=== PATIENT | male | born 1965 | race Caucasian/White ===

== ENCOUNTER 2016-08-18 16:38 | Emergency (ER) | payer MEDICAID ==
[2016-08-18] MEDS ORDERED: LIDOCAINE-EPINEPH-TETRACAINE 3 ML SYRINGE TOP STA (17:40)
[2016-08-18] MEDS ORDERED: CEPHALEXIN 250 MG CAPSULE PO STA (17:41)
[2016-08-18] MEDS ORDERED: LIDOCAINE-EPINEPH-TETRACAINE 3 ML SYRINGE TOP ONE (17:47)
[2016-08-18] MEDS ORDERED: CEPHALEXIN 250 MG CAPSULE PO ONE (17:47)
--- NOTE | 2016-08-18 17:55 | ED Physician Documentation ---
History of Present Illness - Stated complaint Stated Complaint: R FACE LUMP, R WRIST PX - Chief complaint Chief Complaint: Heent - Additonal information Additional information: hx from pt 50 male insidious onset R wrist pain - he may have hit it or fallen but he isnt certain - per daughter it is not uncommon for him not to remember something like an injury also small abscess to R cheek and small sores to R hand and arm no hx MRSA Review of Systems Constitutional: denies: Fever Skin: reports: Lesions Musculoskeletal: reports: Extremity pain PD PAST MEDICAL HISTORY - Past Medical History Past Medical History: Yes Cardiovascular: High cholesterol Endocrine/Autoimmune: Type 2 diabetes Other Past Medical History: chronic neck pain - Past Surgical History Past Surgical History: Yes General: Appendectomy - Present Medications Home Medications: Ambulatory Orders Medication Instructions Recorded Confirmed Aspirin [Aspirin EC] 81 mg PO DAILY 08/18/16 08/18/16 Atorvastatin [Lipitor] 10 mg PO DAILY 08/18/16 08/18/16 Cephalexin [Keflex] 500 mg PO Q6H #28 capsule 08/18/16 Cyclobenzaprine [Flexeril] 10 mg PO DAILY 08/18/16 08/18/16 Gabapentin 300 mg PO DAILY 08/18/16 08/18/16 Lisinopril 5 mg PO DAILY 08/18/16 08/18/16 Mupirocin Calcium [Bactroban] 1 applic TP BID #15 g 08/18/16 Sitagliptin Phosphate [Januvia] 25 mg PO DAILY 08/18/16 08/18/16 - Allergies Allergies/Adverse Reactions: Allergies Allergy/AdvReac Type Severity Reaction Status Date / Time No Known Drug Allergies Allergy Verified 08/18/16 16:52 - Social History Does the pt smoke?: No Smoking Status: Never smoker Does the pt drink ETOH?: No Does the pt have substance abuse?: Yes PD ED PE NORMAL - Vitals Vital signs reviewed: Yes - General General: Alert and oriented X 3 - HEENT HEENT: PERRL, Other (approx 2 cm diamter firm swelling c.w small abscess) - Neck Neck: Supple, no meningeal sign - Cardiac Cardiac: RRR - Respiratory Respiratory: No respiratory distress, Clear bilaterally - Neuro Neuro: Alert and oriented X 3 Results - Vitals Vitals: Vital Signs - 24 hr 08/18/16 16:46 Temperature 36.3 C L Heart Rate 88 Respiratory 18 Rate Blood Pressure 124/90 H O2 Saturation 98 - Rads (name of study) wrist Radiology: See rad report (no acute, suspect avascular necrosis of the scaphoid) Procedures - Abscess I&D (location) face Preparation: Alcohol, LET Incision: Needle aspiration (2.5cc), Purulent drainage, Culture obtained Other: Pt tolerated well, Dressing applied, Antibiotic prescribed Departure - Departure Disposition: 01 Home, Self Care Clinical Impression: Abscess, Avascular necrosis of scaphoid Condition: Good Instructions: ED Abscess IandD Follow-Up: [facility] [Provider Group] Prescriptions: Mupirocin Calcium [Bactroban] 1 applic TP BID #15 g Cephalexin [Keflex] 500 mg PO Q6H #28 capsule Comments: Take the antibiotics as prescribed The xray did not show a new fracture but is appears you have injured a wrist bone called the scaphoid in the past and it did not heal properly because of poor blood flow - you need to follow up with an seo marketing specialist for further care
--- NOTE | 2016-08-18 18:38 | XRAY Preliminary Report ---
Exam: XR Wrist 4 View RT IMPRESSION: 1. No acute bony abnormality. 2. Suspect avascular necrosis of the scaphoid. [facility] SITE ID: [id number]
[2016-08-18 18:45] VITALS: BP 123/93
--- NOTE | 2016-08-18 19:05 | XRAY Report ---
EXAM: RIGHT WRIST RADIOGRAPHY EXAM DATE: 08/18/2016 05:57 PM. CLINICAL HISTORY: Distal radial pain for several days. No precipitating injury. COMPARISON: None. TECHNIQUE: 4 views. FINDINGS: Bones: Trabecular and cortical patterns intact. Inhomogeneous sclerosis, proximal 60% of the scaphoid . Joints: Normal. No subluxations. Soft Tissues: Normal. No soft tissue swelling. IMPRESSION: 1. No acute bony abnormality. 2. Suspect avascular necrosis of the scaphoid. [facility] Referring Provider Line: [phone] SITE ID: [id number]
== END 2016-08-18 19:16 | disposition home or self-care (01) ==
LOC: ED 16:38
DX: L02.01 Cutaneous abscess of face (principal); M87.9 Osteonecrosis, unspecified; E78.00 Pure hypercholesterolemia, unspecified; E11.9 Type 2 diabetes mellitus without complications; Z79.84 Long term (current) use of oral hypoglycemic drugs; Z79.82 Long term (current) use of aspirin
CPT/HCPCS: 99283

== ENCOUNTER 2016-08-18 22:03 | Outpatient (CLI) | payer MEDICAID | END 2016-08-18 22:04 | disposition critical access hospital (66) | LOC: EMS 22:03 | PROVIDERS: ATTEND Surgery | DX: R53.1 Weakness (principal); R61 Generalized hyperhidrosis; R53.83 Other fatigue; R73.09 Other abnormal glucose | CPT/HCPCS: A0425; A0427 ==

== ENCOUNTER 2016-08-18 22:21 | Emergency (ER) | payer MEDICAID ==
[2016-08-18 23:37] LABS: BASOPHILS % (AUTO) 0.5 %; EOSINOPHILS # (AUTO) 0.2 10^3/uL (0.0-0.7); EOSINOPHILS % (AUTO) 3.1 %; HCT - HEMATOCRIT 42.7 % (42.0-52.0); HGB - HEMOGLOBIN 14.2 g/dL (14.0-18.0); LYMPHOCYTES # (AUTO) 1.7 10^3/uL (1.5-3.5); LYMPHOCYTES % (AUTO) 22.5 %; MEAN CORPUSCULAR HEMOGLOBIN 30.3 pg (27.0-31.0); MEAN CORPUSCULAR HGB CONC 33.3 g/dL (32.0-36.0); MEAN PLATELET VOLUME 10.7 fL (7.4-11.4); MONOCYTES # (AUTO) 0.9 10^3/uL (0.0-1.0); MONOCYTES % (AUTO) 11.5 %; NEUTROPHILS # (AUTO) 4.7 10^3/uL (1.5-6.6); NEUTROPHILS % (AUTO) 62.4 %; RED BLOOD COUNT 4.69 10^6/uL (4.70-6.10); RED CELL DISTRIBUTION WIDTH 13.1 % (12.0-15.0); UNCORRECTED WHITE BLOOD COUNT 7.5 x10^3/uL; WHITE BLOOD COUNT 7.5 x10^3/uL (4.8-10.8)
--- NOTE | 2016-08-18 23:41 | ED Physician Documentation ---
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 late in this walk, he became lightheaded, diaphoretic, had generalized weakness, and brief syncopal episode (lasting less than one minute; this is from patient's family member, who is in ED, very angry and offering brief answers to some of my questions; other questions regarding this incident are not answered, but instead are met with repeated requests for a phone manufacturing engineer machining). patient rapidly returned to baseline and presents to ED asymptomatic Review of Systems Constitutional: denies: Fever, Chills, Sweats Cardiac: reports: Reviewed and negative Respiratory: reports: Reviewed and negative GI: reports: Reviewed and negative Musculoskeletal: reports: Extremity pain (right wrist splint in place; no new pain). denies: Neck pain, Back pain Neurologic: reports: Syncope, LOC. denies: Generalized weakness, Focal weakness , Numbness, Seizure, Confused, Altered mental status, Headache, Head injury PD PAST MEDICAL HISTORY - Past Medical History Cardiovascular: High cholesterol Endocrine/Autoimmune: Type 2 diabetes - Past Surgical History Past Surgical History: Yes General: Appendectomy - Present Medications Home Medications: Ambulatory Orders Medication Instructions Recorded Confirmed Aspirin [Aspirin EC] 81 mg PO DAILY 08/18/16 08/18/16 Atorvastatin [Lipitor] 10 mg PO DAILY 08/18/16 08/18/16 Cephalexin [Keflex] 500 mg PO Q6H #28 capsule 08/18/16 08/18/16 Cyclobenzaprine [Flexeril] 10 mg PO PRN PRN 08/18/16 08/18/16 Gabapentin 300 mg PO PRN PRN 08/18/16 08/18/16 Insulin Aspart [NovoLOG] 10 units SQ TID 08/18/16 08/18/16 Insulin Glargine [Lantus] 25 unit SUBQ ONCE 08/18/16 08/18/16 Lisinopril 5 mg PO DAILY 08/18/16 08/18/16 Mupirocin Calcium [Bactroban] 1 applic TP BID #15 g 08/18/16 08/18/16 Sitagliptin Phosphate [Januvia] 25 mg PO DAILY 08/18/16 08/18/16 - Allergies Allergies/Adverse Reactions: Allergies Allergy/AdvReac Type Severity Reaction Status Date / Time pregabalin [From Lyrica] Allergy Unknown Verified 08/18/16 22:30 - Social History Does the pt smoke?: No Smoking Status: Never smoker Does the pt drink ETOH?: No Does the pt have substance abuse?: Yes PD ED PE NORMAL - Vitals Vital signs reviewed: Yes - General General: Alert and oriented X 3, No acute distress, Well developed/nourished, Other (polite, pleasant, cooperative patient in NAD) - HEENT HEENT: PERRL, EOMI, Moist mucous membranes, Other (right facial I&D site with bandage, no active discharge, mild swelling) - Neck Neck: Supple, no meningeal sign, No bony TTP - Cardiac Cardiac: RRR, No murmur - Respiratory Respiratory: No respiratory distress, Clear bilaterally - Derm Derm: Normal color, Warm and dry, No rash - Extremities Extremities: No edema - Neuro Neuro: Alert and oriented X 3, deicer element winder machine 2-12 intact, No motor deficit, No sensory deficit, Normal speech - Psych Psych: Normal mood, Normal affect PD ED PE EXPANDED - GCS Eye Opening: Spontaneous Motor: Obeys Commands Verbal: Oriented Total: 15 Results - Vitals Vitals: Oxygen O2 Source Room air - Labs Labs: Laboratory Tests 08/18/16 08/18/16 22:20 22:20 WBC 7.5 RBC 4.69 L Hgb 14.2 Hct 42.7 MCV 91.0 MCH 30.3 MCHC 33.3 RDW 13.1 Plt Count 172 MPV 10.7 Neut # 4.7 Lymph # 1.7 [place] # 0.9 Eos # 0.2 Baso # 0.0 Absolute Nucleated RBC 0.00 Nucleated RBCs 0.0 Sodium 137 Potassium 3.4 L Chloride 102 Carbon Dioxide 25 Anion Gap 10.0 BUN 9 Creatinine 0.8 Estimated GFR (MDRD) 102 Glucose 315 H Calcium 8.6 Total Bilirubin 0.5 AST 22 ALT 24 Alkaline Phosphatase 111 Total Protein 6.8 Albumin 4.1 Globulin 2.7 Albumin/Globulin Ratio 1.5 Lipase 43 PD MEDICAL DECISION MAKING - ED course Complexity details: reviewed old records, reviewed results, re-evaluated patient , considered differential, d/w patient Departure - Departure Disposition: Home, Self Care Clinical Impression: Syncope, Hyperglycemia Condition: Good Instructions: ED Hyperglycemia Diabetic, ED Fainting Unkn Cause Follow-Up: [facility] [Provider Group] [facility] [Provider Group] Discharge Date/Time: 08/19/16 01:08
[2016-08-18 23:43] LABS: ALBUMIN/GLOBULIN RATIO 1.5 (1.0-2.2); BILIRUBIN,TOTAL 0.5 mg/dL (0.2-1.0); CALCIUM 8.6 mg/dL (8.5-10.3); CREATININE 0.8 mg/dL (0.6-1.2); POTASSIUM 3.4 mmol/L (3.5-5.0); TOTAL PROTEIN 6.8 g/dL (6.7-8.2)
[2016-08-19] MEDS ORDERED: INSULIN REGULAR HUMAN 100 UNIT/1 ML 10 ML MDV IVP STA (00:13)
[2016-08-19] MEDS ORDERED: INSULIN NPH HUMAN 100 UNIT/1 ML 10 ML MDV SUBQ ONE (00:18)
[2016-08-19 00:36] VITALS: BP 117/90
== END 2016-08-19 01:08 | disposition home or self-care (01) ==
LOC: EDUNIT# → ED 22:21
DX: E11.65 Type 2 diabetes mellitus with hyperglycemia (principal); Z79.84 Long term (current) use of oral hypoglycemic drugs; R55 Syncope and collapse; L02.01 Cutaneous abscess of face; L98.9 Disorder of the skin and subcutaneous tissue, unspecified; M87.9 Osteonecrosis, unspecified; M25.531 Pain in right wrist; E78.00 Pure hypercholesterolemia, unspecified; Z79.82 Long term (current) use of aspirin
CPT/HCPCS: 10160; 36415; 73110; 80053; 83690; 85025; 96374; 99283; 99284; A9270; J1815

== ENCOUNTER 2016-09-18 18:36 | Emergency (ER) | payer MEDICAID ==
[2016-09-18] MEDS ORDERED: SODIUM CHLORIDE 0.9% 1,000 ML IV ONE (19:27)
[2016-09-18] MEDS ORDERED: ONDANSETRON 4 MG/2 ML VIAL IVP STA (19:27)
[2016-09-18] MEDS ORDERED: HYDROmorphone 1 MG/ML SYRINGE IVP STA ×2 (19:27→21:54)
--- NOTE | 2016-09-18 19:33 | ED Physician Documentation ---
PD HPI ABD PAIN - Stated complaint Stated Complaint: ABD PAIN - Chief complaint Chief Complaint: Abd Pain - History obtained from History obtained from: Patient - History of Present Illness Timing - onset: Other (50-year-old gentleman with history of appendectomy and chronic back pain presents with relatively sudden onset lower abdominal pain radiating up and down, worse on the left than the right starting about 4 p.m. today associated with mild constipation. He also complains of significant weight loss over the last month, he estimates 20 pounds. He's been nauseous but hasn't vomited. No fevers. [place] which she says is only notable for polyps.) Review of Systems Ten Systems: 10 systems reviewed and negative Constitutional: denies: Fever, Chills Cardiac: denies: Chest pain / pressure, Palpitations Respiratory: denies: Dyspnea, Cough GI: reports: Abdominal Pain, Nausea, Constipation. denies: Vomiting, Diarrhea, Hematemesis, Bloody / black stool : reports: Frequency. denies: Dysuria, Hesitancy PD PAST MEDICAL HISTORY - Past Medical History Past Medical History: Yes Cardiovascular: High cholesterol Endocrine/Autoimmune: Type 2 diabetes - Past Surgical History Past Surgical History: Yes General: Appendectomy - Present Medications Home Medications: Ambulatory Orders Medication Instructions Recorded Confirmed Aspirin [Aspirin EC] 81 mg PO DAILY 08/18/16 08/18/16 Atorvastatin [Lipitor] 10 mg PO DAILY 08/18/16 08/18/16 Cephalexin [Keflex] 500 mg PO Q6H #28 capsule 08/18/16 08/18/16 Cyclobenzaprine [Flexeril] 10 mg PO PRN PRN 08/18/16 08/18/16 Gabapentin 300 mg PO PRN PRN 08/18/16 08/18/16 Insulin Aspart [NovoLOG] 10 units SQ TID 08/18/16 08/18/16 Insulin Glargine [Lantus] 25 unit SUBQ ONCE 08/18/16 08/18/16 Lisinopril 5 mg PO DAILY 08/18/16 08/18/16 Mupirocin Calcium [Bactroban] 1 applic TP BID #15 g 08/18/16 08/18/16 Sitagliptin Phosphate [Januvia] 25 mg PO DAILY 08/18/16 08/18/16 Blood-Glucose Meter [Glucometer] 1 each ONCE #1 each 09/18/16 HYDROcod/ACETAM 5/325 [[place] 5/325] 1 - 2 ea PO Q6H PRN #15 tablet 09/18/16 rifAXIMin [Xifaxan] 550 mg PO BID 14 Days 09/18/16 - Allergies Allergies/Adverse Reactions: Allergies Allergy/AdvReac Type Severity Reaction Status Date / Time cinnamon Allergy Unknown Verified 09/18/16 18:45 pregabalin [From Lyrica] Allergy Unknown Verified 09/18/16 18:45 - Social History Does the pt smoke?: No Smoking Status: Never smoker Does the pt drink ETOH?: No Does the pt have substance abuse?: Yes Substance Use and Type: Marijuana - Family History Family history: reports: Non contributory - Immunizations Immunizations are current?: Yes PD ED PE NORMAL - Vitals Vital signs reviewed: Yes - General General: Alert and oriented X 3, Other (iin pain) - HEENT HEENT: PERRL, EOMI - Neck Neck: Supple, no meningeal sign, No bony TTP - Cardiac Cardiac: RRR, No murmur - Respiratory Respiratory: No respiratory distress, Clear bilaterally - Abdomen Abdomen: Soft, Other (Quite tender in the low abdomen, left greater than right with hyperactive bowel tones but no surgical signs.) - Back Back: No CVA TTP, No spinal TTP - Derm Derm: Normal color, Warm and dry - Extremities Extremities: No edema, No calf tenderness / cord - Neuro Neuro: Alert and oriented X 3, Normal speech - Psych Psych: Normal mood, Normal affect Results - Vitals Vitals: Vital Signs - 24 hr 09/18/16 09/18/16 09/18/16 18:40 19:42 21:40 Temperature 36.9 C 36.8 C 36.8 C Heart Rate 118 H 93 97 Respiratory 22 16 16 Rate Blood Pressure 140/103 H 127/86 H 122/92 H O2 Saturation 98 96 98 Oxygen O2 Source Room air - Labs Labs: Laboratory Tests 09/18/16 09/18/16 09/18/16 19:45 19:45 21:05 WBC 6.5 RBC 4.87 Hgb 15.0 Hct 44.2 MCV 90.6 MCH 30.8 MCHC 34.0 RDW 12.9 Plt Count 140 MPV 10.9 Neut # 4.1 Lymph # 1.5 [place] # 0.8 Eos # 0.1 Baso # 0.0 Absolute Nucleated RBC 0.00 Nucleated RBCs 0.0 Sodium 135 Potassium 3.6 Chloride 99 L Carbon Dioxide 26 Anion Gap 10.0 BUN 5 L Creatinine 0.7 Estimated GFR (MDRD) 118 Glucose 408 H Calcium 8.9 Total Bilirubin 0.6 AST 20 ALT 21 Alkaline Phosphatase 101 Total Protein 7.2 Albumin 4.2 Globulin 3.0 Albumin/Globulin Ratio 1.4 Lipase 31 Urine Color YELLOW Urine Clarity CLEAR Urine pH 5.5 Ur Specific [place] <=1.005 Urine Protein NEGATIVE Urine Glucose (UA) >=1000 H Urine Ketones TRACE Urine Occult Blood NEGATIVE Urine Nitrite NEGATIVE Urine Bilirubin NEGATIVE Urine Urobilinogen 0.2 (NORMAL) Ur Leukocyte Esterase NEGATIVE Ur Microscopic Review NOT INDICATED Urine Culture Comments NOT INDICATED - Rads (name of study) CT A/P Radiology: EMP read contemporaneously (Concern for small bowel bacterial overgrowth) PD MEDICAL DECISION MAKING - ED course ED course: 50-year-old gentleman with diabetes presents with diffuse abdominal pain today and some tenderness but his labs are reassuring with the exception of uncontrolled diabetes for which he was administered IV fluids and insulin here. Of note he is missing his glucometer and a new one was prescribed. CT is suggestive of small bowel overgrowth for which he was prescribed Xifaxan. 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 Make the next available appointment. In the interim return anytime if worse or if new symptoms develop. Your blood pressure was elevated today on check in to the emergency department. This does not mean that you have hypertension, it is a common phenomenon to check into the emergency department and have elevated blood pressure. I recommend that you see your primary care physician within the week to have it rechecked when you're feeling better.
[2016-09-18] MEDS ORDERED: ONDANSETRON 4 MG/2 ML VIAL ONE (19:47)
[2016-09-18] MEDS ORDERED: HYDROmorphone 1 MG/ML SYRINGE ONE ×2 (19:47→22:02)
[2016-09-18 20:02] LABS: BASOPHILS % (AUTO) 0.5 %; EOSINOPHILS # (AUTO) 0.1 10^3/uL (0.0-0.7); EOSINOPHILS % (AUTO) 1.5 %; HCT - HEMATOCRIT 44.2 % (42.0-52.0); LYMPHOCYTES # (AUTO) 1.5 10^3/uL (1.5-3.5); LYMPHOCYTES % (AUTO) 22.7 %; MEAN CORPUSCULAR HEMOGLOBIN 30.8 pg (27.0-31.0); MEAN CORPUSCULAR VOLUME 90.6 fL (80.0-94.0); MEAN PLATELET VOLUME 10.9 fL (7.4-11.4); MONOCYTES # (AUTO) 0.8 10^3/uL (0.0-1.0); MONOCYTES % (AUTO) 12.2 %; NEUTROPHILS # (AUTO) 4.1 10^3/uL (1.5-6.6); NEUTROPHILS % (AUTO) 63.1 %; RED BLOOD COUNT 4.87 10^6/uL (4.70-6.10); RED CELL DISTRIBUTION WIDTH 12.9 % (12.0-15.0); UNCORRECTED WHITE BLOOD COUNT 6.5 x10^3/uL; WHITE BLOOD COUNT 6.5 x10^3/uL (4.8-10.8)
[2016-09-18 20:17] LABS: ALBUMIN/GLOBULIN RATIO 1.4 (1.0-2.2); BILIRUBIN,TOTAL 0.6 mg/dL (0.2-1.0); CALCIUM 8.9 mg/dL (8.5-10.3); CREATININE 0.7 mg/dL (0.6-1.2); POTASSIUM 3.6 mmol/L (3.5-5.0); TOTAL PROTEIN 7.2 g/dL (6.7-8.2)
--- NOTE | 2016-09-18 21:22 | CT Report ---
EXAM: CT ABDOMEN AND PELVIS EXAM DATE: 09/18/2016 08:50 PM. CLINICAL HISTORY: IV only, low abd pain. 20 pound weight loss. COMPARISONS: None. TECHNIQUE: Routine helical CT imaging was performed through the abdomen and pelvis. IV contrast: Amt/ type. Enteric contrast: No. Reconstructions: Coronal and sagittal. In accordance with CT protocol optimization, one or more of the following dose reduction techniques w ere utilized for this exam: automated exposure control, adjustment of mA and/or KV based on patient s ize, or use of iterative reconstructive technique. FINDINGS: Lung Bases: Unremarkable. Liver: Normal. No masses. Gallbladder/Bile Ducts: Unremarkable. Spleen: Normal. Pancreas: Normal. Adrenal Glands: Normal. Kidneys: Normal. No masses or hydronephrosis. Peritoneal Cavity/Bowel: No dilated loops of small bowel. There is air and stool in the colon. There are segments of small bowel with stool. The appendix is not visualized but there are no secondary sig ns of acute appendicitis. Pelvic Organs: Normal. The bladder and visualized pelvic organs are within normal limits. Vasculature: No aneurysms or other significant abnormality. Bones: No significant abnormality. Other: None. IMPRESSION: 1. While there are no dilated loops of small bowel, there are multiple segments of small bowel contai lázaro stool (small bowel feces sign) which can be seen in the setting of obstruction or bacterial over growth. The second etiology is thought more likely in this particular case. Of note, there is a pauci ty of air and fluid within the small bowel. 2. There is a small amount of stool and air in the colon and rectum. 3. No inflammatory process associated with the bowel. No free air or fluid in the abdomen or pelvis. [facility] Referring Provider Line: [phone] SITE ID: [id number]
[2016-09-18 21:25] LABS: BILIRUBIN,URINE NEGATIVE (NEGATIVE); PH,URINE 5.5 PH (5.0-7.5)
[2016-09-18 21:27] LABS: UA CHARGE (STRIP ONLY) YES; UR CULTURE IF IND NOT INDICATED
[2016-09-18] MEDS ORDERED: HYDROcod/ACET 5/325 Prepack 6 PO STA (21:54)
[2016-09-18] MEDS ORDERED: CIPROFLOXACIN 250 MG TABLET PO STA (21:54)
[2016-09-18] MEDS ORDERED: metroNIDAZOLE 250 MG TABLET PO STA (21:54)
[2016-09-18] MEDS ORDERED: rifAXIMin 550 MG TABLET PO STA (21:55)
[2016-09-18] MEDS ORDERED: INSULIN REGULAR HUMAN 100 UNIT/1 ML 10 ML MDV IVP STA (21:56)
[2016-09-18] MEDS ORDERED: INSULIN REGULAR HUMAN 100 UNIT/1 ML 10 ML MDV ONE (22:03)
[2016-09-18] MEDS ORDERED: IOPAMIDOL-300 100 ML VIAL IVP ONE (22:06)
[2016-09-18] MEDS ORDERED: HYDROcod/ACET 5/325 Prepack 6 PO ONE (22:10)
[2016-09-18 22:30] VITALS: BP 135/99
--- NOTE | 2016-09-20 16:23 | ED Physician Documentation ---
ED Addendum - Addendum Addendum: 09/20/16 16:23 Xifaxan not covered by his insurance, authorized change to neomycin, 1 g orally 4 times a day for a week.
== END 2016-09-18 22:30 | disposition home or self-care (01) ==
LOC: ED 18:36
DX: A09 Infectious gastroenteritis and colitis, unspecified (principal); R10.84 Generalized abdominal pain; K59.00 Constipation, unspecified; R03.0 Elevated blood-pressure reading, without diagnosis of hypertension; E78.00 Pure hypercholesterolemia, unspecified; G89.29 Other chronic pain; M54.9 Dorsalgia, unspecified; E11.65 Type 2 diabetes mellitus with hyperglycemia; Z79.4 Long term (current) use of insulin; Z79.82 Long term (current) use of aspirin
CPT/HCPCS: 36415; 74177; 80053; 81003; 83690; 85025; 96361; 96374; 96375; 96376; 99283; 99284; J1170; J1815; J8499; Q9967; 81001; 87086

== ENCOUNTER 2016-09-22 14:41 | Outpatient (CLI) | payer MEDICAID | END 2016-09-22 14:42 | disposition critical access hospital (66) | LOC: EMS 14:41 | PROVIDERS: ATTEND Surgery | DX: R10.32 Left lower quadrant pain (principal) | CPT/HCPCS: A0425; A0427 ==

== ENCOUNTER 2016-09-22 15:06 | Emergency (ER) | payer MEDICAID ==
[2016-09-22] MEDS ORDERED: ONDANSETRON 4 MG/2 ML VIAL IVP STA (15:14)
[2016-09-22] MEDS ORDERED: SODIUM CHLORIDE 0.9% 1,000 ML IV ONE (15:14)
[2016-09-22] MEDS ORDERED: HYDROmorphone 1 MG/ML SYRINGE IVP STA ×2 (15:14→16:18)
[2016-09-22] MEDS ORDERED: HYDROmorphone 1 MG/ML SYRINGE ONE ×2 (15:16→16:34)
[2016-09-22] MEDS ORDERED: ONDANSETRON 4 MG/2 ML VIAL ONE (15:16)
--- NOTE | 2016-09-22 15:17 | ED Physician Documentation ---
PD HPI ABD PAIN - Stated complaint Stated Complaint: ABD PX - Chief complaint Chief Complaint: Abd Pain - History obtained from History obtained from: Patient, EMS - History of Present Illness Timing - onset: Other (50-year-old gentleman brought in by ambulance for recurrent abdominal pain. He recently moved to the area. He was seen on Tuesday, 4 days ago for lower abdominal pain. 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 He was placed on rifaximin, he had some troubles at the pharmacy and was unable to fill that, finally was changed to neomycin which he only filled today. He has diffuse severe abdominal pain that recurred today, waxing and waning with severe episodes, nausea but no vomiting. This all started when he felt like he had had diarrhea but never actually did. Denies any fevers. He is also having a flare of his bullous pemphigoid mainly on his scrotum.) Review of Systems Ten Systems: 10 systems reviewed and negative Constitutional: denies: Fever, Chills Nose: denies: Rhinorrhea / runny nose, Congestion Throat: denies: Dental pain / toothache Cardiac: denies: Chest pain / pressure, Palpitations Respiratory: denies: Dyspnea, Cough PD PAST MEDICAL HISTORY - Past Medical History Cardiovascular: High cholesterol Endocrine/Autoimmune: Type 2 diabetes - Past Surgical History Past Surgical History: Yes General: Appendectomy - Present Medications Home Medications: Ambulatory Orders Medication Instructions Recorded Confirmed Aspirin [Aspirin EC] 81 mg PO DAILY 08/18/16 09/22/16 Atorvastatin [Lipitor] 10 mg PO DAILY 08/18/16 09/22/16 Cephalexin [Keflex] 500 mg PO Q6H #28 capsule 08/18/16 08/18/16 Cyclobenzaprine [Flexeril] 10 mg PO PRN PRN 08/18/16 09/22/16 Gabapentin 300 mg PO PRN PRN 08/18/16 09/22/16 Insulin Aspart [NovoLOG] 10 units SQ TID 08/18/16 09/22/16 Lisinopril 5 mg PO DAILY 08/18/16 09/22/16 Mupirocin Calcium [Bactroban] 1 applic TP BID #15 g 08/18/16 09/22/16 Sitagliptin Phosphate [Januvia] 25 mg PO DAILY 08/18/16 08/18/16 Blood-Glucose Meter [Glucometer] 1 each ONCE #1 each 09/18/16 09/22/16 HYDROcod/ACETAM 5/325 [[place] 5/325] 1 - 2 ea PO Q6H PRN #15 tablet 09/18/16 Insulin Glargine [Lantus] 25 unit SQ QPM 30 Days 09/18/16 09/22/16 rifAXIMin [Xifaxan] 550 mg PO BID 14 Days 09/18/16 Ciprofloxacin HCl [Cipro] 500 mg PO BID #14 tablet 09/22/16 Dicyclomine HCl 20 mg PO QID PRN #20 tablet 09/22/16 Metronidazole [Flagyl] 500 mg PO TID #20 tablet 09/22/16 Oxycodone HCl/Acetaminophen 1 - 2 tab PO Q4H PRN #10 tablet 09/22/16 [Percocet 5-325 mg Tablet] SITagliptin [Januvia] 100 mg PO DAILY 09/22/16 09/22/16 Sumatriptan Succinate 25 mg PO DAILY 09/22/16 09/22/16 - Allergies Allergies/Adverse Reactions: Allergies Allergy/AdvReac Type Severity Reaction Status Date / Time cinnamon Allergy Unknown Verified 09/18/16 18:45 pregabalin [From Lyrica] Allergy Unknown Verified 09/18/16 18:45 - Social History Does the pt smoke?: No Smoking Status: Never smoker Does the pt drink ETOH?: No Does the pt have substance abuse?: Yes - Family History Family history: reports: Non contributory - Immunizations Immunizations are current?: Yes PD ED PE NORMAL - Vitals Vital signs reviewed: Yes - General General: Alert and oriented X 3, Other (For the most part appears comfortable but occasionally having spasms of pain and clutching his abdomen.) - HEENT HEENT: PERRL, EOMI - Neck Neck: Supple, no meningeal sign, No bony TTP - Cardiac Cardiac: RRR, No murmur - Respiratory Respiratory: No respiratory distress, Clear bilaterally - Abdomen Abdomen: Normal bowel sounds, Soft, Other (Diffusely tender without surgical signs) - Back Back: No CVA TTP, No spinal TTP - Derm Derm: Normal color, Warm and dry, Other (One area of skin breakdown under the left breast but no obvious rash on the scrotum. No inguinal hernia.) - Extremities Extremities: No deformity, No edema, No calf tenderness / cord - Neuro Neuro: Alert and oriented X 3, Normal speech - Psych Psych: Normal mood, Normal affect Results - Vitals Vitals: Vital Signs - 24 hr 09/22/16 09/22/16 09/22/16 15:07 16:00 16:42 Temperature 36.8 C Heart Rate 98 78 89 Respiratory 24 20 22 Rate Blood Pressure 137/94 H 139/90 H 146/86 H O2 Saturation 100 98 99 09/22/16 09/22/16 09/22/16 17:02 18:56 19:50 Temperature Heart Rate 78 97 98 Respiratory 22 20 16 Rate Blood Pressure 149/91 H 143/98 H 108/80 O2 Saturation 98 97 97 Oxygen O2 Source Room air - Labs Labs: Laboratory Tests 09/22/16 09/22/16 09/22/16 15:25 15:25 15:41 WBC 6.4 RBC 5.06 Hgb 15.6 Hct 46.3 MCV 91.5 MCH 30.8 MCHC 33.7 RDW 12.9 Plt Count 163 MPV 10.7 Neut # 4.2 Lymph # 1.3 L [place] # 0.7 Eos # 0.1 Baso # 0.1 Absolute Nucleated RBC 0.00 Nucleated RBCs 0.0 Sodium 137 Potassium 3.7 Chloride 102 Carbon Dioxide 22 Anion Gap 13.0 BUN 7 Creatinine 0.8 Estimated GFR (MDRD) 102 Glucose 346 H Lactic Acid Calcium 9.6 Total Bilirubin 0.6 AST 33 ALT 30 Alkaline Phosphatase 93 Total Protein 7.4 Albumin 4.3 Globulin 3.1 Albumin/Globulin Ratio 1.4 Lipase 28 Urine Color YELLOW Urine Clarity CLEAR Urine pH 7.0 Ur Specific [place] 1.010 Urine Protein NEGATIVE Urine Glucose (UA) >=1000 H Urine Ketones NEGATIVE Urine Occult Blood NEGATIVE Urine Nitrite NEGATIVE Urine Bilirubin NEGATIVE Urine Urobilinogen 0.2 (NORMAL) Ur Leukocyte Esterase NEGATIVE Ur Microscopic Review NOT INDICATED Urine Culture Comments NOT INDICATED Urine Opiates Screen POSITIVE H Ur Oxycodone Screen NEGATIVE Urine Methadone Screen NEGATIVE Ur Propoxyphene Screen NEGATIVE Ur Barbiturates Screen NEGATIVE Ur Tricyclics Screen NEGATIVE Ur Phencyclidine Scrn NEGATIVE Ur Amphetamine Screen NEGATIVE U Methamphetamines Scrn NEGATIVE U Benzodiazepines Scrn NEGATIVE Urine Cocaine Screen NEGATIVE U Cannabinoids Screen POSITIVE H 09/22/16 18:49 WBC RBC Hgb Hct MCV MCH MCHC RDW Plt Count MPV Neut # Lymph # [place] # Eos # Baso # Absolute Nucleated RBC Nucleated RBCs Sodium Potassium Chloride Carbon Dioxide Anion Gap BUN Creatinine Estimated GFR (MDRD) Glucose Lactic Acid 1.4 Calcium Total Bilirubin AST ALT Alkaline Phosphatase Total Protein Albumin Globulin Albumin/Globulin Ratio Lipase Urine Color Urine Clarity Urine pH Ur Specific [place] Urine Protein Urine Glucose (UA) Urine Ketones Urine Occult Blood Urine Nitrite Urine Bilirubin Urine Urobilinogen Ur Leukocyte Esterase Ur Microscopic Review Urine Culture Comments Urine Opiates Screen Ur Oxycodone Screen Urine Methadone Screen Ur Propoxyphene Screen Ur Barbiturates Screen Ur Tricyclics Screen Ur Phencyclidine Scrn Ur Amphetamine Screen U Methamphetamines Scrn U Benzodiazepines Scrn Urine Cocaine Screen U Cannabinoids Screen - Rads (name of study) Ct A/P Radiology: EMP read contemporaneously (NAD) PD MEDICAL DECISION MAKING - ED course ED course: 50-year-old gentleman presents again for abdominal pain, CT give a day showed potential small bowel overgrowth. He was unable to fill the antibiotics. Given the severe continued pain, repeat exam, labs, imaging were ordered. Initial exam was quite tender but he was distractible from the pain and had no surgical signs. On reevaluation prior to discharge he was completely nontender. The surgeon saw him and had no specific diagnosis, but did request a lactate which was done and negative. Patient had a specific concern about testicular torsion, but he has diffuse abdominal pain so doesn't really fit. Testicles were specifically examined and had normal lie normal cremaster reflex without swelling or tenderness. - Consults Consults: Request consultant technology evaluate patient (Dr Gibson, surgeon amortization clerk, will see in ED [id number]) Departure - Departure Disposition: 01 Home, Self Care Clinical Impression: Abdominal pain Qualifiers: Abdominal location: generalized Qualified Code(s): R10.84 - Generalized abdominal pain Uncontrolled diabetes mellitus Qualifiers: Diabetes mellitus type: type 2 Diabetes mellitus complication status: with hyperglycemia Diabetes mellitus intermediate teacher insulin use: with intermediate teacher use Qualified Code(s): E11.65 - Type 2 diabetes mellitus with hyperglycemia Condition: Good Record reviewed to determine appropriate education?: Yes Instructions: Abdominal Pain Prescriptions: Ciprofloxacin HCl [Cipro] 500 mg PO BID #14 tablet Dicyclomine HCl 20 mg PO QID PRN #20 tablet PRN Reason: Abdominal Cramps Metronidazole [Flagyl] 500 mg PO TID #20 tablet Oxycodone HCl/Acetaminophen [Percocet 5-325 mg Tablet] 1 - 2 tab PO Q4H PRN #10 tablet PRN Reason: Pain Comments: Return in 12 hours if not improving, any time if worse or if new symptoms develop. Continue your efforts to try to control your blood sugars. Do not drink or drive while on narcotic pain medicine. Note that many narcotic pain relievers also contain tylenol/acetaminophen. Please ensure that your total dose of acetaminophen from all sources does not exceed 3 grams (3000mg) per day. You may constipated on this medication, take a stool softener such as "Colace" twice a day while you are on it. Also recommend a [id number] laxative such as senna or MiraLAX any day that you do not have a bowel movement. If you received narcotic pain medication in the emergency department, do not drive or operate machinery for the next 24 hours. Your blood pressure was elevated today on check in to the emergency department. This does not mean that you have hypertension, it is a common phenomenon to check into the emergency department and have elevated blood pressure. I recommend that you see your primary care physician within the week to have it rechecked when you're feeling better. Discharge Date/Time: 09/22/16 20:00
[2016-09-22 15:34] LABS: BASOPHILS # (AUTO) 0.1 10^3/uL (0.0-0.1); BASOPHILS % (AUTO) 0.8 %; EOSINOPHILS # (AUTO) 0.1 10^3/uL (0.0-0.7); EOSINOPHILS % (AUTO) 1.6 %; HCT - HEMATOCRIT 46.3 % (42.0-52.0); HGB - HEMOGLOBIN 15.6 g/dL (14.0-18.0); LYMPHOCYTES # (AUTO) 1.3 10^3/uL (1.5-3.5); LYMPHOCYTES % (AUTO) 20.6 %; MEAN CORPUSCULAR HEMOGLOBIN 30.8 pg (27.0-31.0); MEAN CORPUSCULAR HGB CONC 33.7 g/dL (32.0-36.0); MEAN CORPUSCULAR VOLUME 91.5 fL (80.0-94.0); MEAN PLATELET VOLUME 10.7 fL (7.4-11.4); MONOCYTES # (AUTO) 0.7 10^3/uL (0.0-1.0); MONOCYTES % (AUTO) 10.6 %; NEUTROPHILS # (AUTO) 4.2 10^3/uL (1.5-6.6); NEUTROPHILS % (AUTO) 66.4 %; RED BLOOD COUNT 5.06 10^6/uL (4.70-6.10); RED CELL DISTRIBUTION WIDTH 12.9 % (12.0-15.0); UNCORRECTED WHITE BLOOD COUNT 6.4 x10^3/uL; WHITE BLOOD COUNT 6.4 x10^3/uL (4.8-10.8)
[2016-09-22 15:44] LABS: ALBUMIN/GLOBULIN RATIO 1.4 (1.0-2.2); BILIRUBIN,TOTAL 0.6 mg/dL (0.2-1.0); CALCIUM 9.6 mg/dL (8.5-10.3); CREATININE 0.8 mg/dL (0.6-1.2); POTASSIUM 3.7 mmol/L (3.5-5.0); TOTAL PROTEIN 7.4 g/dL (6.7-8.2)
[2016-09-22 16:00] LABS: BILIRUBIN,URINE NEGATIVE (NEGATIVE)
[2016-09-22 16:02] LABS: UA CHARGE (STRIP ONLY) YES; UR CULTURE IF IND NOT INDICATED
[2016-09-22] MEDS ORDERED: IOPAMIDOL-300 100 ML VIAL IVP ONE (17:00)
[2016-09-22] MEDS ORDERED: LORazepam 2 MG/ML SYRINGE IVP STA (17:15)
--- NOTE | 2016-09-22 17:16 | CT Preliminary Report ---
Exam: CT Abdomen/Pelvis W/ IMPRESSION: Normal abdomen and pelvis CT. [facility] SITE ID: [id number]
--- NOTE | 2016-09-22 17:19 | CT Report ---
EXAM: CT ABDOMEN AND PELVIS EXAM DATE: 09/22/2016 05:01 PM. CLINICAL HISTORY: Worsening low/mid abdomen pain. COMPARISONS: None. TECHNIQUE: Routine helical CT imaging was performed through the abdomen and pelvis. IV contrast: 100 cc of Isovue-300. Enteric contrast: No. Reconstructions: Coronal and sagittal. In accordance with CT protocol optimization, one or more of the following dose reduction techniques w ere utilized for this exam: automated exposure control, adjustment of mA and/or KV based on patient s ize, or use of iterative reconstructive technique. FINDINGS: Lung Bases: Unremarkable. Liver: Normal. No masses. Gallbladder/Bile Ducts: Unremarkable. Spleen: Normal. Pancreas: Normal. Adrenal Glands: Normal. Kidneys: Normal. No masses or hydronephrosis. Peritoneal Cavity/Bowel: Normal. No free fluid, free air or adenopathy. No masses or acute inflammato ry process. Nonvisualized appendix. Pelvic Organs: Prostate and bladder are unremarkable. Vasculature: No aneurysms or other significant abnormality. Bones: No significant abnormality. Other: None. IMPRESSION: Normal abdomen and pelvis CT. [facility] Referring Provider Line: [phone] SITE ID: [id number]
[2016-09-22] MEDS ORDERED: LORazepam 2 MG/ML SYRINGE ONE (18:12)
--- NOTE | 2016-09-22 18:50 | CONSULTATION NOTE ---
Surgery Consult - Home Meds/Allergies Home Medications: Patient History Medication Instructions Recorded Confirmed Aspirin [Aspirin EC] 81 mg PO DAILY 08/18/16 09/22/16 Atorvastatin [Lipitor] 10 mg PO DAILY 08/18/16 09/22/16 Cyclobenzaprine [Flexeril] 10 mg PO PRN PRN 08/18/16 09/22/16 Gabapentin 300 mg PO PRN PRN 08/18/16 09/22/16 Insulin Aspart [NovoLOG] 10 units SQ TID 08/18/16 09/22/16 Lisinopril 5 mg PO DAILY 08/18/16 09/22/16 Sitagliptin Phosphate [Januvia] 25 mg PO DAILY 08/18/16 08/18/16 SITagliptin [Januvia] 100 mg PO DAILY 09/22/16 09/22/16 Sumatriptan Succinate 25 mg PO DAILY 09/22/16 09/22/16 Allergies/Adverse Reactions: Allergies Allergy/AdvReac Type Severity Reaction Status Date / Time cinnamon Allergy Unknown Verified 09/18/16 18:45 pregabalin [From Lyrica] Allergy Unknown Verified 09/18/16 18:45 - Consultation Note Consultation Note: PD HPI ABD PAIN - Stated complaint Stated Complaint: ABD PX - Chief complaint Chief Complaint: Abd Pain - History obtained from History obtained from: Patient, EMS - History of Present Illness 50 yo male c/o 8-10/10 intermittent lower sharp abdominal pain that radiates to back bilateral x 5 days. First time episode. LBM today with diarrhea. Denies N/ V. No fevers. Last meal this afternoon which he tolerated. He states he has moved recently to the area and does not yet have a PCP. No new foods no recent travels outside [facility]. Previous hx of open appendectomy 1988. 20 lb weight loss since august 2016 due to "carb counting" has had multiple cervical spine fusions with hardware placed. pt came to ED 09/18/[address] at the time showed small bowel which contained stool without dilated loops of bowel read as likely bacterial overgrowth but did not rule out possibility of obstruction, stool and air noted in the colon. Review of Systems Ten Systems: 10 systems reviewed and negative Constitutional: denies: Fever, Chills Nose: denies: Rhinorrhea / runny nose, Congestion Throat: denies: Dental pain / toothache Cardiac: denies: Chest pain / pressure, Palpitations Respiratory: denies: Dyspnea, Cough PD PAST MEDICAL HISTORY - Past Medical History Cardiovascular: High cholesterol Endocrine/Autoimmune: Type 2 diabetes Bullous pemphigoid - Past Surgical History Past Surgical History: Yes General: Appendectomy - Present Medications Home Medications: Ambulatory Orders Medication Instructions Recorded Confirmed Aspirin [Aspirin EC] 81 mg PO DAILY 08/18/16 09/22/16 Atorvastatin [Lipitor] 10 mg PO DAILY 08/18/16 09/22/16 Cephalexin [Keflex] 500 mg PO Q6H #28 capsule 08/18/16 08/18/16 Cyclobenzaprine [Flexeril] 10 mg PO PRN PRN 08/18/16 09/22/16 Gabapentin 300 mg PO PRN PRN 08/18/16 09/22/16 Insulin Aspart [NovoLOG] 10 units SQ TID 08/18/16 09/22/16 Lisinopril 5 mg PO DAILY 08/18/16 09/22/16 Mupirocin Calcium [Bactroban] 1 applic TP BID #15 g 08/18/16 09/22/16 Sitagliptin Phosphate [Januvia] 25 mg PO DAILY 08/18/16 08/18/16 Blood-Glucose Meter [Glucometer] 1 each MC ONCE #1 each 09/18/16 09/22/16 HYDROcod/ACETAM 5/325 [[place] 5/325] 1 - 2 ea PO Q6H PRN #15 tablet 09/18/16 Insulin Glargine [Lantus] 25 unit SQ QPM 30 Days 09/18/16 09/22/16 rifAXIMin [Xifaxan] 550 mg PO BID 14 Days 09/18/16 SITagliptin [Januvia] 100 mg PO DAILY 09/22/16 09/22/16 Sumatriptan Succinate 25 mg PO DAILY 09/22/16 09/22/16 - Allergies Allergies/Adverse Reactions: Allergies Allergy/AdvReac Type Severity Reaction Status Date / Time cinnamon Allergy Unknown Verified 09/18/16 18:45 pregabalin [From Lyrica] Allergy Unknown Verified 09/18/16 18:45 - Social History Does the pt smoke?: No Smoking Status: Never smoker Does the pt drink ETOH?: No Does the pt have substance abuse?: Yes, THC - Family History Family history: reports: Non contributory - Immunizations Immunizations are current?: Yes PE - Vitals Vital signs reviewed: Yes - General General: Alert and oriented X 3 appears in moderate distress - HEENT HEENT: PERRL, EOMI - Neck Neck: Supple, P - Cardiac Cardiac: RRR, No murmur - Respiratory Respiratory: CTA B/L - Abdomen Abdomen: +BS, soft, TTP diffusely, non distended. No groin or ventral hernias palpated. Voluntary guarding. Negative heel Jar test. Rectal good tone. minimal stool in vault, guaiac negative - Back Back: No CVA TTP, No spinal TTP - Derm Derm: warm & dry with localized rashes breast, penis pt attributes to "buullous pemphigoid" - Extremities Extremities: No deformity, No edema, No calf tenderness / cord - Neuro Neuro: Alert and oriented X 3, Normal speech - Psych Psych: Normal mood, Normal affect Results - Vitals Vitals: Vital Signs - 24 hr 09/22/16 09/22/16 09/22/16 15:07 16:00 16:42 Temperature 36.8 C Heart Rate 98 78 89 Respiratory 24 20 22 Rate Blood Pressure 137/94 H 139/90 H 146/86 H O2 Saturation 100 98 99 09/22/16 17:02 Temperature Heart Rate 78 Respiratory 22 Rate Blood Pressure 149/91 H O2 Saturation 98 Oxygen O2 Source Room air - Labs Labs: Laboratory Tests 09/22/16 09/22/16 09/22/16 15:25 15:25 15:41 WBC 6.4 RBC 5.06 Hgb 15.6 Hct 46.3 MCV 91.5 MCH 30.8 MCHC 33.7 RDW 12.9 Plt Count 163 MPV 10.7 Neut # 4.2 Lymph # 1.3 L [place] # 0.7 Eos # 0.1 Baso # 0.1 Absolute Nucleated RBC 0.00 Nucleated RBCs 0.0 Sodium 137 Potassium 3.7 Chloride 102 Carbon Dioxide 22 Anion Gap 13.0 BUN 7 Creatinine 0.8 Estimated GFR (MDRD) 102 Glucose 346 H Calcium 9.6 Total Bilirubin 0.6 AST 33 ALT 30 Alkaline Phosphatase 93 Total Protein 7.4 Albumin 4.3 Globulin 3.1 Albumin/Globulin Ratio 1.4 Lipase 28 Urine Color YELLOW Urine Clarity CLEAR Urine pH 7.0 Ur Specific [place] 1.010 Urine Protein NEGATIVE Urine Glucose (UA) >=1000 H Urine Ketones NEGATIVE Urine Occult Blood NEGATIVE Urine Nitrite NEGATIVE Urine Bilirubin NEGATIVE Urine Urobilinogen 0.2 (NORMAL) Ur Leukocyte Esterase NEGATIVE Ur Microscopic Review NOT INDICATED Urine Culture Comments NOT INDICATED Urine Opiates Screen POSITIVE H Ur Oxycodone Screen NEGATIVE Urine Methadone Screen NEGATIVE Ur Propoxyphene Screen NEGATIVE Ur Barbiturates Screen NEGATIVE Ur Tricyclics Screen NEGATIVE Ur Phencyclidine Scrn NEGATIVE Ur Amphetamine Screen NEGATIVE U Methamphetamines Scrn NEGATIVE U Benzodiazepines Scrn NEGATIVE Urine Cocaine Screen NEGATIVE U Cannabinoids Screen POSITIVE H 09/22/16 CT with IV contrast FINDINGS: Lung Bases: Unremarkable. Liver: Normal. No masses. Gallbladder/Bile Ducts: Unremarkable. Spleen: Normal. Pancreas: Normal. Adrenal Glands: Normal. Kidneys: Normal. No masses or hydronephrosis. Peritoneal Cavity/Bowel: Normal. No free fluid, free air or adenopathy. No masses or acute inflammatory process. Nonvisualized appendix. Pelvic Organs: Prostate and bladder are unremarkable. Vasculature: No aneurysms or other significant abnormality. Bones: No significant abnormality. Other: None. IMPRESSION: Normal abdomen and pelvis CT. A/P 50 yo male with DM & Bullous pemphigoid with 5 day hx of abdominal , with normal labs and vitals and ct read as normal, unremarkable exam, normal lactate after 5 [address] scans. No surgical intervention at this time, possibly related to elevated glucose levels, recommend hydration, muscle relaxer, bowel motility medication such as erythromycin or Reglan.
[2016-09-22] MEDS ORDERED: metroNIDAZOLE 250 MG TABLET PO STA (19:35)
[2016-09-22] MEDS ORDERED: CIPROFLOXACIN 250 MG TABLET PO STA (19:35)
[2016-09-22] MEDS ORDERED: CIPROFLOXACIN 250 MG TABLET PO ONE (19:44)
[2016-09-22] MEDS ORDERED: metroNIDAZOLE 250 MG TABLET PO ONE (19:44)
[2016-09-22 20:01] VITALS: BP 108/80
== END 2016-09-22 20:00 | disposition home or self-care (01) ==
LOC: EDUNIT# → ED 15:06
DX: E11.65 Type 2 diabetes mellitus with hyperglycemia (principal); Z79.4 Long term (current) use of insulin; R10.84 Generalized abdominal pain; E78.00 Pure hypercholesterolemia, unspecified; Z79.82 Long term (current) use of aspirin; R03.0 Elevated blood-pressure reading, without diagnosis of hypertension
CPT/HCPCS: 36415; 74177; 80053; 80306; 81003; 83605; 83690; 85025; 96374; 96375; 96376; 99284; A9270; J1170; J2060; Q9967; 81001; 87086

== ENCOUNTER 2016-09-23 11:48 | Outpatient (CLI) | payer MEDICAID | END 2016-09-23 11:49 | disposition critical access hospital (66) | LOC: EMS 11:48 | PROVIDERS: ATTEND Surgery | DX: R10.32 Left lower quadrant pain (principal) | CPT/HCPCS: A0425; A0427 ==

== ENCOUNTER 2016-09-23 12:14 | Emergency (ER) | payer MEDICAID ==
[2016-09-23] MEDS ORDERED: HALOPERIDOL 5 MG/ML VIAL IVP STA (12:57)
[2016-09-23] MEDS ORDERED: diphenhydrAMINE INJ 50 MG/ML VIAL IVP STA (12:58)
[2016-09-23 13:05] LABS: BASOPHILS % (AUTO) 0.5 %; EOSINOPHILS # (AUTO) 0.1 10^3/uL (0.0-0.7); EOSINOPHILS % (AUTO) 2.7 %; HCT - HEMATOCRIT 40.9 % (42.0-52.0); LYMPHOCYTES % (AUTO) 20.3 %; MEAN CORPUSCULAR HEMOGLOBIN 31.1 pg (27.0-31.0); MEAN CORPUSCULAR HGB CONC 34.2 g/dL (32.0-36.0); MEAN CORPUSCULAR VOLUME 90.8 fL (80.0-94.0); MEAN PLATELET VOLUME 10.5 fL (7.4-11.4); MONOCYTES # (AUTO) 0.6 10^3/uL (0.0-1.0); NEUTROPHILS # (AUTO) 3.3 10^3/uL (1.5-6.6); NEUTROPHILS % (AUTO) 65.5 %; RED BLOOD COUNT 4.51 10^6/uL (4.70-6.10); RED CELL DISTRIBUTION WIDTH 13.1 % (12.0-15.0)
--- NOTE | 2016-09-23 13:05 | ED Physician Documentation ---
History of Present Illness - Stated complaint Stated Complaint: ABD PX - Chief complaint Chief Complaint: Abd Pain - History obtained from History obtained from: Patient - History of Present Illness Timing: How many days ago (5) Pain level max: 10 Pain level now: 10 Quality: "pain" Improved by: nothing Worsened by: nothing - Additonal information Additional information: Patient is a 50-year-old male who presents to the emergency department with abdominal pain for the past 5 days. Rates the pain as a 10 out of 10. Has been trialed on oxycodone and Vicodin for home without relief. This is his third emergency department visit in the past 5 days. Has had 2 negative CAT scans. Had a surgical consult yesterday. Denies any fevers. Has had diarrhea. No vomiting. States he has had intermittent tingling in his legs, right worse than left. Does have a history of neck and lumbar spinal issues. Denies any IV drug use, but does use marijuana frequently. Review of Systems Ten Systems: 10 systems reviewed and negative Constitutional: denies: Fever, Chills Ears: denies: Ear pain Nose: denies: Rhinorrhea / runny nose, Congestion Throat: denies: Sore throat Cardiac: denies: Chest pain / pressure Respiratory: denies: Cough GI: reports: Diarrhea. denies: Nausea, Vomiting, Constipation, Hematemesis, Bloody / black stool : reports: Incontinent (states sometimes has trouble knowing when he needs to urinate). denies: Dysuria, Frequency, Hesitancy, Unable to Void Musculoskeletal: reports: Neck pain (chronic, unchanged) Neurologic: denies: Generalized weakness, Focal weakness, Confused, Altered mental status, LOC Psychiatric: reports: Depressed (states his depression and bipolar are "in remission") PD PAST MEDICAL HISTORY - Past Medical History Past Medical History: Yes Cardiovascular: High cholesterol Endocrine/Autoimmune: Type 2 diabetes Psych: Depression, Bipolar disorder Musculoskeletal: Chronic back pain - Past Surgical History Past Surgical History: Yes General: Appendectomy - Present Medications Home Medications: Ambulatory Orders Medication Instructions Recorded Confirmed Aspirin [Aspirin EC] 81 mg PO DAILY 08/18/16 09/23/16 Atorvastatin [Lipitor] 10 mg PO DAILY 08/18/16 09/23/16 Cephalexin [Keflex] 500 mg PO Q6H #28 capsule 08/18/16 09/23/16 Cyclobenzaprine [Flexeril] 10 mg PO PRN PRN 08/18/16 09/23/16 Gabapentin 300 mg PO PRN PRN 08/18/16 09/23/16 Insulin Aspart [NovoLOG] 10 units SQ TID 08/18/16 09/23/16 Lisinopril 5 mg PO DAILY 08/18/16 09/23/16 Mupirocin Calcium [Bactroban] 1 applic TP BID #15 g 08/18/16 09/23/16 Sitagliptin Phosphate [Januvia] 25 mg PO DAILY 08/18/16 09/23/16 Blood-Glucose Meter [Glucometer] 1 each MC ONCE #1 each 09/18/16 09/23/16 HYDROcod/ACETAM 5/325 [[place] 5/325] 1 - 2 ea PO Q6H PRN #15 tablet 09/18/16 Insulin Glargine [Lantus] 25 unit SQ QPM 30 Days 09/18/16 09/23/16 rifAXIMin [Xifaxan] 550 mg PO BID 14 Days 09/18/16 09/23/16 Ciprofloxacin HCl [Cipro] 500 mg PO BID #14 tablet 09/22/16 09/23/16 Dicyclomine HCl 20 mg PO QID PRN #20 tablet 09/22/16 09/23/16 Metronidazole [Flagyl] 500 mg PO TID #20 tablet 09/22/16 09/23/16 Oxycodone HCl/Acetaminophen 1 - 2 tab PO Q4H PRN #10 tablet 09/22/16 09/23/16 [Percocet 5-325 mg Tablet] SITagliptin [Januvia] 100 mg PO DAILY 09/22/16 09/23/16 Sumatriptan Succinate 25 mg PO DAILY 09/22/16 09/23/16 Hyoscyamine Sulfate [Levsin-Sl] 0.125 mg SL Q4HR PRN #30 tab.subl 09/23/16 Meloxicam [Mobic] 7.5 mg PO BID PRN #20 tablet 09/23/16 - Allergies Allergies/Adverse Reactions: Allergies Allergy/AdvReac Type Severity Reaction Status Date / Time cinnamon Allergy Unknown Verified 09/23/16 12:22 pregabalin [From Lyrica] Allergy Unknown Verified 09/23/16 12:22 - Social History Does the pt smoke?: No Smoking Status: Never smoker Does the pt drink ETOH?: No Does the pt have substance abuse?: Yes Substance Use and Type: Marijuana - Family History Family history: reports: Non contributory - Immunizations Immunizations are current?: Yes PD ED PE NORMAL - Vitals Vital signs reviewed: Yes - General General: Alert and oriented X 3, No acute distress, Well developed/nourished - HEENT HEENT: PERRL, Moist mucous membranes - Neck Neck: Supple, no meningeal sign - Cardiac Cardiac: RRR, Strong equal pulses - Respiratory Respiratory: No respiratory distress, Clear bilaterally - Abdomen Abdomen: Normal bowel sounds, Soft, Non distended, Other (diffusely TTP without peritoneal signs) - Male Male : Other (normal exam Other than a mildly erythematous scrotum., no decreased sensation, normal testicular exam.) - Back Back: Other (mild low lumbar TTP, mainly paraspinal. 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1 Plt Count 141 MPV 10.5 Neut # 3.3 Lymph # 1.0 L [place] # 0.6 Eos # 0.1 Baso # 0.0 Absolute Nucleated RBC 0.00 Nucleated RBCs 0.0 ESR 6 Sodium 139 Potassium 3.7 Chloride 105 Carbon Dioxide 26 Anion Gap 8.0 BUN 6 Creatinine 0.6 Estimated GFR (MDRD) 141 Glucose 253 H Calcium 8.5 Total Bilirubin 0.6 AST 33 ALT 31 Alkaline Phosphatase 79 C-Reactive Protein < 1.0 Total Protein 6.2 L Albumin 3.7 Globulin 2.5 Albumin/Globulin Ratio 1.5 Lipase 17 L PD MEDICAL DECISION MAKING - ED course Complexity details: reviewed old records, reviewed results, re-evaluated patient , considered differential, d/w patient ED course: Patient is a 50-year-old male who presents to the emergency department with abdominal pain of unclear etiology. He was given Haldol for possible cannabinoid induced pain, this did seem to help him slightly. He was then given Toradol and Levsin. This decreased his pain to approximately 3 out of 10. He had had Dilaudid over the past few days, but this never really seemed to help his pain. Possible that this related to intestinal spasms coming from the bacterial overgrowth. We encouraged him to take his ciprofloxacin and Flagyl that he has been previously prescribed. Has not filled the prescription yet, but states that he will today. Patient is very well-appearing, nontoxic. Afebrile. Abdomen is soft, nontender nondistended on serial examination. No peritoneal signs. Has had [address] scans over the past few days. Will not repeat this today. Patient counseled regarding signs and symptoms for which I believe and urgent re-evaluation would be necessary. Patient with good understanding of and agreement to plan and is comfortable going home at this time This document was made in part using voice recognition software. While efforts are made to proofread this document, sound alike and grammatical errors may occur. Departure - Departure Disposition: 01 Home, Self Care Clinical Impression: Small intestinal bacterial overgrowth, Cellulitis of scrotum Abdominal pain Qualifiers: Abdominal location: generalized Qualified Code(s): R10.84 - Generalized abdominal pain Condition: Good Instructions: ED Abdominal Pain Unkn Cause Follow-Up: your,doctor in 1 week [Other] Prescriptions: Hyoscyamine Sulfate [Levsin-Sl] 0.125 mg SL Q4HR PRN #30 tab.subl PRN Reason: Abdominal Pain Meloxicam [Mobic] 7.5 mg PO BID PRN #20 tablet PRN Reason: pain Comments: Please start taking the antibiotics at home you were prescribed previously. Return if you worsen Discharge Date/Time: 09/23/16 15:54
[2016-09-23 13:20] LABS: ALBUMIN/GLOBULIN RATIO 1.5 (1.0-2.2); BILIRUBIN,TOTAL 0.6 mg/dL (0.2-1.0); BUN - BLOOD UREA NITROGEN 6 mg/dL (6-20); CALCIUM 8.5 mg/dL (8.5-10.3); CARBON DIOXIDE - CO2 26 mmol/L (21-32); CHLORIDE 105 mmol/L (101-111); CREATININE 0.6 mg/dL (0.6-1.2); GFR - MDRD 141 (>89); GLUCOSE 253 mg/dL (70-100); LIPASE 17 U/L (22-51); POTASSIUM 3.7 mmol/L (3.5-5.0); SODIUM 139 mmol/L (135-145); TOTAL PROTEIN 6.2 g/dL (6.7-8.2)
[2016-09-23] MEDS ORDERED: diphenhydrAMINE INJ 50 MG/ML VIAL ONE (13:20)
[2016-09-23] MEDS ORDERED: HALOPERIDOL 5 MG/ML VIAL ONE (13:20)
[2016-09-23] MEDS ORDERED: KETOROLAC 60 MG/2 ML VIAL IVP STA (13:51)
[2016-09-23] MEDS ORDERED: HYOSCYAMINE SL 0.125 MG TABLET SL STA (13:52)
[2016-09-23] MEDS ORDERED: CIPROFLOXACIN 250 MG TABLET PO STA (13:52)
[2016-09-23] MEDS ORDERED: metroNIDAZOLE 250 MG TABLET PO STA (13:52)
[2016-09-23] MEDS ORDERED: KETOROLAC 30 MG/ML VIAL ONE (13:56)
[2016-09-23] MEDS ORDERED: CIPROFLOXACIN 250 MG TABLET PO ONE (13:57)
[2016-09-23] MEDS ORDERED: metroNIDAZOLE 250 MG TABLET PO ONE (13:57)
[2016-09-23 15:54] VITALS: BP 102/74
== END 2016-09-23 15:54 | disposition home or self-care (01) ==
LOC: EDUNIT# → ED 12:14
DX: K59.8 Other specified functional intestinal disorders (principal); B96.89 Other specified bacterial agents as the cause of diseases classified elsewhere; N49.2 Inflammatory disorders of scrotum; R10.84 Generalized abdominal pain; E11.9 Type 2 diabetes mellitus without complications; Z79.4 Long term (current) use of insulin; E78.00 Pure hypercholesterolemia, unspecified; Z79.82 Long term (current) use of aspirin
CPT/HCPCS: 36415; 80053; 83690; 85025; 85651; 86140; 96374; 96375; 99284; A9270

== ENCOUNTER 2016-10-05 20:30 | Outpatient (CLI) | payer MEDICAID | END 2016-10-05 20:31 | disposition critical access hospital (66) | DX: R10.9 Unspecified abdominal pain (principal); R19.7 Diarrhea, unspecified | CPT/HCPCS: A0425; A0427 ==

== ENCOUNTER 2016-10-05 20:49 | Emergency (ER) | payer MEDICAID ==
[2016-10-05] MEDS ORDERED: SODIUM CHLORIDE 0.9% 1,000 ML IV STA (21:23)
[2016-10-05] MEDS ORDERED: KETOROLAC 60 MG/2 ML VIAL IVP STA (21:23)
[2016-10-05] MEDS ORDERED: ONDANSETRON 4 MG/2 ML VIAL IVP STA (21:24)
[2016-10-05] MEDS ORDERED: HYOSCYAMINE SL 0.125 MG TABLET SL STA (21:26)
[2016-10-05] MEDS ORDERED: KETOROLAC 30 MG/ML VIAL ONE (21:52)
[2016-10-05] MEDS ORDERED: ONDANSETRON 4 MG/2 ML VIAL ONE (21:52)
[2016-10-05] MEDS ORDERED: SODIUM CHLORIDE 0.9% 1,000 ML IV ONE (21:53)
[2016-10-05] MEDS ORDERED: HYDROmorphone 1 MG/ML SYRINGE IVP STA (22:57)
[2016-10-05] MEDS ORDERED: oxyCODONE/ACET 5/325 Prepack 4 PO STA (22:57)
[2016-10-05] MEDS ORDERED: oxyCODONE/ACET 5/325 Prepack 4 PO ONE (22:59)
[2016-10-05] MEDS ORDERED: HYDROmorphone 1 MG/ML SYRINGE ONE (22:59)
== END 2016-10-05 23:35 | disposition home or self-care (01) ==
DX: R10.84 Generalized abdominal pain (principal); E11.9 Type 2 diabetes mellitus without complications; Z79.4 Long term (current) use of insulin; Z79.82 Long term (current) use of aspirin
CPT/HCPCS: 36415; 80053; 81003; 83690; 85025; 96361; 96374; 96375; 99284; A9270; J1170

== ENCOUNTER 2016-10-11 20:41 | Outpatient (CLI) | payer MEDICAID | END 2016-10-11 20:42 | disposition critical access hospital (66) | LOC: EMS 20:41 | PROVIDERS: ATTEND Surgery | DX: R10.9 Unspecified abdominal pain (principal) | CPT/HCPCS: A0425; A0427 ==

== ENCOUNTER 2016-10-11 21:04 | Inpatient (IN) | payer MEDICAID ==
--- NOTE | 2016-10-11 21:32 | ED Physician Documentation ---
PD HPI ABD PAIN - Stated complaint Stated Complaint: ABD PAIN - Chief complaint Chief Complaint: Abd Pain - History obtained from History obtained from: Patient - History of Present Illness Timing - onset: Today Timing - duration: Hours (4) Timing - details: Gradual onset Pain level max: 10 Pain level now: 10 Quality: Aching, Pain Location: All over / everywhere Improved by: Vomiting Worsened by: Eating Associated symptoms: Nausea, Vomiting. No: Fever Similar symptoms before: Diagnosis (abdominal pain, pancreatitis) Recently seen: Other (discharged from [facility] on 10/10/16. Dx with pancreatitis at that time. Normal CT and normal labs prior to d/c.) - Additional information Additional information: started after eating several cheeseburgers today Review of Systems Ten Systems: 10 systems reviewed and negative Constitutional: denies: Fever, Chills Respiratory: denies: Cough GI: denies: Diarrhea, Hematemesis, Bloody / black stool Skin: denies: Rash Musculoskeletal: denies: Neck pain, Back pain Neurologic: denies: Focal weakness, Numbness, Headache PD PAST MEDICAL HISTORY - Past Medical History Cardiovascular: High cholesterol Endocrine/Autoimmune: Type 2 diabetes Psych: Depression, Bipolar disorder Musculoskeletal: Chronic back pain - Past Surgical History Past Surgical History: Yes General: Appendectomy - Present Medications Home Medications: Ambulatory Orders Medication Instructions Recorded Confirmed Atorvastatin [Lipitor] 10 mg PO DAILY 08/18/16 10/11/16 Cephalexin [Keflex] 500 mg PO Q6H #28 capsule 08/18/16 09/23/16 Cyclobenzaprine [Flexeril] 10 mg PO PRN PRN 08/18/16 10/11/16 Gabapentin 300 mg PO PRN PRN 08/18/16 10/11/16 Insulin Aspart [NovoLOG] 10 units SQ TID 08/18/16 10/11/16 Lisinopril 5 mg PO DAILY 08/18/16 10/11/16 Mupirocin Calcium [Bactroban] 1 applic TP BID #15 g 08/18/16 09/23/16 Sitagliptin Phosphate [Januvia] 25 mg PO DAILY 08/18/16 09/23/16 Blood-Glucose Meter [Glucometer] 1 each MC ONCE #1 each 09/18/16 09/23/16 HYDROcod/ACETAM 5/325 [[place] 5/325] 1 - 2 ea PO Q6H PRN #15 tablet 09/18/1601/18 Insulin Glargine [Lantus] 25 unit SQ QPM 30 Days 09/18/16 10/11/16 rifAXIMin [Xifaxan] 550 mg PO BID 14 Days 09/18/16 10/11/16 Ciprofloxacin HCl [Cipro] 500 mg PO BID #14 tablet 09/22/16 09/23/16 Metronidazole [Flagyl] 500 mg PO TID #20 tablet 09/22/16 09/23/16 SITagliptin [Januvia] 100 mg PO DAILY 09/22/16 09/23/16 Sumatriptan Succinate 25 mg PO DAILY 09/22/16 09/23/16 Hyoscyamine Sulfate [Levsin-Sl] 0.125 mg SL Q4HR PRN #30 tab.subl 09/23/16 - Allergies Allergies/Adverse Reactions: Allergies Allergy/AdvReac Type Severity Reaction Status Date / Time cinnamon Allergy Unknown Verified 10/05/16 20:53 pregabalin [From Lyrica] Allergy Unknown Verified 10/05/16 20:53 - Social History Does the pt smoke?: No Smoking Status: Never smoker Does the pt drink ETOH?: No Does the pt have substance abuse?: Yes - Immunizations Immunizations are current?: Yes PD ED PE NORMAL - Vitals Vital signs reviewed: Yes - General General: Alert and oriented X 3, Other (appears uncomfortable) - HEENT HEENT: PERRL, Moist mucous membranes, Pharynx benign - Neck Neck: Supple, no meningeal sign - Cardiac Cardiac: RRR, Strong equal pulses - Respiratory Respiratory: No respiratory distress, Clear bilaterally - Abdomen Abdomen: Soft, Other (diffusely TTP. no peritoneal signs) - Back Back: No CVA TTP, No spinal TTP - Derm Derm: Warm and dry - Extremities Extremities: No edema, No calf tenderness / cord - Neuro Neuro: Alert and oriented X 3 - Psych Psych: Normal mood, Normal affect Results - Vitals Vitals: Vital Signs - 24 hr 10/11/16 10/11/16 10/11/16 21:06 21:08 22:40 Temperature 37.2 C Heart Rate 77 78 Respiratory 18 20 Rate Blood Pressure 165/110 H 144/85 H O2 Saturation 99 95 Oxygen O2 Source Room air - Labs Labs: Laboratory Tests 10/11/16 10/11/16 10/11/16 21:35 21:35 21:35 WBC 6.2 RBC 4.38 L Hgb 13.4 L Hct 40.3 L MCV 92.2 MCH 30.7 MCHC 33.3 RDW 13.8 Plt Count 145 MPV 10.1 Neut # 3.2 Lymph # 1.8 [place] # 0.8 Eos # 0.2 Baso # 0.1 Absolute Nucleated RBC 0.00 Nucleated RBCs 0.0 Sodium 140 Potassium 3.4 L Chloride 103 Carbon Dioxide 30 Anion Gap 7.0 BUN 7 Creatinine 0.6 Estimated GFR (MDRD) 141 Glucose 199 H Glycated Hemoglobin Estim Average Glucose Calcium 8.9 Total Bilirubin 0.4 AST 20 ALT 30 Alkaline Phosphatase 61 Total Protein 6.9 Albumin 4.0 Globulin 2.9 Albumin/Globulin Ratio 1.4 Amylase 25 L Lipase 18 L Urine Color Urine Clarity Urine pH Ur Specific [place] Urine Protein Urine Glucose (UA) Urine Ketones Urine Occult Blood Urine Nitrite Urine Bilirubin Urine Urobilinogen Ur Leukocyte Esterase Ur Microscopic Review Urine Culture Comments Urine Opiates Screen Ur Oxycodone Screen Urine Methadone Screen Ur Propoxyphene Screen Ur Barbiturates Screen Ur Tricyclics Screen Ur Phencyclidine Scrn Ur Amphetamine Screen U Methamphetamines Scrn U Benzodiazepines Scrn Urine Cocaine Screen U Cannabinoids Screen H. pylori IgG Antibody Negative 10/11/16 10/11/16 10/11/16 21:35 22:13 23:13 WBC RBC Hgb Hct MCV MCH MCHC RDW Plt Count MPV Neut # Lymph # [place] # Eos # Baso # Absolute Nucleated RBC Nucleated RBCs Sodium Potassium Chloride Carbon Dioxide Anion Gap BUN Creatinine Estimated GFR (MDRD) Glucose Glycated Hemoglobin 11.4 H Estim Average Glucose 280 H Calcium Total Bilirubin AST ALT Alkaline Phosphatase Total Protein Albumin Globulin Albumin/Globulin Ratio Amylase Lipase Urine Color YELLOW Urine Clarity CLEAR Urine pH 7.0 Ur Specific [place] 1.010 Urine Protein NEGATIVE Urine Glucose (UA) 100 H Urine Ketones NEGATIVE Urine Occult Blood NEGATIVE Urine Nitrite NEGATIVE Urine Bilirubin NEGATIVE Urine Urobilinogen 0.2 (NORMAL) Ur Leukocyte Esterase NEGATIVE Ur Microscopic Review NOT INDICATED Urine Culture Comments NOT INDICATED Urine Opiates Screen POSITIVE H Ur Oxycodone Screen POSITIVE H Urine Methadone Screen NEGATIVE Ur Propoxyphene Screen NEGATIVE Ur Barbiturates Screen NEGATIVE Ur Tricyclics Screen NEGATIVE Ur Phencyclidine Scrn NEGATIVE Ur Amphetamine Screen NEGATIVE U Methamphetamines Scrn NEGATIVE U Benzodiazepines Scrn NEGATIVE Urine Cocaine Screen NEGATIVE U Cannabinoids Screen POSITIVE H H. pylori IgG Antibody PD MEDICAL DECISION MAKING - ED course Complexity details: reviewed old records, reviewed results, re-evaluated patient , considered differential, d/w patient, d/w family ED course: Patient is a 51-year-old gentleman who presents to the emergency department with intermittent abdominal pain for the past several months. Family states that this did not occur before moved to [place] 2 months ago. He was recently admitted to [facility] for pancreatitis, lipase never went above 2 times the upper limit of normal. Pain resolved with n.p.o. status. Pain did not change with Dilaudid, Ativan, morphine or haloperidol. Patient asked if he can be kept n.p.o. overnight and see if his pain improves. Discussed the case with Dr. Bose, hospitalist who accepts for observation. Patient is well- appearing, nontoxic. Afebrile. This document was made in part using voice recognition software. While efforts are made to proofread this document, sound alike and grammatical errors may occur. Departure - Departure Disposition: ED Place in Observation Clinical Impression: Hyperglycemia Abdominal pain Qualifiers: Abdominal location: generalized Qualified Code(s): R10.84 - Generalized abdominal pain Condition: Good Discharge Date/Time: 10/12/16 00:10
[2016-10-11 21:45] LABS: BASOPHILS # (AUTO) 0.1 10^3/uL (0.0-0.1); BASOPHILS % (AUTO) 1.3 %; EOSINOPHILS # (AUTO) 0.2 10^3/uL (0.0-0.7); EOSINOPHILS % (AUTO) 3.5 %; HCT - HEMATOCRIT 40.3 % (42.0-52.0); HGB - HEMOGLOBIN 13.4 g/dL (14.0-18.0); LYMPHOCYTES # (AUTO) 1.8 10^3/uL (1.5-3.5); LYMPHOCYTES % (AUTO) 29.2 %; MEAN CORPUSCULAR HEMOGLOBIN 30.7 pg (27.0-31.0); MEAN CORPUSCULAR HGB CONC 33.3 g/dL (32.0-36.0); MEAN CORPUSCULAR VOLUME 92.2 fL (80.0-94.0); MEAN PLATELET VOLUME 10.1 fL (7.4-11.4); MONOCYTES # (AUTO) 0.8 10^3/uL (0.0-1.0); MONOCYTES % (AUTO) 13.5 %; NEUTROPHILS # (AUTO) 3.2 10^3/uL (1.5-6.6); NEUTROPHILS % (AUTO) 52.5 %; RED BLOOD COUNT 4.38 10^6/uL (4.70-6.10); RED CELL DISTRIBUTION WIDTH 13.8 % (12.0-15.0); UNCORRECTED WHITE BLOOD COUNT 6.2 x10^3/uL; WHITE BLOOD COUNT 6.2 x10^3/uL (4.8-10.8)
[2016-10-11 21:57] LABS: ALBUMIN/GLOBULIN RATIO 1.4 (1.0-2.2); BILIRUBIN,TOTAL 0.4 mg/dL (0.2-1.0); CALCIUM 8.9 mg/dL (8.5-10.3); CREATININE 0.6 mg/dL (0.6-1.2); POTASSIUM 3.4 mmol/L (3.5-5.0); TOTAL PROTEIN 6.9 g/dL (6.7-8.2)
[2016-10-11] MEDS ORDERED: HYDROmorphone 1 MG/ML SYRINGE IVP STA (22:05)
[2016-10-11] MEDS ORDERED: LORazepam 2 MG/ML SYRINGE IVP STA (22:05)
[2016-10-11] MEDS ORDERED: HYDROmorphone 1 MG/ML SYRINGE ONE (22:07)
[2016-10-11] MEDS ORDERED: LORazepam 2 MG/ML SYRINGE ONE (22:08)
[2016-10-11 22:22] LABS: BILIRUBIN,URINE NEGATIVE (NEGATIVE)
[2016-10-11 22:24] LABS: UA CHARGE (STRIP ONLY) YES; UR CULTURE IF IND NOT INDICATED
[2016-10-11] MEDS ORDERED: HALOPERIDOL 5 MG/ML VIAL IVP STA (22:31)
[2016-10-11] MEDS ORDERED: SUCRALFATE 1 GM/10 ML UDC PO STA (22:31)
[2016-10-11] MEDS ORDERED: MAG HYDROX/AL HYDROX/SIMETH 30 ML UDC PO STA (22:31)
[2016-10-11] MEDS ORDERED: PHENobarb/HYOSCY/ATROPINE/SCOP 5 ML SYRINGE PO STA (22:31)
[2016-10-11] MEDS ORDERED: LIDOCAINE VISCOUS 2% 15 ML UDC MM STA (22:31)
[2016-10-11] MEDS ORDERED: PHENobarb/HYOSCY/ATROPINE/SCOP 5 ML SYRINGE PO ONE (22:32)
[2016-10-11] MEDS ORDERED: LIDOCAINE VISCOUS 2% 15 ML UDC MM ONE (22:32)
[2016-10-11] MEDS ORDERED: HALOPERIDOL 5 MG/ML VIAL ONE (22:33)
[2016-10-11] MEDS ORDERED: MAG HYDROX/AL HYDROX/SIMETH 30 ML UDC ONE (22:33)
[2016-10-11] MEDS ORDERED: SUCRALFATE 1 GM/10 ML UDC ONE (22:33)
[2016-10-11] MEDS ORDERED: SODIUM CHLORIDE 0.9% 1,000 ML IV ONE (23:06)
[2016-10-11 23:27] LABS: H. PYLORI IGG ANTIBODY Negative (Negative); HPYLORI NEG QC Negative (Negative); HPYLORI POS QC POSITIVE (Positive)
[2016-10-11] MEDS ORDERED: ONDANSETRON 4 MG/2 ML VIAL IVP PRN (23:31)
[2016-10-12] MEDS: SODIUM CHLORIDE 0.9% 1,000 ML IV SCH ×3 (00:47→19:02)
[2016-10-12 00:51] LABS: HEMOGLOBIN A1C 1.43 g/dL
[2016-10-12] MEDS: FAMOTIDINE 20 MG/50 ML 50 ML IV SCH ×3 (00:52→23:05)
[2016-10-12] MEDS: SODIUM CHLORIDE FLUSH 0.9% 10 ML SYRINGE IVP SCH ×3 (04:39→23:05)
[2016-10-12] MEDS: METOCLOPRAMIDE 10 MG/2 ML VIAL IVP PRN (06:38)
--- NOTE | 2016-10-12 07:53 | HISTORY & PHYSICAL EXAMINATION ---
DATE OF ADMISSION: 10/11/2016 PRIMARY CARE PROVIDER: Dr. Aydin Lopez, [facility]. CHIEF COMPLAINT: Abdominal pain. HISTORY OF PRESENT ILLNESS: This is a 51-year-old male who over the past several weeks has been havi ng abdominal pain. He was recently hospitalized at [facility] for several days, discharged yeste rday. He did have mild elevation in lipase but had other normal white count, normal liver chemistrie s; had ultrasound, CT scan which did not show any abnormalities. He also had a surgical consult done while in the hospital. He did get slightly better and was discharged on clear liquid diet but jonnie ently had 2 large burgers today and now has again diffuse abdominal pain with some nausea, no vomitin g. He did admit to some loose stool intermittently since having problems with this abdominal pain. Amira khan also does have type 2 diabetes and is on insulin for control. He also has a history of chronic get n per note from [facility]. Also per patient report, he has no history of GI issues. PAST MEDICAL HISTORY 1. Type 2 diabetes on insulin; has peripheral neuropathy. 2. Chronic back pain. 3. History of cervical fusion. 4. Status post appendectomy. ALLERGIES: LYRICA. MEDICATIONS UPON ADMISSION 1. Lipitor 10 mg p.o. daily. 2. Cyclobenzaprine 10 mg p.o. t.i.d. p.r.n. 3. Gabapentin 300 mg p.o. p.r.n. 4. Vicodin 5/325 p.r.n. 5. Insulin 10 units subcu t.i.d. of Novolog and glargine 25 units subcu at p.m. 6. Lisinopril 5 mg p.o. daily. 7. Januvia 100 mg p.o. daily. 8. Rifaximin 550 mg p.o. b.i.d. SOCIAL HISTORY: Recently moved here from [place]. Smoking: Some several days per week. Alcohol: Non e. Denies any other drug use. FAMILY MEDICAL HISTORY: No history of any GI issues. REVIEW OF SYSTEMS: Denies any fever or chills. All other review of systems reviewed and are negativ e except as in HPI. PHYSICAL EXAMINATION VITAL SIGNS: Temperature is afebrile, heart rate 78, blood pressure 144/85, respiratory rate 20, sophia m air sat 95%. CONSTITUTIONAL: A middle-aged male who appears in pain, distress. HEENT: Head normocephalic, atraumatic. Mouth: Poor dentition. NECK: No adenopathy. CHEST: Clear to auscultation. COR: Regular rate and rhythm. S1, S2. ABDOMEN: Diffusely tender. No rebound, no guarding. Bowel sounds present. EXTREMITIES: Exam reveals no pedal edema. SKIN: Rash, which is resolving from the bedding at [facility]. It is in the lower bilateral rikki k area. PSYCHOLOGIC: Somewhat anxious. NEUROLOGIC: Alert and oriented x3, motor strength is intact bilaterally. LABORATORY White count 6.2, hematocrit 40.3, MCV 92.2, platelets 145 with 3.2 polys. Sodium 140, potassium 3.4, chloride 103, bicarb 30, BUN 7, creatinine 0.6, calculated GFR 141, glucos e 199, calcium 8.9, total bilirubin 0.4, AST 20, ALT 30, alkaline phosphatase 61, total protein 6.9, albumin 4.0, amylase 25, lipase 18. Urine is negative except for a glucose of 100. H pylori IgG antibody is negative. ASSESSMENT AND PLAN 1. Recurrent abdominal pain. Patient notes that he wanted to be admitted for IV fluids n.p.o., see if it did not get better, and that was the plan per Dr. Winston, ER physician; also Dr. Winston reviewe d with him that he will not be getting any more narcotics, as it does not seem to be helping his pain . We will go ahead and start IV Reglan p.r.n., Levsin sublingual p.r.n. We will also check stool st udies, as he did have some loose stool. 2. Type 2 diabetes, chronic. Because he is going to be eating, ingesting less, I did put him on a c lear liquid diet, we will go ahead and give him half of his usual Lantus dosing and follow q.i.d. blo od sugars. 3. Deep venous thrombosis prophylaxis. We will go ahead and use SCDs. 4. Code status: Patient is FULL CODE. Time spent 60 minutes. JOB #: [id number] EXT JOB #:[id number]
[2016-10-12] MEDS: HYOSCYAMINE SL 0.125 MG TABLET SL SCH ×3 (08:14→16:31)
[2016-10-12] MEDS: INSULIN ASPART 300 UNIT/3 ML PEN SUBQ SCH ×4 (08:14→22:12)
[2016-10-12] MEDS: POLYETHYLENE GLYCOL 3350 17 GM PACKET PO SCH (08:16)
[2016-10-12] MEDS: MORPHINE 2 MG/ML SYRINGE IVP PRN ×5 (08:47→19:02)
[2016-10-12] MEDS: SODIUM CHLORIDE FLUSH 0.9% 10 ML SYRINGE IVP PRN ×4 (08:47→19:03)
[2016-10-12] MEDS ORDERED: HYDROCORTISONE 1% CREAM 28 GM TUBE TOP SCH (16:30)
[2016-10-12 18:30] LABS: BILIRUBIN,URINE NEGATIVE (NEGATIVE); PH,URINE 6.5 PH (5.0-7.5)
[2016-10-12 18:31] LABS: UA CHARGE (STRIP ONLY) YES; UR CULTURE IF IND NOT INDICATED
--- NOTE | 2016-10-12 18:56 | PROVIDER PROGRESS NOTE ---
Assessment/Plan - Problem List (1) Abdominal pain Qualifiers: Abdominal location: generalized Qualified Code(s): R10.84 - Generalized abdominal pain Assessment/Plan: Unspecified abdominal pain with nausea, vomiting and diarrhea Possible etiology is gastroparesis secondary to poorly controlled dm, mesenteric ischemia, ulcer, gastritis, gastroenteritis Diffuse but more so in the flanks not really localized Abd is soft with mild tenderness Patient had pancreatitis at [facility] 1 week ago and underwent 2 CT scans both negative Pain is disproportionate to exam therefore will order CTA of the abd/pelvis IV pain meds for pain control IVFs Patient better able to tolerate PO intake today May need EGD/Colonscopy if CTA negative Stool cx negative (2) Diabetes Qualifiers: Diabetes mellitus type: type 2 Assessment/Plan: Very poorly controlled HbA1C is 11.4 Lantus 10 units subQ Novolog SS TID DM diet Monitor glucose (3) Hypertension Qualifiers: Hypertension type: essential hypertension Qualified Code(s): I10 - Essential (primary) hypertension Assessment/Plan: Continue lisinopril Monitor BP (4) Prophylactic use of low molecular weight heparin for venous thromboembolism Assessment/Plan: On lovenox - Current Meds Current Meds: Current Medications Generic Name Dose Route Start Last Admin Trade Name Freq PRN Reason Stop Dose Admin Hyoscyamine 0.125 mg 10/12/16 07:00 10/12/16 16:31 Levsin SL 0.125 mg AC ESTHER Administration Sodium Chloride 1,000 mls @ 100 mls/hr 10/11/16 23:45 10/12/16 08:46 Normal Saline 0.9% IV 100 mls/hr .Q10H ESTHER Administration Famotidine 50 mls @ 100 mls/hr 10/11/16 23:45 10/12/16 08:15 Pepcid 20 Mg/50 Ml IV 100 mls/hr BID ESTHER Administration Insulin Aspart 1 - 9 unit 10/12/16 08:00 10/12/16 18:29 Novolog SUBQ Not Given 0800,1200,1700,2100 ESTHER Protocol Metoclopramide HCl 5 mg 10/11/16 23:34 10/12/16 06:38 Reglan Inj IVP 5 mg Q6HR PRN Administration Abdominal Pain Morphine Sulfate 2 mg 10/12/16 08:36 10/12/16 16:38 Morphine IVP 2 mg Q2HR PRN Administration PAIN Polyethylene Glycol 17 gm 10/12/16 09:00 10/12/16 08:16 Miralax PO 17 gm DAILY ESTHER Administration Sodium Chloride 10 ml 10/11/16 23:31 10/12/16 13:37 Normal Saline Flush 0.9% IVP 10 ml PRN PRN Administration NEEDED PER PROVIDER ORDERS Sodium Chloride 10 ml 10/12/16 06:00 10/12/16 13:37 Normal Saline Flush 0.9% IVP 10 ml Q8HR ESTHER Administration - Lab Result Lab results reviewed: Yes Fish Bone Diagrams: 10/11/16 21:35 10/11/16 21:35 - EKG Results EKG Interpreted Independently: Yes - Diagnostic Imaging Results Diagnostic Imaging Results: Final report reviewed - Additional Planning Condition/Complexity: Guarded My Orders: My Active Orders 10/12/16 Abdomen/Pelvis Angio [CT] Routine 10/12/16 08:36 Morphine Inj [Morphine] 2 mg IVP Q2HR PRN 10/12/16 21:00 Hydrocortisone 1% Oint [Hydrocortisone] 1 applic TOP BID Plan Discussed with:: Patient, Family Time Spent: 31-60 minutes Subjective - Subjective Patient Reports: Abdominal Pain (Worse this morning), Diarrhea, Nausea, Pain, Other (No fevers) Nursing Reports: No Complaints Objective Vital Signs: Vital Signs - 24 hr 10/12/16 10/12/16 10/12/16 06:28 08:18 11:29 Temperature 36.7 C 36.6 C 36.8 C Heart Rate [ 57 L 55 L 57 L Brachial] Respiratory 16 16 16 Rate Blood Pressure 107/69 151/89 H 124/77 [Left Brachial artery] O2 Saturation 97 97 95 10/12/16 15:30 Temperature 36.9 C Heart Rate [ 64 Brachial] Respiratory 18 Rate Blood Pressure 146/94 H [Left Brachial artery] O2 Saturation 98 Oxygen O2 Source Room air I&O (Last 24 Hrs): Intake and Output Totals x24h 10/10/16 10/11/16 10/12/16 23:59 23:59 23:59 Intake Total 2203 Output Total 1000 Balance 1203 General: Alert, Oriented x3, Cooperative, Mild distress (abd pain) HEENT: Atraumatic, PERRLA, EOMI, Mucous membr. moist/pink Neck: Supple, No JVD, No thyromegaly, +2 carotid pulse wo bruit, No LAD Lymphatic: no adenopathy Neuro: Alert, Non Focal, CN 2-12 Grossly Intact, Oriented Times 3 Cardiovascular: Regular rate, Normal S1, Normal S2, No murmurs Respiratory: Chest non-tender, No respiratory distress, Breath sounds nml Abdomen: Normal bowel sounds, Soft, No hepatospenomegaly, Other (Tenderness diffuse, no rebound or guarding) Extremities: No clubbing, No cyanosis, No edema, Normal pulses, No tenderness/ swelling Skin: No rashes, No breakdown - Results Results: Laboratory Results WBC 6.2 x10^3/uL (4.8-10.8) 10/11/16 21:35 RBC 4.38 10^6/uL (4.70-6.10) L 10/11/16 21:35 Hgb 13.4 g/dL (14.0-18.0) L 10/11/16 21:35 Hct 40.3 % (42.0-52.0) L 10/11/16 21:35 MCV 92.2 fL (80.0-94.0) 10/11/16 21:35 MCH 30.7 pg (27.0-31.0) 10/11/16 21:35 MCHC 33.3 g/dL (32.0-36.0) 10/11/16 21:35 RDW 13.8 % (12.0-15.0) 10/11/16 21:35 Plt Count 145 10^3/uL (130-450) 10/11/16 21:35 MPV 10.1 fL (7.4-11.4) 10/11/16 21:35 Neut # 3.2 10^3/uL (1.5-6.6) 10/11/16 21:35 Lymph # 1.8 10^3/uL (1.5-3.5) 10/11/16 21:35 [place] # 0.8 10^3/uL (0.0-1.0) 10/11/16 21:35 Eos # 0.2 10^3/uL (0.0-0.7) 10/11/16 21:35 Baso # 0.1 10^3/uL (0.0-0.1) 10/11/16 21:35 Absolute Nucleated RBC 0.00 x10^3/uL 10/11/16 21:35 Nucleated RBCs 0.0 /100WBC 10/11/16 21:35 Sodium 140 mmol/L (135-145) 10/11/16 21:35 Potassium 3.4 mmol/L (3.5-5.0) L 10/11/16 21:35 Chloride 103 mmol/L (101-111) 10/11/16 21:35 Carbon Dioxide 30 mmol/L (21-32) 10/11/16 21:35 Anion Gap 7.0 (6-13) 10/11/16 21:35 BUN 7 mg/dL (6-20) 10/11/16 21:35 Creatinine 0.6 mg/dL (0.6-1.2) 10/11/16 21:35 Estimated GFR (MDRD) 141 (>89) 10/11/16 21:35 Glucose 199 mg/dL (70-100) H 10/11/16 21:35 Glycated Hemoglobin 11.4 % (4.6-6.2) H 10/11/16 21:35 Estim Average Glucose 280 (70-100) H 10/11/16 21:35 Calcium 8.9 mg/dL (8.5-10.3) 10/11/16 21:35 Total Bilirubin 0.4 mg/dL (0.2-1.0) 10/11/16 21:35 AST 20 IU/L (10-42) 10/11/16 21:35 ALT 30 IU/L (10-60) 10/11/16 21:35 Alkaline Phosphatase 61 IU/L (42-121) 10/11/16 21:35 Total Protein 6.9 g/dL (6.7-8.2) 10/11/16 21:35 Albumin 4.0 g/dL (3.2-5.5) 10/11/16 21:35 Globulin 2.9 g/dL (2.1-4.2) 10/11/16 21:35 Albumin/Globulin Ratio 1.4 (1.0-2.2) 10/11/16 21:35 Amylase 25 U/L (28-100) L 10/11/16 21:35 Lipase 18 U/L (22-51) L 10/11/16 21:35 Urine Color YELLOW 10/12/16 18:20 Urine Clarity CLEAR (CLEAR) 10/12/16 18:20 Urine pH 6.5 PH (5.0-7.5) 10/12/16 18:20 Ur Specific [place] 1.010 (1.002-1.030) 10/12/16 18:20 Urine Protein NEGATIVE mg/dL (NEGATIVE) 10/12/16 18:20 Urine Glucose (UA) NEGATIVE mg/dL (NEGATIVE) 10/12/16 18:20 Urine Ketones TRACE mg/dL (NEGATIVE) 10/12/16 18:20 Urine Occult Blood NEGATIVE (NEGATIVE) 10/12/16 18:20 Urine Nitrite NEGATIVE (NEGATIVE) 10/12/16 18:20 Urine Bilirubin NEGATIVE (NEGATIVE) 10/12/16 18:20 Urine Urobilinogen 0.2 (NORMAL) E.U./dL (NORMAL) 10/12/16 18:20 Ur Leukocyte Esterase NEGATIVE (NEGATIVE) 10/12/16 18:20 Ur Microscopic Review NOT INDICATED 10/12/16 18:20 Urine Culture Comments NOT INDICATED 10/12/16 18:20 Stool Leukocytes, Qual NEGATIVE (Negative) 10/11/16 09:30 Urine Opiates Screen POSITIVE (NEGATIVE) H 10/11/16 23:13 Ur Oxycodone Screen POSITIVE (NEGATIVE) H 10/11/16 23:13 Urine Methadone Screen NEGATIVE (NEGATIVE) 10/11/16 23:13 Ur Propoxyphene Screen NEGATIVE (NEGATIVE) 10/11/16 23:13 Ur Barbiturates Screen NEGATIVE (NEGATIVE) 10/11/16 23:13 Ur Tricyclics Screen NEGATIVE (NEGATIVE) 10/11/16 23:13 Ur Phencyclidine Scrn NEGATIVE (NEGATIVE) 10/11/16 23:13 Ur Amphetamine Screen NEGATIVE (NEGATIVE) 10/11/16 23:13 U Methamphetamines Scrn NEGATIVE (NEGATIVE) 10/11/16 23:13 U Benzodiazepines Scrn NEGATIVE (NEGATIVE) 10/11/16 23:13 Urine Cocaine Screen NEGATIVE (NEGATIVE) 10/11/16 23:13 U Cannabinoids Screen POSITIVE (NEGATIVE) H 10/11/16 23:13 H. pylori IgG Antibody Negative (Negative) 10/11/16 21:35
[2016-10-12] MEDS ORDERED: IOPAMIDOL-300 100 ML VIAL IVP ONE (19:46)
--- NOTE | 2016-10-12 21:03 | CT Preliminary Report ---
Exam: CT Abdomen/Pelvis Angio IMPRESSION: Normal abdomen and pelvis CT angiogram. No aneurysm or dissection. No urinary tract stone , hydronephrosis, or bowel obstruction. [facility] SITE ID: [id number]
--- NOTE | 2016-10-12 21:06 | CT Report ---
EXAM: CT ANGIOGRAM ABDOMEN AND PELVIS WITH CONTRAST EXAM DATE: 10/12/2016 07:47 PM. CLINICAL HISTORY: Abd pain out of proportion to exam. COMPARISONS: 09/22/2016. TECHNIQUE: Routine helical CT angiogram imaging was performed through the abdomen and pelvis in the a rterial phase. IV contrast: 100 cc Isovue-300. Enteric contrast: No. Reconstructions: Coronal, sagitt al, and 3D MIP reconstructions. In accordance with CT protocol optimization, one or more of the following dose reduction techniques w ere utilized for this exam: automated exposure control, adjustment of mA and/or KV based on patient s ize, or use of iterative reconstructive technique. FINDINGS: Vasculature: Normal. No aneurysm, dissection, or significant atherosclerotic disease of the abdominal aorta and iliac arteries. The visualized mesenteric and solid organ vascular structures are also wit hin normal limits. Lung Bases: Small blebs. No acute infiltrate, consolidation, effusion, or pneumothorax. Abdominal Solid Organs: Normal. The liver, spleen, pancreas, adrenal glands, gallbladder and kidneys are normal in size and demonstrate no masses or abnormal enhancement. Peritoneal Cavity: Normal. No free fluid, free air, or acute inflammatory process. Unremarkable regio n of appendix. Pelvic Organs: Normal. The bladder and visualized pelvic organs are within normal limits. Bones: No significant abnormality. Other: None. IMPRESSION: Normal abdomen and pelvis CT angiogram. No aneurysm or dissection. No urinary tract stone , hydronephrosis, or bowel obstruction. [facility] Referring Provider Line: [phone] SITE ID: [id number]
[2016-10-12] MEDS: HYDROCORTISONE 1% OINTMENT 28 GM TUBE TOP SCH (22:12)
[2016-10-12] MEDS: INSULIN GLARGINE 300 UNIT/3 ML PEN SUBQ SCH (22:12)
[2016-10-13] MEDS: SODIUM CHLORIDE FLUSH 0.9% 10 ML SYRINGE IVP SCH ×3 (06:09→20:38)
[2016-10-13] MEDS: MORPHINE 2 MG/ML SYRINGE IVP PRN ×5 (06:15→22:08)
[2016-10-13] MEDS: HYOSCYAMINE SL 0.125 MG TABLET SL SCH ×3 (06:15→16:42)
[2016-10-13] MEDS: SODIUM CHLORIDE 0.9% 1,000 ML IV SCH ×2 (06:15→16:44)
[2016-10-13] MEDS: INSULIN ASPART 300 UNIT/3 ML PEN SUBQ SCH ×4 (08:30→20:36)
[2016-10-13] MEDS: FAMOTIDINE 20 MG/50 ML 50 ML IV SCH ×2 (08:31→20:35)
[2016-10-13] MEDS: POLYETHYLENE GLYCOL 3350 17 GM PACKET PO SCH (08:31)
[2016-10-13] MEDS: HYDROCORTISONE 1% OINTMENT 28 GM TUBE TOP SCH ×2 (08:32→22:08)
[2016-10-13] MEDS: SODIUM CHLORIDE FLUSH 0.9% 10 ML SYRINGE IVP PRN ×2 (10:18→14:22)
[2016-10-13 11:07] LABS: BASOPHILS % (AUTO) 0.6 %; EOSINOPHILS # (AUTO) 0.2 10^3/uL (0.0-0.7); EOSINOPHILS % (AUTO) 3.8 %; HCT - HEMATOCRIT 41.9 % (42.0-52.0); LYMPHOCYTES # (AUTO) 1.4 10^3/uL (1.5-3.5); LYMPHOCYTES % (AUTO) 26.5 %; MEAN CORPUSCULAR HEMOGLOBIN 30.9 pg (27.0-31.0); MEAN CORPUSCULAR HGB CONC 33.5 g/dL (32.0-36.0); MEAN CORPUSCULAR VOLUME 92.4 fL (80.0-94.0); MEAN PLATELET VOLUME 10.4 fL (7.4-11.4); MONOCYTES # (AUTO) 0.8 10^3/uL (0.0-1.0); NEUTROPHILS # (AUTO) 2.8 10^3/uL (1.5-6.6); NEUTROPHILS % (AUTO) 53.1 %; RED BLOOD COUNT 4.53 10^6/uL (4.70-6.10); RED CELL DISTRIBUTION WIDTH 13.5 % (12.0-15.0); UNCORRECTED WHITE BLOOD COUNT 5.2 x10^3/uL; WHITE BLOOD COUNT 5.2 x10^3/uL (4.8-10.8)
[2016-10-13 11:21] LABS: ALBUMIN/GLOBULIN RATIO 1.5 (1.0-2.2); BILIRUBIN,TOTAL 0.6 mg/dL (0.2-1.0); BUN - BLOOD UREA NITROGEN < 5 mg/dL (6-20); CALCIUM 8.6 mg/dL (8.5-10.3); CARBON DIOXIDE - CO2 29 mmol/L (21-32); CHLORIDE 104 mmol/L (101-111); CREATININE 0.6 mg/dL (0.6-1.2); GFR - MDRD 141 (>89); GLUCOSE 184 mg/dL (70-100); MAGNESIUM 1.9 mg/dL (1.7-2.8); PHOSPHORUS 2.9 mg/dL (2.5-4.6); POTASSIUM 3.5 mmol/L (3.5-5.0); SODIUM 140 mmol/L (135-145)
--- NOTE | 2016-10-13 17:11 | PROVIDER PROGRESS NOTE ---
Assessment/Plan - Problem List (1) Abdominal pain Qualifiers: Abdominal location: generalized Qualified Code(s): R10.84 - Generalized abdominal pain Assessment/Plan: Unspecified abdominal pain with nausea, vomiting and diarrhea Possible etiology is gastroparesis secondary to poorly controlled dm, mesenteric ischemia, ulcer, gastritis, gastroenteritis, cannabis induced cyclic vomiting, SBO, mass, IBD, IBS or psychosomatic pain Diffuse but more so in the flanks not really localized Abd is soft with diffuse severe tenderness on exam Stool occult blood negative Patient had pancreatitis at [facility] 1 week ago and underwent 2 CT scans both negative CTA negative for ischemia or aneurysms IV pain meds for pain control IVFs Stool cx negative Improved nausea but pain persistent Surgery consulted will do EGD and colonoscopy tomorrow NPO after midnight SuPrep tonight (2) Diabetes Qualifiers: Diabetes mellitus type: type 2 Assessment/Plan: HbA1C is 11.4 Lantus 10 units subQ Novolog SS TID DM diet Blood sugars are very well controlled in the hospital Monitor glucose (3) Hypertension Qualifiers: Hypertension type: essential hypertension Qualified Code(s): I10 - Essential (primary) hypertension Assessment/Plan: Continue lisinopril Controlled Monitor BP (4) Prophylactic use of low molecular weight heparin for venous thromboembolism Assessment/Plan: On lovenox - Current Meds Current Meds: Current Medications Generic Name Dose Route Start Last Admin Trade Name Freq PRN Reason Stop Dose Admin Hydrocortisone 1 applic 10/12/16 21:00 10/13/16 08:32 Hydrocortisone TOP 1 applic BID ESTHER Administration Hyoscyamine 0.125 mg 10/12/16 07:00 10/13/16 16:42 Levsin SL 0.125 mg AC ESTHER Administration Sodium Chloride 1,000 mls @ 100 mls/hr 10/11/16 23:45 10/13/16 16:44 Normal Saline 0.9% IV 100 mls/hr .Q10H ESTHER Administration Famotidine 50 mls @ 100 mls/hr 10/11/16 23:45 10/13/16 08:31 Pepcid 20 Mg/50 Ml IV 100 mls/hr BID ESTHER Administration Insulin Aspart 1 - 9 unit 10/12/16 08:00 10/13/16 16:43 Novolog SUBQ Not Given 0800,1200,1700,2100 [facility] Protocol Insulin Glargine 10 unit 10/12/16 21:00 10/12/16 22:12 Lancindy Verdinostar SUBQ 10 unit QPM ESTHER Administration Metoclopramide HCl 5 mg 10/11/16 23:34 10/12/16 06:38 Reglan Inj IVP 5 mg Q6HR PRN Administration Abdominal Pain Morphine Sulfate 2 mg 10/12/16 08:36 10/13/16 16:44 Morphine IVP 2 mg Q2HR PRN Administration PAIN Polyethylene Glycol 17 gm 10/12/16 09:00 10/13/16 08:31 Miralax PO 17 gm DAILY ESTHER Administration Sodium Chloride 10 ml 10/11/16 23:31 10/13/16 14:22 Normal Saline Flush 0.9% IVP 10 ml PRN PRN Administration NEEDED PER PROVIDER ORDERS Sodium Chloride 10 ml 10/12/16 06:00 10/13/16 13:26 Normal Saline Flush 0.9% IVP Not Given Q8HR ESTHER - Lab Result Lab results reviewed: Yes Fish Bone Diagrams: 10/13/16 10:58 10/13/16 10:58 - EKG Results EKG Interpreted Independently: Yes - Diagnostic Imaging Results Diagnostic Imaging Results: Final report reviewed - Additional Planning Condition/Complexity: Guarded My Orders: My Active Orders 10/12/16 21:00 Hydrocortisone 1% Oint [Hydrocortisone] 1 applic TOP BID 10/13/16 General Surgery Consult [CONS] Routine FECAL LEUKOCYTES (EZ JUSTO) Urgent 10/13/16 18:00 Sodium/Potassium/Mag Sulfates [Suprep Bowel Prep Kit] 177 ml PO 1800,0500 10/14/16 00:01 NPO except Meds at Midnight [DIET] 10/14/16 05:00 CBC - COMP BLD CT W/AUTO DIFF [HEME] DAILYLAB CMP, RFLX TO IONIZED CA IF [CHEM] DAILYLAB MAGNESIUM [CHEM] DAILYLAB PHOSPHORUS [CHEM] DAILYLAB 10/15/16 05:00 CBC - COMP BLD CT W/AUTO DIFF [HEME] DAILYLAB CMP, RFLX TO IONIZED CA IF [CHEM] DAILYLAB MAGNESIUM [CHEM] DAILYLAB PHOSPHORUS [CHEM] DAILYLAB Consult/Specialty: Surgery Plan Discussed with:: Patient, Family Time Spent: 31-60 minutes Subjective - Subjective Patient Reports: Abdominal Pain (Patient states his pain continues to be 8-9/ 10. He states it is mostly in the flanks of his abdomen but moves across the midline in the lower abdomen. His nausea has improved and he is now tolerating a liquid diet. He denies any fevers or chills.), Diarrhea (Improved), Nausea ( Improved) Nursing Reports: No Complaints Objective Vital Signs: Vital Signs - 24 hr 10/12/16 10/12/16 10/13/16 19:15 23:52 04:04 Temperature 36.6 C 36.6 C 36.8 C Heart Rate [ 60 63 63 Brachial] Respiratory 18 16 16 Rate Blood Pressure 128/83 H 125/79 118/74 [Left Brachial artery] O2 Saturation 97 100 96 10/13/16 10/13/16 10/13/16 08:13 13:00 15:20 Temperature 36.7 C 36.8 C 36.8 C Heart Rate [ 70 71 62 Brachial] Respiratory 16 16 18 Rate Blood Pressure 136/87 H 139/75 H 149/95 H [Left Brachial artery] O2 Saturation 97 97 98 Oxygen O2 Source Room air I&O (Last 24 Hrs): Intake and Output Totals x24h 10/11/16 10/12/16 10/13/16 23:59 23:59 23:59 Intake Total 2823 3152 Output Total 1000 800 Balance 1823 2352 General: Alert, Oriented x3, Cooperative, Moderate distress (When examined he appears to have severe pain and is in distress with grimacing from pain but otherwise he is roaming the hallways and appears very comfortable.) HEENT: Atraumatic, PERRLA, EOMI, Mucous membr. moist/pink Neck: Supple, No JVD, No thyromegaly, +2 carotid pulse wo bruit, No LAD Lymphatic: no adenopathy Neuro: Alert, Non Focal, CN 2-12 Grossly Intact, Oriented Times 3 Cardiovascular: Regular rate, Normal S1, Normal S2, No murmurs Respiratory: Chest non-tender, No respiratory distress, Breath sounds nml Abdomen: Soft, Other (Severe, diffuse tenderness, no guarding, patient grimaces and screams when abdomen is palpated.) Extremities: No clubbing, No cyanosis, No edema, Normal pulses, No tenderness/ swelling Skin: No rashes, No breakdown - Results Results: Laboratory Results WBC 5.2 x10^3/uL (4.8-10.8) 10/13/16 10:58 RBC 4.53 10^6/uL (4.70-6.10) L 10/13/16 10:58 Hgb 14.0 g/dL (14.0-18.0) 10/13/16 10:58 Hct 41.9 % (42.0-52.0) L 10/13/16 10:58 MCV 92.4 fL (80.0-94.0) 10/13/16 10:58 MCH 30.9 pg (27.0-31.0) 10/13/16 10:58 MCHC 33.5 g/dL (32.0-36.0) 10/13/16 10:58 RDW 13.5 % (12.0-15.0) 10/13/16 10:58 Plt Count 146 10^3/uL (130-450) 10/13/16 10:58 MPV 10.4 fL (7.4-11.4) 10/13/16 10:58 Neut # 2.8 10^3/uL (1.5-6.6) 10/13/16 10:58 Lymph # 1.4 10^3/uL (1.5-3.5) L 10/13/16 10:58 [place] # 0.8 10^3/uL (0.0-1.0) 10/13/16 10:58 Eos # 0.2 10^3/uL (0.0-0.7) 10/13/16 10:58 Baso # 0.0 10^3/uL (0.0-0.1) 10/13/16 10:58 Absolute Nucleated RBC 0.00 x10^3/uL 10/13/16 10:58 Nucleated RBCs 0.0 /100WBC 10/13/16 10:58 ESR 5 mm/Hr (0-20) 10/13/16 10:58 Sodium 140 mmol/L (135-145) 10/13/16 10:58 Potassium 3.5 mmol/L (3.5-5.0) 10/13/16 10:58 Chloride 104 mmol/L (101-111) 10/13/16 10:58 Carbon Dioxide 29 mmol/L (21-32) 10/13/16 10:58 Anion Gap 7.0 (6-13) 10/13/16 10:58 BUN < 5 mg/dL (6-20) L 10/13/16 10:58 Creatinine 0.6 mg/dL (0.6-1.2) 10/13/16 10:58 Estimated GFR (MDRD) 141 (>89) 10/13/16 10:58 Glucose 184 mg/dL (70-100) H 10/13/16 10:58 Glycated Hemoglobin 11.4 % (4.6-6.2) H 10/11/16 21:35 Estim Average Glucose 280 (70-100) H 10/11/16 21:35 Calcium 8.6 mg/dL (8.5-10.3) 10/13/16 10:58 Ionized Calcium NO 10/13/16 10:58 Phosphorus 2.9 mg/dL (2.5-4.6) 10/13/16 10:58 Magnesium 1.9 mg/dL (1.7-2.8) 10/13/16 10:58 Total Bilirubin 0.6 mg/dL (0.2-1.0) 10/13/16 10:58 AST 33 IU/L (10-42) 10/13/16 10:58 ALT 38 IU/L (10-60) 10/13/16 10:58 Alkaline Phosphatase 68 IU/L (42-121) 10/13/16 10:58 Total Protein 7.0 g/dL (6.7-8.2) 10/13/16 10:58 Albumin 4.2 g/dL (3.2-5.5) 10/13/16 10:58 Globulin 2.8 g/dL (2.1-4.2) 10/13/16 10:58 Albumin/Globulin Ratio 1.5 (1.0-2.2) 10/13/16 10:58 Amylase 25 U/L (28-100) L 10/11/16 21:35 Lipase 18 U/L (22-51) L 10/11/16 21:35 Urine Color YELLOW 10/12/16 18:20 Urine Clarity CLEAR (CLEAR) 10/12/16 18:20 Urine pH 6.5 PH (5.0-7.5) 10/12/16 18:20 Ur Specific [place] 1.010 (1.002-1.030) 10/12/16 18:20 Urine Protein NEGATIVE mg/dL (NEGATIVE) 10/12/16 18:20 Urine Glucose (UA) NEGATIVE mg/dL (NEGATIVE) 10/12/16 18:20 Urine Ketones TRACE mg/dL (NEGATIVE) 10/12/16 18:20 Urine Occult Blood NEGATIVE (NEGATIVE) 10/12/16 18:20 Urine Nitrite NEGATIVE (NEGATIVE) 10/12/16 18:20 Urine Bilirubin NEGATIVE (NEGATIVE) 10/12/16 18:20 Urine Urobilinogen 0.2 (NORMAL) E.U./dL (NORMAL) 10/12/16 18:20 Ur Leukocyte Esterase NEGATIVE (NEGATIVE) 10/12/16 18:20 Ur Microscopic Review NOT INDICATED 10/12/16 18:20 Urine Culture Comments NOT INDICATED 10/12/16 18:20 Stool Leukocytes, Qual NEGATIVE (Negative) 10/11/16 09:30 Urine Opiates Screen POSITIVE (NEGATIVE) H 10/11/16 23:13 Ur Oxycodone Screen POSITIVE (NEGATIVE) H 10/11/16 23:13 Urine Methadone Screen NEGATIVE (NEGATIVE) 10/11/16 23:13 Ur Propoxyphene Screen NEGATIVE (NEGATIVE) 10/11/16 23:13 Ur Barbiturates Screen NEGATIVE (NEGATIVE) 10/11/16 23:13 Ur Tricyclics Screen NEGATIVE (NEGATIVE) 10/11/16 23:13 Ur Phencyclidine Scrn NEGATIVE (NEGATIVE) 10/11/16 23:13 Ur Amphetamine Screen NEGATIVE (NEGATIVE) 10/11/16 23:13 U Methamphetamines Scrn NEGATIVE (NEGATIVE) 10/11/16 23:13 U Benzodiazepines Scrn NEGATIVE (NEGATIVE) 10/11/16 23:13 Urine Cocaine Screen NEGATIVE (NEGATIVE) 10/11/16 23:13 U Cannabinoids Screen POSITIVE (NEGATIVE) H 10/11/16 23:13 H. pylori IgG Antibody Negative (Negative) 10/11/16 21:35
[2016-10-13] MEDS: SODIUM/POTASSIUM/MAG SULFATES 354 ML PREP KIT PO SCH (18:19)
[2016-10-13] MEDS: INSULIN GLARGINE 300 UNIT/3 ML PEN SUBQ SCH (20:36)
[2016-10-14] MEDS: ZOLPIDEM 5 MG TABLET PO PRN ×2 (00:14→23:42)
[2016-10-14] MEDS: MORPHINE 2 MG/ML SYRINGE IVP PRN ×6 (00:35→23:42)
[2016-10-14] MEDS: SODIUM CHLORIDE 0.9% 1,000 ML IV SCH ×3 (02:57→12:47)
--- NOTE | 2016-10-14 04:53 | CONSULTATION NOTE ---
DATE OF CONSULTATION: 10/13/2016 00:00:00 REFERRING PHYSICIAN: Dr. Yeh. REASON FOR REFERRAL: Abdominal pain. HISTORY OF PRESENT ILLNESS: The patient is a 51-year-old male who was admitted to the hospital a month ago because of abdominal pain. He was evaluated by General Surgery at that time. They did not feel that he had a surgical abdomen. The patient had a CT scan of the abdomen and pelvis, which was normal. He was then discharged home. He continued to have abdominal pain. He states that the pain is very rarely less than 7/10. The patient's pain is in the lower abdomen and sharp. It hurts on both left and right side. He has been having some loose stools with stool studies being negative up to this point. He also feels that eating any type of food can make it worse. He denies seeing any blood in his stool. He denies any family history of Crohn disease. He has had slight weight loss, although he is not able to give me how much he has lost. PAST SURGICAL HISTORY, MEDICAL PROBLEMS, MEDICATIONS, ALLERGIES TO MEDICATIONS, FAMILY HISTORY: See prior surgical consult. REVIEW OF SYSTEMS GASTROINTESTINAL: Abdominal pain. CONSTITUTIONAL: Weight loss. A 12-point review of systems is obtained with pertinent positives discussed and all others being negative. PHYSICAL EXAMINATION VITAL SIGNS: Temperature is 36.7, heart rate 70, blood pressure 136/87. GENERAL: The patient is sitting up in bed. He is in the middle of distress. He is cooperative. EYES: Nonicteric. NECK: No lymphadenopathy. HEART: Regular. LUNGS: Clear. BACK: Nontender. ABDOMEN: Soft, nondistended. Mild tenderness in the right and left lower quadrants. No hernias. Groin, no hernias. EXTREMITIES: No edema, cyanosis. NEUROLOGICAL: The patient appears to be neurologically intact without any deficits. PSYCHOLOGICAL: The patient is clear and cooperative and appears to answers questions fully. GENITALIA: Normal male genitalia. No testicular masses. Groin, no obvious hernias palpated. DIAGNOSTIC DATA: Liver function tests along with other chemistries are normal. White blood cell count of 5.2, hemoglobin 14, platelets of 146. Urine test is positive for oxycodone, opioids and marijuana. CTA of the abdomen and pelvis was normal. ASSESSMENT: Abdominal pain of unknown etiology. Certainly inflammatory bowel disease is high on the list with him having loose bowel movements. I would recommend checking the stool for fecal leukocytes and lactoferrin. I would recommend that he undergo esophagogastroduodenoscopy and colonoscopy with possible polypectomy or biopsy. The risks and possible complications of the procedure have been explained to him. He accepts the risks and wishes to proceed. PLAN 1. The patient will have bowel prep. 2. N.p.o. after midnight. 3. Fecal leukocytes/lactoferrin. 4. Esophagogastroduodenoscopy and colonoscopy with possible polypectomy and biopsy. JOB #: [id number] EXT JOB #:[id number] YARY
[2016-10-14] MEDS: SODIUM/POTASSIUM/MAG SULFATES 354 ML PREP KIT PO SCH (04:54)
[2016-10-14 05:56] LABS: BASOPHILS % (AUTO) 0.6 %; EOSINOPHILS # (AUTO) 0.2 10^3/uL (0.0-0.7); EOSINOPHILS % (AUTO) 4.2 %; HCT - HEMATOCRIT 40.6 % (42.0-52.0); HGB - HEMOGLOBIN 13.4 g/dL (14.0-18.0); LYMPHOCYTES # (AUTO) 1.6 10^3/uL (1.5-3.5); LYMPHOCYTES % (AUTO) 29.8 %; MEAN CORPUSCULAR HEMOGLOBIN 30.9 pg (27.0-31.0); MEAN CORPUSCULAR HGB CONC 33.1 g/dL (32.0-36.0); MEAN CORPUSCULAR VOLUME 93.3 fL (80.0-94.0); MONOCYTES # (AUTO) 0.7 10^3/uL (0.0-1.0); MONOCYTES % (AUTO) 13.8 %; NEUTROPHILS # (AUTO) 2.8 10^3/uL (1.5-6.6); NEUTROPHILS % (AUTO) 51.6 %; RED BLOOD COUNT 4.36 10^6/uL (4.70-6.10); UNCORRECTED WHITE BLOOD COUNT 5.4 x10^3/uL; WHITE BLOOD COUNT 5.4 x10^3/uL (4.8-10.8)
[2016-10-14] MEDS: SODIUM CHLORIDE FLUSH 0.9% 10 ML SYRINGE IVP SCH ×3 (06:12→18:49)
[2016-10-14 06:13] LABS: ALBUMIN/GLOBULIN RATIO 1.3 (1.0-2.2); BILIRUBIN,TOTAL 0.5 mg/dL (0.2-1.0); BUN - BLOOD UREA NITROGEN < 5 mg/dL (6-20); CALCIUM 8.3 mg/dL (8.5-10.3); CARBON DIOXIDE - CO2 28 mmol/L (21-32); CHLORIDE 108 mmol/L (101-111); CREATININE 0.6 mg/dL (0.6-1.2); GFR - MDRD 141 (>89); GLUCOSE 101 mg/dL (70-100); MAGNESIUM 1.9 mg/dL (1.7-2.8); PHOSPHORUS 3.3 mg/dL (2.5-4.6); POTASSIUM 2.9 mmol/L (3.5-5.0); SODIUM 143 mmol/L (135-145)
[2016-10-14] MEDS: HYOSCYAMINE SL 0.125 MG TABLET SL SCH ×3 (06:17→15:22)
[2016-10-14 06:22] LABS: CALCIUM, IONIZED 1.13 mmol/L (1.15-1.33); VBG PH 7.319 (7.31-7.41)
[2016-10-14] MEDS: POTASSIUM CHLOR 10 MEQ/100 ML 100 ML IV SCH ×4 (06:48→09:34)
[2016-10-14] MEDS: HYDROCORTISONE 1% OINTMENT 28 GM TUBE TOP SCH ×2 (07:07→20:31)
[2016-10-14] MEDS: INSULIN ASPART 300 UNIT/3 ML PEN SUBQ SCH ×4 (07:47→20:31)
[2016-10-14] MEDS: SODIUM CHLORIDE FLUSH 0.9% 10 ML SYRINGE IVP PRN ×2 (07:49→09:55)
[2016-10-14] MEDS ORDERED: POTASSIUM CHLORIDE 20 MEQ TABLET PO SCH (08:02)
[2016-10-14] MEDS: POLYETHYLENE GLYCOL 3350 17 GM PACKET PO SCH (08:07)
[2016-10-14] MEDS: CALCIUM CARBONATE CHEW 500 MG TABLET PO SCH ×2 (08:26→20:30)
[2016-10-14] MEDS: FAMOTIDINE 20 MG/50 ML 50 ML IV SCH ×2 (08:50→20:30)
[2016-10-14] MEDS ORDERED: ALPRAZolam 0.25 MG TABLET PO SCH (10:21)
--- NOTE | 2016-10-14 13:42 | PROVIDER PROGRESS NOTE ---
Assessment/Plan - Problem List (1) Abdominal pain Qualifiers: Abdominal location: generalized Qualified Code(s): R10.84 - Generalized abdominal pain Assessment/Plan: Unspecified abdominal pain with nausea, vomiting and diarrhea Possible etiology could be gastroparesis secondary to poorly controlled dm, mesenteric ischemia, gastric or duodenal ulcer, gastritis, gastroenteritis, cannabis induced cyclic vomiting, SBO, mass, IBD, IBS or psychosomatic pain Pain more localized today in the left lower quadrant and left flank Abd is soft with diffuse severe tenderness on exam Stool occult blood negative Patient had pancreatitis at [facility] 1 week ago and underwent 2 CT scans both negative CTA negative for ischemia or aneurysms Stool cx negative IV pain meds for pain control IVFs Improved nausea but pain persistent Surgery consulted will do EGD and colonoscopy at 2:30 pm today NPO Completed SuPrep (2) Hypokalemia Assessment/Plan: K was 2.9 this am likely secondary to prep for colonoscopy Replace K before colonoscopy and EGD (3) Diabetes Qualifiers: Diabetes mellitus type: type 2 Assessment/Plan: HbA1C is 11.4 Lantus 10 units subQ Novolog SS TID DM diet Blood sugars are very well controlled in the hospital Monitor glucose (4) Hypertension Qualifiers: Hypertension type: essential hypertension Qualified Code(s): I10 - Essential (primary) hypertension Assessment/Plan: Continue home dose of lisinopril Controlled Monitor BP (5) Hyperlipidemia Assessment/Plan: Restart statin (6) Prophylactic use of low molecular weight heparin for venous thromboembolism Assessment/Plan: On lovenox - Current Meds Current Meds: Current Medications Generic Name Dose Route Start Last Admin Trade Name Freq PRN Reason Stop Dose Admin Calcium Carbonate/Glycine 500 mg 10/14/16 09:00 10/14/16 08:26 Tums PO 500 mg BID ESTHER Administration Hydrocortisone 1 applic 10/14/16 09:00 10/14/16 07:07 Hydrocortisone TOP 1 applic BID ESTHER Administration Hyoscyamine 0.125 mg 10/12/16 07:00 10/14/16 10:50 Levsin SL 0.125 mg AC ESTHER Administration Sodium Chloride 1,000 mls @ 100 mls/hr 10/11/16 23:45 10/14/16 12:47 Normal Saline 0.9% IV 100 mls/hr .Q10H ESTHER Administration Famotidine 50 mls @ 100 mls/hr 10/11/16 23:45 10/14/16 08:50 Pepcid 20 Mg/50 Ml IV 100 mls/hr BID ESTHER Administration Insulin Aspart 1 - 9 unit 10/12/16 08:00 10/14/16 12:03 Novolog SUBQ Not Given 0800,1200,1700,2100 [facility] Protocol Insulin Glargine 10 unit 10/12/16 21:00 10/13/16 20:36 Lantus Solostar SUBQ 10 unit QPM ESTHER Administration Metoclopramide HCl 5 mg 10/11/16 23:34 10/12/16 06:38 Reglan Inj IVP 5 mg Q6HR PRN Administration Abdominal Pain Morphine Sulfate 2 mg 10/12/16 08:36 10/14/16 09:55 Morphine IVP 2 mg Q2HR PRN Administration PAIN Polyethylene Glycol 17 gm 10/12/16 09:00 10/14/16 08:07 Miralax PO Not Given DAILY ESTHER Sodium Chloride 10 ml 10/11/16 23:31 10/14/16 09:55 Normal Saline Flush 0.9% IVP 10 ml PRN PRN Administration NEEDED PER PROVIDER ORDERS Sodium Chloride 10 ml 10/12/16 06:00 10/14/16 12:51 Normal Saline Flush 0.9% IVP Not Given Q8HR ESTHER Zolpidem Tartrate 5 mg 10/14/16 00:08 10/14/16 00:14 Ambien PO 5 mg QPM PRN Administration Insomnia - Lab Result Lab results reviewed: Yes Fish Bone Diagrams: 10/14/16 05:39 10/14/16 05:39 - EKG Results EKG Interpreted Independently: Yes - Diagnostic Imaging Results Diagnostic Imaging Results: Final report reviewed - Additional Planning Condition/Complexity: Guarded My Orders: My Active Orders 10/14/16 00:01 NPO except Meds at Midnight [DIET] 10/14/16 09:00 Calcium Carbonate [Tums] 500 mg PO BID Hydrocortisone 1% Oint [Hydrocortisone] 1 applic TOP BID 10/15/16 05:00 CBC - COMP BLD CT W/AUTO DIFF [HEME] DAILYLAB CMP, RFLX TO IONIZED CA IF [CHEM] DAILYLAB MAGNESIUM [CHEM] DAILYLAB PHOSPHORUS [CHEM] DAILYLAB Consult/Specialty: Surgery Plan Discussed with:: Patient Time Spent: 31-60 minutes Subjective - Subjective Patient Reports: Other (He states he had an awful night due to the prep for the colonoscopy he slept only for a few hours. He states abdominal pain is just as bad and is localized now in the left lower quadrant. He feels anxious this morning about the procedure.) Nursing Reports: Diarrhea (secondary to bowel prep) Objective Vital Signs: Vital Signs - 24 hr 10/13/16 10/13/16 10/14/16 15:20 20:10 00:03 Temperature 36.8 C 36.4 C L 36.7 C Heart Rate [ 62 71 70 Brachial] Respiratory 18 18 18 Rate Blood Pressure 149/95 H 153/92 H 129/80 [Left Brachial artery] O2 Saturation 98 99 96 10/14/16 10/14/16 04:48 07:58 Temperature 36.8 C 36.7 C Heart Rate [ 62 64 Brachial] Respiratory 16 18 Rate Blood Pressure 118/71 146/91 H [Left Brachial artery] O2 Saturation 97 98 Oxygen O2 Source Room air I&O (Last 24 Hrs): Intake and Output Totals x24h 10/12/16 10/13/16 10/14/16 23:59 23:59 23:59 Intake Total 2823 5081 1831 Output Total 0164 656 2274 Balance 1823 4281 806 General: Alert, Oriented x3, Cooperative, Mild distress (Pain) HEENT: Atraumatic, PERRLA, EOMI, Other (Dry) Neck: Supple, No JVD, No thyromegaly, +2 carotid pulse wo bruit, No LAD Lymphatic: no adenopathy Neuro: Alert, Non Focal, CN 2-12 Grossly Intact, Oriented Times 3 Cardiovascular: Regular rate, Normal S1, Normal S2, No murmurs Respiratory: Chest non-tender, No respiratory distress, Breath sounds nml Abdomen: Normal bowel sounds, Soft, Other (Exquistely tender in LLQ, but no rebound or guarding) Extremities: No clubbing, No cyanosis, No edema, Normal pulses Skin: No rashes, No breakdown - Results Results: Laboratory Results WBC 5.4 x10^3/uL (4.8-10.8) 10/14/16 05:39 RBC 4.36 10^6/uL (4.70-6.10) L 10/14/16 05:39 Hgb 13.4 g/dL (14.0-18.0) L 10/14/16 05:39 Hct 40.6 % (42.0-52.0) L 10/14/16 05:39 MCV 93.3 fL (80.0-94.0) 10/14/16 05:39 MCH 30.9 pg (27.0-31.0) 10/14/16 05:39 MCHC 33.1 g/dL (32.0-36.0) 10/14/16 05:39 RDW 14.0 % (12.0-15.0) 10/14/16 05:39 Plt Count 151 10^3/uL (130-450) 10/14/16 05:39 MPV 10.0 fL (7.4-11.4) 10/14/16 05:39 Neut # 2.8 10^3/uL (1.5-6.6) 10/14/16 05:39 Lymph # 1.6 10^3/uL (1.5-3.5) 10/14/16 05:39 Latimer # 0.7 10^3/uL (0.0-1.0) 10/14/16 05:39 Eos # 0.2 10^3/uL (0.0-0.7) 10/14/16 05:39 Baso # 0.0 10^3/uL (0.0-0.1) 10/14/16 05:39 Absolute Nucleated RBC 0.00 x10^3/uL 10/14/16 05:39 Nucleated RBCs 0.0 /100WBC 10/14/16 05:39 ESR 5 mm/Hr (0-20) 10/14/16 05:39 VBG pH 7.319 (7.31-7.41) 10/14/16 05:39 Ionized Calcium 1.13 mmol/L (1.15-1.33) L 10/14/16 05:39 Sodium 143 mmol/L (135-145) 10/14/16 05:39 Potassium 2.9 mmol/L (3.5-5.0) L 10/14/16 05:39 Chloride 108 mmol/L (101-111) 10/14/16 05:39 Carbon Dioxide 28 mmol/L (21-32) 10/14/16 05:39 Anion Gap 7.0 (6-13) 10/14/16 05:39 BUN < 5 mg/dL (6-20) L 10/14/16 05:39 Creatinine 0.6 mg/dL (0.6-1.2) 10/14/16 05:39 Estimated GFR (MDRD) 141 (>89) 10/14/16 05:39 Glucose 101 mg/dL (70-100) H 10/14/16 05:39 Glycated Hemoglobin 11.4 % (4.6-6.2) H 10/11/16 21:35 Estim Average Glucose 280 (70-100) H 10/11/16 21:35 Calcium 8.3 mg/dL (8.5-10.3) L 10/14/16 05:39 Ionized Calcium YES 10/14/16 05:39 Phosphorus 3.3 mg/dL (2.5-4.6) 10/14/16 05:39 Magnesium 1.9 mg/dL (1.7-2.8) 10/14/16 05:39 Total Bilirubin 0.5 mg/dL (0.2-1.0) 10/14/16 05:39 AST 29 IU/L (10-42) 10/14/16 05:39 ALT 36 IU/L (10-60) 10/14/16 05:39 Alkaline Phosphatase 66 IU/L (42-121) 10/14/16 05:39 Total Protein 7.0 g/dL (6.7-8.2) 10/14/16 05:39 Albumin 4.0 g/dL (3.2-5.5) 10/14/16 05:39 Globulin 3.0 g/dL (2.1-4.2) 10/14/16 05:39 Albumin/Globulin Ratio 1.3 (1.0-2.2) 10/14/16 05:39 Amylase 25 U/L (28-100) L 10/11/16 21:35 Lipase 18 U/L (22-51) L 10/11/16 21:35 Urine Color YELLOW 10/12/16 18:20 Urine Clarity CLEAR (CLEAR) 10/12/16 18:20 Urine pH 6.5 PH (5.0-7.5) 10/12/16 18:20 Ur Specific [place] 1.010 (1.002-1.030) 10/12/16 18:20 Urine Protein NEGATIVE mg/dL (NEGATIVE) 10/12/16 18:20 Urine Glucose (UA) NEGATIVE mg/dL (NEGATIVE) 10/12/16 18:20 Urine Ketones TRACE mg/dL (NEGATIVE) 10/12/16 18:20 Urine Occult Blood NEGATIVE (NEGATIVE) 10/12/16 18:20 Urine Nitrite NEGATIVE (NEGATIVE) 10/12/16 18:20 Urine Bilirubin NEGATIVE (NEGATIVE) 10/12/16 18:20 Urine Urobilinogen 0.2 (NORMAL) E.U./dL (NORMAL) 10/12/16 18:20 Ur Leukocyte Esterase NEGATIVE (NEGATIVE) 10/12/16 18:20 Ur Microscopic Review NOT INDICATED 10/12/16 18:20 Urine Culture Comments NOT INDICATED 10/12/16 18:20 Stool Leukocytes, Qual NEGATIVE (Negative) 10/11/16 09:30 Urine Opiates Screen POSITIVE (NEGATIVE) H 10/11/16 23:13 Ur Oxycodone Screen POSITIVE (NEGATIVE) H 10/11/16 23:13 Urine Methadone Screen NEGATIVE (NEGATIVE) 10/11/16 23:13 Ur Propoxyphene Screen NEGATIVE (NEGATIVE) 10/11/16 23:13 Ur Barbiturates Screen NEGATIVE (NEGATIVE) 10/11/16 23:13 Ur Tricyclics Screen NEGATIVE (NEGATIVE) 10/11/16 23:13 Ur Phencyclidine Scrn NEGATIVE (NEGATIVE) 10/11/16 23:13 Ur Amphetamine Screen NEGATIVE (NEGATIVE) 10/11/16 23:13 U Methamphetamines Scrn NEGATIVE (NEGATIVE) 10/11/16 23:13 U Benzodiazepines Scrn NEGATIVE (NEGATIVE) 10/11/16 23:13 Urine Cocaine Screen NEGATIVE (NEGATIVE) 10/11/16 23:13 U Cannabinoids Screen POSITIVE (NEGATIVE) H 10/11/16 23:13 H. pylori IgG Antibody Negative (Negative) 10/11/16 21:35
[2016-10-14] MEDS ORDERED: MIDAZOLAM 2 MG/2 ML VIAL ONE (13:57)
[2016-10-14] MEDS ORDERED: fentaNYL 100 MCG/2 ML VIAL ONE (13:58)
[2016-10-14] MEDS ORDERED: GLYCOPYRROLATE 1 MG/5 ML VIAL IVP ONE (15:02)
[2016-10-14] MEDS ORDERED: ONDANSETRON 4 MG/2 ML VIAL IVP ONE (15:02)
[2016-10-14] MEDS ORDERED: LIDOCAINE-MPF 2% 5 ML VIAL IM ONE (15:02)
[2016-10-14] MEDS ORDERED: METOCLOPRAMIDE 10 MG/2 ML VIAL IVP ONE (15:02)
[2016-10-14] MEDS ORDERED: PROPOFOL 200 MG/20 ML VIAL IVP ONE (15:02)
[2016-10-14] MEDS ORDERED: SODIUM CHLORIDE 0.9% 1,000 ML IV ONE (15:29)
[2016-10-14] MEDS ORDERED: LACTATED RINGERS 1,000 ML IV ONE (16:18)
[2016-10-14] MEDS: ATORVASTATIN 10 MG TABLET PO SCH (20:30)
[2016-10-14] MEDS: INSULIN GLARGINE 300 UNIT/3 ML PEN SUBQ SCH (20:31)
[2016-10-15] MEDS: MORPHINE 2 MG/ML SYRINGE IVP PRN ×3 (02:30→08:48)
[2016-10-15] MEDS: SODIUM CHLORIDE 0.9% 1,000 ML IV SCH ×3 (02:41→17:41)
[2016-10-15] MEDS: SODIUM CHLORIDE FLUSH 0.9% 10 ML SYRINGE IVP SCH ×3 (05:42→20:38)
[2016-10-15 05:44] LABS: BASOPHILS % (AUTO) 0.7 %; EOSINOPHILS # (AUTO) 0.2 10^3/uL (0.0-0.7); EOSINOPHILS % (AUTO) 2.5 %; HCT - HEMATOCRIT 37.8 % (42.0-52.0); HGB - HEMOGLOBIN 12.5 g/dL (14.0-18.0); LYMPHOCYTES # (AUTO) 1.3 10^3/uL (1.5-3.5); LYMPHOCYTES % (AUTO) 19.1 %; MEAN CORPUSCULAR HEMOGLOBIN 30.8 pg (27.0-31.0); MEAN CORPUSCULAR HGB CONC 33.2 g/dL (32.0-36.0); MEAN CORPUSCULAR VOLUME 92.9 fL (80.0-94.0); MEAN PLATELET VOLUME 9.5 fL (7.4-11.4); MONOCYTES # (AUTO) 0.8 10^3/uL (0.0-1.0); MONOCYTES % (AUTO) 11.5 %; NEUTROPHILS # (AUTO) 4.6 10^3/uL (1.5-6.6); NEUTROPHILS % (AUTO) 66.2 %; RED BLOOD COUNT 4.07 10^6/uL (4.70-6.10); RED CELL DISTRIBUTION WIDTH 13.7 % (12.0-15.0)
[2016-10-15] MEDS: HYOSCYAMINE SL 0.125 MG TABLET SL SCH ×3 (06:00→16:47)
[2016-10-15 06:07] LABS: ALBUMIN/GLOBULIN RATIO 1.6 (1.0-2.2); BILIRUBIN,TOTAL 0.8 mg/dL (0.2-1.0); BUN - BLOOD UREA NITROGEN < 5 mg/dL (6-20); CALCIUM 8.7 mg/dL (8.5-10.3); CARBON DIOXIDE - CO2 28 mmol/L (21-32); CHLORIDE 107 mmol/L (101-111); CREATININE 0.7 mg/dL (0.6-1.2); GFR - MDRD 118 (>89); GLUCOSE 92 mg/dL (70-100); MAGNESIUM 1.8 mg/dL (1.7-2.8); PHOSPHORUS 3.9 mg/dL (2.5-4.6); POTASSIUM 3.4 mmol/L (3.5-5.0); SODIUM 142 mmol/L (135-145); TOTAL PROTEIN 5.7 g/dL (6.7-8.2)
[2016-10-15] MEDS ORDERED: POTASSIUM CHLORIDE 20 MEQ TABLET PO SCH (07:53)
[2016-10-15] MEDS: CALCIUM CARBONATE CHEW 500 MG TABLET PO SCH ×2 (08:12→20:37)
[2016-10-15] MEDS: LISINOPRIL 5 MG TABLET PO SCH (08:12)
[2016-10-15] MEDS: FAMOTIDINE 20 MG/50 ML 50 ML IV SCH ×2 (08:12→20:37)
[2016-10-15] MEDS: INSULIN ASPART 300 UNIT/3 ML PEN SUBQ SCH ×4 (08:12→20:39)
[2016-10-15] MEDS: HYDROCORTISONE 1% OINTMENT 28 GM TUBE TOP SCH ×2 (08:48→20:29)
[2016-10-15] MEDS: POLYETHYLENE GLYCOL 3350 17 GM PACKET PO SCH (09:46)
[2016-10-15] MEDS: GABAPENTIN 300 MG CAPSULE PO SCH ×4 (10:31→20:38)
[2016-10-15] MEDS: oxyCODONE 5 MG TABLET PO PRN ×4 (10:31→22:52)
[2016-10-15] MEDS ORDERED: ceFAZolin 2 GM/50 ML 50 ML IV SCH (10:45)
--- NOTE | 2016-10-15 11:10 | PROVIDER PROGRESS NOTE ---
Assessment/Plan - Problem List (1) Abdominal pain Qualifiers: Abdominal location: generalized Qualified Code(s): R10.84 - Generalized abdominal pain Assessment/Plan: Unspecified abdominal pain with nausea, vomiting and diarrhea Possible etiology could be gastroparesis secondary to poorly controlled dm, mesenteric ischemia, gastric or duodenal ulcer, gastritis, gastroenteritis, cannabis induced cyclic vomiting, SBO, mass, IBD, IBS or psychosomatic pain Pain more localized today in the left lower quadrant and left flank Abd is soft with diffuse severe tenderness on exam Stool occult blood negative Patient had pancreatitis at [facility] 1 week ago and underwent 2 CT scans both negative CTA negative for ischemia or aneurysms Stool cx negative IV pain meds for pain control required every 2 hours and pain still IVFs Improved nausea but pain persistent Surgery consulted EGD and colonoscopy negative, biopsies were sent Patient was kept NPO overnight and pain is still 9/10 this morning located in the left lower quadrant Surgery saw patient this morning and will take him for laproscopic laporotomy in the morning Patient NPO at midnight Change to inpatient status as patients pain is intractable despite not finding a cause for his abdominal pain (2) Hypokalemia Assessment/Plan: K was 3.4 this am Replace K (3) Diabetes Qualifiers: Diabetes mellitus type: type 2 Assessment/Plan: HbA1C is 11.4 Lantus 10 units subQ Novolog SS TID DM diet Blood sugars are very well controlled in the hospital Monitor glucose (4) Hypertension Qualifiers: Hypertension type: essential hypertension Qualified Code(s): I10 - Essential (primary) hypertension Assessment/Plan: Continue home dose of lisinopril Controlled Monitor BP (5) Hyperlipidemia Assessment/Plan: Stable On statin (6) Peripheral Neuropathy Assessment/Plan: Patient has peripheral neuropathy secondary to diabetes It is starting to bother him Restart gabapentin today (7) Prophylactic use of low molecular weight heparin for venous thromboembolism Assessment/Plan: On lovenox - Current Meds Current Meds: Current Medications Generic Name Dose Route Start Last Admin Trade Name Ejq PRN Reason Stop Dose Admin Atorvastatin Calcium 10 mg 10/14/16 21:00 10/14/16 20:30 Lipitor PO 10 mg QPM ESTHER Administration Calcium Carbonate/Glycine 500 mg 10/14/16 09:00 10/15/16 08:12 Tums PO 500 mg BID ESTHER Administration Hydrocortisone 1 applic 10/14/16 09:00 10/15/16 08:48 Hydrocortisone TOP 1 applic BID ESTHER Administration Hyoscyamine 0.125 mg 10/12/16 07:00 10/15/16 06:00 Levsin SL 0.125 mg AC ESTHER Administration Famotidine 50 mls @ 100 mls/hr 10/11/16 23:45 10/15/16 08:12 Pepcid 20 Mg/50 Ml IV 100 mls/hr BID ESTHER Administration Sodium Chloride 1,000 mls @ 50 mls/hr 10/15/16 09:36 10/15/16 09:46 Normal Saline 0.9% IV Not Given .Q20H ESTHER Insulin Aspart 1 - 9 unit 10/12/16 08:00 10/15/16 08:12 Novolog SUBQ Not Given 0800,1200,1700,2100 [facility] Protocol Insulin Glargine 10 unit 10/12/16 21:00 10/14/16 20:31 Lantus Solostar SUBQ 10 unit QPM ESTHER Administration Lisinopril 5 mg 10/15/16 09:00 10/15/16 08:12 Zestril PO 5 mg DAILY ESTHER Administration Metoclopramide HCl 5 mg 10/11/16 23:34 10/12/16 06:38 Reglan Inj IVP 5 mg Q6HR PRN Administration Abdominal Pain Polyethylene Glycol 17 gm 10/12/16 09:00 10/15/16 09:46 Miralax PO Not Given DAILY ESTHER Potassium Chloride 20 meq 10/15/16 07:53 10/15/16 08:12 K-Dur PO 10/15/16 12:00 20 meq ONCE ESTHER Administration Sodium Chloride 10 ml 10/11/16 23:31 10/14/16 09:55 Normal Saline Flush 0.9% IVP 10 ml PRN PRN Administration NEEDED PER PROVIDER ORDERS Sodium Chloride 10 ml 10/12/16 06:00 10/15/16 05:42 Normal Saline Flush 0.9% IVP Not Given Q8HR ESTHER Zolpidem Tartrate 5 mg 10/14/16 00:08 10/14/16 23:42 Ambien PO 5 mg QPM PRN Administration Insomnia - Lab Result Lab results reviewed: Yes Fish Bone Diagrams: 10/15/16 05:37 10/15/16 05:37 - Diagnostic Imaging Results Diagnostic Imaging Results: Final report reviewed - Additional Planning Condition/Complexity: Guarded My Orders: My Active Orders 10/14/16 21:00 Atorvastatin [Lipitor] 10 mg PO QPM 10/15/16 07:53 Potassium Chloride [K-Dur] 20 meq PO ONCE 10/15/16 09:00 Lisinopril [Zestril] 5 mg PO DAILY 10/15/16 10:03 oxyCODONE [Roxicodone] 5 mg PO Q4HR PRN 10/15/16 10:25 Admit [Admit \ Transfer \ Status] [RC] ONCE 10/15/16 10:40 Gabapentin [Neurontin] 300 mg PO QID Consult/Specialty: Surgery Plan Discussed with:: Patient Time Spent: 31-60 minutes Subjective - Subjective Patient Reports: Pain (He continues to have 9/10 abdominal pain despite IV morphine every 2 hours. He states pain is located in the left lower quadrant. He denies any diarrhea, nausea or vomiting. He does have some peripheral neuropathys as well today.) Nursing Reports: Pain Objective Vital Signs: Vital Signs - 24 hr 10/14/16 10/14/16 10/14/16 13:46 16:30 16:32 Temperature 36.8 C Heart Rate [ 79 Brachial] Respiratory 18 Rate Blood Pressure 149/89 H [Left Brachial artery] O2 Saturation 98 98 100 10/14/16 10/14/16 10/14/16 16:35 16:40 16:47 Temperature Heart Rate [ Brachial] Respiratory Rate Blood Pressure [Left Brachial artery] O2 Saturation 96 95 98 10/14/16 10/14/16 10/14/16 16:56 17:15 17:45 Temperature 36.6 C 36.6 C Heart Rate [ 65 74 Brachial] Respiratory 14 16 Rate Blood Pressure 158/98 H 142/89 H [Left Brachial artery] O2 Saturation 96 100 98 10/14/16 10/14/16 10/14/16 18:15 19:15 20:15 Temperature 36.3 C L 36.8 C 36.8 C Heart Rate [ 77 84 66 Brachial] Respiratory 16 18 16 Rate Blood Pressure 140/92 H 132/87 H 157/103 H [Left Brachial artery] O2 Saturation 98 99 99 10/14/16 10/15/16 10/15/16 23:59 02:32 05:55 Temperature 36.6 C 36.6 C 36.8 C Heart Rate [ 72 72 71 Brachial] Respiratory 18 22 18 Rate Blood Pressure 137/87 H 125/79 128/80 [Left Brachial artery] O2 Saturation 98 98 98 10/15/16 07:31 Temperature 36.5 C Heart Rate [ 65 Brachial] Respiratory 18 Rate Blood Pressure 132/79 H [Left Brachial artery] O2 Saturation 98 Oxygen O2 Source Room air I&O (Last 24 Hrs): Intake and Output Totals x24h 10/13/16 10/14/16 10/15/16 23:59 23:59 23:59 Intake Total 5081 3011 766 Output Total 800 1025 Balance 4281 1986 766 General: Alert, Oriented x3, Mild distress (Grimacing in pain holding his left lower abdomen) HEENT: Atraumatic, PERRLA Neck: Supple, No JVD, No thyromegaly, +2 carotid pulse wo bruit, No LAD Lymphatic: no adenopathy Neuro: Alert, Non Focal, CN 2-12 Grossly Intact, Oriented Times 3 Cardiovascular: Regular rate, Normal S1, Normal S2, No murmurs Respiratory: Chest non-tender, No respiratory distress, Breath sounds nml Abdomen: Normal bowel sounds, Soft, Other (Very tender especially in the LLQ, no rebound, no guarding) Extremities: No clubbing, No cyanosis, No edema, Normal pulses, No tenderness/ swelling Skin: No rashes, No breakdown, No significant lesion - Results Results: Laboratory Results WBC 7.0 x10^3/uL (4.8-10.8) 10/15/16 05:37 RBC 4.07 10^6/uL (4.70-6.10) L 10/15/16 05:37 Hgb 12.5 g/dL (14.0-18.0) L 10/15/16 05:37 Hct 37.8 % (42.0-52.0) L 10/15/16 05:37 MCV 92.9 fL (80.0-94.0) 10/15/16 05:37 MCH 30.8 pg (27.0-31.0) 10/15/16 05:37 MCHC 33.2 g/dL (32.0-36.0) 10/15/16 05:37 RDW 13.7 % (12.0-15.0) 10/15/16 05:37 Plt Count 140 10^3/uL (130-450) 10/15/16 05:37 MPV 9.5 fL (7.4-11.4) 10/15/16 05:37 Neut # 4.6 10^3/uL (1.5-6.6) 10/15/16 05:37 Lymph # 1.3 10^3/uL (1.5-3.5) L 10/15/16 05:37 Luna # 0.8 10^3/uL (0.0-1.0) 10/15/16 05:37 Eos # 0.2 10^3/uL (0.0-0.7) 10/15/16 05:37 Baso # 0.0 10^3/uL (0.0-0.1) 10/15/16 05:37 Absolute Nucleated RBC 0.00 x10^3/uL 10/15/16 05:37 Nucleated RBCs 0.0 /100WBC 10/15/16 05:37 ESR 5 mm/Hr (0-20) 10/14/16 05:39 VBG pH 7.319 (7.31-7.41) 10/14/16 05:39 Ionized Calcium 1.13 mmol/L (1.15-1.33) L 10/14/16 05:39 Sodium 142 mmol/L (135-145) 10/15/16 05:37 Potassium 3.4 mmol/L (3.5-5.0) L 10/15/16 05:37 Chloride 107 mmol/L (101-111) 10/15/16 05:37 Carbon Dioxide 28 mmol/L (21-32) 10/15/16 05:37 Anion Gap 7.0 (6-13) 10/15/16 05:37 BUN < 5 mg/dL (6-20) L 10/15/16 05:37 Creatinine 0.7 mg/dL (0.6-1.2) 10/15/16 05:37 Estimated GFR (MDRD) 118 (>89) 10/15/16 05:37 Glucose 92 mg/dL (70-100) 10/15/16 05:37 POC Whole Bld Glucose 99 mg/dL (70 - 100) 10/15/16 07:26 Glycated Hemoglobin 11.4 % (4.6-6.2) H 10/11/16 21:35 Estim Average Glucose 280 (70-100) H 10/11/16 21:35 Calcium 8.7 mg/dL (8.5-10.3) 10/15/16 05:37 Ionized Calcium NO 10/15/16 05:37 Phosphorus 3.9 mg/dL (2.5-4.6) 10/15/16 05:37 Magnesium 1.8 mg/dL (1.7-2.8) 10/15/16 05:37 Total Bilirubin 0.8 mg/dL (0.2-1.0) 10/15/16 05:37 AST 22 IU/L (10-42) 10/15/16 05:37 ALT 30 IU/L (10-60) 10/15/16 05:37 Alkaline Phosphatase 60 IU/L (42-121) 10/15/16 05:37 Total Protein 5.7 g/dL (6.7-8.2) L 10/15/16 05:37 Albumin 3.5 g/dL (3.2-5.5) 10/15/16 05:37 Globulin 2.2 g/dL (2.1-4.2) 10/15/16 05:37 Albumin/Globulin Ratio 1.6 (1.0-2.2) 10/15/16 05:37 Amylase 25 U/L (28-100) L 10/11/16 21:35 Lipase 18 U/L (22-51) L 10/11/16 21:35 Urine Color YELLOW 10/12/16 18:20 Urine Clarity CLEAR (CLEAR) 10/12/16 18:20 Urine pH 6.5 PH (5.0-7.5) 10/12/16 18:20 Ur Specific [place] 1.010 (1.002-1.030) 10/12/16 18:20 Urine Protein NEGATIVE mg/dL (NEGATIVE) 10/12/16 18:20 Urine Glucose (UA) NEGATIVE mg/dL (NEGATIVE) 10/12/16 18:20 Urine Ketones TRACE mg/dL (NEGATIVE) 10/12/16 18:20 Urine Occult Blood NEGATIVE (NEGATIVE) 10/12/16 18:20 Urine Nitrite NEGATIVE (NEGATIVE) 10/12/16 18:20 Urine Bilirubin NEGATIVE (NEGATIVE) 10/12/16 18:20 Urine Urobilinogen 0.2 (NORMAL) E.U./dL (NORMAL) 10/12/16 18:20 Ur Leukocyte Esterase NEGATIVE (NEGATIVE) 10/12/16 18:20 Ur Microscopic Review NOT INDICATED 10/12/16 18:20 Urine Culture Comments NOT INDICATED 10/12/16 18:20 Stool Leukocytes, Qual NEGATIVE (Negative) 10/11/16 09:30 Stl Giardia Antigen TNP 10/11/16 09:30 Urine Opiates Screen POSITIVE (NEGATIVE) H 10/11/16 23:13 Ur Oxycodone Screen POSITIVE (NEGATIVE) H 10/11/16 23:13 Urine Methadone Screen NEGATIVE (NEGATIVE) 10/11/16 23:13 Ur Propoxyphene Screen NEGATIVE (NEGATIVE) 10/11/16 23:13 Ur Barbiturates Screen NEGATIVE (NEGATIVE) 10/11/16 23:13 Ur Tricyclics Screen NEGATIVE (NEGATIVE) 10/11/16 23:13 Ur Phencyclidine Scrn NEGATIVE (NEGATIVE) 10/11/16 23:13 Ur Amphetamine Screen NEGATIVE (NEGATIVE) 10/11/16 23:13 U Methamphetamines Scrn NEGATIVE (NEGATIVE) 10/11/16 23:13 U Benzodiazepines Scrn NEGATIVE (NEGATIVE) 10/11/16 23:13 Urine Cocaine Screen NEGATIVE (NEGATIVE) 10/11/16 23:13 U Cannabinoids Screen POSITIVE (NEGATIVE) H 10/11/16 23:13 Cryptosporidium Ag TNP 10/11/16 09:30 H. pylori IgG Antibody Negative (Negative) 10/11/16 21:35
[2016-10-15] MEDS: METOCLOPRAMIDE 10 MG/2 ML VIAL IVP PRN ×2 (17:17→23:53)
[2016-10-15] MEDS: ATORVASTATIN 10 MG TABLET PO SCH (20:38)
[2016-10-15] MEDS: INSULIN GLARGINE 300 UNIT/3 ML PEN SUBQ SCH (20:39)
[2016-10-15] MEDS: ZOLPIDEM 5 MG TABLET PO PRN (22:10)
[2016-10-16] MEDS: SODIUM CHLORIDE FLUSH 0.9% 10 ML SYRINGE IVP SCH ×3 (06:01→22:25)
[2016-10-16] MEDS: HYOSCYAMINE SL 0.125 MG TABLET SL SCH ×3 (06:29→15:45)
[2016-10-16] MEDS: oxyCODONE 5 MG TABLET PO PRN ×4 (06:31→22:11)
[2016-10-16] MEDS ORDERED: ceFAZolin 2 GM/50 ML 50 ML IV SCH (07:00)
[2016-10-16] MEDS: INSULIN ASPART 300 UNIT/3 ML PEN SUBQ SCH ×4 (08:11→20:01)
[2016-10-16 08:13] LABS: HCT - HEMATOCRIT 44.1 % (42.0-52.0); HGB - HEMOGLOBIN 14.6 g/dL (14.0-18.0); MEAN CORPUSCULAR HEMOGLOBIN 30.7 pg (27.0-31.0); MEAN CORPUSCULAR HGB CONC 33.1 g/dL (32.0-36.0); MEAN CORPUSCULAR VOLUME 92.8 fL (80.0-94.0); MEAN PLATELET VOLUME 9.9 fL (7.4-11.4); RED BLOOD COUNT 4.76 10^6/uL (4.70-6.10); RED CELL DISTRIBUTION WIDTH 13.5 % (12.0-15.0); WHITE BLOOD COUNT 6.1 x10^3/uL (4.8-10.8)
[2016-10-16] MEDS: FAMOTIDINE 20 MG/50 ML 50 ML IV SCH ×2 (08:24→20:02)
[2016-10-16] MEDS: GABAPENTIN 300 MG CAPSULE PO SCH ×4 (08:25→19:59)
[2016-10-16] MEDS: POLYETHYLENE GLYCOL 3350 17 GM PACKET PO SCH (08:25)
[2016-10-16] MEDS: HYDROCORTISONE 1% OINTMENT 28 GM TUBE TOP SCH ×2 (08:25→19:59)
[2016-10-16] MEDS: LISINOPRIL 5 MG TABLET PO SCH (08:25)
[2016-10-16] MEDS: CALCIUM CARBONATE CHEW 500 MG TABLET PO SCH ×2 (08:25→20:00)
[2016-10-16 08:31] LABS: ALBUMIN/GLOBULIN RATIO 1.4 (1.0-2.2); BILIRUBIN,TOTAL 0.9 mg/dL (0.2-1.0); BUN - BLOOD UREA NITROGEN 5 mg/dL (6-20); CALCIUM 9.5 mg/dL (8.5-10.3); CARBON DIOXIDE - CO2 30 mmol/L (21-32); CHLORIDE 102 mmol/L (101-111); CREATININE 0.8 mg/dL (0.6-1.2); GFR - MDRD 101 (>89); GLUCOSE 154 mg/dL (70-100); MAGNESIUM 1.8 mg/dL (1.7-2.8); PHOSPHORUS 3.8 mg/dL (2.5-4.6); POTASSIUM 3.7 mmol/L (3.5-5.0); SODIUM 141 mmol/L (135-145); TOTAL PROTEIN 7.3 g/dL (6.7-8.2)
[2016-10-16] MEDS ORDERED: LACTATED RINGERS 1,000 ML IV ONE ×2 (09:44→10:07)
[2016-10-16] MEDS ORDERED: BUPIVACAINE 0.5%-EPI 1:200000 PF 30 ML VIAL SUBQ ONE ×2 (10:05)
[2016-10-16] MEDS ORDERED: PROPOFOL 200 MG/20 ML VIAL IVP ONE (10:15)
[2016-10-16] MEDS ORDERED: MIDAZOLAM 2 MG/2 ML VIAL IVP ONE (10:15)
[2016-10-16] MEDS ORDERED: DEXAMETHASONE 4 MG/ML VIAL IVP ONE (10:15)
[2016-10-16] MEDS ORDERED: KETOROLAC 30 MG/ML VIAL IVP ONE (10:15)
[2016-10-16] MEDS ORDERED: fentaNYL 100 MCG/2 ML VIAL IVP ONE (10:15)
[2016-10-16] MEDS ORDERED: ROCURONIUM 50 MG/5 ML VIAL IVP ONE (10:15)
[2016-10-16] MEDS ORDERED: GLUCAGON 1 MG/ML VIAL IM ONE (10:15)
[2016-10-16] MEDS ORDERED: LIDOCAINE-MPF 2% 5 ML VIAL IM ONE (10:15)
[2016-10-16] MEDS ORDERED: ONDANSETRON 4 MG/2 ML VIAL IVP ONE (10:15)
[2016-10-16] MEDS ORDERED: SUCCINYLCHOLINE 200 MG/10 ML VIAL IVP ONE (10:15)
[2016-10-16] MEDS ORDERED: NEOSTIGMINE 1 MG/1 ML 10 ML MDV IVP ONE (10:15)
[2016-10-16] MEDS ORDERED: HYDROmorphone 1 MG/ML SYRINGE ONE (12:01)
[2016-10-16] MEDS ORDERED: ONDANSETRON 4 MG/2 ML VIAL ONE (12:01)
[2016-10-16] MEDS ORDERED: HYDROmorphone 1 MG/ML SYRINGE IVP STA (13:52)
[2016-10-16] MEDS: SODIUM CHLORIDE 0.9% 1,000 ML IV SCH (14:14)
--- NOTE | 2016-10-16 14:39 | PROVIDER PROGRESS NOTE ---
Assessment/Plan - Problem List (1) Abdominal pain Qualifiers: Abdominal location: generalized Qualified Code(s): R10.84 - Generalized abdominal pain Assessment/Plan: Unspecified abdominal pain with nausea, vomiting and diarrhea Possible etiology could be gastroparesis secondary to poorly controlled dm, mesenteric ischemia, gastric or duodenal ulcer, gastritis, gastroenteritis, cannabis induced cyclic vomiting, SBO, mass, IBD, IBS or psychosomatic pain Pain still not improved as patient continues to require pain medication around the clock Abd is soft with diffuse severe tenderness on exam Stool occult blood negative Patient had pancreatitis at [facility] 1 week ago and underwent 2 CT scans both negative, lipase normal on presentation here CTA negative for ischemia or aneurysms Stool cx negative IVFs Improved nausea but pain persistent despite pain meds around the clock Surgery consulted EGD and colonoscopy negative, biopsies also negative Patient went for diagnostic laparoscopy this morning and only finding was adhesions but no obstruction. Patient did undergo lysis of adhesions Patient now recovering from surgery and pain is even worse previous abdominal pain is still there but now also having post operative pain We will place him on Full liquid diet today as per surgery recommendations and then advance to regular diet in the morning if patient tolerates diet he will be discharged home tomorrow with pain medication for pain control and will follow up with Dr España in [address] or MRI enterography (2) Hypokalemia Assessment/Plan: Resolved (3) Diabetes Qualifiers: Diabetes mellitus type: type 2 Assessment/Plan: HbA1C is 11.4 Lantus 10 units subQ Novolog SS TID Full liquid diet Blood sugars are very well controlled in the hospital Monitor glucose (4) Hypertension Qualifiers: Hypertension type: essential hypertension Qualified Code(s): I10 - Essential (primary) hypertension Assessment/Plan: Continue home dose of lisinopril Controlled BP elevated today after surgery likely due to pain will try to control pain (5) Hyperlipidemia Assessment/Plan: Stable On statin (6) Peripheral Neuropathy Assessment/Plan: Patient has peripheral neuropathy secondary to diabetes On gabapentin (7) Prophylactic use of low molecular weight heparin for venous thromboembolism Assessment/Plan: On lovenox - Current Meds Current Meds: Current Medications Generic Name Dose Route Start Last Admin Trade Name Freq PRN Reason Stop Dose Admin Atorvastatin Calcium 10 mg 10/14/16 21:00 10/15/16 20:38 Lipitor PO 10 mg QPM ESTHER Administration Calcium Carbonate/Glycine 500 mg 10/14/16 09:00 10/16/16 08:25 Tums PO 500 mg BID ESTHER Administration Gabapentin 300 mg 10/15/16 10:40 10/16/16 13:44 Neurontin PO 300 mg QID ESTHER Administration Hydrocortisone 1 applic 10/14/16 09:00 10/16/16 08:25 Hydrocortisone TOP 1 applic BID ESTHER Administration Hyoscyamine 0.125 mg 10/12/16 07:00 10/16/16 13:44 Levsin SL 0.125 mg AC ESTHER Administration Famotidine 50 mls @ 100 mls/hr 10/11/16 23:45 10/16/16 08:24 Pepcid 20 Mg/50 Ml IV 100 mls/hr BID ESTHER Administration Sodium Chloride 1,000 mls @ 50 mls/hr 10/15/16 09:36 10/16/16 14:14 Normal Saline 0.9% IV 50 mls/hr .Q20H ESTHER Administration Cefazolin Sodium/Dextrose 50 mls @ 100 mls/hr 10/16/16 07:00 10/16/16 13:18 Ancef 2 Gm/50 Ml IV 10/16/16 18:00 Not Given ONCE [facility] Insulin Aspart 1 - 9 unit 10/12/16 08:00 10/16/16 12:00 Novolog SUBQ Not Given 0800,1200,1700,2100 [facility] Protocol Insulin Glargine 10 unit 10/12/16 21:00 10/15/16 20:39 Lantus Solostar SUBQ 10 unit QPM [facility] Administration Lisinopril 5 mg 10/15/16 09:00 10/16/16 08:25 Zestril PO 5 mg DAILY ESTHER Administration Metoclopramide HCl 5 mg 10/11/16 23:34 10/15/16 23:53 Reglan Inj IVP 5 mg Q6HR PRN Administration Abdominal Pain Ondansetron HCl 4 mg 10/11/16 23:31 10/15/16 18:12 Zofran Inj IVP 4 mg Q6HR PRN Administration Nausea / Vomiting Oxycodone HCl 5 mg 10/15/16 10:03 10/16/16 13:44 Roxicodone PO 5 mg Q4HR PRN Administration PAIN Polyethylene Glycol 17 gm 10/12/16 09:00 10/16/16 08:25 Miralax PO Not Given DAILY ESTHER Sodium Chloride 10 ml 10/11/16 23:31 10/14/16 09:55 Normal Saline Flush 0.9% IVP 10 ml PRN PRN Administration NEEDED PER PROVIDER ORDERS Sodium Chloride 10 ml 10/12/16 06:00 10/16/16 13:44 Normal Saline Flush 0.9% IVP Not Given Q8HR ESTHER Zolpidem Tartrate 5 mg 10/14/16 00:08 10/15/16 22:10 Ambien PO 5 mg QPM PRN Administration Insomnia - Lab Result Lab results reviewed: Yes Fish Bone Diagrams: 10/16/16 08:05 10/16/16 08:05 - Diagnostic Imaging Results Diagnostic Imaging Results: Final report reviewed - Additional Planning Condition/Complexity: Guarded Consult/Specialty: Surgery Plan Discussed with:: Patient Time Spent: 31-60 minutes Subjective - Subjective Patient Reports: Pain (Continues to have abdominal pain in left lower quadrant going across the midline of the abdomen. He also now has more pain from surgery. He is complaining of pain in the area of surgical inscision. No fevers overnight. Nause and diarrhea have resolved.) Nursing Reports: Pain (abdominal) Objective Vital Signs: Vital Signs - 24 hr 10/15/16 10/15/16 10/16/16 16:02 20:10 00:05 Temperature 36.6 C 36.7 C 37.2 C Heart Rate [ 67 63 76 Brachial] Respiratory 20 16 16 Rate Blood Pressure 143/94 H 147/91 H 150/95 H [Left Brachial artery] O2 Saturation 100 98 99 10/16/16 10/16/16 10/16/16 07:48 11:55 12:00 Temperature 36.8 C Heart Rate [ 70 Brachial] Respiratory 16 Rate Blood Pressure 146/98 H [Left Brachial artery] O2 Saturation 99 100 98 10/16/16 10/16/16 10/16/16 12:05 12:10 12:20 Temperature Heart Rate [ Brachial] Respiratory Rate Blood Pressure [Left Brachial artery] O2 Saturation 95 98 98 10/16/16 10/16/16 10/16/16 12:25 12:57 13:38 Temperature 36.5 C 36.4 C L Heart Rate [ 79 94 Brachial] Respiratory 16 17 Rate Blood Pressure 135/88 H 148/92 H [Left Brachial artery] O2 Saturation 98 96 99 10/16/16 14:25 Temperature 36.5 C Heart Rate [ 104 H Brachial] Respiratory 16 Rate Blood Pressure 143/90 H [Left Brachial artery] O2 Saturation 97 Oxygen O2 Source Room air I&O (Last 24 Hrs): Intake and Output Totals x24h 10/14/16 10/15/16 10/16/16 23:59 23:59 23:59 Intake Total 3701 450 Output Total 500 Balance 3701 -50 General: Alert, Oriented x3, Cooperative, Moderate distress (abdominal pain) HEENT: Atraumatic, PERRLA, EOMI, Mucous membr. moist/pink Neck: Supple, No JVD, No thyromegaly, +2 carotid pulse wo bruit, No LAD Lymphatic: no adenopathy Neuro: Alert, Non Focal, CN 2-12 Grossly Intact, Oriented Times 3 Cardiovascular: Regular rate, Normal S1, Normal S2, No murmurs Respiratory: Chest non-tender, No respiratory distress, Breath sounds nml Abdomen: Normal bowel sounds, Soft, Other (Diffusely tender, guarding in area of surgery, no rebound, abd not rigid) Extremities: No clubbing, No cyanosis, No edema, Normal pulses, No tenderness/ swelling Skin: No rashes, No breakdown, No significant lesion - Results Results: Laboratory Results WBC 6.1 x10^3/uL (4.8-10.8) 10/16/16 08:05 RBC 4.76 10^6/uL (4.70-6.10) 10/16/16 08:05 Hgb 14.6 g/dL (14.0-18.0) 10/16/16 08:05 Hct 44.1 % (42.0-52.0) 10/16/16 08:05 MCV 92.8 fL (80.0-94.0) 10/16/16 08:05 MCH 30.7 pg (27.0-31.0) 10/16/16 08:05 MCHC 33.1 g/dL (32.0-36.0) 10/16/16 08:05 RDW 13.5 % (12.0-15.0) 10/16/16 08:05 Plt Count 154 10^3/uL (130-450) 10/16/16 08:05 MPV 9.9 fL (7.4-11.4) 10/16/16 08:05 Neut # 4.6 10^3/uL (1.5-6.6) 10/15/16 05:37 Lymph # 1.3 10^3/uL (1.5-3.5) L 10/15/16 05:37 Whitman # 0.8 10^3/uL (0.0-1.0) 10/15/16 05:37 Eos # 0.2 10^3/uL (0.0-0.7) 10/15/16 05:37 Baso # 0.0 10^3/uL (0.0-0.1) 10/15/16 05:37 Absolute Nucleated RBC 0.00 x10^3/uL 10/15/16 05:37 Nucleated RBCs 0.0 /100WBC 10/15/16 05:37 ESR 5 mm/Hr (0-20) 10/14/16 05:39 VBG pH 7.319 (7.31-7.41) 10/14/16 05:39 Ionized Calcium 1.13 mmol/L (1.15-1.33) L 10/14/16 05:39 Sodium 141 mmol/L (135-145) 10/16/16 08:05 Potassium 3.7 mmol/L (3.5-5.0) 10/16/16 08:05 Chloride 102 mmol/L (101-111) 10/16/16 08:05 Carbon Dioxide 30 mmol/L (21-32) 10/16/16 08:05 Anion Gap 9.0 (6-13) 10/16/16 08:05 BUN 5 mg/dL (6-20) L 10/16/16 08:05 Creatinine 0.8 mg/dL (0.6-1.2) 10/16/16 08:05 Estimated GFR (MDRD) 101 (>89) 10/16/16 08:05 Glucose 154 mg/dL (70-100) H 10/16/16 08:05 POC Whole Bld Glucose 272 mg/dL (70 - 100) H 10/15/16 11:25 Glycated Hemoglobin 11.4 % (4.6-6.2) H 10/11/16 21:35 Estim Average Glucose 280 (70-100) H 10/11/16 21:35 Calcium 9.5 mg/dL (8.5-10.3) 10/16/16 08:05 Ionized Calcium NO 10/16/16 08:05 Phosphorus 3.8 mg/dL (2.5-4.6) 10/16/16 08:05 Magnesium 1.8 mg/dL (1.7-2.8) 10/16/16 08:05 Total Bilirubin 0.9 mg/dL (0.2-1.0) 10/16/16 08:05 AST 19 IU/L (10-42) 10/16/16 08:05 ALT 29 IU/L (10-60) 10/16/16 08:05 Alkaline Phosphatase 77 IU/L (42-121) 10/16/16 08:05 Total Protein 7.3 g/dL (6.7-8.2) 10/16/16 08:05 Albumin 4.3 g/dL (3.2-5.5) 10/16/16 08:05 Globulin 3.0 g/dL (2.1-4.2) 10/16/16 08:05 Albumin/Globulin Ratio 1.4 (1.0-2.2) 10/16/16 08:05 Amylase 25 U/L (28-100) L 10/11/16 21:35 Lipase 18 U/L (22-51) L 10/11/16 21:35 Urine Color YELLOW 10/12/16 18:20 Urine Clarity CLEAR (CLEAR) 10/12/16 18:20 Urine pH 6.5 PH (5.0-7.5) 10/12/16 18:20 Ur Specific [place] 1.010 (1.002-1.030) 10/12/16 18:20 Urine Protein NEGATIVE mg/dL (NEGATIVE) 10/12/16 18:20 Urine Glucose (UA) NEGATIVE mg/dL (NEGATIVE) 10/12/16 18:20 Urine Ketones TRACE mg/dL (NEGATIVE) 10/12/16 18:20 Urine Occult Blood NEGATIVE (NEGATIVE) 10/12/16 18:20 Urine Nitrite NEGATIVE (NEGATIVE) 10/12/16 18:20 Urine Bilirubin NEGATIVE (NEGATIVE) 10/12/16 18:20 Urine Urobilinogen 0.2 (NORMAL) E.U./dL (NORMAL) 10/12/16 18:20 Ur Leukocyte Esterase NEGATIVE (NEGATIVE) 10/12/16 18:20 Ur Microscopic Review NOT INDICATED 10/12/16 18:20 Urine Culture Comments NOT INDICATED 10/12/16 18:20 Stool Leukocytes, Qual NEGATIVE (Negative) 10/11/16 09:30 Stl Giardia Antigen TNP 10/11/16 09:30 Urine Opiates Screen POSITIVE (NEGATIVE) H 10/11/16 23:13 Ur Oxycodone Screen POSITIVE (NEGATIVE) H 10/11/16 23:13 Urine Methadone Screen NEGATIVE (NEGATIVE) 10/11/16 23:13 Ur Propoxyphene Screen NEGATIVE (NEGATIVE) 10/11/16 23:13 Ur Barbiturates Screen NEGATIVE (NEGATIVE) 10/11/16 23:13 Ur Tricyclics Screen NEGATIVE (NEGATIVE) 10/11/16 23:13 Ur Phencyclidine Scrn NEGATIVE (NEGATIVE) 10/11/16 23:13 Ur Amphetamine Screen NEGATIVE (NEGATIVE) 10/11/16 23:13 U Methamphetamines Scrn NEGATIVE (NEGATIVE) 10/11/16 23:13 U Benzodiazepines Scrn NEGATIVE (NEGATIVE) 10/11/16 23:13 Urine Cocaine Screen NEGATIVE (NEGATIVE) 10/11/16 23:13 U Cannabinoids Screen POSITIVE (NEGATIVE) H 10/11/16 23:13 Cryptosporidium Ag TNP 10/11/16 09:30 H. pylori IgG Antibody Negative (Negative) 10/11/16 21:35
--- NOTE | 2016-10-16 14:45 | DISCHARGE SUMMARY ---
"Discharge Summary Admit Date: 10/15/16 Code Status: Attempt Resuscitation Condition at Discharge: Fair Discharge Disposition: 01 Home, Self Care - CONSULTS | PROCEDURES Consultations: Surgery Procedures: EGD Colonoscopy Diagnostic Laparoscopy - HOSPITAL COURSE Hospital Course: (1) Hemoperitoneum Assessment/Plan: Patient was having pain last night and became hypotensive and lethargic then passed out. Was sent for CTA thorax with concern for possible PE. CT however revealed hemoperioneum. Patients Hb checked and it had fallen from 14 to 11.9 then to 10.5 Thought to possibly be a complication of diagnostic lap Surgery called and recommended monitoring Hb no need for evacuation at this point Patient continues to have pain in his abdomen, chest and left shoulder Evaluated for Chest pain with CXR, trop and EKG all were negative Surgery wants to continue to monitor Hb and vitals If patient becomes unstable will need to go back to OR (2) Abdominal pain Qualifiers: Abdominal location: generalized Qualified Code(s): R10.84 - Generalized abdominal pain Assessment/Plan: Unspecified abdominal pain with nausea, vomiting and diarrhea Possible etiology could be gastroparesis secondary to poorly controlled dm, mesenteric ischemia, gastric or duodenal ulcer, gastritis, gastroenteritis, cannabis induced cyclic vomiting, SBO, mass, IBD, IBS or psychosomatic pain Pain still not improved as patient continues to require pain medication around the clock Abd is soft with diffuse severe tenderness on exam Stool occult blood negative Patient had pancreatitis at [facility] 1 week ago and underwent 2 CT scans both negative, lipase normal on presentation here CTA negative for ischemia or aneurysms Stool cx negative IVFs Improved nausea but pain persistent despite pain meds around the clock Surgery consulted EGD and colonoscopy negative, biopsies also negative Patient went for diagnostic laparoscopy this morning and only finding was adhesions but no obstruction. Patient did undergo lysis of adhesions Patient developed hemoperitoneum post op and is now having abdominal pain from that Previous abd pain has resolved For previous abd pain will need to follow up with Dr España in [address] or MRI enterography (3) Hypokalemia Assessment/Plan: Resolved (4) Diabetes Qualifiers: Diabetes mellitus type: type 2 Assessment/Plan: HbA1C is 11.4 Lantus 10 units subQ Novolog SS TID Full liquid diet Blood sugars are very well controlled in the hospital Monitor glucose (5) Hypertension Qualifiers: Hypertension type: essential hypertension Qualified Code(s): I10 - Essential (primary) hypertension Assessment/Plan: Continue home dose of lisinopril Controlled Monitor BP closely given bleeding hold lisinopril if low (6) Hyperlipidemia Assessment/Plan: Stable On statin (7) Peripheral Neuropathy Assessment/Plan: Patient has peripheral neuropathy secondary to diabetes On gabapentin (8) Prophylactic use of low molecular weight heparin for venous thromboembolism Assessment/Plan: On lovenox - ALLERGIES Allergies/Adverse Reactions: Allergies Allergy/AdvReac Type Severity Reaction Status Date / Time cinnamon Allergy Unknown Verified 10/05/16 20:53 pregabalin [From Lyrica] Allergy Unknown Verified 10/05/16 20:53 - MEDICATIONS Home Medications: Ambulatory Orders Medication Instructions Recorded Confirmed Atorvastatin [Lipitor] 10 mg PO QPM 08/18/16 10/12/16 Cyclobenzaprine [Flexeril] 10 mg PO TID PRN 08/18/16 10/12/16 Gabapentin 300 mg PO QID 08/18/16 10/12/16 Insulin Aspart [NovoLOG] 10 units SQ TID 08/18/16 10/12/16 Lisinopril 5 mg PO DAILY 08/18/16 10/11/16 Insulin Glargine [Lantus] 25 unit SQ QPM 30 Days 09/18/16 10/12/16 SITagliptin [Januvia] 100 mg PO DAILY 09/22/16 10/12/16 - LABS Result Diagrams: 10/17/16 18:29 10/16/16 22:50 - DIAGNOSTIC IMAGING Diagnostic Imaging Results: Final report reviewed"
[2016-10-16] MEDS ORDERED: KETOROLAC 30 MG/ML VIAL IVP STA (15:07)
[2016-10-16] MEDS ORDERED: ACETAMINOPHEN 325 MG TABLET PO PRN (15:08)
[2016-10-16] MEDS ORDERED: ACETAMINOPHEN 500 MG TABLET PO STA (15:08)
[2016-10-16] MEDS: METOCLOPRAMIDE 10 MG/2 ML VIAL IVP PRN (16:56)
[2016-10-16] MEDS: ATORVASTATIN 10 MG TABLET PO SCH (19:59)
[2016-10-16] MEDS: INSULIN GLARGINE 300 UNIT/3 ML PEN SUBQ SCH (20:00)
[2016-10-16 23:10] LABS: ALBUMIN/GLOBULIN RATIO 1.3 (1.0-2.2); BILIRUBIN,TOTAL 0.8 mg/dL (0.2-1.0); CALCIUM 8.7 mg/dL (8.5-10.3); CREATININE 0.8 mg/dL (0.6-1.2); POTASSIUM 3.8 mmol/L (3.5-5.0); TOTAL PROTEIN 5.9 g/dL (6.7-8.2)
--- NOTE | 2016-10-16 23:25 | XRAY Preliminary Report ---
Exam: XR Chest 1 View IMPRESSION: No acute pulmonary process. [facility] SITE ID: [id number]
--- NOTE | 2016-10-16 23:28 | XRAY Report ---
EXAM: CHEST RADIOGRAPHY EXAM DATE: 10/16/2016 11:03 PM. CLINICAL HISTORY: Sudden syncope, right chest pain, right neck pain. COMPARISON: None. TECHNIQUE: 1 view. FINDINGS: Lungs/Pleura: No focal opacities evident. No pleural effusion. No pneumothorax. Mediastinum: Within exam limitations, cardiomediastinal contour is normal. Other: Postoperative changes noted in the lower cervical spine. Degenerative changes are present in b oth acromioclavicular joints. IMPRESSION: No acute pulmonary process. [facility] Referring Provider Line: [phone] SITE ID: [id number]
[2016-10-16 23:32] LABS: BASOPHILS % (AUTO) 0.3 %; EOSINOPHILS % (AUTO) 0.1 %; HCT - HEMATOCRIT 35.8 % (42.0-52.0); HGB - HEMOGLOBIN 11.9 g/dL (14.0-18.0); LYMPHOCYTES # (AUTO) 1.2 10^3/uL (1.5-3.5); LYMPHOCYTES % (AUTO) 10.6 %; MEAN CORPUSCULAR HEMOGLOBIN 30.9 pg (27.0-31.0); MEAN CORPUSCULAR HGB CONC 33.3 g/dL (32.0-36.0); MEAN PLATELET VOLUME 10.3 fL (7.4-11.4); MONOCYTES # (AUTO) 1.1 10^3/uL (0.0-1.0); MONOCYTES % (AUTO) 9.7 %; NEUTROPHILS # (AUTO) 8.7 10^3/uL (1.5-6.6); NEUTROPHILS % (AUTO) 79.3 %; RED BLOOD COUNT 3.85 10^6/uL (4.70-6.10); RED CELL DISTRIBUTION WIDTH 13.4 % (12.0-15.0)
[2016-10-16 23:44] LABS: PLATELET MORPHOLOGY NORMAL APPEARANCE (NORMAL)
[2016-10-16 23:45] LABS: PLATELET ESTIMATE, MANUAL NORMAL (130-450,000) (NORMAL)
--- NOTE | 2016-10-17 00:01 | PROVIDER PROGRESS NOTE ---
Language Therapist Note - Language Therapist Note Language Therapist Note: 10/16/16 23:53 I was called to see the patient at ~22:30 for sudden LOC. He has been uncomfortable all day from the abd pain at the incision from his surgery today but tolerating clear liquids. Earlier this shift ~19:30 he had a numb penis. We figured out the ice pack he was using covered suprapubic area and penis so that was why it was numb. He was also c/o right shoulder pain. Then at 22: 25 he had sudden LOC while speaking to aide and RN. vitals are normal. O2 saturation is normal. He responded to sternal rub with "ow", "stop doing that" then his eyes would roll back and he would slump his head over. I would do sternal rub and he would immediately respond, ask me to stop, to then only fall unconscious again. Meds reviewed and he had oral oxycodone but no IV opiates. As he lay with eyes closed and listened to me speak to RN, I asked if there was any way he took something not ordered and he opened his eyes and stated "I don' t do things like that. I didn't take anything." on ROS he denied chest pain, palpitations, sob. still with abd pain. his right shoulder hurts to move and now pain is radiating from the shoulder to the back of his neck on the right side. he denies headache, blurred vision, unilateral arm or leg numbness or paralysis. denies urgency/grequency. Selected Entries 10/16/16 10/16/16 10/16/16 22:42 23:05 23:23 Temperature 36.8 C 36.5 C 36.5 C Heart Rate [ 64 76 98 Brachial] Respiratory 14 22 20 Rate Blood Pressure 110/58 L 101/68 110/72 [Left Brachial artery] O2 Saturation 99 97 98 Sedation scale 3-Responsive to 1-Arouses 0-Fully awake vigorous easily Active Medications Acetaminophen (Tylenol) 650 mg PO Q4HR PRN PRN Reason: Pain or Fever > 38C (100.4F) Atorvastatin Calcium (Lipitor) 10 mg PO QPM [facility] Last Admin: 10/16/16 19:59 Dose: 10 mg Calcium Carbonate/Glycine (Tums) 500 mg PO BID [facility] Last Admin: 10/16/16 20:00 Dose: 500 mg Gabapentin (Neurontin) 300 mg PO QID [facility] Last Admin: 10/16/16 19:59 Dose: 300 mg Hydrocortisone (Hydrocortisone) 1 applic TOP BID [facility] Last Admin: 10/16/16 19:59 Dose: 1 applic Hyoscyamine (Levsin) 0.125 mg SL AC [facility] Last Admin: 10/16/16 15:45 Dose: 0.125 mg Famotidine (Pepcid 20 Mg/50 Ml) 50 mls @ 100 mls/hr IV BID [facility] Last Admin: 10/16/16 20:02 Dose: 100 mls/hr Sodium Chloride (Normal Saline 0.9%) 1,000 mls @ 50 mls/hr IV .Q20H [facility] Last Admin: 10/16/16 14:14 Dose: 50 mls/hr Insulin Aspart (Novolog) 1 - 9 unit SUBQ 0800,1200,1700,2100 [facility] PRN Reason: Protocol Last Admin: 10/16/16 20:01 Dose: 9 unit Insulin Glargine (Lantus Solostar) 10 unit SUBQ QPM [facility] Last Admin: 10/16/16 20:00 Dose: 10 unit Lisinopril (Zestril) 5 mg PO DAILY [facility] Last Admin: 10/16/16 08:25 Dose: 5 mg Metoclopramide HCl (Reglan Inj) 5 mg IVP Q6HR PRN PRN Reason: Abdominal Pain Last Admin: 10/16/16 16:56 Dose: 5 mg Ondansetron HCl (Zofran Inj) 4 mg IVP Q6HR PRN PRN Reason: Nausea / Vomiting Last Admin: 10/15/16 18:12 Dose: 4 mg Oxycodone HCl (Roxicodone) 5 mg PO Q4HR PRN PRN Reason: PAIN Last Admin: 10/16/16 22:11 Dose: 5 mg Polyethylene Glycol (Miralax) 17 gm PO DAILY [facility] Last Admin: 10/16/16 08:25 Dose: Not Given Sodium Chloride (Normal Saline Flush 0.9%) 10 ml IVP PRN PRN PRN Reason: NEEDED PER PROVIDER ORDERS Last Admin: 10/14/16 09:55 Dose: 10 ml Sodium Chloride (Normal Saline Flush 0.9%) 10 ml IVP Q8HR [facility] Last Admin: 10/16/16 22:25 Dose: Not Given Zolpidem Tartrate (Ambien) 5 mg PO QPM PRN PRN Reason: Insomnia Last Admin: 10/15/16 22:10 Dose: 5 mg Atorvastatin [Lipitor] 10 mg PO QPM 08/18/16 Cyclobenzaprine [Flexeril] 10 mg PO TID PRN 08/18/16 Gabapentin 300 mg PO QID 08/18/16 Insulin Aspart [NovoLOG] 10 units SQ TID 08/18/16 Lisinopril 5 mg PO DAILY 08/18/16 SITagliptin [Januvia] 100 mg PO DAILY 09/22/16 Exam: Vitals reviewed Thin, unconscious white male who looks older than stated age, very pale and diaphoretic. With sternal rub, opens eye and answers questions. complaining of right neck and right AC shoulder pain. ENT: PERRLA. EOMI.no facial asymmetry. speech nml. Neck: supple, no bruits, masses. right neck hurts to turn to the right, no redness Chest: no deformity. equal breath sounds. no tachypnea. respirations are slow, shallow, unlabored. No wheezing, no crackles COR: RRR. PMI nml. no murmurs ABD: soft, NABS, tender over incision Ext: soft calves, Abelardo negative, no edema, no warmth, FROM of knees, hips, elbows and left shoulder. doesn't want to move right shoulder bc it hurts. Neuro: alert and oriented when conscious. Episodes last 1-2 minutes and no tremors, no seizures. no focal deficits. spontaneous movmeent of limbs especially with the sternal rub. Laboratory Tests 10/16/16 10/16/16 10/16/16 08:05 20:50 20:50 WBC 6.1 11.0 H Hgb 14.6 11.9 L Sodium 136 Potassium 3.8 BUN 9 Creatinine 0.8 Glucose 350 H Calcium 8.7 Troponin I 10/16/16 20:50 WBC Hgb Sodium Potassium BUN Creatinine Glucose Calcium Troponin I < 0.04 A/P syncope: differential in a postop patient arrhythmia-tele says sinus, EKG says sinus and no acute changes. K nml. valvular heart disease-no murmur. orthostasis from bleeding-no tachycardia. Hgb stable. drugs-getting oral opiates and he denies using anything else. recheck MUDS. Intrathoracic abnormalty=CXR negative. seizure-no. witnessed event and no tonic clonic movement. will order CTA for PE. consider transfer to ICU if episodes continue. 45 minutes spent in acute critical mangement and several exams. Addendum: CT negative for PE but radiology found large hemoperitoneum. I have notified Dr. España and he would like q4 hour vitals and sequential CBC. He has ordered Type and Cross. Will see patient this am to evaluate for OR.
[2016-10-17] MEDS ORDERED: IOPAMIDOL-300 100 ML VIAL IVP ONE (00:38)
--- NOTE | 2016-10-17 02:38 | CT Preliminary Report ---
Exam: CT Chest Angio (PE) IMPRESSION: 1. No pulmonary emboli seen. 2. Mild cardiomegaly. 3. Hemoperitoneum. 4. Free intraperitoneal air, presumably related to recent surgery. [facility] The above critical findings were discussed with Dr. Dietz by Dr. Ian Bruce at 02:34 hrs on 10/02 09/18. SITE ID: [id number]
--- NOTE | 2016-10-17 02:41 | CT Report ---
EXAM: CT ANGIOGRAM CHEST EXAM DATE: 10/17/2016 12:45 AM. CLINICAL HISTORY: Sudden syncope, right neck pain, right shoulder pain. COMPARISON: None. TECHNIQUE: Routine helical imaging was performed through the chest in the pulmonary arterial phase. I V Contrast: Nonionic. Reconstructions: Coronal 3-D MIP reconstructions.Sagittal and coronal. In accordance with CT protocol optimization, one or more of the following dose reduction techniques w ere utilized for this exam: automated exposure control, adjustment of mA and/or KV based on patient s ize, or use of iterative reconstructive technique. FINDINGS: Pulmonary Arteries: Diagnostic quality: Adequate through the segmental arteries. No evidence for acute or chronic pulmona ry emboli. No evidence of right heart strain. Lungs/Pleura: Bibasilar atelectasis. No significant pleural effusion. No pneumothorax. Mediastinum: Mild cardiomegaly. No lymphadenopathy. Thoracic Aorta: Ascending aorta measures 3.8 x 3.8 cm. No aortic dissection. Upper Abdomen: Hemoperitoneum. Free intraperitoneal air, presumably due to recent surgery. Other: None. IMPRESSION: 1. No pulmonary emboli seen. 2. Mild cardiomegaly. 3. Hemoperitoneum. 4. Free intraperitoneal air, presumably related to recent surgery. [facility] The above critical findings were discussed with Dr. Dietz by Dr. Ian Bruce at 02:34 hrs on 10/02 09/18. Referring Provider Line: [phone] SITE ID: [id number]
[2016-10-17 03:39] LABS: BASOPHILS % (AUTO) 0.4 %; EOSINOPHILS % (AUTO) 0.2 %; HCT - HEMATOCRIT 30.9 % (42.0-52.0); HGB - HEMOGLOBIN 10.5 g/dL (14.0-18.0); LYMPHOCYTES # (AUTO) 1.4 10^3/uL (1.5-3.5); LYMPHOCYTES % (AUTO) 16.4 %; MEAN CORPUSCULAR HEMOGLOBIN 31.3 pg (27.0-31.0); MEAN CORPUSCULAR VOLUME 91.9 fL (80.0-94.0); MEAN PLATELET VOLUME 10.1 fL (7.4-11.4); NEUTROPHILS # (AUTO) 5.9 10^3/uL (1.5-6.6); RED BLOOD COUNT 3.36 10^6/uL (4.70-6.10); RED CELL DISTRIBUTION WIDTH 13.4 % (12.0-15.0); UNCORRECTED WHITE BLOOD COUNT 8.3 x10^3/uL; WHITE BLOOD COUNT 8.3 x10^3/uL (4.8-10.8)
[2016-10-17] MEDS: SODIUM CHLORIDE FLUSH 0.9% 10 ML SYRINGE IVP SCH ×3 (05:31→20:55)
[2016-10-17 05:51] LABS: HGB - HEMOGLOBIN 10.3 g/dL (14.0-18.0)
[2016-10-17] MEDS: HYOSCYAMINE SL 0.125 MG TABLET SL SCH ×3 (06:08→17:04)
[2016-10-17] MEDS ORDERED: SODIUM CHLORIDE 0.9% 500 ML IV SCH ×2 (06:15→07:30)
[2016-10-17] MEDS: SODIUM CHLORIDE 0.9% 1,000 ML IV SCH ×2 (06:35→13:55)
[2016-10-17] MEDS: INSULIN REGULAR HUMAN 100 UNIT/1 ML 10 ML MDV SUBQ SCH ×2 (07:44→12:03)
[2016-10-17 08:00] LABS: HCT - HEMATOCRIT 30.4 % (42.0-52.0); HGB - HEMOGLOBIN 10.4 g/dL (14.0-18.0)
[2016-10-17 08:09] LABS: INR 1.2 (0.8-1.2); PT - PROTHROMBIN TIME 12.9 secs (9.9-12.6)
[2016-10-17 08:16] LABS: PARTIAL THROMBOPLASTIN TIME 26.8 secs (24.9-33.3)
[2016-10-17] MEDS: FAMOTIDINE 20 MG/50 ML 50 ML IV SCH ×2 (08:51→20:46)
[2016-10-17] MEDS: POLYETHYLENE GLYCOL 3350 17 GM PACKET PO SCH (09:27)
[2016-10-17] MEDS: oxyCODONE 5 MG TABLET PO PRN ×3 (09:55→22:33)
[2016-10-17] MEDS: GABAPENTIN 300 MG CAPSULE PO SCH ×4 (09:55→20:48)
[2016-10-17] MEDS: LISINOPRIL 5 MG TABLET PO SCH (09:55)
[2016-10-17] MEDS: CALCIUM CARBONATE CHEW 500 MG TABLET PO SCH ×2 (09:55→20:48)
[2016-10-17] MEDS: HYDROCORTISONE 1% OINTMENT 28 GM TUBE TOP SCH ×2 (10:06→20:49)
[2016-10-17] MEDS: METOCLOPRAMIDE 10 MG/2 ML VIAL IVP PRN ×2 (11:41→18:18)
[2016-10-17 12:29] LABS: HCT - HEMATOCRIT 30.2 % (42.0-52.0); HGB - HEMOGLOBIN 10.3 g/dL (14.0-18.0)
[2016-10-17] MEDS: MORPHINE 2 MG/ML SYRINGE IVP PRN ×2 (13:02→20:55)
--- NOTE | 2016-10-17 16:27 | XRAY Preliminary Report ---
Exam: XR Chest 1 View IMPRESSION: Elevated right hemidiaphragm, otherwise unremarkable single view chest. [facility] SITE ID: [id number]
--- NOTE | 2016-10-17 16:30 | XRAY Report ---
EXAM: CHEST RADIOGRAPHY EXAM DATE: 10/17/2016 03:46 PM. CLINICAL HISTORY: Chest pain since yesterday. COMPARISON: 10/16/2016. TECHNIQUE: 1 view. FINDINGS: Lungs/Pleura: No focal opacities evident. No pleural effusion. No pneumothorax. Mediastinum: Within exam limitations, cardiomediastinal contour is normal. Other: Stable elevation of the right hemidiaphragm. Stable degenerative changes of the acromioclavicu lar joints, otherwise no bony abnormalities noted. IMPRESSION: Elevated right hemidiaphragm, otherwise unremarkable single view chest. [facility] Referring Provider Line: [phone] SITE ID: [id number]
[2016-10-17] MEDS: INSULIN ASPART 300 UNIT/3 ML PEN SUBQ SCH ×2 (17:03→20:55)
[2016-10-17 18:38] LABS: HGB - HEMOGLOBIN 9.6 g/dL (14.0-18.0)
--- NOTE | 2016-10-17 18:44 | PROVIDER PROGRESS NOTE ---
Assessment/Plan - Problem List (1) Hemoperitoneum Assessment/Plan: Patient was having pain last night and became hypotensive and lethargic then passed out. Was sent for CTA thorax with concern for possible PE. CT however revealed hemoperioneum. Patients Hb checked and it had fallen from 14 to 11.9 then to 10.5 Thought to possibly be a complication of diagnostic lap Surgery called and recommended monitoring Hb no need for evacuation at this point Patient continues to have pain in his abdomen, chest and left shoulder Evaluated for Chest pain with CXR, trop and EKG all were negative Surgery wants to continue to monitor Hb and vitals If patient becomes unstable will need to go back to OR (2) Abdominal pain Qualifiers: Abdominal location: generalized Qualified Code(s): R10.84 - Generalized abdominal pain Assessment/Plan: Unspecified abdominal pain with nausea, vomiting and diarrhea Possible etiology could be gastroparesis secondary to poorly controlled dm, mesenteric ischemia, gastric or duodenal ulcer, gastritis, gastroenteritis, cannabis induced cyclic vomiting, SBO, mass, IBD, IBS or psychosomatic pain Pain still not improved as patient continues to require pain medication around the clock Abd is soft with diffuse severe tenderness on exam Stool occult blood negative Patient had pancreatitis at [facility] 1 week ago and underwent 2 CT scans both negative, lipase normal on presentation here CTA negative for ischemia or aneurysms Stool cx negative IVFs Improved nausea but pain persistent despite pain meds around the clock Surgery consulted EGD and colonoscopy negative, biopsies also negative Patient went for diagnostic laparoscopy this morning and only finding was adhesions but no obstruction. Patient did undergo lysis of adhesions Patient developed hemoperitoneum post op and is now having abdominal pain from that Previous abd pain has resolved For previous abd pain will need to follow up with Dr España in [address] or MRI enterography (3) Hypokalemia Assessment/Plan: Resolved (4) Diabetes Qualifiers: Diabetes mellitus type: type 2 Assessment/Plan: HbA1C is 11.4 Lantus 10 units subQ Novolog SS TID Full liquid diet Blood sugars are very well controlled in the hospital Monitor glucose (5) Hypertension Qualifiers: Hypertension type: essential hypertension Qualified Code(s): I10 - Essential (primary) hypertension Assessment/Plan: Continue home dose of lisinopril Controlled Monitor BP closely given bleeding hold lisinopril if low (6) Hyperlipidemia Assessment/Plan: Stable On statin (7) Peripheral Neuropathy Assessment/Plan: Patient has peripheral neuropathy secondary to diabetes On gabapentin (8) Prophylactic use of low molecular weight heparin for venous thromboembolism Assessment/Plan: On lovenox - Current Meds Current Meds: Current Medications Generic Name Dose Route Start Last Admin Trade Name Freq PRN Reason Stop Dose Admin Atorvastatin Calcium 10 mg 10/14/16 21:00 10/16/16 19:59 Lipitor PO 10 mg QPM ESTHER Administration Calcium Carbonate/Glycine 500 mg 10/14/16 09:00 10/17/16 09:55 Tums PO 500 mg BID ESTHER Administration Gabapentin 300 mg 10/15/16 10:40 10/17/16 17:03 Neurontin PO 300 mg QID ESTHER Administration Hydrocortisone 1 applic 10/14/16 09:00 10/17/16 10:06 Hydrocortisone TOP 1 applic BID ESTHER Administration Hyoscyamine 0.125 mg 10/12/16 07:00 10/17/16 17:04 Levsin SL 0.125 mg AC ESTHER Administration Famotidine 50 mls @ 100 mls/hr 10/11/16 23:45 10/17/16 08:51 Pepcid 20 Mg/50 Ml IV 100 mls/hr BID ESTHER Administration Sodium Chloride 1,000 mls @ 90 mls/hr 10/17/16 06:05 10/17/16 13:55 Normal Saline 0.9% IV 90 mls/hr .Q11H7M ESTHER Administration Insulin Aspart 1 - 5 unit 10/17/16 17:00 10/17/16 17:03 Novolog SUBQ 3 unit 0800,1200,1700,2100 ESTHER Administration Protocol Insulin Glargine 10 unit 10/12/16 21:00 10/16/16 20:00 Lantus Solostar SUBQ 10 unit QPM ESTHER Administration Lisinopril 5 mg 10/15/16 09:00 10/17/16 09:55 Zestril PO 5 mg DAILY ESTHER Administration Metoclopramide HCl 5 mg 10/11/16 23:34 10/17/16 18:18 Reglan Inj IVP 5 mg Q6HR PRN Administration Abdominal Pain Morphine Sulfate 2 mg 10/17/16 10:56 10/17/16 13:02 Morphine IVP 2 mg Q2HR PRN Administration PAIN Ondansetron HCl 4 mg 10/11/16 23:31 10/15/16 18:12 Zofran Inj IVP 4 mg Q6HR PRN Administration Nausea / Vomiting Oxycodone HCl 5 mg 10/15/16 10:03 10/17/16 18:17 Roxicodone PO 5 mg Q4HR PRN Administration PAIN Polyethylene Glycol 17 gm 10/12/16 09:00 10/17/16 09:27 Miralax PO Not Given DAILY ESTHER Sodium Chloride 10 ml 10/11/16 23:31 10/14/16 09:55 Normal Saline Flush 0.9% IVP 10 ml PRN PRN Administration NEEDED PER PROVIDER ORDERS Sodium Chloride 10 ml 10/12/16 06:00 10/17/16 14:21 Normal Saline Flush 0.9% IVP Not Given Q8HR ESTHER Zolpidem Tartrate 5 mg 10/14/16 00:08 10/15/16 22:10 Ambien PO 5 mg QPM PRN Administration Insomnia - Lab Result Lab results reviewed: Yes Fish Bone Diagrams: 10/17/16 18:29 10/16/16 22:50 - EKG Results EKG Interpreted Independently: Yes - Diagnostic Imaging Results Diagnostic Imaging Results: Final report reviewed - Additional Planning Condition/Complexity: Guarded My Orders: My Active Orders 10/17/16 07:32 Initiate Hypoglycemia Protocol [RC] .protocol 10/17/16 10:56 Morphine Inj [Morphine] 2 mg IVP Q2HR PRN 10/17/16 15:34 ALPRAZolam [Xanax] 0.25 mg PO Q6HR PRN 10/17/16 16:17 Blood Glucose Checks - Eating [RC] 0800,1200,1700,2100 Initiate Hypoglycemia Protocol [RC] .protocol 10/17/16 17:00 Insulin Aspart [NovoLOG] 1 - 5 unit SUBQ 0800,1200,1700,2100 Consult/Specialty: Surgery Plan Discussed with:: Patient Time Spent: Greater than 60 minutes Subjective - Subjective Patient Reports: Abdominal Pain, Chest Pain, Dizzines, Pain, Other (anxious, uncomfortable) Nursing Reports: Pain Objective Vital Signs: Vital Signs - 24 hr 10/16/16 10/16/16 10/16/16 19:34 22:42 23:05 Temperature 36.5 C 36.8 C 36.5 C Heart Rate [ 18 L 64 76 Brachial] Respiratory 128 H 14 22 Rate Blood Pressure 137/83 H 110/58 L 101/68 [Left Brachial artery] O2 Saturation 95 99 97 10/16/16 10/16/16 10/17/16 23:23 23:50 00:41 Temperature 36.5 C 36.7 C Heart Rate [ 98 84 85 Brachial] Respiratory 20 18 16 Rate Blood Pressure 110/72 106/73 128/82 H [Left Brachial artery] O2 Saturation 98 95 97 10/17/16 10/17/16 10/17/16 01:43 02:41 03:22 Temperature 36.5 C Heart Rate [ 89 86 Brachial] Respiratory 16 16 18 Rate Blood Pressure 102/71 109/73 107/73 [Left Brachial artery] O2 Saturation 96 96 98 10/17/16 10/17/16 10/17/16 04:07 04:41 05:20 Temperature 36.4 C L 36.4 C L Heart Rate [ 98 86 82 Brachial] Respiratory 18 18 18 Rate Blood Pressure 109/70 99/67 89/55 L [Left Brachial artery] O2 Saturation 99 96 96 10/17/16 10/17/16 10/17/16 05:37 05:56 06:40 Temperature 36.4 C L Heart Rate [ 93 85 100 Brachial] Respiratory 18 20 Rate Blood Pressure 91/60 95/64 112/75 [Left Brachial artery] O2 Saturation 95 97 97 10/17/16 10/17/16 10/17/16 08:27 11:33 13:00 Temperature 36.7 C 36.8 C 36.9 C Heart Rate [ 85 84 90 Brachial] Respiratory 18 16 18 Rate Blood Pressure 122/82 H 132/87 H 121/76 [Left Brachial artery] O2 Saturation 100 98 96 10/17/16 10/17/16 10/17/16 14:00 16:01 17:40 Temperature 36.5 C 36.7 C Heart Rate [ 84 97 88 Brachial] Respiratory 18 22 18 Rate Blood Pressure 117/73 117/71 112/74 [Left Brachial artery] O2 Saturation 98 98 10/17/16 18:17 Temperature Heart Rate [ 89 Brachial] Respiratory Rate Blood Pressure 117/77 [Left Brachial artery] O2 Saturation Oxygen O2 Source Room air I&O (Last 24 Hrs): Intake and Output Totals x24h 10/15/16 10/16/16 10/17/16 23:59 23:59 23:59 Intake Total 3701 1822 2898 Output Total 7038 2613 Balance 3709 385 4936 General: Alert, Oriented x3, Cooperative, Moderate distress (pain) HEENT: Atraumatic, PERRLA, EOMI, Other (dry mucus membranes) Neck: Supple, No JVD, No thyromegaly, +2 carotid pulse wo bruit, No LAD Lymphatic: no adenopathy Neuro: Alert, Non Focal, CN 2-12 Grossly Intact, Oriented Times 3 Cardiovascular: Regular rate, Normal S1, Normal S2, No murmurs Respiratory: Chest non-tender, No respiratory distress, Breath sounds nml, Rales (bases) Abdomen: Soft, Other (tenderness mostly near surgical sites) Extremities: No clubbing, No cyanosis, No edema, Normal pulses Skin: No rashes, No breakdown, No significant lesion - Results Results: Laboratory Results WBC 8.3 x10^3/uL (4.8-10.8) 10/17/16 03:32 RBC 3.36 10^6/uL (4.70-6.10) L 10/17/16 03:32 Hgb 9.6 g/dL (14.0-18.0) L 10/17/16 18:29 Hct 29.0 % (42.0-52.0) L 10/17/16 18:29 MCV 91.9 fL (80.0-94.0) 10/17/16 03:32 MCH 31.3 pg (27.0-31.0) H 10/17/16 03:32 MCHC 34.0 g/dL (32.0-36.0) 10/17/16 03:32 RDW 13.4 % (12.0-15.0) 10/17/16 03:32 Plt Count 152 10^3/uL (130-450) 10/17/16 03:32 MPV 10.1 fL (7.4-11.4) 10/17/16 03:32 Neut # 5.9 10^3/uL (1.5-6.6) 10/17/16 03:32 Lymph # 1.4 10^3/uL (1.5-3.5) L 10/17/16 03:32 [place] # 1.0 10^3/uL (0.0-1.0) 10/17/16 03:32 Eos # 0.0 10^3/uL (0.0-0.7) 10/17/16 03:32 Baso # 0.0 10^3/uL (0.0-0.1) 10/17/16 03:32 Absolute Nucleated RBC 0.00 x10^3/uL 10/17/16 03:32 Nucleated RBCs 0.0 /100WBC 10/17/16 03:32 Manual Slide Review Indicated 10/16/16 22:50 Platelet Estimate NORMAL (130-450,000) (NORMAL) 10/16/16 22:50 Platelet Morphology NORMAL APPEARANCE (NORMAL) 10/16/16 22:50 ESR 5 mm/Hr (0-20) 10/14/16 05:39 PT 12.9 secs (9.9-12.6) H 10/17/16 07:53 INR 1.2 (0.8-1.2) 10/17/16 07:53 APTT 26.8 secs (24.9-33.3) 10/17/16 07:53 VBG pH 7.319 (7.31-7.41) 10/14/16 05:39 Ionized Calcium 1.13 mmol/L (1.15-1.33) L 10/14/16 05:39 Sodium 136 mmol/L (135-145) 10/16/16 22:50 Potassium 3.8 mmol/L (3.5-5.0) 10/16/16 22:50 Chloride 101 mmol/L (101-111) 10/16/16 22:50 Carbon Dioxide 26 mmol/L (21-32) 10/16/16 22:50 Anion Gap 9.0 (6-13) 10/16/16 22:50 BUN 9 mg/dL (6-20) 10/16/16 22:50 Creatinine 0.8 mg/dL (0.6-1.2) 10/16/16 22:50 Estimated GFR (MDRD) 101 (>89) 10/16/16 22:50 Glucose 350 mg/dL (70-100) H 10/16/16 22:50 POC Whole Bld Glucose 273 mg/dL (70 - 100) H 10/17/16 16:39 Glycated Hemoglobin 11.4 % (4.6-6.2) H 10/11/16 21:35 Estim Average Glucose 280 (70-100) H 10/11/16 21:35 Calcium 8.7 mg/dL (8.5-10.3) 10/16/16 22:50 Ionized Calcium NO 10/16/16 08:05 Phosphorus 3.8 mg/dL (2.5-4.6) 10/16/16 08:05 Magnesium 1.8 mg/dL (1.7-2.8) 10/16/16 08:05 Total Bilirubin 0.8 mg/dL (0.2-1.0) 10/16/16 22:50 AST 20 IU/L (10-42) 10/16/16 22:50 ALT 24 IU/L (10-60) 10/16/16 22:50 Alkaline Phosphatase 61 IU/L (42-121) 10/16/16 22:50 Troponin I < 0.04 ng/mL (<0.49) 10/17/16 16:39 Total Protein 5.9 g/dL (6.7-8.2) L 10/16/16 22:50 Albumin 3.3 g/dL (3.2-5.5) 10/16/16 22:50 Globulin 2.6 g/dL (2.1-4.2) 10/16/16 22:50 Albumin/Globulin Ratio 1.3 (1.0-2.2) 10/16/16 22:50 Amylase 25 U/L (28-100) L 10/11/16 21:35 Lipase 18 U/L (22-51) L 10/11/16 21:35 Urine Color YELLOW 10/12/16 18:20 Urine Clarity CLEAR (CLEAR) 10/12/16 18:20 Urine pH 6.5 PH (5.0-7.5) 10/12/16 18:20 Ur Specific [place] 1.010 (1.002-1.030) 10/12/16 18:20 Urine Protein NEGATIVE mg/dL (NEGATIVE) 10/12/16 18:20 Urine Glucose (UA) NEGATIVE mg/dL (NEGATIVE) 10/12/16 18:20 Urine Ketones TRACE mg/dL (NEGATIVE) 10/12/16 18:20 Urine Occult Blood NEGATIVE (NEGATIVE) 10/12/16 18:20 Urine Nitrite NEGATIVE (NEGATIVE) 10/12/16 18:20 Urine Bilirubin NEGATIVE (NEGATIVE) 10/12/16 18:20 Urine Urobilinogen 0.2 (NORMAL) E.U./dL (NORMAL) 10/12/16 18:20 Ur Leukocyte Esterase NEGATIVE (NEGATIVE) 10/12/16 18:20 Ur Microscopic Review NOT INDICATED 10/12/16 18:20 Urine Culture Comments NOT INDICATED 10/12/16 18:20 Stool Leukocytes, Qual NEGATIVE (Negative) 10/11/16 09:30 Stl Giardia Antigen TNP 10/11/16 09:30 Urine Opiates Screen POSITIVE (NEGATIVE) H 10/17/16 03:47 Ur Oxycodone Screen POSITIVE (NEGATIVE) H 10/17/16 03:47 Urine Methadone Screen NEGATIVE (NEGATIVE) 10/17/16 03:47 Ur Propoxyphene Screen NEGATIVE (NEGATIVE) 10/17/16 03:47 Ur Barbiturates Screen NEGATIVE (NEGATIVE) 10/17/16 03:47 Ur Tricyclics Screen NEGATIVE (NEGATIVE) 10/17/16 03:47 Ur Phencyclidine Scrn NEGATIVE (NEGATIVE) 10/17/16 03:47 Ur Amphetamine Screen NEGATIVE (NEGATIVE) 10/17/16 03:47 U Methamphetamines Scrn NEGATIVE (NEGATIVE) 10/17/16 03:47 U Benzodiazepines Scrn NEGATIVE (NEGATIVE) 10/17/16 03:47 Urine Cocaine Screen NEGATIVE (NEGATIVE) 10/17/16 03:47 U Cannabinoids Screen POSITIVE (NEGATIVE) H 10/17/16 03:47 Cryptosporidium Ag TNP 10/11/16 09:30 H. pylori IgG Antibody Negative (Negative) 10/11/16 21:35 Blood Type A POSITIVE 10/17/16 03:32 Blood Type Recheck A POSITIVE 10/17/16 05:43 Antibody Screen NEGATIVE 10/17/16 03:32 Crossmatch IS Only See Detail 10/17/16 03:32
[2016-10-17] MEDS: ATORVASTATIN 10 MG TABLET PO SCH (20:48)
[2016-10-17] MEDS: INSULIN GLARGINE 300 UNIT/3 ML PEN SUBQ SCH (20:55)
[2016-10-17] MEDS ORDERED: CARBOXYMETHYLCELLULOSE OPHTH DROPS EACHEYE PRN (21:59)
[2016-10-18 00:30] LABS: BASOPHILS % (AUTO) 0.7 %; EOSINOPHILS # (AUTO) 0.2 10^3/uL (0.0-0.7); EOSINOPHILS % (AUTO) 2.6 %; HCT - HEMATOCRIT 27.1 % (42.0-52.0); LYMPHOCYTES # (AUTO) 1.8 10^3/uL (1.5-3.5); LYMPHOCYTES % (AUTO) 28.3 %; MEAN CORPUSCULAR HEMOGLOBIN 30.8 pg (27.0-31.0); MEAN CORPUSCULAR HGB CONC 33.2 g/dL (32.0-36.0); MEAN CORPUSCULAR VOLUME 92.8 fL (80.0-94.0); MEAN PLATELET VOLUME 9.7 fL (7.4-11.4); MONOCYTES # (AUTO) 0.6 10^3/uL (0.0-1.0); NEUTROPHILS # (AUTO) 3.7 10^3/uL (1.5-6.6); NEUTROPHILS % (AUTO) 58.4 %; RED BLOOD COUNT 2.92 10^6/uL (4.70-6.10); RED CELL DISTRIBUTION WIDTH 13.7 % (12.0-15.0); UNCORRECTED WHITE BLOOD COUNT 6.4 x10^3/uL; WHITE BLOOD COUNT 6.4 x10^3/uL (4.8-10.8)
[2016-10-18] MEDS: ZOLPIDEM 5 MG TABLET PO PRN (00:37)
[2016-10-18] MEDS: SODIUM CHLORIDE 0.9% 1,000 ML IV SCH ×2 (00:37→19:22)
[2016-10-18] MEDS: oxyCODONE 5 MG TABLET PO PRN ×3 (04:43→19:22)
[2016-10-18] MEDS: SODIUM CHLORIDE FLUSH 0.9% 10 ML SYRINGE IVP SCH ×3 (06:07→20:49)
[2016-10-18] MEDS: MORPHINE 2 MG/ML SYRINGE IVP PRN ×4 (06:10→13:39)
[2016-10-18] MEDS: HYOSCYAMINE SL 0.125 MG TABLET SL SCH ×3 (06:10→16:18)
[2016-10-18 06:23] LABS: BASOPHILS % (AUTO) 0.3 %; EOSINOPHILS # (AUTO) 0.2 10^3/uL (0.0-0.7); EOSINOPHILS % (AUTO) 3.3 %; HCT - HEMATOCRIT 27.3 % (42.0-52.0); MEAN CORPUSCULAR HEMOGLOBIN 31.1 pg (27.0-31.0); MEAN CORPUSCULAR HGB CONC 33.1 g/dL (32.0-36.0); MEAN CORPUSCULAR VOLUME 93.9 fL (80.0-94.0); MEAN PLATELET VOLUME 10.2 fL (7.4-11.4); MONOCYTES # (AUTO) 0.8 10^3/uL (0.0-1.0); MONOCYTES % (AUTO) 13.2 %; NEUTROPHILS # (AUTO) 2.8 10^3/uL (1.5-6.6); NEUTROPHILS % (AUTO) 48.2 %; RED BLOOD COUNT 2.91 10^6/uL (4.70-6.10); RED CELL DISTRIBUTION WIDTH 13.4 % (12.0-15.0); UNCORRECTED WHITE BLOOD COUNT 5.8 x10^3/uL; WHITE BLOOD COUNT 5.8 x10^3/uL (4.8-10.8)
[2016-10-18] MEDS: DOCUSATE SODIUM 250 MG CAPSULE PO SCH (08:21)
[2016-10-18] MEDS: GABAPENTIN 300 MG CAPSULE PO SCH ×4 (08:21→20:46)
[2016-10-18] MEDS: FAMOTIDINE 20 MG/50 ML 50 ML IV SCH ×2 (08:21→20:43)
[2016-10-18] MEDS: CALCIUM CARBONATE CHEW 500 MG TABLET PO SCH ×2 (08:21→20:43)
[2016-10-18] MEDS: POLYETHYLENE GLYCOL 3350 17 GM PACKET PO SCH (08:21)
[2016-10-18] MEDS: LISINOPRIL 5 MG TABLET PO SCH (08:21)
[2016-10-18] MEDS: SENNA 8.6 MG TABLET PO SCH (08:21)
[2016-10-18] MEDS: HYDROCORTISONE 1% OINTMENT 28 GM TUBE TOP SCH ×2 (08:30→20:47)
[2016-10-18] MEDS: INSULIN ASPART 300 UNIT/3 ML PEN SUBQ SCH ×4 (08:30→20:48)
[2016-10-18] MEDS ORDERED: SODIUM CHLORIDE 0.9% 1,000 ML IV SCH (08:58)
[2016-10-18] MEDS ORDERED: SODIUM CHLORIDE 0.9% 500 ML IV SCH (09:17)
[2016-10-18] MEDS: METOCLOPRAMIDE 10 MG/2 ML VIAL IVP PRN (09:24)
[2016-10-18] MEDS ORDERED: ceFAZolin 2 GM/50 ML 50 ML IV SCH (10:15)
[2016-10-18] MEDS: SCOPOLAMINE PATCH TOP SCH (11:08)
[2016-10-18 12:38] LABS: HCT - HEMATOCRIT 28.4 % (42.0-52.0); HGB - HEMOGLOBIN 9.5 g/dL (14.0-18.0); MEAN CORPUSCULAR HEMOGLOBIN 30.9 pg (27.0-31.0); MEAN CORPUSCULAR HGB CONC 33.4 g/dL (32.0-36.0); MEAN CORPUSCULAR VOLUME 92.4 fL (80.0-94.0); MEAN PLATELET VOLUME 10.4 fL (7.4-11.4); RED BLOOD COUNT 3.07 10^6/uL (4.70-6.10); RED CELL DISTRIBUTION WIDTH 13.3 % (12.0-15.0); WHITE BLOOD COUNT 6.4 x10^3/uL (4.8-10.8)
--- NOTE | 2016-10-18 16:11 | CONSULTATION NOTE ---
DATE OF CONSULTATION: 10/05/2016 00:00:00 REQUESTING PROVIDER: Dr. Yeh The patient is a 51-year-old male who presented to the hospital with about a month history of abdominal pain. He has had multiple tests including CTA and CT of his abdomen and pelvis, all are negative. His labs are also all negative. Pain has been constant. He underwent an EGD and colonoscopy yesterday which only 2 small polyps were removed from the colon and no other abnormalities were noted on the EGD and colonoscopy. Random biopsies have been obtained and pathology is pending on those. He still has pain at this time that is not able to be determined as far as the cause. VITAL SIGNS: Blood pressure 146/98, temperature 36.8, pulse is 70. GENERAL: The patient is up walking around, but complaining of abdominal pain. SUBJECTIVE: The patient states that his pain is still present in the lower part of his abdomen. He denies any nausea or vomiting. OBJECTIVE: The patient has nonspecific diffuse abdominal pain. DIAGNOSTIC DATA: White blood cell count is 7, hemoglobin 12.5. Liver function tests are normal. Sedimentation rate is normal. ASSESSMENT: Abdominal pain of unknown etiology. He has had multiple diagnostic tests which have been nondiagnostic. The only other test at this time that can be performed is a diagnostic laparoscopy and possible laparotomy. I have explained to him that this more than likely will not find anything, but I have had occasional patients over the years diagnosing an intra-abdominal problem causing the pain that is not found on other tests. Again, I told him that this is extremely rare to find it under laparoscopy or laparotomy. I have discussed possible bowel resection, colon resection, ostomy, etc. The risks and possible complications of the procedure have been explained to him, in addition to whatever already discussed, including but not limited to injuries to abdominal structures, bleeding, heart and lung problems, continued abdominal pain. He accepts the risks and wishes to proceed with the procedure. PLAN: Diagnostic laparoscopy and possible laparotomy in the a.m. Since he had a colonoscopy and EGD, the intestine would still be dilated today and would make the laparoscopy more difficult and possibly missing lesions because of the dilation. Waiting an extra day will allow the distention from the EGD and colonoscopy to resolve and have a better chance of finding pathology if present. JOB #: [id number] EXT JOB #:[id number] YARY
[2016-10-18] MEDS ORDERED: BUPIVACAINE 0.5%-EPI 1:200000 PF 30 ML VIAL SUBQ ONE ×2 (17:03)
[2016-10-18] MEDS ORDERED: LACTATED RINGERS 1,000 ML IV ONE (17:06)
[2016-10-18] MEDS ORDERED: PROPOFOL 200 MG/20 ML VIAL IVP ONE (17:22)
[2016-10-18] MEDS ORDERED: ACETAMINOPHEN 1,000 MG/100 ML VIAL IV ONE (17:22)
[2016-10-18] MEDS ORDERED: PHENYLEPHRINE 50 MG/5 ML VIAL IV ONE (17:22)
[2016-10-18] MEDS ORDERED: MIDAZOLAM 2 MG/2 ML VIAL IVP ONE (17:22)
[2016-10-18] MEDS ORDERED: SUCCINYLCHOLINE 200 MG/10 ML VIAL IVP ONE (17:22)
[2016-10-18] MEDS ORDERED: LIDOCAINE-MPF 2% 5 ML VIAL IM ONE (17:22)
[2016-10-18] MEDS ORDERED: METOCLOPRAMIDE 10 MG/2 ML VIAL IVP ONE (17:22)
[2016-10-18] MEDS ORDERED: fentaNYL 100 MCG/2 ML VIAL IVP ONE (17:22)
[2016-10-18] MEDS ORDERED: ONDANSETRON 4 MG/2 ML VIAL IVP ONE (17:22)
[2016-10-18] MEDS ORDERED: NEOSTIGMINE 1 MG/1 ML 10 ML MDV IVP ONE (17:22)
[2016-10-18] MEDS ORDERED: ceFAZolin 1 GM VIAL IV ONE (17:22)
[2016-10-18] MEDS ORDERED: ROCURONIUM 50 MG/5 ML VIAL IVP ONE (17:22)
[2016-10-18] MEDS ORDERED: GLYCOPYRROLATE 1 MG/5 ML VIAL IVP ONE (17:22)
--- NOTE | 2016-10-18 18:45 | PROVIDER PROGRESS NOTE ---
Assessment/Plan - Problem List (1) Hemoperitoneum Assessment/Plan: Patient was having pain last night and became hypotensive and lethargic then passed out. Was sent for CTA thorax with concern for possible PE. CT however revealed hemoperioneum. Patients Hb checked and it had fallen from 14 to 11.9 then to 10.5 Thought to possibly be a complication of diagnostic lap Surgery called and recommended monitoring Hb no need for evacuation at this point Patient continues to have pain in his abdomen, chest and left shoulder Evaluated for Chest pain with CXR, trop and EKG all were negative Hb down to 9.0 this morning Surgery to take patient back to OR to possible evacuate any blood in the peritoneum Patient NPO this am for surgery in the afternoon Will continue to monitor Hb (2) Abdominal pain Qualifiers: Abdominal location: generalized Qualified Code(s): R10.84 - Generalized abdominal pain Assessment/Plan: Unspecified abdominal pain with nausea, vomiting and diarrhea Possible etiology could be gastroparesis secondary to poorly controlled dm, mesenteric ischemia, gastric or duodenal ulcer, gastritis, gastroenteritis, cannabis induced cyclic vomiting, SBO, mass, IBD, IBS or psychosomatic pain Pain still not improved as patient continues to require pain medication around the clock Abd is soft with diffuse severe tenderness on exam Stool occult blood negative Patient had pancreatitis at [facility] 1 week ago and underwent 2 CT scans both negative, lipase normal on presentation here CTA negative for ischemia or aneurysms Stool cx negative IVFs Improved nausea but pain persistent despite pain meds around the clock Surgery consulted EGD and colonoscopy negative, biopsies also negative Patient went for diagnostic laparoscopy this morning and only finding was adhesions but no obstruction. Patient did undergo lysis of adhesions Patient developed hemoperitoneum post op and is now having abdominal pain from that Previous abd pain has resolved For previous abd pain will need to follow up with Dr España in [address] or MRI enterography (3) Hypokalemia Assessment/Plan: Resolved (4) Diabetes Qualifiers: Diabetes mellitus type: type 2 Assessment/Plan: HbA1C is 11.4 Lantus 10 units subQ Novolog SS TID Full liquid diet Blood sugars are very well controlled in the hospital Monitor glucose (5) Hypertension Qualifiers: Hypertension type: essential hypertension Qualified Code(s): I10 - Essential (primary) hypertension Assessment/Plan: Continue home dose of lisinopril Controlled Monitor BP closely given bleeding hold lisinopril if low (6) Hyperlipidemia Assessment/Plan: Stable On statin (7) Peripheral Neuropathy Assessment/Plan: Patient has peripheral neuropathy secondary to diabetes On gabapentin (8) Prophylactic use of low molecular weight heparin for venous thromboembolism Assessment/Plan: Lovenox held for bleeding now on SCDs - Current Meds Current Meds: Current Medications Generic Name Dose Route Start Last Admin Trade Name Freq PRN Reason Stop Dose Admin Atorvastatin Calcium 10 mg 10/14/16 21:00 10/17/16 20:48 Lipitor PO 10 mg QPM ESTHER Administration Calcium Carbonate/Glycine 500 mg 10/14/16 09:00 10/18/16 08:21 Tums PO 500 mg BID ESTHER Administration Carboxymethylcellulose 0 drops 10/17/16 21:59 10/17/16 22:32 Refresh 1% Ophth Drops EACHEYE 1 drops PRN PRN Administration Dry Eye Docusate Sodium 250 - 500 mg 10/18/16 09:00 10/18/16 08:21 Colace 250mg Capsule PO 250 mg DAILY ESTHER Administration Gabapentin 300 mg 10/15/16 10:40 10/18/16 16:18 Neurontin PO Not Given QID ESTHER Hydrocortisone 1 applic 10/14/16 09:00 10/18/16 08:30 Hydrocortisone TOP 1 applic BID ESTHER Administration Hyoscyamine 0.125 mg 10/12/16 07:00 10/18/16 16:18 Levsin SL Not Given AC ESTHER Famotidine 50 mls @ 100 mls/hr 10/11/16 23:45 10/18/16 08:21 Pepcid 20 Mg/50 Ml IV 100 mls/hr BID ESTHER Administration Insulin Aspart 1 - 5 unit 10/17/16 17:00 10/18/16 18:01 Novolog SUBQ Not Given 0800,1200,1700,2100 [facility] Protocol Insulin Glargine 10 unit 10/12/16 21:00 10/17/16 20:55 Lantus Solostar SUBQ 10 unit QPM ESTHER Administration Lisinopril 5 mg 10/15/16 09:00 10/18/16 08:21 Zestril PO 5 mg DAILY ESTHER Administration Metoclopramide HCl 5 mg 10/11/16 23:34 10/18/16 09:24 Reglan Inj IVP 5 mg Q6HR PRN Administration Abdominal Pain Morphine Sulfate 2 mg 10/17/16 10:56 10/18/16 13:39 Morphine IVP 2 mg Q2HR PRN Administration PAIN Ondansetron HCl 4 mg 10/11/16 23:31 10/15/16 18:12 Zofran Inj IVP 4 mg Q6HR PRN Administration Nausea / Vomiting Oxycodone HCl 5 mg 10/15/16 10:03 10/18/16 09:24 Roxicodone PO 5 mg Q4HR PRN Administration PAIN Polyethylene Glycol 17 gm 10/12/16 09:00 10/18/16 08:21 Miralax PO 17 gm DAILY ESTHER Administration Scopolamine HBr 1 patch 10/18/16 11:00 10/18/16 11:08 Transderm-Scop TOP 1 patch Q3D ESTHER Administration Senna 8.6 - 17.2 mg 10/18/16 09:00 10/18/16 08:21 Senokot PO 8.6 mg DAILY ESTHER Administration Sodium Chloride 10 ml 10/11/16 23:31 10/14/16 09:55 Normal Saline Flush 0.9% IVP 10 ml PRN PRN Administration NEEDED PER PROVIDER ORDERS Sodium Chloride 10 ml 10/12/16 06:00 10/18/16 13:40 Normal Saline Flush 0.9% IVP Not Given Q8HR ESTHER Zolpidem Tartrate 5 mg 10/14/16 00:08 10/18/16 00:37 Ambien PO 5 mg QPM PRN Administration Insomnia - Lab Result Lab results reviewed: Yes Fish Bone Diagrams: 10/18/16 12:30 10/16/16 22:50 - Diagnostic Imaging Results Diagnostic Imaging Results: Final report reviewed - Additional Planning Condition/Complexity: Guarded My Orders: My Active Orders 10/17/16 21:59 Carboxymethylcellulose 1% Opht [Refresh 1% Ophth Drops] 0 drops EACHEYE PRN PRN 10/18/16 09:00 Docusate Sodium 250Mg Capsule [Colace 250Mg Capsule] 250 - 500 mg PO DAILY Senna [Senokot] 8.6 - 17.2 mg PO DAILY 10/18/16 11:00 Scopolamine Patch [Transderm-Scop] 1 patch TOP Q3D 10/19/16 05:00 CBC - COMP BLD CT W/AUTO DIFF [HEME] DAILYLAB CMP, RFLX TO IONIZED CA IF [CHEM] DAILYLAB Consult/Specialty: Surgery Plan Discussed with:: Patient Time Spent: 31-60 minutes Subjective - Subjective Patient Reports: Pain (Continues to have abdominal pain and pain in the chest and left shoulder.) Nursing Reports: No Complaints Objective Vital Signs: Vital Signs - 24 hr 10/17/16 10/17/16 10/18/16 20:38 22:36 00:13 Temperature 36.8 C 36.8 C Heart Rate [ 93 83 96 Brachial] Respiratory 16 16 16 Rate Blood Pressure 128/82 H 119/78 119/81 H [Left Brachial artery] O2 Saturation 97 97 97 10/18/16 10/18/16 10/18/16 05:00 07:33 13:00 Temperature 36.8 C 36.8 C 36.8 C Heart Rate [ 82 87 91 Brachial] Respiratory 16 14 14 Rate Blood Pressure 108/77 113/77 121/80 [Left Brachial artery] O2 Saturation 97 97 95 10/18/16 10/18/16 10/18/16 15:55 18:18 18:20 Temperature 37.0 C Heart Rate [ 96 Brachial] Respiratory 18 Rate Blood Pressure 119/77 [Left Brachial artery] O2 Saturation 97 100 100 10/18/16 10/18/16 18:26 18:30 Temperature Heart Rate [ Brachial] Respiratory Rate Blood Pressure [Left Brachial artery] O2 Saturation 100 97 Oxygen O2 Source Room air I&O (Last 24 Hrs): Intake and Output Totals x24h 10/16/16 10/17/16 10/18/16 23:59 23:59 23:59 Intake Total 1822 4352 1055 Output Total 1075 2400 3760 Balance 747 3352 -2705 General: Alert, Oriented x3, Cooperative, Mild distress (pain) HEENT: Atraumatic, PERRLA, EOMI, Mucous membr. moist/pink Neck: Supple, No JVD, No thyromegaly, +2 carotid pulse wo bruit, No LAD Lymphatic: no adenopathy Neuro: Alert, Non Focal, CN 2-12 Grossly Intact, Oriented Times 3 Cardiovascular: Regular rate, Normal S1, Normal S2, No murmurs Respiratory: Chest non-tender, No respiratory distress, Breath sounds nml, Rales (bases) Abdomen: Normal bowel sounds, Soft, Other (very tender on palpation specifically at site of previous laproscopy) Extremities: No clubbing, No cyanosis, No edema, Normal pulses, No tenderness/ swelling Skin: No rashes, No breakdown, No significant lesion - Results Results: Laboratory Results WBC 6.4 x10^3/uL (4.8-10.8) 10/18/16 12:30 RBC 3.07 10^6/uL (4.70-6.10) L 10/18/16 12:30 Hgb 9.5 g/dL (14.0-18.0) L 10/18/16 12:30 Hct 28.4 % (42.0-52.0) L 10/18/16 12:30 MCV 92.4 fL (80.0-94.0) 10/18/16 12:30 MCH 30.9 pg (27.0-31.0) 10/18/16 12:30 MCHC 33.4 g/dL (32.0-36.0) 10/18/16 12:30 RDW 13.3 % (12.0-15.0) 10/18/16 12:30 Plt Count 161 10^3/uL (130-450) 10/18/16 12:30 MPV 10.4 fL (7.4-11.4) 10/18/16 12:30 Neut # 2.8 10^3/uL (1.5-6.6) 10/18/16 05:49 Lymph # 2.0 10^3/uL (1.5-3.5) 10/18/16 05:49 Mcnairy # 0.8 10^3/uL (0.0-1.0) 10/18/16 05:49 Eos # 0.2 10^3/uL (0.0-0.7) 10/18/16 05:49 Baso # 0.0 10^3/uL (0.0-0.1) 10/18/16 05:49 Absolute Nucleated RBC 0.00 x10^3/uL 10/18/16 05:49 Nucleated RBCs 0.0 /100WBC 10/18/16 05:49 Manual Slide Review Indicated 10/16/16 22:50 Platelet Estimate NORMAL (130-450,000) (NORMAL) 10/16/16 22:50 Platelet Morphology NORMAL APPEARANCE (NORMAL) 10/16/16 22:50 ESR 5 mm/Hr (0-20) 10/14/16 05:39 PT 12.9 secs (9.9-12.6) H 10/17/16 07:53 INR 1.2 (0.8-1.2) 10/17/16 07:53 APTT 26.8 secs (24.9-33.3) 10/17/16 07:53 VBG pH 7.319 (7.31-7.41) 10/14/16 05:39 Ionized Calcium 1.13 mmol/L (1.15-1.33) L 10/14/16 05:39 Sodium 136 mmol/L (135-145) 10/16/16 22:50 Potassium 3.8 mmol/L (3.5-5.0) 10/16/16 22:50 Chloride 101 mmol/L (101-111) 10/16/16 22:50 Carbon Dioxide 26 mmol/L (21-32) 10/16/16 22:50 Anion Gap 9.0 (6-13) 10/16/16 22:50 BUN 9 mg/dL (6-20) 10/16/16 22:50 Creatinine 0.8 mg/dL (0.6-1.2) 10/16/16 22:50 Estimated GFR (MDRD) 101 (>89) 10/16/16 22:50 Glucose 350 mg/dL (70-100) H 10/16/16 22:50 POC Whole Bld Glucose 167 mg/dL (70 - 100) H 10/18/16 18:23 Glycated Hemoglobin 11.4 % (4.6-6.2) H 10/11/16 21:35 Estim Average Glucose 280 (70-100) H 10/11/16 21:35 Calcium 8.7 mg/dL (8.5-10.3) 10/16/16 22:50 Ionized Calcium NO 10/16/16 08:05 Phosphorus 3.8 mg/dL (2.5-4.6) 10/16/16 08:05 Magnesium 1.8 mg/dL (1.7-2.8) 10/16/16 08:05 Total Bilirubin 0.8 mg/dL (0.2-1.0) 10/16/16 22:50 AST 20 IU/L (10-42) 10/16/16 22:50 ALT 24 IU/L (10-60) 10/16/16 22:50 Alkaline Phosphatase 61 IU/L (42-121) 10/16/16 22:50 Troponin I < 0.04 ng/mL (<0.49) 10/17/16 16:39 Total Protein 5.9 g/dL (6.7-8.2) L 10/16/16 22:50 Albumin 3.3 g/dL (3.2-5.5) 10/16/16 22:50 Globulin 2.6 g/dL (2.1-4.2) 10/16/16 22:50 Albumin/Globulin Ratio 1.3 (1.0-2.2) 10/16/16 22:50 Amylase 25 U/L (28-100) L 10/11/16 21:35 Lipase 18 U/L (22-51) L 10/11/16 21:35 Urine Color YELLOW 10/12/16 18:20 Urine Clarity CLEAR (CLEAR) 10/12/16 18:20 Urine pH 6.5 PH (5.0-7.5) 10/12/16 18:20 Ur Specific Dieterich 1.010 (1.002-1.030) 10/12/16 18:20 Urine Protein NEGATIVE mg/dL (NEGATIVE) 10/12/16 18:20 Urine Glucose (UA) NEGATIVE mg/dL (NEGATIVE) 10/12/16 18:20 Urine Ketones TRACE mg/dL (NEGATIVE) 10/12/16 18:20 Urine Occult Blood NEGATIVE (NEGATIVE) 10/12/16 18:20 Urine Nitrite NEGATIVE (NEGATIVE) 10/12/16 18:20 Urine Bilirubin NEGATIVE (NEGATIVE) 10/12/16 18:20 Urine Urobilinogen 0.2 (NORMAL) E.U./dL (NORMAL) 10/12/16 18:20 Ur Leukocyte Esterase NEGATIVE (NEGATIVE) 10/12/16 18:20 Ur Microscopic Review NOT INDICATED 10/12/16 18:20 Urine Culture Comments NOT INDICATED 10/12/16 18:20 Stool Leukocytes, Qual NEGATIVE (Negative) 10/11/16 09:30 Stl Giardia Antigen TNP 10/11/16 09:30 Urine Opiates Screen POSITIVE (NEGATIVE) H 10/17/16 03:47 Ur Oxycodone Screen POSITIVE (NEGATIVE) H 10/17/16 03:47 Urine Methadone Screen NEGATIVE (NEGATIVE) 10/17/16 03:47 Ur Propoxyphene Screen NEGATIVE (NEGATIVE) 10/17/16 03:47 Ur Barbiturates Screen NEGATIVE (NEGATIVE) 10/17/16 03:47 Ur Tricyclics Screen NEGATIVE (NEGATIVE) 10/17/16 03:47 Ur Phencyclidine Scrn NEGATIVE (NEGATIVE) 10/17/16 03:47 Ur Amphetamine Screen NEGATIVE (NEGATIVE) 10/17/16 03:47 U Methamphetamines Scrn NEGATIVE (NEGATIVE) 10/17/16 03:47 U Benzodiazepines Scrn NEGATIVE (NEGATIVE) 10/17/16 03:47 Urine Cocaine Screen NEGATIVE (NEGATIVE) 10/17/16 03:47 U Cannabinoids Screen POSITIVE (NEGATIVE) H 10/17/16 03:47 Cryptosporidium Ag TNP 10/11/16 09:30 H. pylori IgG Antibody Negative (Negative) 10/11/16 21:35 Blood Type A POSITIVE 10/17/16 03:32 Blood Type Recheck A POSITIVE 10/17/16 05:43 Antibody Screen NEGATIVE 10/17/16 03:32 Crossmatch IS Only See Detail 10/17/16 03:32
[2016-10-18] MEDS: ALPRAZolam 0.25 MG TABLET PO PRN (19:22)
[2016-10-18] MEDS: ATORVASTATIN 10 MG TABLET PO SCH (20:44)
[2016-10-18] MEDS: INSULIN GLARGINE 300 UNIT/3 ML PEN SUBQ SCH (20:49)
[2016-10-18 22:15] LABS: HCT - HEMATOCRIT 27.9 % (42.0-52.0); HGB - HEMOGLOBIN 9.2 g/dL (14.0-18.0)
[2016-10-19] MEDS: oxyCODONE 5 MG TABLET PO PRN ×4 (00:04→17:27)
[2016-10-19] MEDS: SENNA 8.6 MG TABLET PO SCH ×5 (00:05→17:28)
[2016-10-19] MEDS: MORPHINE 2 MG/ML SYRINGE IVP PRN ×2 (05:52→09:52)
[2016-10-19 06:06] LABS: BASOPHILS % (AUTO) 0.4 %; EOSINOPHILS # (AUTO) 0.3 10^3/uL (0.0-0.7); EOSINOPHILS % (AUTO) 4.3 %; HCT - HEMATOCRIT 27.8 % (42.0-52.0); HGB - HEMOGLOBIN 9.3 g/dL (14.0-18.0); LYMPHOCYTES # (AUTO) 1.5 10^3/uL (1.5-3.5); LYMPHOCYTES % (AUTO) 23.6 %; MEAN CORPUSCULAR HEMOGLOBIN 31.2 pg (27.0-31.0); MEAN CORPUSCULAR HGB CONC 33.4 g/dL (32.0-36.0); MEAN CORPUSCULAR VOLUME 93.6 fL (80.0-94.0); MEAN PLATELET VOLUME 10.1 fL (7.4-11.4); MONOCYTES % (AUTO) 15.1 %; NEUTROPHILS # (AUTO) 3.7 10^3/uL (1.5-6.6); NEUTROPHILS % (AUTO) 56.6 %; RED BLOOD COUNT 2.97 10^6/uL (4.70-6.10); UNCORRECTED WHITE BLOOD COUNT 6.5 x10^3/uL; WHITE BLOOD COUNT 6.5 x10^3/uL (4.8-10.8)
[2016-10-19 06:18] LABS: ALBUMIN/GLOBULIN RATIO 1.3 (1.0-2.2); BILIRUBIN,TOTAL 0.6 mg/dL (0.2-1.0); BUN - BLOOD UREA NITROGEN < 5 mg/dL (6-20); CALCIUM 8.4 mg/dL (8.5-10.3); CARBON DIOXIDE - CO2 31 mmol/L (21-32); CHLORIDE 105 mmol/L (101-111); CREATININE 0.7 mg/dL (0.6-1.2); GFR - MDRD 118 (>89); GLUCOSE 150 mg/dL (70-100); POTASSIUM 3.5 mmol/L (3.5-5.0); SODIUM 141 mmol/L (135-145); TOTAL PROTEIN 5.6 g/dL (6.7-8.2)
[2016-10-19] MEDS: SODIUM CHLORIDE FLUSH 0.9% 10 ML SYRINGE IVP SCH ×3 (06:33→20:44)
[2016-10-19] MEDS: HYOSCYAMINE SL 0.125 MG TABLET SL SCH ×3 (06:35→17:31)
[2016-10-19] MEDS: DOCUSATE SODIUM 250 MG CAPSULE PO SCH (08:05)
[2016-10-19] MEDS: CALCIUM CARBONATE CHEW 500 MG TABLET PO SCH ×2 (08:05→20:43)
[2016-10-19] MEDS: FAMOTIDINE 20 MG/50 ML 50 ML IV SCH ×2 (08:06→20:43)
[2016-10-19] MEDS: POLYETHYLENE GLYCOL 3350 17 GM PACKET PO SCH (08:06)
[2016-10-19] MEDS: LISINOPRIL 5 MG TABLET PO SCH (08:06)
[2016-10-19] MEDS: GABAPENTIN 300 MG CAPSULE PO SCH ×4 (08:07→20:43)
[2016-10-19] MEDS: INSULIN ASPART 300 UNIT/3 ML PEN SUBQ SCH ×4 (08:07→20:47)
[2016-10-19] MEDS: HYDROCORTISONE 1% OINTMENT 28 GM TUBE TOP SCH ×2 (08:07→20:43)
--- NOTE | 2016-10-19 09:53 | OPERATIVE REPORT ---
DATE OF SURGERY: 10/16/2016 00:00:00 PREOPERATIVE DIAGNOSIS: Abdominal pain. POSTOPERATIVE DIAGNOSES 1. Abdominal pain of unknown etiology. 2. Intraabdominal adhesions from previous appendectomy. OPERATIONS PERFORMED 1. Diagnostic laparoscopy. 2. Lysis of adhesions. OPERATING SURGEON: Thomas España MD ANESTHESIA: General. INDICATION FOR PROCEDURE: The patient is a 51-year-old male who has had lower abdominal pain for over a month now. It is described as sharp and constant. He has normal bowel movements. He has undergone extensive workup including CT scans of his abdomen, and colonoscopy, and EGD, which were essentially normal, and no cause for his pain was found. Now he will undergo a diagnostic laparoscopy. FINDINGS AT SURGERY: Patient had adhesions from his previous appendectomy on the right side. There were several loops of bowel that were adhesed to the omentum and to the side wall. Although they did not appear obstructive, I did lyse these adhesions. There were no adhesions afterwards from the terminal ileum to the ligament of Treitz. Patient's right and left colon, as well as the sigmoid was normal. The patient's gallbladder, liver, and anterior stomach were normal. PROCEDURE: After informed consent was obtained, the patient was taken to the operating room and placed in the supine position. General endotracheal anesthesia was administered. The patient's abdomen was then prepped and draped in the usual sterile fashion. An infraumbilical incision was made in the skin using a scalpel. Prior to making any incisions, the skin was injected with 0.25% Marcaine. A 5 mm Optiview trocar was then inserted through the incision, through the fascia, and into the abdominal cavity under direct vision. The abdomen was then insufflated. Looking inside, no injuries were noted. A 5 mm port was placed in the right and left lower quadrants under direct vision. There were multiple adhesions on the right side from his previous appendectomy. The small bowel was also adherent to itself, omentum, and to the pelvic side wall. All these adhesions were then lysed. There was not any noticeable bleeding at this time. This took over an hour to perform laparoscopically. After completing the lysis of adhesions, the bowel was then looked at. This was started at the terminal ileum, all the way to the ligament of Treitz. The patient did have a fair amount of spasm in the small intestine of unknown significance. The patient's right and left colon, as well as sigmoid were looked at, and no abnormalities were noted. The patient's liver and gallbladder were normal. The ports were then removed, and no bleeding was noted at the port sites, with the abdomen then being desufflated. The fascial defect at the umbilicus was then closed using #0 Vicryl suture. Skin incisions were closed using 4-0 Monocryl subcuticular stitch. Dermabond was then applied to the incision sites. The patient was then awakened, extubated, and taken from the operating room in stable condition. ESTIMATED BLOOD LOSS: 5 mL. COMPLICATIONS: None. CONDITION OF THE PATIENT AT END OF PROCEDURE: Stable. SPECIMENS: None. DRAINS AND PACKS: None. CLASSIFICATION OF WOUND: Clean. JOB #: [id number] EXT JOB #:[id number] MTDD
[2016-10-19] MEDS ORDERED: MAGNESIUM CITRATE 296 ML BOTTLE PO ONE (10:46)
--- NOTE | 2016-10-19 11:26 | PROVIDER PROGRESS NOTE ---
Assessment/Plan - Problem List (1) Abdominal pain Qualifiers: Abdominal location: generalized Qualified Code(s): R10.84 - Generalized abdominal pain Assessment/Plan: Lenny says his pain is a 9/10 However he has been getting out of bed, though he walks slow He just had his 2nd Lap yesterday. Some blood in the abd (2) Diabetes Qualifiers: Diabetes mellitus type: type 2 Assessment/Plan: sugar in 150s today. will advance his diet to soft and see how it is tolerated. he also has not had a BM Told not suppose to as eaten only 2 of the last 10 days However he wants Mag Citrate. - Current Meds Current Meds: Current Medications Generic Name Dose Route Start Last Admin Trade Name Freq PRN Reason Stop Dose Admin Alprazolam 0.25 mg 10/17/16 15:34 10/18/16 19:22 Xanax PO 0.25 mg Q6HR PRN Administration Anxiety Atorvastatin Calcium 10 mg 10/14/16 21:00 10/18/16 20:44 Lipitor PO 10 mg QPM ESTHER Administration Calcium Carbonate/Glycine 500 mg 10/14/16 09:00 10/19/16 08:05 Tums PO 500 mg BID ESTHER Administration Carboxymethylcellulose 0 drops 10/17/16 21:59 10/17/16 22:32 Refresh 1% Ophth Drops EACHEYE 1 drops PRN PRN Administration Dry Eye Docusate Sodium 250 - 500 mg 10/18/16 09:00 10/19/16 08:05 Colace 250mg Capsule PO 500 mg DAILY ESTHER Administration Gabapentin 300 mg 10/15/16 10:40 10/19/16 08:07 Neurontin PO 300 mg QID ESTHER Administration Hydrocortisone 1 applic 10/14/16 09:00 10/19/16 08:07 Hydrocortisone TOP 1 applic BID ESTHER Administration Hyoscyamine 0.125 mg 10/12/16 07:00 10/19/16 06:35 Levsin SL 0.125 mg AC ESTHER Administration Famotidine 50 mls @ 100 mls/hr 10/11/16 23:45 10/19/16 08:06 Pepcid 20 Mg/50 Ml IV 100 mls/hr BID ESTHER Administration Sodium Chloride 1,000 mls @ 50 mls/hr 10/18/16 18:16 10/18/16 19:22 Normal Saline 0.9% IV 50 mls/hr .Q20H ESTHER Administration Insulin Aspart 1 - 5 unit 10/17/16 17:00 10/19/16 08:07 Novolog SUBQ Not Given 0800,1200,1700,2100 [facility] Protocol Insulin Glargine 10 unit 10/12/16 21:00 10/18/16 20:49 Lantus Solostar SUBQ 10 unit QPM ESTHER Administration Lisinopril 5 mg 10/15/16 09:00 10/19/16 08:06 Zestril PO 5 mg DAILY ESTHER Administration Metoclopramide HCl 5 mg 10/11/16 23:34 10/18/16 09:24 Reglan Inj IVP 5 mg Q6HR PRN Administration Abdominal Pain Morphine Sulfate 2 mg 10/17/16 10:56 10/19/16 09:52 Morphine IVP 2 mg Q2HR PRN Administration PAIN Ondansetron HCl 4 mg 10/11/16 23:31 10/15/16 18:12 Zofran Inj IVP 4 mg Q6HR PRN Administration Nausea / Vomiting Oxycodone HCl 5 mg 10/15/16 10:03 10/19/16 04:31 Roxicodone PO 5 mg Q4HR PRN Administration PAIN Polyethylene Glycol 17 gm 10/12/16 09:00 10/19/16 08:06 Miralax PO 17 gm DAILY ESTHER Administration Scopolamine HBr 1 patch 10/18/16 11:00 10/18/16 11:08 Transderm-Scop TOP 1 patch Q3D ESTHER Administration Senna 8.6 - 17.2 mg 10/18/16 09:00 10/19/16 08:06 Senokot PO 17.2 mg DAILY ESTHER Administration Senna 17.2 - 25.8 mg 10/18/16 23:45 10/19/16 06:35 Senokot PO 10/19/16 17:46 17.2 mg Q6H ESTHER Administration Sodium Chloride 10 ml 10/11/16 23:31 10/14/16 09:55 Normal Saline Flush 0.9% IVP 10 ml PRN PRN Administration NEEDED PER PROVIDER ORDERS Sodium Chloride 10 ml 10/12/16 06:00 10/19/16 06:33 Normal Saline Flush 0.9% IVP Not Given Q8HR ESTHER Zolpidem Tartrate 5 mg 10/14/16 00:08 10/18/16 00:37 Ambien PO 5 mg QPM PRN Administration Insomnia - Lab Result Fish Bone Diagrams: 10/19/16 05:41 10/19/16 05:41 - Additional Planning My Orders: My Active Orders 10/19/16 Dinner Soft (Low Fiber) Diet [DIET] 10/20/16 05:00 CBC - COMP BLD CT W/AUTO DIFF [HEME] DAILYLAB COMPREHENSIVE METABOLIC PANEL [CHEM] DAILYLAB Subjective - Subjective Patient Reports: Pain Nursing Reports: Pain Objective Vital Signs: Vital Signs - 24 hr 10/18/16 10/18/16 10/18/16 13:00 15:55 18:18 Temperature 36.8 C 37.0 C Heart Rate [ 91 96 Brachial] Respiratory 14 18 Rate Blood Pressure 121/80 119/77 [Left Brachial artery] O2 Saturation 95 97 100 10/18/16 10/18/16 10/18/16 18:20 18:26 18:30 Temperature Heart Rate [ Brachial] Respiratory Rate Blood Pressure [Left Brachial artery] O2 Saturation 100 100 97 10/18/16 10/18/16 10/18/16 18:35 18:40 18:45 Temperature Heart Rate [ Brachial] Respiratory Rate Blood Pressure [Left Brachial artery] O2 Saturation 98 99 98 10/18/16 10/18/16 10/19/16 19:30 23:56 05:00 Temperature 36.9 C 36.8 C 36.8 C Heart Rate [ 112 H 89 83 Brachial] Respiratory 16 16 16 Rate Blood Pressure 122/77 123/81 H 109/70 [Left Brachial artery] O2 Saturation 9 L 97 98 10/19/16 09:00 Temperature 36.5 C Heart Rate [ 91 Brachial] Respiratory 16 Rate Blood Pressure 131/85 H [Left Brachial artery] O2 Saturation 96 Oxygen O2 Source Room air I&O (Last 24 Hrs): Intake and Output Totals x24h 10/17/16 10/18/16 10/19/16 23:59 23:59 23:59 Intake Total 4352 1993 998 Output Total 2400 4280 1450 Balance 4574 -5268 -814 General: Alert, Oriented x3, Cooperative HEENT: PERRLA, EOMI Neck: No JVD, No thyromegaly Neuro: Alert, Oriented Times 3 Cardiovascular: Regular rate, No murmurs Respiratory: Chest non-tender, Breath sounds nml, Wheezes Abdomen: Normal bowel sounds, Soft, Other (surgical wounds clean and dry) Extremities: No cyanosis, No edema - Results Results: Laboratory Results WBC 6.5 x10^3/uL (4.8-10.8) 10/19/16 05:41 RBC 2.97 10^6/uL (4.70-6.10) L 10/19/16 05:41 Hgb 9.3 g/dL (14.0-18.0) L 10/19/16 05:41 Hct 27.8 % (42.0-52.0) L 10/19/16 05:41 MCV 93.6 fL (80.0-94.0) 10/19/16 05:41 MCH 31.2 pg (27.0-31.0) H 10/19/16 05:41 MCHC 33.4 g/dL (32.0-36.0) 10/19/16 05:41 RDW 13.0 % (12.0-15.0) 10/19/16 05:41 Plt Count 152 10^3/uL (130-450) 10/19/16 05:41 MPV 10.1 fL (7.4-11.4) 10/19/16 05:41 Neut # 3.7 10^3/uL (1.5-6.6) 10/19/16 05:41 Lymph # 1.5 10^3/uL (1.5-3.5) 10/19/16 05:41 [place] # 1.0 10^3/uL (0.0-1.0) 10/19/16 05:41 Eos # 0.3 10^3/uL (0.0-0.7) 10/19/16 05:41 Baso # 0.0 10^3/uL (0.0-0.1) 10/19/16 05:41 Absolute Nucleated RBC 0.00 x10^3/uL 10/19/16 05:41 Nucleated RBCs 0.0 /100WBC 10/19/16 05:41 Manual Slide Review Indicated 10/16/16 22:50 Platelet Estimate NORMAL (130-450,000) (NORMAL) 10/16/16 22:50 Platelet Morphology NORMAL APPEARANCE (NORMAL) 10/16/16 22:50 ESR 5 mm/Hr (0-20) 10/14/16 05:39 PT 12.9 secs (9.9-12.6) H 10/17/16 07:53 INR 1.2 (0.8-1.2) 10/17/16 07:53 APTT 26.8 secs (24.9-33.3) 10/17/16 07:53 VBG pH 7.319 (7.31-7.41) 10/14/16 05:39 Ionized Calcium 1.13 mmol/L (1.15-1.33) L 10/14/16 05:39 Sodium 141 mmol/L (135-145) 10/19/16 05:41 Potassium 3.5 mmol/L (3.5-5.0) 10/19/16 05:41 Chloride 105 mmol/L (101-111) 10/19/16 05:41 Carbon Dioxide 31 mmol/L (21-32) 10/19/16 05:41 Anion Gap 5.0 (6-13) L 10/19/16 05:41 BUN < 5 mg/dL (6-20) L 10/19/16 05:41 Creatinine 0.7 mg/dL (0.6-1.2) 10/19/16 05:41 Estimated GFR (MDRD) 118 (>89) 10/19/16 05:41 Glucose 150 mg/dL (70-100) H 10/19/16 05:41 POC Whole Bld Glucose 167 mg/dL (70 - 100) H 10/18/16 18:23 Glycated Hemoglobin 11.4 % (4.6-6.2) H 10/11/16 21:35 Estim Average Glucose 280 (70-100) H 10/11/16 21:35 Calcium 8.4 mg/dL (8.5-10.3) L 10/19/16 05:41 Ionized Calcium NO 10/19/16 05:41 Phosphorus 3.8 mg/dL (2.5-4.6) 10/16/16 08:05 Magnesium 1.8 mg/dL (1.7-2.8) 10/16/16 08:05 Total Bilirubin 0.6 mg/dL (0.2-1.0) 10/19/16 05:41 AST 16 IU/L (10-42) 10/19/16 05:41 ALT 14 IU/L (10-60) 10/19/16 05:41 Alkaline Phosphatase 62 IU/L (42-121) 10/19/16 05:41 Troponin I < 0.04 ng/mL (<0.49) 10/17/16 16:39 Total Protein 5.6 g/dL (6.7-8.2) L 10/19/16 05:41 Albumin 3.2 g/dL (3.2-5.5) 10/19/16 05:41 Globulin 2.4 g/dL (2.1-4.2) 10/19/16 05:41 Albumin/Globulin Ratio 1.3 (1.0-2.2) 10/19/16 05:41 Amylase 25 U/L (28-100) L 10/11/16 21:35 Lipase 18 U/L (22-51) L 10/11/16 21:35 Urine Color YELLOW 10/12/16 18:20 Urine Clarity CLEAR (CLEAR) 10/12/16 18:20 Urine pH 6.5 PH (5.0-7.5) 10/12/16 18:20 Ur Specific [place] 1.010 (1.002-1.030) 10/12/16 18:20 Urine Protein NEGATIVE mg/dL (NEGATIVE) 10/12/16 18:20 Urine Glucose (UA) NEGATIVE mg/dL (NEGATIVE) 10/12/16 18:20 Urine Ketones TRACE mg/dL (NEGATIVE) 10/12/16 18:20 Urine Occult Blood NEGATIVE (NEGATIVE) 10/12/16 18:20 Urine Nitrite NEGATIVE (NEGATIVE) 10/12/16 18:20 Urine Bilirubin NEGATIVE (NEGATIVE) 10/12/16 18:20 Urine Urobilinogen 0.2 (NORMAL) E.U./dL (NORMAL) 10/12/16 18:20 Ur Leukocyte Esterase NEGATIVE (NEGATIVE) 10/12/16 18:20 Ur Microscopic Review NOT INDICATED 10/12/16 18:20 Urine Culture Comments NOT INDICATED 10/12/16 18:20 Stool Leukocytes, Qual NEGATIVE (Negative) 10/11/16 09:30 Stl Giardia Antigen TNP 10/11/16 09:30 Urine Opiates Screen POSITIVE (NEGATIVE) H 10/17/16 03:47 Ur Oxycodone Screen POSITIVE (NEGATIVE) H 10/17/16 03:47 Urine Methadone Screen NEGATIVE (NEGATIVE) 10/17/16 03:47 Ur Propoxyphene Screen NEGATIVE (NEGATIVE) 10/17/16 03:47 Ur Barbiturates Screen NEGATIVE (NEGATIVE) 10/17/16 03:47 Ur Tricyclics Screen NEGATIVE (NEGATIVE) 10/17/16 03:47 Ur Phencyclidine Scrn NEGATIVE (NEGATIVE) 10/17/16 03:47 Ur Amphetamine Screen NEGATIVE (NEGATIVE) 10/17/16 03:47 U Methamphetamines Scrn NEGATIVE (NEGATIVE) 10/17/16 03:47 U Benzodiazepines Scrn NEGATIVE (NEGATIVE) 10/17/16 03:47 Urine Cocaine Screen NEGATIVE (NEGATIVE) 10/17/16 03:47 U Cannabinoids Screen POSITIVE (NEGATIVE) H 10/17/16 03:47 Cryptosporidium Ag TNP 10/11/16 09:30 H. pylori IgG Antibody Negative (Negative) 10/11/16 21:35 Blood Type A POSITIVE 10/17/16 03:32 Blood Type Recheck A POSITIVE 10/17/16 05:43 Antibody Screen NEGATIVE 10/17/16 03:32 Crossmatch IS Only See Detail 10/17/16 03:32
[2016-10-19] MEDS: SODIUM CHLORIDE 0.9% 1,000 ML IV SCH ×2 (15:23→20:24)
[2016-10-19] MEDS: ALPRAZolam 0.25 MG TABLET PO PRN (17:27)
[2016-10-19] MEDS: ATORVASTATIN 10 MG TABLET PO SCH (20:43)
[2016-10-19] MEDS: INSULIN GLARGINE 300 UNIT/3 ML PEN SUBQ SCH (20:46)
[2016-10-20] MEDS: oxyCODONE 5 MG TABLET PO PRN ×4 (00:20→14:30)
[2016-10-20] MEDS: ZOLPIDEM 5 MG TABLET PO PRN (00:21)
[2016-10-20] MEDS: HYOSCYAMINE SL 0.125 MG TABLET SL SCH ×3 (06:00→16:58)
[2016-10-20] MEDS: SODIUM CHLORIDE FLUSH 0.9% 10 ML SYRINGE IVP SCH ×3 (06:00→22:58)
[2016-10-20 06:26] LABS: BASOPHILS % (AUTO) 0.7 %; EOSINOPHILS # (AUTO) 0.3 10^3/uL (0.0-0.7); HCT - HEMATOCRIT 29.2 % (42.0-52.0); HGB - HEMOGLOBIN 9.8 g/dL (14.0-18.0); LYMPHOCYTES % (AUTO) 33.1 %; MEAN CORPUSCULAR HEMOGLOBIN 31.4 pg (27.0-31.0); MEAN CORPUSCULAR HGB CONC 33.6 g/dL (32.0-36.0); MEAN CORPUSCULAR VOLUME 93.2 fL (80.0-94.0); MEAN PLATELET VOLUME 9.6 fL (7.4-11.4); MONOCYTES # (AUTO) 0.8 10^3/uL (0.0-1.0); NEUTROPHILS # (AUTO) 2.8 10^3/uL (1.5-6.6); NEUTROPHILS % (AUTO) 47.2 %; RED BLOOD COUNT 3.13 10^6/uL (4.70-6.10); RED CELL DISTRIBUTION WIDTH 13.4 % (12.0-15.0); UNCORRECTED WHITE BLOOD COUNT 5.9 x10^3/uL; WHITE BLOOD COUNT 5.9 x10^3/uL (4.8-10.8)
[2016-10-20 06:39] LABS: ALBUMIN/GLOBULIN RATIO 1.3 (1.0-2.2); BILIRUBIN,TOTAL 0.6 mg/dL (0.2-1.0); CALCIUM 8.7 mg/dL (8.5-10.3); CREATININE 0.7 mg/dL (0.6-1.2); POTASSIUM 3.8 mmol/L (3.5-5.0)
--- NOTE | 2016-10-20 08:23 | PROVIDER PROGRESS NOTE ---
Assessment/Plan - Problem List (1) Abdominal pain Qualifiers: Abdominal location: generalized Qualified Code(s): R10.84 - Generalized abdominal pain Assessment/Plan: He is POD #2 he is having pain still an 8 He had diarrhea and 2 episodes of incontinence. He had very dark stool X1 He thinks he saw skin in poop. He is having hard time walking. Will get guaic and walk him more. He also complained of sore neck Neg exam except ant bilateral soreness. (2) Diabetes Qualifiers: Diabetes mellitus type: type 2 Assessment/Plan: Control is still poor. He is in [id number] to 200 Will continue present regime and increase sliding scale. More walking will help. - Current Meds Current Meds: Current Medications Generic Name Dose Route Start Last Admin Trade Name Freq PRN Reason Stop Dose Admin Acetaminophen 650 mg 10/16/16 15:08 10/19/16 20:44 Tylenol PO 650 mg Q4HR PRN Administration Pain or Fever > 38C (100.4F) Alprazolam 0.25 mg 10/17/16 15:34 10/19/16 17:27 Xanax PO 0.25 mg Q6HR PRN Administration Anxiety Atorvastatin Calcium 10 mg 10/14/16 21:00 10/19/16 20:43 Lipitor PO 10 mg QPM ESTHER Administration Calcium Carbonate/Glycine 500 mg 10/14/16 09:00 10/19/16 20:43 Tums PO 500 mg BID ESTHER Administration Carboxymethylcellulose 0 drops 10/17/16 21:59 10/17/16 22:32 Refresh 1% Ophth Drops EACHEYE 1 drops PRN PRN Administration Dry Eye Docusate Sodium 250 - 500 mg 10/18/16 09:00 10/19/16 08:05 Colace 250mg Capsule PO 500 mg DAILY ESTHER Administration Gabapentin 300 mg 10/15/16 10:40 10/19/16 20:43 Neurontin PO 300 mg QID ESTHER Administration Hydrocortisone 1 applic 10/14/16 09:00 10/19/16 20:43 Hydrocortisone TOP 1 applic BID ESTHER Administration Hyoscyamine 0.125 mg 10/12/16 07:00 10/20/16 06:00 Levsin SL 0.125 mg AC ESTHER Administration Famotidine 50 mls @ 100 mls/hr 10/11/16 23:45 10/19/16 20:43 Pepcid 20 Mg/50 Ml IV 100 mls/hr BID ESTHER Administration Sodium Chloride 1,000 mls @ 50 mls/hr 10/18/16 18:16 10/19/16 20:24 Normal Saline 0.9% IV 50 mls/hr .Q20H ESTHER Administration Insulin Aspart 1 - 9 unit 10/19/16 17:00 10/19/16 20:47 Novolog SUBQ 5 unit 0800,1200,1700,2100 ESTHER Administration Protocol Insulin Glargine 10 unit 10/12/16 21:00 10/19/16 20:46 Lantus Solostar SUBQ 10 unit QPM ESTHER Administration Lisinopril 5 mg 10/15/16 09:00 10/19/16 08:06 Zestril PO 5 mg DAILY ESTHER Administration Metoclopramide HCl 5 mg 10/11/16 23:34 10/18/16 09:24 Reglan Inj IVP 5 mg Q6HR PRN Administration Abdominal Pain Morphine Sulfate 2 mg 10/17/16 10:56 10/19/16 09:52 Morphine IVP 2 mg Q2HR PRN Administration PAIN Ondansetron HCl 4 mg 10/11/16 23:31 10/15/16 18:12 Zofran Inj IVP 4 mg Q6HR PRN Administration Nausea / Vomiting Oxycodone HCl 5 mg 10/15/16 10:03 10/20/16 06:00 Roxicodone PO 5 mg Q4HR PRN Administration PAIN Polyethylene Glycol 17 gm 10/12/16 09:00 10/19/16 08:06 Miralax PO 17 gm DAILY ESTHER Administration Scopolamine HBr 1 patch 10/18/16 11:00 10/18/16 11:08 Transderm-Scop TOP 1 patch Q3D ESTHER Administration Senna 8.6 - 17.2 mg 10/18/16 09:00 10/19/16 08:06 Senokot PO 17.2 mg DAILY ESTHER Administration Sodium Chloride 10 ml 10/11/16 23:31 10/14/16 09:55 Normal Saline Flush 0.9% IVP 10 ml PRN PRN Administration NEEDED PER PROVIDER ORDERS Sodium Chloride 10 ml 10/12/16 06:00 10/20/16 06:00 Normal Saline Flush 0.9% IVP Not Given Q8HR ESTHER Zolpidem Tartrate 5 mg 10/14/16 00:08 10/20/16 00:21 Ambien PO 5 mg QPM PRN Administration Insomnia - Lab Result Fish Bone Diagrams: 10/20/16 06:20 10/20/16 06:20 - Additional Planning My Orders: My Active Orders 10/19/16 17:00 Insulin Aspart [NovoLOG] 1 - 9 unit SUBQ 0800,1200,1700,2100 10/19/16 Dinner Soft (Low Fiber) Diet [DIET] 10/20/16 Guiaic [OCCULT BLOOD IN PAT. SINGLE] [RAPID] Routine Subjective - Subjective Patient Reports: Abdominal Pain, Pain Nursing Reports: Diarrhea, Pain Objective Vital Signs: Vital Signs - 24 hr 10/19/16 10/19/16 10/19/16 09:00 13:23 18:23 Temperature 36.5 C 36.8 C 36.8 C Heart Rate [ 91 93 93 Brachial] Respiratory 16 18 16 Rate Blood Pressure 131/85 H 134/81 H 119/84 H [Left Brachial artery] O2 Saturation 96 98 97 10/20/16 10/20/16 00:16 07:29 Temperature 36.7 C 36.6 C Heart Rate [ 82 79 Brachial] Respiratory 16 16 Rate Blood Pressure 101/66 117/75 [Left Brachial artery] O2 Saturation 96 100 Oxygen O2 Source Room air I&O (Last 24 Hrs): Intake and Output Totals x24h 10/18/16 10/19/16 10/20/16 23:59 23:59 23:59 Intake Total 1992 2608 481 Output Total 4280 1700 Balance -2287 908 481 General: Alert, Oriented x3, Cooperative HEENT: PERRLA, EOMI Neck: No thyromegaly Lymphatic: no adenopathy Neuro: Alert, Oriented Times 3 Cardiovascular: Regular rate, No murmurs Respiratory: Chest non-tender, No respiratory distress, Breath sounds nml Abdomen: Normal bowel sounds, Soft, Other (his stab wounds upper have some mild erythema lower one do not.) Extremities: No clubbing, No edema - Results Results: Laboratory Results WBC 5.9 x10^3/uL (4.8-10.8) 10/20/16 06:20 RBC 3.13 10^6/uL (4.70-6.10) L 10/20/16 06:20 Hgb 9.8 g/dL (14.0-18.0) L 10/20/16 06:20 Hct 29.2 % (42.0-52.0) L 10/20/16 06:20 MCV 93.2 fL (80.0-94.0) 10/20/16 06:20 MCH 31.4 pg (27.0-31.0) H 10/20/16 06:20 MCHC 33.6 g/dL (32.0-36.0) 10/20/16 06:20 RDW 13.4 % (12.0-15.0) 10/20/16 06:20 Plt Count 160 10^3/uL (130-450) 10/20/16 06:20 MPV 9.6 fL (7.4-11.4) 10/20/16 06:20 Neut # 2.8 10^3/uL (1.5-6.6) 10/20/16 06:20 Lymph # 2.0 10^3/uL (1.5-3.5) 10/20/16 06:20 [place] # 0.8 10^3/uL (0.0-1.0) 10/20/16 06:20 Eos # 0.3 10^3/uL (0.0-0.7) 10/20/16 06:20 Baso # 0.0 10^3/uL (0.0-0.1) 10/20/16 06:20 Absolute Nucleated RBC 0.00 x10^3/uL 10/20/16 06:20 Nucleated RBCs 0.0 /100WBC 10/20/16 06:20 Manual Slide Review Indicated 10/16/16 22:50 Platelet Estimate NORMAL (130-450,000) (NORMAL) 10/16/16 22:50 Platelet Morphology NORMAL APPEARANCE (NORMAL) 10/16/16 22:50 ESR 5 mm/Hr (0-20) 10/14/16 05:39 PT 12.9 secs (9.9-12.6) H 10/17/16 07:53 INR 1.2 (0.8-1.2) 10/17/16 07:53 APTT 26.8 secs (24.9-33.3) 10/17/16 07:53 VBG pH 7.319 (7.31-7.41) 10/14/16 05:39 Ionized Calcium 1.13 mmol/L (1.15-1.33) L 10/14/16 05:39 Sodium 139 mmol/L (135-145) 10/20/16 06:20 Potassium 3.8 mmol/L (3.5-5.0) 10/20/16 06:20 Chloride 102 mmol/L (101-111) 10/20/16 06:20 Carbon Dioxide 28 mmol/L (21-32) 10/20/16 06:20 Anion Gap 9.0 (6-13) 10/20/16 06:20 BUN 6 mg/dL (6-20) 10/20/16 06:20 Creatinine 0.7 mg/dL (0.6-1.2) 10/20/16 06:20 Estimated GFR (MDRD) 118 (>89) 10/20/16 06:20 Glucose 184 mg/dL (70-100) H 10/20/16 06:20 POC Whole Bld Glucose 204 mg/dL (70 - 100) H 10/20/16 07:28 Glycated Hemoglobin 11.4 % (4.6-6.2) H 10/11/16 21:35 Estim Average Glucose 280 (70-100) H 10/11/16 21:35 Calcium 8.7 mg/dL (8.5-10.3) 10/20/16 06:20 Ionized Calcium NO 10/19/16 05:41 Phosphorus 3.8 mg/dL (2.5-4.6) 10/16/16 08:05 Magnesium 1.8 mg/dL (1.7-2.8) 10/16/16 08:05 Total Bilirubin 0.6 mg/dL (0.2-1.0) 10/20/16 06:20 AST 17 IU/L (10-42) 10/20/16 06:20 ALT 14 IU/L (10-60) 10/20/16 06:20 Alkaline Phosphatase 69 IU/L (42-121) 10/20/16 06:20 Troponin I < 0.04 ng/mL (<0.49) 10/17/16 16:39 Total Protein 6.0 g/dL (6.7-8.2) L 10/20/16 06:20 Albumin 3.4 g/dL (3.2-5.5) 10/20/16 06:20 Globulin 2.6 g/dL (2.1-4.2) 10/20/16 06:20 Albumin/Globulin Ratio 1.3 (1.0-2.2) 10/20/16 06:20 Amylase 25 U/L (28-100) L 10/11/16 21:35 Lipase 18 U/L (22-51) L 10/11/16 21:35 Urine Color YELLOW 10/12/16 18:20 Urine Clarity CLEAR (CLEAR) 10/12/16 18:20 Urine pH 6.5 PH (5.0-7.5) 10/12/16 18:20 Ur Specific [place] 1.010 (1.002-1.030) 10/12/16 18:20 Urine Protein NEGATIVE mg/dL (NEGATIVE) 10/12/16 18:20 Urine Glucose (UA) NEGATIVE mg/dL (NEGATIVE) 10/12/16 18:20 Urine Ketones TRACE mg/dL (NEGATIVE) 10/12/16 18:20 Urine Occult Blood NEGATIVE (NEGATIVE) 10/12/16 18:20 Urine Nitrite NEGATIVE (NEGATIVE) 10/12/16 18:20 Urine Bilirubin NEGATIVE (NEGATIVE) 10/12/16 18:20 Urine Urobilinogen 0.2 (NORMAL) E.U./dL (NORMAL) 10/12/16 18:20 Ur Leukocyte Esterase NEGATIVE (NEGATIVE) 10/12/16 18:20 Ur Microscopic Review NOT INDICATED 10/12/16 18:20 Urine Culture Comments NOT INDICATED 10/12/16 18:20 Stool Leukocytes, Qual NEGATIVE (Negative) 10/11/16 09:30 Stl Giardia Antigen TNP 10/11/16 09:30 Urine Opiates Screen POSITIVE (NEGATIVE) H 10/17/16 03:47 Ur Oxycodone Screen POSITIVE (NEGATIVE) H 10/17/16 03:47 Urine Methadone Screen NEGATIVE (NEGATIVE) 10/17/16 03:47 Ur Propoxyphene Screen NEGATIVE (NEGATIVE) 10/17/16 03:47 Ur Barbiturates Screen NEGATIVE (NEGATIVE) 10/17/16 03:47 Ur Tricyclics Screen NEGATIVE (NEGATIVE) 10/17/16 03:47 Ur Phencyclidine Scrn NEGATIVE (NEGATIVE) 10/17/16 03:47 Ur Amphetamine Screen NEGATIVE (NEGATIVE) 10/17/16 03:47 U Methamphetamines Scrn NEGATIVE (NEGATIVE) 10/17/16 03:47 U Benzodiazepines Scrn NEGATIVE (NEGATIVE) 10/17/16 03:47 Urine Cocaine Screen NEGATIVE (NEGATIVE) 10/17/16 03:47 U Cannabinoids Screen POSITIVE (NEGATIVE) H 10/17/16 03:47 Cryptosporidium Ag TNP 10/11/16 09:30 H. pylori IgG Antibody Negative (Negative) 10/11/16 21:35 Blood Type A POSITIVE 10/17/16 03:32 Blood Type Recheck A POSITIVE 10/17/16 05:43 Antibody Screen NEGATIVE 10/17/16 03:32 Crossmatch IS Only See Detail 10/17/16 03:32
[2016-10-20] MEDS: INSULIN ASPART 300 UNIT/3 ML PEN SUBQ SCH ×4 (08:35→20:41)
[2016-10-20] MEDS: GABAPENTIN 300 MG CAPSULE PO SCH ×4 (08:35→20:40)
[2016-10-20] MEDS: CALCIUM CARBONATE CHEW 500 MG TABLET PO SCH ×2 (08:35→20:40)
[2016-10-20] MEDS: HYDROCORTISONE 1% OINTMENT 28 GM TUBE TOP SCH ×2 (08:35→20:40)
[2016-10-20] MEDS: LISINOPRIL 5 MG TABLET PO SCH (08:35)
[2016-10-20] MEDS: POLYETHYLENE GLYCOL 3350 17 GM PACKET PO SCH (08:36)
[2016-10-20] MEDS: FAMOTIDINE 20 MG/50 ML 50 ML IV SCH ×2 (08:36→20:42)
[2016-10-20] MEDS: DOCUSATE SODIUM 250 MG CAPSULE PO SCH (08:36)
[2016-10-20] MEDS: SENNA 8.6 MG TABLET PO SCH (08:37)
[2016-10-20] MEDS: MORPHINE 2 MG/ML SYRINGE IVP PRN ×2 (19:32→20:14)
[2016-10-20] MEDS: ALPRAZolam 0.25 MG TABLET PO PRN (19:33)
[2016-10-20] MEDS: SODIUM CHLORIDE FLUSH 0.9% 10 ML SYRINGE IVP PRN ×3 (19:33→22:03)
[2016-10-20 20:20] LABS: BASOPHILS # (AUTO) 0.1 10^3/uL (0.0-0.1); BASOPHILS % (AUTO) 0.8 %; EOSINOPHILS # (AUTO) 0.3 10^3/uL (0.0-0.7); EOSINOPHILS % (AUTO) 4.1 %; HCT - HEMATOCRIT 33.8 % (42.0-52.0); HGB - HEMOGLOBIN 10.9 g/dL (14.0-18.0); LYMPHOCYTES # (AUTO) 1.5 10^3/uL (1.5-3.5); LYMPHOCYTES % (AUTO) 22.6 %; MEAN CORPUSCULAR HEMOGLOBIN 30.5 pg (27.0-31.0); MEAN CORPUSCULAR HGB CONC 32.3 g/dL (32.0-36.0); MEAN CORPUSCULAR VOLUME 94.4 fL (80.0-94.0); MEAN PLATELET VOLUME 10.3 fL (7.4-11.4); MONOCYTES # (AUTO) 0.7 10^3/uL (0.0-1.0); MONOCYTES % (AUTO) 11.3 %; NEUTROPHILS % (AUTO) 61.2 %; RED BLOOD COUNT 3.58 10^6/uL (4.70-6.10); RED CELL DISTRIBUTION WIDTH 13.7 % (12.0-15.0); UNCORRECTED WHITE BLOOD COUNT 6.6 x10^3/uL; WHITE BLOOD COUNT 6.6 x10^3/uL (4.8-10.8)
[2016-10-20] MEDS ORDERED: SODIUM CHLORIDE 0.9% 100ML 100 ML IV ONE (20:31)
[2016-10-20] MEDS: INSULIN GLARGINE 300 UNIT/3 ML PEN SUBQ SCH (20:41)
[2016-10-20] MEDS: ATORVASTATIN 10 MG TABLET PO SCH (20:42)
[2016-10-20 20:47] LABS: ALBUMIN/GLOBULIN RATIO 1.3 (1.0-2.2); BILIRUBIN,TOTAL 0.9 mg/dL (0.2-1.0); BUN - BLOOD UREA NITROGEN 6 mg/dL (6-20); CALCIUM 8.8 mg/dL (8.5-10.3); CARBON DIOXIDE - CO2 27 mmol/L (21-32); CHLORIDE 102 mmol/L (101-111); CREATININE 0.7 mg/dL (0.6-1.2); GFR - MDRD 118 (>89); GLUCOSE 267 mg/dL (70-100); MAGNESIUM 1.8 mg/dL (1.7-2.8); PHOSPHORUS 2.7 mg/dL (2.5-4.6); POTASSIUM 4.1 mmol/L (3.5-5.0); SODIUM 138 mmol/L (135-145)
[2016-10-20] MEDS ORDERED: MORPHINE 2 MG/ML SYRINGE IVP SCH (21:56)
[2016-10-20] MEDS ORDERED: IOPAMIDOL-300 100 ML VIAL IVP ONE (22:54)
[2016-10-20] MEDS ORDERED: ATORVASTATIN 40 MG TABLET PO STA (23:29)
[2016-10-20] MEDS ORDERED: ASPIRIN 325 MG TABLET PO STA (23:29)
--- NOTE | 2016-10-20 23:31 | CT Preliminary Report ---
Exam: CT Chest Angio (PE) IMPRESSION: 1. Negative CT pulmonary angiogram. No pulmonary emboli or acute aortic syndrome. 2. Decreasing upper abdominal hemoperitoneum and pneumoperitoneum. [facility] SITE ID: [id number]
--- NOTE | 2016-10-20 23:34 | CT Report ---
EXAM: CT ANGIOGRAM CHEST EXAM DATE: 10/20/2016 10:57 PM. CLINICAL HISTORY: Chest pain, tachycardia, recent surgery, +D-dimer. COMPARISON: 10/17/2016. TECHNIQUE: Routine helical imaging was performed through the chest in the pulmonary arterial phase. I V Contrast: Yes. Reconstructions: Coronal 3-D MIP reconstructions.Sagittal and coronal. In accordance with CT protocol optimization, one or more of the following dose reduction techniques w ere utilized for this exam: automated exposure control, adjustment of mA and/or KV based on patient s ize, or use of iterative reconstructive technique. FINDINGS: Pulmonary Arteries: Technically adequate for evaluation through the segmental arteries. No evidence f or acute or chronic pulmonary emboli. Lungs/Pleura: No pneumonia, suspicious nodules, or edema. No effusions or pneumothorax. Mediastinum: No acute aortic syndrome. No cardiac enlargement. No adenopathy. Upper Abdomen: Decrease in upper abdominal hemoperitoneum and pneumoperitoneum. No new abnormality se en. Other: None. IMPRESSION: 1. Negative CT pulmonary angiogram. No pulmonary emboli or acute aortic syndrome. 2. Decreasing upper abdominal hemoperitoneum and pneumoperitoneum. [facility] Referring Provider Line: [phone] SITE ID: [id number]
--- NOTE | 2016-10-21 | CT Preliminary Report ---
Exam: CT Head W/O Stroke Protocol IMPRESSION: Normal head CT. [facility] The above findings were discussed with Dr. Yeh by Dr. Wilman Bethea at 23:58 hrs on 10/20/16. SITE ID: [id number]
--- NOTE | 2016-10-21 00:03 | CT Report ---
EXAM: CT HEAD EXAM DATE: 10/19/2016. CLINICAL HISTORY: Left facial droop, left-sided weakness COMPARISON: None. TECHNIQUE: Multiaxial CT images were obtained from the foramen magnum to the vertex. IV contrast: Non e. Reformats: Coronal. In accordance with CT protocol optimization, one or more of the following dose reduction techniques w ere utilized for this exam: automated exposure control, adjustment of mA and/or KV based on patient s ize, or use of iterative reconstructive technique. FINDINGS: Parenchyma: No intraparenchymal hemorrhage. No evidence of mass, midline shift, or CT findings of inf arction. Lopez-white differentiation is distinct. Extraaxial Spaces: Normal for age. No subdural or epidural collections identified. Ventricles: Normal in size and position. Sinuses: Imaged paranasal sinuses, orbits, and mastoids show no significant abnormality. Bones: No evidence of fracture or calvarial defect. Other: None. IMPRESSION: Normal head CT. [facility] The above findings were discussed with Dr. Yeh by Dr. Wilman Bethea at 23:58 hrs on 10/20/16. Referring Provider Line: [phone] SITE ID: [id number]
--- NOTE | 2016-10-21 00:13 | PROVIDER PROGRESS NOTE ---
Videogame Tester Note - Videogame Tester Note Videogame Tester Note: Around 7:30 PM on 10/20/2016 the patient began complaining of pain in his midsternal area radiating up to his right neck and the patient was diaphoretic and tachycardic. At that time stat labs were ordered. Patient had normal electrolytes, troponin was negative and CBC showed a normal WBC with an improving hemoglobin of 10.9. The patient's pain persisted and he stated it was worsening. Patient's vital signs revealed that he was hypertensive and tachycardic. Patient continued to complain of pleuritic chest pain under his diaphragm given his history of recent surgery a d-dimer was ordered which was elevated at 713. At that time a stat CT angiogram the patient lungs was ordered to rule out a pulmonary embolism. The CT was negative for pulmonary embolism or acute aortic syndrome. It did show decreasing upper abdominal hemoperitoneum and pneumoperitoneum. The patient still had an EKG which showed a normal sinus rhythm with no ST elevations or ischemic changes. The patient was given morphine for his continued pain.
--- NOTE | 2016-10-21 00:27 | PROVIDER PROGRESS NOTE ---
Banking Assistant Note - Banking Assistant Note Banking Assistant Note: After the patient returned from CT scan I was called into the room at around 11: 15 PM on 10/21/2016. Initially the patient was complaining of numbness on the left side of his face. The patient then began having slurred speech, and appeared to have left facial droop. The patient on examination was found to have left-sided weakness with 1/5 strength in his left lower extremity and 3/5 strength in his left upper extremity. The patient had facial droop but did not have any gaze deviation. The patient was sent for a CT head stat with stroke protocol. The CT head was negative for a bleed or an acute intracranial changes. [facility] tele stroke was called and I spoke with Dr. Nadia Waldrop neurologist who stated the patient was not a candidate for TPA given his recent intra-peritoneal bleed. She recommended a stat CT angiogram of the head and neck. And advised that I call her back with the results. radiology: CT angiogram of the lungs Impression: 1. Negative CT pulmonary angiogram. No pulmonary emboli or acute aortic syndrome. 2. Decreasing upper abdominal hemoperitoneum and pneumoperitoneum. CT head Impression: Normal CT. Venous Doppler lower extremities bilateral Negative for DVT Vital signs: Temperature:36.8C Blood pressure: 143/95 Heart rate:105 Respiratory rate:18 O2 saturation:100% on room air General: patient has slurred speech, he appears to be in acute distress, he has obvious left facial droop. HEENT: Pupils are equal and react to light, extraocular muscles are intact, mucous membranes are moist, there is no conjunctival pallor or scleral icterus noted Neck: Supple, no thyromegaly, no JVD, trachea is midline. Lymph nodes: No cervical or axillary lymphadenopathy is noted Cardiovascular: S1-S2, tachycardic, no murmurs, no rubs, no gallops. Lungs: Clear to auscultation bilaterally, no wheezing, no rhonchi, no crackles. Patient is not using accessory muscles of breathing. Patient is not in any respiratory distress. Abdomen: Soft, diffusely tender, nondistended, bowel sounds are present in all 4 quadrants, no rebound, positive guarding, there are no peritoneal signs. Extremities: No lower extremity edema, peripheral pulses are palpable, no cyanosis or clubbing is noted tender calves bilaterally Musculoskeletal: No joint effusions, no joint tenderness, no muscle tenderness, normal range of motion. Skin: No skin turgor, no skin rashes, no skin lesions, no cellulitis or abscesses are noted. skin is moist Neurologic: slurred/garbled speech, left facial droop, no gaze deviation, left upper (3/5) and lower extremity (2/5) weakness, sensations are intact. Assessment and Plan: 1. Left facial droop and left-sided weakness: Patient appears to likely had a acute stroke CT head is negative CT angiogram the neck is pending [facility] neurology tele stroke Dr. Nadia Waldrop was consulted and patient is not a candidate for TPA given his recent hemoperitoneum. Dr. Nadia Waldrop requested CT angiogram head and neck which is pending Plan: Neurochecks every 4 hours Telemetry monitoring Start aspirin 325 give stat then daily Start Lipitor 80 mg give stat and daily Echocardiogram MRI brain Lipid profile Laboratory Results WBC 6.6 x10^3/uL (4.8-10.8) 10/20/16 20:12 RBC 3.58 10^6/uL (4.70-6.10) L 10/20/16 20:12 Hgb 10.9 g/dL (14.0-18.0) L 10/20/16 20:12 Hct 33.8 % (42.0-52.0) L 10/20/16 20:12 MCV 94.4 fL (80.0-94.0) H 10/20/16 20:12 MCH 30.5 pg (27.0-31.0) 10/20/16 20:12 MCHC 32.3 g/dL (32.0-36.0) 10/20/16 20:12 RDW 13.7 % (12.0-15.0) 10/20/16 20:12 Plt Count 204 10^3/uL (130-450) 10/20/16 20:12 MPV 10.3 fL (7.4-11.4) 10/20/16 20:12 Neut # 4.0 10^3/uL (1.5-6.6) 10/20/16 20:12 Lymph # 1.5 10^3/uL (1.5-3.5) 10/20/16 20:12 Barron # 0.7 10^3/uL (0.0-1.0) 10/20/16 20:12 Eos # 0.3 10^3/uL (0.0-0.7) 10/20/16 20:12 Baso # 0.1 10^3/uL (0.0-0.1) 10/20/16 20:12 Absolute Nucleated RBC 0.00 x10^3/uL 10/20/16 20:12 Nucleated RBCs 0.0 /100WBC 10/20/16 20:12 Manual Slide Review Indicated 10/16/16 22:50 Platelet Estimate NORMAL (130-450,000) (NORMAL) 10/16/16 22:50 Platelet Morphology NORMAL APPEARANCE (NORMAL) 10/16/16 22:50 ESR 5 mm/Hr (0-20) 10/14/16 05:39 PT 12.9 secs (9.9-12.6) H 10/17/16 07:53 INR 1.2 (0.8-1.2) 10/17/16 07:53 APTT 26.8 secs (24.9-33.3) 10/17/16 07:53 D-Dimer 713.9 ng/mL (200.0-255.0) H 10/20/16 20:12 VBG pH 7.319 (7.31-7.41) 10/14/16 05:39 Ionized Calcium 1.13 mmol/L (1.15-1.33) L 10/14/16 05:39 Sodium 138 mmol/L (135-145) 10/20/16 20:12 Potassium 4.1 mmol/L (3.5-5.0) 10/20/16 20:12 Chloride 102 mmol/L (101-111) 10/20/16 20:12 Carbon Dioxide 27 mmol/L (21-32) 10/20/16 20:12 Anion Gap 9.0 (6-13) 10/20/16 20:12 BUN 6 mg/dL (6-20) 10/20/16 20:12 Creatinine 0.7 mg/dL (0.6-1.2) 10/20/16 20:12 Estimated GFR (MDRD) 118 (>89) 10/20/16 20:12 Glucose 267 mg/dL (70-100) H 10/20/16 20:12 POC Whole Bld Glucose 182 mg/dL (70 - 100) H 10/20/16 13:55 Glycated Hemoglobin 11.4 % (4.6-6.2) H 10/11/16 21:35 Estim Average Glucose 280 (70-100) H 10/11/16 21:35 Calcium 8.8 mg/dL (8.5-10.3) 10/20/16 20:12 Ionized Calcium NO 10/20/16 20:12 Phosphorus 2.7 mg/dL (2.5-4.6) 10/20/16 20:12 Magnesium 1.8 mg/dL (1.7-2.8) 10/20/16 20:12 Total Bilirubin 0.9 mg/dL (0.2-1.0) 10/20/16 20:12 AST 26 IU/L (10-42) 10/20/16 20:12 ALT 16 IU/L (10-60) 10/20/16 20:12 Alkaline Phosphatase 77 IU/L (42-121) 10/20/16 20:12 Troponin I < 0.04 ng/mL (<0.49) 10/20/16 20:12 Total Protein 7.0 g/dL (6.7-8.2) 10/20/16 20:12 Albumin 4.0 g/dL (3.2-5.5) 10/20/16 20:12 Globulin 3.0 g/dL (2.1-4.2) 10/20/16 20:12 Albumin/Globulin Ratio 1.3 (1.0-2.2) 10/20/16 20:12 Amylase 25 U/L (28-100) L 10/11/16 21:35 Lipase 18 U/L (22-51) L 10/11/16 21:35 Urine Color YELLOW 10/12/16 18:20 Urine Clarity CLEAR (CLEAR) 10/12/16 18:20 Urine pH 6.5 PH (5.0-7.5) 10/12/16 18:20 Ur Specific [place] 1.010 (1.002-1.030) 10/12/16 18:20 Urine Protein NEGATIVE mg/dL (NEGATIVE) 10/12/16 18:20 Urine Glucose (UA) NEGATIVE mg/dL (NEGATIVE) 10/12/16 18:20 Urine Ketones TRACE mg/dL (NEGATIVE) 10/12/16 18:20 Urine Occult Blood NEGATIVE (NEGATIVE) 10/12/16 18:20 Urine Nitrite NEGATIVE (NEGATIVE) 10/12/16 18:20 Urine Bilirubin NEGATIVE (NEGATIVE) 10/12/16 18:20 Urine Urobilinogen 0.2 (NORMAL) E.U./dL (NORMAL) 10/12/16 18:20 Ur Leukocyte Esterase NEGATIVE (NEGATIVE) 10/12/16 18:20 Ur Microscopic Review NOT INDICATED 10/12/16 18:20 Urine Culture Comments NOT INDICATED 10/12/16 18:20 Stool Leukocytes, Qual NEGATIVE (Negative) 10/20/16 11:01 Stl Giardia Antigen TNP 10/11/16 09:30 Urine Opiates Screen POSITIVE (NEGATIVE) H 10/17/16 03:47 Ur Oxycodone Screen POSITIVE (NEGATIVE) H 10/17/16 03:47 Urine Methadone Screen NEGATIVE (NEGATIVE) 10/17/16 03:47 Ur Propoxyphene Screen NEGATIVE (NEGATIVE) 10/17/16 03:47 Ur Barbiturates Screen NEGATIVE (NEGATIVE) 10/17/16 03:47 Ur Tricyclics Screen NEGATIVE (NEGATIVE) 10/17/16 03:47 Ur Phencyclidine Scrn NEGATIVE (NEGATIVE) 10/17/16 03:47 Ur Amphetamine Screen NEGATIVE (NEGATIVE) 10/17/16 03:47 U Methamphetamines Scrn NEGATIVE (NEGATIVE) 10/17/16 03:47 U Benzodiazepines Scrn NEGATIVE (NEGATIVE) 10/17/16 03:47 Urine Cocaine Screen NEGATIVE (NEGATIVE) 10/17/16 03:47 U Cannabinoids Screen POSITIVE (NEGATIVE) H 10/17/16 03:47 Cryptosporidium Ag TNP 10/11/16 09:30 H. pylori IgG Antibody Negative (Negative) 10/11/16 21:35 Blood Type A POSITIVE 10/17/16 03:32 Blood Type Recheck A POSITIVE 10/17/16 05:43 Antibody Screen NEGATIVE 10/17/16 03:32 Crossmatch IS Only See Detail 10/17/16 03:32
[2016-10-21] MEDS ORDERED: IOPAMIDOL-300 100 ML VIAL IVP ONE (00:38)
--- NOTE | 2016-10-21 00:52 | Ultrasound Preliminary Report ---
Exam: US Duplex Ext Veins Bilateral IMPRESSION: No evidence for deep venous thrombosis bilaterally. [facility] SITE ID: [id number]
--- NOTE | 2016-10-21 00:54 | Ultrasound Report ---
EXAM: BILATERAL LOWER EXTREMITY VENOUS ULTRASOUND EXAM DATE: 10/20/2016 11:29 PM. CLINICAL HISTORY: Bilateral calf pain with recent surgery. COMPARISON: None. TECHNIQUE: Real-time sonographic vascular imaging was performed by the wellfield technician through the lower extremities utilizing both color-flow and Doppler spectral analysis. Multiple claims customer service representative static i mages were saved for review. FINDINGS: Right: Common Femoral Vein (CFV): Normal. CFV-GSV Junction: Normal. Profunda Femoral Vein (PFV): Normal. Femoral Vein (FV) Prox: Normal. Femoral Vein (FV) Mid: Normal. Femoral Vein (FV) Dist: Normal. Popliteal Vein: Normal. Posterior Tibial Veins: Normal. Peroneal Veins: Normal. Left: Common Femoral Vein (CFV): Normal. CFV-GSV Junction: Normal. Profunda Femoral Vein (PFV): Normal. Femoral Vein (FV) Prox: Normal. Femoral Vein (FV) Mid: Normal. Femoral Vein (FV) Dist: Normal. Popliteal Vein: Normal. Posterior Tibial Veins: Normal. Peroneal Veins: Normal. Other: None. IMPRESSION: No evidence for deep venous thrombosis bilaterally. [facility] Referring Provider Line: [phone] SITE ID: [id number]
[2016-10-21] MEDS: MORPHINE 2 MG/ML SYRINGE IVP PRN ×3 (01:19→09:01)
--- NOTE | 2016-10-21 01:21 | CT Preliminary Report ---
Exam: CT Neck Angio IMPRESSION: 1. Less than 15% narrowing of proximal left ICA. 2. Right carotid calcification without stenosis. [facility] The above findings were discussed with Dr. Waldrop by Dr. Wilman Bethea at 01:20 hrs on 10/21/16. SITE ID: [id number]
--- NOTE | 2016-10-21 01:24 | CT Report ---
EXAM: CT ANGIOGRAM NECK EXAM DATE: 10/21/2016 12:35 AM. CLINICAL HISTORY: Left facial droop and left sided weakness. COMPARISON: None. TECHNIQUE: Routine axial helical imaging was performed from the skull base through the aortic arch. I V Contrast: Yes, 80 mL Isovue 300. Reconstructions: Routine multiplanar 3D MIP reconstructions. Evalu ation of arterial stenosis is based on a NASCET method of measurement. In accordance with CT protocol optimization, one or more of the following dose reduction techniques w ere utilized for this exam: automated exposure control, adjustment of mA and/or KV based on patient s ize, or use of iterative reconstructive technique. FINDINGS: Right Carotid: The common carotid, internal carotid, and external carotid arteries are widely patent. There is callus calcification of the proximal ICA. Left Carotid: The common carotid is normal in caliber. There is eccentric less than 15% narrowing of the proximal ICA. ICA otherwise normal in caliber. ECA unremarkable. Vertebrals: Proximal left vertebral artery obscured by venous contrast. Vertebral arteries are otherw ise unremarkable. The vertebrobasilar system shows no stenoses. Intracranial Circulation: Normal. No stenoses or aneurysms of the visualized vessels. Other: Lung apices are clear. There is a 10 mm left thyroid nodule. Soft tissues of neck otherwise un remarkable. Patient status post prior C3-C4 and C6/7 anterior fusions. IMPRESSION: 1. Less than 15% narrowing of proximal left ICA. 2. Right carotid calcification without stenosis. [facility] The above findings were discussed with Dr. Waldrop by Dr. Wilman Bethea at 01:20 hrs on 10/21/16. Referring Provider Line: [phone] SITE ID: [id number]
--- NOTE | 2016-10-21 01:25 | CT Preliminary Report ---
Exam: CT Head Angio IMPRESSION: 1. Normal head CT angiogram. No stenoses or aneurysms. 2. Normal postcontrast head CT[facility] SITE ID: [id number]
--- NOTE | 2016-10-21 01:27 | CT Report ---
EXAM: CT ANGIOGRAM HEAD AND POSTCONTRAST HEAD CT EXAM DATE: 10/21/2016 12:35 AM. CLINICAL HISTORY: Left facial droop and left sided weakness. COMPARISON: Noncontrast head CT 10/20/2016. TECHNIQUE: Routine helical CTA imaging was performed through the head. IV Contrast: Yes, 80 mL Isovue 300. Reconstructions: Routine multiplanar 3D MIP reconstructions. NASCET Criteria are used for steno sis measurements. In accordance with CT protocol optimization, one or more of the following dose reduction techniques w ere utilized for this exam: automated exposure control, adjustment of mA and/or KV based on patient s ize, or use of iterative reconstructive technique. FINDINGS: Anterior Circulation: The internal carotid arteries (ICA), middle cerebral arteries (MCA), and anteri or cerebral arteries (ROBERTO) are patent bilaterally. The anterior communicating artery (A-COM) appears patent. No aneurysms, stenoses, or anatomic anomalies evident. Posterior Circulation: The superior vertebral artery, basilar, and posterior cerebral arteries (INDUSTRIAL ENG) are patent. No aneurysms, stenoses, or anomalies evident. The posterior communicating arteries (P-COM ) are patent bilaterally. There is no enhancing abnormality. There is normal opacification of the venous sinuses. IMPRESSION: 1. Normal head CT angiogram. No stenoses or aneurysms. 2. Normal postcontrast head CT. [facility] Referring Provider Line: [phone] SITE ID: [id number]
--- NOTE | 2016-10-21 02:05 | PROVIDER PROGRESS NOTE ---
Hospitalist Cross-cover Note - Cross-Cover Note Cross-Cover Note: CTA of the head and neck were negative. Results were discussed with Dr. winifred Waldrop neurologist at [facility] phone number [phone]. She stated that this was likely a small vessel occlusion and was reassured by the fact that there was no cortical signs. She recommended that the patient undergo an MRI in the morning along with an echocardiogram. She recommended that she be seen by physical therapy and be placed in inpatient stroke rehabilitation as soon as possible. She also recommended continued neuro checks and permissive hypertension.
[2016-10-21] MEDS: SODIUM CHLORIDE 0.9% 1,000 ML IV SCH ×3 (03:30→16:10)
[2016-10-21 06:01] LABS: CHOL/HDL RATIO 2.7 (<5.0); CHOLESTEROL 112 mg/dL; HDL CHOLESTEROL 41 mg/dL; LDL/HDL RATIO 1.3 (<3.6); TRIGLYCERIDES 94 mg/dL; VLDL CHOLESTEROL 19 mg/dL
[2016-10-21] MEDS: SODIUM CHLORIDE FLUSH 0.9% 10 ML SYRINGE IVP SCH ×3 (06:59→21:07)
[2016-10-21] MEDS: HYOSCYAMINE SL 0.125 MG TABLET SL SCH ×3 (07:02→19:11)
[2016-10-21] MEDS: DOCUSATE SODIUM 250 MG CAPSULE PO SCH (09:00)
[2016-10-21] MEDS: POLYETHYLENE GLYCOL 3350 17 GM PACKET PO SCH (09:00)
[2016-10-21] MEDS: SENNA 8.6 MG TABLET PO SCH (09:00)
[2016-10-21] MEDS: GABAPENTIN 300 MG CAPSULE PO SCH ×4 (09:00→21:04)
[2016-10-21] MEDS: LISINOPRIL 5 MG TABLET PO SCH (09:00)
[2016-10-21] MEDS: ASPIRIN 325 MG TABLET PO SCH (09:00)
[2016-10-21] MEDS: CALCIUM CARBONATE CHEW 500 MG TABLET PO SCH ×2 (09:00→21:04)
[2016-10-21] MEDS: FAMOTIDINE 20 MG/50 ML 50 ML IV SCH ×2 (09:01→21:04)
[2016-10-21] MEDS: HYDROCORTISONE 1% OINTMENT 28 GM TUBE TOP SCH ×2 (09:01→21:05)
[2016-10-21] MEDS: INSULIN ASPART 300 UNIT/3 ML PEN SUBQ SCH ×4 (09:15→21:05)
[2016-10-21] MEDS: ALPRAZolam 0.25 MG TABLET PO PRN ×2 (11:30→21:04)
--- NOTE | 2016-10-21 11:40 | PROVIDER PROGRESS NOTE ---
Assessment/Plan - Problem List (1) Abdominal pain Qualifiers: Abdominal location: generalized Qualified Code(s): R10.84 - Generalized abdominal pain Assessment/Plan: He has lots of different pains in the last 48 hours. He says the abdominal pain is a 9-10 No further assessment at this time. (2) Diabetes Qualifiers: Diabetes mellitus type: type 2 Assessment/Plan: His control has modestly improved. Will continue presnt program and increase nutrition coverage when he is eating again. - Current Meds Current Meds: Current Medications Generic Name Dose Route Start Last Admin Trade Name Freq PRN Reason Stop Dose Admin Acetaminophen 650 mg 10/16/16 15:08 10/19/16 20:44 Tylenol PO 650 mg Q4HR PRN Administration Pain or Fever > 38C (100.4F) Alprazolam 0.25 mg 10/17/16 15:34 10/21/16 11:30 Xanax PO 0.25 mg Q6HR PRN Administration Anxiety Aspirin 325 mg 10/21/16 08:00 10/21/16 09:00 Paulina PO 325 mg DAILYWM ESTHER Administration Calcium Carbonate/Glycine 500 mg 10/14/16 09:00 10/21/16 09:00 Tums PO 500 mg BID ESTHER Administration Carboxymethylcellulose 0 drops 10/17/16 21:59 10/17/16 22:32 Refresh 1% Ophth Drops EACHEYE 1 drops PRN PRN Administration Dry Eye Docusate Sodium 250 - 500 mg 10/18/16 09:00 10/20/16 08:36 Colace 250mg Capsule PO Not Given DAILY ESTHER Gabapentin 300 mg 10/15/16 10:40 10/21/16 09:00 Neurontin PO 300 mg QID ESTHER Administration Hydrocortisone 1 applic 10/14/16 09:00 10/21/16 09:01 Hydrocortisone TOP 1 applic BID ESTHER Administration Hyoscyamine 0.125 mg 10/12/16 07:00 10/21/16 07:02 Levsin SL 0.125 mg AC ESTHER Administration Famotidine 50 mls @ 100 mls/hr 10/11/16 23:45 10/21/16 09:01 Pepcid 20 Mg/50 Ml IV 100 mls/hr BID ESTHER Administration Sodium Chloride 1,000 mls @ 150 mls/hr 10/21/16 02:00 10/21/16 08:23 Normal Saline 0.9% IV 150 mls/hr .Q6H40M ESTHER Administration Insulin Aspart 1 - 9 unit 10/19/16 17:00 10/21/16 09:15 Novolog SUBQ Not Given 0800,1200,1700,2100 [facility] Protocol Insulin Glargine 10 unit 10/12/16 21:00 10/20/16 20:41 Lantus Solostar SUBQ 10 unit QPM ESTHER Administration Lisinopril 5 mg 10/15/16 09:00 10/21/16 09:00 Zestril PO 5 mg DAILY ESTHER Administration Metoclopramide HCl 5 mg 10/11/16 23:34 10/18/16 09:24 Reglan Inj IVP 5 mg Q6HR PRN Administration Abdominal Pain Ondansetron HCl 4 mg 10/11/16 23:31 10/15/16 18:12 Zofran Inj IVP 4 mg Q6HR PRN Administration Nausea / Vomiting Oxycodone HCl 5 mg 10/15/16 10:03 10/20/16 14:30 Roxicodone PO 5 mg Q4HR PRN Administration PAIN Polyethylene Glycol 17 gm 10/12/16 09:00 10/20/16 08:36 Miralax PO Not Given DAILY ESTHER Scopolamine HBr 1 patch 10/18/16 11:00 10/18/16 11:08 Transderm-Scop TOP 1 patch Q3D ESTHER Administration Senna 8.6 - 17.2 mg 10/18/16 09:00 10/20/16 08:37 Senokot PO Not Given DAILY ESTHER Sodium Chloride 10 ml 10/11/16 23:31 10/20/16 22:03 Normal Saline Flush 0.9% IVP 10 ml PRN PRN Administration NEEDED PER PROVIDER ORDERS Sodium Chloride 10 ml 10/12/16 06:00 10/21/16 06:59 Normal Saline Flush 0.9% IVP Not Given Q8HR ESTHER Zolpidem Tartrate 5 mg 10/14/16 00:08 10/20/16 00:21 Ambien PO 5 mg QPM PRN Administration Insomnia - Lab Result Fish Bone Diagrams: 10/20/16 20:12 10/20/16 20:12 - Additional Planning My Orders: My Active Orders 10/20/16 10:50 MISC TEST QUEST AMBIENT [REFLAB] Routine 10/21/16 06:25 NPO except Meds [DIET] Subjective - Subjective Patient Reports: Abdominal Pain, Pain Nursing Reports: Pain Objective Vital Signs: Vital Signs - 24 hr 10/20/16 10/20/16 10/20/16 15:59 19:20 19:30 Temperature 36.8 C Heart Rate [ 83 121 H 109 H Brachial] Respiratory 18 Rate Blood Pressure 118/80 145/101 H 154/105 H [Left Brachial artery] O2 Saturation 100 10/20/16 10/21/16 10/21/16 21:45 01:12 07:03 Temperature 36.8 C 36.7 C Heart Rate [ 105 H 90 76 Brachial] Respiratory 16 16 Rate Blood Pressure 143/95 H 125/88 H 113/80 [Left Brachial artery] O2 Saturation 100 99 98 10/21/16 08:23 Temperature 36.6 C Heart Rate [ 75 Brachial] Respiratory 18 Rate Blood Pressure 120/81 H [Left Brachial artery] O2 Saturation 98 Oxygen O2 Source Room air I&O (Last 24 Hrs): Intake and Output Totals x24h 10/19/16 10/20/16 10/21/16 23:59 23:59 23:59 Intake Total 2608 1357 850 Output Total 1700 1200 Balance 908 1357 -350 General: Alert, Oriented x3, Cooperative HEENT: PERRLA, EOMI Neck: No JVD, No thyromegaly Neuro: Alert, Oriented Times 3 Cardiovascular: Regular rate, No murmurs Respiratory: Chest non-tender, No respiratory distress, Breath sounds nml Abdomen: Normal bowel sounds, Soft, No tenderness Genitourinary: Normal Inspection Extremities: No clubbing, No cyanosis, No edema Skin: No rashes, No breakdown - Results Results: Laboratory Results WBC 6.6 x10^3/uL (4.8-10.8) 10/20/16 20:12 RBC 3.58 10^6/uL (4.70-6.10) L 10/20/16 20:12 Hgb 10.9 g/dL (14.0-18.0) L 10/20/16 20:12 Hct 33.8 % (42.0-52.0) L 10/20/16 20:12 MCV 94.4 fL (80.0-94.0) H 10/20/16 20:12 MCH 30.5 pg (27.0-31.0) 10/20/16 20:12 MCHC 32.3 g/dL (32.0-36.0) 10/20/16 20:12 RDW 13.7 % (12.0-15.0) 10/20/16 20:12 Plt Count 204 10^3/uL (130-450) 10/20/16 20:12 MPV 10.3 fL (7.4-11.4) 10/20/16 20:12 Neut # 4.0 10^3/uL (1.5-6.6) 10/20/16 20:12 Lymph # 1.5 10^3/uL (1.5-3.5) 10/20/16 20:12 [place] # 0.7 10^3/uL (0.0-1.0) 10/20/16 20:12 Eos # 0.3 10^3/uL (0.0-0.7) 10/20/16 20:12 Baso # 0.1 10^3/uL (0.0-0.1) 10/20/16 20:12 Absolute Nucleated RBC 0.00 x10^3/uL 10/20/16 20:12 Nucleated RBCs 0.0 /100WBC 10/20/16 20:12 Manual Slide Review Indicated 10/16/16 22:50 Platelet Estimate NORMAL (130-450,000) (NORMAL) 10/16/16 22:50 Platelet Morphology NORMAL APPEARANCE (NORMAL) 10/16/16 22:50 ESR 5 mm/Hr (0-20) 10/14/16 05:39 PT 12.9 secs (9.9-12.6) H 10/17/16 07:53 INR 1.2 (0.8-1.2) 10/17/16 07:53 APTT 26.8 secs (24.9-33.3) 10/17/16 07:53 D-Dimer 713.9 ng/mL (200.0-255.0) H 10/20/16 20:12 VBG pH 7.319 (7.31-7.41) 10/14/16 05:39 Ionized Calcium 1.13 mmol/L (1.15-1.33) L 10/14/16 05:39 Sodium 138 mmol/L (135-145) 10/20/16 20:12 Potassium 4.1 mmol/L (3.5-5.0) 10/20/16 20:12 Chloride 102 mmol/L (101-111) 10/20/16 20:12 Carbon Dioxide 27 mmol/L (21-32) 10/20/16 20:12 Anion Gap 9.0 (6-13) 10/20/16 20:12 BUN 6 mg/dL (6-20) 10/20/16 20:12 Creatinine 0.7 mg/dL (0.6-1.2) 10/20/16 20:12 Estimated GFR (MDRD) 118 (>89) 10/20/16 20:12 Glucose 267 mg/dL (70-100) H 10/20/16 20:12 POC Whole Bld Glucose 203 mg/dL (70 - 100) H 10/21/16 11:26 Glycated Hemoglobin 11.4 % (4.6-6.2) H 10/11/16 21:35 Estim Average Glucose 280 (70-100) H 10/11/16 21:35 Calcium 8.8 mg/dL (8.5-10.3) 10/20/16 20:12 Ionized Calcium NO 10/20/16 20:12 Phosphorus 2.7 mg/dL (2.5-4.6) 10/20/16 20:12 Magnesium 1.8 mg/dL (1.7-2.8) 10/20/16 20:12 Total Bilirubin 0.9 mg/dL (0.2-1.0) 10/20/16 20:12 AST 26 IU/L (10-42) 10/20/16 20:12 ALT 16 IU/L (10-60) 10/20/16 20:12 Alkaline Phosphatase 77 IU/L (42-121) 10/20/16 20:12 Troponin I < 0.04 ng/mL (<0.49) 10/20/16 20:12 Total Protein 7.0 g/dL (6.7-8.2) 10/20/16 20:12 Albumin 4.0 g/dL (3.2-5.5) 10/20/16 20:12 Globulin 3.0 g/dL (2.1-4.2) 10/20/16 20:12 Albumin/Globulin Ratio 1.3 (1.0-2.2) 10/20/16 20:12 Triglycerides 94 mg/dL (-149) 10/21/16 05:15 Cholesterol 112 mg/dL (-199) 10/21/16 05:15 LDL Cholesterol, Calc 52 mg/dL (-129) 10/21/16 05:15 VLDL Cholesterol 19 mg/dL 10/21/16 05:15 HDL Cholesterol 41 mg/dL (60-) L 10/21/16 05:15 LDL/HDL Ratio 1.3 (<3.6) 10/21/16 05:15 Cholesterol/HDL Ratio 2.7 (<5.0) 10/21/16 05:15 Amylase 25 U/L (28-100) L 10/11/16 21:35 Lipase 18 U/L (22-51) L 10/11/16 21:35 Urine Color YELLOW 10/12/16 18:20 Urine Clarity CLEAR (CLEAR) 10/12/16 18:20 Urine pH 6.5 PH (5.0-7.5) 10/12/16 18:20 Ur Specific [place] 1.010 (1.002-1.030) 10/12/16 18:20 Urine Protein NEGATIVE mg/dL (NEGATIVE) 10/12/16 18:20 Urine Glucose (UA) NEGATIVE mg/dL (NEGATIVE) 10/12/16 18:20 Urine Ketones TRACE mg/dL (NEGATIVE) 10/12/16 18:20 Urine Occult Blood NEGATIVE (NEGATIVE) 10/12/16 18:20 Urine Nitrite NEGATIVE (NEGATIVE) 10/12/16 18:20 Urine Bilirubin NEGATIVE (NEGATIVE) 10/12/16 18:20 Urine Urobilinogen 0.2 (NORMAL) E.U./dL (NORMAL) 10/12/16 18:20 Ur Leukocyte Esterase NEGATIVE (NEGATIVE) 10/12/16 18:20 Ur Microscopic Review NOT INDICATED 10/12/16 18:20 Urine Culture Comments NOT INDICATED 10/12/16 18:20 Stool Leukocytes, Qual NEGATIVE (Negative) 10/20/16 11:01 Stl Giardia Antigen TNP 10/11/16 09:30 Urine Opiates Screen POSITIVE (NEGATIVE) H 10/17/16 03:47 Ur Oxycodone Screen POSITIVE (NEGATIVE) H 10/17/16 03:47 Urine Methadone Screen NEGATIVE (NEGATIVE) 10/17/16 03:47 Ur Propoxyphene Screen NEGATIVE (NEGATIVE) 10/17/16 03:47 Ur Barbiturates Screen NEGATIVE (NEGATIVE) 10/17/16 03:47 Ur Tricyclics Screen NEGATIVE (NEGATIVE) 10/17/16 03:47 Ur Phencyclidine Scrn NEGATIVE (NEGATIVE) 10/17/16 03:47 Ur Amphetamine Screen NEGATIVE (NEGATIVE) 10/17/16 03:47 U Methamphetamines Scrn NEGATIVE (NEGATIVE) 10/17/16 03:47 U Benzodiazepines Scrn NEGATIVE (NEGATIVE) 10/17/16 03:47 Urine Cocaine Screen NEGATIVE (NEGATIVE) 10/17/16 03:47 U Cannabinoids Screen POSITIVE (NEGATIVE) H 10/17/16 03:47 Cryptosporidium Ag TNP 10/11/16 09:30 H. pylori IgG Antibody Negative (Negative) 10/11/16 21:35 Blood Type A POSITIVE 10/17/16 03:32 Blood Type Recheck A POSITIVE 10/17/16 05:43 Antibody Screen NEGATIVE 10/17/16 03:32 Crossmatch IS Only See Detail 10/17/16 03:32
--- NOTE | 2016-10-21 12:37 | MRI Preliminary Report ---
Exam: MRI Brain W/O Impression: 1. A very mild amount of white matter disease is identified as described. The findings are relatively nonspecific and differential diagnostic considerations would include virtually the entire abdomen wh ite matter disease. The clinical significance is uncertain. 2. Otherwise unremarkable, unenhanced brain MRI. In particular, there is no evidence of acute cerebra l infarction. SITE ID: [id number]
[2016-10-21] MEDS: oxyCODONE 5 MG TABLET PO PRN ×2 (14:08→19:15)
[2016-10-21] MEDS: SCOPOLAMINE PATCH TOP SCH (14:09)
--- NOTE | 2016-10-21 14:51 | MRI Report ---
MRI BRAIN WITHOUT CONTRAST CLINICAL HISTORY: 51-year-old male with left-sided weakness, facial droop, and slurred speech. Concer n for CVA. Please assess. COMPARISON: Head CT 10/20/2016. TECHNIQUE: 1. T1 sagittal and fat-saturated T2 coronal. 2. Axial T1, FLAIR, T2, T2*, and DWI. FINDINGS: Ventricular size is normal. A mild amount of white matter disease is identified in the supratentorial brain, manifested as small T2 hyperintensities that are scattered throughout the frontoparietal white matter. A deep/subcortical distribution predominates. There appears to be minimal, if any, involvement of the immediate periven tricular regions. No pathology is seen in the corpus callosum, brainstem, cerebellar peduncles or cer ebellar white matter. Flow voids are demonstrated in the main intracranial arteries. No abnormal diffusion restriction is d emonstrated. No evidence of acute or chronic hemorrhage on T2* GRE sequence. No abnormal extra-axial fluid collection. No mass effect or midline shift. Limited assessment of the orbits reveals no gross pathology. Changes of previous ocular lens extracti on are noted bilaterally. A mucous retention cyst is demonstrated in the alveolar recess of the right maxillary sinus. There is mild mucosal thickening scattered throughout the ethmoid air cells. The paranasal sinuses are otherw ise clear. No mastoid or middle ear effusion is demonstrated. IMPRESSION: 1. A very mild amount of white matter disease is identified as described. The findings are relatively nonspecific and differential diagnostic considerations would include virtually the entire gamut of w jori matter disease. The clinical significance is uncertain. 2. Otherwise unremarkable, unenhanced brain MRI. In particular, there is no evidence of acute cerebra l infarction. Referring Provider Line: [phone] SITE ID: [id number]
[2016-10-21 20:31] LABS: TEST RESULT REPORT (())
[2016-10-21] MEDS ORDERED: ATORVASTATIN 40 MG TABLET PO SCH (21:00)
[2016-10-21] MEDS: INSULIN GLARGINE 300 UNIT/3 ML PEN SUBQ SCH (21:06)
[2016-10-22] MEDS: ZOLPIDEM 5 MG TABLET PO PRN (00:10)
[2016-10-22] MEDS: SODIUM CHLORIDE 0.9% 1,000 ML IV SCH ×3 (00:36→15:21)
[2016-10-22] MEDS: oxyCODONE 5 MG TABLET PO PRN ×3 (04:12→12:28)
--- NOTE | 2016-10-22 05:31 | OPERATIVE REPORT ---
DATE OF SURGERY: 10/19/2016 00:00:00 PREOPERATIVE DIAGNOSIS: Status post diagnostic laparoscopy with lysis of adhesions with postoperative intraabdominal hematoma. POSTOPERATIVE DIAGNOSIS: Status post diagnostic laparoscopy with lysis of adhesions with postoperative intraabdominal hematoma, with no intraabdominal bleeding currently being seen. NAME OF PROCEDURES 1. Diagnostic laparoscopy. 2. Evacuation of intraabdominal hematoma. SURGEON: Thomas España MD ANESTHESIA: General. INDICATION FOR PROCEDURE: The patient is a 51-year-old male who is 2 days post diagnostic laparoscopy with lysis of adhesions for unexplained abdominal pain. Postoperatively, his hemoglobin did decrease and then did stabilize from 13 to 14 down to 9. He was hemodynamically stable at this time. He did not appear to have any ongoing abdominal bleeding. However, the patient was concerned about the blood inside his abdomen and what would happen with his abdominal pain. As previously stated to him, it is unknown whether the adhesions were actually causing his abdominal pain or whether he had functional problems with his intestine causing the pain. Because of this, the intraabdominal hematoma could make it more difficult to determine whether the hematoma was actually the cause of his pain being very unlikely versus a functional disorder. Because of this, the patient was very insistent upon his wishes to have him undergo a diagnostic laparoscopy and evacuation of the hematoma, and control any bleeding. I have explained that hematomas usually do not cause any abdominal pain and leaving it in the body would absorb it. There is also a possibility of stirring up bleeding again. The patient acknowledges that I have explained this to him and fully accepts any risks with further procedures. FINDINGS AT SURGERY: The patient had intraabdominal hematoma on the right side going up to the liver. I did not see any active bleeding at this time. The hematoma was evacuated. PROCEDURE: After informed consent was obtained, the patient was taken to the operating room and placed in the supine position. General endotracheal anesthesia was administered. The patient's abdomen was then prepped and draped in usual sterile fashion. The previous stitches holding the midline abdominal infraumbilical incision were then incised. A 5 mm Optiview trocar was then inserted through the previous incision and fashioned into the abdominal cavity under direct vision. The abdomen was then insufflated. A 5 mm port was then placed through the previous incision in the left lower quadrant. A 5 mm port was then placed in the right upper quadrant under direct vision. The intraabdominal hematoma was then evacuated. Looking along the right gutter where most of the dissection was, I did not see any bleeding. The abdomen was then copiously irrigated, again fully inspecting the area I did not see any intraabdominal bleeding at this time. The port sites were not a source of the bleed as they were clean without any hematoma or bleeding. The ports were then removed and no bleeding was noted at the port sites with the abdomen then being desufflated. The umbilical fascial defect was closed using 0 Vicryl suture. The skin incisions were closed using 4-0 Monocryl subcuticular stitch. Dermabond was then applied. The patient was then awakened, extubated and taken from the operating room in stable condition. ESTIMATED BLOOD LOSS: Less than 5 mL. COMPLICATIONS: None. CONDITION OF PATIENT AT END OF PROCEDURE: Stable. SPECIMENS: None. DRAINS/PACKS: None. CLASSIFICATION OF WOUND: Clean. JOB #: [id number] EXT JOB #:[id number]
[2016-10-22] MEDS: HYOSCYAMINE SL 0.125 MG TABLET SL SCH ×2 (06:35→10:25)
[2016-10-22] MEDS: SODIUM CHLORIDE FLUSH 0.9% 10 ML SYRINGE IVP SCH ×2 (06:36→12:29)
[2016-10-22] MEDS: ASPIRIN 325 MG TABLET PO SCH (08:18)
[2016-10-22] MEDS: CALCIUM CARBONATE CHEW 500 MG TABLET PO SCH (08:18)
[2016-10-22] MEDS: LISINOPRIL 5 MG TABLET PO SCH (08:18)
[2016-10-22] MEDS: SENNA 8.6 MG TABLET PO SCH (08:18)
[2016-10-22] MEDS: GABAPENTIN 300 MG CAPSULE PO SCH ×2 (08:18→12:28)
[2016-10-22] MEDS: INSULIN ASPART 300 UNIT/3 ML PEN SUBQ SCH ×2 (08:19→12:28)
[2016-10-22] MEDS: FAMOTIDINE 20 MG/50 ML 50 ML IV SCH (08:19)
[2016-10-22] MEDS: DOCUSATE SODIUM 250 MG CAPSULE PO SCH (08:19)
[2016-10-22] MEDS: POLYETHYLENE GLYCOL 3350 17 GM PACKET PO SCH (08:20)
[2016-10-22] MEDS: HYDROCORTISONE 1% OINTMENT 28 GM TUBE TOP SCH (08:28)
[2016-10-22] MEDS: SODIUM CHLORIDE FLUSH 0.9% 10 ML SYRINGE IVP PRN (11:30)
[2016-10-22] MEDS ORDERED: IOPAMIDOL-300 100 ML VIAL IVP ONE (12:00)
--- NOTE | 2016-10-22 14:24 | Discharge Plan ---
Discharge Plan Disposition: Home, Self Care Condition: Good Prescriptions: oxyCODONE [Roxicodone] 5 mg PO Q4HR PRN #30 tablet PRN Reason: Pain Zolpidem [Ambien] 5 mg PO QPM PRN #10 tablet PRN Reason: Insomnia Diet: Regular Activity Restrictions: Activity as Tolerated Shower Restrictions: No Driving Restrictions: Yes Weight Bearing: Full Weight Instruction Topics: Abdominal Pain, Diabetes Senior Care Complications, Hyperglycemia, Lysis of Adhesions Additional Instructions or Follow Up instructions: Use heat for stomach soreness make appts to see your PCP and Dr. España the surgeon, his appt in 14 days or so. No Smoking: If you smoke, Please STOP! Call for help. Follow-up with: Bhanu Lopez PA-C [Credentialed Staff Provider] - 1 Week Thomas España MD [Provider Admit Priv/Credential] - 2 Weeks
[2016-10-22 15:21] VITALS: BP 121/83
--- NOTE | 2016-10-22 16:04 | CT Report ---
CT OF THE ABDOMEN AND PELVIS WITH AND WITHOUT CONTRAST: 10/22/2016 CLINICAL INDICATION: Postop pain. TECHNIQUE: Axial CT images of the abdomen and pelvis were obtained prior to and following 100 mL of Isovue-300 intravenously. Oral contrast was also administered. COMPARISON: 10/12/2016. FINDINGS: Limited evaluation of the lung bases is unremarkable. ABDOMEN: On the unenhanced images, there is no evidence of nephrolithiasis or hydronephrosis. There is hematoma in the right paracolic gutter, without evidence of active hemorrhage, measuring 9.5 cm craniocaudal by 7 cm transverse by 2.7 cm thick. The liver, spleen, pancreas, kidneys and adrenal glands are unremarkable. The gallbladder is not dilated. No bowel dilatation, free gas, or free fluid is present. No abdominal adenopathy is seen. PELVIS: Small amounts of subcutaneous emphysema are noted anteriorly, likely related to previous surgery. No pelvic adenopathy or free fluid is present. The osseous structures are unremarkable. IMPRESSION: HEMATOMA IN THE RIGHT PARACOLIC GUTTER. NO EVIDENCE OF ACTIVE HEMORRHAGE. In accordance with CT protocol optimization, one or more of the following dose reduction techniques were utilized for this exam: automated exposure control, adjustment of mA and/or KV based on patient size, or use of iterative reconstructive technique. JOB #: [id number] EXT JOB #: [id number] YARY
--- NOTE | 2016-10-25 07:19 | DISCHARGE SUMMARY ---
DATE OF ADMISSION: 10/15/2016 DATE OF DISCHARGE: 10/22/2016 ADMISSION DIAGNOSES: 1. Recurrent abdominal pain. 2. Type 2 diabetes, chronic. DISCHARGE DIAGNOSES: 1. Recurrent abdominal pain uncertain etiology. 2. Abdominal adhesions status post lysis. 3. Hemoperitoneum from laparoscopy #1. 4. Blood clot in pelvic region of the abdomen status post second laparoscopy. CONSULTATIONS: Thomas España MD. PROCEDURES: 1. Two laparoscopies. 2. EGD. 3. Colonoscopy. DISCHARGE DIAGNOSES: 1. Type 2 diabetes treated with insulin. 2. Peripheral neuropathy. 3. Chronic back pain. HOSPITAL COURSE AND MANAGEMENT: The initial presentation, the emergency evaluation and the hospital p hayden are well described in the History and Physical, see copy of same. SUMMARY: This is a 51-year-old male who for the past several weeks has had abdominal pain, recently h ospitalized for several days, [facility] for 7 days and discharged yesterday. He did have a mild elevation in his lipase, otherwise normal white count, normal chemistries. He had an ultrasound that did not show any abnormality. He also had a surgical consult done while in the hospital. He did get slightly better and was discharged on clear liquid diet, apparently had 2 large burgers today and now has diffuse abdominal pain with some nausea and no vomiting. He did admit to some loose stools and i s having problems with abdominal pain. He does have type 2 diabetes and is on insulin for control. Th e patient was admitted to the hospital for bowel rest, surgical consultation. The following day he wa s seen by Dr. España and prepped for a colonoscopy. He had the colonoscopy and EGD which did not show any gross pathology and biopsies are pending. The patient then had continued pain and was reevaluate d at the emergency department per the surgical consultative physician, Dr. España, who thought he lux uld have a laparoscopy. After the patient's second laparoscopy he had continued pain in his abdomen a nd additional complaints including leg pain and perceived leg swelling, left chest pain, later left a rm weakness, speech slurring, facial weakness perceived, and the patient had a workup which included a CTA of the chest, MRA of the head and neck, a CT of the head and an MR of the brain, all of which w ere negative. The patient was so informed and then had a new complaint of pain and swelling in his in guinal area over the top of his thigh. The patient had a final CT of the abdomen which showed a small 7 x 3 x 8 clot in the lower right abdomen, residual from his previous laparoscopy without any active bleeding. The patient was discharged to home. ALLERGIES: 1. CINNAMON. 2. LYRICA. HOME MEDICATIONS: 1. Januvia 100 mg daily. 2. Lipitor 10 mg daily. 3. Lantus 25 mg q. p.m. 4. Novolog 10 units t.i.d. with meals. 5. Flexeril 10 mg t.i.d. as needed. 6. Gabapentin 300 mg q.i.d. 7. Lisinopril 5 mg daily. 8. Oxycodone q. 4 hours p.r.n. #30. 9. Ambien 5 mg q. p.m. #10. 10. Tylenol 650 q. 4 hours as needed. VITAL SIGNS: 36.7, 106, 118/79, 16, 98% room air saturation. HEENT: Eyes: EOMs within normal limits. PERRLA, nonicteric. Mouth and throat: Poor dentition, otherwi se no pathology mouth or pharynx. NECK: No lymphadenopathy, no thyromegaly. CHEST: Chest wall nontender, symmetric. LUNGS: The patient's lungs were clear. ABDOMEN: Soft. He complains of pain, tenderness near the inguinal line just above and below it. Bowel sounds are present. EXTREMITIES: Without edema. NEURO: Cognitive intact. Cranial nerves intact. Motor intact. Gait intact. SKIN: No suspicious lesions. LABORATORY DATA: White count 6.6, 10.9 and 33 hemoglobin and hematocrit, platelets were 204, sodium 1 38, potassium 4.1, chloride 102, CO2 27, BUN 6, creatinine 0.7, glucose was 267, on day of discharge 162. The patient is to followup in 2 weeks with the patient's surgeon, Dr. España, and is to be seen by hi s PCP in the next 1 to 2 weeks. The patient was examined on the day of discharge. TIME SPENT ON DISCHARGE: 60 minutes. Time spent extensively by social work, case management, nursing staff and this physician in arranging his discharge. JOB #: [id number] EXT JOB #:[id number]
== END 2016-10-22 15:50 | disposition home or self-care (01) | DRG 336 ==
LOC: EDUNIT# → ED 21:04 → MS 23:31 → OBSVTOIN 10-15 10:25 → MS 10-15 11:03
PROVIDERS: ADMIT Specialist; ATTEND Internal Medicine
PROC: 0DB68ZX Excision of Stomach, Via Natural or Artificial Opening Endoscopic, Diagnostic (ICD-10-PCS; 2016-10-14)
PROC: 0DBN8ZZ Excision of Sigmoid Colon, Via Natural or Artificial Opening Endoscopic (ICD-10-PCS; 2016-10-14)
PROC: 0DBE8ZX Excision of Large Intestine, Via Natural or Artificial Opening Endoscopic, Diagnostic (ICD-10-PCS; 2016-10-14)
PROC: 0DNF4ZZ Release Right Large Intestine, Percutaneous Endoscopic Approach (ICD-10-PCS; principal; 2016-10-16 09:00)
PROC: 0WCG4ZZ Extirpation of Matter from Peritoneal Cavity, Percutaneous Endoscopic Approach (ICD-10-PCS; 2016-10-18)
DX: R10.84 Generalized abdominal pain (principal); K91.870 Postprocedural hematoma of a digestive system organ or structure following a digestive system procedure; K66.0 Peritoneal adhesions (postprocedural) (postinfection); E11.42 Type 2 diabetes mellitus with diabetic polyneuropathy; D12.5 Benign neoplasm of sigmoid colon; K63.89 Other specified diseases of intestine; E87.6 Hypokalemia; R29.810 Facial weakness; R53.1 Weakness; G89.29 Other chronic pain; M54.9 Dorsalgia, unspecified; I10 Essential (primary) hypertension; Y83.8 Other surgical procedures as the cause of abnormal reaction of the patient, or of later complication, without mention of misadventure at the time of the procedure; Y92.234 Operating room of hospital as the place of occurrence of the external cause; Z79.4 Long term (current) use of insulin; Z79.891 Long term (current) use of opiate analgesic; Z79.899 Other long term (current) drug therapy; Z98.1 Arthrodesis status; Z87.891 Personal history of nicotine dependence
CPT/HCPCS: 36415; 70450; 70496; 70498; 70551; 71010; 71275; 74174; 74178; 80053; 80061; 80306; 81001; 81003; 81599; 82150; 82270; 82330; 83036; 83630; 83690; 83735; 84100; 84484; 85014; 85018; 85025; 85379; 85610; 85651; 85730; 86850; 86900; 86901; 86920; 87015; 87045; 87046; 87077; 87086; 87272; 87329; 87339; 87493; 88305; 93005; 93306; 93970; 96361; 96365; 96366; 96374; 96375; 96376; 99283; 99284; 99285

== ENCOUNTER 2016-10-22 21:12 | Outpatient (CLI) | payer MEDICAID | END 2016-10-22 21:13 | disposition critical access hospital (66) | LOC: EMS 21:12 | PROVIDERS: ATTEND Surgery | DX: R10.9 Unspecified abdominal pain (principal); K62.89 Other specified diseases of anus and rectum; R11.0 Nausea; F41.9 Anxiety disorder, unspecified | CPT/HCPCS: A0425; A0427 ==

== ENCOUNTER 2016-10-22 21:36 | Emergency (ER) | payer MEDICAID ==
[2016-10-22] MEDS ORDERED: MORPHINE 10 MG/ML VIAL IVP STA (22:03)
[2016-10-22] MEDS ORDERED: ONDANSETRON 4 MG/2 ML VIAL IVP STA (22:03)
[2016-10-22] MEDS ORDERED: MORPHINE 10 MG/ML VIAL ONE (22:09)
[2016-10-22] MEDS ORDERED: ONDANSETRON 4 MG/2 ML VIAL ONE (22:09)
[2016-10-22 22:28] LABS: BASOPHILS # (AUTO) 0.1 10^3/uL (0.0-0.1); BASOPHILS % (AUTO) 0.6 %; EOSINOPHILS # (AUTO) 0.1 10^3/uL (0.0-0.7); EOSINOPHILS % (AUTO) 1.3 %; HCT - HEMATOCRIT 33.1 % (42.0-52.0); HGB - HEMOGLOBIN 10.9 g/dL (14.0-18.0); LYMPHOCYTES # (AUTO) 1.5 10^3/uL (1.5-3.5); LYMPHOCYTES % (AUTO) 16.9 %; MEAN CORPUSCULAR HEMOGLOBIN 30.7 pg (27.0-31.0); MEAN CORPUSCULAR VOLUME 92.9 fL (80.0-94.0); MEAN PLATELET VOLUME 9.5 fL (7.4-11.4); MONOCYTES # (AUTO) 1.2 10^3/uL (0.0-1.0); NEUTROPHILS # (AUTO) 6.1 10^3/uL (1.5-6.6); NEUTROPHILS % (AUTO) 68.2 %; RED BLOOD COUNT 3.57 10^6/uL (4.70-6.10); RED CELL DISTRIBUTION WIDTH 13.4 % (12.0-15.0)
[2016-10-22 22:45] LABS: ALBUMIN/GLOBULIN RATIO 1.2 (1.0-2.2); BILIRUBIN,TOTAL 0.5 mg/dL (0.2-1.0); CALCIUM 9.2 mg/dL (8.5-10.3); CREATININE 0.7 mg/dL (0.6-1.2); POTASSIUM 3.8 mmol/L (3.5-5.0); TOTAL PROTEIN 7.1 g/dL (6.7-8.2)
[2016-10-22 22:46] LABS: CREATINE KINASE MB 1.3 ng/mL (0.6-6.3)
[2016-10-22 22:47] LABS: TROPONIN I < 0.04 ng/mL (<0.49)
[2016-10-22 22:58] LABS: BILIRUBIN,URINE NEGATIVE (NEGATIVE)
[2016-10-22 23:00] LABS: UA CHARGE (STRIP ONLY) YES; UR CULTURE IF IND NOT INDICATED
[2016-10-22] MEDS ORDERED: IOPAMIDOL-300 100 ML VIAL IVP ONE (23:21)
--- NOTE | 2016-10-22 23:56 | CT Preliminary Report ---
Exam: CT Abdomen/Pelvis W/ IMPRESSION: 1. Stable hematoma along right paracolic gutter. No new findings. RADIA The above findings were discussed with Barbara by Dr. Allan Peng at 23:53 hrs on 10/22/16. SITE ID: [id number]
--- NOTE | 2016-10-22 23:58 | CT Report ---
EXAM: CT ABDOMEN AND PELVIS EXAM DATE: 10/22/2016 11:24 PM. CLINICAL HISTORY: Fever, worsening abdominal pain right side. COMPARISONS: 10/22/2016 11:40 AM. TECHNIQUE: Routine helical CT imaging was performed through the abdomen and pelvis. IV contrast: 85 m L Isovue 300. Enteric contrast: No. Reconstructions: Coronal and sagittal. In accordance with CT protocol optimization, one or more of the following dose reduction techniques w ere utilized for this exam: automated exposure control, adjustment of mA and/or KV based on patient s ize, or use of iterative reconstructive technique. FINDINGS: Lung Bases: Unremarkable. Liver: Normal. No masses. Gallbladder/Bile Ducts: Unremarkable. Spleen: Normal. Pancreas: Normal. Adrenal Glands: Normal. Kidneys: Normal. No masses or hydronephrosis. Peritoneal Cavity/Bowel: Blood products again seen tracking along the right paracolic gutter from the inferior tip of the liver to the base of the cecum. This measures 2.7 cm in thickness and is unchang ed in size and appearance from the previous CT. No active bleeding seen. There is no oral contrast ex travasation. No pneumoperitoneum. The appendix is well visualized and normal. Pelvic Organs: Small volume of fluid within the pelvis, stable. Air collection seen along the inguina l canals to scrotum likely secondary to trocar placement. Vasculature: No aneurysms or other significant abnormality. Bones: No significant abnormality. Other: None. IMPRESSION: 1. Stable hematoma along right paracolic gutter. No new findings. RADIA The above findings were discussed with Barbara by Dr. Allan Peng at 23:53 hrs on 10/22/16. Referring Provider Line: [phone] SITE ID: [id number]
[2016-10-23] MEDS ORDERED: SODIUM CHLORIDE 0.9% 1,000 ML IV ONE (01:29)
[2016-10-23] MEDS ORDERED: diphenhydrAMINE INJ 50 MG/ML VIAL IVP STA (01:31)
[2016-10-23] MEDS ORDERED: DEXAMETHASONE 10 MG/ML VIAL IVP STA (01:31)
[2016-10-23] MEDS ORDERED: INSULIN GLARGINE 300 UNIT/3 ML PEN SUBQ STA (01:32)
--- NOTE | 2016-10-23 01:36 | ED Physician Documentation ---
PD HPI ABD PAIN - Stated complaint Stated Complaint: PAIN/FEVER/POST SURG - Chief complaint Chief Complaint: Fever - History obtained from History obtained from: Patient, EMS - History of Present Illness Timing - onset: Today Timing - duration: Hours Timing - details: Gradual onset, Still present, Waxing and waning Pain level max: >10 Pain level now: >10 Quality: Sharp, Pain Location: RUQ, RLQ Radiation: Right flank Improved by: Laying still Worsened by: Moving, Position, Palpation Associated symptoms: Fever, Nausea Similar symptoms before: Work up / diagnostics Recently seen: Emergency Dept, Admitted, Surgery - Additional information Additional information: 51 y/o type 2 diabetic bipolar male has developed abdominal pain over the past month. He has had multiple evaluations and he has been admitted to [facility] for pancreatitis and then one day later he was admitted here for abdominal pain. He was in the hospital here for 10 days and his evaluation included CT, U/s, upper and lower scoping, ex lap with lysis of adhesions and lap for removal of hematoma and evaluation for bleeding. He was discharged this afternoon from the hospital and his stay here was complicated by a left sided TIA that may have been ficticious. This evening he has developed abdominal pain in the right lower and right upper quadrant, a fever, nausea and diarrhea. He has dramatic pain behavior and on initial evaluation he looks like he might be in withdrawal. He states that his pain was better earlier in the day and this evening he developed the worsening severe pain in waves, fever and drainage from his wounds. He points to a spot on his underwear about 2mm in size to demonstrate the drainage. He has recently moved to the area from [place] after he was evicted and he has been staying with a friend here on [facility] since August. Since his arrival to the [place] he indicates he has been in better health than usual but he has been evaluated in the ED here 7 times. 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 He has been evaluated for abdominal pain a number of times as well. No significant findings. While he was in [place] last summer he was not able to walk and was wheelchair bound for about 4 months. No cause was discovered. He has developed gynecomastia from use of respiradone. He has a pattern of dramatic presentations without findings. Review of Systems Constitutional: reports: Fever, Chills, Myalgias, Fatigue, Weight Loss, Sweats Eyes: denies: Decreased vision Ears: denies: Ear pain Nose: denies: Rhinorrhea / runny nose, Congestion Throat: denies: Sore throat Cardiac: denies: Chest pain / pressure, Palpitations Respiratory: denies: Dyspnea, Cough GI: reports: Abdominal Pain, Nausea, Diarrhea. denies: Vomiting : denies: Dysuria, Frequency Skin: reports: Rash (typical of his pemphagoid) Musculoskeletal: reports: Neck pain (chronically), Back pain, Extremity pain ( The right leg is hurting) Neurologic: denies: Generalized weakness, Focal weakness, Numbness PD PAST MEDICAL HISTORY - Past Medical History Cardiovascular: High cholesterol Respiratory: None Neuro: Headache/migraine, Peripheral neuropathy, Fainting Endocrine/Autoimmune: Type 2 diabetes GI: None : Kidney stones Psych: Depression, Bipolar disorder Musculoskeletal: Chronic back pain Derm: Other - Past Surgical History Past Surgical History: Yes General: Appendectomy - Present Medications Home Medications: Ambulatory Orders Medication Instructions Recorded Confirmed Atorvastatin [Lipitor] 10 mg PO QPM 08/18/16 10/22/16 Cyclobenzaprine [Flexeril] 10 mg PO TID PRN 08/18/16 10/22/16 Gabapentin 300 mg PO QID 08/18/16 10/22/16 Insulin Aspart [NovoLOG] 10 units SQ TID 08/18/16 10/22/16 Lisinopril 5 mg PO DAILY 08/18/16 10/22/16 Insulin Glargine [Lantus] 25 unit SQ QPM 30 Days 09/18/16 10/22/16 SITagliptin [Januvia] 100 mg PO DAILY 09/22/16 10/22/16 Acetaminophen [Tylenol] 650 mg PO Q4HR PRN #0 tablet 10/22/16 10/22/16 Zolpidem [Ambien] 5 mg PO QPM PRN #10 tablet 10/22/16 10/22/16 oxyCODONE [Roxicodone] 5 mg PO Q4HR PRN #30 tablet 10/22/16 10/22/16 - Allergies Allergies/Adverse Reactions: Allergies Allergy/AdvReac Type Severity Reaction Status Date / Time cinnamon Allergy Unknown Verified 10/22/16 21:47 pregabalin [From Lyrica] Allergy Unknown Verified 10/22/16 21:47 - Social History Does the pt smoke?: No Smoking Status: Never smoker Does the pt drink ETOH?: No Does the pt have substance abuse?: Yes - Immunizations Immunizations are current?: Yes PD ED PE NORMAL - Vitals Vital signs reviewed: Yes (tachy, low grade fever and hypertensive ) - General General: Well developed/nourished, Other (The patient is exhibiting dramatic or hysterical pain behavior with hyperventilation, moaning and winching. ) - HEENT HEENT: Atraumatic, PERRL, EOMI, Other (dry mucous membranes. ) - Cardiac Cardiac: No murmur, Other (tachy to 100) - Respiratory Respiratory: No respiratory distress, Clear bilaterally - Abdomen Abdomen: Soft, Other (There is hysterical pain to palpation of the lower abdomen and worse on the right. There are 4 port wounds all appear to be healing well without signs of inflamation or drainage. ) - Back Back: No CVA TTP, No spinal TTP - Derm Derm: Normal color, Warm and dry, No rash - Extremities Extremities: No deformity, No edema - Neuro Neuro: No motor deficit, No sensory deficit - Psych Psych: Normal affect, Other (mood is painful ) Results - Vitals Vitals: Vital Signs - 24 hr 10/22/16 10/23/16 10/23/16 21:41 00:00 03:33 Temperature 37.7 C H 37.1 C Heart Rate 119 H 101 H 90 Respiratory 22 18 16 Rate Blood Pressure 132/86 H 123/74 100/74 O2 Saturation 96 96 96 10/23/16 05:04 Temperature Heart Rate 90 Respiratory 16 Rate Blood Pressure 109/76 O2 Saturation 97 Oxygen O2 Source Room air - Labs Labs: Laboratory Tests 10/22/16 10/22/16 10/22/16 22:20 22:20 22:20 WBC 9.0 RBC 3.57 L Hgb 10.9 L Hct 33.1 L MCV 92.9 MCH 30.7 MCHC 33.0 RDW 13.4 Plt Count 259 MPV 9.5 Neut # 6.1 Lymph # 1.5 [place] # 1.2 H Eos # 0.1 Baso # 0.1 Absolute Nucleated RBC 0.00 Nucleated RBCs 0.0 ESR Sodium 137 Potassium 3.8 Chloride 103 Carbon Dioxide 26 Anion Gap 8.0 BUN 7 Creatinine 0.7 Estimated GFR (MDRD) 118 Glucose 296 H Calcium 9.2 Total Bilirubin 0.5 AST 17 ALT 15 Alkaline Phosphatase 77 Total Creatine Kinase 64 CK-MB (CK-2) 1.3 Troponin I < 0.04 C-Reactive Protein 2.8 H Total Protein 7.1 Albumin 3.8 Globulin 3.3 Albumin/Globulin Ratio 1.2 Lipase 13 L Urine Color Urine Clarity Urine pH Ur Specific [place] Urine Protein Urine Glucose (UA) Urine Ketones Urine Occult Blood Urine Nitrite Urine Bilirubin Urine Urobilinogen Ur Leukocyte Esterase Ur Microscopic Review Urine Culture Comments Urine Opiates Screen Ur Oxycodone Screen Urine Methadone Screen Ur Propoxyphene Screen Ur Barbiturates Screen Ur Tricyclics Screen Ur Phencyclidine Scrn Ur Amphetamine Screen U Methamphetamines Scrn U Benzodiazepines Scrn Urine Cocaine Screen U Cannabinoids Screen 10/22/16 10/22/16 22:20 22:51 WBC RBC Hgb Hct MCV MCH MCHC RDW Plt Count MPV Neut # Lymph # [place] # Eos # Baso # Absolute Nucleated RBC Nucleated RBCs ESR 44 H Sodium Potassium Chloride Carbon Dioxide Anion Gap BUN Creatinine Estimated GFR (MDRD) Glucose Calcium Total Bilirubin AST ALT Alkaline Phosphatase Total Creatine Kinase CK-MB (CK-2) Troponin I C-Reactive Protein Total Protein Albumin Globulin Albumin/Globulin Ratio Lipase Urine Color YELLOW Urine Clarity CLEAR Urine pH 6.0 Ur Specific [place] 1.010 Urine Protein NEGATIVE Urine Glucose (UA) >=1000 H Urine Ketones NEGATIVE Urine Occult Blood NEGATIVE Urine Nitrite NEGATIVE Urine Bilirubin NEGATIVE Urine Urobilinogen 0.2 (NORMAL) Ur Leukocyte Esterase NEGATIVE Ur Microscopic Review NOT INDICATED Urine Culture Comments NOT INDICATED Urine Opiates Screen POSITIVE H Ur Oxycodone Screen POSITIVE H Urine Methadone Screen NEGATIVE Ur Propoxyphene Screen NEGATIVE Ur Barbiturates Screen NEGATIVE Ur Tricyclics Screen NEGATIVE Ur Phencyclidine Scrn NEGATIVE Ur Amphetamine Screen NEGATIVE U Methamphetamines Scrn NEGATIVE U Benzodiazepines Scrn NEGATIVE Urine Cocaine Screen NEGATIVE U Cannabinoids Screen POSITIVE H - Rads (name of study) CT abdomen and pelvis with Radiology: Prelim report reviewed (Impression: 1. Stable hematoma along right paracolic gutter. No new findings.), EMP read indepedently, See rad report Procedures - IVC sono (time) 2150 Bedside IVC sono: IVC measures (cm) (0.98), IVC collapsed c insp (cm) (complete) , Dehydration PD MEDICAL DECISION MAKING - ED course Complexity details: reviewed old records, reviewed results, re-evaluated patient , considered differential, d/w patient ED course: 51 y/o male with acute hysterical abdominal pain appeared to be in withdrawal at the time of initial evaluation but I examined the record and I was not able to find regular use of narcotic on the floor over the past 10 days and this thus seems unlikely. His pain behavior was so excessive and his recent history was compelling enough to search for a verifiable condition to cause this catastrophic pain. We repeated the CT scan done earlier in the day and true to form there are no concerning findings. Without treatment the patients pain symptoms improved. He was still restless and complaining of pain. He did have low grade fever on arrival and I thought it prudent to observe the patient in the department. I found him to be mildly dehydrated and with a glucose of 293 we treated the dehydration with a liter of saline. His inflammatory markers were elevated and he was given a dose of decadron and benadryl. He was given his nighttime dose of insulin as well. He seemed to improve further and slept. 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 During observation here I was not able to conclusively demonstrate deception but I do suspect it. The patient does appear to have type 2 diabetes, he has had an appendectomy and he has had cervical fusion procedure and hardware in his neck. He does pose a disposition problem in that he is sleeping on a couch at a friends house and despite what he calls a hostile environment with the friends the patient readily accepts going back to this home. Departure - Departure Disposition: 01 Home, Self Care Clinical Impression: Abdominal pain Qualifiers: Abdominal location: right lower quadrant Qualified Code(s): R10.31 - Right lower quadrant pain Condition: Stable Instructions: ED Abdominal Pain Unkn Cause Male Follow-Up: [facility] [Provider Group] Comments: Today we were not able to identify anything within the abdomen to account for the severe pain you are having. Your wounds appear to be healing well and do not appear infected. Inside the abdomen there are no new findings and nothing to explain the extent of the pain. Follow up with your primary care doctor and the surgeon as planned.
[2016-10-23] MEDS ORDERED: DEXAMETHASONE 10 MG/ML VIAL ONE (01:39)
[2016-10-23] MEDS ORDERED: diphenhydrAMINE INJ 50 MG/ML VIAL ONE (01:39)
[2016-10-23 06:48] VITALS: BP 114/73
== END 2016-10-23 06:35 | disposition home or self-care (01) ==
LOC: EDUNIT# → ED 21:36
DX: R10.31 Right lower quadrant pain (principal); R10.11 Right upper quadrant pain; E86.0 Dehydration; F68.10 Factitious disorder imposed on self, unspecified; E11.42 Type 2 diabetes mellitus with diabetic polyneuropathy; Z79.4 Long term (current) use of insulin; F31.9 Bipolar disorder, unspecified; E78.00 Pure hypercholesterolemia, unspecified; Z87.442 Personal history of urinary calculi
CPT/HCPCS: 36415; 74177; 80053; 80306; 81003; 82550; 82553; 83690; 84484; 85025; 85651; 86140; 87040; 96374; 96375; 99284; 99285; J1815; Q9967; 81001; 87086

== ENCOUNTER 2016-10-27 10:30 | Outpatient (CLI) | payer MEDICAID | END 2016-10-27 10:45 | disposition home or self-care (01) | LOC: RT.N 10:30 | PROVIDERS: ATTEND Physician Assistant | DX: E11.9 Type 2 diabetes mellitus without complications (principal) | CPT/HCPCS: 93005 ==

== ENCOUNTER 2016-10-30 01:29 | Outpatient (CLI) | payer MEDICAID | END 2016-10-30 01:30 | disposition critical access hospital (66) | LOC: EMS 01:29 | PROVIDERS: ATTEND Surgery | DX: R10.9 Unspecified abdominal pain (principal) | CPT/HCPCS: A0425; A0427 ==

== ENCOUNTER 2016-10-30 02:01 | Emergency (ER) | payer MEDICAID ==
[2016-10-30 02:59] LABS: EOSINOPHILS # (AUTO) 0.2 10^3/uL (0.0-0.7); HGB - HEMOGLOBIN 10.7 g/dL (14.0-18.0); LYMPHOCYTES # (AUTO) 1.8 10^3/uL (1.5-3.5); MEAN PLATELET VOLUME 9.1 fL (7.4-11.4)
[2016-10-30 03:01] LABS: BASOPHILS % (AUTO) 0.5 %; EOSINOPHILS % (AUTO) 2.4 %; HCT - HEMATOCRIT 31.4 % (42.0-52.0); LYMPHOCYTES % (AUTO) 22.7 %; MEAN CORPUSCULAR HEMOGLOBIN 30.7 pg (27.0-31.0); MEAN CORPUSCULAR VOLUME 90.1 fL (80.0-94.0); MONOCYTES % (AUTO) 12.3 %; NEUTROPHILS % (AUTO) 62.1 %; RED BLOOD COUNT 3.48 10^6/uL (4.70-6.10); RED CELL DISTRIBUTION WIDTH 13.5 % (12.0-15.0)
[2016-10-30 03:12] LABS: ALBUMIN/GLOBULIN RATIO 1.2 (1.0-2.2); BILIRUBIN,TOTAL 0.4 mg/dL (0.2-1.0); CALCIUM 8.1 mg/dL (8.5-10.3); CREATININE 0.6 mg/dL (0.6-1.2); POTASSIUM 3.5 mmol/L (3.5-5.0); TOTAL PROTEIN 6.5 g/dL (6.7-8.2)
[2016-10-30] MEDS ORDERED: KETOROLAC 15 MG/ML VIAL IVP STA (03:21)
[2016-10-30] MEDS ORDERED: KETOROLAC 30 MG/ML VIAL ONE (03:24)
[2016-10-30] MEDS ORDERED: KETOROLAC 30 MG/ML VIAL IVP STA (03:24)
[2016-10-30 03:29] LABS: BILIRUBIN,URINE NEGATIVE (NEGATIVE); PH,URINE 5.5 PH (5.0-7.5)
[2016-10-30 03:36] LABS: UA CHARGE (STRIP ONLY) YES; UR CULTURE IF IND NOT INDICATED
[2016-10-30] MEDS ORDERED: IOPAMIDOL-300 100 ML VIAL IVP ONE (05:08)
--- NOTE | 2016-10-30 05:36 | CT Preliminary Report ---
Exam: CT Abdomen/Pelvis W/ IMPRESSION: 1. Crescentic collection in the right paracolic gutter measuring about 2.7 cm in thickness, similar i n size compared with the prior CT. This may be residual hematoma. 2. Relatively decompressed urinary bladder with possible wall thickening. This could be due to nondis tention and hypertrophy. Correlate with urinalysis for the possibility of cystitis. [facility] SITE ID: [id number]
--- NOTE | 2016-10-30 05:39 | CT Report ---
EXAM: CT ABDOMEN AND PELVIS EXAM DATE: 10/30/2016 05:14 AM. CLINICAL HISTORY: Abdominal pain post surgery. COMPARISONS: 10/22/2016. TECHNIQUE: Routine helical CT imaging was performed through the abdomen and pelvis. IV contrast: Darlene onic. Enteric contrast: No. Reconstructions: Coronal and sagittal. In accordance with CT protocol optimization, one or more of the following dose reduction techniques w ere utilized for this exam: automated exposure control, adjustment of mA and/or KV based on patient s ize, or use of iterative reconstructive technique. FINDINGS: Lung Bases: Mild bibasilar atelectasis. Liver: No focal lesion identified. Gallbladder/Bile Ducts: Unremarkable. Spleen: Normal. Pancreas: Normal. Adrenal Glands: Normal. Kidneys: Normal. No masses or hydronephrosis. Peritoneal Cavity/Bowel: There is a persistent crescentic collection in the right paracolic gutter me asuring about 2.7 cm in thickness, similar compared with the prior exam. This may represent residual hematoma. No bowel obstruction is seen. No diverticulitis is noted. No free air is seen. No free flui d is otherwise identified. No lymphadenopathy is seen. Appendix is not seen. Pelvic Organs: Urinary bladder is relatively decompressed. There is possible mild bladder wall thicke lázaro. Vasculature: Mild atherosclerosis. No aortic aneurysm. Bones: No significant abnormality. Other: None. IMPRESSION: 1. Crescentic collection in the right paracolic gutter measuring about 2.7 cm in thickness, similar i n size compared with the prior CT. This may be residual hematoma. 2. Relatively decompressed urinary bladder with possible wall thickening. This could be due to nondis tention and hypertrophy. Correlate with urinalysis for the possibility of cystitis. [facility] Referring Provider Line: [phone] SITE ID: [id number]
--- NOTE | 2016-10-30 06:12 | ED Physician Documentation ---
PD HPI ABD PAIN - Stated complaint Stated Complaint: ABD PAIN POST SURGERY - Chief complaint Chief Complaint: Abd Pain - History obtained from History obtained from: Patient - History of Present Illness Timing - onset: Chronic Timing - details: Gradual onset, Still present Quality: Cramping, Aching Location: Periumbilical, RLQ Worsened by: Moving Associated symptoms: Nausea. No: Vomiting, Hematemesis, Diarrhea, Constipation Similar symptoms before: Work up / diagnostics, Treatment Recently seen: Surgery - Additional information Additional information: Patient is a 51 year old male with a history of recurrent abdominal pain who is presenting to the emergency department for abdominal pain. Patient recently had surgery but he was not sure what for. Patient states that the pain was getting more severe tonight so he came in for evaluation. Review of Systems Constitutional: denies: Fever, Chills Eyes: denies: Loss of vision, Decreased vision Ears: denies: Ear pain, Drainage/discharge Nose: denies: Rhinorrhea / runny nose, Congestion Cardiac: denies: Chest pain / pressure, Palpitations GI: reports: Abdominal Pain, Nausea. denies: Vomiting, Constipation, Diarrhea : denies: Dysuria, Frequency, Hesitancy, Unable to Void Skin: denies: Rash, Lesions Neurologic: denies: Generalized weakness, Focal weakness Immunocompromised: denies: Immunocompromised PD PAST MEDICAL HISTORY - Past Medical History Cardiovascular: High cholesterol Respiratory: None Neuro: Headache/migraine, Peripheral neuropathy, Fainting Endocrine/Autoimmune: Type 2 diabetes GI: None : Kidney stones Psych: Depression, Bipolar disorder Musculoskeletal: Chronic back pain Derm: Other - Past Surgical History Past Surgical History: Yes General: Appendectomy - Present Medications Home Medications: Ambulatory Orders Medication Instructions Recorded Confirmed Atorvastatin [Lipitor] 10 mg PO QPM 08/18/16 10/30/16 Cyclobenzaprine [Flexeril] 10 mg PO TID PRN 08/18/16 10/30/16 Gabapentin 300 mg PO QID 08/18/16 10/30/16 Insulin Aspart [NovoLOG] 10 units SQ TID 08/18/16 10/30/16 Lisinopril 5 mg PO DAILY 08/18/16 10/30/16 Insulin Glargine [Lantus] 25 unit SQ QPM 30 Days 09/18/16 10/30/16 SITagliptin [Januvia] 100 mg PO DAILY 09/22/16 10/30/16 Acetaminophen [Tylenol] 650 mg PO Q4HR PRN #0 tablet 10/22/16 10/30/16 Zolpidem [Ambien] 5 mg PO QPM PRN #10 tablet 10/22/16 10/30/16 oxyCODONE [Roxicodone] 5 mg PO Q4HR PRN #30 tablet 10/22/16 10/30/16 - Allergies Allergies/Adverse Reactions: Allergies Allergy/AdvReac Type Severity Reaction Status Date / Time cinnamon Allergy Unknown Verified 10/30/16 02:05 pregabalin [From Lyrica] Allergy Unknown Verified 10/30/16 02:05 - Social History Does the pt smoke?: No Smoking Status: Never smoker Does the pt drink ETOH?: No Does the pt have substance abuse?: Yes - Immunizations Immunizations are current?: Yes PD ED PE NORMAL - Vitals Vital signs reviewed: Yes - General General: Well developed/nourished - HEENT HEENT: Atraumatic - Neck Neck: Supple, no meningeal sign - Cardiac Cardiac: RRR, No murmur - Respiratory Respiratory: No respiratory distress - Derm Derm: Normal color, Warm and dry, No rash - Extremities Extremities: No deformity, No edema - Neuro Neuro: Alert and oriented X 3, No motor deficit, No sensory deficit, Normal speech PD ED PE EXPANDED - HEENT HEENT: Dry mucous membranes - Abdomen Abdomen: Tender to palpation, Generalized/diffuse. No: Rebound, Guarding - Male Male : Normal Exam, Normal lie/cremastaric. No: Discharge, Testicular Mass, Tenderness Results - Vitals Vitals: Vital Signs - 24 hr 10/30/16 10/30/16 10/30/16 02:03 03:30 03:47 Temperature 37 C 36.7 C Heart Rate 113 H 93 96 Respiratory 20 16 20 Rate Blood Pressure 132/100 H 123/73 123/83 H O2 Saturation 97 97 97 10/30/16 05:29 Temperature 37.0 C Heart Rate 100 Respiratory 18 Rate Blood Pressure 121/76 O2 Saturation 98 Oxygen O2 Source Room air - Labs Labs: Laboratory Tests 10/30/16 10/30/16 10/30/16 02:54 02:54 02:54 WBC 8.0 RBC 3.48 L Hgb 10.7 L Hct 31.4 L MCV 90.1 MCH 30.7 MCHC 34.0 RDW 13.5 Plt Count 299 MPV 9.1 Neut # 5.0 Lymph # 1.8 Antelope # 1.0 Eos # 0.2 Baso # 0.0 Absolute Nucleated RBC 0.00 Nucleated RBCs 0.0 Sodium 135 Potassium 3.5 Chloride 105 Carbon Dioxide 25 Anion Gap 5.0 L BUN 12 Creatinine 0.6 Estimated GFR (MDRD) 141 Glucose 213 H Lactic Acid 1.2 Calcium 8.1 L Total Bilirubin 0.4 AST 17 ALT 18 Alkaline Phosphatase 68 Total Protein 6.5 L Albumin 3.5 Globulin 3.0 Albumin/Globulin Ratio 1.2 Lipase 23 Urine Color Urine Clarity Urine pH Ur Specific Conrath Urine Protein Urine Glucose (UA) Urine Ketones Urine Occult Blood Urine Nitrite Urine Bilirubin Urine Urobilinogen Ur Leukocyte Esterase Ur Microscopic Review Urine Culture Comments Urine Opiates Screen Ur Oxycodone Screen Urine Methadone Screen Ur Propoxyphene Screen Ur Barbiturates Screen Ur Tricyclics Screen Ur Phencyclidine Scrn Ur Amphetamine Screen U Methamphetamines Scrn U Benzodiazepines Scrn Urine Cocaine Screen U Cannabinoids Screen 10/30/16 03:15 WBC RBC Hgb Hct MCV MCH MCHC RDW Plt Count MPV Neut # Lymph # Antelope # Eos # Baso # Absolute Nucleated RBC Nucleated RBCs Sodium Potassium Chloride Carbon Dioxide Anion Gap BUN Creatinine Estimated GFR (MDRD) Glucose Lactic Acid Calcium Total Bilirubin AST ALT Alkaline Phosphatase Total Protein Albumin Globulin Albumin/Globulin Ratio Lipase Urine Color YELLOW Urine Clarity CLEAR Urine pH 5.5 Ur Specific Conrath 1.020 Urine Protein NEGATIVE Urine Glucose (UA) 500 H Urine Ketones NEGATIVE Urine Occult Blood NEGATIVE Urine Nitrite NEGATIVE Urine Bilirubin NEGATIVE Urine Urobilinogen 0.2 (NORMAL) Ur Leukocyte Esterase NEGATIVE Ur Microscopic Review NOT INDICATED Urine Culture Comments NOT INDICATED Urine Opiates Screen POSITIVE H Ur Oxycodone Screen POSITIVE H Urine Methadone Screen NEGATIVE Ur Propoxyphene Screen NEGATIVE Ur Barbiturates Screen NEGATIVE Ur Tricyclics Screen NEGATIVE Ur Phencyclidine Scrn NEGATIVE Ur Amphetamine Screen NEGATIVE U Methamphetamines Scrn NEGATIVE U Benzodiazepines Scrn NEGATIVE Urine Cocaine Screen NEGATIVE U Cannabinoids Screen POSITIVE H - Rads (name of study) ct abd pelvis Radiology: Final report received (no acute change in hematoma) PD MEDICAL DECISION MAKING - ED course Complexity details: reviewed old records, reviewed results, re-evaluated patient , considered differential, d/w patient ED course: Patient was seen and examined at bedside. IV access was gained and labs were drawn. when patient's labs came back he was sent for imaging. patient was treated with toradol for pain. When patient returned his diagnostics were within normal limits. Patient required no further work up and was stable for discharge with outpatient follow up. Departure - Departure Disposition: Home, Self Care Clinical Impression: Abdominal pain Condition: Good Instructions: ED Abdominal Pain Unkn Cause Male Follow-Up: primary,care provider [Other] - As Needed Comments: your diagnostics were all within normal limits. It is important that you follow up with your pmd and surgeon for your chronic pain. You may return to the emergency department at any time for new, worsening or uncontrollable symptoms.
[2016-10-30 06:31] VITALS: BP 126/79
== END 2016-10-30 06:30 | disposition home or self-care (01) ==
LOC: EDUNIT# → ED 02:01
DX: R10.33 Periumbilical pain (principal); R10.31 Right lower quadrant pain; R11.0 Nausea; E11.42 Type 2 diabetes mellitus with diabetic polyneuropathy; Z79.4 Long term (current) use of insulin; Z87.442 Personal history of urinary calculi
CPT/HCPCS: 36415; 74177; 80053; 80306; 81003; 83605; 83690; 85025; 96374; 99283; 99284; Q9967; 81001; 87086

== ENCOUNTER 2016-11-09 20:09 | Outpatient (CLI) | payer MEDICAID | END 2016-11-09 20:10 | disposition short-term general hospital (02) | LOC: EMS 20:09 | PROVIDERS: ATTEND Surgery | DX: M54.89 Other dorsalgia (principal); R10.9 Unspecified abdominal pain; R51 Headache | CPT/HCPCS: A0425; A0429 ==

== ENCOUNTER 2016-11-29 08:00 | Outpatient (CLI) | payer MEDICAID ==
[2016-11-29 19:34] LABS: BASOPHILS % (AUTO) 0.5 %; EOSINOPHILS # (AUTO) 0.1 10^3/uL (0.0-0.7); EOSINOPHILS % (AUTO) 1.8 %; HCT - HEMATOCRIT 41.1 % (42.0-52.0); HGB - HEMOGLOBIN 13.5 g/dL (14.0-18.0); LYMPHOCYTES # (AUTO) 1.3 10^3/uL (1.5-3.5); LYMPHOCYTES % (AUTO) 24.2 %; MEAN CORPUSCULAR HEMOGLOBIN 29.7 pg (27.0-31.0); MEAN CORPUSCULAR HGB CONC 32.8 g/dL (32.0-36.0); MEAN CORPUSCULAR VOLUME 90.6 fL (80.0-94.0); MEAN PLATELET VOLUME 9.8 fL (7.4-11.4); MONOCYTES # (AUTO) 0.8 10^3/uL (0.0-1.0); MONOCYTES % (AUTO) 14.3 %; NEUTROPHILS # (AUTO) 3.2 10^3/uL (1.5-6.6); NEUTROPHILS % (AUTO) 59.2 %; RED BLOOD COUNT 4.54 10^6/uL (4.70-6.10); RED CELL DISTRIBUTION WIDTH 13.5 % (12.0-15.0); UNCORRECTED WHITE BLOOD COUNT 5.4 x10^3/uL; WHITE BLOOD COUNT 5.4 x10^3/uL (4.8-10.8)
== END 2016-11-29 08:01 | disposition home or self-care (01) ==
LOC: LAB.N 08:00
PROVIDERS: ATTEND Surgery
DX: R19.5 Other fecal abnormalities (principal)
CPT/HCPCS: 36415; 85025

== ENCOUNTER 2016-11-30 20:13 | Outpatient (CLI) | payer MEDICAID | END 2016-11-30 20:14 | disposition home or self-care (01) | LOC: LAB.R 20:13 | PROVIDERS: ATTEND Surgery | DX: R19.5 Other fecal abnormalities (principal) | CPT/HCPCS: 82270; 83630; 87045; 87046; 87493 ==

== ENCOUNTER 2016-12-16 10:12 | Outpatient (CLI) | payer MEDICAID ==
[2016-12-16 12:59] LABS: CREATININE 0.7 mg/dL (0.6-1.2)
== END 2016-12-16 10:13 | disposition home or self-care (01) ==
LOC: LAB 10:12
PROVIDERS: ATTEND Orthopaedic Surgery
DX: E11.65 Type 2 diabetes mellitus with hyperglycemia (principal); R10.9 Unspecified abdominal pain
CPT/HCPCS: 36415; 82565; 83036

== ENCOUNTER 2016-12-17 09:54 | Outpatient (CLI) | payer MEDICAID ==
[2016-12-17] MEDS ORDERED: IOPAMIDOL-300 50 ML VIAL ONE (10:08)
[2016-12-17] MEDS ORDERED: IOPAMIDOL-300 100 ML VIAL ONE (10:08)
[2016-12-17] MEDS ORDERED: IOPAMIDOL-300 100 ML VIAL IVP ONE (11:14)
[2016-12-17] MEDS ORDERED: IOPAMIDOL-300 50 ML VIAL PO ONE (11:14)
--- NOTE | 2016-12-17 13:09 | CT Report ---
CT ABDOMEN AND PELVIS WITH CONTRAST: 12/17/2016 CLINICAL INDICATION: Abdominal pain, history of laparoscopic surgery and postoperative hematoma. COMPARISON: 10/30/2016 TECHNIQUE: Axial CT images of the abdomen and pelvis were obtained with 100 mL Isovue-300 intravenou sly as well as oral contrast. In accordance with CT protocol optimization, one or more of the following dose reduction techniques w ere utilized for this exam: automated exposure control, adjustment of mA and/or KV based on patient size, or use of iterative reconstructive technique. FINDINGS: Limited evaluation of the lung bases is unremarkable. Abdomen: The previously seen hematoma in the right pericolic gutter has resolved. The liver, spleen , pancreas, kidneys, and adrenal glands are unremarkable. The gallbladder is not dilated. No bowel dilatation, free gas, or free fluid is present. No abdominal adenopathy is seen. Postoperative vargas ges of appendectomy are noted. Pelvis: The pelvic organs appear unremarkable. No pelvic adenopathy or free fluid is present. Osseous structures demonstrate degenerative changes. IMPRESSION: RESOLUTION OF HEMATOMA IN THE RIGHT PERICOLIC GUTTER. NORMAL CT OF THE ABDOMEN AND PELV IS WITH CONTRAST. JOB #: [id number] EXT JOB #:[id number]
== END 2016-12-17 09:55 | disposition home or self-care (01) ==
LOC: DI 09:54
PROVIDERS: ATTEND Surgery
DX: R10.9 Unspecified abdominal pain (principal); Z98.890 Other specified postprocedural states
CPT/HCPCS: 74177; Q9967

== ENCOUNTER 2016-12-27 11:33 | Outpatient (CLI) | payer MEDICAID | END 2016-12-27 11:34 | disposition home or self-care (01) | LOC: LAB 11:33 | PROVIDERS: ATTEND Orthopaedic Surgery | DX: G56.01 Carpal tunnel syndrome, right upper limb (principal) | CPT/HCPCS: 87640 ==

== ENCOUNTER 2016-12-30 05:50 | Day surgery (SDC) | payer MEDICAID ==
[2016-12-30] MEDS ORDERED: ceFAZolin 2 GM/50 ML 2 GM/50 ML BAG IV ONE (06:29)
[2016-12-30] MEDS ORDERED: LACTATED RINGERS 1,000 ML IV ONE ×4 (06:29→09:35)
[2016-12-30] MEDS ORDERED: MIDAZOLAM 2 MG/2 ML VIAL IVP ONE (07:30)
[2016-12-30] MEDS ORDERED: PROPOFOL 200 MG/20 ML VIAL IVP ONE (07:30)
[2016-12-30] MEDS ORDERED: LIDOCAINE-MPF 2% 5 ML VIAL IM ONE (07:30)
[2016-12-30] MEDS ORDERED: KETOROLAC 30 MG/ML VIAL IVP ONE (07:30)
[2016-12-30] MEDS ORDERED: fentaNYL 100 MCG/2 ML VIAL IVP ONE (07:30)
[2016-12-30] MEDS ORDERED: ONDANSETRON 4 MG/2 ML VIAL IVP ONE (07:30)
[2016-12-30] MEDS ORDERED: BUPIVACAINE 0.5% PF 10 ML VIAL IM ONE ×2 (08:35)
[2016-12-30] MEDS ORDERED: ONDANSETRON 4 MG/2 ML VIAL ONE (09:30)
--- NOTE | 2016-12-30 09:37 | OPERATIVE REPORT ---
DATE OF SURGERY: 12/30/2016 00:00:00 PREOPERATIVE DIAGNOSIS: Right carpal tunnel syndrome. POSTOPERATIVE DIAGNOSIS: Right carpal tunnel syndrome. NAME OF PROCEDURE: Right carpal tunnel release. SURGEON: Gustavo Yuan MD. ASSISTANTS: None. ANESTHESIA: General endotracheal. FINDINGS: Same. COMPLICATIONS: None. BLOOD LOSS: None. TOURNIQUET: Esmarch to right forearm x12 minutes. SPECIMEN REMOVED AND CULTURES: None. DISPOSITION: PACU, then home. CONDITION AT END OF PROCEDURE: Stable. INDICATIONS: This is a 51-year-old male with poorly controlled type 2 diabetes mellitus and a longsta nding history of numbness and tingling in right median nerve distribution with carpal tunnel syndrome documented by EMG and nerve conduction studies. 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 Because of his poorly controlled diabetes, we have been waiting for his blood sugars to come down to a manageable level. His hemoglobin A1c is decreased from 11.1 to 8.4, but is still considered fairly high. We have decided to proceed with a carpal tunnel release as a less interventional procedure to relieve his numbness, tingling and pain in the median nerve distribution and will defer consideration of wri st fusion to a later date. PROCEDURE IN DETAIL: After consent and identification, the patient was brought to the operating room and placed in a supine position on the operating table. After induction of a general endotracheal ane sthesia and appropriate monitoring, the patient was positioned in the supine position with a Ramirez sta nd underneath the right outstretched arm. The right arm was then prepped and draped free in the usual sterile fashion for upper extremity surgery. After an appropriate timeout was conducted, we used an Esmarch bandage to exsanguinate the extremity. We then wrapped with the Esmarch from the wrist to the mid forearm and tucked it in to use the Esmar ch as a tourniquet for the procedure. With the hand in a supinated extended position, we mapped out an incision just ulnar to the mid manzano r crease. The incision extended from the wrist flexor crease distally approximately 3 cm. A 15-blade scalpel was used to incise the skin, subcutaneous tissue and fat, the palmar fascia down to the level of the transverse retinaculum. A Heiss retractor was positioned along with a Ragnell. Sweeping motio ns were used a #15 blade scalpel across the transverse retinaculum until we just penetrated the retin aculum in the mid portion. We inserted the blunt end of a [place] elevator deep to the retinaculum to p rotect the nerve and then completed our dissection both proximally and distally. We probed the proxim al end and completed the very last few fibers released with tenotomy scissors. Usual exploration reve aled good release of the transverse retinaculum and no further entrapment of the median nerve. The wound was then irrigated and closed with a running 4-0 nylon interlocked suture. The incision was injected with 4 mL of 0.5% Marcaine without epinephrine. Xeroform gauze was then placed, followed by folded 4 x 4s, Wild wrap and a 3-inch Adeel bandage. On completion of the procedure, the Esmarch band age was removed. The patient was extubated and transferred to the recovery room in good condition hav ing tolerated the procedure well. JOB #: [id number] EXT JOB #:[id number]
[2016-12-30 10:19] VITALS: BP 124/90
[2016-12-30] MEDS ORDERED: ACETAMINOPHEN 325 MG TABLET PO ONE (10:23)
== END 2016-12-30 05:51 | disposition home or self-care (01) ==
LOC: SDS 05:50
PROVIDERS: ATTEND Orthopaedic Surgery
PROC: 01N50ZZ Release Median Nerve, Open Approach (ICD-10-PCS; principal; 2016-12-30 07:30)
DX: G56.01 Carpal tunnel syndrome, right upper limb (principal); E11.9 Type 2 diabetes mellitus without complications; Z87.891 Personal history of nicotine dependence; Z79.82 Long term (current) use of aspirin; Z79.4 Long term (current) use of insulin
CPT/HCPCS: 64721; A9270; J0690; J7120

== ENCOUNTER 2017-03-11 04:40 | Outpatient (CLI) | payer MEDICAID | END 2017-03-11 04:41 | disposition short-term general hospital (02) | LOC: EMS 04:40 | PROVIDERS: ATTEND Surgery | DX: R56.9 Unspecified convulsions (principal) | CPT/HCPCS: A0425; A0427 ==

== ENCOUNTER 2017-03-14 18:58 | Outpatient (CLI) | payer MEDICAID | END 2017-03-14 18:59 | disposition short-term general hospital (02) | LOC: EMS 18:58 | PROVIDERS: ATTEND Surgery | DX: R10.9 Unspecified abdominal pain (principal) | CPT/HCPCS: A0425; A0427 ==

== ENCOUNTER 2017-03-19 19:59 | Outpatient (CLI) | payer MEDICAID | END 2017-03-19 20:00 | disposition critical access hospital (66) | LOC: EMS 19:59 | PROVIDERS: ATTEND Surgery | DX: R20.2 Paresthesia of skin (principal); R10.12 Left upper quadrant pain; R10.11 Right upper quadrant pain; M79.622 Pain in left upper arm; M79.632 Pain in left forearm; R53.81 Other malaise; R11.0 Nausea | CPT/HCPCS: A0425; A0427 ==

== ENCOUNTER 2017-03-19 20:27 | Emergency (ER) | payer MEDICAID ==
[2017-03-19 20:53] LABS: BILIRUBIN,URINE NEGATIVE (NEGATIVE); PH,URINE 6.5 PH (5.0-7.5)
[2017-03-19 20:54] LABS: BASOPHILS % (AUTO) 0.5 %; EOSINOPHILS # (AUTO) 0.1 10^3/uL (0.0-0.7); EOSINOPHILS % (AUTO) 1.9 %; HCT - HEMATOCRIT 41.5 % (42.0-52.0); LYMPHOCYTES # (AUTO) 1.3 10^3/uL (1.5-3.5); LYMPHOCYTES % (AUTO) 24.6 %; MEAN CORPUSCULAR HEMOGLOBIN 30.1 pg (27.0-31.0); MEAN CORPUSCULAR HGB CONC 33.8 g/dL (32.0-36.0); MEAN CORPUSCULAR VOLUME 89.1 fL (80.0-94.0); MEAN PLATELET VOLUME 8.9 fL (7.4-11.4); MONOCYTES # (AUTO) 0.6 10^3/uL (0.0-1.0); MONOCYTES % (AUTO) 11.8 %; NEUTROPHILS # (AUTO) 3.2 10^3/uL (1.5-6.6); NEUTROPHILS % (AUTO) 61.2 %; RED BLOOD COUNT 4.65 10^6/uL (4.70-6.10); RED CELL DISTRIBUTION WIDTH 14.5 % (12.0-15.0); UNCORRECTED WHITE BLOOD COUNT 5.2 x10^3/uL; WHITE BLOOD COUNT 5.2 x10^3/uL (4.8-10.8)
[2017-03-19 21:01] LABS: UA CHARGE (STRIP ONLY) YES; UR CULTURE IF IND NOT INDICATED
[2017-03-19 21:08] LABS: ALBUMIN/GLOBULIN RATIO 1.4 (1.0-2.2); BILIRUBIN,TOTAL 0.6 mg/dL (0.2-1.0); CALCIUM 8.5 mg/dL (8.5-10.3); CREATININE 0.7 mg/dL (0.6-1.2); POTASSIUM 3.7 mmol/L (3.5-5.0)
--- NOTE | 2017-03-19 21:09 | ED Physician Documentation ---
History of Present Illness - Stated complaint Stated Complaint: PALPITATIONS, BODY ACHES, LEFT ARM NUMBNESS - Chief complaint Chief Complaint: Abd Pain - History obtained from History obtained from: Patient - History of Present Illness Timing: Prior to arrival (18:00), Today Pain level now: 7 Improved by: no ameliorating factors Worsened by: no exacerbating factors - Additonal information Additional information: while at friend's house watching a movie, had sudden onset pain across upper abdomen, urinary frequency, LUE "tingling" (per patient), dyspnea. He was admitted to 03/11 for seizures, testing included CT neck (angio) and MR brain (w/wo); tests yielded unremarkable results and patient was discharged the following day. He returned to ED 03/14 for abdominal pain, testing at that time included CT A/P which revealed mild inflammatory changes adjacent to terminal ileum, discharged with suspected terminal ileitis, rx for cipro and flagyl. Review of Systems Constitutional: denies: Fever, Chills, Sweats PD PAST MEDICAL HISTORY - Past Medical History Cardiovascular: High cholesterol Respiratory: None Neuro: Headache/migraine, Peripheral neuropathy, Fainting Endocrine/Autoimmune: Type 2 diabetes GI: None : Kidney stones Psych: Depression, Bipolar disorder Musculoskeletal: Chronic back pain Derm: Other - Past Surgical History Past Surgical History: Yes General: Appendectomy - Present Medications Home Medications: Ambulatory Orders Medication Instructions Recorded Confirmed Atorvastatin [Lipitor] 10 mg PO QPM 08/18/16 03/19/17 Cyclobenzaprine [Flexeril] 10 mg PO TID PRN 08/18/16 03/19/17 Gabapentin 300 mg PO QID 08/18/16 03/19/17 Insulin Aspart [NovoLOG] 10 units SQ TID 08/18/16 03/19/17 Lisinopril 5 mg PO DAILY 08/18/16 03/19/17 Insulin Glargine [Lantus] 25 unit SQ QPM 30 Days ml 09/18/16 03/19/17 SITagliptin [Januvia] 100 mg PO DAILY 09/22/16 03/19/17 Aspirin [Aspirin EC] 81 mg PO DAILY 12/30/16 03/19/17 Ciprofloxacin HCl [Cipro] 500 mg pe PO BID 03/19/17 03/19/17 metroNIDAZOLE [Flagyl] 250 mg PO BID 03/19/17 03/19/17 Ondansetron Odt [Zofran] 4 mg TL Q6H PRN #10 tablet 03/20/17 - Allergies Allergies/Adverse Reactions: Allergies Allergy/AdvReac Type Severity Reaction Status Date / Time cinnamon Allergy Unknown Verified 03/19/17 20:34 pregabalin [From Lyrica] Allergy Unknown Verified 10/30/16 02:05 - Social History Does the pt smoke?: No Smoking Status: Never smoker Does the pt drink ETOH?: No Does the pt have substance abuse?: Yes - Immunizations Immunizations are current?: Yes PD ED PE NORMAL - Vitals Vital signs reviewed: Yes - General General: Alert and oriented X 3, No acute distress, Well developed/nourished - HEENT HEENT: Moist mucous membranes - Neck Neck: Supple, no meningeal sign - Cardiac Cardiac: RRR, No murmur - Respiratory Respiratory: No respiratory distress, Clear bilaterally - Abdomen Abdomen: Normal bowel sounds, Soft, Non tender, Non distended - Back Back: No CVA TTP - Derm Derm: Normal color, Warm and dry - Extremities Extremities: No tenderness to palpate, Normal ROM s pain, No edema - Neuro Neuro: Alert and oriented X 3, No motor deficit (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 LTS intact all aspects (anterior, posterior, medial, lateral). normal color, not cool nor hot to touch), No sensory deficit Eye Opening: Spontaneous Motor: Obeys Commands Verbal: Oriented GCS Score: 15 Results - Vitals Vitals: Vital Signs - 24 hr 03/19/17 03/19/17 03/19/17 20:29 22:02 22:22 Temperature 37 C 36.7 C 36.5 C Heart Rate 119 H 111 H 109 H Respiratory 20 23 17 Rate Blood Pressure 159/136 H 140/93 H 140/93 H O2 Saturation 100 100 96 03/20/17 03/20/17 03/20/17 00:07 01:13 01:56 Temperature 36.5 C Heart Rate 100 83 100 Respiratory 18 13 16 Rate Blood Pressure 110/81 H 118/88 H 120/96 H O2 Saturation 100 99 99 Oxygen O2 Source Room air - EKG (time done) No standard instances Rate: Tachy (108) Rhythm: Sinus tachycardia [place]: LAD Intervals: Normal [place] QRS: Normal Ischemia: Normal ST segments - Labs Labs: Laboratory Tests 03/19/17 03/19/17 03/19/17 20:45 20:45 20:45 WBC 5.2 RBC 4.65 L Hgb 14.0 Hct 41.5 L MCV 89.1 MCH 30.1 MCHC 33.8 RDW 14.5 Plt Count 187 MPV 8.9 Neut # 3.2 Lymph # 1.3 L [place] # 0.6 Eos # 0.1 Baso # 0.0 Absolute Nucleated RBC 0.00 Nucleated RBC % 0.0 Sodium 137 Potassium 3.7 Chloride 102 Carbon Dioxide 26 Anion Gap 9.0 BUN 11 Creatinine 0.7 Estimated GFR (MDRD) 118 Glucose 215 H Calcium 8.5 Total Bilirubin 0.6 AST 29 ALT 29 Alkaline Phosphatase 75 Total Protein 7.0 Albumin 4.1 Globulin 2.9 Albumin/Globulin Ratio 1.4 Lipase 19 L Urine Color YELLOW Urine Clarity CLEAR Urine pH 6.5 Ur Specific [place] <=1.005 Urine Protein NEGATIVE Urine Glucose (UA) 500 H Urine Ketones NEGATIVE Urine Occult Blood NEGATIVE Urine Nitrite NEGATIVE Urine Bilirubin NEGATIVE Urine Urobilinogen 0.2 (NORMAL) Ur Leukocyte Esterase NEGATIVE Ur Microscopic Review NOT INDICATED Urine Culture Comments NOT INDICATED PD MEDICAL DECISION MAKING - ED course Complexity details: reviewed results, re-evaluated patient, considered differential, d/w patient ED course: Patient has had significant recent testing at including blood works, CT A/P, CT neck (angio), MR brain w/wo. Based on these results, as well as tonight's blood test results (unremarkable), and unremarkable exam (including neuro and abd. exam), no further imaging performed at this time. Given the mild inflammatory changes on recent A/P CT (and possible infectious etiology for this finding), I ordered a dose of IV rocephin in ED. He responded well to IV ativan and PO percocet. I instructed him to f/u with PMD (has appointment Tuesday , but he will call office Tuesday to pursue earlier appointment if available), but to return to the ED if worse in any way. Departure - Departure Disposition: Home, Self Care Clinical Impression: Abdominal pain Qualifiers: Abdominal location: generalized Qualified Code(s): R10.84 - Generalized abdominal pain Condition: Good Instructions: Abdominal Pain Follow-Up: Bhanu Lopez PA-C [Primary Care Provider] - Prescriptions: Ondansetron Odt [Zofran] 4 mg TL Q6H PRN #10 tablet PRN Reason: Nausea / Vomiting Comments: Continue the antibiotics that were prescribed by the emergency department. The CT scan performed at showed mild inflammation of the small intestine, and this might require further testing by your doctor. Based on your exam and blood tests in the emergency department tonight, further testing is not indicated at this time. Discharge Date/Time: 03/20/17 02:23
[2017-03-19] MEDS ORDERED: LORazepam 2 MG/ML VIAL IVP STA (21:55)
[2017-03-19] MEDS ORDERED: ONDANSETRON 4 MG/2 ML VIAL IVP STA (21:55)
[2017-03-19] MEDS ORDERED: cefTRIAXone 1 GM in SODIUM CHLORIDE 0.9% MINIBAG 100 ML IV STA (23:03)
[2017-03-19] MEDS ORDERED: oxyCOD/ACETAMIN 5 MG/325 MG TABLET PO STA (23:03)
[2017-03-20 01:58] VITALS: BP 120/96
[2017-03-20] MEDS ORDERED: oxyCOD/ACETAMIN 5 MG/325 MG TABLET PO STA (02:12)
== END 2017-03-20 02:23 | disposition home or self-care (01) ==
LOC: EDUNIT# → ED 20:27
DX: R10.84 Generalized abdominal pain (principal); E11.42 Type 2 diabetes mellitus with diabetic polyneuropathy; Z79.4 Long term (current) use of insulin; Z79.82 Long term (current) use of aspirin
CPT/HCPCS: 36415; 80053; 81003; 83690; 85025; 93005; 96365; 96375; 99283; 99284; A9270; J2060; 81001; 87086

== ENCOUNTER 2017-03-24 19:16 | Outpatient (CLI) | payer MEDICAID | END 2017-03-24 19:17 | disposition short-term general hospital (02) | LOC: EMS 19:16 | PROVIDERS: ATTEND Surgery | DX: R07.9 Chest pain, unspecified (principal) | CPT/HCPCS: A0425; A0427 ==

== ENCOUNTER 2017-04-24 05:51 | Outpatient (CLI) | payer MEDICAID | END 2017-04-24 05:52 | disposition short-term general hospital (02) | LOC: EMS 05:51 | PROVIDERS: ATTEND Surgery | DX: R07.9 Chest pain, unspecified (principal); R06.00 Dyspnea, unspecified | CPT/HCPCS: A0425; A0427 ==

== ENCOUNTER 2017-05-01 03:38 | Outpatient (CLI) | payer MEDICAID | END 2017-05-01 03:39 | disposition short-term general hospital (02) | LOC: EMS 03:38 | PROVIDERS: ATTEND Surgery | DX: R10.9 Unspecified abdominal pain (principal); R05 Cough | CPT/HCPCS: A0425; A0429 ==

== ENCOUNTER 2017-06-10 16:01 | Outpatient (CLI) | payer MEDICAID ==
--- NOTE | 2017-06-10 17:14 | XRAY Report ---
EXAM: RIGHT WRIST RADIOGRAPHY EXAM DATE: 06/10/2017 04:17 PM. CLINICAL HISTORY: R wrist pain. COMPARISON: 08/18/2016. TECHNIQUE: 3 views. FINDINGS: Bones: Proximal carpal row has been surgically removed. Well-corticated ossicle adjacent to the trape zium is likely degenerative or postsurgical. Probable old fracture of the fifth metacarpal base. Smal l cyst in the capitate. Joints: No dislocation. Soft Tissues: Dorsal soft tissue swelling. IMPRESSION: No acute osseous abnormality. Proximal carpal row has been removed. [facility] Referring Provider Line: [phone] SITE ID: [id number]
== END 2017-06-10 16:02 | disposition home or self-care (01) ==
LOC: DI.N 16:01
PROVIDERS: ATTEND Nurse Practitioner Gerontology
DX: M25.531 Pain in right wrist (principal)

== ENCOUNTER 2017-07-12 18:54 | Outpatient (CLI) | payer MEDICAID | END 2017-07-12 18:55 | disposition short-term general hospital (02) | LOC: EMS 18:54 | PROVIDERS: ATTEND Surgery | DX: R07.9 Chest pain, unspecified (principal); R11.0 Nausea | CPT/HCPCS: A0425; A0427 ==

== ENCOUNTER 2017-08-08 08:00 | Outpatient (CLI) | payer MEDICAID ==
[2017-08-08 19:15] LABS: HB2 TOTAL 16.3 g/dL; HEMOGLOBIN A1C 1.32 g/dL; HEMOGLOBIN A1C % 9.6 % (4.6-6.2)
[2017-08-08 19:25] LABS: THYROID STIMULATING HORMONE 0.1 uIU/mL (0.34-5.60)
[2017-08-08 20:02] LABS: FREE T4 (FREE THYROXINE) 0.92 ng/dL (0.58-1.64)
== END 2017-08-08 08:01 | disposition home or self-care (01) ==
LOC: LAB.N 08:00
PROVIDERS: ATTEND Nurse Practitioner Gerontology
DX: E11.65 Type 2 diabetes mellitus with hyperglycemia (principal); Z13.9 Encounter for screening, unspecified
CPT/HCPCS: 36415; 83036; 84439; 84443

== ENCOUNTER 2017-08-25 06:06 | Outpatient (CLI) | payer MEDICAID | END 2017-08-25 06:07 | disposition critical access hospital (66) | LOC: EMS 06:06 | PROVIDERS: ATTEND Surgery | DX: R07.9 Chest pain, unspecified (principal); R61 Generalized hyperhidrosis | CPT/HCPCS: A0425; A0427 ==

== ENCOUNTER 2017-08-25 06:24 | Emergency (ER) | payer MEDICAID ==
[2017-08-25 06:53] LABS: BASOPHILS % (AUTO) 0.7 %; EOSINOPHILS # (AUTO) 0.1 10^3/uL (0.0-0.7); EOSINOPHILS % (AUTO) 1.9 %; HGB - HEMOGLOBIN 14.4 g/dL (14.0-18.0); LYMPHOCYTES # (AUTO) 2.1 10^3/uL (1.5-3.5); LYMPHOCYTES % (AUTO) 30.1 %; MEAN CORPUSCULAR HEMOGLOBIN 30.6 pg (27.0-31.0); MEAN CORPUSCULAR VOLUME 92.6 fL (80.0-94.0); MEAN PLATELET VOLUME 9.5 fL (7.4-11.4); MONOCYTES # (AUTO) 0.9 10^3/uL (0.0-1.0); MONOCYTES % (AUTO) 13.8 %; NEUTROPHILS # (AUTO) 3.7 10^3/uL (1.5-6.6); NEUTROPHILS % (AUTO) 53.5 %; PLT - PLATELET COUNT 180 10^3/uL (130-450); RED BLOOD COUNT 4.72 10^6/uL (4.70-6.10); RED CELL DISTRIBUTION WIDTH 13.2 % (12.0-15.0); WHITE BLOOD COUNT 6.9 x10^3/uL (4.8-10.8)
[2017-08-25 07:02] LABS: ALBUMIN 4.1 g/dL (3.2-5.5); ALBUMIN/GLOBULIN RATIO 1.3 (1.0-2.2); BILIRUBIN,TOTAL 0.6 mg/dL (0.2-1.0); CALCIUM 8.3 mg/dL (8.5-10.3); CREATININE 0.9 mg/dL (0.6-1.2); TOTAL PROTEIN 7.2 g/dL (6.7-8.2)
[2017-08-25 07:06] LABS: BILIRUBIN,URINE NEGATIVE (NEGATIVE); GLUCOSE, URINE (UA) 500 mg/dL (NEGATIVE); KETONES,URINE (UA) NEGATIVE (NEGATIVE); LEUKOCYTE ESTERASE, URINE NEGATIVE (NEGATIVE); NITRITE,URINE NEGATIVE (NEGATIVE); OCCULT BLOOD,URINE SMALL (NEGATIVE); PROTEIN,URINE TRACE mg/dL (NEGATIVE); UROBILINOGEN,URINE 0.2 (NORMAL) E.U./dL (NORMAL)
[2017-08-25 07:08] LABS: CLARITY,URINE CLOUDY (CLEAR)
[2017-08-25 07:35] LABS: BACTERIA,URINE Moderate /HPF (None Seen); MUCUS,URINE Moderate Strands; RBC,URINE 0-5 /HPF (0-5); SQUAMOUS EPITHELIAL CELL,UR FEW Squamous (<= Few)
[2017-08-25] MEDS ORDERED: SODIUM CHLORIDE 0.9% 1,000 ML IV ONE (08:17)
[2017-08-25] MEDS ORDERED: KETOROLAC 60 MG/2 ML VIAL IVP STA (08:17)
[2017-08-25] MEDS ORDERED: DEXAMETHASONE 10 MG/ML VIAL IVP STA (08:17)
--- NOTE | 2017-08-25 08:20 | ED Physician Documentation ---
History of Present Illness - Stated complaint Stated Complaint: R RIB PX/ SHOULDER PX - Chief complaint Chief Complaint: General - History obtained from History obtained from: Patient - History of Present Illness Timing: Today - Additonal information Additional information: 51-year-old male with a complicated past medical history including some fictitious presentations has developed some diarrhea last night and abdominal pain followed by whole body pain this morning. He is complaining of some numbness and tingling to his hands and feet as well as his lips and he is not able to move. He complains mostly of the pain in his back on the right side of his chest. Review of Systems Constitutional: reports: Fatigue, Sweats. denies: Fever Eyes: denies: Decreased vision Ears: denies: Ear pain Nose: denies: Rhinorrhea / runny nose, Congestion Throat: denies: Sore throat Cardiac: reports: Chest pain / pressure. denies: Palpitations, Pedal edema, Calf pain Respiratory: denies: Dyspnea, Cough GI: reports: Abdominal Pain, Diarrhea. denies: Nausea, Vomiting : reports: Incontinent. denies: Dysuria, Frequency Skin: denies: Rash Musculoskeletal: reports: Neck pain, Back pain, Extremity pain. denies: Extremity swelling, Joint swelling Neurologic: reports: Generalized weakness, Numbness. denies: Focal weakness PD PAST MEDICAL HISTORY - Past Medical History Cardiovascular: High cholesterol Respiratory: None Endocrine/Autoimmune: Type 2 diabetes GI: None : Kidney stones Psych: Depression, Bipolar disorder Musculoskeletal: Chronic back pain Derm: Other - Past Surgical History Past Surgical History: Yes General: Appendectomy - Present Medications Home Medications: Ambulatory Orders Medication Instructions Recorded Confirmed Atorvastatin [Lipitor] 10 mg PO QPM 08/18/16 03/19/17 Cyclobenzaprine [Flexeril] 10 mg PO TID PRN 08/18/16 03/19/17 Gabapentin 300 mg PO QID 08/18/16 03/19/17 Insulin Aspart [NovoLOG] 10 units SQ TID 08/18/16 03/19/17 Lisinopril 5 mg PO DAILY 08/18/16 03/19/17 Insulin Glargine [Lantus] 25 unit SQ QPM 30 Days ml 09/18/16 03/19/17 SITagliptin [Januvia] 100 mg PO DAILY 09/22/16 03/19/17 Aspirin [Aspirin EC] 81 mg PO DAILY 12/30/16 03/19/17 Ciprofloxacin HCl [Cipro] 500 mg pe PO BID 03/19/17 03/19/17 metroNIDAZOLE [Flagyl] 250 mg PO BID 03/19/17 03/19/17 Ondansetron Odt [Zofran] 4 mg TL Q6H PRN #10 tablet 03/20/17 oxyCODONE [Roxicodone] 5 - 10 mg PO Q6H PRN #12 tablet 08/25/17 - Allergies Allergies/Adverse Reactions: Allergies Allergy/AdvReac Type Severity Reaction Status Date / Time cinnamon Allergy Unknown Verified 03/19/17 20:34 pregabalin [From Lyrica] Allergy Unknown Verified 10/30/16 02:05 - Social History Does the pt smoke?: No Smoking Status: Never smoker Does the pt drink ETOH?: No Does the pt have substance abuse?: Yes Substance Use and Type: Marijuana - Immunizations Immunizations are current?: Yes PD ED PE NORMAL - Vitals Vital signs reviewed: Yes (hypertensive ) - General General: Alert and oriented X 3, Well developed/nourished, Other (withdrawn and with dramatic pain behavior) - HEENT HEENT: Atraumatic, PERRL, EOMI, Ears normal, Other (dry mucous membranes) - Neck Neck: Supple, no meningeal sign, No bony TTP, Other (moves the neck well and complains of pain ) - Cardiac Cardiac: RRR, No murmur - Respiratory Respiratory: No respiratory distress, Clear bilaterally - Abdomen Abdomen: Soft, Non tender - Back Back: No CVA TTP, No spinal TTP - Derm Derm: Normal color, Warm and dry, No rash - Extremities Extremities: No deformity, No edema - Neuro Neuro: Alert and oriented X 3, 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, No motor deficit, No sensory deficit, Normal speech Eye Opening: Spontaneous Motor: Obeys Commands Verbal: Oriented GCS Score: 15 - Psych Psych: Other (mood is withdrawn and the affect is flat) Results - Vitals Vitals: Vital Signs - 24 hr 08/25/17 08/25/17 08/25/17 06:25 08:20 12:42 Temperature 37.4 C 36.3 C L Heart Rate 79 70 85 Respiratory 16 20 18 Rate Blood Pressure 136/85 H 124/78 131/84 H O2 Saturation 97 96 99 Oxygen O2 Source Room air - Labs Labs: Laboratory Tests 08/25/17 08/25/17 08/25/17 06:40 06:40 07:00 WBC 6.9 RBC 4.72 Hgb 14.4 Hct 43.7 MCV 92.6 MCH 30.6 MCHC 33.0 RDW 13.2 Plt Count 180 MPV 9.5 Neut # 3.7 Lymph # 2.1 [place] # 0.9 Eos # 0.1 Baso # 0.0 Absolute Nucleated RBC 0.00 Nucleated RBC % 0.0 Sodium 132 L Potassium 3.6 Chloride 101 Carbon Dioxide 21 Anion Gap 10.0 BUN 16 Creatinine 0.9 Estimated GFR (MDRD) 88 L Glucose 297 H Calcium 8.3 L Total Bilirubin 0.6 AST 25 ALT 22 Alkaline Phosphatase 77 Total Protein 7.2 Albumin 4.1 Globulin 3.1 Albumin/Globulin Ratio 1.3 Lipase 30 Urine Color DARK YELLOW Urine Clarity CLOUDY Urine pH 5.0 Ur Specific [place] >=1.030 H Urine Protein TRACE Urine Glucose (UA) 500 H Urine Ketones NEGATIVE Urine Occult Blood SMALL H Urine Nitrite NEGATIVE Urine Bilirubin NEGATIVE Urine Urobilinogen 0.2 (NORMAL) Ur Leukocyte Esterase NEGATIVE Urine RBC 0-5 Urine WBC 0-3 Ur Squamous Epith Cells FEW Squamous Urine Bacteria Moderate H Urine Mucus Moderate Strands Ur Microscopic Review INDICATED Urine Culture Comments INDICATED Urine Opiates Screen Ur Oxycodone Screen Urine Methadone Screen Ur Propoxyphene Screen Ur Barbiturates Screen Ur Tricyclics Screen Ur Phencyclidine Scrn Ur Amphetamine Screen U Methamphetamines Scrn U Benzodiazepines Scrn Urine Cocaine Screen U Cannabinoids Screen 08/25/17 10:20 WBC RBC Hgb Hct MCV MCH MCHC RDW Plt Count MPV Neut # Lymph # [place] # Eos # Baso # Absolute Nucleated RBC Nucleated RBC % Sodium Potassium Chloride Carbon Dioxide Anion Gap BUN Creatinine Estimated GFR (MDRD) Glucose Calcium Total Bilirubin AST ALT Alkaline Phosphatase Total Protein Albumin Globulin Albumin/Globulin Ratio Lipase Urine Color Urine Clarity Urine pH Ur Specific [place] Urine Protein Urine Glucose (UA) Urine Ketones Urine Occult Blood Urine Nitrite Urine Bilirubin Urine Urobilinogen Ur Leukocyte Esterase Urine RBC Urine WBC Ur Squamous Epith Cells Urine Bacteria Urine Mucus Ur Microscopic Review Urine Culture Comments Urine Opiates Screen NEGATIVE Ur Oxycodone Screen NEGATIVE Urine Methadone Screen NEGATIVE Ur Propoxyphene Screen NEGATIVE Ur Barbiturates Screen NEGATIVE Ur Tricyclics Screen NEGATIVE Ur Phencyclidine Scrn NEGATIVE Ur Amphetamine Screen NEGATIVE U Methamphetamines Scrn NEGATIVE U Benzodiazepines Scrn NEGATIVE Urine Cocaine Screen NEGATIVE U Cannabinoids Screen POSITIVE H - Rads (name of study) 2 view chest Radiology: Prelim report reviewed (Impression: No active disease.), EMP read indepedently, See rad report Procedures - Bedside sono Bedside sono by EMP: With use of bedside ultrasound the right kidney is imaged it is sonographically nontender and without evidence of hydronephrosis. - IVC sono (time) 0810 Bedside IVC sono: IVC measures (cm) (1.14), IVC collapsed c insp (cm) (complete) , Dehydration (est 1 liter deficit) PD MEDICAL DECISION MAKING - ED course Complexity details: reviewed results, re-evaluated patient, considered differential, d/w patient, d/w family ED course: 51-year-old male with a history of prior fictitious presentations presents today with all over body pain numbness in his hands and feet pain in his right shoulder and right chest. He has had prior cervical hardware placed and initially he is administered some dexamethasone and Toradol which does not appear to help much with his pain. He repeatedly requests pain medication. A workup is unremarkable. He did have x-ray of the chest done and he is eventually administered morphine and Zofran with some improvement in his pain. The only objective finding on workup is dehydration with interrogation of the inferior vena cava. He is administered a liter of saline. There are no other specific findings. Departure - Departure Disposition: 01 Home, Self Care Clinical Impression: Dehydration Pain in right shoulder Qualifiers: Chronicity: acute Qualified Code(s): M25.511 - Pain in right shoulder Condition: Stable Instructions: ED Dehydration, ED Acute Pain [facility] Follow-Up: Karma Gotti ARNP [Primary Care Provider] - Prescriptions: oxyCODONE [Roxicodone] 5 - 10 mg PO Q6H PRN #12 tablet PRN Reason: Pain Discharge Date/Time: 08/25/17 13:00
--- NOTE | 2017-08-25 09:05 | XRAY Preliminary Report ---
Exam: XR CHEST 2 VIEW X-RAY IMPRESSION: No active disease [facility] SITE ID: [id number]
--- NOTE | 2017-08-25 09:05 | XRAY Report ---
EXAM: CHEST RADIOGRAPHY EXAM DATE: 08/25/2017 08:52 AM. CLINICAL HISTORY: Right sided chest pain. COMPARISON: 10/20/2016. TECHNIQUE: 2 views. FINDINGS: Lungs/Pleura: No focal opacities evident. No pleural effusion. No pneumothorax. Normal volumes. Mediastinum: Heart and mediastinal contours are unremarkable. Other: Cervical spine plates IMPRESSION: No active disease [facility] Referring Provider Line: [phone] SITE ID: [id number]
[2017-08-25 10:32] LABS: MUDS CUTOFF CONCENTRATIONS CUTOFF CONC BELOW:
[2017-08-25 10:47] LABS: AMPHETAMINE SCREEN,URINE NEGATIVE (NEGATIVE); BENZODIAZEPINES SCREEN, URINE NEGATIVE (NEGATIVE); COCAINE SCREEN URINE NEGATIVE (NEGATIVE); METHADONE SCREEN, URINE NEGATIVE (NEGATIVE); METHAMPHETAMINES SCREEN, URINE NEGATIVE (NEGATIVE); OPIATE SCREEN, URINE NEGATIVE (NEGATIVE); OXYCODONE SCREEN, URINE NEGATIVE (NEGATIVE); PROPOXYPHENE SCREEN, URINE NEGATIVE (NEGATIVE); TRICYCLIC ANTIDEPRESSANT,URINE NEGATIVE (NEGATIVE)
[2017-08-25] MEDS ORDERED: MORPHINE 10 MG/ML VIAL IVP STA ×2 (12:25→12:26)
[2017-08-25] MEDS ORDERED: ONDANSETRON 4 MG/2 ML VIAL IVP STA (12:26)
[2017-08-25 12:43] VITALS: BP 131/84
== END 2017-08-25 13:00 | disposition home or self-care (01) ==
LOC: EDUNIT# → ED 06:24
DX: E86.0 Dehydration (principal); M25.511 Pain in right shoulder; E78.00 Pure hypercholesterolemia, unspecified; E11.9 Type 2 diabetes mellitus without complications; Z79.4 Long term (current) use of insulin; Z79.82 Long term (current) use of aspirin
CPT/HCPCS: 36415; 71046; 80053; 80306; 81001; 81003; 83690; 85025; 87086; 96361; 96374; 96375; 99284

== ENCOUNTER 2017-09-22 14:12 | Outpatient (CLI) | payer MEDICAID ==
[2017-09-22 19:42] LABS: THYROID STIMULATING HORMONE 0.08 uIU/mL (0.34-5.60)
[2017-09-22 19:44] LABS: FREE T4 (FREE THYROXINE) 0.78 ng/dL (0.58-1.64)
== END 2017-09-22 14:13 | disposition home or self-care (01) ==
LOC: LAB.N 14:12
PROVIDERS: ATTEND Family Medicine
DX: E23.0 Hypopituitarism (principal)
CPT/HCPCS: 36415; 84439; 84443; 84481

== ENCOUNTER 2017-10-26 13:38 | Outpatient (CLI) | payer MEDICAID | END 2017-10-26 13:39 | disposition critical access hospital (66) | LOC: EMS 13:38 | PROVIDERS: ATTEND Surgery | DX: M54.9 Dorsalgia, unspecified (principal); R53.1 Weakness | CPT/HCPCS: A0425; A0427; A0999 ==

== ENCOUNTER 2017-10-26 14:03 | Observation (INO) | payer MEDICAID ==
--- NOTE | 2017-10-26 14:11 | ED Physician Documentation ---
PD HPI BACK PAIN - Stated complaint Stated Complaint: BACK PX - History obtained from History obtained from: Patient - History of Present Illness Timing - onset: How many hours ago (1-2), Today Timing - duration: Hours Timing - details: Abrupt onset, Still present Location: Lower, Right, Left Quality: Pain, Sharp, Aching Associated symptoms: Weakness (left leg), Numbness (down left leg anteriorly and then medially lower.). No: Fever, Incontinent of urine Worsened by: Movement, Palpation Contributing factors: Lifting, Twisting (he just bent to potato picker light object and had onset of marked pain in low back.) Recently seen: Not recently seen Review of Systems Constitutional: denies: Fever, Myalgias Nose: denies: Rhinorrhea / runny nose, Congestion Throat: denies: Sore throat Respiratory: denies: Cough GI: reports: Abdominal Pain. denies: Nausea, Vomiting, Diarrhea, Bloody / black stool : denies: Dysuria, Frequency Skin: denies: Abrasion (s), Laceration (s) Neurologic: reports: Focal weakness (left leg and foot), Numbness Psychiatric: reports: Anxiety. denies: Depressed, Suicidal, Insomnia Endocrine: denies: Weight loss Immunocompromised: denies: Immunocompromised PD PAST MEDICAL HISTORY - Past Medical History Cardiovascular: High cholesterol Respiratory: None Endocrine/Autoimmune: Type 2 diabetes GI: None : Kidney stones Psych: Depression, Bipolar disorder Musculoskeletal: Chronic back pain Derm: Other - Past Surgical History Past Surgical History: Yes General: Appendectomy - Present Medications Home Medications: Ambulatory Orders Medication Instructions Recorded Confirmed Atorvastatin [Lipitor] 10 mg PO QPM 08/18/16 03/19/17 Cyclobenzaprine [Flexeril] 10 mg PO TID PRN 08/18/16 03/19/17 Gabapentin 300 mg PO QID 08/18/16 03/19/17 Insulin Aspart [NovoLOG] 10 units SQ TID 08/18/16 03/19/17 Lisinopril 5 mg PO DAILY 08/18/16 03/19/17 Insulin Glargine [Lantus] 25 unit SQ QPM 30 Days ml 09/18/16 03/19/17 SITagliptin [Januvia] 100 mg PO DAILY 09/22/16 03/19/17 Aspirin [Aspirin EC] 81 mg PO DAILY 12/30/16 03/19/17 Ciprofloxacin HCl [Cipro] 500 mg pe PO BID 03/19/17 03/19/17 metroNIDAZOLE [Flagyl] 250 mg PO BID 03/19/17 03/19/17 Ondansetron Odt [Zofran] 4 mg TL Q6H PRN #10 tablet 03/20/17 oxyCODONE [Roxicodone] 5 - 10 mg PO Q6H PRN #12 tablet 08/25/17 - Allergies Allergies/Adverse Reactions: Allergies Allergy/AdvReac Type Severity Reaction Status Date / Time cinnamon Allergy Unknown Verified 03/19/17 20:34 pregabalin [From Lyrica] Allergy Unknown Verified 10/30/16 02:05 - Social History Does the pt smoke?: No Smoking Status: Never smoker Does the pt drink ETOH?: No Does the pt have substance abuse?: Yes - Family History Family history: denies: Aortic aneursym, Aortic dissection - Immunizations Immunizations are current?: Yes PD ED PE NORMAL - Vitals Vital signs reviewed: Yes - General General: Alert and oriented X 3, Well developed/nourished, Other (patient anxious and conversant. Appears in pain. ) - HEENT HEENT: Atraumatic, Pharynx benign - Neck Neck: Supple, no meningeal sign, No adenopathy - Cardiac Cardiac: RRR, No murmur - Respiratory Respiratory: Clear bilaterally - Abdomen Abdomen: Normal bowel sounds, Soft, Non distended, No organomegaly, Other ( markedly tender lower abd/LLQ area with guarding and percussion tenderness, no rebound. ) - Male Male : Other (normal genitalia and testicles not tender. ) - Rectal Rectal: Deferred - Back Back: No CVA TTP, No spinal TTP (tender in lower back left side mostly but right as well moderately. Abdomen tender lower abd. ) - Derm Derm: Normal color, Warm and dry, No rash - Extremities Extremities: No edema, No calf tenderness / cord, Other (left thigh and lower leg tender to palpation muscles. Normal pulses and color in ankle/toes. 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 Has 1+ DTRs at both knees. sensation to pinprick present both legs, but less sensation of it in left leg subjectively. ) Results - Vitals Vitals: Vital Signs - 24 hr 10/26/17 10/26/17 14:32 17:08 Temperature 36.6 C 36.6 C Heart Rate 79 83 Respiratory 18 12 Rate Blood Pressure 130/76 117/79 O2 Saturation 97 96 Oxygen O2 Source Room air - Labs Labs: Laboratory Tests 10/26/17 10/26/17 10/26/17 15:07 15:07 15:07 WBC 8.4 RBC 4.91 Hgb 15.4 Hct 45.7 MCV 93.1 MCH 31.4 H MCHC 33.8 RDW 12.7 Plt Count 189 MPV 9.4 Neut # (Auto) 5.9 Lymph # (Auto) 1.6 [place] # (Auto) 0.8 Eos # (Auto) 0.1 Baso # (Auto) 0.0 Absolute Nucleated RBC 0.00 Nucleated RBC % 0.0 ESR 2 Sodium 136 Potassium 4.1 Chloride 103 Carbon Dioxide 25 Anion Gap 8.0 BUN 16 Creatinine 0.7 Estimated GFR (MDRD) 118 Glucose 236 H Calcium 8.9 Total Bilirubin 0.8 AST 23 ALT 26 Alkaline Phosphatase 84 Total Creatine Kinase Total Protein 7.3 Albumin 4.2 Globulin 3.1 Albumin/Globulin Ratio 1.4 Lipase 24 Urine Color Urine Clarity Urine pH Ur Specific [place] Urine Protein Urine Glucose (UA) Urine Ketones Urine Occult Blood Urine Nitrite Urine Bilirubin Urine Urobilinogen Ur Leukocyte Esterase Ur Microscopic Review Urine Culture Comments 10/26/17 10/26/17 15:07 16:58 WBC RBC Hgb Hct MCV MCH MCHC RDW Plt Count MPV Neut # (Auto) Lymph # (Auto) [place] # (Auto) Eos # (Auto) Baso # (Auto) Absolute Nucleated RBC Nucleated RBC % ESR Sodium Potassium Chloride Carbon Dioxide Anion Gap BUN Creatinine Estimated GFR (MDRD) Glucose Calcium Total Bilirubin AST ALT Alkaline Phosphatase Total Creatine Kinase 106 Total Protein Albumin Globulin Albumin/Globulin Ratio Lipase Urine Color YELLOW Urine Clarity CLEAR Urine pH 5.5 Ur Specific [place] 1.020 Urine Protein NEGATIVE Urine Glucose (UA) 500 H Urine Ketones NEGATIVE Urine Occult Blood NEGATIVE Urine Nitrite NEGATIVE Urine Bilirubin NEGATIVE Urine Urobilinogen 0.2 (NORMAL) Ur Leukocyte Esterase NEGATIVE Ur Microscopic Review NOT INDICATED Urine Culture Comments NOT INDICATED - Rads (name of study) abd/pelvic CT Radiology: Prelim report reviewed (no acute process), EMP read contemporaneously duplex arterial left leg Radiology: Prelim report reviewed (normal flow in left leg. ) PD MEDICAL DECISION MAKING - ED course Complexity details: re-evaluated patient (he seems pleasant and sincere about his weakness, though can hold leg up after I lift it for him. Does have signficant pain in back and also abdomen despite several doses of meds. Will need to have in hospital for further treatment and to consider MRI imaging of lumbar. ), considered differential (Has abrupt pain in lower back down to legs/ mostly left leg, with left leg weakness. Also has pain in abdomen and tenderness abdomen. States left leg pain and tenderness to the touch as well. Abd/pelvic CT without acute process. Arterial duplex left leg with good flow. Consider paraspinous process. WBC, ESR and temp are normal, so not sounding abscess. Consider disc protrusion or hematoma, with onset while just bending/ lifting. Consider MRI. 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 I talked with Hospitalist here, as would not be able to get further imaging elsewhere any sooner than tomorrow as well. I do not feel his symptoms are emergent to look for other transfer sites, but urgent for further testing if not improved into tomorrow and needs further treatment for the intractable pain. ) - Sepsis Event Vital Signs: Vital Signs - 24 hr 10/26/17 10/26/17 14:32 17:08 Temperature 36.6 C 36.6 C Heart Rate 79 83 Respiratory 18 12 Rate Blood Pressure 130/76 117/79 O2 Saturation 97 96 Oxygen O2 Source Room air Departure - Departure Disposition: ED Place in Observation Clinical Impression: Intractable low back pain, Left leg weakness Condition: Stable Record reviewed to determine appropriate education?: Yes Discharge Date/Time: 10/26/17 21:10
[2017-10-26] MEDS ORDERED: ONDANSETRON 4 MG/2 ML VIAL IVP STA (14:59)
[2017-10-26] MEDS ORDERED: SODIUM CHLORIDE 0.9% 1,000 ML IV ONE (14:59)
[2017-10-26] MEDS ORDERED: HYDROmorphone 1 MG/ML CARPUJECT IVP STA ×3 (14:59→17:19)
[2017-10-26 15:14] LABS: BASOPHILS % (AUTO) 0.5 %; EOSINOPHILS # (AUTO) 0.1 10^3/uL (0.0-0.7); EOSINOPHILS % (AUTO) 0.9 %; HGB - HEMOGLOBIN 15.4 g/dL (14.0-18.0); LYMPHOCYTES # (AUTO) 1.6 10^3/uL (1.5-3.5); LYMPHOCYTES % (AUTO) 18.6 %; MEAN CORPUSCULAR HEMOGLOBIN 31.4 pg (27.0-31.0); MEAN CORPUSCULAR HGB CONC 33.8 g/dL (32.0-36.0); MEAN CORPUSCULAR VOLUME 93.1 fL (80.0-94.0); MEAN PLATELET VOLUME 9.4 fL (7.4-11.4); MONOCYTES # (AUTO) 0.8 10^3/uL (0.0-1.0); MONOCYTES % (AUTO) 9.8 %; NEUTROPHILS # (AUTO) 5.9 10^3/uL (1.5-6.6); NEUTROPHILS % (AUTO) 70.2 %; PLT - PLATELET COUNT 189 10^3/uL (130-450); RED BLOOD COUNT 4.91 10^6/uL (4.70-6.10); RED CELL DISTRIBUTION WIDTH 12.7 % (12.0-15.0); WHITE BLOOD COUNT 8.4 x10^3/uL (4.8-10.8)
[2017-10-26 15:27] LABS: ALBUMIN 4.2 g/dL (3.2-5.5); ALBUMIN/GLOBULIN RATIO 1.4 (1.0-2.2); BILIRUBIN,TOTAL 0.8 mg/dL (0.2-1.0); CALCIUM 8.9 mg/dL (8.5-10.3); CREATININE 0.7 mg/dL (0.6-1.2); TOTAL PROTEIN 7.3 g/dL (6.7-8.2)
[2017-10-26] MEDS ORDERED: LORazepam 2 MG/ML VIAL IVP STA (15:31)
[2017-10-26] MEDS ORDERED: IOPAMIDOL-300 100 ML VIAL ONE (15:41)
[2017-10-26] MEDS ORDERED: IOPAMIDOL-300 100 ML VIAL IVP ONE (15:59)
--- NOTE | 2017-10-26 16:16 | CT Report ---
Procedure Date: 10/26/2017 Accession Number: [id number] / [id number] Procedure: CT - Abdomen/Pelvis W/ CPT Code: FULL RESULT: EXAM: CT ABDOMEN AND PELVIS EXAM DATE: 10/26/2017 03:54 PM. CLINICAL HISTORY: Abrupt low back/abdOMEN pain today. COMPARISONS: ABDOMEN/PELVIS W/ 12/17/2016 11:09 AM. TECHNIQUE: Routine helical CT imaging was performed through the abdomen and pelvis. IV contrast: 100 cc of Isovue-300. Enteric contrast: No. Reconstructions: Coronal and sagittal. In accordance with CT protocol optimization, one or more of the following dose reduction techniques were utilized for this exam: automated exposure control, adjustment of mA and/or KV based on patient size, or use of iterative reconstructive technique. FINDINGS: Lung Bases: Unremarkable. Liver: Normal. No masses. Gallbladder/Bile Ducts: Unremarkable. Spleen: Normal. Pancreas: Normal. Adrenal Glands: Normal. Kidneys: Normal. No masses or hydronephrosis. Peritoneal Cavity/Bowel: Normal. No free fluid, free air or adenopathy. No masses or acute inflammatory process. Appendectomy clips noted. Pelvic Organs: The prostate and bladder are unremarkable. Vasculature: No aneurysms or other significant abnormality. Bones: No significant abnormality. Other: None. IMPRESSION: Normal abdomen and pelvis CT. RADIA
[2017-10-26] MEDS ORDERED: KETOROLAC 60 MG/2 ML VIAL IVP STA (17:19)
[2017-10-26 17:42] LABS: BILIRUBIN,URINE NEGATIVE (NEGATIVE); GLUCOSE, URINE (UA) 500 mg/dL (NEGATIVE); KETONES,URINE (UA) NEGATIVE (NEGATIVE); LEUKOCYTE ESTERASE, URINE NEGATIVE (NEGATIVE); NITRITE,URINE NEGATIVE (NEGATIVE); OCCULT BLOOD,URINE NEGATIVE (NEGATIVE); PH,URINE 5.5 PH (5.0-7.5); PROTEIN,URINE NEGATIVE (NEGATIVE); UROBILINOGEN,URINE 0.2 (NORMAL) E.U./dL (NORMAL)
[2017-10-26 17:44] LABS: CLARITY,URINE CLEAR (CLEAR)
[2017-10-26] MEDS ORDERED: DEXAMETHASONE 10 MG/ML VIAL IVP STA (18:15)
[2017-10-26] MEDS ORDERED: ACETAMINOPHEN 325 MG TABLET PO STA (18:15)
--- NOTE | 2017-10-26 18:59 | Ultrasound Report ---
Procedure Date: 10/26/2017 Accession Number: [id number] / [id number] Procedure: US - Duplex Lwr Ext Arterial LT CPT Code: FULL RESULT: EXAM: LEFT LOWER EXTREMITY ARTERIAL DOPPLER ULTRASOUND EXAM DATE: 10/26/2017 06:50 PM. CLINICAL HISTORY: Left leg pain onset today. COMPARISON: None. TECHNIQUE: Real-time sonographic vascular imaging was performed by the capital campaign fundraiser, utilizing color-flow, Doppler flow, and spectral analysis. Multiple liability claims representative static images were saved for review. 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 Triphasic waveform. PSFA: PSV 69 cm/sec. Triphasic waveform. MSFA: PSV 84 cm/sec. Triphasic waveform. DSFA: PSV 76 cm/sec. Triphasic waveform. PFA: PSV 69 cm/sec. Triphasic waveform. POP: PSV 53 cm/sec. Triphasic waveform. DAVINA: PSV 67 cm/sec. Triphasic waveform. WOOD GOUGER: PSV 64 cm/sec. Triphasic waveform. PER: PSV 24 cm/sec. Triphasic waveform. DPA: PSV 74 cm/sec. Triphasic waveform. IMPRESSION: Normal left lower extremity arterial Doppler ultrasound. RADIA
[2017-10-26] MEDS ORDERED: PROMETHAZINE 25 MG/1 ML VIAL IM PRN (20:31)
[2017-10-26] MEDS ORDERED: ACETAMINOPHEN 325 MG TABLET PO PRN (20:31)
[2017-10-26] MEDS ORDERED: PROCHLORPERAZINE 10 MG/2 ML VIAL IVP PRN (20:31)
[2017-10-26] MEDS ORDERED: ZOLPIDEM 5 MG TABLET PO PRN (20:31)
[2017-10-26] MEDS ORDERED: SODIUM CHLORIDE FLUSH 0.9% 10 ML SYRINGE IVP PRN (20:31)
[2017-10-26] MEDS ORDERED: ONDANSETRON 4 MG/2 ML VIAL IVP PRN (20:31)
[2017-10-26] MEDS ORDERED: oxyCODONE 5 MG TABLET PO PRN (20:31)
--- NOTE | 2017-10-26 20:40 | HISTORY & PHYSICAL EXAMINATION ---
Chief Complaint - Chief Complaint Chief Complaint: Back pain History of Present Illness - Admitted From Admitted From:: Emergency department - History Obtained From Records Reviewed: Yes History obtained from: Patient Exam Limitations: Difficulty ambulating secondary to back pain and left leg weakness - History of Present Illness HPI Comment/Other: Patient is a 52-year-old gentleman with a past medical history significant for hypertension, type 2 diabetes mellitus on insulin, hypothyroidism and bipolar who presents to the emergency department with a chief complaint of back pain. The patient states that he was in his normal state of health and was at [employer] [facility]. 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 He states that around noon he began feeling pain in his lower back which was radiating around his abdomen and into the front of his pelvic/lower abdominal area. The patient states that he continued to try to carry around materials however he states that he felt his legs giving out on him. He states that initially he did not make much of it however as he continued to work he felt as though his legs were like Jell-O. He states at this point he took a gabapentin and rested for about 15 minutes. He states that he is tried to start back up with the work but again felt like his legs were Jell-O and eventually his legs gave out on him. He states that there was another coworker right beside him who was able to catch him and lower him to the floor. The patient states that he continued to have low back pain that was excruciating in 10 out of 10. They continue to radiate around into the front of his lower abdomen/pelvis. He states that his lower back pain got worse over the course of a couple of hours and peaked at the point when he was on the floor. He states the pain at the worst was 10 out of 10. He states that he could not get up from the floor and came into the emergency department by ambulance. The patient states he is had issues with neck pain in the past and has had a cervical fusion. He states however he has never had any issues with lower back pain. The patient denies any fevers or chills. He denies any urinary or fecal incontinence. The patient does admit to having burning with urination and feeling the urge to go but not being able to urinate. The patient denies any other focal neurologic deficits. He states that his left leg is weaker than his right leg. But he is scared to try to get up as he feels like he will again fall to the floor because his legs feel like Jell-O. He states that the back pain does radiate down his legs when he tries to lift them up. The patient states that before this he was doing very well and has felt great for months. Patient denies any headaches, blurred vision, runny nose, sore throat, nasal congestion, difficulty swallowing, chest pain, fevers, chills, cough, shortness of breath, orthopnea, PND, increased lower extremity swelling, joint pain, joint swelling, abdominal distention, abdominal pain, nausea, vomiting, diarrhea , constipation, neck stiffness, recent unintentional weight loss, changes in his appetite, skin changes, hair loss, polyuria, polydipsia. On presentation to the emergency department the patient was afebrile and vital signs were all within normal limits. The patient appear to be in significant distress due to his severe lower back pain which was bandlike and radiated to the front. The emergency room physician was concerned and ordered routine lab work which was all within normal limits aside from an elevated glucose of 236. The patient's urine analysis was negative. The patient then underwent imaging with a CT of his abdomen pelvis given that he stated the pain was radiating around to the lower abdomen. The CT of his abdomen pelvis was completely normal. The patient on examination was found to have bilateral lower extremity weakness however his left lower extremity was significantly weaker than the right lower extremity. The patient also had decreased sensations in bilateral lower extremities and decreased reflexes in bilateral lower extremities. While the patient was in the emergency department he began feeling as though he had numbness and tingling in his left foot and felt as though his leg was cold therefore the emergency room physician ordered an arterial Doppler ultrasound of the left lower extremity which was completely normal. The patient was given several doses of IV Dilaudid, Decadron, Tylenol, Toradol, Ativan and IV fluid while in the emergency department. None of this seemed to improve the patient' s symptoms. Given the patient's intractable back pain he was placed in observation. History - Past Medical History Cardiovascular: reports: Hypertension, High cholesterol Respiratory: reports: None Endocrine/Autoimmune: reports: Type 2 diabetes, HyPOthyroidism GI: reports: None : reports: Kidney stones Psych: reports: Depression, Bipolar disorder Musculoskeletal: reports: Chronic back pain (s/p cervical fusion) Derm: reports: Other MRSA Hx?: No - Past Surgical History General: reports: Appendectomy - Family & Social History Family History: Other family: Diabetes, Type 2 (Grandmother) Family History Comment/Other: Patient is estranged from his mother and never knew his father. Living arrangement: At home Living Situation: With family Social History Notes: The patient lives with his daughter in [place] at [facility]. 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 He quit smoking cigarettes 4 years ago and prior to that was smoking about a pack a day for 30 years. The patient drinks alcohol rarely but he does smoke weed 2-3 times a week - POLST Patient has POLST: No POLST Status: Full Code Meds/Allgy - Home Medications Home Medications: Ambulatory Orders Medication Instructions Recorded Confirmed Atorvastatin [Lipitor] 10 mg PO QPM 08/18/16 03/19/17 Cyclobenzaprine [Flexeril] 10 mg PO TID PRN 08/18/16 03/19/17 Gabapentin 300 mg PO QID 08/18/16 03/19/17 Insulin Aspart [NovoLOG] 10 units SQ TID 08/18/16 03/19/17 Lisinopril 5 mg PO DAILY 08/18/16 03/19/17 Insulin Glargine [Lantus] 25 unit SQ QPM 30 Days ml 09/18/16 03/19/17 SITagliptin [Januvia] 100 mg PO DAILY 09/22/16 03/19/17 Aspirin [Aspirin EC] 81 mg PO DAILY 12/30/16 03/19/17 Ciprofloxacin HCl [Cipro] 500 mg pe PO BID 03/19/17 03/19/17 metroNIDAZOLE [Flagyl] 250 mg PO BID 03/19/17 03/19/17 Ondansetron Odt [Zofran] 4 mg TL Q6H PRN #10 tablet 03/20/17 oxyCODONE [Roxicodone] 5 - 10 mg PO Q6H PRN #12 tablet 08/25/17 - Allergies Allergies/Adverse Reactions: Allergies Allergy/AdvReac Type Severity Reaction Status Date / Time cinnamon Allergy Unknown Verified 03/19/17 20:34 pregabalin [From Lyrica] Allergy Unknown Verified 10/30/16 02:05 Review of Systems - Other Findings Other Findings: A comprehensive review of systems was performed the pertinent positives and negatives are stated above in the HPI and the remainder of the review of systems is negative. Exam - Vital Signs Reviewed Vital Signs: Yes Vital Signs: Vital Signs x48h Temp Pulse Resp BP Pulse Ox 10/26/17 17:08 36.6 C 83 12 117/79 96 10/26/17 14:32 36.6 C 79 18 130/76 97 - Physical Exam General Appearance: positive: Alert, Moderate distress (Secondary to back pain) Eyes Bilateral: positive: Normal inspection, PERRL, EOMI, No lid inflammation, Conjunctivae nml, No scleral icterus ENT: positive: ENT inspection nml, Pharynx nml, No signs of dehydration. negative: Purulent nasal drainage, Pharyngeal erythema, Oral lesions Neck: positive: Nml inspection, Thyroid nml, No JVD, Trachea midline. negative : Lymphadenopathy (R), Lymphadenopathy (L), Carotid bruit, Tracheal deviation Respiratory: positive: Chest non-tender, No respiratory distress, Breath sounds nml. negative: Wheezes, Rales, Rhonchi Cardiovascular: positive: Regular rate & rhythm, No murmur, No gallop Peripheral Pulses: positive: 2+ Abdomen: positive: No organomegaly, Nml bowel sounds, No distention, Tenderness (Lower abdomen). negative: Guarding, Rebound, Hepatomegaly Back: positive: Other (Difficulty with extention and flexion of spine secondary to pain localized in lower back). negative: CVA tenderness (R), CVA tenderness (L) Skin: positive: Color nml, No rash, Warm, Dry. negative: Cyanosis, Diaphoresis , Pallor Extremities: positive: Nml appearance, No pedal edema, Other (Patient has excruciating pain when he tries to lift either of his legs. Pain is worse with lifting left leg. Pain starts in lower back and radiates down the legs. Patients legs are both weak but left is weaker than right.) Neurologic/Psychiatric: positive: Oriented x3, CN's nml (2-12), Mood/affect nml , Weakness (Decreased strength bilateral LE but left is weaker than right. 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 The patient appears likely to have herniated his disc as he does have lumbosacral radiculopathy down bilateral legs. What is concerning is the patient also appears to have some lower extremity weakness left greater than right. The patient does not have any urinary or fecal incontinence at this time. Despite several doses of IV Dilaudid, Toradol and steroids in the emergency department the patient did not appear to have any significant improvement of his pain. Patient was also unable to ambulate due to weakness in his lower extremities and pain in his back therefore he was placed in observation for pain control. Plan: Patient will be treated with prednisone, ibuprofen, gabapentin, Flexeril, Tylenol, oxycodone and Dilaudid as needed for pain. Patient likely has inflammation in his lumbosacral spine and therefore prednisone and ibuprofen should be effective in decreasing this inflammation. On exam the patient also has muscle spasms in his lower back which may be alleviated by gabapentin and Flexeril. Given the patient's lower extremity weakness although it does appear likely to be due to the severe pain I feel that it is necessary to get in a MRI of the lumbosacral spine to rule out any cord compression. (2) Left leg weakness Conclusion/Plan: The patient appears to have lumbosacral radiculopathy likely secondary to injury of his lower back during lifting activity earlier today. The patient however does have bilateral lower extremity weakness with the left lower extremity being weaker than the right. The patient does not have any urinary or fecal incontinence. The weakness appears likely to be secondary to pain however is not completely clear on examination. In order to rule out cord compression we will get an MRI of the patient's lumbosacral spine. We will continue to treat the patient's likely spinal strain/injury as stated above which will hopefully improve the patient's weakness. (3) Insulin dependent type 2 diabetes mellitus, uncontrolled Conclusion/Plan: Patient has history of type 2 diabetes mellitus on insulin. The patient's blood glucose is elevated on presentation at 236. The patient is on home Lantus and NovoLog along with Januvia. Plan: Januvia will be held while the patient is hospitalized Patient will be continued on his home dose of Lantus Patient will be placed on sliding scale insulin with meals Patient will be getting steroids therefore we will need to monitor his blood glucose closely as blood sugars will likely be elevated Check hemoglobin A1c Check blood glucose before meals at bedtime (4) Anxiety and depression Conclusion/Plan: Patient is a history of bipolar with anxiety and depression. The patient states that his mood has been stable for over a year now. He is not on any antihypertensive or bipolar medications at this time. (5) Hypertension Conclusion/Plan: Blood pressure is well controlled despite ongoing pain. We will continue the patient's home dose of lisinopril and continue to monitor his blood pressure while he is hospitalized. Qualifiers: Hypertension type: essential hypertension Qualified Code(s): I10 - Essential (primary) hypertension (6) Hyperlipidemia Conclusion/Plan: Continue patient's home dose of Lipitor Qualifiers: Hyperlipidemia type: unspecified Qualified Code(s): E78.5 - Hyperlipidemia , unspecified - Lab Results Lab results reviewed: Yes Fish Bones: 10/26/17 15:07 10/26/17 15:07 Other Lab Results: Laboratory Results WBC 8.4 x10^3/uL (4.8-10.8) 10/26/17 15:07 RBC 4.91 10^6/uL (4.70-6.10) 10/26/17 15:07 Hgb 15.4 g/dL (14.0-18.0) 10/26/17 15:07 Hct 45.7 % (42.0-52.0) 10/26/17 15:07 MCV 93.1 fL (80.0-94.0) 10/26/17 15:07 MCH 31.4 pg (27.0-31.0) H 10/26/17 15:07 MCHC 33.8 g/dL (32.0-36.0) 10/26/17 15:07 RDW 12.7 % (12.0-15.0) 10/26/17 15:07 Plt Count 189 10^3/uL (130-450) 10/26/17 15:07 MPV 9.4 fL (7.4-11.4) 10/26/17 15:07 Neut # (Auto) 5.9 10^3/uL (1.5-6.6) 10/26/17 15:07 Lymph # (Auto) 1.6 10^3/uL (1.5-3.5) 10/26/17 15:07 [place] # (Auto) 0.8 10^3/uL (0.0-1.0) 10/26/17 15:07 Eos # (Auto) 0.1 10^3/uL (0.0-0.7) 10/26/17 15:07 Baso # (Auto) 0.0 10^3/uL (0.0-0.1) 10/26/17 15:07 Absolute Nucleated RBC 0.00 x10^3/uL 10/26/17 15:07 Nucleated RBC % 0.0 /100WBC 10/26/17 15:07 ESR 2 mm/Hr (0-20) 10/26/17 15:07 Sodium 136 mmol/L (135-145) 10/26/17 15:07 Potassium 4.1 mmol/L (3.5-5.0) 10/26/17 15:07 Chloride 103 mmol/L (101-111) 10/26/17 15:07 Carbon Dioxide 25 mmol/L (21-32) 10/26/17 15:07 Anion Gap 8.0 (6-13) 10/26/17 15:07 BUN 16 mg/dL (6-20) 10/26/17 15:07 Creatinine 0.7 mg/dL (0.6-1.2) 10/26/17 15:07 Estimated GFR (MDRD) 118 (>89) 10/26/17 15:07 Glucose 236 mg/dL (70-100) H 10/26/17 15:07 Calcium 8.9 mg/dL (8.5-10.3) 10/26/17 15:07 Total Bilirubin 0.8 mg/dL (0.2-1.0) 10/26/17 15:07 AST 23 IU/L (10-42) 10/26/17 15:07 ALT 26 IU/L (10-60) 10/26/17 15:07 Alkaline Phosphatase 84 IU/L (42-121) 10/26/17 15:07 Total Creatine Kinase 106 IU/L (22-269) 10/26/17 15:07 Total Protein 7.3 g/dL (6.7-8.2) 10/26/17 15:07 Albumin 4.2 g/dL (3.2-5.5) 10/26/17 15:07 Globulin 3.1 g/dL (2.1-4.2) 10/26/17 15:07 Albumin/Globulin Ratio 1.4 (1.0-2.2) 10/26/17 15:07 Lipase 24 U/L (22-51) 10/26/17 15:07 Urine Color YELLOW 10/26/17 16:58 Urine Clarity CLEAR (CLEAR) 10/26/17 16:58 Urine pH 5.5 PH (5.0-7.5) 10/26/17 16:58 Ur Specific [place] 1.020 (1.002-1.030) 10/26/17 16:58 Urine Protein NEGATIVE mg/dL (NEGATIVE) 10/26/17 16:58 Urine Glucose (UA) 500 mg/dL (NEGATIVE) H 10/26/17 16:58 Urine Ketones NEGATIVE mg/dL (NEGATIVE) 10/26/17 16:58 Urine Occult Blood NEGATIVE (NEGATIVE) 10/26/17 16:58 Urine Nitrite NEGATIVE (NEGATIVE) 10/26/17 16:58 Urine Bilirubin NEGATIVE (NEGATIVE) 10/26/17 16:58 Urine Urobilinogen 0.2 (NORMAL) E.U./dL (NORMAL) 10/26/17 16:58 Ur Leukocyte Esterase NEGATIVE (NEGATIVE) 10/26/17 16:58 Ur Microscopic Review NOT INDICATED 10/26/17 16:58 Urine Culture Comments NOT INDICATED 10/26/17 16:58 - Diagnostic Imaging Results Diagnostic Imaging Results: positive: Final report reviewed Diagnostic Imaging Results Comments: CT abdomen/pelvis Impression: Normal abdomen and pelvis CT Duplex scan left lower extremity artery Impression: Normal left lower extremity arterial Doppler ultrasound. Core Measures - Anticipated LOS I expect patient to be DC'd or transferred within 96 hours.: Yes - DVT/VTE - Prophylaxis VTE/DVT Prophylaxis med ordered at admit?: Yes
[2017-10-26] MEDS: IBUPROFEN 600 MG TABLET PO PRN (22:30)
[2017-10-26] MEDS: GABAPENTIN 300 MG CAPSULE PO SCH (22:31)
[2017-10-26] MEDS: oxyCODONE 5 MG TABLET PO PRN (22:31)
[2017-10-26] MEDS: INSULIN GLARGINE 300 UNIT/3 ML PEN SUBQ SCH (22:31)
[2017-10-26] MEDS: ATORVASTATIN 10 MG TABLET PO SCH (22:31)
[2017-10-26] MEDS: INSULIN ASPART 300 UNIT/3 ML PEN SUBQ SCH (22:32)
[2017-10-26 23:02] LABS: BILIRUBIN,URINE NEGATIVE (NEGATIVE); GLUCOSE, URINE (UA) 500 mg/dL (NEGATIVE); KETONES,URINE (UA) TRACE mg/dL (NEGATIVE); LEUKOCYTE ESTERASE, URINE NEGATIVE (NEGATIVE); NITRITE,URINE NEGATIVE (NEGATIVE); OCCULT BLOOD,URINE NEGATIVE (NEGATIVE); PROTEIN,URINE NEGATIVE (NEGATIVE); UROBILINOGEN,URINE 0.2 (NORMAL) E.U./dL (NORMAL)
[2017-10-26 23:06] LABS: CLARITY,URINE CLEAR (CLEAR)
[2017-10-27] MEDS: predniSONE 20 MG TABLET PO SCH ×2 (05:03→08:05)
[2017-10-27] MEDS: CYCLOBENZAPRINE 10 MG TABLET PO PRN ×3 (05:06→18:25)
[2017-10-27 05:50] LABS: ALBUMIN 3.7 g/dL (3.2-5.5); ALBUMIN/GLOBULIN RATIO 1.3 (1.0-2.2); BILIRUBIN,TOTAL 0.7 mg/dL (0.2-1.0); CALCIUM 9.1 mg/dL (8.5-10.3); CREATININE 0.7 mg/dL (0.6-1.2); MAGNESIUM 1.9 mg/dL (1.7-2.8); TOTAL PROTEIN 6.6 g/dL (6.7-8.2)
[2017-10-27 06:03] LABS: BASOPHILS % (AUTO) 0.2 %; HGB - HEMOGLOBIN 14.2 g/dL (14.0-18.0); LYMPHOCYTES # (AUTO) 0.5 10^3/uL (1.5-3.5); LYMPHOCYTES % (AUTO) 7.1 %; MEAN CORPUSCULAR HEMOGLOBIN 31.3 pg (27.0-31.0); MEAN CORPUSCULAR HGB CONC 33.2 g/dL (32.0-36.0); MEAN CORPUSCULAR VOLUME 94.3 fL (80.0-94.0); MEAN PLATELET VOLUME 10.2 fL (7.4-11.4); MONOCYTES # (AUTO) 0.1 10^3/uL (0.0-1.0); MONOCYTES % (AUTO) 1.7 %; NEUTROPHILS # (AUTO) 6.4 10^3/uL (1.5-6.6); PLT - PLATELET COUNT 154 10^3/uL (130-450); RED BLOOD COUNT 4.53 10^6/uL (4.70-6.10); RED CELL DISTRIBUTION WIDTH 12.9 % (12.0-15.0); WHITE BLOOD COUNT 7.1 x10^3/uL (4.8-10.8)
[2017-10-27] MEDS: IBUPROFEN 600 MG TABLET PO PRN ×2 (06:13→23:34)
[2017-10-27] MEDS: oxyCODONE 5 MG TABLET PO PRN ×3 (06:13→23:34)
[2017-10-27 06:31] LABS: HEMOGLOBIN A1C 1.27 g/dL; HEMOGLOBIN A1C % 9.9 % (4.6-6.2)
[2017-10-27] MEDS: GABAPENTIN 300 MG CAPSULE PO SCH ×4 (08:05→22:03)
[2017-10-27] MEDS: LISINOPRIL 5 MG TABLET PO SCH (08:05)
[2017-10-27] MEDS: ASPIRIN EC 81 MG TABLET PO SCH (08:05)
[2017-10-27] MEDS: FAMOTIDINE 20 MG TABLET PO SCH (08:05)
[2017-10-27] MEDS: HYDROmorphone 1 MG/ML CARPUJECT IVP PRN ×3 (08:05→22:11)
[2017-10-27] MEDS: POLYETHYLENE GLYCOL 3350 17 GM PACKET PO SCH (08:05)
[2017-10-27] MEDS: ENOXAPARIN 40 MG/0.4 ML SYRINGE SUBQ SCH (08:05)
[2017-10-27] MEDS: INSULIN ASPART 300 UNIT/3 ML PEN SUBQ SCH ×4 (08:06→22:05)
[2017-10-27] MEDS: SODIUM CHLORIDE FLUSH 0.9% 10 ML SYRINGE IVP SCH ×4 (08:06→23:35)
[2017-10-27] MEDS: methIMAzole 5 MG TABLET PO SCH ×2 (11:48→18:14)
[2017-10-27] MEDS ORDERED: methIMAzole 5 MG TABLET PO SCH (14:00)
--- NOTE | 2017-10-27 14:26 | Discharge Plan ---
Discharge Plan Disposition: Home, Self Care Condition: Good Prescriptions: Walker [Ultra-Light Rollator] 1 each MC DAILY #1 each Diet: Diabetic Activity Restrictions: Activity as Tolerated Shower Restrictions: No Driving Restrictions: No Assistance Devices: Walker Weight Bearing: Full Weight Additional Instructions or Follow Up instructions: You were admitted for low back pain. Physical therapy came to see you and I have ordered a wheeled walker to send you home with. You are also prescribed a short course of muscle relaxers and narcotics to get you through this period. A lumbar spine is pending. A kidney ultrasound is pending. You should consider a pain clinic in the near future and your PCP can make this referral for you. You were found to have an increased white blood cell count and no fever. Since you are diabetic, you are at a higher risk of infection. We have yet to find the source of this infection. A hemoglobin A1C was elevated at 9.9% Please see your PCP within one week. No Smoking: If you smoke, Please STOP! Call for help. Follow-up with: Thanh Guevara MD [Primary Care Provider] -
[2017-10-27] MEDS: METOPROLOL TARTRATE 25 MG TABLET PO SCH ×2 (14:56→22:37)
--- NOTE | 2017-10-27 17:06 | MRI Report ---
Procedure Date: 10/27/2017 Accession Number: [id number] / [id number] Procedure: MRI - Lumbar Spine W/O CPT Code: FULL RESULT: EXAM: MRI LUMBAR SPINE WITHOUT CONTRAST EXAM DATE: 10/27/2017 04:09 PM. CLINICAL HISTORY: Left leg pain, previous herniation L3-4. COMPARISON: None. TECHNIQUE: Multiplanar, multisequence T1-weighted and fluid-sensitive sequences of the lumbar spine from T12 to S1 without contrast. Other: None. FINDINGS: Alignment: No scoliosis or spondylolisthesis. Spinal Canal: The conus terminates at T12-L1. The conus medullaris and cauda equina are unremarkable. Bone Marrow: Five [id number] lumbar vertebral bodies are assumed. No gross fractures or bone lesions. No bone marrow replacement. Disk Levels/Facets: T12-L1: Unremarkable. L1-L2: Mild left paracentral/foraminal protrusion with osteophytes. Mild left L2 nerve root retrodisplacement. No central stenosis. Mild left foraminal stenosis. L2-L3: Mild broad-based left paracentral/foraminal protrusion with osteophytes causing moderate left foraminal stenosis. Associated mild bulge and mild bilateral facet arthropathy. L3-L4: Mild disk bulge and osteophytes. Superimposed 0.4 cm left paracentral/foraminal protrusion. Mild bilateral facet arthropathy. No central stenosis. Moderate left greater than right foraminal stenosis. L4-L5: Mild disk bulge. Mild bilateral facet arthropathy. Moderate bilateral foraminal stenoses. L5-S1: Minimal disk bulge. Mild right facet arthropathy. No stenosis. Musculature: Normal. No edema or fatty atrophy. Other: The partially visualized retroperitoneum is unremarkable. IMPRESSION: 1. Left paracentral/foraminal protrusions at L1-L2, L2-L3 and L3-L4 causing multilevel left foraminal stenoses. 2. Multilevel degenerative disk disease and facet arthropathy. 3. Moderate right-sided L4-L5 foraminal stenosis as well. Comment: The following findings are so common in adults without low back pain that while we report their presence, they must be interpreted with caution and in the context of the clinical situation. (Reference Ginnyk et al, Spine 2001) Prevalence of findings in patients without low back pain: Disk degeneration (any evidence): 92% Disk desiccation/T2 signal loss: 83% Disk height loss: 56% Disk bulge: 64% Disk protrusion: 32% Annular tear/high intensity zone: 38% RADIA
--- NOTE | 2017-10-27 17:57 | PROVIDER PROGRESS NOTE ---
Subjective - Prog Note Date Prog Note Date: 10/27/17 Prog Note Time: 17:56 - Subjective Pt reports feeling: Worse Subjective: Lenny explains that he is just not getting any pain relief and in fact has worse low back pain from lying in bed. He denies any new symptoms such as shortness of breath, chest pain, nausea, vomiting or a new cough. Objective - Vital Signs/Intake & Output Reviewed Vital Signs: Yes Vital Signs: Vital Signs x48h Temp Pulse Pulse Pulse Resp BP BP 10/27/17 16:21 36.5 C 79 16 98/64 10/27/17 12:21 36.8 C 85 16 113/80 10/27/17 10:45 84 80 113/76 BP Pulse Ox 10/27/17 16:21 94 10/27/17 12:21 95 10/27/17 10:45 115/70 Intake & Output: Intake & Output 10/24/17 10/25/17 10/26/17 10/27/17 23:59 23:59 23:59 23:59 Intake Total 320 1300 Output Total 200 2050 Balance 120 -750 - Objective General Appearance: positive: Alert, Moderate distress, Anxious Eyes Bilateral: positive: Normal inspection, PERRL ENT: positive: ENT inspection nml, Pharynx nml, No signs of dehydration Neck: positive: Nml inspection, Thyroid nml, No JVD Respiratory: positive: Chest non-tender, No respiratory distress, Breath sounds nml Cardiovascular: positive: Regular rate & rhythm, No gallop Abdomen: positive: Non-tender, Nml bowel sounds Back: positive: CVA tenderness (R), CVA tenderness (L) Skin: positive: No rash, Warm, Dry Extremities: positive: Non-tender, Full ROM, No pedal edema Neurologic/Psychiatric: positive: Oriented x3, CN's nml (2-12), Motor nml, Sensation nml, Depressed mood/affect - Lab Results Fish Bones: 10/28/17 05:40 10/28/17 05:40 Other Labs: Lab Results x24hrs 10/27/17 10/27/17 10/27/17 Range/Units 16:34 07:46 05:00 WBC (4.8-10.8) x10^3/uL RBC (4.70-6.10) 10^6/uL Hgb (14.0-18.0) g/dL Hct (42.0-52.0) % MCV (80.0-94.0) fL MCH (27.0-31.0) pg MCHC (32.0-36.0) g/dL RDW (12.0-15.0) % Plt Count (130-450) 10^3/uL MPV (7.4-11.4) fL Neut # (Auto) (1.5-6.6) 10^3/uL Lymph # (Auto) (1.5-3.5) 10^3/uL Bremer # (Auto) (0.0-1.0) 10^3/uL Eos # (Auto) (0.0-0.7) 10^3/uL Baso # (Auto) (0.0-0.1) 10^3/uL Absolute Nucleated RBC x10^3/uL Nucleated RBC % /100WBC Sodium (135-145) mmol/L Potassium (3.5-5.0) mmol/L Chloride (101-111) mmol/L Carbon Dioxide (21-32) mmol/L Anion Gap (6-13) BUN (6-20) mg/dL Creatinine (0.6-1.2) mg/dL Estimated GFR (MDRD) (>89) Glucose (70-100) mg/dL POC Whole Bld Glucose 270 H 314 H (70 - 100) mg/dL Glycated Hemoglobin (4.6-6.2) % Estim Average Glucose (70-100) Calcium (8.5-10.3) mg/dL Phosphorus (2.5-4.6) mg/dL Magnesium (1.7-2.8) mg/dL Total Bilirubin (0.2-1.0) mg/dL AST (10-42) IU/L ALT (10-60) IU/L Alkaline Phosphatase (42-121) IU/L Total Protein (6.7-8.2) g/dL Albumin (3.2-5.5) g/dL Globulin (2.1-4.2) g/dL Albumin/Globulin Ratio (1.0-2.2) TSH < 0.08 L (0.34-5.60) uIU/mL Urine Color Urine Clarity (CLEAR) Urine pH (5.0-7.5) PH Ur Specific Ayr (1.002-1.030) Urine Protein (NEGATIVE) mg/dL Urine Glucose (UA) (NEGATIVE) mg/dL Urine Ketones (NEGATIVE) mg/dL Urine Occult Blood (NEGATIVE) Urine Nitrite (NEGATIVE) Urine Bilirubin (NEGATIVE) Urine Urobilinogen (NORMAL) E.U./dL Ur Leukocyte Esterase (NEGATIVE) Ur Microscopic Review Urine Culture Comments 10/27/17 10/27/17 10/27/17 Range/Units 05:00 05:00 05:00 WBC 7.1 (4.8-10.8) x10^3/uL RBC 4.53 L (4.70-6.10) 10^6/uL Hgb 14.2 (14.0-18.0) g/dL Hct 42.7 (42.0-52.0) % MCV 94.3 H (80.0-94.0) fL MCH 31.3 H (27.0-31.0) pg MCHC 33.2 (32.0-36.0) g/dL RDW 12.9 (12.0-15.0) % Plt Count 154 (130-450) 10^3/uL MPV 10.2 (7.4-11.4) fL Neut # (Auto) 6.4 (1.5-6.6) 10^3/uL Lymph # (Auto) 0.5 L (1.5-3.5) 10^3/uL Bremer # (Auto) 0.1 (0.0-1.0) 10^3/uL Eos # (Auto) 0.0 (0.0-0.7) 10^3/uL Baso # (Auto) 0.0 (0.0-0.1) 10^3/uL Absolute Nucleated RBC 0.00 x10^3/uL Nucleated RBC % 0.0 /100WBC Sodium 136 (135-145) mmol/L Potassium 4.1 (3.5-5.0) mmol/L Chloride 104 (101-111) mmol/L Carbon Dioxide 24 (21-32) mmol/L Anion Gap 8.0 (6-13) BUN 20 (6-20) mg/dL Creatinine 0.7 (0.6-1.2) mg/dL Estimated GFR (MDRD) 118 (>89) Glucose 303 H (70-100) mg/dL POC Whole Bld Glucose (70 - 100) mg/dL Glycated Hemoglobin 9.9 H (4.6-6.2) % Estim Average Glucose 237 H (70-100) Calcium 9.1 (8.5-10.3) mg/dL Phosphorus 3.0 (2.5-4.6) mg/dL Magnesium 1.9 (1.7-2.8) mg/dL Total Bilirubin 0.7 (0.2-1.0) mg/dL AST 16 (10-42) IU/L ALT 22 (10-60) IU/L Alkaline Phosphatase 72 (42-121) IU/L Total Protein 6.6 L (6.7-8.2) g/dL Albumin 3.7 (3.2-5.5) g/dL Globulin 2.9 (2.1-4.2) g/dL Albumin/Globulin Ratio 1.3 (1.0-2.2) TSH (0.34-5.60) uIU/mL Urine Color Urine Clarity (CLEAR) Urine pH (5.0-7.5) PH Ur Specific Ayr (1.002-1.030) Urine Protein (NEGATIVE) mg/dL Urine Glucose (UA) (NEGATIVE) mg/dL Urine Ketones (NEGATIVE) mg/dL Urine Occult Blood (NEGATIVE) Urine Nitrite (NEGATIVE) Urine Bilirubin (NEGATIVE) Urine Urobilinogen (NORMAL) E.U./dL Ur Leukocyte Esterase (NEGATIVE) Ur Microscopic Review Urine Culture Comments 10/26/17 10/26/17 Range/Units 22:17 21:25 WBC (4.8-10.8) x10^3/uL RBC (4.70-6.10) 10^6/uL Hgb (14.0-18.0) g/dL Hct (42.0-52.0) % MCV (80.0-94.0) fL MCH (27.0-31.0) pg MCHC (32.0-36.0) g/dL RDW (12.0-15.0) % Plt Count (130-450) 10^3/uL MPV (7.4-11.4) fL Neut # (Auto) (1.5-6.6) 10^3/uL Lymph # (Auto) (1.5-3.5) 10^3/uL Bremer # (Auto) (0.0-1.0) 10^3/uL Eos # (Auto) (0.0-0.7) 10^3/uL Baso # (Auto) (0.0-0.1) 10^3/uL Absolute Nucleated RBC x10^3/uL Nucleated RBC % /100WBC Sodium (135-145) mmol/L Potassium (3.5-5.0) mmol/L Chloride (101-111) mmol/L Carbon Dioxide (21-32) mmol/L Anion Gap (6-13) BUN (6-20) mg/dL Creatinine (0.6-1.2) mg/dL Estimated GFR (MDRD) (>89) Glucose (70-100) mg/dL POC Whole Bld Glucose 293 H (70 - 100) mg/dL Glycated Hemoglobin (4.6-6.2) % Estim Average Glucose (70-100) Calcium (8.5-10.3) mg/dL Phosphorus (2.5-4.6) mg/dL Magnesium (1.7-2.8) mg/dL Total Bilirubin (0.2-1.0) mg/dL AST (10-42) IU/L ALT (10-60) IU/L Alkaline Phosphatase (42-121) IU/L Total Protein (6.7-8.2) g/dL Albumin (3.2-5.5) g/dL Globulin (2.1-4.2) g/dL Albumin/Globulin Ratio (1.0-2.2) TSH (0.34-5.60) uIU/mL Urine Color YELLOW Urine Clarity CLEAR (CLEAR) Urine pH 5.0 (5.0-7.5) PH Ur Specific Ayr >=1.030 H (1.002-1.030) Urine Protein NEGATIVE (NEGATIVE) mg/dL Urine Glucose (UA) 500 H (NEGATIVE) mg/dL Urine Ketones TRACE (NEGATIVE) mg/dL Urine Occult Blood NEGATIVE (NEGATIVE) Urine Nitrite NEGATIVE (NEGATIVE) Urine Bilirubin NEGATIVE (NEGATIVE) Urine Urobilinogen 0.2 (NORMAL) (NORMAL) E.U./dL Ur Leukocyte Esterase NEGATIVE (NEGATIVE) Ur Microscopic Review NOT INDICATED Urine Culture Comments NOT INDICATED - Diagnostic Imaging Diagnostic Imaging Results: positive: Final report reviewed ABX Reporting Has patient been on IV antibiotics over the past 48 hours?: No Assessment/Plan - Problem List (1) Anxiety and depression Impression: Patient is a history of bipolar with anxiety and depression. The patient states that his mood has been stable for over a year now. He is not on any antihypertensive or bipolar medications at home. Plan: Continue to monitor mental state and offer resources if warranted. (2) Insulin dependent type 2 diabetes mellitus, uncontrolled Impression: Patient has history of type 2 diabetes mellitus on insulin. The patient's blood glucose is elevated on presentation at 236. The patient is on home Lantus and NovoLog along with Januvia. A hemoglobin A1 C was elevated at 9.9%. Plan: Continue to hold Januvia, substitute with Lantus, continue SSI. (3) Intractable low back pain Impression: Patient presents with intractable back pain. The patient was prescribed IV Dilaudid, Toradol and steroids in the emergency department, which continued on the nursing floor. The patient still claims to have uncontrolled pain. Since his pain is not considered to be controlled, he will stay one more night. I have ordered a lumbar spine MRI that will be done in the AM. Plan: Continue prednisone, ibuprofen, gabapentin, Flexeril, Tylenol, oxycodone and Dilaudid as needed for pain. Await MRI lumbar spine. (4) Left leg weakness Impression: The patient appears to have lumbosacral radiculopathy likely secondary to injury of his lower back. In order to rule out cord compression we will get an MRI of the patient's lumbosacral spine. We will continue to treat the patient' s likely spinal strain/injury as stated above which will hopefully improve the patient's weakness. Plan: Await MRI lumbar spine results. (5) Hypertension Impression: Blood pressure is well controlled despite ongoing pain. We will continue the patient's home dose of lisinopril and continue to monitor his blood pressure while he is hospitalized. Plan: Continue to monitor VS. Qualifiers: Hypertension type: essential hypertension Qualified Code(s): I10 - Essential (primary) hypertension
--- NOTE | 2017-10-27 20:01 | Ultrasound Report ---
Procedure Date: 10/27/2017 Accession Number: [id number] / [id number] Procedure: US - Retroperitoneal CPT Code: FULL RESULT: EXAM: RENAL ULTRASOUND EXAM DATE: 10/27/2017 06:58 PM. CLINICAL HISTORY: Kidney stones, painful urination. COMPARISON: None. TECHNIQUE: Real-time scanning was performed with static images obtained. FINDINGS: Right Kidney: 12.5 x 6.5 x 7.0 cm. Normal echotexture with no stones, contour-deforming masses, or hydronephrosis. Left Kidney: 12.4 x 8.5 x 5.1 cm. Normal echotexture with no stones, contour-deforming masses, or hydronephrosis. Bladder: Bilateral jets seen. The prevoid bladder volume was 140 cc. The postvoid bladder volume was 12 cc. IMPRESSION: Negative renal ultrasound. RADIA
[2017-10-27] MEDS: ATORVASTATIN 10 MG TABLET PO SCH (22:02)
[2017-10-27] MEDS: INSULIN GLARGINE 300 UNIT/3 ML PEN SUBQ SCH (22:08)
[2017-10-28 06:05] LABS: BASOPHILS # (AUTO) 0.1 10^3/uL (0.0-0.1); BASOPHILS % (AUTO) 0.9 %; EOSINOPHILS # (AUTO) 0.1 10^3/uL (0.0-0.7); EOSINOPHILS % (AUTO) 0.9 %; HGB - HEMOGLOBIN 13.4 g/dL (14.0-18.0); LYMPHOCYTES # (AUTO) 2.1 10^3/uL (1.5-3.5); LYMPHOCYTES % (AUTO) 22.7 %; MEAN CORPUSCULAR HEMOGLOBIN 31.4 pg (27.0-31.0); MEAN CORPUSCULAR HGB CONC 33.4 g/dL (32.0-36.0); MONOCYTES # (AUTO) 0.8 10^3/uL (0.0-1.0); MONOCYTES % (AUTO) 9.2 %; NEUTROPHILS % (AUTO) 66.3 %; PLT - PLATELET COUNT 151 10^3/uL (130-450); RED BLOOD COUNT 4.26 10^6/uL (4.70-6.10); WHITE BLOOD COUNT 9.1 x10^3/uL (4.8-10.8)
[2017-10-28 06:18] LABS: ALBUMIN 3.3 g/dL (3.2-5.5); ALBUMIN/GLOBULIN RATIO 1.3 (1.0-2.2); BILIRUBIN,TOTAL 0.8 mg/dL (0.2-1.0); CALCIUM 8.4 mg/dL (8.5-10.3); CREATININE 0.8 mg/dL (0.6-1.2); TOTAL PROTEIN 5.9 g/dL (6.7-8.2)
[2017-10-28] MEDS ORDERED: INSULIN ASPART 300 UNIT/3 ML PEN SUBQ SCH (08:00)
[2017-10-28] MEDS: FAMOTIDINE 20 MG TABLET PO SCH (08:21)
[2017-10-28] MEDS: methIMAzole 5 MG TABLET PO SCH (08:21)
[2017-10-28] MEDS: ASPIRIN EC 81 MG TABLET PO SCH (08:21)
[2017-10-28] MEDS: GABAPENTIN 300 MG CAPSULE PO SCH (08:21)
[2017-10-28] MEDS: predniSONE 20 MG TABLET PO SCH (08:21)
[2017-10-28] MEDS: METOPROLOL TARTRATE 25 MG TABLET PO SCH (08:22)
[2017-10-28] MEDS: LISINOPRIL 5 MG TABLET PO SCH (08:22)
[2017-10-28] MEDS: oxyCODONE 5 MG TABLET PO PRN (08:22)
[2017-10-28] MEDS: SODIUM CHLORIDE FLUSH 0.9% 10 ML SYRINGE IVP SCH (08:23)
[2017-10-28 08:25] VITALS: BP 103/78
[2017-10-28] MEDS: INSULIN ASPART 300 UNIT/3 ML PEN SUBQ SCH (08:26)
[2017-10-28] MEDS: ENOXAPARIN 40 MG/0.4 ML SYRINGE SUBQ SCH (08:29)
[2017-10-28] MEDS: POLYETHYLENE GLYCOL 3350 17 GM PACKET PO SCH (08:29)
[2017-10-28] MEDS ORDERED: DOCUSATE SODIUM 250 MG CAPSULE PO SCH (09:00)
[2017-10-28] MEDS ORDERED: SENNA 8.6 MG TABLET PO SCH (09:00)
[2017-10-28] MEDS: CYCLOBENZAPRINE 10 MG TABLET PO PRN (10:25)
--- NOTE | 2017-10-28 10:58 | Discharge Plan ---
Discharge Plan Disposition: Home, Self Care Condition: Poor Prescriptions: Cyclobenzaprine [Flexeril] 10 mg PO TID PRN #15 tablet PRN Reason: Muscle Spasm oxyCODONE [Roxicodone] 10 mg PO Q6H PRN #30 tablet PRN Reason: Pain Walker [Ultra-Light Rollator] 1 each MC DAILY #1 each Diet: Regular Activity Restrictions: Activity as Tolerated Shower Restrictions: No (fall precaution) Instruction Topics: ED Back Care Tips, Cyclobenzaprine tablets, Oxycodone tablets or capsules Additional Instructions or Follow Up instructions: You were admitted for low back pain. Physical therapy came to see you and wheeled walker is ordered to send you home with. You are also prescribed a short course of muscle relaxers and narcotics to get you through this period. I discussed all image studies with you. You may consider a pain clinic in the near future and your PCP can make this referral for you, you may continue your orthopedics appointment and continue to be monitored. Please see your PCP within one week. No Smoking: If you smoke, Please STOP! Call for help. Follow-up with: Thanh Guevara MD [Primary Care Provider] -
--- NOTE | 2017-10-28 11:21 | DISCHARGE SUMMARY ---
Discharge Summary Discharge Date: 10/28/17 Discharging Provider: SNIDER Primary Care Provider: Dr. Guevara Condition at Discharge: Poor Discharge Disposition: 01 Home, Self Care Discharge Facility Name: home - DIAGNOSES Admission Diagnoses: (1) Intractable low back pain (2) Left leg weakness (3) Insulin dependent type 2 diabetes mellitus, uncontrolled (4) Anxiety and depression (5) Hypertension (6) Hyperlipidemia Discharge Diagnoses with Status of Each Condition: (1) Intractable low back pain pt report his back pain is controlled now, and he is ready to be d/c to home. Pt is prescribed Oxycodon and Flexeril PRN, and Walker. pt is advised to follow up PCP for pain management, and follow up his orthopedics appointment. (2) Left leg weakness pt denies left leg weakness now. pt report has normal sensation and motor on his left low extremity. pt also report he had normal urination and bowel movement. pt was evaluated and treated by PT/OT, and recommended D/C to home. pt is prescribed to have walker to home (3) Insulin dependent type 2 diabetes mellitus, uncontrolled pt's A1C is 9.9. pt is advised to have better blood glucose control, follow up PCP (4) Anxiety and depression stable (5) Hypertension stable (6) Hyperlipidemia stable - HPI History of Present Illness: refer from Dr. Yeh's HPI for pt as the following: Patient is a 52-year-old gentleman with a past medical history significant for hypertension, type 2 diabetes mellitus on insulin, hypothyroidism and bipolar who presents to the emergency department with a chief complaint of back pain. 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 He states that around noon he began feeling pain in his lower back which was radiating around his abdomen and into the front of his pelvic/lower abdominal area. The patient states that he continued to try to carry around materials however he states that he felt his legs giving out on him. He states that initially he did not make much of it however as he continued to work he felt as though his legs were like Jell-O. He states at this point he took a gabapentin and rested for about 15 minutes. He states that he is tried to start back up with the work but again felt like his legs were Jell-O and eventually his legs gave out on him. He states that there was another coworker right beside him who was able to catch him and lower him to the floor. The patient states that he continued to have low back pain that was excruciating in 10 out of 10. They continue to radiate around into the front of his lower abdomen/pelvis. He states that his lower back pain got worse over the course of a couple of hours and peaked at the point when he was on the floor. He states the pain at the worst was 10 out of 10. He states that he could not get up from the floor and came into the emergency department by ambulance. The patient states he is had issues with neck pain in the past and has had a cervical fusion. He states however he has never had any issues with lower back pain. The patient denies any fevers or chills. He denies any urinary or fecal incontinence. The patient does admit to having burning with urination and feeling the urge to go but not being able to urinate. The patient denies any other focal neurologic deficits. He states that his left leg is weaker than his right leg. But he is scared to try to get up as he feels like he will again fall to the floor because his legs feel like Jell-O. He states that the back pain does radiate down his legs when he tries to lift them up. The patient states that before this he was doing very well and has felt great for months. Patient denies any headaches, blurred vision, runny nose, sore throat, nasal congestion, difficulty swallowing, chest pain, fevers, chills, cough, shortness of breath, orthopnea, PND, increased lower extremity swelling, joint pain, joint swelling, abdominal distention, abdominal pain, nausea, vomiting, diarrhea , constipation, neck stiffness, recent unintentional weight loss, changes in his appetite, skin changes, hair loss, polyuria, polydipsia. On presentation to the emergency department the patient was afebrile and vital signs were all within normal limits. The patient appear to be in significant distress due to his severe lower back pain which was bandlike and radiated to the front. The emergency room physician was concerned and ordered routine lab work which was all within normal limits aside from an elevated glucose of 236. The patient's urine analysis was negative. The patient then underwent imaging with a CT of his abdomen pelvis given that he stated the pain was radiating around to the lower abdomen. The CT of his abdomen pelvis was completely normal. The patient on examination was found to have bilateral lower extremity weakness however his left lower extremity was significantly weaker than the right lower extremity. The patient also had decreased sensations in bilateral lower extremities and decreased reflexes in bilateral lower extremities. While the patient was in the emergency department he began feeling as though he had numbness and tingling in his left foot and felt as though his leg was cold therefore the emergency room physician ordered an arterial Doppler ultrasound of the left lower extremity which was completely normal. The patient was given several doses of IV Dilaudid, Decadron, Tylenol, Toradol, Ativan and IV fluid while in the emergency department. None of this seemed to improve the patient' s symptoms. Given the patient's intractable back pain he was placed in observation. - ALLERGIES Allergies/Adverse Reactions: Allergies Allergy/AdvReac Type Severity Reaction Status Date / Time cinnamon Allergy Unknown Verified 03/19/17 20:34 pregabalin [From Lyrica] Allergy Unknown Verified 10/30/16 02:05 - MEDICATIONS Home Medications: Ambulatory Orders Medication Instructions Recorded Confirmed Gabapentin 300 mg PO QID 08/18/16 10/27/17 Lisinopril 5 mg PO DAILY 08/18/16 10/27/17 SITagliptin [Januvia] 100 mg PO DAILY 09/22/16 10/27/17 Aspirin [Aspirin EC] 81 mg PO DAILY 12/30/16 10/27/17 Insulin Glargine,Hum.rec.anlog 25 unit SUBQ QPM 10/27/17 10/27/17 [Basaglar Kwikpen U-100] Insulin Glulisine [Apidra Solostar] 1 - 10 units SUBQ .SLIDINGSCALE 10/27/17 Metoprolol Tartrate 25 mg PO BID 10/27/17 10/27/17 Walker [Ultra-Light Rollator] 1 each MC DAILY #1 each 10/27/17 methIMAzole [Tapazole] 5 mg PO BID 10/27/17 10/27/17 Cyclobenzaprine [Flexeril] 10 mg PO TID PRN #15 tablet 10/28/17 oxyCODONE [Roxicodone] 10 mg PO Q6H PRN #30 tablet 10/28/17 - PHYSICAL EXAM AT DISCHARGE General Appearance: positive: No acute distress, Alert. negative: Lethargic Eyes Bilateral: positive: Normal inspection, PERRL, No lid inflammation, Conjunctivae nml ENT: positive: ENT inspection nml, Pharynx nml, No signs of dehydration. negative: Purulent nasal drainage, Pharyngeal erythema, Oral lesions Neck: positive: Nml inspection, Thyroid nml, No JVD, Trachea midline. negative : Thyromegaly, Lymphadenopathy (R), Lymphadenopathy (L), Stiff neck, Carotid bruit, Swelling/bruising, Tracheal deviation Respiratory: positive: Chest non-tender, No respiratory distress, Breath sounds nml. negative: Wheezes, Rales, Rhonchi Cardiovascular: positive: Regular rate & rhythm, No murmur, No gallop. negative : Irregularly irregular, Extrasystoles, Tachycardia, Bradycardia, JVD present, Systolic murmur, Diastolic murmur Peripheral Pulses: positive: 2+ Abdomen: positive: Non-tender, No organomegaly, Nml bowel sounds, No distention. negative: Tenderness, Guarding, Rebound Back: positive: Nml inspection. negative: CVA tenderness (R), CVA tenderness (L ) Skin: positive: Color nml, No rash, Warm, Dry. negative: Cyanosis, Diaphoresis , Pallor Extremities: positive: Non-tender, Full ROM, Nml appearance. negative: Calf tenderness, Joint swelling, Abelardo's sign/cords Neurologic/Psychiatric: positive: Oriented x3, Motor nml, Sensation nml, Mood/ affect nml. negative: Weakness, Sensory loss, Facial droop, Slurred/abnml speech, Depressed mood/affect - LABS Result Diagrams: 10/28/17 05:40 10/28/17 05:40 - FOLLOW UP Follow Up: You were admitted for low back pain. Physical therapy came to see you and wheeled walker is ordered to send you home with. You are also prescribed a short course of muscle relaxers and narcotics to get you through this period. I discussed all image studies with you. You may consider a pain clinic in the near future and your PCP can make this referral for you, you may continue your orthopedics appointment and continue to be monitored. Please see your PCP within one week. - TIME SPENT Time Spent in Discharge (Minutes): 50
== END 2017-10-28 12:03 | disposition home or self-care (01) ==
LOC: EDBD → EDUNIT# → ED 14:03 → MS2 20:31
PROVIDERS: ADMIT Internal Medicine; ATTEND Nurse Practitioner Gerontology
DX: M51.16 Intervertebral disc disorders with radiculopathy, lumbar region (principal); M48.061 Spinal stenosis, lumbar region without neurogenic claudication; M46.96 Unspecified inflammatory spondylopathy, lumbar region; M62.830 Muscle spasm of back; R10.814 Left lower quadrant abdominal tenderness; R10.9 Unspecified abdominal pain; M79.652 Pain in left thigh; M79.662 Pain in left lower leg; X50.3XXA Overexertion from repetitive movements, initial encounter; Y92.89 Other specified places as the place of occurrence of the external cause; Y99.2 Volunteer activity; G89.29 Other chronic pain; E11.65 Type 2 diabetes mellitus with hyperglycemia; I10 Essential (primary) hypertension; E78.5 Hyperlipidemia, unspecified; E03.9 Hypothyroidism, unspecified; F31.9 Bipolar disorder, unspecified; F41.9 Anxiety disorder, unspecified; Z87.442 Personal history of urinary calculi; Z79.4 Long term (current) use of insulin; Z98.2 Presence of cerebrospinal fluid drainage device; Z79.899 Other long term (current) drug therapy; Z98.1 Arthrodesis status; Z87.891 Personal history of nicotine dependence
CPT/HCPCS: 36415; 72148; 74177; 76770; 80053; 81003; 82550; 83036; 83690; 83735; 84100; 84439; 84443; 84480; 84481; 85025; 85651; 93926; 96374; 96375; 96376; 97116; 97161; 99283; 99284; A9270; G0378; G8978; G8979; J1170; J1650; J1815; J2060; J7512; Q9967; 81001; 87086

== ENCOUNTER 2017-11-02 02:50 | Outpatient (CLI) | payer MEDICAID | END 2017-11-02 02:51 | disposition critical access hospital (66) | LOC: EMS 02:50 | PROVIDERS: ATTEND Surgery | DX: M54.9 Dorsalgia, unspecified (principal); R20.9 Unspecified disturbances of skin sensation; R32 Unspecified urinary incontinence | CPT/HCPCS: A0425; A0427; A0999 ==

== ENCOUNTER 2017-11-02 03:08 | Emergency (ER) | payer MEDICAID ==
--- NOTE | 2017-11-02 03:36 | ED Physician Documentation ---
PD HPI BACK PAIN - Stated complaint Stated Complaint: BACK PAIN - Chief complaint Chief Complaint: Back Pain - History obtained from History obtained from: Patient, EMS - History of Present Illness Timing - onset: How many weeks ago (1) Timing - details: Abrupt onset, Constant, Waxing and waning Pain level max: 10 Pain level now: 10 Location: Lower Quality: Pain, Spasm Associated symptoms: Numbness, Incontinent of urine. No: Fever, Weakness, Incontinent of stool Improves with: Rest Worsened by: Movement Similar symptoms before: Work up / diagnostics (see below) Recently seen: Emergency Dept, Admitted - Additional information Additional information: inpatient 10/26-10/28 for same symptoms, tests included CT A/P, arterial lower extremity US, retroperitoneal US, MRI lumbar spine. none of the findings provided a convincing etiology for his symptoms. he was discharged after pain was controlled. He followed up with his orthopedic surgeon (I am able to review these notes via [facility]); the notes reflect that the orthopedic surgeon was unable to obtain the MRI images and/or radiologists report, and thus, concerned for acute spinal compression pathology, he recommended patient go to either [place] or [place] ED to seek out neurosurgical evaluation. Patient went to [facility]. ED note (obtained via fax request, reviewed by me) reflects MRI C-T-L-S spine was performed and no findings that would account for patients symptoms (back pain, urinary incontinence, numbness) . Dr. Cantrell, neurosurgery, was consulted in the case. patient was discharged from ED. Patient says he went home, took an oxycodone, fell asleep on couch (which medics describe as being so saggy that it looked like he was lying in a hammock) , and awoke due to severe LBP. continues to have numbness top of left foot, milder on right, and episodes of urinary incontinence. BIBA Review of Systems Constitutional: reports: Reviewed and negative Cardiac: reports: Reviewed and negative Respiratory: reports: Reviewed and negative GI: reports: Reviewed and negative : reports: Incontinent. denies: Dysuria, Frequency Skin: denies: Rash Musculoskeletal: reports: Back pain. denies: Neck pain Neurologic: reports: Numbness (tops of feet, L>R). denies: Generalized weakness , Focal weakness, Headache, Head injury, LOC PD PAST MEDICAL HISTORY - Past Medical History Past Medical History: Yes Cardiovascular: Hypertension, High cholesterol Respiratory: None Endocrine/Autoimmune: Type 2 diabetes, HyPOthyroidism GI: None : Kidney stones Psych: Depression, Bipolar disorder Musculoskeletal: Chronic back pain Derm: Other - Past Surgical History Past Surgical History: Yes General: Appendectomy - Present Medications Home Medications: Ambulatory Orders Medication Instructions Recorded Confirmed Gabapentin 300 mg PO QID 08/18/16 10/27/17 Lisinopril 5 mg PO DAILY 08/18/16 10/27/17 SITagliptin [Januvia] 100 mg PO DAILY 09/22/16 10/27/17 Aspirin [Aspirin EC] 81 mg PO DAILY 12/30/16 10/27/17 Insulin Glargine,Hum.rec.anlog 25 unit SUBQ QPM 10/27/17 10/27/17 [Basaglar Kwikpen U-100] Insulin Glulisine [Apidra Solostar] 1 - 10 units SUBQ .SLIDINGSCALE 10/27/17 Metoprolol Tartrate 25 mg PO BID 10/27/17 10/27/17 Walker [Ultra-Light Rollator] 1 each MC DAILY #1 each 10/27/17 methIMAzole [Tapazole] 5 mg PO BID 10/27/17 10/27/17 Cyclobenzaprine [Flexeril] 10 mg PO TID PRN #15 tablet 10/28/17 oxyCODONE [Roxicodone] 10 mg PO Q6H PRN #30 tablet 10/28/17 - Allergies Allergies/Adverse Reactions: Allergies Allergy/AdvReac Type Severity Reaction Status Date / Time cinnamon Allergy Unknown Verified 11/02/17 03:19 pregabalin [From Lyrica] Allergy Unknown Verified 11/02/17 03:19 - Social History Does the pt smoke?: No Smoking Status: Never smoker Does the pt drink ETOH?: No Does the pt have substance abuse?: Yes - Immunizations Immunizations are current?: Yes - POLST Patient has POLST: No POLST Status: Full Code PD ED PE NORMAL - Vitals Vital signs reviewed: Yes - General General: Alert and oriented X 3, No acute distress, Well developed/nourished - HEENT HEENT: PERRL, EOMI - Cardiac Cardiac: RRR, No murmur - Respiratory Respiratory: No respiratory distress, Clear bilaterally - Abdomen Abdomen: Soft, Non tender - Back Back: No spinal TTP - Derm Derm: Normal color, Warm and dry, No rash - Extremities Extremities: No edema - Neuro Neuro: Alert and oriented X 3, manufacturing operator 2-12 intact, No motor deficit, Normal speech , Other (subjective decreased LTS BLE without sharp margin of cutoff; decreased LTS limited to dorsal surfaces of both feet. 2+/4 DTR bilateral patellae and ankle jerk. 5/5 strength dorsi/plantar flexion, 5/5 bilateral iliopsoas (flexion ) and quad (straightening at knee). 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 Results - Vitals Vitals: Oxygen O2 Source Room air - Labs Labs: Laboratory Tests 11/02/17 11/02/17 04:40 04:40 WBC 7.8 RBC 4.89 Hgb 15.2 Hct 45.9 MCV 93.9 MCH 31.1 H MCHC 33.1 RDW 12.5 Plt Count 165 MPV 9.6 Neut # (Auto) 5.0 Lymph # (Auto) 1.7 [place] # (Auto) 0.9 Eos # (Auto) 0.1 Baso # (Auto) 0.0 Absolute Nucleated RBC 0.00 Nucleated RBC % 0.0 Sodium 134 L Potassium 3.9 Chloride 101 Carbon Dioxide 25 Anion Gap 8.0 BUN 16 Creatinine 0.8 Estimated GFR (MDRD) 101 Glucose 230 H Calcium 8.5 PD MEDICAL DECISION MAKING - ED course Complexity details: reviewed old records, reviewed results, re-evaluated patient , considered differential, d/w patient ED course: given fentanyl, toradol, decadron, ativan with modest improvement. patient continued to insist something is really, really wrong with me despite reassuring MRI results from just yesterday. he was moving his legs, was able to roll over on side without assistance. he c/o severe pain when trying to sit up. given IV ketamine, although dosing stopped fci because of strong response. on reevaluation, he was drowsy but conversant and answers intelligibly and appropriately. he reports pain is greatly improved. He was then discharged with instruction to f/u with PMD as soon as possible. - Sepsis Event Vital Signs: Oxygen O2 Source Room air Departure - Departure Disposition: 01 Home, Self Care Clinical Impression: Back pain Qualifiers: Back pain location: low back pain Chronicity: acute Back pain laterality: bilateral Sciatica presence: with sciatica Sciatica laterality: bilateral sciatica Qualified Code(s): M54.42 - Lumbago with sciatica, left side Condition: Good Instructions: ED Neck Back Pain General, ED Sciatica Follow-Up: Thanh Guevara MD [Primary Care Provider] - (Call this morning to arrange for next available appointment) Discharge Date/Time: 11/02/17 08:08
[2017-11-02] MEDS ORDERED: fentaNYL 100 MCG/2 ML VIAL IVP STA (04:11)
[2017-11-02 04:47] LABS: BASOPHILS % (AUTO) 0.5 %; EOSINOPHILS # (AUTO) 0.1 10^3/uL (0.0-0.7); EOSINOPHILS % (AUTO) 1.3 %; HGB - HEMOGLOBIN 15.2 g/dL (14.0-18.0); LYMPHOCYTES # (AUTO) 1.7 10^3/uL (1.5-3.5); MEAN CORPUSCULAR HEMOGLOBIN 31.1 pg (27.0-31.0); MEAN CORPUSCULAR HGB CONC 33.1 g/dL (32.0-36.0); MEAN CORPUSCULAR VOLUME 93.9 fL (80.0-94.0); MEAN PLATELET VOLUME 9.6 fL (7.4-11.4); MONOCYTES # (AUTO) 0.9 10^3/uL (0.0-1.0); MONOCYTES % (AUTO) 12.1 %; NEUTROPHILS % (AUTO) 64.1 %; PLT - PLATELET COUNT 165 10^3/uL (130-450); RED BLOOD COUNT 4.89 10^6/uL (4.70-6.10); RED CELL DISTRIBUTION WIDTH 12.5 % (12.0-15.0); WHITE BLOOD COUNT 7.8 x10^3/uL (4.8-10.8)
[2017-11-02 04:53] LABS: CALCIUM 8.5 mg/dL (8.5-10.3); CREATININE 0.8 mg/dL (0.6-1.2)
[2017-11-02] MEDS ORDERED: DEXAMETHASONE 10 MG/ML VIAL IVP STA (05:42)
[2017-11-02] MEDS ORDERED: LORazepam 2 MG/ML VIAL IVP STA (05:42)
[2017-11-02] MEDS ORDERED: KETOROLAC 60 MG/2 ML VIAL IVP STA (05:42)
[2017-11-02] MEDS ORDERED: KETAMINE 500 MG/10 ML VIAL IVP ONE (05:59)
[2017-11-02 08:10] VITALS: BP 114/72
== END 2017-11-02 08:08 | disposition home or self-care (01) ==
LOC: EDUNIT# → SUPCPDRO 03:08 → ED 03:08
DX: M54.42 Lumbago with sciatica, left side (principal); I10 Essential (primary) hypertension; E11.9 Type 2 diabetes mellitus without complications; Z79.82 Long term (current) use of aspirin; Z79.4 Long term (current) use of insulin
CPT/HCPCS: 36415; 80048; 85025; 96374; 96375; 99283; 99284

== ENCOUNTER 2017-11-04 11:44 | Outpatient (CLI) | payer MEDICAID ==
[2017-11-04 19:38] LABS: CALCIUM 8.6 mg/dL (8.5-10.3); CREATININE 0.8 mg/dL (0.6-1.2)
[2017-11-04 19:53] LABS: THYROID STIMULATING HORMONE < 0.08 uIU/mL (0.34-5.60)
[2017-11-04 19:55] LABS: FREE T4 (FREE THYROXINE) 0.94 ng/dL (0.58-1.64)
[2017-11-04 20:03] LABS: HB2 TOTAL 15.5 g/dL; HEMOGLOBIN A1C 1.3 g/dL; HEMOGLOBIN A1C % 9.8 % (4.6-6.2)
== END 2017-11-04 11:45 | disposition home or self-care (01) ==
LOC: LAB.N 11:44
PROVIDERS: ATTEND Family Medicine
DX: E11.65 Type 2 diabetes mellitus with hyperglycemia (principal); E05.90 Thyrotoxicosis, unspecified without thyrotoxic crisis or storm
CPT/HCPCS: 36415; 80048; 83036; 84439; 84443; 84481

== ENCOUNTER 2017-11-18 01:11 | Outpatient (CLI) | payer MEDICAID | END 2017-11-18 01:12 | disposition critical access hospital (66) | LOC: EMS 01:11 | PROVIDERS: ATTEND Surgery | DX: R07.9 Chest pain, unspecified (principal); R06.00 Dyspnea, unspecified | CPT/HCPCS: A0425; A0427; A0999 ==

== ENCOUNTER 2017-11-18 01:31 | Emergency (ER) | payer MEDICAID ==
[2017-11-18 01:59] LABS: BASOPHILS # (AUTO) 0.1 10^3/uL (0.0-0.1); BASOPHILS % (AUTO) 0.9 %; EOSINOPHILS # (AUTO) 0.1 10^3/uL (0.0-0.7); EOSINOPHILS % (AUTO) 1.3 %; HGB - HEMOGLOBIN 14.9 g/dL (14.0-18.0); LYMPHOCYTES # (AUTO) 1.7 10^3/uL (1.5-3.5); LYMPHOCYTES % (AUTO) 20.1 %; MEAN CORPUSCULAR HEMOGLOBIN 31.6 pg (27.0-31.0); MEAN CORPUSCULAR HGB CONC 34.5 g/dL (32.0-36.0); MEAN CORPUSCULAR VOLUME 91.4 fL (80.0-94.0); MEAN PLATELET VOLUME 9.5 fL (7.4-11.4); MONOCYTES # (AUTO) 0.9 10^3/uL (0.0-1.0); MONOCYTES % (AUTO) 10.3 %; NEUTROPHILS # (AUTO) 5.8 10^3/uL (1.5-6.6); NEUTROPHILS % (AUTO) 67.4 %; PLT - PLATELET COUNT 184 10^3/uL (130-450); RED BLOOD COUNT 4.72 10^6/uL (4.70-6.10); WHITE BLOOD COUNT 8.5 x10^3/uL (4.8-10.8)
[2017-11-18 02:09] LABS: ALBUMIN 4.2 g/dL (3.2-5.5); ALBUMIN/GLOBULIN RATIO 1.4 (1.0-2.2); BILIRUBIN,TOTAL 0.2 mg/dL (0.2-1.0); CALCIUM 9.3 mg/dL (8.5-10.3); CREATININE 0.7 mg/dL (0.6-1.2); TOTAL PROTEIN 7.2 g/dL (6.7-8.2)
--- NOTE | 2017-11-18 02:20 | XRAY Report ---
Procedure Date: 11/18/2017 Accession Number: [id number] / [id number] Procedure: XR - Chest 2 View X-Ray CPT Code: 80613 FULL RESULT: EXAM: CHEST RADIOGRAPHY EXAM DATE: 11/18/2017 02:10 AM. CLINICAL HISTORY: Chest pain. COMPARISON: CHEST 2 VIEW 08/25/2017. TECHNIQUE: 2 views. FINDINGS: Lungs/Pleura: Lung volumes are low, producing crowding of the pulmonary vasculature. No focal consolidation, effusion, or pneumothorax. Mediastinum: Heart and mediastinal contours are unremarkable. Other: None. IMPRESSION: Low lung volumes. No evidence of acute cardiopulmonary disease. RADIA
--- NOTE | 2017-11-18 03:13 | ED Physician Documentation ---
PD HPI CHEST PAIN - Stated complaint Stated Complaint: CP - Chief complaint Chief Complaint: Cardiac - History obtained from History obtained from: Patient - History of Present Illness Timing - onset: Enter time (00:00 (midnight)), Today Timing - onset during: Rest Timing - details: Abrupt onset Quality: Pain Location: Substernal Radiation: Left upper extremity Improved by: Nitro (slntg x 2) Worsened by: Inspiration Associated symptoms: Shortness of air. No: Diaphoresis, Nausea, Vomiting, Feeling faint / dizzy, General Weakness, Palpitations, Cough Similar symptoms before: Has not had sx before Recently seen: Emergency Dept (I evaluated this patient 11/02/17 for back pain in this ED. he went to ED later on same day. he returned to ED a week later, and was seen in [place] ED 3 days ago for back pain (notes faxed from [place] indicate he was also seen outpatient by neurosurgery same day as [facility]. ED visit). w/u 3 days ago in [facility] ED included CT A/P. until tonight, previous ED visits were for back pain and not chest pain) Review of Systems Constitutional: reports: Reviewed and negative Cardiac: reports: Chest pain / pressure. denies: Palpitations, Pedal edema, Calf pain Respiratory: reports: Dyspnea. denies: Cough, Hemoptysis, Wheezing GI: reports: Reviewed and negative Musculoskeletal: reports: Back pain (chronic) Neurologic: reports: Reviewed and negative PD PAST MEDICAL HISTORY - Past Medical History Cardiovascular: Hypertension, High cholesterol Respiratory: None Endocrine/Autoimmune: Type 2 diabetes, HyPOthyroidism GI: None : Kidney stones Psych: Depression, Bipolar disorder Musculoskeletal: Chronic back pain Derm: Other - Past Surgical History Past Surgical History: Yes General: Appendectomy - Present Medications Home Medications: Ambulatory Orders Medication Instructions Recorded Confirmed Gabapentin 300 mg PO QID 08/18/16 10/27/17 Lisinopril 5 mg PO DAILY 08/18/16 10/27/17 SITagliptin [Januvia] 100 mg PO DAILY 09/22/16 10/27/17 Aspirin [Aspirin EC] 81 mg PO DAILY 12/30/16 10/27/17 Insulin Glargine,Hum.rec.anlog 25 unit SUBQ QPM 10/27/17 10/27/17 [Basaglsima Ramos U-100] Insulin Glulisine [Apidra Solostar] 1 - 10 units SUBQ .SLIDINGSCALE 10/27/17 Metoprolol Tartrate 25 mg PO BID 10/27/17 10/27/17 Walker [Ultra-Light Rollator] 1 each MC DAILY #1 each 10/27/17 methIMAzole [Tapazole] 5 mg PO BID 10/27/17 10/27/17 Cyclobenzaprine [Flexeril] 10 mg PO TID PRN #15 tablet 10/28/17 oxyCODONE [Roxicodone] 10 mg PO Q6H PRN #30 tablet 10/28/17 - Allergies Allergies/Adverse Reactions: Allergies Allergy/AdvReac Type Severity Reaction Status Date / Time cinnamon Allergy Unknown Verified 11/02/17 03:19 pregabalin [From Lyrica] Allergy Unknown Verified 11/02/17 03:19 - Social History Does the pt smoke?: No Smoking Status: Never smoker Does the pt drink ETOH?: No Does the pt have substance abuse?: Yes - Immunizations Immunizations are current?: Yes - POLST Patient has POLST: No POLST Status: Full Code PD ED PE NORMAL - Vitals Vital signs reviewed: Yes - General General: Alert and oriented X 3, Well developed/nourished, Other (poor eye contact (keeps eyes closed for much of H+P); appears anxious) - HEENT HEENT: Moist mucous membranes - Cardiac Cardiac: No murmur, No gallop, No rub - Respiratory Respiratory: No respiratory distress, Clear bilaterally - Abdomen Abdomen: Soft, Non tender - Derm Derm: Normal color, Warm and dry - Extremities Extremities: No edema - Neuro Neuro: Alert and oriented X 3 PD ED PE EXPANDED - Cardiac Cardiac: Tachy, Regular Rhythm Results - Vitals Vitals: Oxygen O2 Source Nasal cannula - EKG (time done) No standard instances Rate: Rate (enter#) (134), Tachy Rhythm: NSR Pana: LAD Intervals: Normal ND QRS: Normal Ischemia: Normal ST segments - Labs Labs: Laboratory Tests 11/18/17 11/18/17 11/18/17 01:50 01:50 01:50 WBC 8.5 RBC 4.72 Hgb 14.9 Hct 43.1 MCV 91.4 MCH 31.6 H MCHC 34.5 RDW 13.0 Plt Count 184 MPV 9.5 Neut # (Auto) 5.8 Lymph # (Auto) 1.7 [place] # (Auto) 0.9 Eos # (Auto) 0.1 Baso # (Auto) 0.1 Absolute Nucleated RBC 0.00 Nucleated RBC % 0.0 D-Dimer Sodium 137 Potassium 3.9 Chloride 103 Carbon Dioxide 23 Anion Gap 11.0 BUN 15 Creatinine 0.7 Estimated GFR (MDRD) 118 Glucose 361 H Calcium 9.3 Total Bilirubin 0.2 AST 21 ALT 21 Alkaline Phosphatase 78 Troponin I < 0.04 Total Protein 7.2 Albumin 4.2 Globulin 3.0 Albumin/Globulin Ratio 1.4 Lipase 27 11/18/17 01:50 WBC RBC Hgb Hct MCV MCH MCHC RDW Plt Count MPV Neut # (Auto) Lymph # (Auto) [place] # (Auto) Eos # (Auto) Baso # (Auto) Absolute Nucleated RBC Nucleated RBC % D-Dimer 251.8 Sodium Potassium Chloride Carbon Dioxide Anion Gap BUN Creatinine Estimated GFR (MDRD) Glucose Calcium Total Bilirubin AST ALT Alkaline Phosphatase Troponin I Total Protein Albumin Globulin Albumin/Globulin Ratio Lipase - Rads (name of study) chest xray Radiology: Prelim report reviewed, See rad report PD MEDICAL DECISION MAKING - ED course Complexity details: reviewed results, re-evaluated patient, considered differential, d/w patient ED course: on reevaluation, patient is resting comfortably and no longer appears anxious. his tachycardia resolved without specific intervention (80s-90s NSR on monitor without ectopy) and he reports resolution of his symptoms. He seems reassured with discussion of his unremarkable test results and was comfortable with d/c home. I instructed him to f/u with PMD, as further testing might be warranted regarding tonights symptoms - Sepsis Event Vital Signs: Oxygen O2 Source Nasal cannula Departure - Departure Disposition: Home, Self Care Clinical Impression: Chest pain Qualifiers: Chest pain type: unspecified Qualified Code(s): R07.9 - Chest pain, unspecified Condition: Good Instructions: ED Chest Pain Atypical Unkn Cause Comments: Follow up with your primary care physician: call to arrange for next available appointment Discharge Date/Time: 11/18/17 06:23
[2017-11-18 06:24] VITALS: BP 133/90
== END 2017-11-18 06:23 | disposition home or self-care (01) ==
LOC: EDUNIT# → ED 01:31
DX: R07.9 Chest pain, unspecified (principal); I10 Essential (primary) hypertension; E11.9 Type 2 diabetes mellitus without complications; R00.0 Tachycardia, unspecified; Z79.82 Long term (current) use of aspirin; Z79.4 Long term (current) use of insulin
CPT/HCPCS: 36415; 71046; 80053; 83690; 84484; 85025; 85379; 93005; 99283; 99284

== ENCOUNTER 2017-11-23 22:00 | Outpatient (CLI) | payer MEDICAID ==
--- NOTE | 2017-11-24 14:28 | Ultrasound Report ---
Procedure Date: 11/23/2017 Accession Number: [id number] / [id number] Procedure: US - Testicle w/Doppler CPT Code: FULL RESULT: EXAM: SCROTAL ULTRASOUND EXAM DATE: 11/23/2017 10:36 PM. CLINICAL HISTORY: SCROTAL PAIN. COMPARISON: None. TECHNIQUE: Real-time scanning was performed with static images obtained. Both color-flow and Doppler spectral analysis were utilized. FINDINGS: Right: Testis: 4 x 1.9 x 2.8 cm. Normal size and echotexture. No mass, calcification, or abnormal blood flow. Epididymis: 0.7 x 1.1 x 1.5 cm. Normal size and echotexture. No mass or abnormal blood flow. Hydrocele: None. Varicocele: None. Left: Testis: 30.9 x 2 x 2.2 cm. Normal size and echotexture. No mass, calcification, or abnormal blood flow. Epididymis: 1.1 x 1.2 x 1 cm. Normal size and echotexture. No mass or abnormal blood flow. Hydrocele: None. Varicocele: None. IMPRESSION: Normal scrotal ultrasound. RADIA
== END 2017-11-23 22:01 | disposition home or self-care (01) ==
LOC: DI 22:00
PROVIDERS: ATTEND Family Medicine
DX: N50.82 Scrotal pain (principal)
CPT/HCPCS: 76870; 93975

== ENCOUNTER 2018-01-06 19:49 | Outpatient (CLI) | payer MEDICAID | END 2018-01-06 19:50 | disposition critical access hospital (66) | LOC: EMS 19:49 | PROVIDERS: ATTEND Surgery | DX: R42 Dizziness and giddiness (principal); R53.1 Weakness | CPT/HCPCS: A0425; A0429; A0999 ==

== ENCOUNTER 2018-01-06 20:09 | Emergency (ER) | payer MEDICAID ==
[2018-01-06] MEDS ORDERED: MECLIZINE 12.5 MG TABLET PO STA (20:26)
[2018-01-06] MEDS ORDERED: SODIUM CHLORIDE 0.9% 1,000 ML IV ONE (20:26)
[2018-01-06 21:01] LABS: MUDS CUTOFF CONCENTRATIONS CUTOFF CONC BELOW:
[2018-01-06 21:05] LABS: BILIRUBIN,URINE NEGATIVE (NEGATIVE); GLUCOSE, URINE (UA) 500 mg/dL (NEGATIVE); KETONES,URINE (UA) TRACE mg/dL (NEGATIVE); LEUKOCYTE ESTERASE, URINE NEGATIVE (NEGATIVE); NITRITE,URINE NEGATIVE (NEGATIVE); OCCULT BLOOD,URINE NEGATIVE (NEGATIVE); PH,URINE 6.5 PH (5.0-7.5); PROTEIN,URINE NEGATIVE (NEGATIVE); UROBILINOGEN,URINE 0.2 (NORMAL) E.U./dL (NORMAL)
--- NOTE | 2018-01-06 21:06 | CT Report ---
Reason: vertigo, nystagmus Procedure Date: 01/06/2018 Accession Number: [id number] / [id number] Procedure: CT - Head W/O CPT Code: FULL RESULT: EXAM: CT HEAD EXAM DATE: 01/06/2018 08:51 PM. CLINICAL HISTORY: Vertigo. Nystagmus. COMPARISON: HEAD ANGIO 10/21/2016 12:35 AM. TECHNIQUE: Multiaxial CT images were obtained from the foramen magnum to the vertex. Reformats: Sagittal and coronal. IV contrast: None. In accordance with CT protocol optimization, one or more of the following dose reduction techniques were utilized for this exam: automated exposure control, adjustment of mA and/or KV based on patient size, or use of iterative reconstructive technique. FINDINGS: Parenchyma: No intraparenchymal hemorrhage. No evidence of mass, midline shift, or CT findings of infarction. Lopez-white differentiation is distinct. Extraaxial Spaces: Normal for age. No subdural or epidural collections identified. Ventricles: Normal in size and position. Sinuses and Orbits: Imaged paranasal sinuses, orbits, and mastoids show no significant abnormality. Bones: No evidence of fracture or calvarial defect. Other: None. IMPRESSION: Normal head CT. RADIA
[2018-01-06 21:07] LABS: CLARITY,URINE CLEAR (CLEAR)
--- NOTE | 2018-01-06 21:10 | ED Physician Documentation ---
History of Present Illness - Stated complaint Stated Complaint: DIZZY - Chief complaint Chief Complaint: Neuro - History obtained from History obtained from: Patient, EMS - History of Present Illness Timing: Today - Additonal information Additional information: Patient is a 52 year old male with multiple ED visits who is presenting to the emergency department for multiple generalized complaints. patient states that this evening he had an episode when his head got real hot and he had a pain in his neck. He states that he felt the blood going through the veins in his neck. He got really dizzy and was barely able to stand and things he might have passed out for a second or two so his family called ems. Review of Systems Constitutional: reports: Sweats Eyes: reports: Decreased vision, Photophobia Ears: reports: Ear pain Cardiac: denies: Chest pain / pressure GI: reports: Nausea. denies: Vomiting : denies: Dysuria, Frequency, Hesitancy Skin: denies: Rash, Lesions Musculoskeletal: reports: Neck pain, Back pain, Extremity pain Neurologic: reports: Generalized weakness, Syncope Immunocompromised: denies: Immunocompromised PD PAST MEDICAL HISTORY - Past Medical History Past Medical History: Yes Cardiovascular: Hypertension, High cholesterol, Murmur Respiratory: None Endocrine/Autoimmune: Type 2 diabetes, HyPOthyroidism GI: None : Kidney stones Psych: Depression, Bipolar disorder Musculoskeletal: Chronic back pain Derm: Other - Past Surgical History Past Surgical History: Yes General: Appendectomy - Present Medications Home Medications: Ambulatory Orders Medication Instructions Recorded Confirmed Gabapentin 300 mg PO QID 08/18/16 10/27/17 Lisinopril 5 mg PO DAILY 08/18/16 10/27/17 SITagliptin [Januvia] 100 mg PO DAILY 09/22/16 10/27/17 Aspirin [Aspirin EC] 81 mg PO DAILY 12/30/16 10/27/17 Insulin Glargine,Hum.rec.anlog 25 unit SUBQ QPM 10/27/17 10/27/17 [Basaglar Kwikpen U-100] Insulin Glulisine [Apidra Solostar] 1 - 10 units SUBQ .SLIDINGSCALE 10/27/17 10/27/17 Metoprolol Tartrate 25 mg PO BID 10/27/17 10/27/17 Walker [Ultra-Light Rollator] 1 each MC DAILY #1 each 10/27/17 methIMAzole [Tapazole] 5 mg PO BID 10/27/17 10/27/17 Cyclobenzaprine [Flexeril] 10 mg PO TID PRN #15 tablet 10/28/17 oxyCODONE [Roxicodone] 10 mg PO Q6H PRN #30 tablet 10/28/17 Meclizine HCl 25 mg PO TID #14 tab.chew 01/06/18 - Allergies Allergies/Adverse Reactions: Allergies Allergy/AdvReac Type Severity Reaction Status Date / Time cinnamon Allergy Unknown Verified 11/02/17 03:19 pregabalin [From Lyrica] Allergy Unknown Verified 11/02/17 03:19 - Social History Does the pt smoke?: Yes Smoking Status: Current every day smoker Does the pt drink ETOH?: Yes Does the pt have substance abuse?: Yes Substance Use and Type: Marijuana - Immunizations Immunizations are current?: Yes - POLST Patient has POLST: No POLST Status: Full Code PD ED PE NORMAL - Vitals Vital signs reviewed: Yes - General General: Alert and oriented X 3, No acute distress - HEENT HEENT: Atraumatic, PERRL - Neck Neck: Supple, no meningeal sign - Cardiac Cardiac: RRR - Respiratory Respiratory: No respiratory distress - Abdomen Abdomen: Soft - Derm Derm: Normal color, Warm and dry - Extremities Extremities: No deformity, Normal ROM s pain, No edema - Neuro Neuro: Alert and oriented X 3, line closer 2-12 intact, No motor deficit, No sensory deficit, Normal speech Eye Opening: Spontaneous Motor: Obeys Commands Verbal: Oriented GCS Score: 15 PD ED PE EXPANDED - Eyes Eyes: Other (right sided nystagmus) Results - Vitals Vitals: Vital Signs - 24 hr 01/06/18 20:10 Temperature 37.2 C Heart Rate 114 H Respiratory 18 Rate Blood Pressure 146/97 H O2 Saturation 95 Oxygen O2 Source Room air - EKG (time done) 2019 Rate: Rate (enter#) (115) Rhythm: Sinus tachycardia Intervals: Normal ND Compare to prior EKG: Unchanged from prior EKG - Labs Labs: Laboratory Tests 01/06/18 20:55 Urine Color YELLOW Urine Clarity CLEAR Urine pH 6.5 Ur Specific [place] 1.025 Urine Protein NEGATIVE Urine Glucose (UA) 500 H Urine Ketones TRACE Urine Occult Blood NEGATIVE Urine Nitrite NEGATIVE Urine Bilirubin NEGATIVE Urine Urobilinogen 0.2 (NORMAL) Ur Leukocyte Esterase NEGATIVE Ur Microscopic Review NOT INDICATED Urine Culture Comments NOT INDICATED - Rads (name of study) ct head Radiology: Final report received (no acute intracranial pathology) PD MEDICAL DECISION MAKING - ED course Complexity details: reviewed old records, reviewed results, re-evaluated patient, considered differential, d/w patient ED course: patient was seen and examined at bedside. iv access was gained and labs were drawn. patient was treated with a fluid bolus and meclizine. imaging was ordered. When patient returned from imaging results were reviewed. there were no acute abnormalities. patient had no sign of dka and his tachycardia resolved. patient required no further work up and was stable for discharge with outpatient follow up. - Sepsis Event Vital Signs: Vital Signs - 24 hr 01/06/18 20:10 Temperature 37.2 C Heart Rate 114 H Respiratory 18 Rate Blood Pressure 146/97 H O2 Saturation 95 Oxygen O2 Source Room air Departure - Departure Disposition: Home, Self Care Clinical Impression: Neck pain on left side Condition: Good Instructions: ED Cephalgia Unspecified Follow-Up: Thanh Guevara MD [Primary Care Provider] - As Needed Prescriptions: Meclizine HCl 25 mg PO TID #14 tab.chew Comments: Your diagnostics today were within normal limits. there were no abnormalities on you imaging or blood work. You have been prescribed meclizine for vertigo. You can take motrin or tylenol as needed for pain. You should follow up with your doctor if your symptoms persist. You may return to the emergency department at any time for new, worsening or uncontrollable symptoms. Discharge Date/Time: 01/06/18 22:03
[2018-01-06 21:17] LABS: AMPHETAMINE SCREEN,URINE NEGATIVE (NEGATIVE); BENZODIAZEPINES SCREEN, URINE NEGATIVE (NEGATIVE); COCAINE SCREEN URINE NEGATIVE (NEGATIVE); METHADONE SCREEN, URINE NEGATIVE (NEGATIVE); METHAMPHETAMINES SCREEN, URINE NEGATIVE (NEGATIVE); OPIATE SCREEN, URINE NEGATIVE (NEGATIVE); OXYCODONE SCREEN, URINE NEGATIVE (NEGATIVE); PROPOXYPHENE SCREEN, URINE NEGATIVE (NEGATIVE); TRICYCLIC ANTIDEPRESSANT,URINE POSITIVE (NEGATIVE)
[2018-01-06 21:21] LABS: BASOPHILS % (AUTO) 0.3 %; EOSINOPHILS # (AUTO) 0.1 10^3/uL (0.0-0.7); LYMPHOCYTES # (AUTO) 1.6 10^3/uL (1.5-3.5); LYMPHOCYTES % (AUTO) 24.9 %; MEAN CORPUSCULAR HEMOGLOBIN 31.4 pg (27.0-31.0); MEAN CORPUSCULAR HGB CONC 34.4 g/dL (32.0-36.0); MEAN CORPUSCULAR VOLUME 91.1 fL (80.0-94.0); MEAN PLATELET VOLUME 9.5 fL (7.4-11.4); MONOCYTES # (AUTO) 0.9 10^3/uL (0.0-1.0); MONOCYTES % (AUTO) 13.6 %; NEUTROPHILS # (AUTO) 3.8 10^3/uL (1.5-6.6); NEUTROPHILS % (AUTO) 59.2 %; PLT - PLATELET COUNT 160 10^3/uL (130-450); RED BLOOD COUNT 4.48 10^6/uL (4.70-6.10); RED CELL DISTRIBUTION WIDTH 13.1 % (12.0-15.0); WHITE BLOOD COUNT 6.5 x10^3/uL (4.8-10.8)
[2018-01-06 21:25] LABS: VBG BASE EXCESS -0.3 mmol/L (-2 - +2); VBG PCO2 35.2 mmHg (41-51); VBG PH 7.439 (7.31-7.41); VBG PO2 129.7 mmHg (25-47); VBG TOTAL CO2 24.4 mmol/L (24-29)
[2018-01-06 21:37] LABS: ALBUMIN 3.9 g/dL (3.2-5.5); ALBUMIN/GLOBULIN RATIO 1.7 (1.0-2.2); ALKALINE PHOSPHATASE 70 IU/L (42-121); ALT ALANINE AMINOTRANSFERASE 22 IU/L (10-60); AST ASPARTATE AMINOTRANSFERASE 23 IU/L (10-42); BILIRUBIN,TOTAL 0.6 mg/dL (0.2-1.0); BUN - BLOOD UREA NITROGEN 11 mg/dL (6-20); CALCIUM 8.2 mg/dL (8.5-10.3); CARBON DIOXIDE - CO2 24 mmol/L (21-32); CHLORIDE 104 mmol/L (101-111); CREATININE 0.6 mg/dL (0.6-1.2); GFR - MDRD 140 (>89); GLUCOSE 189 mg/dL (70-100); KETONES, SERUM (ACETEST) NEGATIVE (NEGATIVE); LIPASE 34 U/L (22-51); MAGNESIUM 1.8 mg/dL (1.7-2.8); PHOSPHORUS 2.7 mg/dL (2.5-4.6); SODIUM 137 mmol/L (135-145); TOTAL PROTEIN 6.2 g/dL (6.7-8.2)
[2018-01-06] MEDS ORDERED: ACETAMINOPHEN 500 MG TABLET PO STA (21:46)
[2018-01-06 21:58] VITALS: BP 117/90
== END 2018-01-06 22:03 | disposition home or self-care (01) ==
LOC: EDUNIT# → ED 20:09
DX: M54.2 Cervicalgia (principal); R00.0 Tachycardia, unspecified; E11.9 Type 2 diabetes mellitus without complications; I10 Essential (primary) hypertension; R42 Dizziness and giddiness; F17.200 Nicotine dependence, unspecified, uncomplicated; Z79.4 Long term (current) use of insulin; Z79.82 Long term (current) use of aspirin
CPT/HCPCS: 36415; 70450; 80053; 80306; 80320; 81003; 82009; 82803; 83690; 83735; 83880; 84100; 84484; 85025; 93005; 96360; 99284; A9270; 81001; 87086

== ENCOUNTER 2018-02-11 19:27 | Emergency (ER) | payer MEDICAID ==
[2018-02-11 20:22] LABS: BASOPHILS % (AUTO) 0.3 %; EOSINOPHILS # (AUTO) 0.1 10^3/uL (0.0-0.7); EOSINOPHILS % (AUTO) 1.4 %; HGB - HEMOGLOBIN 15.4 g/dL (14.0-18.0); LYMPHOCYTES # (AUTO) 1.4 10^3/uL (1.5-3.5); LYMPHOCYTES % (AUTO) 19.4 %; MEAN CORPUSCULAR HEMOGLOBIN 31.5 pg (27.0-31.0); MEAN CORPUSCULAR HGB CONC 34.4 g/dL (32.0-36.0); MEAN CORPUSCULAR VOLUME 91.5 fL (80.0-94.0); MEAN PLATELET VOLUME 9.4 fL (7.4-11.4); MONOCYTES # (AUTO) 1.1 10^3/uL (0.0-1.0); NEUTROPHILS # (AUTO) 4.7 10^3/uL (1.5-6.6); NEUTROPHILS % (AUTO) 63.9 %; PLT - PLATELET COUNT 167 10^3/uL (130-450); RED BLOOD COUNT 4.91 10^6/uL (4.70-6.10); RED CELL DISTRIBUTION WIDTH 12.9 % (12.0-15.0); WHITE BLOOD COUNT 7.4 x10^3/uL (4.8-10.8)
[2018-02-11 20:33] LABS: ALBUMIN 4.2 g/dL (3.2-5.5); ALBUMIN/GLOBULIN RATIO 1.2 (1.0-2.2); BILIRUBIN,TOTAL 0.9 mg/dL (0.2-1.0); CALCIUM 8.5 mg/dL (8.5-10.3); CREATININE 0.8 mg/dL (0.6-1.2); TOTAL PROTEIN 7.6 g/dL (6.7-8.2)
[2018-02-11 20:36] LABS: BILIRUBIN,URINE NEGATIVE (NEGATIVE); GLUCOSE, URINE (UA) 500 mg/dL (NEGATIVE); KETONES,URINE (UA) 40 mg/dL (NEGATIVE); LEUKOCYTE ESTERASE, URINE NEGATIVE (NEGATIVE); NITRITE,URINE NEGATIVE (NEGATIVE); OCCULT BLOOD,URINE SMALL (NEGATIVE); PH,URINE 5.5 PH (5.0-7.5); PROTEIN,URINE NEGATIVE (NEGATIVE); UROBILINOGEN,URINE 0.2 (NORMAL) E.U./dL (NORMAL)
[2018-02-11 20:40] LABS: CLARITY,URINE HAZY (CLEAR)
[2018-02-11 20:44] LABS: BACTERIA,URINE None Seen /HPF (None Seen); RBC,URINE 0-5 /HPF (0-5); SQUAMOUS EPITHELIAL CELL,UR RARE Squamous (<= Few)
[2018-02-11] MEDS ORDERED: IOPAMIDOL-300 100 ML VIAL ONE (21:35)
[2018-02-11] MEDS ORDERED: IOPAMIDOL-300 100 ML VIAL IVP ONE (21:50)
[2018-02-11] MEDS ORDERED: SODIUM CHLORIDE 0.9% 500 ML IV ONE (21:57)
--- NOTE | 2018-02-11 21:57 | ED Physician Documentation ---
PD HPI ABD PAIN - Stated complaint Stated Complaint: MALE - Chief complaint Chief Complaint: Abd Pain - History obtained from History obtained from: Patient, Family - History of Present Illness Timing - onset: How many days ago (4) Timing - duration: Days (4) Timing - details: Gradual onset, Still present, Waxing and waning Quality: Cramping, Sharp, Pain Location: LLQ Improved by: Laying still Worsened by: Position, Palpation Associated symptoms: Nausea, Diarrhea, Other (black stool today). No: Vomiting Similar symptoms before: Has not had sx before Recently seen: Not recently seen - Additional information Additional information: 52-year-old male complains of a week long history of diarrhea and abdominal cramping especially on the left side. He is noticed black stool today and he is come to the emergency department. Review of Systems Constitutional: reports: Fever, Fatigue. denies: Chills Eyes: denies: Decreased vision Ears: denies: Ear pain Nose: denies: Rhinorrhea / runny nose, Congestion Throat: denies: Sore throat Cardiac: denies: Chest pain / pressure Respiratory: denies: Dyspnea, Cough GI: reports: Abdominal Pain, Nausea, Diarrhea, Bloody / black stool : denies: Dysuria, Frequency Skin: denies: Rash Musculoskeletal: reports: Back pain. denies: Neck pain, Extremity pain Neurologic: denies: Generalized weakness, Focal weakness, Numbness PD PAST MEDICAL HISTORY - Past Medical History Cardiovascular: Hypertension, High cholesterol, Murmur Respiratory: None Endocrine/Autoimmune: Type 2 diabetes, HyPOthyroidism GI: None : Kidney stones Psych: Depression, Bipolar disorder Musculoskeletal: Chronic back pain Derm: Other - Past Surgical History Past Surgical History: Yes General: Appendectomy - Present Medications Home Medications: Ambulatory Orders Medication Instructions Recorded Confirmed RX: Gabapentin 300 mg PO QID 08/18/16 10/27/17 RX: Lisinopril 5 mg PO DAILY 08/18/16 10/27/17 RX: SITagliptin [Januvia] 100 mg PO DAILY 09/22/16 10/27/17 RX: Aspirin [Aspirin EC] 81 mg PO DAILY 12/30/16 10/27/17 RX: Insulin Glargine,Hum.rec.anlog 25 unit SUBQ QPM 10/27/17 10/27/17 [Basaglar Kwikpen U-100] RX: Insulin Glulisine [Apidra 1 - 10 units SUBQ .SLIDINGSCALE 10/27/17 10/27/17 Solostar] RX: Metoprolol Tartrate 25 mg PO BID 10/27/17 10/27/17 RX: Walker [Ultra-Light Rollator] 1 each MC DAILY #1 each 10/27/17 RX: methIMAzole [Tapazole] 5 mg PO BID 10/27/17 10/27/17 RX: Cyclobenzaprine [Flexeril] 10 mg PO TID PRN #15 tablet 10/28/17 RX: oxyCODONE [Roxicodone] 10 mg PO Q6H PRN #30 tablet 10/28/17 RX: Meclizine HCl 25 mg PO TID #14 tab.chew 01/06/18 Ciprofloxacin HCl [Cipro] 500 mg PO BID #20 tablet 02/11/18 - Allergies Allergies/Adverse Reactions: Allergies Allergy/AdvReac Type Severity Reaction Status Date / Time cinnamon Allergy Unknown Verified 02/11/18 19:34 pregabalin [From Lyrica] Allergy Unknown Verified 02/11/18 19:34 - Social History Does the pt smoke?: Yes Smoking Status: Current every day smoker Does the pt drink ETOH?: Yes Does the pt have substance abuse?: Yes - Immunizations Immunizations are current?: Yes - POLST Patient has POLST: No POLST Status: Full Code PD ED PE NORMAL - Vitals Vital signs reviewed: Yes (tachy and hypertensive ) - General General: Alert and oriented X 3, Well developed/nourished - HEENT HEENT: Atraumatic, PERRL, EOMI - Neck Neck: Supple, no meningeal sign, No bony TTP - Cardiac Cardiac: RRR, No murmur - Respiratory Respiratory: No respiratory distress, Clear bilaterally - Abdomen Abdomen: Soft, Other (tenderness to the left lower quadrant without garding or rebound. The tenderness does appear to be re-producible. ) - Back Back: No CVA TTP, No spinal TTP - Derm Derm: Normal color, Warm and dry, Other (There is a rash to the chest wall below the right breast. 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, No motor deficit, No sensory deficit, Normal speech Eye Opening: Spontaneous Motor: Obeys Commands Verbal: Oriented GCS Score: 15 - Psych Psych: Normal mood, Normal affect Results - Vitals Vitals: Vital Signs - 24 hr 02/11/18 02/11/18 19:30 22:05 Temperature 36.6 C Heart Rate 115 H 86 Respiratory 18 12 Rate Blood Pressure 128/95 H 117/81 H O2 Saturation 99 96 Oxygen O2 Source Room air - Labs Labs: Laboratory Tests 02/11/18 02/11/18 02/11/18 20:15 20:15 20:32 WBC 7.4 RBC 4.91 Hgb 15.4 Hct 44.9 MCV 91.5 MCH 31.5 H MCHC 34.4 RDW 12.9 Plt Count 167 MPV 9.4 Neut # (Auto) 4.7 Lymph # (Auto) 1.4 L [place] # (Auto) 1.1 H Eos # (Auto) 0.1 Baso # (Auto) 0.0 Absolute Nucleated RBC 0.01 Nucleated RBC % 0.1 Sodium 135 Potassium 3.4 L Chloride 102 Carbon Dioxide 23 Anion Gap 10.0 BUN 16 Creatinine 0.8 Estimated GFR (MDRD) 101 Glucose 241 H Calcium 8.5 Total Bilirubin 0.9 AST 25 ALT 28 Alkaline Phosphatase 82 Total Protein 7.6 Albumin 4.2 Globulin 3.4 Albumin/Globulin Ratio 1.2 Lipase 31 Urine Color YELLOW Urine Clarity HAZY Urine pH 5.5 Ur Specific [place] 1.025 Urine Protein NEGATIVE Urine Glucose (UA) 500 H Urine Ketones 40 H Urine Occult Blood SMALL H Urine Nitrite NEGATIVE Urine Bilirubin NEGATIVE Urine Urobilinogen 0.2 (NORMAL) Ur Leukocyte Esterase NEGATIVE Urine RBC 0-5 Urine WBC 0-3 Ur Squamous Epith Cells RARE Squamous Urine Bacteria None Seen Ur Microscopic Review INDICATED Urine Culture Comments NOT INDICATED - Rads (name of study) CT abd/pel with Radiology: Prelim report reviewed (Impression: Equivocal mild hyperemia adjacent to the transverse, descending, and sigmoid colon, which could be seen with mild colitis, versus artifact of under distention. No other potential etiology identified for left lower quadrant pain.), EMP read indepedently, See rad report Procedures - IVC sono (time) 1999 Bedside IVC sono: IVC measures (cm) (1.56), Euvolemia PD MEDICAL DECISION MAKING - ED course Complexity details: reviewed old records, reviewed results, re-evaluated patie nt, considered differential, d/w patient, d/w family ED course: 52-year-old male with a prior history of fictitious presentations has developed some diarrhea and left sided abdominal pain. He does have some tenderness on examination and a CT scan of the abdomen and pelvis with contrast shows some inflammation of the colon consistent with colitis. There are no other findings and there is not diverticulitis. I discussed with the patient treatment of colitis with Cipro and Flagyl and the patient believes he is already taking Flagyl for the past 2-1/[address] him on some Cipro tonight. Departure - Departure Disposition: 01 Home, Self Care Clinical Impression: Colitis Instructions: ED Gastroenteritis Bacterial Follow-Up: Thanh Guevara MD [Primary Care Provider] - Prescriptions: Ciprofloxacin HCl [Cipro] 500 mg PO BID #20 tablet Discharge Date/Time: 02/11/18 23:21
[2018-02-11 22:06] VITALS: BP 117/81
--- NOTE | 2018-02-11 22:26 | CT Report ---
Reason: LLQ pain Procedure Date: 02/11/2018 Accession Number: [id number] / [id number] Procedure: CT - Abdomen/Pelvis W/ CPT Code: FULL RESULT: EXAM: CT ABDOMEN AND PELVIS EXAM DATE: 02/11/2018 10:00 PM. CLINICAL HISTORY: Left lower quadrant pain. COMPARISONS: ABDOMEN/PELVIS W/ 10/26/2017 3:45 PM ABDOMEN/PELVIS W/ 12/17/2016 11:09 AM ABDOMEN/PELVIS W/ 10/30/2016 4:56 AM. TECHNIQUE: Routine helical CT imaging was performed through the abdomen and pelvis. IV contrast: ISOVUE 300 100mL. Enteric contrast: No. Reconstructions: Coronal and sagittal. In accordance with CT protocol optimization, one or more of the following dose reduction techniques were utilized for this exam: automated exposure control, adjustment of mA and/or KV based on patient size, or use of iterative reconstructive technique. FINDINGS: Lung Bases: Mild dependent atelectasis. Liver: Normal. No focal hepatic lesion. Gallbladder/Bile Ducts: Unremarkable. No visualized stones or biliary ductal dilatation. Spleen: Normal. Pancreas: Normal. Adrenal Glands: Normal. Kidneys and Ureters: Two tiny circumscribed sub-centimeter hypoattenuating foci in the left upper pole cortex likely represent cysts. No stones, hydronephrosis, or hydroureter. Peritoneal Cavity/Bowel: Equivocal mild hyperemia adjacent to the decompressed transverse, descending, and sigmoid colon, without definite wall thickening; evaluation is limited by under distention and absence of enteric contrast. No evidence for bowel obstruction. The appendix is surgically absent. No free fluid, pneumoperitoneum, or adenopathy. Pelvic Organs: The bladder and visualized reproductive organs are within normal limits. Vasculature: Trace atherosclerotic calcifications in the distal abdominal aorta. Bones: Mild degenerative changes within the spine. No acute bony abnormality. Other: Unchanged tiny fat-containing umbilical hernia. IMPRESSION: Equivocal mild hyperemia adjacent to the transverse, descending, and sigmoid colon, which could be seen with mild colitis, versus artifact of underdistention. No other potential etiology identified for left lower quadrant pain. RADIA
[2018-02-11] MEDS ORDERED: CIPROFLOXACIN 250 MG TABLET PO STA (23:07)
== END 2018-02-11 23:21 | disposition home or self-care (01) ==
LOC: ED 19:27
DX: K52.9 Noninfective gastroenteritis and colitis, unspecified (principal); I10 Essential (primary) hypertension; E11.9 Type 2 diabetes mellitus without complications; Z79.4 Long term (current) use of insulin; F17.200 Nicotine dependence, unspecified, uncomplicated
CPT/HCPCS: 36415; 74177; 80053; 81001; 83690; 85025; 96360; 99283; A9270; Q9967; 81003; 87086

== ENCOUNTER 2018-02-27 09:02 | Outpatient (CLI) | payer MEDICAID | END 2018-02-27 09:03 | disposition critical access hospital (66) | LOC: EMS 09:02 | PROVIDERS: ATTEND Surgery | DX: R53.1 Weakness (principal); R20.0 Anesthesia of skin | CPT/HCPCS: A0425; A0429; A0999 ==

== ENCOUNTER 2018-02-27 09:21 | Emergency (ER) | payer MEDICAID ==
[2018-02-27 09:29] VITALS: BP 148/112
[2018-02-27] MEDS ORDERED: LIDOCAINE PATCH 5% TOP STA (09:51)
[2018-02-27] MEDS ORDERED: DEXAMETHASONE 10 MG/ML VIAL PO STA (09:51)
[2018-02-27] MEDS ORDERED: KETOROLAC 60 MG/2 ML VIAL IVP STA (09:51)
--- NOTE | 2018-02-27 09:55 | ED Physician Documentation ---
History of Present Illness - Stated complaint Stated Complaint: L LEG NUMBNESS - Chief complaint Chief Complaint: General - Additonal information Additional information: hx from pt 52 male IDDM known HNP dx by MRI in last few motnhs also recent LLLQ coliitis txed with cipro and L knee injury (MCL PCL meniscus per pt, dx by MRI as well) states was in normal state of health with improving LLQ pain and wearing his hinged LLE brace and this AM suddenly developed severe pain to left lower back radiating down his entire leg with numbness to L buttock and foot and weakness which may be partly 2/2 pain no incont no fever no saddle anesthesia hx sciatica but this is worse and the numbness is new Review of Systems Constitutional: reports: Sweats. denies: Fever, Chills Cardiac: denies: Chest pain / pressure Respiratory: denies: Dyspnea GI: reports: Abdominal Pain (LLQ gettign better with tx for colitis dx by CT last week) : denies: Incontinent Musculoskeletal: reports: Extremity pain (LLE). denies: Extremity swelling Neurologic: reports: Focal weakness, Numbness Endocrine: denies: Easy bruising / bleeding Immunocompromised: denies: Immunocompromised PD PAST MEDICAL HISTORY - Past Medical History Past Medical History: Yes Cardiovascular: Hypertension, High cholesterol, Murmur Respiratory: None Endocrine/Autoimmune: Type 2 diabetes, HyPOthyroidism GI: None : Kidney stones Psych: Depression, Bipolar disorder Musculoskeletal: Chronic back pain Derm: Other - Past Surgical History Past Surgical History: Yes General: Appendectomy Ortho: ACL reconstruction - Present Medications Home Medications: Ambulatory Orders Medication Instructions Recorded Confirmed Gabapentin 300 mg PO QID 08/18/16 10/27/17 Lisinopril 5 mg PO DAILY 08/18/16 10/27/17 SITagliptin [Januvia] 100 mg PO DAILY 09/22/16 10/27/17 Aspirin [Aspirin EC] 81 mg PO DAILY 12/30/16 10/27/17 Insulin Glargine,Hum.rec.anlog 25 unit SUBQ QPM 10/27/17 10/27/17 [Basaglar Kwikpen U-100] Insulin Glulisine [Apidra Solostar] 1 - 10 units SUBQ .SLIDINGSCALE 10/27/17 10/27/17 Metoprolol Tartrate 25 mg PO BID 10/27/17 10/27/17 methIMAzole [Tapazole] 5 mg PO BID 10/27/17 10/27/17 oxyCODONE [Roxicodone] 10 mg PO Q6H PRN #30 tablet 10/28/17 Meclizine HCl 25 mg PO TID #14 tab.chew 01/06/18 Ciprofloxacin HCl [Cipro] 500 mg PO BID #20 tablet 02/11/18 Cefadroxil [Duricef] 500 mg PO BID 02/27/18 Cyclobenzaprine [Flexeril] 10 mg PO QPM PRN 02/27/18 Diclofenac Sodium 02/27/18 Meloxicam 7.5 mg PO 02/27/18 hydrOXYzine pamoate [Hydroxyzine 25 mg PO 02/27/18 Pamoate] - Allergies Allergies/Adverse Reactions: Allergies Allergy/AdvReac Type Severity Reaction Status Date / Time cinnamon Allergy Unknown Verified 02/11/18 19:34 pregabalin [From Lyrica] Allergy Unknown Verified 02/11/18 19:34 - Social History Does the pt smoke?: Yes Smoking Status: Current every day smoker Does the pt drink ETOH?: Yes Does the pt have substance abuse?: Yes - Immunizations Immunizations are current?: Yes - POLST Patient has POLST: No POLST Status: Full Code PD ED PE NORMAL - Vitals Vital signs reviewed: Yes - General General: Alert and oriented X 3 - HEENT HEENT: PERRL - Neck Neck: Supple, no meningeal sign - Cardiac Cardiac: RRR, No murmur - Respiratory Respiratory: No respiratory distress, Clear bilaterally - Abdomen Abdomen: Soft, Non tender, Other (no pulsatile mass) - Back Back: Other (no focal spine TTP redness swelling or warmth, low left ST TTP wthout visible erythema or swelling, no rash, no crepitus) - Derm Derm: Normal color, Other (diaphoretic) - Extremities Extremities: No deformity, Other (no edema, severe TTP entire leg, + pulse, + cap refill, no redness warmth, crepits, necrosis, cmpt feel soft, pain with any ROM) - Neuro Neuro: Other (no saddle anesthesia, nl spincter tone, numbness to L buttock and entire foot, hip flexion 3/5 may be due to pain, knee ext intact, foot dorsi plantar 5/5, cant extend great toe, no clonus, patellar DTR 1/4, ? SLR as the leg hurts even before SLR) Results - Vitals Vitals: Vital Signs - 24 hr 02/27/18 09:25 Temperature 36.0 C L Heart Rate 116 H Respiratory 16 Rate Blood Pressure 148/112 H O2 Saturation 98 Oxygen O2 Source Room air - Labs Labs: Laboratory Tests 02/27/18 02/27/18 02/27/18 10:08 10:08 10:08 WBC 6.8 RBC 4.97 Hgb 15.6 Hct 45.6 MCV 91.8 MCH 31.3 H MCHC 34.1 RDW 13.1 Plt Count 179 MPV 9.2 Neut # (Auto) 4.8 Lymph # (Auto) 1.2 L [place] # (Auto) 0.8 Eos # (Auto) 0.0 Baso # (Auto) 0.0 Absolute Nucleated RBC 0.00 Nucleated RBC % 0.0 ESR 1 Sodium 134 L Potassium 3.5 Chloride 102 Carbon Dioxide 24 Anion Gap 8.0 BUN 18 Creatinine 0.7 Estimated GFR (MDRD) 118 Glucose 233 H Calcium 8.7 C-Reactive Protein Urine Color Urine Clarity Urine pH Ur Specific [place] Urine Protein Urine Glucose (UA) Urine Ketones Urine Occult Blood Urine Nitrite Urine Bilirubin Urine Urobilinogen Ur Leukocyte Esterase Ur Microscopic Review Urine Culture Comments 02/27/18 02/27/18 10:08 10:58 WBC RBC Hgb Hct MCV MCH MCHC RDW Plt Count MPV Neut # (Auto) Lymph # (Auto) [place] # (Auto) Eos # (Auto) Baso # (Auto) Absolute Nucleated RBC Nucleated RBC % ESR Sodium Potassium Chloride Carbon Dioxide Anion Gap BUN Creatinine Estimated GFR (MDRD) Glucose Calcium C-Reactive Protein < 1.0 Urine Color YELLOW Urine Clarity CLEAR Urine pH 5.0 Ur Specific [place] >=1.030 H Urine Protein TRACE Urine Glucose (UA) 500 H Urine Ketones NEGATIVE Urine Occult Blood NEGATIVE Urine Nitrite NEGATIVE Urine Bilirubin NEGATIVE Urine Urobilinogen 0.2 (NORMAL) Ur Leukocyte Esterase NEGATIVE Ur Microscopic Review NOT INDICATED Urine Culture Comments NOT INDICATED PD MEDICAL DECISION MAKING - ED course ED course: 52 male with known HNP and recent colitis presents with abrupt onset of radicular LLE pain and paresthesias recent MRI (last 6 months or so) documented HNP/formainal stenosis but no cauda equina also recent colitis but CT (within last month) showed no abscess a;lso has had artertial dioppler for similar sx which was normal and a normal abd CTA and a normal retroperitoneal sono no fever but tachy - pt is a diabetic insulin dependent so at increased risk for epidural abscess etc - but fairly abrupt onset would be atypical will tx symtoms and check labs including sed rate and CRP and get a post void bladder scan and then determine if emergent MRI imaging will be needed from ER chart review indicates pt was seen in ER for similar sx in October and was admitted for intractable and and MRI etc afebrile nl WBC neg ESR and CRP reassuring this is not epidural abscess pt was upset at long ER stay (single coverage 24 patients from 7-12) and became irate and left /eloped before i could re-eval him - per nurses/ER staff he was ambulatory, per registration he said he was leaving because nobody had done anything (actually he was seen upon arrival, had a careful full exam, had labs urine bladder scan and medications), then he apparently returned to the lobby and was advised by nursing I would be happy to re-eval him and continue care as soon as he could be placed back in a bed (his had already been cleaned and had a new pt) and I had a moment, but he declined that as well and left again without coming back into the department and without me ever getting to see him again - (see ER nurse warehouse operations manager note) Departure - Departure Disposition: ED [place] Clinical Impression: Leg pain Qualifiers: Laterality: left Qualified Code(s): M79.605 - Pain in left leg Back pain Qualifiers: Back pain location: low back pain Chronicity: acute Back pain laterality: left Sciatica presence: unspecified whether sciatica present Qualified Code(s): M54.5 - Low back pain Discharge Date/Time: 02/27/18 12:56
[2018-02-27 10:17] LABS: BASOPHILS % (AUTO) 0.5 %; EOSINOPHILS % (AUTO) 0.7 %; HGB - HEMOGLOBIN 15.6 g/dL (14.0-18.0); LYMPHOCYTES # (AUTO) 1.2 10^3/uL (1.5-3.5); LYMPHOCYTES % (AUTO) 16.8 %; MEAN CORPUSCULAR HEMOGLOBIN 31.3 pg (27.0-31.0); MEAN CORPUSCULAR HGB CONC 34.1 g/dL (32.0-36.0); MEAN CORPUSCULAR VOLUME 91.8 fL (80.0-94.0); MEAN PLATELET VOLUME 9.2 fL (7.4-11.4); MONOCYTES # (AUTO) 0.8 10^3/uL (0.0-1.0); MONOCYTES % (AUTO) 11.8 %; NEUTROPHILS # (AUTO) 4.8 10^3/uL (1.5-6.6); NEUTROPHILS % (AUTO) 70.2 %; PLT - PLATELET COUNT 179 10^3/uL (130-450); RED BLOOD COUNT 4.97 10^6/uL (4.70-6.10); RED CELL DISTRIBUTION WIDTH 13.1 % (12.0-15.0); WHITE BLOOD COUNT 6.8 x10^3/uL (4.8-10.8)
[2018-02-27 10:24] LABS: CALCIUM 8.7 mg/dL (8.5-10.3); CREATININE 0.7 mg/dL (0.6-1.2)
[2018-02-27 12:04] LABS: BILIRUBIN,URINE NEGATIVE (NEGATIVE); GLUCOSE, URINE (UA) 500 mg/dL (NEGATIVE); KETONES,URINE (UA) NEGATIVE (NEGATIVE); LEUKOCYTE ESTERASE, URINE NEGATIVE (NEGATIVE); NITRITE,URINE NEGATIVE (NEGATIVE); OCCULT BLOOD,URINE NEGATIVE (NEGATIVE); PROTEIN,URINE TRACE mg/dL (NEGATIVE); UROBILINOGEN,URINE 0.2 (NORMAL) E.U./dL (NORMAL)
[2018-02-27 12:12] LABS: CLARITY,URINE CLEAR (CLEAR)
== END 2018-02-27 12:56 | disposition left against medical advice (07) ==
LOC: EDUNIT# → ED 09:21
DX: M79.605 Pain in left leg (principal); M54.5 Low back pain; I10 Essential (primary) hypertension; E11.9 Type 2 diabetes mellitus without complications; G89.29 Other chronic pain; F17.200 Nicotine dependence, unspecified, uncomplicated; Z79.4 Long term (current) use of insulin; Z53.29 Procedure and treatment not carried out because of patient's decision for other reasons
CPT/HCPCS: 36415; 80048; 81003; 85025; 85651; 86140; 96374; 99282; 99283; A9270; 81001; 87086

== ENCOUNTER 2018-03-18 10:42 | Outpatient (CLI) | payer MEDICAID | END 2018-03-18 10:43 | disposition short-term general hospital (02) | LOC: EMS 10:42 | PROVIDERS: ATTEND Surgery | DX: R07.9 Chest pain, unspecified (principal); R20.0 Anesthesia of skin | CPT/HCPCS: A0425; A0427; A0999 ==

== ENCOUNTER 2018-04-14 22:01 | Outpatient (CLI) | payer MEDICAID | END 2018-04-14 22:02 | disposition critical access hospital (66) | LOC: EMS 22:01 | PROVIDERS: ATTEND Surgery | DX: S89.92XA Unspecified injury of left lower leg, initial encounter (principal) | CPT/HCPCS: A0425; A0429 ==

== ENCOUNTER 2018-04-14 22:18 | Emergency (ER) | payer MEDICAID ==
--- NOTE | 2018-04-14 22:34 | ED Physician Documentation ---
PD HPI LOWER EXT INJURY - Stated complaint Stated Complaint: LEFT KNEE PAIN - Chief complaint Chief Complaint: Ext Problem - History obtained from History obtained from: Patient - History of Present Illness PD HPI LOW EXT INJURY LOCATION: Left, Knee Type of injury: Other (He had knee arthroscopy for days ago in [facility] with some clearing up of meniscal tears and some scar tissue and reportedly had repair of the MCL. The ACL was reportedly okay. His postoperative instructions were to be ambulatory with gentle range of motion and use and progressive activity. He states he was walking his dog yesterday and it pulled on him any had several fast steps and felt a pop and pain in the knee. He has had increased pain in the knee going up to the thigh and inguinal area and some numbness on the top of the foot developed since that time. He is having some bruising around and just below the knee showing up today.) Where injury occurred: Home Timing - details: Abrupt onset (He was having postoperative pain from the scope the last several days and then it worsened abruptly with the walking hard and slight run yesterday and has continued at a higher level of pain.), Still present Worsened by: Palpating, Other (has tenderness in medial calf and thigh as well today.) Associated symptoms: Numbness (dorsum of foot the past 1-2 days), Swelling (around the knee with some bruising). No: Weakness Contributing factors: Prior ortho surgery (4 days ago, scope). No: Anticoagulated Recently seen: Surgery Review of Systems Constitutional: denies: Fever, Chills GI: denies: Nausea, Vomiting Skin: denies: Rash Musculoskeletal: reports: Extremity pain Neurologic: reports: Numbness. denies: Focal weakness PD PAST MEDICAL HISTORY - Past Medical History Cardiovascular: Hypertension, High cholesterol, Murmur Respiratory: None Endocrine/Autoimmune: Type 2 diabetes, HyPOthyroidism GI: None : Kidney stones Psych: Depression, Bipolar disorder Musculoskeletal: Chronic back pain Derm: Other - Past Surgical History Past Surgical History: Yes General: Appendectomy Ortho: ACL reconstruction - Present Medications Home Medications: Ambulatory Orders Medication Instructions Recorded Confirmed Gabapentin 300 mg PO QID 08/18/16 10/27/17 Lisinopril 5 mg PO DAILY 08/18/16 10/27/17 SITagliptin [Januvia] 100 mg PO DAILY 09/22/16 10/27/17 Aspirin [Aspirin EC] 81 mg PO DAILY 12/30/16 10/27/17 Insulin Glargine,Hum.rec.anlog 25 unit SUBQ QPM 10/27/17 10/27/17 [Kelseyaglsima Ramos U-100] oxyCODONE [Roxicodone] 10 mg PO Q6H PRN #30 tablet 10/28/17 Cefadroxil [Duricef] 500 mg PO BID 02/27/18 Cyclobenzaprine [Flexeril] 10 mg PO QPM PRN 02/27/18 Naproxen 500 mg PO BID #20 tablet 04/15/18 - Allergies Allergies/Adverse Reactions: Allergies Allergy/AdvReac Type Severity Reaction Status Date / Time cinnamon Allergy Unknown Verified 04/14/18 22:27 pregabalin [From Lyrica] Allergy Unknown Verified 04/14/18 22:27 - Social History Does the pt smoke?: Yes Smoking Status: Current every day smoker Does the pt drink ETOH?: Yes Does the pt have substance abuse?: Yes - Immunizations Immunizations are current?: Yes - POLST Patient has POLST: No POLST Status: Full Code PD ED PE NORMAL - Vitals Vital signs reviewed: Yes - General General: Alert and oriented X 3, Well developed/nourished, Other (appears uncomfortable with ROM of the knee, more comfortable if lying still. ) - Cardiac Cardiac: RRR, No murmur - Respiratory Respiratory: Clear bilaterally - Abdomen Abdomen: Soft, Non tender - Male Male : Deferred - Back Back: No CVA TTP, No spinal TTP - Derm Derm: Normal color, Warm and dry - Extremities Extremities: Other (left knee with some bruising inferior and anterior, mild to medium amount and purple. No redness nor warmth per se. Minimal anterior effusion. Healing scope sites without drainage. There is tenderness along medial calf and medial to anterior thigh. No redness. No edema in lower leg. Less sensation to touch dorsum of left foot, but normal at toes and bottom of foot. ) Results - Vitals Vitals: Vital Signs - 24 hr 04/14/18 22:20 Temperature 36.7 C Heart Rate 110 H Respiratory 18 Rate Blood Pressure 132/99 H O2 Saturation 98 Oxygen O2 Source Room air - Rads (name of study) duplex left leg Radiology: Prelim report reviewed (no DVT. small fluid collection/effusion anterior knee), See rad report PD MEDICAL DECISION MAKING - ED course Complexity details: considered differential (No signs of infection clinically. He does have some pain in the thigh and calf area so will ultrasound to evaluate for possible DVT. He had had an abrupt pain with a slight short run after his dog yesterday which was only 3 days postop. He was supposed to be doing light walking. He may have had some bleeding develop and such the bruising and increased pain. There may been some disruption of the MCL repair. He will need to follow-up with his orthopedist and I am sure they will want some more healing time for the swelling and bruising to go down. We can add some anti- inflammatories. He already has prescription for pain medications. The ultrasound to evaluate for DVT was negative. Presumably there is some muscle irritation as well causing the pain upward to the anterior thigh.), d/w patient Departure - Departure Disposition: 01 Home, Self Care Clinical Impression: Left leg pain, Status post arthroscopic knee surgery Clinical Impression: (Ruled Out): Deep vein thrombosis Condition: Stable Record reviewed to determine appropriate education?: Yes Follow-Up: Thanh Guevara MD [Primary Care Provider] - Prescriptions: Naproxen 500 mg PO BID #20 tablet Comments: Stay well-hydrated. Continue your current medications. Consider adding an anti-inflammatory such as naproxen or ibuprofen 2-3 times daily for the next week. Follow-up with your orthopedist this coming week, call to update them on the symptoms and such.
[2018-04-14] MEDS ORDERED: HYDROmorphone 1 MG/ML CARPUJECT IM STA (22:54)
--- NOTE | 2018-04-15 00:07 | Ultrasound Report ---
Reason: calf and thigh pain; post knee scope 4 days ago Procedure Date: 04/14/2018 Accession Number: [id number] / [id number] Procedure: US - Duplex Ext Veins Left CPT Code: FULL RESULT: EXAM: LEFT LOWER EXTREMITY VENOUS ULTRASOUND EXAM DATE: 04/14/2018 11:18 PM. CLINICAL HISTORY: Calf and thigh pain; post knee scope 4 days ago. COMPARISON: 10/20/2016. TECHNIQUE: Real-time sonographic vascular imaging was performed by the ammonium sulfate operator through the lower extremity utilizing both color-flow and Doppler spectral analysis. Multiple sales representative canvas products static images were saved for review. FINDINGS: Common Femoral Vein (CFV): Normal. CFV-GSV [place]unction: Normal. Profunda Femoral Vein (PFV): Normal. Femoral Vein (FV) Prox: Normal. Femoral Vein (FV) Mid: Normal. Femoral Vein (FV) Dist: Normal. Popliteal Vein: Normal. Posterior Tibial Veins: Normal. Peroneal Veins: Normal. Other: Fluid collection anterior to the knee measuring 1.8 x 0.7 x 2.6 cm. IMPRESSION: 1. No evidence for deep venous thrombosis. 2. Small fluid collection anterior to the knee, probably joint effusion. RADIA
[2018-04-15] MEDS ORDERED: NAPROXEN 250 MG TABLET PO STA (00:14)
[2018-04-15 00:54] VITALS: BP 128/78
== END 2018-04-15 00:55 | disposition home or self-care (01) ==
LOC: EDUNIT# → ED 22:18
DX: M79.605 Pain in left leg (principal); Z98.890 Other specified postprocedural states; I10 Essential (primary) hypertension; E78.00 Pure hypercholesterolemia, unspecified; E03.9 Hypothyroidism, unspecified; E11.9 Type 2 diabetes mellitus without complications; Z79.4 Long term (current) use of insulin; Z79.82 Long term (current) use of aspirin; F17.200 Nicotine dependence, unspecified, uncomplicated
CPT/HCPCS: 93971; 96372; 99283; A9270; J1170

== ENCOUNTER 2018-05-04 11:27 | Outpatient (CLI) | payer MEDICAID ==
[2018-05-04 19:56] LABS: HB2 TOTAL 15.3 g/dL; HEMOGLOBIN A1C 1.22 g/dL; HEMOGLOBIN A1C % 9.4 % (4.6-6.2)
== END 2018-05-04 11:28 | disposition home or self-care (01) ==
LOC: LAB.N 11:27
PROVIDERS: ATTEND Physician Assistant Medical
DX: E11.65 Type 2 diabetes mellitus with hyperglycemia (principal); E05.90 Thyrotoxicosis, unspecified without thyrotoxic crisis or storm
CPT/HCPCS: 36415; 83036; 84443

== ENCOUNTER 2018-06-07 11:38 | Outpatient (CLI) | payer MEDICAID | END 2018-06-07 11:39 | disposition critical access hospital (66) | LOC: EMS 11:38 | PROVIDERS: ATTEND Surgery | DX: M54.5 Low back pain (principal); R20.2 Paresthesia of skin | CPT/HCPCS: A0425; A0429; A0999 ==

== ENCOUNTER 2018-06-07 12:03 | Emergency (ER) | payer MEDICAID ==
[2018-06-07] MEDS ORDERED: diazePAM 5 MG TABLET PO STA (13:25)
[2018-06-07] MEDS ORDERED: NAPROXEN 250 MG TABLET PO STA (13:25)
[2018-06-07] MEDS ORDERED: HYDROcod/ACETAM 5/325 MG TABLET PO STA (13:27)
--- NOTE | 2018-06-07 13:28 | ED Physician Documentation ---
PD HPI BACK PAIN - Stated complaint Stated Complaint: Back pain - Chief complaint Chief Complaint: Back Pain - Additional information Additional information: 52-year-old male with a history of cervical and lumbar spinal issues. The patient has a history of bulging disks in his lumbar spine and spinal stenosis. The patient had no injury today or fall. The patient reports Pain in his lumbar region which radiates into his left leg which started this morning upon waking up and continued while at work. The patient denies any motor weakness but does report increased pain with movement. The patient denies urinary retention, overflow incontinence, saddle anesthesia, hematuria, fever, IV drug use, dialysis or diabetes. No attempts at symptom management. No other associated symptoms. No clear triggering factors Review of Systems Constitutional: denies: Fever, Chills Cardiac: denies: Chest pain / pressure Respiratory: denies: Cough GI: denies: Abdominal Pain : denies: Dysuria, Incontinent, Hematuria Musculoskeletal: reports: Back pain Neurologic: denies: Focal weakness, Numbness, Head injury Immunocompromised: denies: Chemotherapy PD PAST MEDICAL HISTORY - Past Medical History Cardiovascular: Hypertension, High cholesterol, Murmur Respiratory: None Neuro: None Endocrine/Autoimmune: Type 2 diabetes, HyPOthyroidism GI: None : Kidney stones HEENT: None Psych: Depression, Bipolar disorder Musculoskeletal: Chronic back pain Derm: Other - Past Surgical History Past Surgical History: Yes General: Appendectomy Ortho: ACL reconstruction - Present Medications Home Medications: Ambulatory Orders Medication Instructions Recorded Confirmed Lisinopril 5 mg PO DAILY 08/18/16 10/27/17 SITagliptin [Januvia] 100 mg PO DAILY 09/22/16 10/27/17 Aspirin [Aspirin EC] 81 mg PO DAILY 12/30/16 10/27/17 Insulin Glargine,Hum.rec.anlog 25 unit SUBQ QPM 10/27/17 10/27/17 [Basaglar Kwikpen U-100] Cefadroxil [Duricef] 500 mg PO BID 02/27/18 Cyclobenzaprine [Flexeril] 10 mg PO QPM PRN 02/27/18 Hydrocodone/Acetaminophen [[place] 1 each PO Q6HR PRN #10 tablet 06/07/18 5-325 Tablet] Naproxen 500 mg PO BID PRN #60 tablet 06/07/18 Thyroid Med 03/06/19 diazePAM [Valium] 5 mg PO TID PRN #15 tablet 06/07/18 - Allergies Allergies/Adverse Reactions: Allergies Allergy/AdvReac Type Severity Reaction Status Date / Time cinnamon Allergy Unknown Verified 06/07/18 12:09 pregabalin [From Lyrica] Allergy Unknown Verified 06/07/18 12:09 - Social History Does the pt smoke?: Yes Smoking Status: Current every day smoker Does the pt drink ETOH?: Yes Does the pt have substance abuse?: Yes - Immunizations Immunizations are current?: Yes - POLST Patient has POLST: No POLST Status: Full Code PD ED PE NORMAL - General General: Alert and oriented X 3 - HEENT HEENT: Atraumatic, PERRL, EOMI, Ears normal - Back Back: No spinal TTP (The patient has tenderness to palpation at L5, S1 on the left side, there is no skin changes, no swelling or bogginess of the back, no palpable abscess, no crepitus or obvious deformity) - Derm Derm: Normal color - Extremities Extremities: No deformity, No tenderness to palpate, Normal ROM s pain - Neuro Neuro: Alert and oriented X 3, No motor deficit, Normal speech, Other (The patient has 5/5 muscle strength in the lower extremities, the patient has 2/4 bilateral patellar reflexes, the patient has normal sensation to light touch bilaterally, the patient has normal bilateral dorsalis pedis pulses and normal cap refill. The patient is able to stand and ambulate) Results - Vitals Vitals: Vital Signs - 24 hr 06/07/18 12:05 Temperature 36.8 C Heart Rate 114 H Respiratory 16 Rate Blood Pressure 108/80 O2 Saturation 99 Oxygen O2 Source Room air PD MEDICAL DECISION MAKING - ED course ED course: The patient appears to have acute back pain with sciatica, the patient has no red flags to suggest epidural abscess or cauda equina and currently there is no emergent indication for MRI. The patient appears appropriate for discharge with symptomatic management and follow-up as an outpatient for ongoing management with physical therapy and possibly an MRI. The patient understands. I discussed warning signs recommend returning for any worsening or any concerns. Departure - Departure Disposition: 01 Home, Self Care Clinical Impression: Back pain Qualifiers: Back pain location: low back pain Chronicity: acute Back pain laterality: unspecified Sciatica presence: with sciatica Sciatica laterality: sciatica laterality unspecified Qualified Code(s): M54.40 - Lumbago with sciatica, unspecified side Condition: Good Instructions: Back Safety Bending, Back Safety Lifting, ED Sciatica Follow-Up: Thanh Guevara MD [Primary Care Provider] - Within 1 week (Please follow-up with your primary care for a referral to physical therapy to help manage her acute symptoms. If your symptoms are not improving you may need an outpatient MRI to further assess your pain.) Prescriptions: Hydrocodone/Acetaminophen [[place] 5-325 Tablet] 1 each PO Q6HR PRN #10 tablet PRN Reason: Pain diazePAM [Valium] 5 mg PO TID PRN #15 tablet PRN Reason: Spasms Naproxen 500 mg PO BID PRN #60 tablet PRN Reason: Pain Comments: Please return to the emergency department for any worsening or any concerns
[2018-06-07 13:46] VITALS: BP 126/85
== END 2018-06-07 13:45 | disposition home or self-care (01) ==
LOC: ED 12:03
DX: M54.40 Lumbago with sciatica, unspecified side (principal); I10 Essential (primary) hypertension; E78.00 Pure hypercholesterolemia, unspecified; E03.9 Hypothyroidism, unspecified; E11.9 Type 2 diabetes mellitus without complications; Z79.4 Long term (current) use of insulin; F17.200 Nicotine dependence, unspecified, uncomplicated
CPT/HCPCS: 99283; A9270

== ENCOUNTER 2018-06-13 08:00 | Outpatient (CLI) | payer MEDICAID ==
[2018-06-14 13:38] LABS: HIV AG/AB 4TH GEN NON-REACTIVE (NON-REACTIVE)
[2018-06-14 13:53] LABS: HEPATITIS C ANTIBODY NON-REACTIVE (NON-REACTIVE)
== END 2018-06-13 23:59 | disposition home or self-care (01) ==
LOC: LAB.N 08:00
PROVIDERS: ATTEND Physician Assistant Medical
DX: Z11.3 Encounter for screening for infections with a predominantly sexual mode of transmission (principal)
CPT/HCPCS: 36415; 81599; 86592; 86803; 87389

== ENCOUNTER 2018-09-25 17:43 | Outpatient (CLI) | payer MEDICAID | END 2018-09-25 17:44 | disposition EMS.NT | LOC: EMS 17:43 | PROVIDERS: ATTEND Surgery | DX: R51 Headache (principal) ==

== ENCOUNTER 2018-10-30 02:26 | Outpatient (CLI) | payer MEDICAID | END 2018-10-30 02:27 | disposition critical access hospital (66) | LOC: EMS 02:26 | PROVIDERS: ATTEND Surgery | DX: R10.11 Right upper quadrant pain (principal); R42 Dizziness and giddiness; R11.0 Nausea | CPT/HCPCS: A0425; A0429; A0999 ==

== ENCOUNTER 2018-10-30 02:44 | Emergency (ER) | payer MEDICAID ==
--- NOTE | 2018-10-30 03:34 | ED Physician Documentation ---
PD HPI ABD PAIN - Stated complaint Stated Complaint: ABD PX - Chief complaint Chief Complaint: Abd Pain - History obtained from History obtained from: Patient - History of Present Illness Timing - onset: Enter time (01:00), Today Timing - details: Abrupt onset Pain level now: 3 Quality: Pain Location: Epigastric Radiation: Lower back Improved by: Other (nothing) Worsened by: Other (no apparent exacerbating factors) Associated symptoms: No: Fever, Nausea, Vomiting, Diarrhea, Constipation, Dysuria Similar symptoms before: Has not had sx before Recently seen: Not recently seen Review of Systems Constitutional: reports: Reviewed and negative Eyes: reports: Reviewed and negative Ears: reports: Reviewed and negative Nose: reports: Reviewed and negative Throat: reports: Reviewed and negative Cardiac: denies: Chest pain / pressure, Palpitations, Pedal edema, Calf pain Respiratory: reports: Reviewed and negative GI: reports: Abdominal Pain. denies: Nausea, Vomiting, Constipation, Diarrhea : denies: Dysuria, Frequency PD PAST MEDICAL HISTORY - Past Medical History Cardiovascular: Hypertension, High cholesterol, Murmur Respiratory: None Neuro: None Endocrine/Autoimmune: Type 2 diabetes, HyPOthyroidism GI: None : Kidney stones HEENT: None Psych: Depression, Bipolar disorder Musculoskeletal: Chronic back pain Derm: Other - Past Surgical History Past Surgical History: Yes General: Appendectomy Ortho: ACL reconstruction - Present Medications Home Medications: Ambulatory Orders Medication Instructions Recorded Confirmed Lisinopril 5 mg PO DAILY 08/18/16 10/30/18 SITagliptin [Januvia] 100 mg PO DAILY 09/22/16 10/30/18 Aspirin [Aspirin EC] 81 mg PO DAILY 12/30/16 10/30/18 Insulin Glargine,Hum.rec.anlog 25 unit SUBQ QPM 10/27/17 10/30/18 [Basaglar Kwikpen U-100] Cyclobenzaprine [Flexeril] 10 mg PO QPM PRN 02/27/18 10/30/18 Gabapentin 600 mg PO TID 10/30/18 10/30/18 methIMAzole [Methimazole] 5 mg PO BID 10/30/18 10/30/18 - Allergies Allergies/Adverse Reactions: Allergies Allergy/AdvReac Type Severity Reaction Status Date / Time cinnamon Allergy Unknown Verified 06/07/18 12:09 pregabalin [From Lyrica] Allergy Unknown Verified 06/07/18 12:09 - Social History Does the pt smoke?: Yes Smoking Status: Current every day smoker Does the pt drink ETOH?: Yes Does the pt have substance abuse?: Yes - Immunizations Immunizations are current?: Yes - POLST Patient has POLST: No POLST Status: Full Code PD ED PE NORMAL - Vitals Vital signs reviewed: Yes - General General: Alert and oriented X 3, No acute distress, Well developed/nourished - Neck Neck: Supple, no meningeal sign - Cardiac Cardiac: RRR, No murmur, No gallop, No rub - Respiratory Respiratory: No respiratory distress, Clear bilaterally - Abdomen Abdomen: Normal bowel sounds, Soft, Non tender - Back Back: No CVA TTP - Derm Derm: Normal color, Warm and dry, No rash - Extremities Extremities: No edema Results - Vitals Vitals: Oxygen O2 Source Room air - EKG (time done) No standard instances Rate: Rate (enter#) (67) Rhythm: NSR [place]: Normal (borderline LAD) Intervals: Normal [place] QRS: Normal Ischemia: Normal ST segments - Labs Labs: Laboratory Tests 10/30/18 10/30/18 10/30/18 02:50 02:50 02:50 WBC 6.2 RBC 4.53 L Hgb 14.1 Hct 42.3 MCV 93.4 MCH 31.1 H MCHC 33.3 RDW 12.9 Plt Count 195 MPV 11.3 Neut # (Auto) 3.5 Lymph # (Auto) 1.6 [place] # (Auto) 0.9 Eos # (Auto) 0.2 Baso # (Auto) 0.0 Absolute Nucleated RBC 0.00 Nucleated RBC % 0.0 Sodium 140 Potassium 3.4 L Chloride 104 Carbon Dioxide 23 Anion Gap 13.0 BUN 18 Creatinine 0.7 Estimated GFR (MDRD) 117 Glucose 154 H Calcium 9.0 Total Bilirubin 0.7 AST 16 ALT 19 Alkaline Phosphatase 64 Troponin I < 0.04 Troponin I High Sens 3.2 Total Protein 6.8 Albumin 4.0 Globulin 2.8 Albumin/Globulin Ratio 1.4 Lipase 45 Urine Color Urine Clarity Urine pH Ur Specific [place] Urine Protein Urine Glucose (UA) Urine Ketones Urine Occult Blood Urine Nitrite Urine Bilirubin Urine Urobilinogen Ur Leukocyte Esterase Ur Microscopic Review Urine Culture Comments Urine Opiates Screen Ur Oxycodone Screen Urine Methadone Screen Ur Propoxyphene Screen Ur Barbiturates Screen Ur Tricyclics Screen Ur Phencyclidine Scrn Ur Amphetamine Screen U Methamphetamines Scrn U Benzodiazepines Scrn Urine Cocaine Screen U Cannabinoids Screen 10/30/18 04:00 WBC RBC Hgb Hct MCV MCH MCHC RDW Plt Count MPV Neut # (Auto) Lymph # (Auto) [place] # (Auto) Eos # (Auto) Baso # (Auto) Absolute Nucleated RBC Nucleated RBC % Sodium Potassium Chloride Carbon Dioxide Anion Gap BUN Creatinine Estimated GFR (MDRD) Glucose Calcium Total Bilirubin AST ALT Alkaline Phosphatase Troponin I Troponin I High Sens Total Protein Albumin Globulin Albumin/Globulin Ratio Lipase Urine Color YELLOW Urine Clarity CLEAR Urine pH 5.0 Ur Specific [place] <=1.005 Urine Protein NEGATIVE Urine Glucose (UA) NEGATIVE Urine Ketones NEGATIVE Urine Occult Blood NEGATIVE Urine Nitrite NEGATIVE Urine Bilirubin NEGATIVE Urine Urobilinogen 0.2 (NORMAL) Ur Leukocyte Esterase NEGATIVE Ur Microscopic Review NOT INDICATED Urine Culture Comments NOT INDICATED Urine Opiates Screen NEGATIVE Ur Oxycodone Screen NEGATIVE Urine Methadone Screen NEGATIVE Ur Propoxyphene Screen NEGATIVE Ur Barbiturates Screen NEGATIVE Ur Tricyclics Screen NEGATIVE Ur Phencyclidine Scrn NEGATIVE Ur Amphetamine Screen NEGATIVE U Methamphetamines Scrn NEGATIVE U Benzodiazepines Scrn NEGATIVE Urine Cocaine Screen NEGATIVE U Cannabinoids Screen NEGATIVE - Rads (name of study) chest xray Radiology: Prelim report reviewed, See rad report PD MEDICAL DECISION MAKING - ED course Complexity details: reviewed old records, reviewed results, re-evaluated rob kang, considered differential, d/w patient Departure - Departure Disposition: 01 Home, Self Care Clinical Impression: Chest pain Condition: Good Instructions: ED Chest Pain Atypical Unkn Cause Follow-Up: Thanh Guevara MD [Primary Care Provider] - Within 3 Days Discharge Date/Time: 10/30/18 05:43
[2018-10-30 04:03] LABS: BASOPHILS % (AUTO) 0.6 %; EOSINOPHILS # (AUTO) 0.2 10^3/uL (0.0-0.7); EOSINOPHILS % (AUTO) 2.6 %; HGB - HEMOGLOBIN 14.1 g/dL (14.0-18.0); LYMPHOCYTES # (AUTO) 1.6 10^3/uL (1.5-3.5); LYMPHOCYTES % (AUTO) 25.6 %; MEAN CORPUSCULAR HEMOGLOBIN 31.1 pg (27.0-31.0); MEAN CORPUSCULAR HGB CONC 33.3 g/dL (32.0-36.0); MEAN CORPUSCULAR VOLUME 93.4 fL (80.0-94.0); MEAN PLATELET VOLUME 11.3 fL (7.4-11.4); MONOCYTES # (AUTO) 0.9 10^3/uL (0.0-1.0); MONOCYTES % (AUTO) 14.5 %; NEUTROPHILS # (AUTO) 3.5 10^3/uL (1.5-6.6); NEUTROPHILS % (AUTO) 56.2 %; PLT - PLATELET COUNT 195 10^3/uL (130-450); RED BLOOD COUNT 4.53 10^6/uL (4.70-6.10); RED CELL DISTRIBUTION WIDTH 12.9 % (12.0-15.0); WHITE BLOOD COUNT 6.2 x10^3/uL (4.8-10.8)
[2018-10-30 04:06] LABS: MUDS CUTOFF CONCENTRATIONS CUTOFF CONC BELOW:
[2018-10-30 04:09] LABS: BILIRUBIN,URINE NEGATIVE (NEGATIVE); GLUCOSE, URINE (UA) NEGATIVE (NEGATIVE); KETONES,URINE (UA) NEGATIVE (NEGATIVE); LEUKOCYTE ESTERASE, URINE NEGATIVE (NEGATIVE); NITRITE,URINE NEGATIVE (NEGATIVE); OCCULT BLOOD,URINE NEGATIVE (NEGATIVE); PROTEIN,URINE NEGATIVE (NEGATIVE); UROBILINOGEN,URINE 0.2 (NORMAL) E.U./dL (NORMAL)
[2018-10-30 04:10] LABS: CLARITY,URINE CLEAR (CLEAR)
[2018-10-30 04:14] LABS: ALBUMIN/GLOBULIN RATIO 1.4 (1.0-2.2); BILIRUBIN,TOTAL 0.7 mg/dL (0.2-1.0); CREATININE 0.7 mg/dL (0.6-1.2); TOTAL PROTEIN 6.8 g/dL (6.7-8.2)
[2018-10-30 04:17] LABS: COCAINE SCREEN URINE NEGATIVE (NEGATIVE); METHAMPHETAMINES SCREEN, URINE NEGATIVE (NEGATIVE); OPIATE SCREEN, URINE NEGATIVE (NEGATIVE)
[2018-10-30 04:18] LABS: TROPONIN I < 0.04 ng/mL (<0.49)
[2018-10-30 04:18] LABS: AMPHETAMINE SCREEN,URINE NEGATIVE (NEGATIVE); BENZODIAZEPINES SCREEN, URINE NEGATIVE (NEGATIVE); METHADONE SCREEN, URINE NEGATIVE (NEGATIVE); OXYCODONE SCREEN, URINE NEGATIVE (NEGATIVE); PROPOXYPHENE SCREEN, URINE NEGATIVE (NEGATIVE); TRICYCLIC ANTIDEPRESSANT,URINE NEGATIVE (NEGATIVE)
--- NOTE | 2018-10-30 04:38 | XRAY Report ---
Reason: chest pain Procedure Date: 10/30/2018 Accession Number: [id number] / [id number] Procedure: XR - Chest 2 View X-Ray CPT Code: 38793 FULL RESULT: EXAM: CHEST RADIOGRAPHY EXAM DATE: 10/30/2018 04:13 AM. CLINICAL HISTORY: Chest pain. COMPARISON: CHEST 2 VIEW 11/18/2017 1:46 AM CHEST ANGIO 10/20/2016 10:28 PM. TECHNIQUE: 2 views. FINDINGS: Lungs/Pleura: No focal opacities evident. No pleural effusion. No pneumothorax. Normal volumes. Mediastinum: Heart and mediastinal contours are unremarkable. Other: Previous cervical surgery. IMPRESSION: No acute process seen in the chest. RADIA
[2018-10-30] MEDS ORDERED: IBUPROFEN 600 MG TABLET PO STA (05:15)
[2018-10-30] MEDS ORDERED: oxyCODONE 5 MG TABLET PO STA (05:15)
[2018-10-30 05:36] VITALS: BP 107/77
== END 2018-10-30 05:43 | disposition home or self-care (01) ==
LOC: EDUNIT# → ED 02:44
DX: R07.9 Chest pain, unspecified (principal); I10 Essential (primary) hypertension; E11.9 Type 2 diabetes mellitus without complications; Z79.4 Long term (current) use of insulin; F17.200 Nicotine dependence, unspecified, uncomplicated
CPT/HCPCS: 36415; 71046; 80053; 80306; 81003; 83690; 84484; 85025; 99283; 99284; A9270; 81001; 87086

== ENCOUNTER 2018-11-15 10:07 | Outpatient (CLI) | payer MEDICAID ==
--- NOTE | 2018-11-16 11:09 | XRAY Report ---
Reason: ANKLE PAIN Procedure Date: 11/15/2018 Accession Number: [id number] / [id number] Procedure: XRN - Ankle 3 View LT CPT Code: FULL RESULT: EXAM: LEFT ANKLE RADIOGRAPHY EXAM DATE: 11/15/2018 10:16 AM. CLINICAL HISTORY: ANKLE PAIN. Rolled the ankle and 8010 2018 and heard a pop. COMPARISON: None. TECHNIQUE: 3 views. FINDINGS: Bones: Small calcaneal spurs. No fractures or bone lesions. Hypertrophy at the proximal dorsal margin of the navicular is likely developmental. Degenerative change or old, healed fracture less likely. Joints: No effusion. No subluxations. The ankle mortise is normally aligned. Soft Tissues: No definite soft tissue swelling. IMPRESSION: No acute abnormality of the ankle demonstrate apparent RADIA
== END 2018-11-15 10:08 | disposition home or self-care (01) ==
LOC: DI.N 10:07
PROVIDERS: ATTEND Family Medicine
DX: M25.572 Pain in left ankle and joints of left foot (principal)

== ENCOUNTER 2019-01-25 00:44 | Outpatient (CLI) | payer MEDICAID | END 2019-01-25 00:45 | disposition critical access hospital (66) | LOC: EMS 00:44 | PROVIDERS: ATTEND Surgery | DX: R07.9 Chest pain, unspecified (principal); R55 Syncope and collapse | CPT/HCPCS: A0425; A0427; A0999 ==

== ENCOUNTER 2019-01-25 01:01 | Emergency (ER) | payer MEDICAID ==
[2019-01-25 01:33] LABS: BASOPHILS % (AUTO) 0.6 %; EOSINOPHILS # (AUTO) 0.2 10^3/uL (0.0-0.7); EOSINOPHILS % (AUTO) 2.9 %; HGB - HEMOGLOBIN 15.4 g/dL (14.0-18.0); LYMPHOCYTES # (AUTO) 2.4 10^3/uL (1.5-3.5); LYMPHOCYTES % (AUTO) 32.7 %; MEAN CORPUSCULAR HEMOGLOBIN 29.9 pg (27.0-31.0); MEAN CORPUSCULAR HGB CONC 32.5 g/dL (32.0-36.0); MEAN PLATELET VOLUME 11.3 fL (7.4-11.4); MONOCYTES % (AUTO) 13.2 %; NEUTROPHILS # (AUTO) 3.6 10^3/uL (1.5-6.6); PLT - PLATELET COUNT 209 10^3/uL (130-450); RED BLOOD COUNT 5.15 10^6/uL (4.70-6.10); RED CELL DISTRIBUTION WIDTH 12.6 % (12.0-15.0); WHITE BLOOD COUNT 7.3 x10^3/uL (4.8-10.8)
[2019-01-25 01:39] LABS: PT - PROTHROMBIN TIME 11.7 secs (9.9-12.6)
[2019-01-25 01:45] LABS: ALBUMIN 4.7 g/dL (3.2-5.5); ALBUMIN/GLOBULIN RATIO 1.5 (1.0-2.2); ALKALINE PHOSPHATASE 81 IU/L (42-121); ALT ALANINE AMINOTRANSFERASE 22 IU/L (10-60); AST ASPARTATE AMINOTRANSFERASE 19 IU/L (10-42); BILIRUBIN,TOTAL 0.4 mg/dL (0.2-1.0); BUN - BLOOD UREA NITROGEN 12 mg/dL (6-20); CALCIUM 9.4 mg/dL (8.5-10.3); CARBON DIOXIDE - CO2 26 mmol/L (21-32); CHLORIDE 104 mmol/L (101-111); CREATININE 0.8 mg/dL (0.6-1.2); GFR - MDRD 100 (>89); GLUCOSE 145 mg/dL (70-100); LIPASE 25 U/L (22-51); SODIUM 139 mmol/L (135-145); TOTAL PROTEIN 7.9 g/dL (6.7-8.2)
[2019-01-25] MEDS ORDERED: IOVERSOL 320 100 ML VIAL IVP ONE ×2 (01:55→02:09)
[2019-01-25] MEDS ORDERED: POTASSIUM CHLORIDE 20 MEQ TABLET PO STA (02:13)
[2019-01-25 02:28] LABS: MUDS CUTOFF CONCENTRATIONS CUTOFF CONC BELOW:
[2019-01-25 02:29] LABS: BILIRUBIN,URINE NEGATIVE (NEGATIVE); GLUCOSE, URINE (UA) 100 mg/dL (NEGATIVE); KETONES,URINE (UA) NEGATIVE (NEGATIVE); LEUKOCYTE ESTERASE, URINE NEGATIVE (NEGATIVE); NITRITE,URINE NEGATIVE (NEGATIVE); OCCULT BLOOD,URINE NEGATIVE (NEGATIVE); PH,URINE 5.5 PH (5.0-7.5); PROTEIN,URINE NEGATIVE (NEGATIVE); UROBILINOGEN,URINE 0.2 (NORMAL) E.U./dL (NORMAL)
[2019-01-25 02:30] LABS: CLARITY,URINE CLEAR (CLEAR)
--- NOTE | 2019-01-25 02:30 | CT Report ---
Reason: chest pain, soa, tachycardia Procedure Date: 01/25/2019 Accession Number: [id number] / [id number] Procedure: CT - ANGIO CHEST W/WO CPT Code: FULL RESULT: EXAM: CT ANGIOGRAM CHEST EXAM DATE: 01/25/2019 02:14 AM. CLINICAL HISTORY: Chest pain, soa, tachycardia. COMPARISON: CHEST ANGIO 10/20/2016 10:28 PM. TECHNIQUE: Routine helical imaging was performed through the chest in the pulmonary arterial phase. IV Contrast: OPTI 320 80ML. Reconstructions: Coronal 3-D MIP reconstructions.Sagittal and coronal. In accordance with CT protocol optimization, one or more of the following dose reduction techniques were utilized for this exam: automated exposure control, adjustment of mA and/or KV based on patient size, or use of iterative reconstructive technique. FINDINGS: Pulmonary Arteries: Diagnostic quality: Adequate through the segmental arteries. No evidence for acute or chronic pulmonary emboli. RV/LV is within normal limits. There is no interventricular septal bowing. There is no reflux of contrast material in the IVC. Lungs/Pleura: No consolidation, nodules, or edema. No effusions or pneumothorax. Mediastinum: The heart is borderline enlarged similar to the prior study. Thoracic Aorta: Unremarkable. Upper Abdomen: Unremarkable. Other: None. IMPRESSION: 1. No evidence for pulmonary emboli. 2. No infiltrates. RADIA
--- NOTE | 2019-01-25 02:35 | ED Physician Documentation ---
PD HPI CHEST PAIN - Stated complaint Stated Complaint: CP - Chief complaint Chief Complaint: Cardiac - History obtained from History obtained from: Patient - History of Present Illness Timing - onset: Enter time (2144), Today Timing - onset during: Rest Timing - duration: Minutes Timing - details: Abrupt onset Quality: Tightness, Sharp Location: Substernal, Left chest Radiation: Back Improved by: Nothing Worsened by: Inspiration, Movement, Palpation Associated symptoms: Shortness of air, Feeling faint / dizzy, General Weakness Similar symptoms before: Diagnosis (facticious disorder) Recently seen: Not recently seen - Additional information Additional information: 53-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 The patient indicates that he felt a "swoosh" from his right calf go directly into his chest. He felt that after that he had a hard time breathing and developed acute chest pain. Review of Systems Constitutional: denies: Fever, Chills Eyes: denies: Decreased vision Ears: denies: Ear pain Nose: denies: Congestion Throat: denies: Sore throat Cardiac: reports: Chest pain / pressure, Palpitations, Calf pain Respiratory: reports: Dyspnea. denies: Cough GI: denies: Vomiting : denies: Dysuria PD PAST MEDICAL HISTORY - Past Medical History Cardiovascular: Hypertension, High cholesterol, Murmur Respiratory: None Neuro: None Endocrine/Autoimmune: Type 2 diabetes, HyPOthyroidism GI: None : Kidney stones HEENT: None Psych: Depression, Bipolar disorder Musculoskeletal: Chronic back pain Derm: Other - Past Surgical History Past Surgical History: Yes General: Appendectomy Ortho: ACL reconstruction - Present Medications Home Medications: Ambulatory Orders Medication Instructions Recorded Confirmed Lisinopril 5 mg PO DAILY 08/18/16 10/30/18 SITagliptin [Januvia] 100 mg PO DAILY 09/22/16 10/30/18 Aspirin [Aspirin EC] 81 mg PO DAILY 12/30/16 10/30/18 Insulin Glargine,Hum.rec.anlog 25 unit SUBQ QPM 10/27/17 10/30/18 [Basaglar Kwikpen U-100] Cyclobenzaprine [Flexeril] 10 mg PO QPM PRN 02/27/18 10/30/18 Gabapentin 600 mg PO TID 10/30/18 10/30/18 methIMAzole [Methimazole] 5 mg PO BID 10/30/18 10/30/18 - Allergies Allergies/Adverse Reactions: Allergies Allergy/AdvReac Type Severity Reaction Status Date / Time cinnamon Allergy Unknown Verified 06/07/18 12:09 pregabalin [From Lyrica] Allergy Unknown Verified 06/07/18 12:09 - Social History Does the pt smoke?: Yes Smoking Status: Current every day smoker Does the pt drink ETOH?: Yes Does the pt have substance abuse?: Yes - Immunizations Immunizations are current?: Yes - POLST Patient has POLST: No POLST Status: Full Code PD ED PE NORMAL - Vitals Vital signs reviewed: Yes (tachycardia and hypertension) - General General: Other (The patient is speaking quietly and concerned. grasping his mid chest and stating that he feels like he is going to pass out. 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 ) Results - Vitals Vitals: Vital Signs - 24 hr 01/25/19 01/25/19 01/25/19 01:00 01:29 01:39 Temperature 36.6 C Heart Rate 120 H 90 107 H Respiratory 17 11 L 23 Rate Blood Pressure 149/114 H 136/92 H O2 Saturation 99 95 95 01/25/19 01/25/19 02:14 02:49 Temperature Heart Rate 94 87 Respiratory 21 16 Rate Blood Pressure 133/96 H 144/99 H O2 Saturation 100 97 Oxygen O2 Source Room air - EKG (time done) 0106 Rate: Rate (enter#) (118) Rhythm: Sinus tachycardia [place]: LAD Ischemia: Normal ST segments Compare to prior EKG: Changed from prior EKG (SPT 10-30-2018 rate has increased) Computer interpretation: Agree with computer - Labs Labs: Laboratory Tests 01/25/19 01/25/19 01/25/19 01:20 01:20 01:20 WBC 7.3 RBC 5.15 Hgb 15.4 Hct 47.4 MCV 92.0 MCH 29.9 MCHC 32.5 RDW 12.6 Plt Count 209 MPV 11.3 Neut # (Auto) 3.6 Lymph # (Auto) 2.4 [place] # (Auto) 1.0 Eos # (Auto) 0.2 Baso # (Auto) 0.0 Absolute Nucleated RBC 0.00 Nucleated RBC % 0.0 PT 11.7 INR 1.0 Sodium 139 Potassium 3.2 L Chloride 104 Carbon Dioxide 26 Anion Gap 9.0 BUN 12 Creatinine 0.8 Estimated GFR (MDRD) 100 Glucose 145 H Lactic Acid Calcium 9.4 Total Bilirubin 0.4 AST 19 ALT 22 Alkaline Phosphatase 81 Total Protein 7.9 Albumin 4.7 Globulin 3.2 Albumin/Globulin Ratio 1.5 Lipase 25 Urine Color Urine Clarity Urine pH Ur Specific [place] Urine Protein Urine Glucose (UA) Urine Ketones Urine Occult Blood Urine Nitrite Urine Bilirubin Urine Urobilinogen Ur Leukocyte Esterase Ur Microscopic Review Urine Culture Comments Urine Opiates Screen Ur Oxycodone Screen Urine Methadone Screen Ur Propoxyphene Screen Ur Barbiturates Screen Ur Tricyclics Screen Ur Phencyclidine Scrn Ur Amphetamine Screen U Methamphetamines Scrn U Benzodiazepines Scrn Urine Cocaine Screen U Cannabinoids Screen Ethyl Alcohol < 5.0 01/25/19 01/25/19 01:20 02:20 WBC RBC Hgb Hct MCV MCH MCHC RDW Plt Count MPV Neut # (Auto) Lymph # (Auto) [place] # (Auto) Eos # (Auto) Baso # (Auto) Absolute Nucleated RBC Nucleated RBC % PT INR Sodium Potassium Chloride Carbon Dioxide Anion Gap BUN Creatinine Estimated GFR (MDRD) Glucose Lactic Acid 1.6 Calcium Total Bilirubin AST ALT Alkaline Phosphatase Total Protein Albumin Globulin Albumin/Globulin Ratio Lipase Urine Color YELLOW Urine Clarity CLEAR Urine pH 5.5 Ur Specific [place] 1.015 Urine Protein NEGATIVE Urine Glucose (UA) 100 H Urine Ketones NEGATIVE Urine Occult Blood NEGATIVE Urine Nitrite NEGATIVE Urine Bilirubin NEGATIVE Urine Urobilinogen 0.2 (NORMAL) Ur Leukocyte Esterase NEGATIVE Ur Microscopic Review NOT INDICATED Urine Culture Comments NOT INDICATED Urine Opiates Screen NEGATIVE Ur Oxycodone Screen NEGATIVE Urine Methadone Screen NEGATIVE Ur Propoxyphene Screen NEGATIVE Ur Barbiturates Screen NEGATIVE Ur Tricyclics Screen POSITIVE H Ur Phencyclidine Scrn NEGATIVE Ur Amphetamine Screen NEGATIVE U Methamphetamines Scrn NEGATIVE U Benzodiazepines Scrn NEGATIVE Urine Cocaine Screen NEGATIVE U Cannabinoids Screen POSITIVE H Ethyl Alcohol - Rads (name of study) CTA chest Radiology: Prelim report reviewed (Impression: 1. No evidence for pulmonary emboli. No infiltrates.), EMP read indepedently, See rad report Procedures - IVC sono (time) 0115 Bedside IVC sono: IVC measures (cm) (1.06), Dehydration (est 1 liter deficit) PD MEDICAL DECISION MAKING - ED course Complexity details: reviewed old records, reviewed results, re-evaluated patient, considered differential, d/w patient ED course: 53-year-old male has a dramatic presentation into the emergency department with tachycardia and hypertension in the complaint of chest pain. He is complaint of a switch from his ankle to into his chest was concerning for pulmonary embolism and an angiogram of the chest was obtained. This was an entirely normal study. His blood work was entirely normal as well. He did have mildly low potassium and was provided oral potassium. He was also mildly dehydrated and given a liter of saline. His heart rate returned to normal. The patient's presentation was concerning and dramatic and in the end he had no significant abnormality. He is discharged to home. Departure - Departure Disposition: 01 Home, Self Care Clinical Impression: Dehydration, Anxiety Condition: Stable Instructions: ED Dehydration, ED Panic Attack Follow-Up: [facility] [Provider Group]
[2019-01-25 02:39] LABS: AMPHETAMINE SCREEN,URINE NEGATIVE (NEGATIVE); BENZODIAZEPINES SCREEN, URINE NEGATIVE (NEGATIVE); COCAINE SCREEN URINE NEGATIVE (NEGATIVE); METHAMPHETAMINES SCREEN, URINE NEGATIVE (NEGATIVE); OPIATE SCREEN, URINE NEGATIVE (NEGATIVE); TRICYCLIC ANTIDEPRESSANT,URINE POSITIVE (NEGATIVE)
[2019-01-25 02:40] LABS: METHADONE SCREEN, URINE NEGATIVE (NEGATIVE); OXYCODONE SCREEN, URINE NEGATIVE (NEGATIVE); PROPOXYPHENE SCREEN, URINE NEGATIVE (NEGATIVE)
[2019-01-25] MEDS ORDERED: SODIUM CHLORIDE 0.9% 1,000 ML IV ONE (03:02)
[2019-01-25 03:04] VITALS: BP 119/87
== END 2019-01-25 03:20 | disposition home or self-care (01) ==
LOC: EDUNIT# → ED 01:01
DX: R07.89 Other chest pain (principal); E86.0 Dehydration; E87.6 Hypokalemia; R00.0 Tachycardia, unspecified; I10 Essential (primary) hypertension; F41.9 Anxiety disorder, unspecified; E11.9 Type 2 diabetes mellitus without complications; Z79.4 Long term (current) use of insulin; Z79.82 Long term (current) use of aspirin; F17.200 Nicotine dependence, unspecified, uncomplicated
CPT/HCPCS: 36415; 71275; 80053; 80306; 80320; 81003; 83605; 83690; 85025; 85610; 93005; 96360; 99284; A9270; Q9967; 81001; 87086

== ENCOUNTER 2019-03-15 21:29 | Outpatient (CLI) | payer MEDICAID | END 2019-03-15 21:30 | disposition critical access hospital (66) | LOC: EMS 21:29 | PROVIDERS: ATTEND Surgery | DX: R07.9 Chest pain, unspecified (principal); M54.89 Other dorsalgia | CPT/HCPCS: A0425; A0427; A0999 ==

== ENCOUNTER 2019-03-15 21:46 | Emergency (ER) | payer MEDICAID ==
[2019-03-15] MEDS ORDERED: SODIUM CHLORIDE 0.9% 500 ML IV ONE (21:52)
[2019-03-15] MEDS ORDERED: ONDANSETRON 4 MG/2 ML VIAL ONE (21:53)
[2019-03-15] MEDS ORDERED: ONDANSETRON 4 MG/2 ML VIAL IVP STA (21:56)
[2019-03-15 22:03] LABS: BASOPHILS # (AUTO) 0.1 10^3/uL (0.0-0.1); BASOPHILS % (AUTO) 0.4 %; EOSINOPHILS # (AUTO) 0.1 10^3/uL (0.0-0.7); EOSINOPHILS % (AUTO) 0.8 %; HGB - HEMOGLOBIN 16.2 g/dL (14.0-18.0); LYMPHOCYTES # (AUTO) 1.6 10^3/uL (1.5-3.5); LYMPHOCYTES % (AUTO) 13.9 %; MEAN CORPUSCULAR HEMOGLOBIN 31.1 pg (27.0-31.0); MEAN CORPUSCULAR HGB CONC 34.5 g/dL (32.0-36.0); MEAN CORPUSCULAR VOLUME 90.2 fL (80.0-94.0); MONOCYTES # (AUTO) 1.2 10^3/uL (0.0-1.0); MONOCYTES % (AUTO) 10.8 %; NEUTROPHILS # (AUTO) 8.3 10^3/uL (1.5-6.6); NEUTROPHILS % (AUTO) 73.6 %; PLT - PLATELET COUNT 208 10^3/uL (130-450); RED BLOOD COUNT 5.21 10^6/uL (4.70-6.10); RED CELL DISTRIBUTION WIDTH 12.1 % (12.0-15.0); WHITE BLOOD COUNT 11.3 x10^3/uL (4.8-10.8)
--- NOTE | 2019-03-15 22:15 | ED Physician Documentation ---
History of Present Illness - Stated complaint Stated Complaint: CP - Chief complaint Chief Complaint: Cardiac - Additonal information Additional information: This is a 53-year-old male with a history of hypertension, high cholesterol, type 2 diabetes, bipolar disorder, who presents with left shoulder and Chest pain. Patient states that he has had pain around his left shoulder intermittently for several weeks, but tonight he had Sudden onset of pain located over his anterior chest and his left shoulder. This is associated with shortness of breath. He denies any hemoptysis, no fever. No tingling or numbness. Review of Systems Constitutional: reports: Fever Nose: denies: Rhinorrhea / runny nose Cardiac: reports: Chest pain / pressure Respiratory: reports: Dyspnea GI: denies: Abdominal Pain : denies: Dysuria Skin: denies: Rash Musculoskeletal: reports: Extremity pain Neurologic: reports: Generalized weakness PD PAST MEDICAL HISTORY - Past Medical History Cardiovascular: Hypertension, High cholesterol, Murmur Respiratory: None Neuro: None Endocrine/Autoimmune: Type 2 diabetes, HyPOthyroidism GI: None : Kidney stones HEENT: None Psych: Depression, Bipolar disorder Musculoskeletal: Chronic back pain Derm: Other - Past Surgical History Past Surgical History: Yes General: Appendectomy Ortho: ACL reconstruction - Present Medications Home Medications: Ambulatory Orders Medication Instructions Recorded Confirmed Lisinopril 5 mg PO DAILY 08/18/16 03/16/19 SITagliptin [Januvia] 100 mg PO DAILY 09/22/16 03/16/19 Aspirin [Aspirin EC] 81 mg PO DAILY 12/30/16 03/16/19 Insulin Glargine,Hum.rec.anlog 25 unit SUBQ QPM 10/27/17 03/16/19 [Basaglar Kwikpen U-100] Cyclobenzaprine [Flexeril] 10 mg PO QPM PRN 02/27/18 03/16/19 Gabapentin 600 mg PO TID 10/30/18 03/16/19 methIMAzole [Methimazole] 5 mg PO BID 10/30/18 03/16/19 - Allergies Allergies/Adverse Reactions: Allergies Allergy/AdvReac Type Severity Reaction Status Date / Time cinnamon Allergy Unknown Verified 03/16/19 00:26 pregabalin [From Lyrica] Allergy Unknown Verified 03/16/19 00:26 - Social History Does the pt smoke?: Yes Smoking Status: Current every day smoker Does the pt drink ETOH?: Yes Does the pt have substance abuse?: Yes - Immunizations Immunizations are current?: Yes - POLST Patient has POLST: No POLST Status: Full Code PD ED PE NORMAL - General General: Other (Alert, uncomfortable appearing male) - HEENT HEENT: Atraumatic, PERRL - Cardiac Cardiac: Other (Tachycardic, regular rhythm. No murmurs appreciated) - Respiratory Respiratory: No respiratory distress, Clear bilaterally - Abdomen Abdomen: Normal bowel sounds, Non tender, Non distended - Extremities Extremities: No deformity, Other (Mild tenderness of the left deltoid, full active range of motion. Neurovascularly intact bilateral upper and lower extremities) - Neuro Neuro: Alert and oriented X 3, product planner 2-12 intact, No motor deficit, No sensory deficit, Normal speech Results - Vitals Vitals: Vital Signs - 24 hr 03/15/19 03/15/19 03/15/19 21:49 21:53 22:01 Temperature 36.8 C Heart Rate 132 H 114 H Respiratory 22 19 Rate Blood Pressure 157/109 H 132/102 H Blood Pressure 131/97 H [Left] Blood Pressure 157/109 H [Right] O2 Saturation 97 95 03/15/19 03/16/19 03/16/19 23:48 00:22 01:12 Temperature 37.1 C Heart Rate 98 105 H 99 Respiratory 20 24 15 Rate Blood Pressure 130/91 H 129/100 H 119/89 H Blood Pressure [Left] Blood Pressure [Right] O2 Saturation 97 97 98 03/16/19 03/16/19 02:06 02:48 Temperature 36.4 C L Heart Rate 94 96 Respiratory 24 20 Rate Blood Pressure 110/86 H 118/84 H Blood Pressure [Left] Blood Pressure [Right] O2 Saturation 97 99 Oxygen O2 Source Room air Oxygen Flow Rate 3 - EKG (time done) 21:56 Other comments: Other comments (Rate 110, rhythm sinus tachycardia, there is no ST segment elevation or depression. There is some T wave flattening in leads III and V2. Poor R wave progression. Borderline left axis deviation) 22:45 Other comments: Other comments (Rate 125, rhythm sinus tachycardia, there is no ST segment elevation or depression. There is some T wave flattening in V2 and lead III. There is poor R wave progression, and left axis deviation) - Labs Labs: Laboratory Tests 03/15/19 03/15/19 03/15/19 21:59 21:59 21:59 WBC 11.3 H RBC 5.21 Hgb 16.2 Hct 47.0 MCV 90.2 MCH 31.1 H MCHC 34.5 RDW 12.1 Plt Count 208 MPV 11.0 Neut # (Auto) 8.3 H Lymph # (Auto) 1.6 [place] # (Auto) 1.2 H Eos # (Auto) 0.1 Baso # (Auto) 0.1 Absolute Nucleated RBC 0.00 Nucleated RBC % 0.0 D-Dimer < 200.0 L Sodium 136 Potassium 3.9 Chloride 101 Carbon Dioxide 24 Anion Gap 11.0 BUN 11 Creatinine 0.9 Estimated GFR (MDRD) 88 L Glucose 251 H Calcium 9.2 Total Bilirubin 0.6 AST 22 ALT 22 Alkaline Phosphatase 83 Troponin I High Sens Total Protein 7.9 Albumin 4.7 Globulin 3.2 Albumin/Globulin Ratio 1.5 Lipase 32 03/15/19 03/16/19 21:59 01:45 WBC RBC Hgb Hct MCV MCH MCHC RDW Plt Count MPV Neut # (Auto) Lymph # (Auto) [place] # (Auto) Eos # (Auto) Baso # (Auto) Absolute Nucleated RBC Nucleated RBC % D-Dimer Sodium Potassium Chloride Carbon Dioxide Anion Gap BUN Creatinine Estimated GFR (MDRD) Glucose Calcium Total Bilirubin AST ALT Alkaline Phosphatase Troponin I High Sens < 2.3 L 2.8 Total Protein Albumin Globulin Albumin/Globulin Ratio Lipase - Rads (name of study) CXR Radiology: Other (No acute cardiopulmonary abnormality) CT angio Radiology: Other (Normal CT pulmonary angiogram) PD MEDICAL DECISION MAKING - ED course Complexity details: considered differential (ACS, dysrhythmia, PE, aortic dissection, electrolyte abnormality, anxiety, musculoskeletal pain) ED course: On arrival patient is tachycardic, appears uncomfortable, is also hypertensive. His EKG shows sinus tachycardia without convincing signs of dysrhythmia or ischemia. Labs are drawn and patient was placed on the monitor, about 20 minutes after arrival patient complained of worsening pain and states that it was becoming difficult to breathe. He was given a tablet of sublingual nitroglycerin, and a repeat EKG was obtained which showed no changes from prior. Chest x-ray showed no acute abnormality, he was taken to CT and a CT angiogram revealed no signs of vascular pathology or pulmonary embolism, no pneumonia. La bs include 2 normal Troponins drawn several hours apart, a negative d-dimer making dissection highly unlikely, and unremarkable blood counts. Reviewing patient's records, he is actually come to the emergency department many times with chest pain, and had a very similar presentation last month, for which she received a CT and cardiac work-up all of which were unremarkable. He does have a psychiatric history and this may be playing a role in his presentations. I reexamined patient and he was feeling well, sitting comfortably, with a normal mental status, and unremarkable vital signs. I discussed the results with the patient, and explained that while we do not see signs of acute pathology today, he is to follow closely with his primary care provider. He agreed and was eager to go home, he was discharged home in care of his family. Departure - Departure Disposition: 01 Home, Self Care Clinical Impression: Chest pain Qualifiers: Chest pain type: unspecified Qualified Code(s): R07.9 - Chest pain, unspecified Condition: Good Instructions: ED Chest Pain Atypical Unkn Cause Follow-Up: Genaro Esqueda PA-C [Primary Care Provider] - Within 1 week Comments: You were seen today for chest and shoulder pain, I do not see an obvious cause of your symptoms on our imaging and labs today. Please follow-up with your primary care provider and if your symptoms are worsening or you are having new concerning symptoms, return to the emergency department Discharge Date/Time: 03/16/19 02:50
[2019-03-15 22:16] LABS: ALBUMIN 4.7 g/dL (3.2-5.5); ALBUMIN/GLOBULIN RATIO 1.5 (1.0-2.2); BILIRUBIN,TOTAL 0.6 mg/dL (0.2-1.0); CALCIUM 9.2 mg/dL (8.5-10.3); CREATININE 0.9 mg/dL (0.6-1.2); TOTAL PROTEIN 7.9 g/dL (6.7-8.2)
[2019-03-15] MEDS ORDERED: IOVERSOL 320 100 ML VIAL IVP ONE ×2 (22:21→22:52)
[2019-03-15] MEDS ORDERED: NITROGLYCERIN SL 0.4 MG TABLET SL ONE (22:29)
[2019-03-15] MEDS ORDERED: NITROGLYCERIN SL 0.4 MG TABLET SL STA (22:30)
--- NOTE | 2019-03-15 22:54 | XRAY Report ---
Reason: chest pain Procedure Date: 03/15/2019 Accession Number: [id number] / [id number] Procedure: XR - Chest 1 View X-Ray CPT Code: 16221 Final Report FULL RESULT: EXAM: CHEST RADIOGRAPHY EXAM DATE: 03/15/2019 10:35 PM. CLINICAL HISTORY: Chest pain. COMPARISON: CHEST 2 VIEW 10/30/2018 4:05 AM. TECHNIQUE: 1 view. FINDINGS: Lungs/Pleura: Lung volume low. No acute infiltrates. Mediastinum: The heart on these views are unremarkable. There is no lymphadenopathy. Other: None. IMPRESSION: 1. No infiltrates. RADIA
--- NOTE | 2019-03-15 23:06 | CT Report ---
Reason: CHEST PAIN Procedure Date: 03/15/2019 Accession Number: [id number] / [id number] Procedure: CT - ANGIO CHEST W/WO CPT Code: Final Report FULL RESULT: EXAM: CT ANGIOGRAM CHEST EXAM DATE: 03/15/2019 10:49 PM. CLINICAL HISTORY: CHEST PAIN. COMPARISON: CHEST ANGIO 01/25/2019 2:00 AM. TECHNIQUE: Routine helical imaging was performed through the chest in the pulmonary arterial phase. IV Contrast: OPTI 320 80ML. Reconstructions: Coronal 3-D MIP reconstructions.Sagittal and coronal. In accordance with CT protocol optimization, one or more of the following dose reduction techniques were utilized for this exam: automated exposure control, adjustment of mA and/or KV based on patient size, or use of iterative reconstructive technique. FINDINGS: Pulmonary Arteries: Diagnostic quality: Adequate through the segmental arteries. No evidence for acute or chronic pulmonary emboli. RV/LV is within normal limits. There is no interventricular septal bowing. There is no reflux of contrast material in the IVC. Lungs/Pleura: No consolidation, nodules, or edema. No effusions or pneumothorax. Mediastinum: Normal. No cardiac enlargement or adenopathy. Thoracic Aorta: Unremarkable. Upper Abdomen: Unremarkable. Other: None. IMPRESSION: Normal pulmonary CT angiogram. No pulmonary emboli. RADIA
[2019-03-15] MEDS ORDERED: LORazepam 2 MG/ML VIAL IVP STA (23:33)
[2019-03-16 02:49] VITALS: BP 118/84
== END 2019-03-16 02:50 | disposition home or self-care (01) ==
LOC: EDUNIT# → ED 21:46
DX: R07.9 Chest pain, unspecified (principal); R00.0 Tachycardia, unspecified; I10 Essential (primary) hypertension; M25.512 Pain in left shoulder; E11.9 Type 2 diabetes mellitus without complications; Z79.4 Long term (current) use of insulin; F31.9 Bipolar disorder, unspecified; Z79.82 Long term (current) use of aspirin; F17.200 Nicotine dependence, unspecified, uncomplicated
CPT/HCPCS: 36415; 71045; 71275; 80053; 83690; 84484; 85025; 85379; 93005; 96361; 96374; 96375; 99284; A9270; J2060; Q9967

== ENCOUNTER 2019-03-22 03:55 | Outpatient (CLI) | payer MEDICAID | END 2019-03-22 03:56 | disposition critical access hospital (66) | LOC: EMS 03:55 | PROVIDERS: ATTEND Surgery | DX: M25.512 Pain in left shoulder (principal) | CPT/HCPCS: A0425; A0429 ==

== ENCOUNTER 2019-03-22 04:11 | Emergency (ER) | payer MEDICAID ==
[2019-03-22 04:21] VITALS: BP 134/103
[2019-03-22] MEDS ORDERED: CHERRY SYRUP 10 ML UDC PO ONE (04:24)
[2019-03-22] MEDS ORDERED: DEXAMETHASONE 10 MG/ML VIAL PO STA (04:24)
--- NOTE | 2019-03-22 04:32 | ED Physician Documentation ---
PD HPI UPPER EXT INJURY - Stated complaint Stated Complaint: LEFT SHOULDER ROTATOR CUFF PAIN - Chief complaint Chief Complaint: Ext Problem - History obtained from History obtained from: Patient - History of Present Illness Location: Left, Shoulder Type of injury: Other (over use) Where injury occurred: Home Timing - onset: How many days ago (2) Timing - duration: Days (2) Timing - details: Gradual onset, Still present Improved by: Rest, Ice, Immobilization Worsened by: Moving, Palpating Associated symptoms: Weakness, Numbness, Tingling Contributing factors: No: Anticoagulated Similar symptoms before: Diagnosis (shloulder strain) Recently seen: Emergency Dept - Additonal information Additional information: 53-year-old male with a history of factitious presentations comes to the emergency department today with chief complaint of left shoulder pain. He states that he has been carrying his 5-month-old granddaughter more than usual and he has been having to carry the granddaughter in his left arm. He now complains of pain to the left anterior shoulder over the anterior deltoid area and he has trouble with lifting or abducting the shoulder completely. He complains of some numbness to his fourth and fifth digits on the hand. He felt the placement of the sling helped somewhat. Review of Systems Constitutional: denies: Fever Respiratory: denies: Cough GI: denies: Vomiting Musculoskeletal: reports: Neck pain, Extremity pain, Joint pain. denies: Joint swelling Neurologic: reports: Numbness. denies: Generalized weakness, Focal weakness PD PAST MEDICAL HISTORY - Past Medical History Cardiovascular: Hypertension, High cholesterol, Murmur Respiratory: None Neuro: None Endocrine/Autoimmune: Type 2 diabetes, HyPOthyroidism GI: None : Kidney stones HEENT: None Psych: Depression, Bipolar disorder Musculoskeletal: Chronic back pain Derm: Other - Past Surgical History Past Surgical History: Yes General: Appendectomy Ortho: ACL reconstruction - Present Medications Home Medications: Ambulatory Orders Medication Instructions Recorded Confirmed Lisinopril 5 mg PO DAILY 08/18/16 03/16/19 SITagliptin [Januvia] 100 mg PO DAILY 09/22/16 03/16/19 Aspirin [Aspirin EC] 81 mg PO DAILY 12/30/16 03/16/19 Insulin Glargine,Hum.rec.anlog 25 unit SUBQ QPM 10/27/17 03/16/19 [Basaglar Kwikpen U-100] Cyclobenzaprine [Flexeril] 10 mg PO QPM PRN 02/27/18 03/16/19 Gabapentin 600 mg PO TID 10/30/18 03/16/19 methIMAzole [Methimazole] 5 mg PO BID 10/30/18 03/16/19 - Allergies Allergies/Adverse Reactions: Allergies Allergy/AdvReac Type Severity Reaction Status Date / Time cinnamon Allergy Unknown Verified 03/22/19 04:20 pregabalin [From Lyrica] Allergy Unknown Verified 03/22/19 04:20 - Social History Does the pt smoke?: Yes Smoking Status: Current every day smoker Does the pt drink ETOH?: Yes Does the pt have substance abuse?: Yes - Immunizations Immunizations are current?: Yes - POLST Patient has POLST: No POLST Status: Full Code PD ED PE NORMAL - Vitals Vital signs reviewed: Yes (tachy and hypertensive ) - General General: Alert and oriented X 3, Well developed/nourished - HEENT HEENT: Atraumatic, PERRL, EOMI - Neck Neck: Supple, no meningeal sign, No bony TTP, Other (mild tenderness to the lateral left trapezius radiating to the insertion of the spinal accessory ) - Respiratory Respiratory: No respiratory distress - Derm Derm: Normal color, Warm and dry, No rash - Extremities Extremities: No deformity, No edema, Other (There is mild pain to palpation of the anterior deltoid and the patient is able to hold the arm in abduction and move the arm actively to abduction with effort. ) - Neuro Neuro: Alert and oriented X 3, inserting press operator 2-12 intact, No motor deficit, No sensory deficit, Normal speech Eye Opening: Spontaneous Motor: Obeys Commands Verbal: Oriented GCS Score: 15 - Psych Psych: Normal mood, Normal affect Results - Vitals Vitals: Vital Signs - 24 hr 03/22/19 04:16 Temperature 36.7 C Heart Rate 117 H Respiratory 17 Rate Blood Pressure 134/103 H O2 Saturation 97 Oxygen O2 Source Room air PD MEDICAL DECISION MAKING - ED course Complexity details: reviewed old records, re-evaluated patient, considered differential, d/w patient ED course: 53 y/o male with a history of fictitious presentation has complaints this morning of injury to the left rotator cuff. He complains of numbness into the left 4th and 5th digits and associated. He gives history of over use carrying a 5 month old granddaughter. His exam is benign and he is administered decadron 10mg PO and placed into a sling. Departure - Departure Disposition: 01 Home, Self Care Clinical Impression: Left shoulder strain Qualifiers: Encounter type: initial encounter Qualified Code(s): S46.912A - Strain of unspecified muscle, fascia and tendon at shoulder and upper arm level, left arm, initial encounter Condition: Stable Instructions: ED Sprain Shoulder Follow-Up: CORINNE BURROUGHS MD [Primary Care Provider] -
[2019-03-22] MEDS ORDERED: ACETAMINOPHEN 325 MG TABLET PO STA (05:05)
== END 2019-03-22 05:07 | disposition home or self-care (01) ==
LOC: EDUNIT# → ED 04:11
DX: S46.912A Strain of unspecified muscle, fascia and tendon at shoulder and upper arm level, left arm, initial encounter (principal); X50.0XXA Overexertion from strenuous movement or load, initial encounter; Y93.F9 Activity, other caregiving; Y92.009 Unspecified place in unspecified non-institutional (private) residence as the place of occurrence of the external cause; I10 Essential (primary) hypertension; E11.9 Type 2 diabetes mellitus without complications; F17.200 Nicotine dependence, unspecified, uncomplicated; Z79.4 Long term (current) use of insulin
CPT/HCPCS: 99282; 99284; A9270

== ENCOUNTER 2019-04-09 12:35 | Outpatient (CLI) | payer MEDICAID ==
[2019-04-09 18:48] LABS: HB2 TOTAL 15.8 g/dL; HEMOGLOBIN A1C 1.14 g/dL; HEMOGLOBIN A1C % 8.8 % (4.6-6.2)
[2019-04-09 19:05] LABS: THYROID STIMULATING HORMONE 1.75 uIU/mL (0.34-5.60)
[2019-04-09 19:07] LABS: FREE T4 (FREE THYROXINE) 0.77 ng/dL (0.58-1.64)
== END 2019-04-09 23:59 | disposition home or self-care (01) ==
LOC: LAB.N 12:35
PROVIDERS: ATTEND Family Medicine
DX: E11.65 Type 2 diabetes mellitus with hyperglycemia (principal); E05.90 Thyrotoxicosis, unspecified without thyrotoxic crisis or storm; Z79.4 Long term (current) use of insulin
CPT/HCPCS: 36415; 83036; 84439; 84443; 84481

== ENCOUNTER 2019-04-14 20:40 | Outpatient (CLI) | payer MEDICAID | END 2019-04-14 20:41 | disposition critical access hospital (66) | LOC: EMS 20:40 | PROVIDERS: ATTEND Surgery | DX: R55 Syncope and collapse (principal); R51 Headache; R20.2 Paresthesia of skin; R50.9 Fever, unspecified; K59.00 Constipation, unspecified; M54.2 Cervicalgia; R20.0 Anesthesia of skin; R53.1 Weakness; R11.2 Nausea with vomiting, unspecified; R06.00 Dyspnea, unspecified; W18.30XA Fall on same level, unspecified, initial encounter; Z91.81 History of falling; Y92.009 Unspecified place in unspecified non-institutional (private) residence as the place of occurrence of the external cause | CPT/HCPCS: A0425; A0427; A0999 ==

== ENCOUNTER 2019-04-14 20:59 | Emergency (ER) | payer MEDICAID ==
--- NOTE | 2019-04-14 21:02 | ED Physician Documentation ---
PD HPI SYNCOPE - Stated complaint Stated Complaint: SYNCOPE - History obtained from History obtained from: Patient, EMS - History of Present Illness Witnessed: Witnessed Timing - onset: Today Preceding symptoms: Nausea / vomiting, Light headed Injury occurred: Fell, Head injury, Neck injury Recently seen: Emergency Dept (last month for different c/o) - Additional information Additional information: BIBA. syncope this evening at home, struck head on baseboard heater. c/o headache, neck pain, LUE paresthesias, left chest pain, left abd. pain. Review of Systems Constitutional: reports: Reviewed and negative Cardiac: reports: Chest pain / pressure. denies: Palpitations Respiratory: reports: Reviewed and negative GI: reports: Abdominal Pain, Nausea : denies: Incontinent Musculoskeletal: reports: Neck pain Neurologic: reports: Numbness (LUE paresthesias), Syncope, Headache, Head injury. denies: Generalized weakness, Focal weakness PD PAST MEDICAL HISTORY - Past Medical History Cardiovascular: Hypertension, High cholesterol, Murmur Respiratory: None Neuro: None Endocrine/Autoimmune: Type 2 diabetes, HyPOthyroidism GI: None : Kidney stones HEENT: None Psych: Depression, Bipolar disorder Musculoskeletal: Chronic back pain Derm: Other - Past Surgical History Past Surgical History: Yes General: Appendectomy Ortho: ACL reconstruction - Present Medications Home Medications: Ambulatory Orders Medication Instructions Recorded Confirmed lisinopriL [Lisinopril] 5 mg PO DAILY 08/18/16 03/16/19 SITagliptin [Januvia] 100 mg PO DAILY 09/22/16 03/16/19 Aspirin [Aspirin EC] 81 mg PO DAILY 12/30/16 03/16/19 Insulin Glargine,Hum.rec.anlog 25 unit SUBQ QPM 10/27/17 03/16/19 [Basaglar Kwikpen U-100] Cyclobenzaprine [Flexeril] 10 mg PO QPM PRN 02/27/18 03/16/19 Gabapentin 600 mg PO TID 10/30/18 03/16/19 methIMAzole [Methimazole] 5 mg PO BID 10/30/18 03/16/19 - Allergies Allergies/Adverse Reactions: Allergies Allergy/AdvReac Type Severity Reaction Status Date / Time cinnamon Allergy Unknown Verified 04/14/19 21:15 pregabalin [From Lyrica] Allergy Unknown Verified 04/14/19 21:15 - Social History Does the pt smoke?: Yes Smoking Status: Current every day smoker Does the pt drink ETOH?: Yes Does the pt have substance abuse?: Yes - Immunizations Immunizations are current?: Yes - POLST Patient has POLST: No POLST Status: Full Code PD ED PE NORMAL - Vitals Vital signs reviewed: Yes - General General: Alert and oriented X 3, Well developed/nourished, Other (appears anxious) - HEENT HEENT: Atraumatic, PERRL, EOMI, Moist mucous membranes - Neck Neck: Supple, no meningeal sign, No bony TTP - Cardiac Cardiac: RRR - Respiratory Respiratory: No respiratory distress, Clear bilaterally - Abdomen Abdomen: Soft, Other (left abd tenderness without rebound or guarding) - Derm Derm: Normal color, Warm and dry - Extremities Extremities: No deformity, No tenderness to palpate, Normal ROM s pain, No edema - Neuro Neuro: Alert and oriented X 3, archery equipment hay sorter 2-12 intact, No motor deficit, No sensory deficit, Normal speech Results - Vitals Vitals: Oxygen O2 Source Room air Oxygen Flow Rate 2 - EKG (time done) No standard instances Rate: Rate (enter#) (107), Tachy Rhythm: Sinus tachycardia, LAE [place]: LAD Intervals: Normal [place] QRS: Normal Ischemia: Normal ST segments - Labs Labs: Laboratory Tests 04/14/19 04/14/19 04/14/19 21:10 21:10 21:10 WBC 4.5 L RBC 4.89 Hgb 15.1 Hct 45.0 MCV 92.0 MCH 30.9 MCHC 33.6 RDW 12.3 Plt Count 189 MPV 11.1 Neut # (Auto) 2.5 Lymph # (Auto) 1.3 L [place] # (Auto) 0.6 Eos # (Auto) 0.1 Baso # (Auto) 0.0 Absolute Nucleated RBC 0.00 Nucleated RBC % 0.0 Sodium 138 Potassium 3.7 Chloride 104 Carbon Dioxide 25 Anion Gap 9.0 BUN 12 Creatinine 0.8 Estimated GFR (MDRD) 100 Glucose 211 H Calcium 8.7 Total Bilirubin 0.5 AST 18 ALT 19 Alkaline Phosphatase 64 Troponin I High Sens < 2.3 L Total Protein 6.8 Albumin 4.2 Globulin 2.6 Albumin/Globulin Ratio 1.6 Lipase 22 Urine Color Urine Clarity Urine pH Ur Specific [place] Urine Protein Urine Glucose (UA) Urine Ketones Urine Occult Blood Urine Nitrite Urine Bilirubin Urine Urobilinogen Ur Leukocyte Esterase Ur Microscopic Review Urine Culture Comments 04/14/19 21:10 WBC RBC Hgb Hct MCV MCH MCHC RDW Plt Count MPV Neut # (Auto) Lymph # (Auto) [place] # (Auto) Eos # (Auto) Baso # (Auto) Absolute Nucleated RBC Nucleated RBC % Sodium Potassium Chloride Carbon Dioxide Anion Gap BUN Creatinine Estimated GFR (MDRD) Glucose Calcium Total Bilirubin AST ALT Alkaline Phosphatase Troponin I High Sens Total Protein Albumin Globulin Albumin/Globulin Ratio Lipase Urine Color LT. YELLOW Urine Clarity CLEAR Urine pH 6.0 Ur Specific [place] <=1.005 Urine Protein NEGATIVE Urine Glucose (UA) 250 H Urine Ketones NEGATIVE Urine Occult Blood NEGATIVE Urine Nitrite NEGATIVE Urine Bilirubin NEGATIVE Urine Urobilinogen 0.2 (NORMAL) Ur Leukocyte Esterase NEGATIVE Ur Microscopic Review NOT INDICATED Urine Culture Comments NOT INDICATED - Rads (name of study) chest xray Radiology: Prelim report reviewed, See rad report CT head Radiology: Prelim report reviewed, See rad report CT A/P Radiology: Prelim report reviewed, See rad report CT cervical spine Radiology: Prelim report reviewed, See rad report PD MEDICAL DECISION MAKING - ED course Complexity details: reviewed old records, reviewed results, re-evaluated patient, considered differential, d/w patient ED course: after tests resulted, cervical collar removed, patient ambulated to and from bathroom slowly but without assistance Departure - Departure Disposition: 01 Home, Self Care Clinical Impression: Syncope Qualifiers: Syncope type: unspecified Qualified Code(s): R55 - Syncope and collapse Cervical strain Qualifiers: Encounter type: initial encounter Qualified Code(s): S16.1XXA - Strain of muscle, fascia and tendon at neck level, initial encounter Condition: Good Instructions: ED Sprain Strain Neck, ED Fainting Unkn Cause Follow-Up: CORINNE BURROUGHS MD [Primary Care Provider] - Within 1 week Discharge Date/Time: 04/15/19 01:55
[2019-04-14 21:21] LABS: BASOPHILS % (AUTO) 0.7 %; EOSINOPHILS # (AUTO) 0.1 10^3/uL (0.0-0.7); EOSINOPHILS % (AUTO) 2.4 %; HGB - HEMOGLOBIN 15.1 g/dL (14.0-18.0); LYMPHOCYTES # (AUTO) 1.3 10^3/uL (1.5-3.5); LYMPHOCYTES % (AUTO) 27.9 %; MEAN CORPUSCULAR HEMOGLOBIN 30.9 pg (27.0-31.0); MEAN CORPUSCULAR HGB CONC 33.6 g/dL (32.0-36.0); MEAN PLATELET VOLUME 11.1 fL (7.4-11.4); MONOCYTES # (AUTO) 0.6 10^3/uL (0.0-1.0); MONOCYTES % (AUTO) 13.5 %; NEUTROPHILS # (AUTO) 2.5 10^3/uL (1.5-6.6); NEUTROPHILS % (AUTO) 55.3 %; PLT - PLATELET COUNT 189 10^3/uL (130-450); RED BLOOD COUNT 4.89 10^6/uL (4.70-6.10); RED CELL DISTRIBUTION WIDTH 12.3 % (12.0-15.0); WHITE BLOOD COUNT 4.5 x10^3/uL (4.8-10.8)
[2019-04-14 21:23] LABS: BILIRUBIN,URINE NEGATIVE (NEGATIVE); GLUCOSE, URINE (UA) 250 mg/dL (NEGATIVE); KETONES,URINE (UA) NEGATIVE (NEGATIVE); LEUKOCYTE ESTERASE, URINE NEGATIVE (NEGATIVE); NITRITE,URINE NEGATIVE (NEGATIVE); OCCULT BLOOD,URINE NEGATIVE (NEGATIVE); PROTEIN,URINE NEGATIVE (NEGATIVE); UROBILINOGEN,URINE 0.2 (NORMAL) E.U./dL (NORMAL)
[2019-04-14 21:24] LABS: CLARITY,URINE CLEAR (CLEAR)
[2019-04-14] MEDS ORDERED: IOVERSOL 320 100 ML VIAL IVP ONE ×2 (21:26→22:08)
--- NOTE | 2019-04-14 21:34 | XRAY Report ---
Reason: chest pain Procedure Date: 04/14/2019 Accession Number: [id number] / [id number] Procedure: XR - Chest 1 View X-Ray CPT Code: 98753 Final Report FULL RESULT: EXAM: CHEST RADIOGRAPHY EXAM DATE: 04/14/2019 09:26 PM. CLINICAL HISTORY: Chest pain. COMPARISON: CHEST 1 VIEW 03/15/2019 10:17 PM. TECHNIQUE: 1 view. FINDINGS: Lungs/Pleura: No focal opacities evident. No pleural effusion. No pneumothorax. Mediastinum: Within exam limitations, the cardiomediastinal contour is normal. Other: None. IMPRESSION: No acute intrathoracic plain film abnormality. RADIA
[2019-04-14 21:36] LABS: ALBUMIN 4.2 g/dL (3.2-5.5); ALBUMIN/GLOBULIN RATIO 1.6 (1.0-2.2); BILIRUBIN,TOTAL 0.5 mg/dL (0.2-1.0); CALCIUM 8.7 mg/dL (8.5-10.3); CREATININE 0.8 mg/dL (0.6-1.2); TOTAL PROTEIN 6.8 g/dL (6.7-8.2)
--- NOTE | 2019-04-14 22:18 | CT Report ---
Reason: abdominal pain, tenderness Procedure Date: 04/14/2019 Accession Number: [id number] / [id number] Procedure: CT - Abdomen/Pelvis W CPT Code: Final Report FULL RESULT: EXAM: CT ABDOMEN AND PELVIS EXAM DATE: 04/14/2019 10:06 PM. CLINICAL HISTORY: Abdominal pain, tenderness. COMPARISONS: ABDOMEN/PELVIS W/ 02/11/2018 9:49 PM. TECHNIQUE: Routine helical CT imaging was performed through the abdomen and pelvis. IV contrast: OPTI 320 100ML. Enteric contrast: No. Reconstructions: Coronal and sagittal. In accordance with CT protocol optimization, one or more of the following dose reduction techniques were utilized for this exam: automated exposure control, adjustment of mA and/or KV based on patient size, or use of iterative reconstructive technique. FINDINGS: Lung Bases: Mild bibasilar atelectasis. Liver: No focal abnormality seen. Gallbladder/Bile Ducts: Unremarkable. Spleen: Normal. Pancreas: Normal. Adrenal Glands: Normal. Kidneys: Normal. No masses or hydronephrosis. Peritoneal Cavity/Bowel: No bowel obstruction seen. No free air or free fluid. No diverticulitis. No lymphadenopathy seen. Appendix is not seen. There appears to be prior appendectomy. Pelvic Organs: Moderately distended urinary bladder. Visualized pelvic organs are otherwise unremarkable. Vasculature: Mild atherosclerosis. No aortic aneurysm. Bones: No significant abnormality. Other: None. IMPRESSION: 1. No acute inflammatory or obstructive process seen in the abdomen or pelvis. 2. Moderately distended urinary bladder. RADIA
--- NOTE | 2019-04-14 22:22 | CT Report ---
Reason: syncope, MARRERO Procedure Date: 04/14/2019 Accession Number: [id number] / [id number] Procedure: CT - HEAD WO CPT Code: Final Report FULL RESULT: EXAM: CT HEAD EXAM DATE: 04/14/2019 10:12 PM. CLINICAL HISTORY: Syncope. Headache. Fall. Head injury. COMPARISON: HEAD W/O 01/06/2018 8:43 PM. TECHNIQUE: Multiaxial CT images were obtained from the foramen magnum to the vertex. Reformats: Sagittal and coronal. IV contrast: None. In accordance with CT protocol optimization, one or more of the following dose reduction techniques were utilized for this exam: automated exposure control, adjustment of mA and/or KV based on patient size, or use of iterative reconstructive technique. FINDINGS: Parenchyma: No intraparenchymal hemorrhage. No evidence of mass, midline shift, or CT findings of infarction. Lopez-white differentiation is distinct. Extraaxial Spaces: Normal for age. No subdural or epidural collections identified. Ventricles: Normal in size and position. Sinuses and Orbits: Imaged paranasal sinuses, orbits, and mastoids show no significant abnormality. Bones: No evidence of fracture or calvarial defect. Other: None. IMPRESSION: Normal head CT. RADIA
[2019-04-14] MEDS ORDERED: LORazepam 2 MG/ML VIAL IVP STA (22:26)
--- NOTE | 2019-04-14 22:34 | CT Report ---
Reason: syncope, pain, tenderness Procedure Date: 04/14/2019 Accession Number: [id number] / [id number] Procedure: CT - CERVICAL SPINE WO CPT Code: Final Report FULL RESULT: EXAM: CT CERVICAL SPINE WITHOUT CONTRAST DATE: 04/14/2019 10:20 PM. HISTORY: Syncope. Fall. Pain. Tenderness. COMPARISONS: HEAD W/O 01/06/2018 8:43 PM. TECHNIQUE: Thin-section axial images were acquired of the cervical spine without contrast. Post-processing: Coronal and sagittal reformats. Other: None. In accordance with CT protocol optimization, one or more of the following dose reduction techniques were utilized for this exam: automated exposure control, adjustment of mA and/or KV based on patient size, or use of iterative reconstructive technique. FINDINGS: Alignment: Mild dextroscoliosis. No spondylolisthesis. Bones: No fracture or bone lesion. Interspace Levels/Facets: C1-C2: Unremarkable. C2-C3: Unremarkable. C3-C4: Unremarkable. C4-C5: Anterior interbody fusion. C5-C6: Unremarkable. C6-C7: Anterior interbody fusion. C7-T1: Moderate disk space narrowing with spurring. Musculature: Normal. No fatty atrophy. Other: The paravertebral and prevertebral soft tissues are unremarkable. The lung apices are clear. IMPRESSION: 1. No acute cervical spine abnormalities. 2. Anterior interbody fusion at C4-C5 and C6-C7. 3. Degenerative disk disease at C7-T1. RADIA
[2019-04-15 01:05] VITALS: BP 93/66
== END 2019-04-15 01:55 | disposition home or self-care (01) ==
LOC: EDUNIT# → ED 20:59
DX: R55 Syncope and collapse (principal); S16.1XXA Strain of muscle, fascia and tendon at neck level, initial encounter; W22.09XA Striking against other stationary object, initial encounter; R00.0 Tachycardia, unspecified; M50.33 Other cervical disc degeneration, cervicothoracic region; I10 Essential (primary) hypertension; E11.9 Type 2 diabetes mellitus without complications; Z79.4 Long term (current) use of insulin; Z79.82 Long term (current) use of aspirin; F17.200 Nicotine dependence, unspecified, uncomplicated
CPT/HCPCS: 36415; 70450; 71045; 72125; 74177; 80053; 81003; 83690; 84484; 85025; 93005; 96374; 99283; 99284; J2060; Q9967; 81001; 87086

== ENCOUNTER 2019-06-04 22:08 | Emergency (ER) | payer MEDICAID ==
[2019-06-04 22:19] VITALS: BP 131/95
--- NOTE | 2019-06-04 23:23 | ED Physician Documentation ---
History of Present Illness - Stated complaint Stated Complaint: L KNEE PAIN - Chief complaint Chief Complaint: Ext Problem - History obtained from History obtained from: Patient - History of Present Illness Timing: Today (tonight) Pain level now: 6 Improved by: rest Worsened by: movement (left knee) - Additonal information Additional information: c/o sudden onset left knee pain, occurred while walking from one room to another in his house tonight. Also notes knee swelling since the incident. Unable to bear any substantial weight LLE due to the knee pain Review of Systems Musculoskeletal: reports: Joint pain, Joint swelling, Pain with weight bearing. denies: Neck pain, Back pain Neurologic: denies: Focal weakness, Numbness PD PAST MEDICAL HISTORY - Past Medical History Cardiovascular: Hypertension, High cholesterol, Murmur Respiratory: None Neuro: None Endocrine/Autoimmune: Type 2 diabetes, HyPOthyroidism GI: None : Kidney stones HEENT: None Psych: Depression, Bipolar disorder Musculoskeletal: Chronic back pain Derm: Other - Past Surgical History Past Surgical History: Yes General: Appendectomy Ortho: ACL reconstruction - Present Medications Home Medications: Ambulatory Orders Medication Instructions Recorded Confirmed lisinopriL [Lisinopril] 5 mg PO DAILY 08/18/16 03/16/19 SITagliptin [Januvia] 100 mg PO DAILY 09/22/16 03/16/19 Aspirin [Aspirin EC] 81 mg PO DAILY 12/30/16 03/16/19 Insulin Glargine,Hum.rec.anlog 25 unit SUBQ QPM 10/27/17 03/16/19 [Basaglar Kwikpen U-100] Cyclobenzaprine [Flexeril] 10 mg PO QPM PRN 02/27/18 03/16/19 Gabapentin 600 mg PO TID 10/30/18 03/16/19 methIMAzole [Methimazole] 5 mg PO BID 10/30/18 03/16/19 Hydrocodone/Acetaminophen 1 - 2 each PO Q6H PRN #14 tablet 06/05/19 [Hydrocodon-Acetaminophen 5-325] - Allergies Allergies/Adverse Reactions: Allergies Allergy/AdvReac Type Severity Reaction Status Date / Time cinnamon Allergy Unknown Verified 04/14/19 21:15 pregabalin [From Lyrica] Allergy Unknown Verified 04/14/19 21:15 - Social History Does the pt smoke?: Yes Smoking Status: Current every day smoker Does the pt drink ETOH?: Yes Does the pt have substance abuse?: Yes - Immunizations Immunizations are current?: Yes - POLST Patient has POLST: No POLST Status: Full Code PD ED PE NORMAL - Vitals Vital signs reviewed: Yes - General General: Alert and oriented X 3, No acute distress (NAD at rest, painful discomfort with movement involving left knee), Well developed/nourished PD ED PE EXPANDED - Extremities Extremities: Limited ROM, Left knee (mild swelling, moderate TTP mostly inferior (caudal) to patella) Results - Vitals Vitals: Vital Signs - 24 hr 06/04/19 22:15 Temperature 36.4 C L Heart Rate 114 H Respiratory 18 Rate Blood Pressure 131/95 H O2 Saturation 95 Oxygen O2 Source Room air - Rads (name of study) left knee xrays Radiology: Prelim report reviewed, See rad report PD MEDICAL DECISION MAKING - ED course Complexity details: reviewed results, re-evaluated patient, considered differential, d/w patient Departure - Departure Disposition: 01 Home, Self Care Clinical Impression: Knee pain Qualifiers: Chronicity: acute Laterality: left Qualified Code(s): M25.562 - Pain in left knee Condition: Good Instructions: ED Bandage Elastic Wrap, ED Cane Selection And Use, ED Knee Pain UKO Follow-Up: CORINNE BURROUGHS MD [Primary Care Provider] - Prescriptions: Hydrocodone/Acetaminophen [Hydrocodon-Acetaminophen 5-325] 1 - 2 each PO Q6H PRN #14 tablet PRN Reason: pain Discharge Date/Time: 06/05/19 02:13
[2019-06-04] MEDS ORDERED: HYDROcod/ACETAM 5/325 MG TABLET PO STA (23:44)
[2019-06-04] MEDS ORDERED: CYCLOBENZAPRINE 10 MG TABLET PO STA (23:44)
--- NOTE | 2019-06-05 00:22 | XRAY Report ---
Reason: left knee pain Procedure Date: 06/05/2019 Accession Number: [id number] / [id number] Procedure: XR - Knee 3 View LT CPT Code: Final Report FULL RESULT: EXAM: LEFT KNEE RADIOGRAPHY. EXAM DATE: 06/05/2019 12:05 AM. CLINICAL HISTORY: Left knee pain. COMPARISON: None. TECHNIQUE: 3 views. FINDINGS: Bones: Normal. No fractures or bone lesions. Joints: Normal. No effusion. No subluxations. Soft Tissues: Normal. No soft tissue swelling. IMPRESSION: Normal knee radiography. RADIA
== END 2019-06-05 02:13 | disposition home or self-care (01) ==
LOC: ED 22:08
DX: M25.562 Pain in left knee (principal); I10 Essential (primary) hypertension; E11.9 Type 2 diabetes mellitus without complications; F17.200 Nicotine dependence, unspecified, uncomplicated; Z79.4 Long term (current) use of insulin
CPT/HCPCS: 73562; 99283; A9270

== ENCOUNTER 2019-06-07 16:31 | Outpatient (CLI) | payer MEDICAID | END 2019-06-07 16:32 | disposition short-term general hospital (02) | LOC: EMS 16:31 | PROVIDERS: ATTEND Surgery | DX: R46.4 Slowness and poor responsiveness (principal); R47.81 Slurred speech; R51 Headache | CPT/HCPCS: A0425; A0427; A0999 ==

== ENCOUNTER 2019-07-04 00:55 | Outpatient (CLI) | payer MEDICAID | END 2019-07-04 00:56 | disposition critical access hospital (66) | LOC: EMS 00:55 | PROVIDERS: ATTEND Surgery | DX: R41.82 Altered mental status, unspecified (principal); R73.09 Other abnormal glucose; R10.9 Unspecified abdominal pain | CPT/HCPCS: A0425; A0427; A0999 ==

== ENCOUNTER 2019-07-04 01:22 | Emergency (ER) | payer MEDICAID ==
[2019-07-04] MEDS ORDERED: NALOXONE 0.4 MG/ML VIAL ONE (01:34)
[2019-07-04] MEDS ORDERED: NALOXONE 0.4 MG/ML VIAL IVP STA (01:43)
--- NOTE | 2019-07-04 02:18 | CT Report ---
Reason: AMS Procedure Date: 07/04/2019 Accession Number: [id number] / [id number] Procedure: CT - HEAD WO CPT Code: Final Report FULL RESULT: EXAM: CT HEAD EXAM DATE: 07/04/2019 02:04 AM. CLINICAL HISTORY: Decreased mental status. COMPARISON: HEAD W/O 04/14/2019 9:41 PM. TECHNIQUE: Multiaxial CT images were obtained from the foramen magnum to the vertex. Reformats: Sagittal and coronal. IV contrast: None. In accordance with CT protocol optimization, one or more of the following dose reduction techniques were utilized for this exam: automated exposure control, adjustment of mA and/or KV based on patient size, or use of iterative reconstructive technique. FINDINGS: Parenchyma: No intraparenchymal hemorrhage. No evidence of mass, midline shift, or CT findings of infarction. Lopez-white differentiation is distinct. Extraaxial Spaces: Normal for age. No subdural or epidural collections identified. Ventricles: Normal in size and position. Sinuses and Orbits: Imaged paranasal sinuses, orbits, and mastoids show no significant abnormality. Bones: No evidence of fracture or calvarial defect. Other: None. IMPRESSION: 1. No acute intracranial abnormality. RADIA
[2019-07-04 02:19] LABS: MUDS CUTOFF CONCENTRATIONS CUTOFF CONC BELOW:
[2019-07-04 02:21] LABS: BASOPHILS % (AUTO) 0.4 %; EOSINOPHILS # (AUTO) 0.2 10^3/uL (0.0-0.7); EOSINOPHILS % (AUTO) 2.9 %; HGB - HEMOGLOBIN 13.9 g/dL (14.0-18.0); LYMPHOCYTES # (AUTO) 1.5 10^3/uL (1.5-3.5); LYMPHOCYTES % (AUTO) 26.2 %; MEAN CORPUSCULAR HEMOGLOBIN 30.2 pg (27.0-31.0); MEAN CORPUSCULAR HGB CONC 33.4 g/dL (32.0-36.0); MEAN CORPUSCULAR VOLUME 90.2 fL (80.0-94.0); MEAN PLATELET VOLUME 11.4 fL (7.4-11.4); MONOCYTES # (AUTO) 0.9 10^3/uL (0.0-1.0); MONOCYTES % (AUTO) 16.7 %; NEUTROPHILS % (AUTO) 53.6 %; PLT - PLATELET COUNT 153 10^3/uL (130-450); RED BLOOD COUNT 4.61 10^6/uL (4.70-6.10); RED CELL DISTRIBUTION WIDTH 12.4 % (12.0-15.0); WHITE BLOOD COUNT 5.6 x10^3/uL (4.8-10.8)
[2019-07-04 02:22] LABS: BILIRUBIN,URINE NEGATIVE (NEGATIVE); GLUCOSE, URINE (UA) >=1000 mg/dL (NEGATIVE); KETONES,URINE (UA) NEGATIVE (NEGATIVE); LEUKOCYTE ESTERASE, URINE NEGATIVE (NEGATIVE); NITRITE,URINE NEGATIVE (NEGATIVE); OCCULT BLOOD,URINE NEGATIVE (NEGATIVE); PROTEIN,URINE NEGATIVE (NEGATIVE); UROBILINOGEN,URINE 0.2 (NORMAL) E.U./dL (NORMAL)
[2019-07-04 02:24] LABS: CLARITY,URINE CLEAR (CLEAR)
[2019-07-04 02:33] LABS: AMPHETAMINE SCREEN,URINE NEGATIVE (NEGATIVE); BENZODIAZEPINES SCREEN, URINE NEGATIVE (NEGATIVE); COCAINE SCREEN URINE NEGATIVE (NEGATIVE); METHADONE SCREEN, URINE NEGATIVE (NEGATIVE); METHAMPHETAMINES SCREEN, URINE NEGATIVE (NEGATIVE); OPIATE SCREEN, URINE NEGATIVE (NEGATIVE); OXYCODONE SCREEN, URINE NEGATIVE (NEGATIVE); PROPOXYPHENE SCREEN, URINE NEGATIVE (NEGATIVE); TRICYCLIC ANTIDEPRESSANT,URINE NEGATIVE (NEGATIVE)
[2019-07-04 02:34] LABS: ACETAMINOPHEN < 10 ug/mL (10-30); ALBUMIN 3.9 g/dL (3.2-5.5); ALBUMIN/GLOBULIN RATIO 1.4 (1.0-2.2); ALKALINE PHOSPHATASE 79 IU/L (42-121); ALT ALANINE AMINOTRANSFERASE 24 IU/L (10-60); AST ASPARTATE AMINOTRANSFERASE 19 IU/L (10-42); BILIRUBIN,TOTAL 0.3 mg/dL (0.2-1.0); BUN - BLOOD UREA NITROGEN 12 mg/dL (6-20); CALCIUM 8.4 mg/dL (8.5-10.3); CARBON DIOXIDE - CO2 25 mmol/L (21-32); CHLORIDE 105 mmol/L (101-111); CREATININE 0.6 mg/dL (0.6-1.2); GLUCOSE 289 mg/dL (70-100); LIPASE 28 U/L (22-51); SODIUM 136 mmol/L (135-145); TOTAL PROTEIN 6.7 g/dL (6.7-8.2)
--- NOTE | 2019-07-04 03:43 | ED Physician Documentation ---
PD HPI ALTERED MENTAL STATUS - Stated complaint Stated Complaint: AMS - Chief complaint Chief Complaint: Neuro - History obtained from History obtained from: Patient, EMS - History of Present Illness Timing - onset: Today Timing - details: Still present Quality / character: Less responsive Contributing factors: Diabetic Basline status: Alert and oriented X 3, Ambulatory, Independent Recently seen: Admitted (received tPA 06/06 at another hospital for possible CVA) - Additional information Additional information: brought in by ambulance for altered mental status. 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 No report of injury. On route, medics administered Narcan 0.8 mg and significant improvement in mental status was noted. by the time he arrives in ED, he is again lethargic, awakens briefly to voice and tactile stimuli but cannot contribute to HPI/ROS due to AMS Review of Systems Unable to obtain: Other (ROS unibtainable on arrival due to AMS, but below is rhe ROS obtained towards end of stay when he was AAOx3) Constitutional: reports: Reviewed and negative Eyes: reports: Reviewed and negative Cardiac: reports: Reviewed and negative Respiratory: reports: Reviewed and negative GI: reports: Reviewed and negative : denies: Dysuria, Frequency PD PAST MEDICAL HISTORY - Past Medical History Past Medical History: Yes Cardiovascular: Hypertension, High cholesterol, VT, Murmur Respiratory: None Neuro: None Endocrine/Autoimmune: Type 2 diabetes, HyPOthyroidism GI: None : Kidney stones HEENT: None Psych: Depression, Bipolar disorder Musculoskeletal: Chronic back pain Derm: Other - Past Surgical History Past Surgical History: Yes General: Appendectomy Ortho: ACL reconstruction - Present Medications Home Medications: Ambulatory Orders Medication Instructions Recorded Confirmed Aspirin [Aspirin EC] 81 mg PO DAILY 12/30/16 07/04/19 Insulin Glargine,Hum.rec.anlog 25 unit SUBQ QPM 10/27/17 07/04/19 [Basaglar Kwikpen U-100] methIMAzole [Methimazole] 5 mg PO BID 10/30/18 07/04/19 Atorvastatin Calcium 40 mg PO DAILY 07/04/19 07/04/19 Cefadroxil [Duricef] 500 mg PO BID 07/04/19 07/04/19 Celecoxib 200 mg PO DAILY 07/04/19 07/04/19 Clopidogrel [Plavix] 75 mg PO DAILY 07/04/19 07/04/19 Levetiracetam [Keppra] 500 mg PO BID 07/04/19 07/04/19 - Allergies Allergies/Adverse Reactions: Allergies Allergy/AdvReac Type Severity Reaction Status Date / Time cinnamon Allergy Unknown Verified 07/04/19 01:32 pregabalin [From Lyrica] Allergy Unknown Verified 07/04/19 01:32 - Social History Does the pt smoke?: Yes Smoking Status: Current every day smoker Does the pt drink ETOH?: Yes Does the pt have substance abuse?: Yes - Immunizations Immunizations are current?: Yes - POLST Patient has POLST: No POLST Status: Full Code PD ED PE NORMAL - Vitals Vital signs reviewed: Yes - General General: No acute distress, Well developed/nourished - HEENT HEENT: Atraumatic, PERRL, EOMI, Moist mucous membranes - Neck Neck: Supple, no meningeal sign - Cardiac Cardiac: RRR, No murmur - Respiratory Respiratory: No respiratory distress, Clear bilaterally - Abdomen Abdomen: Soft, Non tender - Derm Derm: Normal color, Warm and dry - Neuro Neuro: No motor deficit (limited to hvac lead (equal bilaterally) and plantar flexion (equal bilaterally)) Eye Opening: To Voice Motor: Obeys Commands (simple only) Results - Vitals Vitals: Oxygen O2 Source Room air - Labs Labs: Laboratory Tests 07/04/19 07/04/19 07/04/19 02:00 02:15 02:15 WBC 5.6 RBC 4.61 L Hgb 13.9 L Hct 41.6 L MCV 90.2 MCH 30.2 MCHC 33.4 RDW 12.4 Plt Count 153 MPV 11.4 Neut # (Auto) 3.0 Lymph # (Auto) 1.5 Florence # (Auto) 0.9 Eos # (Auto) 0.2 Baso # (Auto) 0.0 Absolute Nucleated RBC 0.00 Nucleated RBC % 0.0 Sodium 136 Potassium 3.6 Chloride 105 Carbon Dioxide 25 Anion Gap 6.0 BUN 12 Creatinine 0.6 Estimated GFR (MDRD) 140 Glucose 289 H Calcium 8.4 L Total Bilirubin 0.3 AST 19 ALT 24 Alkaline Phosphatase 79 Total Protein 6.7 Albumin 3.9 Globulin 2.8 Albumin/Globulin Ratio 1.4 Lipase 28 TSH Urine Color YELLOW Urine Clarity CLEAR Urine pH 6.0 Ur Specific Aurora 1.010 Urine Protein NEGATIVE Urine Glucose (UA) >=1000 H Urine Ketones NEGATIVE Urine Occult Blood NEGATIVE Urine Nitrite NEGATIVE Urine Bilirubin NEGATIVE Urine Urobilinogen 0.2 (NORMAL) Ur Leukocyte Esterase NEGATIVE Ur Microscopic Review NOT INDICATED Urine Culture Comments NOT INDICATED Urine Opiates Screen NEGATIVE Ur Oxycodone Screen NEGATIVE Urine Methadone Screen NEGATIVE Ur Propoxyphene Screen NEGATIVE Acetaminophen < 10 L Ur Barbiturates Screen NEGATIVE Ur Tricyclics Screen NEGATIVE Ur Phencyclidine Scrn NEGATIVE Ur Amphetamine Screen NEGATIVE U Methamphetamines Scrn NEGATIVE U Benzodiazepines Scrn NEGATIVE Urine Cocaine Screen NEGATIVE U Cannabinoids Screen NEGATIVE Ethyl Alcohol < 5.0 07/04/19 02:15 WBC RBC Hgb Hct MCV MCH MCHC RDW Plt Count MPV Neut # (Auto) Lymph # (Auto) Florence # (Auto) Eos # (Auto) Baso # (Auto) Absolute Nucleated RBC Nucleated RBC % Sodium Potassium Chloride Carbon Dioxide Anion Gap BUN Creatinine Estimated GFR (MDRD) Glucose Calcium Total Bilirubin AST ALT Alkaline Phosphatase Total Protein Albumin Globulin Albumin/Globulin Ratio Lipase TSH 1.02 Urine Color Urine Clarity Urine pH Ur Specific Aurora Urine Protein Urine Glucose (UA) Urine Ketones Urine Occult Blood Urine Nitrite Urine Bilirubin Urine Urobilinogen Ur Leukocyte Esterase Ur Microscopic Review Urine Culture Comments Urine Opiates Screen Ur Oxycodone Screen Urine Methadone Screen Ur Propoxyphene Screen Acetaminophen Ur Barbiturates Screen Ur Tricyclics Screen Ur Phencyclidine Scrn Ur Amphetamine Screen U Methamphetamines Scrn U Benzodiazepines Scrn Urine Cocaine Screen U Cannabinoids Screen Ethyl Alcohol - Rads (name of study) CT head Radiology: Prelim report reviewed, See rad report PD MEDICAL DECISION MAKING - ED course Complexity details: reviewed old records, reviewed results, re-evaluated patient, considered differential ED course: records from recent inpatient stay at [facility] faxed and received, reviewed by me. early in ED stay, given narcan 0.8mg IV (same dose as given by EMS) and this did result in rapid, albeit mild, improvement in mental status. however, he has no opiate/narcotic medications noted of the ones brought with him by medics, and his UDS is negative for opiates. he slept while test results were pending, and on reevaluation after few hours in ED, he is asleep but awakens easily to gentle verbal stimulus, is AAOx3 and in NAD. he has a nonfocal neurologic exam. he asks if his medications could have caused the drowsiness, but of those he has at bedside and the ones he asks specifically about (celecoxib, plavix), I do not see a causal link between them and his symptoms. he has had no changes in his keppra dose, and this was started a few weeks ago. Departure - Departure Disposition: 01 Home, Self Care Clinical Impression: Altered mental status Qualifiers: Altered mental status type: unspecified Qualified Code(s): R41.82 - Altered mental status, unspecified Condition: Good Instructions: ED Altered Loc Discharge Date/Time: 07/04/19 07:15
[2019-07-04 05:34] VITALS: BP 135/86
== END 2019-07-04 07:15 | disposition home or self-care (01) ==
LOC: EDSEX → EDUNIT# → ED 01:22
DX: R41.82 Altered mental status, unspecified (principal); I10 Essential (primary) hypertension; E11.9 Type 2 diabetes mellitus without complications; Z79.4 Long term (current) use of insulin; F17.200 Nicotine dependence, unspecified, uncomplicated
CPT/HCPCS: 36415; 70450; 80053; 80306; 80307; 80320; 81001; 81003; 83690; 84443; 85025; 87086; 96374; 99285

== ENCOUNTER 2019-09-11 10:59 | Emergency (ER) | payer MEDICAID ==
--- NOTE | 2019-09-11 12:05 | XRAY Report ---
Reason: injury to extremity Procedure Date: 09/11/2019 Accession Number: [id number] / [id number] Procedure: XR - Tib/Fib LT CPT Code: Final Report FULL RESULT: PROCEDURE: Tib/Fib LT INDICATIONS: injury to extremity TECHNIQUE: 2 views of the tibia and fibula were acquired. COMPARISON: 3 view ankle 11/15/2018 FINDINGS: Bones: No fractures or dislocations. No suspicious bony lesions. Incidental note made of small calcaneal bone spurs. Soft tissues: No suspicious soft tissue calcifications or masses. No soft tissue gas or radiodense foreign bodies. IMPRESSION: No fracture. No acute osseous lesion. If there is continued clinical concern for pathology, then repeat plain film radiographs (7-10 days) or advanced imaging (CT, MR, bone scan) should be considered for further evaluation. Reviewed by: Nadia Chilel MD, PhD on 09/11/2019 12:04 PM PDT Approved by: Nadia Chilel MD, PhD on 09/11/2019 12:04 PM PDT Station ID: [id number]
--- NOTE | 2019-09-11 12:18 | ED Physician Documentation ---
PD HPI LOWER EXT INJURY - Stated complaint Stated Complaint: L LEG INJ - Chief complaint Chief Complaint: Ext Problem - History obtained from History obtained from: Patient, Family - History of Present Illness PD HPI LOW EXT INJURY LOCATION: Left, Lower leg Type of injury: Blunt / blow Where injury occurred: Home Timing - onset: Enter time (829), Today Timing - duration: Hours Timing - details: Abrupt onset, Still present Improved by: Rest, Immobilization Worsened by: Moving, Palpating Associated symptoms: Swelling, Discolored. No: Weakness, Numbness Contributing factors: Anticoagulated (with plavix) Similar symptoms before: Diagnosis (bruise) Recently seen: Not recently seen - Additional information Additional information: 53-year-old male with a prior history of factitious presentations comes in this morning with the chief complaint of pain to his left lower calf after falling it in the hallway of his home. He does not want know what he struck his leg against but he has some round bruises to the anterior calf. 1 of the bruises has a target-like appearance. He states that this bruise only occurred today and previous today this was not present.He reports that he has been recently diagnosed with complex regional pain syndrome and that he has been diagnosed with a TIA and placed on Plavix. Review of Systems Constitutional: denies: Fever Respiratory: denies: Cough GI: denies: Vomiting PD PAST MEDICAL HISTORY - Past Medical History Cardiovascular: Hypertension, High cholesterol, MS, Murmur Respiratory: None Neuro: None Endocrine/Autoimmune: Type 2 diabetes, HyPOthyroidism GI: None : Kidney stones HEENT: None Psych: Depression, Bipolar disorder Musculoskeletal: Chronic back pain Derm: Other - Past Surgical History Past Surgical History: Yes General: Appendectomy Ortho: ACL reconstruction - Present Medications Home Medications: Ambulatory Orders Medication Instructions Recorded Confirmed Aspirin [Aspirin EC] 81 mg PO DAILY 12/30/16 07/04/19 Insulin Glargine,Hum.rec.anlog 25 unit SUBQ QPM 10/27/17 07/04/19 [Basaglar Cesarpen U-100] methIMAzole [Methimazole] 5 mg PO BID 10/30/18 07/04/19 Atorvastatin Calcium 40 mg PO DAILY 07/04/19 07/04/19 Cefadroxil [Duricef] 500 mg PO BID 07/04/19 07/04/19 Celecoxib 200 mg PO DAILY 07/04/19 07/04/19 Clopidogrel [Plavix] 75 mg PO DAILY 07/04/19 07/04/19 Levetiracetam [Keppra] 500 mg PO BID 07/04/19 07/04/19 - Allergies Allergies/Adverse Reactions: Allergies Allergy/AdvReac Type Severity Reaction Status Date / Time cinnamon Allergy Unknown Verified 09/11/19 11:06 pregabalin [From Lyrica] Allergy Unknown Verified 09/11/19 11:06 - Social History Does the pt smoke?: Yes Smoking Status: Current every day smoker Does the pt drink ETOH?: Yes Does the pt have substance abuse?: Yes - Immunizations Immunizations are current?: Yes - POLST Patient has POLST: No POLST Status: Full Code PD ED PE NORMAL - Vitals Vital signs reviewed: Yes (Hypertensive mild) - General General: Alert and oriented X 3, No acute distress, Well developed/nourished - HEENT HEENT: Atraumatic, PERRL, EOMI - Respiratory Respiratory: No respiratory distress - Derm Derm: Normal color, Warm and dry, No rash - Extremities Extremities: No deformity, Other (To the left anterior calf there is bruising with ecchymosis and swelling there is a round ecchymotic area about 1.5 cm in diameter with a central point of erythema as well. Consistent with a drawer knob contusion. There is another contusion with abrasion as well in a lunar fashion. The areas affected are in the mid calf on the left anterior medial. 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, No motor deficit, No sensory deficit, Normal speech Eye Opening: Spontaneous Motor: Obeys Commands Verbal: Oriented GCS Score: 15 - Psych Psych: Normal mood, Normal affect Results - Vitals Vitals: Vital Signs - 24 hr 09/11/19 11:07 Temperature 36.8 C Heart Rate 100 Respiratory 16 Rate Blood Pressure 123/88 H O2 Saturation 98 Oxygen O2 Source Room air PD MEDICAL DECISION MAKING - ED course Complexity details: reviewed results, re-evaluated patient, considered differential, d/w patient, d/w family ED course: 53-year-old male has fallen in his home bruising his anterior calf with ecchymotic bruises present. There is minimal swelling. X-ray does not demons trate any evidence of fracture. Patient is discharged with instructions for bruises Departure - Departure Disposition: 01 Home, Self Care Clinical Impression: Contusion of lower limb, left Qualifiers: Encounter type: initial encounter Qualified Code(s): S80.12XA - Contusion of left lower leg, initial encounter Condition: Stable Instructions: ED Contusion Lower Ext Follow-Up: CORINNE BURROUGHS MD [Primary Care Provider] -
[2019-09-11 12:34] VITALS: BP 130/81
== END 2019-09-11 12:34 | disposition home or self-care (01) ==
LOC: ED 10:59
DX: S80.12XA Contusion of left lower leg, initial encounter (principal); S80.812A Abrasion, left lower leg, initial encounter; W18.30XA Fall on same level, unspecified, initial encounter; Y92.008 Other place in unspecified non-institutional (private) residence as the place of occurrence of the external cause; I10 Essential (primary) hypertension; E11.9 Type 2 diabetes mellitus without complications; Z79.4 Long term (current) use of insulin; Z86.73 Personal history of transient ischemic attack (TIA), and cerebral infarction without residual deficits; Z79.02 Long term (current) use of antithrombotics/antiplatelets; Z79.82 Long term (current) use of aspirin; F17.200 Nicotine dependence, unspecified, uncomplicated
CPT/HCPCS: 99282; 99283

== ENCOUNTER 2019-09-20 13:58 | Outpatient (CLI) | payer MEDICAID ==
[2019-09-20 19:02] LABS: CALCIUM 9.3 mg/dL (8.5-10.3); CREATININE 0.8 mg/dL (0.6-1.2)
[2019-09-20 19:24] LABS: HEMOGLOBIN A1C 1.68 g/dL; HEMOGLOBIN A1C % 11.8 % (4.6-6.2)
== END 2019-09-20 23:59 | disposition home or self-care (01) ==
LOC: LAB.WCP 13:58
PROVIDERS: ATTEND Family Medicine
DX: E11.9 Type 2 diabetes mellitus without complications (principal); Z79.4 Long term (current) use of insulin; R39.11 Hesitancy of micturition; M79.662 Pain in left lower leg; Z12.5 Encounter for screening for malignant neoplasm of prostate
CPT/HCPCS: 36415; 80048; 81001; 82043; 82570; 83036; 84153; 85379

== ENCOUNTER 2019-09-21 08:00 | Outpatient (CLI) | payer MEDICAID ==
[2019-09-21 18:27] LABS: CREATININE,URINE 48.9 mg/dL; MICROALBUM/CREATININE RATIO,UR 14.3 ug/mg (<30.0); MICROALBUMIN,URINE 0.7 mg/dL (0-300.0)
[2019-09-21 19:06] LABS: BILIRUBIN,URINE NEGATIVE (NEGATIVE); GLUCOSE, URINE (UA) >=1000 mg/dL (NEGATIVE); KETONES,URINE (UA) NEGATIVE (NEGATIVE); LEUKOCYTE ESTERASE, URINE NEGATIVE (NEGATIVE); NITRITE,URINE NEGATIVE (NEGATIVE); OCCULT BLOOD,URINE NEGATIVE (NEGATIVE); PH,URINE 7.5 PH (5.0-7.5); PROTEIN,URINE NEGATIVE (NEGATIVE); UROBILINOGEN,URINE 0.2 (NORMAL) E.U./dL (NORMAL)
[2019-09-21 19:19] LABS: CLARITY,URINE CLEAR (CLEAR)
[2019-09-21 19:33] LABS: BACTERIA,URINE None Seen /HPF (None Seen); RBC,URINE None Seen /HPF (0-5); SQUAMOUS EPITHELIAL CELL,UR NONE SEEN (<= Few)
== END 2019-09-21 23:59 | disposition home or self-care (01) ==
LOC: LAB.WCP 08:00
PROVIDERS: ATTEND Family Medicine
DX: E11.65 Type 2 diabetes mellitus with hyperglycemia (principal); Z79.4 Long term (current) use of insulin; R39.11 Hesitancy of micturition; Z12.5 Encounter for screening for malignant neoplasm of prostate; M79.662 Pain in left lower leg
CPT/HCPCS: 81001; 82043; 82570

== ENCOUNTER 2019-09-24 13:19 | Outpatient (CLI) | payer MEDICAID ==
--- NOTE | 2019-09-24 13:34 | SLEEP CARE CONSULTATION ---
Information from patient questionnaire entered by Terese Li. I have reviewed and concur with the information entered by Terese Li. This document represents the service I personally performed and the decisions made by me, Jose J Ortiz MD, [facility]. History of Present Illness Service Date and Time: 09/24/2019 1319 Reason for Visit: New patient Chief Complaint: reports: Other (possible seizures) Duration of Symptoms: since last june Usual bedtime: 11 pm Time it takes to fall asleep: 5-10 mins Snores at night: Yes (i have been told i do) Observed to quit breathing while asleep: No Sleeps alone due to snoring: No Number of times waking at night: 1 Reasons for waking at night: reports: Pain, Bathroom Toss, Turn, or Twitch while sleeping: Yes Recalls having dreams: Yes Usually gets out of bed at: 7-9 am Feels refreshed in the morning: Yes Morning headache: No Sleepy or fatigued during the day: No Ever fallen asleep while driving: No Takes day naps: Yes Dreams during day naps: Yes Prior sleep studies: No Additional HPI information: The patient is here mainly because he had episodes of seizure, last one being 3 months ago. As part of the seizure workup, he was recommended by his drafter heating and ventilating to have a sleep study. He does snore at home. Nobody has seen him quit breathing. He wakes up 1 - 2 times a night. He does not feel sleepy during the day but can take a nap easily. He only takes cyclobenzaprine for pain. No family history of sleep apnea. - Parasomnia Symptoms Ever been unable to move upon waking from sleep: No Ever felt weak in the knees when startled or emotional: No Bothered by creepy, crawly, restless sensations in legs: No Problems with memory or concentration: No Subjective Initial [place] Sleepiness Scale score: 10 (in 2019) Past Medical History Past Medical History: reports: Claustrophobia, Diabetes, Arthritis, Hypothyroidism, Anxiety, Other (Complex Regonial pain syndrome, Figueroa-figueroa disease, Torn ACL) Social History The patient's occupation is a retired. Patient is Legally and lives in [place]. Have you smoked in the past 12 months: No Years of smokin Quit date: 07-11-13 Alcohol use: No Caffeine use: Yes Caffeine amount and frequency: 2 cups a day Family History Family history of sleep disordered breathing: No (only know mothers side) Allergies and Home Medications Drug allergies reviewed: Yes Home medication list reviewed: Yes Review of Systems Cardiovascular: denies: high blood pressure, palpitations, chest pain, irregular heart rate or pulse, leg or foot swelling, have to sleep sitting up, other Respiratory: denies: shortness of breath, wheeze, sputum production, chronic cough, other Gastrointestinal: denies: heartburn, difficulty swallowing, nausea, vomitting, diarrhea, abdominal pain, other Urinary: reports: incontinence, frequency Neurological: reports: headaches, seizure, gait or balance problems Psychiatric: reports: anxiety, claustrophobia Endocrine: reports: thyroid disease, increased urination Musculoskeletal: reports: joint pain, neck pain, back pain Immunologic: reports: allergies to food or environment Physical Exam Vital signs obtained and entered by: Due to COVID-19, physical exam was deferred Height: 5 ft 9 in Impression and Plan IMPRESSION: 1. Possible obstructive sleep apnea-hypopnea, given history of loud snore. Narrow oropharynx and obesity are common predisposing factors for obstructive sleep apnea-hypopnea syndrome. Untreated obstructive sleep apnea-hypopnea may facilitate seizure. Pathophysiology of sleep-disordered breathing was discussed. For further evaluation, I recommend proceeding to in-laboratory polysomnography.. Plan: 1. Schedule an in-laboratory polysomnography. 2. Avoid alcohol, sedative and muscle relaxant around bedtime. 3. Attempt to lose weight. 4. Return in 1 to 2 weeks after the study to discuss results and initiate therapy. Visit Type: In Office Time Spent with Patient (minutes): 15 Provider Statement: I spent 100% of the Face to Face Visit with the patient with greater than 50% spent counseling the patient and coordination of care.
== END 2019-09-24 13:20 | disposition home or self-care (01) ==
LOC: SC 13:19
PROVIDERS: ATTEND Internal Medicine Pulmonary Disease
DX: R06.83 Snoring (principal); R56.9 Unspecified convulsions; E66.9 Obesity, unspecified; E11.9 Type 2 diabetes mellitus without complications
CPT/HCPCS: 99203; 99212

== ENCOUNTER 2019-10-17 18:32 | Outpatient (CLI) | payer MEDICAID ==
--- NOTE | 2019-10-17 19:31 | Ultrasound Report ---
PROCEDURE: Abdomen Limited INDICATIONS: ABD DISCOMFORT TECHNIQUE: Real-time scanning was performed of the abdominal and retroperitoneal organs, with image documentatio n. COMPARISON: CT of abdomen and pelvis dated 04/14/2019. FINDINGS: Liver: Liver is normal in size. Diffusely increased liver parenchymal echotexture is seen suggestive of hepatic steatosis. No discrete hepatic lesion. Gallbladder: There is no gallstone. No gallbladder wall thickening or pericholecystic fluid. No sonog raphic Ruiz's sign. Biliary ducts: Intrahepatic bile ducts are non-dilated. Extrahepatic bile duct caliber measures 5.5 mm. Normal is 6-7 mm or less in diameter, or 10 mm or less post-cholecystectomy. Pancreas: Visualized portions of the pancreas are sonographically normal in size. Echogenic pancreat ic parenchyma is seen. Kidneys: Right kidney measures 12.9 cm in length. No hydronephrosis or nephrolithiasis. No solid mas ses. Abdominal aorta and IVC are normal in size. Focused ultrasound examination of right lower quadrant at patient's reported area of pain shows trevor l peristalsis seen bowel loops. No gross abnormal bowel wall thickening is seen. No abdominal free fl uid. IMPRESSION: 1. Hepatic steatosis. No discrete hepatic lesion. 2. Normal-appearing gallbladder. No biliary ductal dilatation. 3. Nonspecific increased pancreatic parenchymal echotexture. No discrete pancreatic mass. 4. No gross abnormality is seen in right lower quadrant at patient's reported area of pain. Reviewed by: Justin Byrd MD on 10/17/2019 7:30 PM PDT Approved by: Justin Byrd MD on 10/17/2019 7:30 PM PDT Station ID: [id number]
== END 2019-10-17 18:33 | disposition home or self-care (01) ==
LOC: DI 18:32
PROVIDERS: ATTEND Family Medicine
DX: K76.0 Fatty (change of) liver, not elsewhere classified (principal)
CPT/HCPCS: 76705

== ENCOUNTER 2019-11-09 19:30 | Outpatient (CLI) | payer MEDICAID | END 2019-11-09 23:59 | disposition home or self-care (01) | LOC: SC 19:30 | PROVIDERS: ATTEND Internal Medicine Pulmonary Disease | DX: G47.33 Obstructive sleep apnea (adult) (pediatric) (principal) | CPT/HCPCS: 95806 ==

== ENCOUNTER 2019-11-15 12:27 | Outpatient (CLI) | payer MEDICAID ==
--- NOTE | 2019-11-15 16:33 | XRAY Report ---
PROCEDURE: Hip w/Pelvis 2-3V RT INDICATIONS: HIP JOINT PAIN, RIGHT TECHNIQUE: AP pelvis with lateral view(s) of the bilateral hip(s). COMPARISON: None. FINDINGS: Bones: No fractures or dislocations. Pelvic ring appears intact. No suspicious bony lesions. Mild osseous hypertrophy noted in the right hip. Soft tissues: The visualized bowel gas pattern is normal. No suspicious soft tissue calcifications. Vasectomy clips. IMPRESSION: 1. Mild right hip osteoarthritis. 2. No fracture. No acute osseous lesion. If there is continued clinical concern for pathology, then r epeat plain film radiographs (7-10 days) or advanced imaging (CT, MR, bone scan) should be considered for further evaluation. Reviewed by: Nadia Chilel MD, PhD on 11/15/2019 4:31 PM PDT Approved by: Nadia Chilel MD, PhD on 11/15/2019 4:31 PM PDT Station ID: [id number]
== END 2019-11-15 12:28 | disposition home or self-care (01) ==
LOC: DI 12:27
PROVIDERS: ATTEND Family Medicine
DX: M16.11 Unilateral primary osteoarthritis, right hip (principal)

== ENCOUNTER 2019-11-24 19:45 | Outpatient (CLI) | payer MEDICAID ==
--- NOTE | 2019-11-26 11:11 | Ultrasound Report ---
PROCEDURE: Testicle INDICATIONS: SCROTAL PAIN TECHNIQUE: Real-time scanning was performed of the scrotum and testicles, with image documentation. Color and p ulse Doppler interrogation was performed of both testicles. COMPARISON: Prior similar study 11/23/2017. FINDINGS: Right: Testicle is normal in size at 1.7 x 2.7 x 4.3 cm, and homogenous in echotexture. Epididymis is normal in overall size and morphology. There is a small right-sided hydrocele and a small right-si ded varicocele. Overlying scrotal skin is normal in thickness. Left: Testicle is normal in size at 1.6 x 2.7 x 4.1 cm, and homogeneous in echotexture. Epididymis is normal in overall size and morphology. There is a very small left-sided hydrocele and varicocele. Overlying scrotal skin is increased in thickness. Doppler: Color and pulse Doppler demonstrate normal and symmetric arterial flow in both testicles. IMPRESSION: Small bilateral hydroceles and varicoceles, but a definite source of acute pain is not found. The get n is greater on the right than the left, and there is mild left-sided scrotal wall thickening. No sig n of testicular torsion or hyperemia bilaterally. No inguinal hernia found. Reviewed by: Pancho Crowell MD on 11/26/2019 11:09 AM PDT Approved by: Pancho Crowell MD on 11/26/2019 11:09 AM PDT Station ID: [id number]
== END 2019-11-24 19:46 | disposition home or self-care (01) ==
LOC: DI 19:45
PROVIDERS: ATTEND Urology
DX: N50.82 Scrotal pain (principal); I86.1 Scrotal varices; N43.3 Hydrocele, unspecified
CPT/HCPCS: 76870

== ENCOUNTER 2019-11-25 08:34 | Outpatient (CLI) | payer MEDICAID | END 2019-11-25 08:35 | disposition critical access hospital (66) | LOC: EMS 08:34 | PROVIDERS: ATTEND Surgery | DX: R45.851 Suicidal ideations (principal) | CPT/HCPCS: A0425; A0429; A0999 ==

== ENCOUNTER 2019-11-25 08:45 | Emergency (ER) | payer MEDICAID ==
[2019-11-25] MEDS ORDERED: HYDROmorphone 1 MG/ML CARPUJECT IM STA (09:17)
[2019-11-25] MEDS ORDERED: KETOROLAC 60 MG/2 ML VIAL IM STA (09:17)
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
[2019-11-25 10:26] LABS: MUDS CUTOFF CONCENTRATIONS CUTOFF CONC BELOW:
[2019-11-25 10:39] LABS: AMPHETAMINE SCREEN,URINE NEGATIVE (NEGATIVE); BENZODIAZEPINES SCREEN, URINE NEGATIVE (NEGATIVE); COCAINE SCREEN URINE NEGATIVE (NEGATIVE); METHADONE SCREEN, URINE NEGATIVE (NEGATIVE); METHAMPHETAMINES SCREEN, URINE NEGATIVE (NEGATIVE); OPIATE SCREEN, URINE NEGATIVE (NEGATIVE); OXYCODONE SCREEN, URINE NEGATIVE (NEGATIVE); PROPOXYPHENE SCREEN, URINE NEGATIVE (NEGATIVE); TRICYCLIC ANTIDEPRESSANT,URINE NEGATIVE (NEGATIVE)
[2019-11-25] MEDS ORDERED: LORazepam 1 MG TABLET PO STA (12:48)
--- NOTE | 2019-11-25 13:15 | XRAY Report ---
PROCEDURE: Lumbar Spine 2 View INDICATIONS: low back pain TECHNIQUE: 2 views of the lumbar spine were acquired. COMPARISON: None. FINDINGS: Bones: 5 [id number] vertebrae are present. There is normal bony alignment. No vertebral body compression fractures. No suspicious bony lesions. Multilevel endplate osteophytes and facet hypert rophy. Soft tissues: Overlying bowel gas pattern is normal. No suspicious soft tissue calcifications. IMPRESSION: Multilevel degenerative disc and facet disease. No acute fracture. No osseous lesion. If symptoms and/or clinical suspicion for pathology continue, further assessment with repeat plain film s, or advanced imaging (e.g., CT, MRI, or bone scan) is recommended for further assessment. Reviewed by: Flor Ayala MD on 11/25/2019 1:14 PM PDT Approved by: Flor Ayala MD on 11/25/2019 1:14 PM PDT Station ID: [id number]
[2019-11-25 16:24] VITALS: BP 130/82
== END 2019-11-25 17:15 | disposition home or self-care (01) ==
LOC: EDUNIT# → ED 08:45
DX: F41.9 Anxiety disorder, unspecified (principal); F33.1 Major depressive disorder, recurrent, moderate; Z63.8 Other specified problems related to primary support group; M47.816 Spondylosis without myelopathy or radiculopathy, lumbar region; M51.36 Other intervertebral disc degeneration, lumbar region; Z79.02 Long term (current) use of antithrombotics/antiplatelets; I10 Essential (primary) hypertension; E11.9 Type 2 diabetes mellitus without complications; Z79.4 Long term (current) use of insulin; F17.200 Nicotine dependence, unspecified, uncomplicated; M54.9 Dorsalgia, unspecified; G89.29 Other chronic pain
CPT/HCPCS: 36415; 72100; 80306; 80320; 96372; 99283; 99284; J1170; J8499

== ENCOUNTER 2019-11-28 14:48 | Outpatient (CLI) | payer MEDICAID ==
--- NOTE | 2019-11-28 15:23 | SLEEP CARE CONSULTATION ---
Information from patient questionnaire entered by Yanick Livingston. I have reviewed and concur with the information entered by Yanick Livingston. This document represents the service I personally performed and the decisions made by , Sara Gatica ARNP. History of Present Illness Service Date and Time: 11/28/2019 1448 Initial [place] Sleepiness Scale score: 10 (in 2019) Current [place] Sleepiness Scale score: 4 Additional HPI information: KURTIS BARNES returns with spouse for follow up and results of the recently performed home sleep study. He was found to have mild obstructive sleep apnea with mild hypoxia. I explained the pathophysiology behind obstructive sleep apnea. We then spent quite a bit of time discussing different treatment options. For mild obstructive sleep apnea, surgery and oral appliance are alternatives to nasal CPAP therapy but in moderate or severe cases, nasal CPAP is the most effective and reliable treatment. Because apnea is primarily in supine position, then positional management therapy could be effective. Methods discussed such as positioning with pillows, using a T-shirt with tennis balls in the back, and shown commercial products that have a pillow format on back to prevent supine sleep. I reviewed the impact of weight changes on sleep apnea and strongly recommended losing weight. After some discussion, the patient would like to try positional management therapy because he is very claustrophobic and does not think he can tolerated a CPAP mask for therpy. AASM patient education Non Pap treatment pamphlet reviewed and given to patient. Sleep Study - Results Type of Sleep Study: Home sleep study Prior sleep studies: No Polysomnography/Home Sleep Study results: SLEEP TIME AND EFFICIENCY: The sleep study recording began at 12:27:45 AM and ended at 08:13:59 AM. Total recording time was 466.2 minutes. The total sleep time was 382.5 minutes. The sleep efficiency was 82.0 percent. The patient spent 172.7 minutes supine, and spent 209.8 minutes non-supine. The patients own estimate of sleep time was 7.80 hours. RESPIRATORY DATA: The AHI in this report is indexed to sleep time based on actigraphy. The AASM defines this as JACQUI. The AHI on this type 3 Home Sleep Study may understate the AHI determined on a type 1 or 2 study, since EEG is not monitored resulting in the inability to score non-desaturating hypopneas. Based on 4% Calculation: The AHI4% calculation of 5.0 per hour of recording time was based on a total of 22 scored apneas and 10 scored hypopneas with 4% desaturations. Supine AHI4%: 9.7 per hour. Non-supine AHI4%: 1.1 per hour. Oxygen Summary: Patient's baseline O2 saturation was 97.0 %. The patient spent 0.1 minutes at an oxygen saturation less than 90%, and 0.1 minutes less than 85%. The desaturation index was 1.6 events per hour sleep time. The lowest saturation was 82.6 %. SNORING: The percent of the study time spent snoring was 0.0 %. The Snoring Count was 0 . The Snoring Index was 0.0 PULSE RATE REVIEW: The mean heart rate was 82 beats per minute. The rate ranged from a low of 52 to a high of 110 beats per minute. DIAGNOSIS CODE: This patient has mild obstructive sleep apnea with minimal hypoxia. Allergies and Home Medications Drug allergies reviewed: Yes (pregablin, cinnamon, adhesive tape) Home medication list reviewed: Yes (increase in pain medication, unsure of name) Review of Systems Review of systems same as previous: No (2 hernias, degenerative hips, R>L) Physical Exam Heart Rate: 108 (in pain 6/10) O2 Saturation: 98 Height: 5 ft 9 in Weight: 179 lb 12.8 oz Body Mass Index: 26.5 BMI Classification: Overweight Impression and Plan 1. Obstructive Sleep Apnea-Hypopnea Syndrome, mild, with lowest oxygen saturation of 82.6%. Obviously this is the cause of the patients symptoms of unrefreshed sleep, and excessive daytime sleepiness. Positive pressure therapy could benefit his overall health. Patient decides to try positional management therapy since he is claustrophobic and feels he would not tolerate wearing a mask. Since patients apnea is primarily in supine position, patient may try positional therapy and he agreed with plan of care. He is also advised to lose weight as this will reduce snoring and apnea. An oral appliance can also be used for snoring but often is not covered by insurance. He will be supplied a list of accredited dentists in the area that he may check into to see if he would be able to get an oral appliance. Follow up is scheduled for one month to check effectiveness. * Positional management therapy. * Attempt to lose weight. * Avoid alcohol consumption near bedtime. * Patient to check into dentists and insurance coverage for oral device. * The patient is again cautioned about driving until sleepiness completely resolves. * Return one month after beginning positional therapy. I will assess response to therapy at that time. Visit Type: In Office Time Spent with Patient (minutes): 17 Provider Statement: I spent 100% of the Face to Face Visit with the patient with greater than 50% spent counseling the patient and coordination of care.
== END 2019-11-28 14:49 | disposition home or self-care (01) ==
LOC: SC 14:48
PROVIDERS: ATTEND Nurse Practitioner Family
DX: G47.33 Obstructive sleep apnea (adult) (pediatric) (principal); E66.3 Overweight; Z68.25 Body mass index [BMI] 25.0-25.9, adult
CPT/HCPCS: 99212; 99213

== ENCOUNTER 2019-12-02 02:25 | Emergency (ER) | payer MEDICAID ==
--- NOTE | 2019-12-02 02:27 | ED Physician Documentation ---
History of Present Illness - Stated complaint Stated Complaint: BACK/AB PX - History obtained from History obtained from: Patient - Additonal information Additional information: 54 y/o m p/w bilateral flank pain and urinary frequency, dysuria, hesitation and waking up several times a night to urinate. denies fevers, denies chest pain, sob, f/c/ns. Review of Systems Constitutional: reports: Reviewed and negative Eyes: reports: Reviewed and negative Ears: reports: Reviewed and negative Nose: reports: Reviewed and negative Throat: reports: Reviewed and negative Cardiac: reports: Reviewed and negative Respiratory: reports: Reviewed and negative GI: reports: Reviewed and negative : reports: Dysuria, Frequency, Hesitancy, Unable to Void, Incontinent Skin: reports: Reviewed and negative Musculoskeletal: reports: Reviewed and negative Neurologic: reports: Reviewed and negative Psychiatric: reports: Reviewed and negative Endocrine: reports: Reviewed and negative Immunocompromised: reports: Reviewed and negative PD PAST MEDICAL HISTORY - Past Medical History Cardiovascular: Hypertension, High cholesterol, [place], Murmur Respiratory: None Neuro: None Endocrine/Autoimmune: Type 2 diabetes, HyPOthyroidism GI: None : Kidney stones HEENT: None Psych: Depression, Bipolar disorder Musculoskeletal: Chronic back pain Derm: Other - Past Surgical History Past Surgical History: Yes General: Appendectomy Ortho: ACL reconstruction - Present Medications Home Medications: Ambulatory Orders Medication Instructions Recorded Confirmed Insulin Glargine,Hum.rec.anlog 25 unit SUBQ QPM 10/27/17 12/02/19 [Basaglar Kwikpen U-100] methIMAzole [Methimazole] 5 mg PO BID 10/30/18 12/02/19 Cefadroxil [Duricef] 500 mg PO BID 07/04/19 12/02/19 Clopidogrel [Plavix] 75 mg PO DAILY 07/04/19 12/02/19 Cephalexin [Keflex] 500 mg PO BID 11/25/19 12/02/19 Cyclobenzaprine [Flexeril] 10 mg PO TID PRN 11/25/19 12/02/19 DULoxetine [Cymbalta] 20 mg PO DAILY 11/25/19 12/02/19 Sitagliptin Phosphate [Januvia] 25 mg PO DAILY 11/25/19 12/02/19 Sulfamethox/Trimeth 800/160 1 each PO BID 14 Days #28 tablet 12/02/19 [Bactrim Ds 800/160] Tamsulosin HCl [Flomax] 0.4 mg PO DAILY #7 cap.er.24h 12/02/19 - Allergies Allergies/Adverse Reactions: Allergies Allergy/AdvReac Type Severity Reaction Status Date / Time cinnamon Allergy Unknown Verified 12/02/19 02:55 pregabalin [From Lyrica] Allergy Unknown Verified 12/02/19 02:55 - Social History Does the pt smoke?: Yes Smoking Status: Current every day smoker Does the pt drink ETOH?: Yes Does the pt have substance abuse?: Yes - Immunizations Immunizations are current?: Yes - POLST Patient has POLST: No POLST Status: Full Code PD ED PE NORMAL - Vitals Vital signs reviewed: Yes - General General: Alert and oriented X 3, No acute distress, Well developed/nourished - HEENT HEENT: Atraumatic, PERRL, Moist mucous membranes, Pharynx benign - Neck Neck: Supple, no meningeal sign - Cardiac Cardiac: RRR, No murmur, Strong equal pulses - Respiratory Respiratory: Clear bilaterally - Abdomen Abdomen: Normal bowel sounds, Soft, Non tender, Non distended, No organomegaly - Male 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 Good rectal tone no blood) - Back Back: Other (bilateral cva ttp) - Derm Derm: Warm and dry - Extremities Extremities: No deformity, No tenderness to palpate, Normal ROM s pain, No edema, No calf tenderness / cord - Neuro Neuro: Alert and oriented X 3, postpartum rn 2-12 intact, No motor deficit, No sensory deficit, Normal speech - Psych Psych: Normal mood, Normal affect Results - Vitals Vitals: Vital Signs - 24 hr 12/02/19 12/02/19 12/02/19 02:25 03:18 03:36 Temperature 36.7 C Heart Rate 97 86 88 Respiratory 18 14 16 Rate Blood Pressure 159/103 H 137/96 H 120/84 H O2 Saturation 98 96 97 12/02/19 04:05 Temperature 36.5 C Heart Rate 84 Respiratory 14 Rate Blood Pressure 134/91 H O2 Saturation 97 Oxygen O2 Source Room air - Labs Labs: Laboratory Tests 12/02/19 12/02/1912/01/20 02:40 02:45 02:45 WBC 6.3 RBC 4.76 Hgb 14.9 Hct 44.1 MCV 92.6 MCH 31.3 H MCHC 33.8 RDW 12.1 Plt Count 164 MPV 11.7 H Neut # (Auto) 2.9 Lymph # (Auto) 2.3 [place] # (Auto) 0.9 Eos # (Auto) 0.2 Baso # (Auto) 0.0 Absolute Nucleated RBC 0.00 Nucleated RBC % 0.0 Sodium 137 Potassium 3.8 Chloride 101 Carbon Dioxide 27 Anion Gap 9.0 BUN 14 Creatinine 0.8 Estimated GFR (MDRD) 100 Glucose 302 H Lactic Acid Calcium 9.1 Total Bilirubin 0.4 AST 17 ALT 24 Alkaline Phosphatase 78 Total Protein 6.9 Albumin 4.3 Globulin 2.6 Albumin/Globulin Ratio 1.7 Lipase 29 Urine Color YELLOW Urine Clarity CLEAR Urine pH 6.0 Ur Specific [place] 1.025 Urine Protein NEGATIVE Urine Glucose (UA) >=1000 H Urine Ketones TRACE Urine Occult Blood NEGATIVE Urine Nitrite NEGATIVE Urine Bilirubin NEGATIVE Urine Urobilinogen 0.2 (NORMAL) Ur Leukocyte Esterase NEGATIVE Ur Microscopic Review NOT INDICATED Urine Culture Comments NOT INDICATED 12/02/19 02:50 WBC RBC Hgb Hct MCV MCH MCHC RDW Plt Count MPV Neut # (Auto) Lymph # (Auto) [place] # (Auto) Eos # (Auto) Baso # (Auto) Absolute Nucleated RBC Nucleated RBC % Sodium Potassium Chloride Carbon Dioxide Anion Gap BUN Creatinine Estimated GFR (MDRD) Glucose Lactic Acid 1.3 Calcium Total Bilirubin AST ALT Alkaline Phosphatase Total Protein Albumin Globulin Albumin/Globulin Ratio Lipase Urine Color Urine Clarity Urine pH Ur Specific [place] Urine Protein Urine Glucose (UA) Urine Ketones Urine Occult Blood Urine Nitrite Urine Bilirubin Urine Urobilinogen Ur Leukocyte Esterase Ur Microscopic Review Urine Culture Comments PD MEDICAL DECISION MAKING - ED course Complexity details: considered differential (kidney stones, cystitis, prostatitis, bph.) ED course: 54-year-old male presents with urinary frequency worse at night bilateral flank pain and pelvic discomfort weak urinary stream dribbling occasional incontinence after voiding and urinary retention. Labs are unremarkable with the exception of hyperglycemia but no anion gap. His CT scan shows no stones or hydronephrosis dense colonic fecal retention without mechanical obstruction and appendix not seen. Patient will be treated for prostatitis and BPH with Bactrim and Flomax. He should follow-up with his primary care provider on Tuesday. Departure - Departure Disposition: Home, Self Care Clinical Impression: Prostatitis Qualifiers: Prostatitis type: unspecified Qualified Code(s): N41.9 - Inflammatory disease of prostate, unspecified BPH (benign prostatic hyperplasia) Qualifiers: Lower urinary tract symptom presence: symptoms present Lower urinary tract symptom detail: urinary frequency Qualified Code(s): N40.1 - Benign prostatic hyperplasia with lower urinary tract symptoms Diabetes Qualifiers: Diabetes mellitus type: other specified (including AMBREEN) Diabetes mellitus terminal computer operator insulin use: unspecified terminal computer operator insulin use status Diabetes mellitus complication status: with other specified complication Qualified Code(s): E13.69 - Other specified diabetes mellitus with other specified complication Condition: Stable Instructions: ED Prostatitis Follow-Up: CORINNE BURROUGHS MD [Primary Care Provider] - Tomorrow Prescriptions: Sulfamethox/Trimeth 800/160 [Bactrim Ds 800/160] 1 each PO BID 14 Days #28 tablet Tamsulosin HCl [Flomax] 0.4 mg PO DAILY #7 cap.er.24h Comments: Take antibiotics as directed. Take Flomax as directed. Please follow-up with your primary care provider on Tuesday.
[2019-12-02 02:46] LABS: BILIRUBIN,URINE NEGATIVE (NEGATIVE); GLUCOSE, URINE (UA) >=1000 mg/dL (NEGATIVE); KETONES,URINE (UA) TRACE mg/dL (NEGATIVE); LEUKOCYTE ESTERASE, URINE NEGATIVE (NEGATIVE); NITRITE,URINE NEGATIVE (NEGATIVE); OCCULT BLOOD,URINE NEGATIVE (NEGATIVE); PROTEIN,URINE NEGATIVE (NEGATIVE); UROBILINOGEN,URINE 0.2 (NORMAL) E.U./dL (NORMAL)
[2019-12-02 02:47] LABS: CLARITY,URINE CLEAR (CLEAR)
[2019-12-02 02:54] LABS: BASOPHILS % (AUTO) 0.6 %; EOSINOPHILS # (AUTO) 0.2 10^3/uL (0.0-0.7); EOSINOPHILS % (AUTO) 2.5 %; HGB - HEMOGLOBIN 14.9 g/dL (14.0-18.0); LYMPHOCYTES # (AUTO) 2.3 10^3/uL (1.5-3.5); LYMPHOCYTES % (AUTO) 36.6 %; MEAN CORPUSCULAR HEMOGLOBIN 31.3 pg (27.0-31.0); MEAN CORPUSCULAR HGB CONC 33.8 g/dL (32.0-36.0); MEAN CORPUSCULAR VOLUME 92.6 fL (80.0-94.0); MEAN PLATELET VOLUME 11.7 fL (7.4-11.4); MONOCYTES # (AUTO) 0.9 10^3/uL (0.0-1.0); MONOCYTES % (AUTO) 13.4 %; NEUTROPHILS # (AUTO) 2.9 10^3/uL (1.5-6.6); NEUTROPHILS % (AUTO) 46.4 %; PLT - PLATELET COUNT 164 10^3/uL (130-450); RED BLOOD COUNT 4.76 10^6/uL (4.70-6.10); RED CELL DISTRIBUTION WIDTH 12.1 % (12.0-15.0); WHITE BLOOD COUNT 6.3 x10^3/uL (4.8-10.8)
[2019-12-02] MEDS ORDERED: MORPHINE 2 MG/ML CARPUJECT IVP STA (02:55)
[2019-12-02] MEDS ORDERED: ONDANSETRON 4 MG/2 ML VIAL IVP STA (02:55)
[2019-12-02] MEDS ORDERED: SODIUM CHLORIDE 0.9% 1,000 ML IV STA (02:55)
[2019-12-02 03:10] LABS: ALBUMIN 4.3 g/dL (3.2-5.5); ALBUMIN/GLOBULIN RATIO 1.7 (1.0-2.2); BILIRUBIN,TOTAL 0.4 mg/dL (0.2-1.0); CALCIUM 9.1 mg/dL (8.5-10.3); CREATININE 0.8 mg/dL (0.6-1.2); TOTAL PROTEIN 6.9 g/dL (6.7-8.2)
[2019-12-02] MEDS ORDERED: TAMSULOSIN 0.4 MG CAPSULE PO STA (04:11)
[2019-12-02] MEDS ORDERED: SULFAMETH/TRIMETH DS 800/160 MG TABLET PO STA (04:11)
[2019-12-02 04:12] VITALS: BP 134/91
--- NOTE | 2019-12-02 09:46 | CT Report ---
PROCEDURE: Abdomen/Pelvis WO INDICATIONS: bilateral flank pain TECHNIQUE: Noncontrast 5 mm thick sections acquired from the diaphragms to the symphysis. 5 mm coronal and sagi ttal reformats were then performed. For radiation dose reduction, the following was used: automated exposure control, adjustment of mA and/or kV according to patient size. COMPARISON: Prior abdomen and pelvis CT examinations 04/14/2019, 02/11/2018, 12/17/2016, 10/30/2016, an d 10/22/2016. Correlation is also made with lumbar spine plain films 11/25/2019 and hip plain films 11/02. Correlation is also made with abdomen ultrasound 10/17/2019. FINDINGS: Image quality: Excellent. ABDOMEN: Lung bases: Lung bases are clear. Heart size is normal. Gynecomastia is incidentally noted. Solid organs: Liver and spleen are normal in size. Gallbladder wall does not appear thickened. P ancreas is normal in contours. No adrenal nodules. Kidneys are normal in size, without hydronephros is or nephrolithiasis. Peritoneum and bowel: Unenhanced bowel loops demonstrate normal wall thickness and caliber. No free fluid or air. Apparent appendectomy clips are seen. A moderate amount of stool can be seen within th e colon. Nodes and vessels: No retroperitoneal or mesenteric adenopathy by size criteria. Aorta and inferior vena cava are normal in caliber. Miscellaneous: No ventral hernias. PELVIS: Genitourinary: Bladder wall thickness is normal. Vasectomy clips are seen. Miscellaneous: No inguinal hernias or adenopathy. Bones: No suspicious bony lesions. No vertebral body compression fractures. IMPRESSION: There is a moderate amount of stool seen within the colon. Please correlate with clinica l constipation. Incidental note is made of: Gynecomastia Apparent appendectomy Vasectomy Note: No significant discrepancy from the preliminary report. Reviewed by: Parrish Smith MD on 12/02/2019 8:44 AM TANNER Approved by: Parrish Smith MD on 12/02/2019 8:44 AM TANNER Station ID: [id number]
== END 2019-12-02 04:30 | disposition home or self-care (01) ==
LOC: ED 02:25
DX: N41.9 Inflammatory disease of prostate, unspecified (principal); N40.1 Benign prostatic hyperplasia with lower urinary tract symptoms; R35.0 Frequency of micturition; R33.8 Other retention of urine; R39.12 Poor urinary stream; E11.65 Type 2 diabetes mellitus with hyperglycemia; Z79.4 Long term (current) use of insulin; I10 Essential (primary) hypertension; Z79.02 Long term (current) use of antithrombotics/antiplatelets; F17.200 Nicotine dependence, unspecified, uncomplicated
CPT/HCPCS: 36415; 51798; 74176; 80053; 81003; 83605; 83690; 85025; 96361; 96374; 96375; 99283; 99284; A9270; 81001; 87086

== ENCOUNTER 2019-12-09 21:52 | Outpatient (CLI) | payer MEDICAID | END 2019-12-09 23:59 | disposition critical access hospital (66) | LOC: EMS 21:52 | PROVIDERS: ATTEND Surgery | DX: R10.30 Lower abdominal pain, unspecified (principal); R10.10 Upper abdominal pain, unspecified; R11.0 Nausea | CPT/HCPCS: A0425; A0427; A0999 ==

== ENCOUNTER 2019-12-09 22:05 | Emergency (ER) | payer MEDICAID ==
[2019-12-09] MEDS ORDERED: SODIUM CHLORIDE 0.9% 1,000 ML IV STA (22:21)
[2019-12-09 22:50] LABS: BASOPHILS % (AUTO) 0.5 %; EOSINOPHILS # (AUTO) 0.1 10^3/uL (0.0-0.7); EOSINOPHILS % (AUTO) 1.9 %; HGB - HEMOGLOBIN 14.8 g/dL (14.0-18.0); LYMPHOCYTES # (AUTO) 1.6 10^3/uL (1.5-3.5); MEAN CORPUSCULAR HEMOGLOBIN 31.6 pg (27.0-31.0); MEAN CORPUSCULAR HGB CONC 35.3 g/dL (32.0-36.0); MEAN CORPUSCULAR VOLUME 89.5 fL (80.0-94.0); MEAN PLATELET VOLUME 11.1 fL (7.4-11.4); MONOCYTES # (AUTO) 0.7 10^3/uL (0.0-1.0); MONOCYTES % (AUTO) 12.8 %; NEUTROPHILS # (AUTO) 3.3 10^3/uL (1.5-6.6); NEUTROPHILS % (AUTO) 57.3 %; PLT - PLATELET COUNT 175 10^3/uL (130-450); RED BLOOD COUNT 4.68 10^6/uL (4.70-6.10); RED CELL DISTRIBUTION WIDTH 11.9 % (12.0-15.0); WHITE BLOOD COUNT 5.8 x10^3/uL (4.8-10.8)
--- NOTE | 2019-12-09 22:54 | ED Physician Documentation ---
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 Also c/o pleuritic chest pain, dyspnea, dysurira, and BLE paresthesias and pain. Review of Systems Constitutional: denies: Fever, Chills, Sweats PD PAST MEDICAL HISTORY - Past Medical History Past Medical History: Yes Cardiovascular: Hypertension, High cholesterol, [place], Murmur Respiratory: None Neuro: None Endocrine/Autoimmune: Type 2 diabetes, HyPOthyroidism GI: None : Kidney stones HEENT: None Psych: Depression, Bipolar disorder Musculoskeletal: Chronic back pain Derm: Other - Past Surgical History Past Surgical History: Yes General: Appendectomy Ortho: ACL reconstruction - Present Medications Home Medications: Ambulatory Orders Medication Instructions Recorded Confirmed Insulin Glargine,Hum.rec.anlog 25 unit SUBQ QPM 10/27/17 12/02/19 [Basaglar Daneikpen U-100] methIMAzole [Methimazole] 5 mg PO BID 10/30/18 12/02/19 Cefadroxil [Duricef] 500 mg PO BID 07/04/19 12/02/19 Clopidogrel [Plavix] 75 mg PO DAILY 07/04/19 12/02/19 Cephalexin [Keflex] 500 mg PO BID 11/25/19 12/02/19 Cyclobenzaprine [Flexeril] 10 mg PO TID PRN 11/25/19 12/02/19 DULoxetine [Cymbalta] 20 mg PO DAILY 11/25/19 12/02/19 Sitagliptin Phosphate [Januvia] 25 mg PO DAILY 11/25/19 12/02/19 Sulfamethox/Trimeth 800/160 1 each PO BID 14 Days #28 tablet 12/02/19 [Bactrim Ds 800/160] Tamsulosin HCl [Flomax] 0.4 mg PO DAILY #7 cap.er.24h 12/02/19 - Allergies Allergies/Adverse Reactions: Allergies Allergy/AdvReac Type Severity Reaction Status Date / Time cinnamon Allergy Unknown Verified 12/09/19 22:18 pregabalin [From Lyrica] Allergy Unknown Verified 12/09/19 22:18 - Social History Does the pt smoke?: Yes Smoking Status: Current every day smoker Does the pt drink ETOH?: Yes Does the pt have substance abuse?: Yes - Immunizations Immunizations are current?: Yes - POLST Patient has POLST: No POLST Status: Full Code PD ED PE NORMAL - Vitals Vital signs reviewed: Yes - General General: Alert and oriented X 3, No acute distress, Well developed/nourished - HEENT HEENT: Moist mucous membranes - Neck Neck: Supple, no meningeal sign - Cardiac Cardiac: RRR, No murmur - Respiratory Respiratory: No respiratory distress, Clear bilaterally - Abdomen Abdomen: Soft, Non tender - Back Back: No CVA TTP - Derm Derm: Normal color, Warm and dry - Extremities Extremities: No edema - Neuro Neuro: Alert and oriented X 3 PD ED PE EXPANDED - Male Male : Circumcised, Testes descended roger, Normal lie/cremastaric, Tenderness (bilateral testicular tenderness). No: Discharge Results - Vitals Vitals: Oxygen O2 Source Room air - EKG (time done) No standard instances Rate: Rate (enter#) (97) Rhythm: NSR Smoot: LAD Intervals: Normal [place] QRS: Normal Ischemia: Normal ST segments - Labs Labs: Laboratory Tests 12/09/19 12/09/19 12/09/19 22:44 22:44 22:44 WBC 5.8 RBC 4.68 L Hgb 14.8 Hct 41.9 L MCV 89.5 MCH 31.6 H MCHC 35.3 RDW 11.9 L Plt Count 175 MPV 11.1 Neut # (Auto) 3.3 Lymph # (Auto) 1.6 [place] # (Auto) 0.7 Eos # (Auto) 0.1 Baso # (Auto) 0.0 Absolute Nucleated RBC 0.00 Nucleated RBC % 0.0 D-Dimer VBG pH 7.505 H VBG pCO2 31.2 L VBG pO2 54.5 H VBG HCO3 24.1 VBG Total CO2 25.0 VBG O2 Saturation 92.9 H VBG Base Excess 1.9 Sodium 130 L Potassium 3.5 Chloride 97 L Carbon Dioxide 21 Anion Gap 12.0 BUN 11 Creatinine 0.9 Estimated GFR (MDRD) 87 L Glucose 369 H Calcium 8.8 Total Bilirubin 0.6 AST 21 ALT 26 Alkaline Phosphatase 82 Total Protein 7.0 Albumin 4.2 Globulin 2.8 Albumin/Globulin Ratio 1.5 Lipase 54 H Urine Color Urine Clarity Urine pH Ur Specific [place] Urine Protein Urine Glucose (UA) Urine Ketones Urine Occult Blood Urine Nitrite Urine Bilirubin Urine Urobilinogen Ur Leukocyte Esterase Ur Microscopic Review Urine Culture Comments Serum Ketones NEGATIVE 12/09/19 12/09/19 22:44 22:55 WBC RBC Hgb Hct MCV MCH MCHC RDW Plt Count MPV Neut # (Auto) Lymph # (Auto) [place] # (Auto) Eos # (Auto) Baso # (Auto) Absolute Nucleated RBC Nucleated RBC % D-Dimer 617.7 H VBG pH VBG pCO2 VBG pO2 VBG HCO3 VBG Total CO2 VBG O2 Saturation VBG Base Excess Sodium Potassium Chloride Carbon Dioxide Anion Gap BUN Creatinine Estimated GFR (MDRD) Glucose Calcium Total Bilirubin AST ALT Alkaline Phosphatase Total Protein Albumin Globulin Albumin/Globulin Ratio Lipase Urine Color YELLOW Urine Clarity CLEAR Urine pH 6.0 Ur Specific [place] 1.015 Urine Protein NEGATIVE Urine Glucose (UA) >=1000 H Urine Ketones TRACE Urine Occult Blood NEGATIVE Urine Nitrite NEGATIVE Urine Bilirubin NEGATIVE Urine Urobilinogen 0.2 (NORMAL) Ur Leukocyte Esterase NEGATIVE Ur Microscopic Review NOT INDICATED Urine Culture Comments NOT INDICATED Serum Ketones - Rads (name of study) chest xray Radiology: Prelim report reviewed, See rad report CTA chest Radiology: Prelim report reviewed, See rad report testicle US Radiology: Prelim report reviewed, See rad report PD MEDICAL DECISION MAKING - ED course Complexity details: reviewed old records, reviewed results, re-evaluated patient, considered differential, d/w patient ED course: multiple c/o as noted in HPI. pleuritic CP, combined with tachycardia and elevated d-dimer, prompted CTA chest which is reassuring (no PE). c/o testicular pain and bilateral tenderness prompted testicle/scrotal US, unremarkable results (no evidence of torsion; there are bilateral varicoceles/hydroceles). His tachycardia improved, then resolved during ED stay. On reevaluation after tests resulted, he is resting comfortably; results d/w patient, he is comfortable with d/c home Departure - Departure Disposition: 01 Home, Self Care Clinical Impression: Varicocele, Hyperglycemia Hydrocele Qualifiers: Hydrocele type: unspecified Qualified Code(s): N43.3 - Hydrocele, unspecified Condition: Good Instructions: ED Hyperglycemia Diabetic, ED Hydrocele Type Not Specified, ED Varicocele Discharge Date/Time: 12/10/19 03:20
[2019-12-09 22:55] LABS: VBG PCO2 31.2 mmHg (41-51); VBG PH 7.505 (7.31-7.41); VBG PO2 54.5 mmHg (25-47)
[2019-12-09 22:56] LABS: VBG BASE EXCESS 1.9 mmol/L (-2 - +2)
[2019-12-09 22:58] LABS: BILIRUBIN,URINE NEGATIVE (NEGATIVE); GLUCOSE, URINE (UA) >=1000 mg/dL (NEGATIVE); KETONES,URINE (UA) TRACE mg/dL (NEGATIVE); LEUKOCYTE ESTERASE, URINE NEGATIVE (NEGATIVE); NITRITE,URINE NEGATIVE (NEGATIVE); OCCULT BLOOD,URINE NEGATIVE (NEGATIVE); PROTEIN,URINE NEGATIVE (NEGATIVE); UROBILINOGEN,URINE 0.2 (NORMAL) E.U./dL (NORMAL)
[2019-12-09 23:00] LABS: KETONES, SERUM (ACETEST) NEGATIVE (NEGATIVE)
[2019-12-09 23:00] LABS: CLARITY,URINE CLEAR (CLEAR)
[2019-12-09 23:02] LABS: ALBUMIN 4.2 g/dL (3.2-5.5); ALBUMIN/GLOBULIN RATIO 1.5 (1.0-2.2); ALKALINE PHOSPHATASE 82 IU/L (42-121); ALT ALANINE AMINOTRANSFERASE 26 IU/L (10-60); AST ASPARTATE AMINOTRANSFERASE 21 IU/L (10-42); BILIRUBIN,TOTAL 0.6 mg/dL (0.2-1.0); BUN - BLOOD UREA NITROGEN 11 mg/dL (6-20); CALCIUM 8.8 mg/dL (8.5-10.3); CARBON DIOXIDE - CO2 21 mmol/L (21-32); CHLORIDE 97 mmol/L (101-111); CREATININE 0.9 mg/dL (0.6-1.2); GLUCOSE 369 mg/dL (70-100); LIPASE 54 U/L (22-51); SODIUM 130 mmol/L (135-145)
[2019-12-10] MEDS ORDERED: IOVERSOL 320 100 ML VIAL IVP ONE ×2 (00:53→03:16)
[2019-12-10] MEDS ORDERED: KETOROLAC 30 MG/ML VIAL IVP STA (01:06)
[2019-12-10] MEDS ORDERED: MORPHINE 2 MG/ML CARPUJECT IVP STA (01:07)
[2019-12-10 03:34] VITALS: BP 128/92
--- NOTE | 2019-12-10 10:43 | Ultrasound Report ---
PROCEDURE: Testicle w/Doppler INDICATIONS: bilateral testicular pain TECHNIQUE: Real-time scanning was performed of the scrotum and testicles, with image documentation. Color and p ulse Doppler interrogation was performed of both testicles. COMPARISON: 11/24/2019, 11/23/2017 FINDINGS: Right: Testicle is normal in size at 4.4 x 1.8 x 3.2 cm, and demonstrates tiny microcalcifications. Epididymis is normal in overall size and morphology. There is a small hydrocele seen. Overlying scro shantal skin is normal in thickness. Left: Testicle is normal in size at 3.2 x 2.1 x 2.7 cm, and homogeneous in echotexture. Epididymis is normal in overall size and morphology. The left epididymis is overall not well seen. A small hydro alice is seen. Overlying scrotal skin is normal in thickness. Doppler: Within the left testicle, there is a striated vascular pattern seen. The vascularity of the testicles is considered to be within normal limits.. Bilateral varicoceles are seen, left larger ana n right. IMPRESSION: No testicular masses or significant testicular vascular abnormality can be seen. Bilateral varicoceles are seen, left larger than right. Small bilateral hydroceles. Note: No significant discrepancy from the preliminary report. Reviewed by: Parrish Smith MD on 12/10/2019 9:41 AM TANNER Approved by: Parrish Smith MD on 12/10/2019 9:41 AM TANNER Station ID: [id number]
--- NOTE | 2019-12-10 10:45 | XRAY Report ---
PROCEDURE: Chest 2 View X-Ray INDICATIONS: chest pain TECHNIQUE: 2 view(s) of the chest. COMPARISON: Correlation is made with the subsequently performed chest CT 12/10/2019. Comparison is m ana to prior chest radiographs 04/14/2019, 03/15/2018, and 10/30/2018 FINDINGS: Surgical changes and devices: Cervical spine fixation hardware is seen.. Lungs and pleura: No pleural effusions or pneumothorax. Lungs are clear. Mediastinum: Mediastinal contours are normal. Heart size is normal. Bones and chest wall: No suspicious bony abnormalities. Age-appropriate degenerative changes are se en. Soft tissues appear unremarkable. IMPRESSION: Normal chest plain films for age, without made of postoperative and degenerative changes . Note: No significant discrepancy from the preliminary report. Reviewed by: Parrish Smith MD on 12/10/2019 9:43 AM TANNER Approved by: Parrish Smith MD on 12/10/2019 9:43 AM TANNER Station ID: [id number]
--- NOTE | 2019-12-10 10:48 | CT Report ---
PROCEDURE: ANGIO CHEST W/WO INDICATIONS: pleuritic CP, tachycardic, elevated d-dimer CONTRAST: IV CONTRAST: Optiray 320 ml: 100 PO CONTRAST: *NO PO CONTRAST TECHNIQUE: After the administration of intravenous contrast, 2 mm thick sections acquired from the pulmonary api daquan to the posterior costophrenic angles. 3-dimensional maximum intensity projection (MIP) coronal a nd sagittal reformats were then acquired through the thorax. For radiation dose reduction, the follow ing was used: automated exposure control, adjustment of mA and/or kV according to patient size. COMPARISON: Prior chest CT 03/15/2019. Correlation is also made with the accompanying chest radiogra ph 12/09/2019 FINDINGS: Image quality: Excellent. Pulmonary arteries: Pulmonary arteries are normal in size, and demonstrate no intraluminal filling d efects to suggest central pulmonary embolism. Lungs and pleura: No focal infiltrates are seen. Mild dependent atelectasis is seen. No pleural ef fusions or pneumothorax. Central and peripheral airways are patent. Mediastinum: Heart size is normal, without pericardial effusion. No mediastinal or hilar adenopathy . Thoracic aorta is normal in caliber and enhancement. Esophagus is normal in caliber, without hiat al hernia. Bones and chest wall: No suspicious bony lesions. Ribs and thoracic spine appear intact throughout. The thyroid is normal. No axillary or supraclavicular adenopathy. Lower cervical spine fixation h ardware is seen. Abdomen: Visualized upper abdominal solid organs appear normal in the early arterial phase of enhanc ement. IMPRESSION: Negative for pulmonary medicine. No focal pulmonary abnormality is seen. Incidental note is made of: Lower cervical spine fixation hardware Note: No significant discrepancy from the preliminary report. Reviewed by: Parrish Smith MD on 12/10/2019 9:47 AM TANNER Approved by: Parrish Smith MD on 12/10/2019 9:47 AM TANNER Station ID: [id number]
== END 2019-12-10 03:20 | disposition home or self-care (01) ==
LOC: EDUNIT# → ED 22:05
DX: I86.1 Scrotal varices (principal); N43.3 Hydrocele, unspecified; E11.65 Type 2 diabetes mellitus with hyperglycemia; Z79.4 Long term (current) use of insulin; R07.81 Pleurodynia; R00.0 Tachycardia, unspecified; R79.89 Other specified abnormal findings of blood chemistry; I10 Essential (primary) hypertension; Z79.02 Long term (current) use of antithrombotics/antiplatelets; F17.200 Nicotine dependence, unspecified, uncomplicated
CPT/HCPCS: 36415; 71046; 71275; 76870; 80053; 81003; 82009; 82803; 83690; 85025; 85379; 93005; 93975; 96361; 96374; 96375; 99283; 99284; Q9967; 81001; 87086

== ENCOUNTER 2020-01-13 21:47 | Emergency (ER) | payer MEDICAID ==
[2020-01-13] MEDS ORDERED: KETOROLAC 30 MG/ML VIAL IVP STA (23:13)
[2020-01-13] MEDS ORDERED: ONDANSETRON 4 MG/2 ML VIAL IVP STA (23:13)
--- NOTE | 2020-01-13 23:16 | ED Physician Documentation ---
PD HPI ABD PAIN - Stated complaint Stated Complaint: NAUSEA,VOMITING,PX - Chief complaint Chief Complaint: Abd Pain - History obtained from History obtained from: Patient, Family - History of Present Illness Timing - onset: How many weeks ago (2) Timing - duration: Weeks (2) Timing - details: Gradual onset, Still present, Waxing and waning Quality: Sharp, Pain Location: RLQ Radiation: Improved by: Laying still Worsened by: Moving, Position, Palpation Associated symptoms: Nausea, Vomiting, Testicular pain. No: Fever, Diarrhea, Constipation, Loss of appetite Similar symptoms before: Diagnosis (right inguinal hernia) Recently seen: Clinic, Other - Additional information Additional information: 54-year-old male with a history of factitious presentations has developed pain in the right lower quadrant of his abdomen and into the right testicle and he has been diagnosed with a right inguinal hernia. He states this was done by his primary care doctor who found this while the patient was standing. He states that he has been in to see the urologist and has had cystoscopy as well as colonoscopy. This is all happened within the past 2 weeks. He is also been diagnosed with complex regional pain syndrome. Today he was in the shower when he had sudden onset of severe right sided pain and radiation into the testicle. He states that he is very tender and his pain is out of control. Review of Systems Constitutional: denies: Fever Eyes: denies: Decreased vision Ears: denies: Ear pain Nose: denies: Rhinorrhea / runny nose, Congestion Throat: denies: Sore throat Cardiac: denies: Chest pain / pressure, Palpitations Respiratory: denies: Dyspnea, Cough GI: reports: Abdominal Pain, Nausea, Vomiting. denies: Constipation, Diarrhea : denies: Dysuria, Frequency Skin: denies: Rash, Lesions Musculoskeletal: reports: Back pain. denies: Neck pain, Extremity pain Neurologic: denies: Generalized weakness, Focal weakness, Numbness PD PAST MEDICAL HISTORY - Past Medical History Past Medical History: Yes Cardiovascular: Hypertension, High cholesterol, [place], Murmur Respiratory: None Neuro: None Endocrine/Autoimmune: Type 2 diabetes, HyPOthyroidism GI: None : Kidney stones HEENT: None Psych: Depression, Bipolar disorder Musculoskeletal: Chronic back pain Derm: Other - Past Surgical History Past Surgical History: Yes General: Appendectomy Ortho: ACL reconstruction - Present Medications Home Medications: Ambulatory Orders Medication Instructions Recorded Confirmed Insulin Glargine,Hum.rec.anlog 25 unit SUBQ QPM 10/27/17 12/02/19 [Basaglar Kwikpen U-100] methIMAzole [Methimazole] 5 mg PO BID 10/30/18 12/02/19 Cefadroxil [Duricef] 500 mg PO BID 07/04/19 12/02/19 Clopidogrel [Plavix] 75 mg PO DAILY 07/04/19 12/02/19 Cephalexin [Keflex] 500 mg PO BID 11/25/19 12/02/19 Cyclobenzaprine [Flexeril] 10 mg PO TID PRN 11/25/19 12/02/19 DULoxetine [Cymbalta] 20 mg PO DAILY 11/25/19 12/02/19 Sitagliptin Phosphate [Januvia] 25 mg PO DAILY 11/25/19 12/02/19 Sulfamethox/Trimeth 800/160 1 each PO BID 14 Days #28 tablet 12/02/19 [Bactrim Ds 800/160] Tamsulosin HCl [Flomax] 0.4 mg PO DAILY #7 cap.er.24h 12/02/19 - Allergies Allergies/Adverse Reactions: Allergies Allergy/AdvReac Type Severity Reaction Status Date / Time adhesive tape Allergy Rash Verified 01/13/20 21:52 cinnamon Allergy Unknown Verified 01/13/20 21:52 pregabalin [From Lyrica] Allergy Unknown Verified 01/13/20 21:52 - Social History Does the pt smoke?: Yes Smoking Status: Current every day smoker Does the pt drink ETOH?: Yes Does the pt have substance abuse?: Yes - Immunizations Immunizations are current?: Yes - POLST Patient has POLST: No POLST Status: Full Code PD ED PE NORMAL - Vitals Vital signs reviewed: Yes - General General: Alert and oriented X 3, Well developed/nourished, Other (appears to be in pain hyperventilating and hysterical) - HEENT HEENT: Atraumatic, PERRL, EOMI - Neck Neck: Supple, no meningeal sign - Cardiac Cardiac: RRR, No murmur - Respiratory Respiratory: No respiratory distress, Clear bilaterally - Abdomen Abdomen: Normal bowel sounds, Soft, Non tender, Non distended, No organomegaly - Male Male : Other (testes descended bilat right is tender and the inguinal canal is soft, there is no mass and there is a tremendous amount of pain behavior with palpation. The exam is repeated with the patient stading agian with no mass. 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, No motor deficit, No sensory deficit, Normal speech Eye Opening: Spontaneous Motor: Obeys Commands Verbal: Oriented GCS Score: 15 - Psych Psych: Normal mood, Normal affect Results - Vitals Vitals: Vital Signs - 24 hr 01/13/20 01/14/20 01/14/20 21:52 00:06 03:10 Temperature 36.6 C 36.8 C 36.5 C Heart Rate 129 H 66 134 H Respiratory 16 18 30 H Rate Blood Pressure 132/108 H 129/86 H 187/128 H O2 Saturation 100 100 97 01/14/20 01/14/20 01/14/20 03:20 03:40 04:00 Temperature Heart Rate 98 87 84 Respiratory 15 16 12 Rate Blood Pressure 148/97 H 127/90 H 129/85 H O2 Saturation 96 96 96 Oxygen O2 Source Room air - Labs Labs: Laboratory Tests 01/13/20 01/13/20 01/13/20 23:30 23:30 23:50 WBC 6.8 RBC 5.03 Hgb 15.9 Hct 45.9 MCV 91.3 MCH 31.6 H MCHC 34.6 RDW 12.2 Plt Count 172 MPV 11.0 Neut # (Auto) 3.3 Lymph # (Auto) 2.3 [place] # (Auto) 0.9 Eos # (Auto) 0.2 Baso # (Auto) 0.0 Absolute Nucleated RBC 0.00 Nucleated RBC % 0.0 Sodium 135 Potassium 3.8 Chloride 98 L Carbon Dioxide 25 Anion Gap 12.0 BUN 12 Creatinine 0.8 Estimated GFR (MDRD) 100 Glucose 310 H Lactic Acid Calcium 9.5 Total Bilirubin 0.7 AST 20 ALT 27 Alkaline Phosphatase 84 Total Protein 7.7 Albumin 4.7 Globulin 3.0 Albumin/Globulin Ratio 1.6 Lipase 46 Urine Color YELLOW Urine Clarity CLEAR Urine pH 5.5 Ur Specific [place] 1.025 Urine Protein NEGATIVE Urine Glucose (UA) >=1000 H Urine Ketones NEGATIVE Urine Occult Blood NEGATIVE Urine Nitrite NEGATIVE Urine Bilirubin NEGATIVE Urine Urobilinogen 0.2 (NORMAL) Ur Leukocyte Esterase NEGATIVE Ur Microscopic Review NOT INDICATED Urine Culture Comments NOT INDICATED 01/13/20 23:59 WBC RBC Hgb Hct MCV MCH MCHC RDW Plt Count MPV Neut # (Auto) Lymph # (Auto) [place] # (Auto) Eos # (Auto) Baso # (Auto) Absolute Nucleated RBC Nucleated RBC % Sodium Potassium Chloride Carbon Dioxide Anion Gap BUN Creatinine Estimated GFR (MDRD) Glucose Lactic Acid 1.9 Calcium Total Bilirubin AST ALT Alkaline Phosphatase Total Protein Albumin Globulin Albumin/Globulin Ratio Lipase Urine Color Urine Clarity Urine pH Ur Specific [place] Urine Protein Urine Glucose (UA) Urine Ketones Urine Occult Blood Urine Nitrite Urine Bilirubin Urine Urobilinogen Ur Leukocyte Esterase Ur Microscopic Review Urine Culture Comments - Rads (name of study) CT ab/pel with Radiology: Prelim report reviewed (Impression: No acute disease), EMP read indepedently, See rad report PD MEDICAL DECISION MAKING - ED course Complexity details: reviewed old records, reviewed results, re-evaluated patient, considered differential, d/w patient, d/w family ED course: 54 y/o male with a history of factitious presentations presents tonight with an episode of severe RLQ pain while in the shower. He arrives with severe pain and hysterical pain behavior. He has a story of thinking he has a hernia and on exam there are no findings. He acts like he is really really tender in the inguinal canal but without swelling or mass or anything that looks abnormal or feels abnormal in any way. I did have his stand as he indicated and this was without findings as well. We did go as far as doing a CT scan of the abdomen and pelvis and this study was entirely normal. He gives history of complex regional pain syndrome and he does not get any relief with tordal and he is administered IV ketamine 45mg with improvement in his pain. Departure - Departure Disposition: 01 Home, Self Care Clinical Impression: Abdominal pain in male Condition: Stable Instructions: ED Abdominal Pain Unkn Cause Male Follow-Up: CORINNE BURROUGHS MD [Primary Care Provider] - Comments: Today we did not find anything specifically wrong in the abdomen or pelvis. You were treated with ketamine for complex regional pain syndrome. You may have a better week this week.
[2020-01-13 23:43] LABS: BASOPHILS % (AUTO) 0.4 %; EOSINOPHILS # (AUTO) 0.2 10^3/uL (0.0-0.7); EOSINOPHILS % (AUTO) 2.5 %; HGB - HEMOGLOBIN 15.9 g/dL (14.0-18.0); LYMPHOCYTES # (AUTO) 2.3 10^3/uL (1.5-3.5); LYMPHOCYTES % (AUTO) 34.5 %; MEAN CORPUSCULAR HEMOGLOBIN 31.6 pg (27.0-31.0); MEAN CORPUSCULAR HGB CONC 34.6 g/dL (32.0-36.0); MEAN CORPUSCULAR VOLUME 91.3 fL (80.0-94.0); MONOCYTES # (AUTO) 0.9 10^3/uL (0.0-1.0); MONOCYTES % (AUTO) 13.2 %; NEUTROPHILS # (AUTO) 3.3 10^3/uL (1.5-6.6); NEUTROPHILS % (AUTO) 49.1 %; PLT - PLATELET COUNT 172 10^3/uL (130-450); RED BLOOD COUNT 5.03 10^6/uL (4.70-6.10); RED CELL DISTRIBUTION WIDTH 12.2 % (12.0-15.0); WHITE BLOOD COUNT 6.8 x10^3/uL (4.8-10.8)
[2020-01-13 23:55] LABS: ALBUMIN 4.7 g/dL (3.2-5.5); ALBUMIN/GLOBULIN RATIO 1.6 (1.0-2.2); BILIRUBIN,TOTAL 0.7 mg/dL (0.2-1.0); CALCIUM 9.5 mg/dL (8.5-10.3); CREATININE 0.8 mg/dL (0.6-1.2); TOTAL PROTEIN 7.7 g/dL (6.7-8.2)
[2020-01-13 23:57] LABS: BILIRUBIN,URINE NEGATIVE (NEGATIVE); CLARITY,URINE CLEAR (CLEAR); GLUCOSE, URINE (UA) >=1000 mg/dL (NEGATIVE); KETONES,URINE (UA) NEGATIVE (NEGATIVE); LEUKOCYTE ESTERASE, URINE NEGATIVE (NEGATIVE); NITRITE,URINE NEGATIVE (NEGATIVE); OCCULT BLOOD,URINE NEGATIVE (NEGATIVE); PH,URINE 5.5 PH (5.0-7.5); PROTEIN,URINE NEGATIVE (NEGATIVE); UROBILINOGEN,URINE 0.2 (NORMAL) E.U./dL (NORMAL)
[2020-01-14] MEDS ORDERED: IOVERSOL 320 100 ML VIAL IVP ONE ×2 (00:19→00:50)
[2020-01-14] MEDS ORDERED: SODIUM CHLORIDE 0.9% 1,000 ML IV STA (00:26)
[2020-01-14 05:08] VITALS: BP 119/70
--- NOTE | 2020-01-14 16:18 | CT Report ---
PROCEDURE: Abdomen/Pelvis W INDICATIONS: RLQ pain CONTRAST: IV CONTRAST: Optiray 320 ml: 100 PO CONTRAST: *NO PO CONTRAST TECHNIQUE: After the administration of intravenous contrast, 5 mm thick sections acquired from the diaphragms to the symphysis. 5 mm thick coronal and sagittal reformats were acquired. For radiation dose reducti on, the following was used: automated exposure control, adjustment of mA and/or kV according to jacqui ent size. COMPARISON: CT abdomen/pelvis 12/02/2019 FINDINGS: Image quality: Excellent. ABDOMEN: Lung bases: Lung bases are clear. Heart size is normal. Solid organs: Liver and spleen are normal in size and enhancement. Gallbladder appears normal. Cresencio iary system is non dilated. Pancreas enhances normally. No adrenal nodules. Kidneys demonstrate no rmal size and enhancement, without hydronephrosis. Peritoneum and bowel: Bowel loops demonstrate normal wall thickness and caliber. Status post append ectomy. No free fluid or air. Nodes and vessels: No retroperitoneal or mesenteric adenopathy by size criteria. Aorta and inferior vena cava are normal in size. Miscellaneous: No ventral hernias. PELVIS: Genitourinary: Bladder wall thickness is normal. Miscellaneous: No inguinal hernias or adenopathy. Bones: No suspicious bony lesions. No vertebral body compression fractures. IMPRESSION: No acute abnormality is identified in the abdomen or pelvis. Findings are not significantly discordant with the overnight teleradiology report. Reviewed by: Nigel Hughes MD on 01/14/2020 8:42 AM PDT Approved by: Nigel Hughes MD on 01/14/2020 8:42 AM PDT Station ID: [id number]
== END 2020-01-14 05:09 | disposition home or self-care (01) ==
LOC: ED 21:47
DX: R10.31 Right lower quadrant pain (principal); N50.811 Right testicular pain; G90.50 Complex regional pain syndrome I, unspecified; I10 Essential (primary) hypertension; E11.9 Type 2 diabetes mellitus without complications; Z79.4 Long term (current) use of insulin; Z79.02 Long term (current) use of antithrombotics/antiplatelets; F17.200 Nicotine dependence, unspecified, uncomplicated
CPT/HCPCS: 36415; 74177; 80053; 81003; 83605; 83690; 85025; 96361; 96374; 96375; 99284; Q9967; 81001; 87086

== ENCOUNTER 2020-01-26 10:02 | Outpatient (CLI) | payer MEDICAID ==
--- NOTE | 2020-01-28 10:47 | MRI Report ---
PROCEDURE: Lumbar Spine W/O INDICATIONS: LUMBAR BACK PAIN W/RADICULOPATHY TECHNIQUE: Noncontrast sagittal T1 spin echo and T2 fast echo, sagittal STIR, axial T1 and T2 fast spin echo thr ough the lumbar spine. In cases with scoliosis, additional coronal T2 fast spin echo may be performe d. COMPARISON: Lumbar spine MRI dated 10/27/2017, lumbar spine plain films dated 11/25/2019. FINDINGS: Image quality: Excellent. Alignment and Curvature: There is normal bony alignment. Bone Marrow: Marrow is of normal overall signal. No acute vertebral body compression fractures. Spinal Cord: Conus medullaris terminates at the T12-L1 level. Visualized cord demonstrates normal s ignal and size. Paraspinous Soft Tissues: No paravertebral masses. L1-L2: Minimal disc bulge. Mild facet hypertrophy. No canal stenosis or foraminal stenosis. L2-L3: Mild disc bulge. Facet and ligament hypertrophy. No central canal stenosis. Mild left parmjit inal stenosis. L3-L4: As before, broad-based left posterior lateral disc protrusion. The left L4 nerve root is imp inged on the left lateral recess. There is bilateral facet hypertrophy. There is mild to moderate tee tral canal stenosis. There is left lateral recess stenosis. There is mild left foraminal stenosis. L4-L5: Diffuse disc bulge. Facet and ligament hypertrophy. Mild canal stenosis. Moderate bilateral foraminal stenosis with mild flattening deformity on the exiting bilateral L4 nerve roots. Findings a re not significantly changed. L5-S1: Incidental note is made of the presence of a conjoined nerve root in the right lateral reces s. Minimal disc bulge. Bilateral facet hypertrophy. Mild bilateral foraminal narrowing. IMPRESSION: 1. Multilevel facet arthropathy. 2. At L3-L4, findings are not significantly changed. There is mild to moderate central canal stenosis . There is a broad-based left posterior lateral disc protrusion which impinges the left L4 nerve root in the left lateral recess. 3. Findings at L4-L5 are stable. There is mild canal stenosis. There is moderate bilateral foraminal stenosis. Reviewed by: Gustavo Saalzar MD on 01/28/2020 10:46 AM PDT Approved by: Gustavo Salazar MD on 01/28/2020 10:46 AM PDT Station ID: [id number]
== END 2020-01-26 10:03 | disposition home or self-care (01) ==
LOC: DI 10:02
PROVIDERS: ATTEND Family Medicine
DX: M51.16 Intervertebral disc disorders with radiculopathy, lumbar region (principal); M48.061 Spinal stenosis, lumbar region without neurogenic claudication
CPT/HCPCS: 72148

== ENCOUNTER 2020-02-08 09:24 | Outpatient (CLI) | payer MEDICAID ==
--- NOTE | 2020-02-08 16:44 | Ultrasound Report ---
PROCEDURE: Testicle INDICATIONS: RT TESTICULAR PAIN TECHNIQUE: Real-time scanning was performed of the scrotum and testicles, with image documentation. Color and p ulse Doppler interrogation was performed of both testicles. COMPARISON: CT abdomen/pelvis 01/14/2020 FINDINGS: Right: Testicle is normal in size at 4 x 1.8 x 2.9 cm, and homogenous in echotexture. Epididymis is normal in overall size and morphology. No hydrocele or varicoceles. Overlying scrotal skin is norm al in thickness. Left: Testicle is normal in size at 3.8 x 1.8 x 3.0 cm, and homogeneous in echotexture. Epididymis is normal in overall size and morphology. A 3 mm epididymal cyst is present. No hydrocele or varicoc eles. Overlying scrotal skin is normal in thickness. Doppler: Color and pulse Doppler demonstrate normal and symmetric arterial flow in both testicles. Miscellaneous: A small right inguinal fat-containing hernia is seen with neck measuring 5 x 7 mm. IMPRESSION: 1. No signs of testicular torsion or testicular mass. 2. Small fat-containing right inguinal hernia. Reviewed by: Nigel Hughes MD on 02/08/2020 4:43 PM PST Approved by: Nigel Hughes MD on 02/08/2020 4:43 PM PST Station ID: [id number]
== END 2020-02-08 09:25 | disposition home or self-care (01) ==
LOC: DI 09:24
PROVIDERS: ATTEND Internal Medicine
DX: N50.811 Right testicular pain (principal); K40.90 Unilateral inguinal hernia, without obstruction or gangrene, not specified as recurrent
CPT/HCPCS: 76870

== ENCOUNTER 2020-03-06 00:13 | Emergency (ER) | payer MEDICAID ==
[2020-03-06] MEDS ORDERED: SODIUM CHLORIDE 0.9% 1,000 ML IV STA (00:39)
[2020-03-06] MEDS ORDERED: KETOROLAC 15 MG/ML VIAL IVP STA (00:39)
--- NOTE | 2020-03-06 00:44 | ED Physician Documentation ---
PD HPI ABD PAIN - Stated complaint Stated Complaint: MALE - Chief complaint Chief Complaint: Abd Pain - History obtained from History obtained from: Patient - Additional information Additional information: 54-year-old man with past medical history of R ascended testicle, R indirect inguinal hernia, chronic back pain, presents with abdominal pain and right lower quadrant pain radiating from the groin progressive over past several days, constant, aching, 8 out of 10 at present. He states that his cat jumped on him this evening causing acute onset worsening pain. Also had episode of nausea vom iting nbnb yesterday. endorses constipation. no blood in stool. no fever. Review of Systems Ten Systems: 10 systems reviewed and negative Constitutional: denies: Fever, Chills GI: reports: Abdominal Pain, Constipation. denies: Nausea, Vomiting, Bloody / black stool : reports: Testicular pain PD PAST MEDICAL HISTORY - Past Medical History Past Medical History: Yes Cardiovascular: Hypertension, High cholesterol, [place], Murmur Respiratory: None Neuro: None Endocrine/Autoimmune: Type 2 diabetes, HyPOthyroidism GI: None : Kidney stones HEENT: None Psych: Depression, Bipolar disorder Musculoskeletal: Chronic back pain Derm: Other - Past Surgical History Past Surgical History: Yes General: Appendectomy Ortho: ACL reconstruction - Present Medications Home Medications: Ambulatory Orders Medication Instructions Recorded Confirmed Insulin Glargine,Hum.rec.anlog 25 unit SUBQ QPM 10/27/17 03/06/20 [Basaglar Kwikpen U-100] methIMAzole [Methimazole] 5 mg PO BID 10/30/18 03/06/20 Cefadroxil [Duricef] 500 mg PO BID 07/04/19 03/06/20 Clopidogrel [Plavix] 75 mg PO DAILY 07/04/19 03/06/20 Cyclobenzaprine [Flexeril] 10 mg PO TID PRN 11/25/19 03/06/20 Sitagliptin Phosphate [Januvia] 25 mg PO DAILY 11/25/19 03/06/20 Tamsulosin HCl [Flomax] 0.4 mg PO DAILY #7 cap.er.24h 12/02/19 03/06/20 - Allergies Allergies/Adverse Reactions: Allergies Allergy/AdvReac Type Severity Reaction Status Date / Time adhesive tape Allergy Rash Verified 03/06/20 00:21 pregabalin [From Lyrica] Allergy Unknown Verified 03/06/20 00:21 - Social History Does the pt smoke?: Yes Smoking Status: Current every day smoker Does the pt drink ETOH?: Yes Does the pt have substance abuse?: Yes - Immunizations Immunizations are current?: Yes - POLST Patient has POLST: No POLST Status: Full Code PD ED PE NORMAL - Vitals Vital signs reviewed: Yes - General General: Alert and oriented X 3 - HEENT HEENT: Atraumatic, PERRL, EOMI - Neck Neck: Supple, no meningeal sign - Cardiac Cardiac: RRR - Respiratory Respiratory: No respiratory distress, Clear bilaterally - Abdomen Abdomen: Other (Tender to palpation in right lower quadrant and inguinal region. Small reducible inguinal hernia palpated on the right side) - Male Male : Steel Tester present ([address]), Other (Bilateral cremaster reflex. Testicles nontender) - Rectal Rectal: Deferred - Back Back: No spinal TTP - Derm Derm: Normal color - Extremities Extremities: No deformity - Neuro Neuro: Alert and oriented X 3 - Psych Psych: Normal mood, Normal affect Results - Vitals Vitals: Vital Signs - 24 hr 03/06/20 03/06/20 03/06/20 00:16 00:59 01:30 Temperature 36.9 C Heart Rate 116 H Respiratory 18 16 17 Rate Blood Pressure 117/86 H O2 Saturation 97 03/06/20 03/06/20 03/06/20 01:45 02:00 02:36 Temperature Heart Rate 92 81 Respiratory 15 15 Rate Blood Pressure 133/96 H 133/92 H 144/77 H O2 Saturation 96 96 Oxygen O2 Source Room air - Labs Labs: Laboratory Tests 03/06/20 03/06/20 03/06/20 00:50 00:50 02:30 WBC 6.8 RBC 4.63 L Hgb 14.6 Hct 43.0 MCV 92.9 MCH 31.5 H MCHC 34.0 RDW 12.0 Plt Count 178 MPV 10.7 Neut # (Auto) 3.5 Lymph # (Auto) 2.2 [place] # (Auto) 0.9 Eos # (Auto) 0.2 Baso # (Auto) 0.0 Absolute Nucleated RBC 0.00 Nucleated RBC % 0.0 Sodium 135 Potassium 3.9 Chloride 99 L Carbon Dioxide 26 Anion Gap 10.0 BUN 13 Creatinine 0.9 Estimated GFR (MDRD) 87 L Glucose 375 H Calcium 9.2 Total Bilirubin 0.5 AST 21 ALT 24 Alkaline Phosphatase 73 Total Protein 6.9 Albumin 4.2 Globulin 2.7 Albumin/Globulin Ratio 1.6 Lipase 29 Urine Color YELLOW Urine Clarity CLEAR Urine pH 6.0 Ur Specific [place] <=1.005 Urine Protein NEGATIVE Urine Glucose (UA) >=1000 H Urine Ketones NEGATIVE Urine Occult Blood NEGATIVE Urine Nitrite NEGATIVE Urine Bilirubin NEGATIVE Urine Urobilinogen 0.2 (NORMAL) Ur Leukocyte Esterase NEGATIVE Ur Microscopic Review NOT INDICATED Urine Culture Comments NOT INDICATED PD MEDICAL DECISION MAKING - ED course Complexity details: d/w patient ED course: 54-year-old man with history of right indirect inguinal hernia presents with RLQ and R inguinal pain that has been going on for several days, worsening acutely this evening when his cat jumped on him. Pain is well controlled with IV pain medication. CT showed no acute pathology and bloodwork Was unremarkable aside from some hyperglycemia. Discussed with patient and was given permission to discuss results with his significant other Lelo who is an RT here. It was agreed that he will go home, take tylenol for pain, benadryl as needed as a sleep aid, and get some rest before his 10 AM appointment with his primary doctor today. Strict return precautions given. Departure - Departure Disposition: 01 Home, Self Care Clinical Impression: Nausea, Abdominal pain, Inguinal hernia Condition: Good Instructions: Abdominal Pain Comments: You have been seen in the emergency department for abdominal pain. It looks like your hernia is small and not strangulated (meaning that it has good blood flow and does not emergency). Your CT did not have any concerning findings. You do have high blood sugar so you need to follow a careful diet for your diabetes. Eat lots of high-fiber foods to avoid constipation and drink lots of water. Follow-up with your primary doctor in the morning. Return to the ED for any new or worsening symptoms
[2020-03-06 00:55] LABS: BASOPHILS % (AUTO) 0.4 %; EOSINOPHILS # (AUTO) 0.2 10^3/uL (0.0-0.7); EOSINOPHILS % (AUTO) 2.9 %; HGB - HEMOGLOBIN 14.6 g/dL (14.0-18.0); LYMPHOCYTES # (AUTO) 2.2 10^3/uL (1.5-3.5); LYMPHOCYTES % (AUTO) 32.6 %; MEAN CORPUSCULAR HEMOGLOBIN 31.5 pg (27.0-31.0); MEAN CORPUSCULAR VOLUME 92.9 fL (80.0-94.0); MEAN PLATELET VOLUME 10.7 fL (7.4-11.4); MONOCYTES # (AUTO) 0.9 10^3/uL (0.0-1.0); MONOCYTES % (AUTO) 12.4 %; NEUTROPHILS # (AUTO) 3.5 10^3/uL (1.5-6.6); NEUTROPHILS % (AUTO) 51.4 %; PLT - PLATELET COUNT 178 10^3/uL (130-450); RED BLOOD COUNT 4.63 10^6/uL (4.70-6.10); WHITE BLOOD COUNT 6.8 x10^3/uL (4.8-10.8)
[2020-03-06 01:08] LABS: ALBUMIN 4.2 g/dL (3.2-5.5); ALBUMIN/GLOBULIN RATIO 1.6 (1.0-2.2); BILIRUBIN,TOTAL 0.5 mg/dL (0.2-1.0); CALCIUM 9.2 mg/dL (8.5-10.3); CREATININE 0.9 mg/dL (0.6-1.2); TOTAL PROTEIN 6.9 g/dL (6.7-8.2)
[2020-03-06] MEDS ORDERED: MORPHINE 10 MG/ML VIAL IVP STA (01:18)
[2020-03-06] MEDS ORDERED: IOVERSOL 320 100 ML VIAL IVP ONE ×2 (01:31→01:46)
[2020-03-06 02:40] LABS: BILIRUBIN,URINE NEGATIVE (NEGATIVE); CLARITY,URINE CLEAR (CLEAR); GLUCOSE, URINE (UA) >=1000 mg/dL (NEGATIVE); KETONES,URINE (UA) NEGATIVE (NEGATIVE); LEUKOCYTE ESTERASE, URINE NEGATIVE (NEGATIVE); NITRITE,URINE NEGATIVE (NEGATIVE); OCCULT BLOOD,URINE NEGATIVE (NEGATIVE); PROTEIN,URINE NEGATIVE (NEGATIVE); UROBILINOGEN,URINE 0.2 (NORMAL) E.U./dL (NORMAL)
[2020-03-06] MEDS ORDERED: ACETAMINOPHEN 325 MG TABLET PO STA (03:11)
[2020-03-06 03:21] VITALS: BP 124/87
--- NOTE | 2020-03-06 10:05 | CT Report ---
PROCEDURE: Abdomen/Pelvis W INDICATIONS: Abdominal pain, acute, nonlocalized CONTRAST: IV CONTRAST: Optiray 320 ml: 100 PO CONTRAST: *NO PO CONTRAST TECHNIQUE: After the administration of intravenous contrast, 5 mm thick sections acquired from the diaphragms to the symphysis. 5 mm thick coronal and sagittal reformats were acquired. For radiation dose reducti on, the following was used: automated exposure control, adjustment of mA and/or kV according to jacqui ent size. COMPARISON: CT abdomen and pelvis with contrast, 01/14/2020. CT abdomen and pelvis without contrast, 12/02/2019. FINDINGS: Image quality: Excellent. ABDOMEN: Lung bases: Mild bibasilar atelectasis. Small pneumatoceles are noted in lung bases. Heart size is n ormal. Solid organs: Liver and spleen are normal in size and enhancement. Gallbladder is contracted. Bili mateo system is non dilated. Pancreas is normal in morphology. There is a 7 mm low-density nodule in p ancreatic head (image [id number]), which was not seen on the last exam. No adrenal nodules. Kidneys d emonstrate normal size and enhancement, without hydronephrosis. Peritoneum and bowel: Bowel loops demonstrate normal wall thickness and caliber. No free fluid or a ir. Nodes and vessels: No retroperitoneal or mesenteric adenopathy by size criteria. Aorta and inferior vena cava are normal in size. Miscellaneous: No ventral hernias. PELVIS: Genitourinary: Bladder wall thickness is normal. Miscellaneous: No inguinal hernias or adenopathy. Bones: No suspicious bony lesions. No vertebral body compression fractures. IMPRESSION: 1. No acute metastatic disease in abdomen or pelvis. 2. A 7 mm low-density nodule in the head of pancreas, probably a small cyst. This finding is new sinc e the last CT. Clinically indicated, pancreatic protocol CT or MRI may be obtained for follow-up. No significant discrepancy with the preliminary interpretation. Reviewed by: Faisal Jarrett MD on 03/06/2020 10:03 AM PST Approved by: Faisal Jarrett MD on 03/06/2020 10:03 AM PST Station ID: [id number]
== END 2020-03-06 03:30 | disposition home or self-care (01) ==
LOC: ED 00:13
DX: R10.31 Right lower quadrant pain (principal); R11.0 Nausea; K40.90 Unilateral inguinal hernia, without obstruction or gangrene, not specified as recurrent; E11.65 Type 2 diabetes mellitus with hyperglycemia; Z79.4 Long term (current) use of insulin; I10 Essential (primary) hypertension; F17.200 Nicotine dependence, unspecified, uncomplicated; N50.811 Right testicular pain
CPT/HCPCS: 36415; 74177; 80053; 80061; 81003; 82105; 83036; 83615; 83690; 84443; 84702; 85025; 96374; 96375; 99284; 99285; A9270; Q9967; 80306; 81001; 81599; 83721; 87086

== ENCOUNTER 2020-03-06 08:00 | Outpatient (CLI) | payer MEDICAID ==
[2020-03-06 18:19] LABS: BASOPHILS % (AUTO) 0.6 %; EOSINOPHILS # (AUTO) 0.1 10^3/uL (0.0-0.7); EOSINOPHILS % (AUTO) 2.7 %; HGB - HEMOGLOBIN 13.9 g/dL (14.0-18.0); LYMPHOCYTES # (AUTO) 1.3 10^3/uL (1.5-3.5); LYMPHOCYTES % (AUTO) 26.2 %; MEAN CORPUSCULAR HGB CONC 32.6 g/dL (32.0-36.0); MEAN CORPUSCULAR VOLUME 95.3 fL (80.0-94.0); MEAN PLATELET VOLUME 11.6 fL (7.4-11.4); MONOCYTES # (AUTO) 0.6 10^3/uL (0.0-1.0); MONOCYTES % (AUTO) 13.4 %; NEUTROPHILS # (AUTO) 2.7 10^3/uL (1.5-6.6); NEUTROPHILS % (AUTO) 56.7 %; PLT - PLATELET COUNT 165 10^3/uL (130-450); RED BLOOD COUNT 4.48 10^6/uL (4.70-6.10); RED CELL DISTRIBUTION WIDTH 12.2 % (12.0-15.0); WHITE BLOOD COUNT 4.8 x10^3/uL (4.8-10.8)
[2020-03-06 18:40] LABS: ALBUMIN 4.1 g/dL (3.2-5.5); ALBUMIN/GLOBULIN RATIO 1.5 (1.0-2.2); ALKALINE PHOSPHATASE 69 IU/L (42-121); ALT ALANINE AMINOTRANSFERASE 24 IU/L (10-60); AST ASPARTATE AMINOTRANSFERASE 21 IU/L (10-42); BILIRUBIN,TOTAL 0.4 mg/dL (0.2-1.0); BUN - BLOOD UREA NITROGEN 14 mg/dL (6-20); CALCIUM 9.2 mg/dL (8.5-10.3); CARBON DIOXIDE - CO2 25 mmol/L (21-32); CHLORIDE 102 mmol/L (101-111); CHOL/HDL RATIO 3.8 (<5.0); CHOLESTEROL 186 mg/dL; CREATININE 0.6 mg/dL (0.6-1.2); GLUCOSE 314 mg/dL (70-100); HDL CHOLESTEROL 49 mg/dL; LDL CHOLESTEROL,CALCULATED 101 mg/dL; LDL/HDL RATIO 2.1 (<3.6); SODIUM 135 mmol/L (135-145); TOTAL PROTEIN 6.9 g/dL (6.7-8.2); VLDL CHOLESTEROL 36 mg/dL
[2020-03-06 20:49] LABS: HEMOGLOBIN A1c% 11.4 % (4.27-6.07)
== END 2020-03-06 23:59 | disposition home or self-care (01) ==
LOC: LAB.WCP 08:00
PROVIDERS: ATTEND Internal Medicine
DX: E11.65 Type 2 diabetes mellitus with hyperglycemia (principal); N50.811 Right testicular pain
CPT/HCPCS: 80053; 80061; 80306; 81001; 81599; 82105; 83036; 83615; 83721; 84443; 84702; 85025; 87086

== ENCOUNTER 2020-04-01 03:31 | Outpatient (CLI) | payer MEDICAID | END 2020-04-01 03:32 | disposition EMS.NT | LOC: EMS 03:31 | PROVIDERS: ATTEND Surgery | DX: M54.5 Low back pain (principal) ==

== ENCOUNTER 2020-04-24 14:05 | Outpatient (CLI) | payer MEDICAID | END 2020-04-24 14:06 | disposition critical access hospital (66) | LOC: EMS 14:05 | PROVIDERS: ATTEND Surgery | DX: M54.5 Low back pain (principal); M79.605 Pain in left leg; M79.604 Pain in right leg | CPT/HCPCS: A0425; A0427; A0999 ==

== ENCOUNTER 2020-04-24 14:25 | Emergency (ER) | payer MEDICAID ==
--- NOTE | 2020-04-24 14:58 | ED Physician Documentation ---
History of Present Illness - Stated complaint Stated Complaint: BACK PX - Chief complaint Chief Complaint: Back Pain - Additonal information Additional information: 54-year-old male presents to the emergency department with an exacerbation of acute on chronic back pain. He reports that he was in his bedroom lifting something that weighed about 7 pounds and felt a pop in his low back. He reports that he immediately seized up and fell back onto the bed. Since then he has had excruciating uncontrolled pain and is unable to find any position of comfort unless he is on his abdomen. He reports to me that he had a prolonged hospitalization at [facility] in mid March for back pain. He also reports that he has had 2 epidural injections. He states that he has an appointment to follow-up with neurosurgery at [facility] tomorrow however because of car problems and now this exacerbation of pain he is unable to make it to the appointment. In the room he is diaphoretic and tearful due to the pain. He states that he started college and this is getting in the way of his classes.He denies saddle anesthesia or bowel or bladder incontinence. No fevers. He did have an MRI of his lumbar spine in January 2020 that did show degenerative disc disease, bulge as well as moderate central canal stenosis. Review of Systems Constitutional: reports: Reviewed and negative Ears: reports: Reviewed and negative Nose: reports: Reviewed and negative Throat: reports: Reviewed and negative Cardiac: reports: Reviewed and negative Respiratory: reports: Reviewed and negative GI: reports: Reviewed and negative : reports: Reviewed and negative Musculoskeletal: reports: Back pain Neurologic: reports: Reviewed and negative PD PAST MEDICAL HISTORY - Past Medical History Cardiovascular: Hypertension, High cholesterol, [place], Murmur Respiratory: None Neuro: None Endocrine/Autoimmune: Type 2 diabetes, HyPOthyroidism GI: None : Kidney stones HEENT: None Psych: Depression, Bipolar disorder Musculoskeletal: Chronic back pain Derm: Other - Past Surgical History Past Surgical History: Yes General: Appendectomy Ortho: ACL reconstruction - Present Medications Home Medications: Ambulatory Orders Medication Instructions Recorded Confirmed Insulin Glargine,Hum.rec.anlog 25 unit SUBQ QPM 10/27/17 04/24/20 [Basaglar Kwikpen U-100] methIMAzole [Methimazole] 5 mg PO BID 10/30/18 04/24/20 Cefadroxil [Duricef] 500 mg PO BID 07/04/19 04/24/20 Duloxetine HCl [Cymbalta] 60 mg DAILY 04/24/20 04/24/20 Gabapentin [Neurontin] 600 mg TID 04/24/20 04/24/20 Glimepiride [Amaryl] 4 mg PO DAILY 04/24/20 04/24/20 Nortriptyline [Pamelor] 10 mg DAILY 04/24/20 04/24/20 Tizanidine HCl [Zanaflex] 4 mg Q8H 04/24/20 04/24/20 - Allergies Allergies/Adverse Reactions: Allergies Allergy/AdvReac Type Severity Reaction Status Date / Time adhesive tape Allergy Rash Verified 04/24/20 14:35 pregabalin [From Lyrica] Allergy Unknown Verified 04/24/20 14:35 - Social History Does the pt smoke?: Yes Smoking Status: Current every day smoker Does the pt drink ETOH?: Yes Does the pt have substance abuse?: Yes - Immunizations Immunizations are current?: Yes - POLST Patient has POLST: No POLST Status: Full Code PD ED PE EXPANDED - General General: Alert, In Pain, In distress - Cardiac Cardiac: Tachy, Radial strong equal, Pedal strong equal, Cap refill < 2 sec - Respiratory Respiratory: Clear to ausultation roger. No: Distress, Labored - Abdomen Abdomen: Normal Bowel sounds. No: Tender to palpation - Back Back: Soft tissue tenderness (significant soft tissue and midline tenderness across the lower lumbar spine) - Extremities Extremities: Normal, Other (motor strength 5/5). No: Deformity, Tenderness - Neuro Neuro: Alert and Oriented X 3, CNII-XII intact - GCS Eye Opening: Spontaneous Motor: Obeys Commands Verbal: Oriented Total: 15 Results - Vitals Vitals: Vital Signs - 24 hr 04/24/20 04/24/20 04/24/20 14:25 16:30 17:00 Temperature 37.0 C Heart Rate 127 H 111 H 102 H Respiratory 22 16 16 Rate Blood Pressure 147/96 H 139/92 H 134/83 H O2 Saturation 96 98 96 04/24/20 04/24/20 04/24/20 17:10 17:20 17:27 Temperature Heart Rate 110 H 110 H 110 H Respiratory 20 14 12 Rate Blood Pressure 142/95 H 149/90 H O2 Saturation 96 95 98 04/24/20 04/24/20 04/24/20 17:30 17:35 17:40 Temperature Heart Rate 112 H 123 H 116 H Respiratory 12 13 14 Rate Blood Pressure 143/92 H 154/97 H 149/98 H O2 Saturation 95 98 98 04/24/20 04/24/20 04/24/20 17:50 18:00 18:20 Temperature Heart Rate 108 H 110 H 106 H Respiratory 12 14 16 Rate Blood Pressure 146/96 H 142/91 H 149/94 H O2 Saturation 95 96 97 04/24/20 04/24/20 18:30 20:00 Temperature Heart Rate 108 H 112 H Respiratory 16 18 Rate Blood Pressure 142/88 H 133/98 H O2 Saturation 98 96 Oxygen O2 Source Room air PD MEDICAL DECISION MAKING - ED course Complexity details: reviewed old records, reviewed results, re-evaluated patient, considered differential, d/w patient ED course: 54-year-old male presents the emergency department with acute on chronic low back pain. He reports lifting something heavy feeling a pop in his back and then falling backwards onto his bed. He presented via EMS and stated the pain was so severe he could only lay on his abdomen. He also reported that he had recently been hospitalized [facility] for back pain. Initially this gentleman was given 1 mg of Dilaudid without relief of the pain. I did request records from [facility] regarding that hospitalization.It appears that he was hospitalized for about 4 days and MRI at [facility] showed no acute changes from one completed several months earlier which was essentially degenerative disc disease with L3-4 foraminal stenosis and moderate spinal canal stenosis. Patient received epidural steroid injection 03/24/[address] [facility] with marked improvement in his symptoms. He was discharged with a prescription for Zanaflex, gabapentin as well as Dilaudid. The notes indicate that previous providers had concerns that the patient may have a conversion disorder as the patient had been witnessed walking unassisted while complaining of being unable to walk. In the future they recommended against admission to the hospital for back pain unless an MRI showed an indication for acute surgery. He is to continue to follow-up with Dr. De Santiago neurosurgeon at [facility]. Here in the emergency department we did give this gentleman a ketamine infusion to assist with the pain. Initially 35 mg was ordered to infuse over 1 hour. However the patient was quite asleep after receiving only half the infusion therefore it was stopped. About 1 hour after the infusion was stopped I reexamined the patient though he reported he was still in severe pain he was noted to be moving much easier. I discussed with the patient that we have concerns about conversion disorder and that there was no indication today in the emergency department for MRI of his back as he had no red flags. He does have an appointment tomorrow with a neurosurgeon and is encouraged to keep this appointment. At the end of the visit I did stand the patient myself and did note that he walked though haltingly unassisted. He is discharged home in stable condition. Emergent return precautions discussed Departure - Departure Disposition: 01 Home, Self Care Clinical Impression: Low back pain Qualifiers: Chronicity: chronic Back pain laterality: unspecified Sciatica presence: unsp ecified whether sciatica present Qualified Code(s): M54.5 - Low back pain Condition: Stable Record reviewed to determine appropriate education?: Yes Comments: Lenny you were given a dose of ketamine in the emergency department today for pain control. It has improved your pain. It is critical that you continue to follow-up with a neurosurgeon at [facility] tomorrow for further and long-term management and evaluation of your back pain and herniated disks. Please do not miss this appointment Discharge Date/Time: 04/24/20 20:00
[2020-04-24] MEDS ORDERED: HYDROmorphone 1 MG/ML CARPUJECT IVP STA (14:59)
[2020-04-24] MEDS ORDERED: KETOROLAC 30 MG/ML VIAL IVP STA (15:11)
[2020-04-24] MEDS ORDERED: KETAMINE IV STA (16:05)
[2020-04-24] MEDS ORDERED: SODIUM CHLORIDE 0.9% IV STA (16:05)
[2020-04-24] MEDS ORDERED: KETAMINE 35 MG in SODIUM CHLORIDE 0.9% 100ML 100 ML IV STA (16:34)
[2020-04-24 20:00] VITALS: BP 133/98
== END 2020-04-24 20:00 | disposition home or self-care (01) ==
LOC: EDUNIT# → ED 14:25
DX: M54.5 Low back pain (principal); G89.29 Other chronic pain; I10 Essential (primary) hypertension; E11.9 Type 2 diabetes mellitus without complications; Z79.4 Long term (current) use of insulin; F17.200 Nicotine dependence, unspecified, uncomplicated
CPT/HCPCS: 96365; 96375; 99283; 99284; J1170

== ENCOUNTER 2020-04-25 21:31 | Emergency (ER) | payer MEDICAID ==
[2020-04-25 21:43] VITALS: BP 155/97
--- NOTE | 2020-04-25 22:11 | ED Physician Documentation ---
PD HPI UPPER EXT INJURY - Stated complaint Stated Complaint: RT HAND INJ - Chief complaint Chief Complaint: Ext Problem - History obtained from History obtained from: Patient - History of Present Illness Location: Right, Hand Type of injury: Fall Where injury occurred: Home Timing - onset: Today Timing - duration: Minutes Timing - details: Abrupt onset, Still present Improved by: Rest, Ice, Immobilization Worsened by: Moving, Palpating Associated symptoms: Swelling. No: Weakness, Numbness, Tingling Contributing factors: No: Anticoagulated Similar symptoms before: Diagnosis (hand fracture) Recently seen: Not recently seen - Additonal information Additional information: 54-year-old male reports that he lost his balance today falling backwards and landing on the dorsal surface of his right hand. He is complaining of pain in his right hand. He states that he was here in the emergency department yesterday with back pain and he indicates that he is going to be getting back surgery soon. Yesterday he was administered ketamine and today he does not appear to be in the type of pain he was in yesterday. He still complains of back pain. Review of Systems Constitutional: denies: Fever Eyes: denies: Decreased vision Ears: denies: Ear pain Nose: denies: Rhinorrhea / runny nose, Congestion Throat: denies: Sore throat Cardiac: denies: Chest pain / pressure Respiratory: denies: Cough GI: denies: Vomiting PD PAST MEDICAL HISTORY - Past Medical History Cardiovascular: Hypertension, High cholesterol, [place], Murmur Respiratory: None Neuro: None Endocrine/Autoimmune: Type 2 diabetes, HyPOthyroidism GI: None : Kidney stones HEENT: None Psych: Depression, Bipolar disorder Musculoskeletal: Chronic back pain Derm: Other - Past Surgical History Past Surgical History: Yes General: Appendectomy Ortho: ACL reconstruction - Present Medications Home Medications: Ambulatory Orders Medication Instructions Recorded Confirmed Insulin Glargine,Hum.rec.anlog 25 unit SUBQ QPM 10/27/17 04/24/20 [Basaglar Richard U-100] methIMAzole [Methimazole] 5 mg PO BID 10/30/18 04/24/20 Cefadroxil [Duricef] 500 mg PO BID 07/04/19 04/24/20 Duloxetine HCl [Cymbalta] 60 mg DAILY 04/24/20 04/24/20 Gabapentin [Neurontin] 600 mg TID 04/24/20 04/24/20 Glimepiride [Amaryl] 4 mg PO DAILY 04/24/20 04/24/20 Nortriptyline [Pamelor] 10 mg DAILY 04/24/20 04/24/20 Tizanidine HCl [Zanaflex] 4 mg Q8H 04/24/20 04/24/20 - Allergies Allergies/Adverse Reactions: Allergies Allergy/AdvReac Type Severity Reaction Status Date / Time adhesive tape Allergy Rash Verified 04/25/20 21:43 pregabalin [From Lyrica] Allergy Unknown Verified 04/25/20 21:43 - Social History Does the pt smoke?: Yes Smoking Status: Current every day smoker Does the pt drink ETOH?: Yes Does the pt have substance abuse?: Yes - Immunizations Immunizations are current?: Yes - POLST Patient has POLST: No POLST Status: Full Code PD ED PE NORMAL - Vitals Vital signs reviewed: Yes (Hypertensive) - General General: No acute distress, Well developed/nourished - HEENT HEENT: Atraumatic, PERRL, EOMI - Respiratory Respiratory: No respiratory distress - Derm Derm: Normal color, Warm and dry, No rash - Extremities Extremities: No deformity, No edema, Other (There is mild tenderness to the dorsum of the hand on the right side he is able to flex and extend at the wrist with pain distal neurovascular components are intact.) - Neuro Neuro: Alert and oriented X 3, pumping 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 No acute fracture or dislocation. Postsurgical and degenerative changes.), EMP read indepedently, See rad report Procedures - Splint (location) Right hand Splint applied by: Tech Type of splint: Fiberglass, Volar cock up Other: Patient tolerated well, No complications, Neurovascular intact, Good alignment PD MEDICAL DECISION MAKING - ED course Complexity details: reviewed results, re-evaluated patient, considered differential, d/w patient ED course: 54-year-old male with an injury to the dorsum of the right hand has no evidence of fracture on x-ray examination he has had surgery to this hand previously. He is placed into a splint instructed to wear either several days for up to 2 weeks. Departure - Departure Disposition: 01 Home, Self Care Clinical Impression: Contusion of hand Qualifiers: Encounter type: initial encounter Laterality: right Qualified Code(s): S60.221A - Contusion of right hand, initial encounter Condition: Stable Instructions: ED Sprain Hand Follow-Up: Matthew Malone MD [Primary Care Provider] - Discharge Date/Time: 04/25/20 22:40
--- NOTE | 2020-04-26 09:39 | XRAY Report ---
PROCEDURE: Hand 3 View RT INDICATIONS: FELL/LANDED R HAND.PAIN/TENDERNESS R HAND 4/5TH DI TECHNIQUE: 5 views of the hand(s) acquired. COMPARISON: Wrist radiographs FINDINGS: Bones: Postsurgical changes of resection of the proximal row. Corticated ossific fragments along the surgical bed are unchanged and may be postsurgical. Remote fracture of the fifth metacarpal is unchan ged. Small intraosseous cyst within the capitate, this may be degenerative in etiology given articula tion with the radius. Interval changes of the radiocarpal joint are slightly worsened from comparison . Additional mild degenerative changes of the interphalangeal and first metacarpophalangeal joints. N o acute fracture or dislocation. Soft tissues: Mild soft tissue zone throughout the wrist. IMPRESSION: Stable postsurgical changes without acute osseous abnormality. Mild soft tissue swelling. Interval worsening of degenerative changes of the radiocarpal joint along with mild degenerative vargas ges of the hand. Agree with preliminary report. Reviewed by: Pedro Anderson DO on 04/26/2020 8:37 AM [place] Approved by: Pedro Anderson DO on 04/26/2020 8:37 AM [place] Station ID: [id number]
== END 2020-04-25 22:40 | disposition home or self-care (01) ==
LOC: ED 21:31
DX: S60.221A Contusion of right hand, initial encounter (principal); W01.0XXA Fall on same level from slipping, tripping and stumbling without subsequent striking against object, initial encounter; Y92.009 Unspecified place in unspecified non-institutional (private) residence as the place of occurrence of the external cause; M54.9 Dorsalgia, unspecified; G89.29 Other chronic pain; I10 Essential (primary) hypertension; E11.9 Type 2 diabetes mellitus without complications; Z79.4 Long term (current) use of insulin; F17.200 Nicotine dependence, unspecified, uncomplicated
CPT/HCPCS: 29125; 99282; 99283

== ENCOUNTER 2020-06-20 18:54 | Outpatient (CLI) | payer MEDICAID ==
--- NOTE | 2020-06-20 20:06 | XRAY Report ---
PROCEDURE: Knee Standing LT INDICATIONS: LEFT KNEE PAIN TECHNIQUE: 3 views of the left knee. COMPARISON: None. FINDINGS: Bones: No acute fractures or dislocations. No suspicious bony lesions. Mild patellofemoral compartm ent osteoarthritic changes are seen. Soft tissues: Small suprapatellar joint effusion is seen. No suspicious soft tissue calcification. IMPRESSION: Mild patellofemoral compartment osteoarthritis and small suprapatellar joint effusion. No fracture or dislocation. Reviewed by: Justin Byrd MD on 06/20/2020 8:05 PM PDT Approved by: Justin Byrd MD on 06/20/2020 8:05 PM PDT Station ID: [id number]
== END 2020-06-20 18:55 | disposition home or self-care (01) ==
LOC: DI.N 18:54
PROVIDERS: ATTEND Family Medicine
DX: M25.562 Pain in left knee (principal); M25.462 Effusion, left knee; M17.12 Unilateral primary osteoarthritis, left knee

== ENCOUNTER 2020-07-01 20:37 | Outpatient (CLI) | payer MEDICAID ==
--- OUTSIDE RECORDS SUMMARY | 2020-07-09 00:09 | EXTERNAL MEDICAL SUMMARY RPT | Continuity of Care Document ---
: Demographics Phone Unavailable Preferred Language Sammarinese Marital Status Unknown Baptism Affiliation Unknown Race Unknown Ethnic Group Unknown Author Organization [place] Address [address] [place] [address] Phone Care Team Providers Name Role Phone Thanh Guevara Unavailable Unavailable Problems date description facility [id number] [facility] Social History date description facility [id number]
== END 2020-07-01 20:38 | disposition critical access hospital (66) ==
LOC: EMS 20:37
PROVIDERS: ATTEND Emergency Medicine
DX: M25.552 Pain in left hip (principal); M25.571 Pain in right ankle and joints of right foot; M79.661 Pain in right lower leg
CPT/HCPCS: A0425; A0429

== ENCOUNTER 2020-07-01 20:59 | Emergency (ER) | payer MEDICAID ==
[2020-07-01] MEDS ORDERED: KETOROLAC 60 MG/2 ML VIAL IM STA (22:53)
--- NOTE | 2020-07-01 22:57 | ED Physician Documentation ---
PD HPI LOWER EXT INJURY - Stated complaint Stated Complaint: GLF - Chief complaint Chief Complaint: Trauma Ext - History obtained from History obtained from: Patient - Additional information Additional information: Patient comes emergency department chief complaint of pain in his right lower leg and ankle, as well as his left hip after falling in the bathtub. Patient states that he was stepping in with his right foot and he slipped on the wet floor of the tub. His foot slid and he fell to his left side, hitting the edge of the tub. Patient denies hitting his head or losing consciousness. He takes an aspirin daily but is not on any other anticoagulation. Patient denies any other complaints at this time. Review of Systems Ten Systems: 10 systems reviewed and negative Constitutional: reports: Reviewed and negative Eyes: reports: Reviewed and negative Ears: reports: Reviewed and negative Nose: reports: Reviewed and negative Throat: reports: Reviewed and negative Cardiac: reports: Reviewed and negative Respiratory: reports: Reviewed and negative GI: reports: Reviewed and negative : reports: Reviewed and negative Skin: reports: Reviewed and negative Musculoskeletal: reports: Extremity pain, Joint pain, Extremity swelling, Pain with weight bearing. denies: Neck pain, Back pain Neurologic: reports: Reviewed and negative Psychiatric: reports: Reviewed and negative Endocrine: reports: Reviewed and negative Immunocompromised: reports: Reviewed and negative PD PAST MEDICAL HISTORY - Past Medical History Past Medical History: Yes Cardiovascular: Hypertension, High cholesterol, [place], Murmur Respiratory: None Neuro: None Endocrine/Autoimmune: Type 2 diabetes, HyPOthyroidism GI: None : Kidney stones HEENT: None Psych: Depression, Bipolar disorder Musculoskeletal: Chronic back pain Derm: Other - Past Surgical History Past Surgical History: Yes General: Appendectomy Ortho: ACL reconstruction - Present Medications Home Medications: Ambulatory Orders Medication Instructions Recorded Confirmed Insulin Glargine,Hum.rec.anlog 25 unit SUBQ QPM 10/27/17 07/01/20 [Basaglar Kwikpen U-100] methIMAzole [Methimazole] 5 mg PO BID 10/30/18 07/01/20 Cefadroxil [Duricef] 500 mg PO BID 07/04/19 07/01/20 Duloxetine HCl [Cymbalta] 60 mg PO DAILY 04/24/20 07/01/20 Gabapentin [Neurontin] 600 mg PO TID 04/24/20 07/01/20 Glimepiride [Amaryl] 4 mg PO DAILY 04/24/20 07/01/20 Nortriptyline [Pamelor] 10 mg PO DAILY 04/24/20 07/01/20 Tizanidine HCl [Zanaflex] 4 mg PO Q8H 04/24/20 07/01/20 - Allergies Allergies/Adverse Reactions: Allergies Allergy/AdvReac Type Severity Reaction Status Date / Time adhesive tape Allergy Rash Verified 07/01/20 21:08 pregabalin [From Lyrica] Allergy Unknown Verified 07/01/20 21:08 - Social History Does the pt smoke?: Yes Smoking Status: Current every day smoker Does the pt drink ETOH?: Yes Does the pt have substance abuse?: Yes - Immunizations Immunizations are current?: Yes - POLST Patient has POLST: No POLST Status: Full Code PD ED PE NORMAL - Vitals Vital signs reviewed: Yes - General General: Alert and oriented X 3, No acute distress, Well developed/nourished - HEENT HEENT: Atraumatic, PERRL, EOMI, Moist mucous membranes - Neck Neck: Supple, no meningeal sign - Cardiac Cardiac: RRR, No murmur - Respiratory Respiratory: No respiratory distress, Clear bilaterally - Abdomen Abdomen: Soft, Non tender, Non distended - Back Back: No spinal TTP - Derm Derm: Normal color, Warm and dry, No rash, Other (Contusion anterior right lateral ankle. Mild localized edema. Fusion mid right anterior tibial area. Mild edema localized to contusion) - Extremities Extremities: No deformity, Other (Point tenderness right anterolateral ankle with localized contusion as noted above. Localized edema as above. Tenderness over left lateral hip and iliac wing. 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, No motor deficit, No sensory deficit, Normal speech - Psych Psych: Normal mood, Normal affect Results - Vitals Vitals: Vital Signs - 24 hr 07/01/20 07/01/20 07/01/20 21:02 21:04 22:20 Temperature 36.9 C 36.9 C Heart Rate 122 H 123 H Respiratory 18 16 18 Rate Blood Pressure 133/106 H 133/106 H O2 Saturation 97 96 07/01/20 07/01/20 07/02/20 23:00 23:50 00:08 Temperature Heart Rate 107 H 120 H 75 Respiratory 17 20 17 Rate Blood Pressure 123/103 H 152/102 H O2 Saturation 100 98 100 07/02/20 00:14 Temperature Heart Rate 103 H Respiratory 17 Rate Blood Pressure 123/95 H O2 Saturation 98 Oxygen O2 Source Room air - Rads (name of study) tib fib XR Radiology: Final report received, EMP read indepedently, See rad report (neg) R ankle XR Radiology: Final report received, EMP read indepedently, See rad report (neg) L hip/pelvis XR Radiology: Final report received, EMP read indepedently, See rad report (neg) PD MEDICAL DECISION MAKING - ED course Complexity details: reviewed results, re-evaluated patient, considered cezar pugh, d/w patient ED course: Patient was given a dose of Toradol. X-rays of his left hip and pelvis, as well as right ankle and tib-fib were all unremarkable. We have discussed pain management at home. The patient was given crutches and is right ankle was wrapped in an Adeel wrap. The patient has been found to have contusions and is stable for discharge home. Departure - Departure Disposition: 01 Home, Self Care Clinical Impression: Contusion of right tibia Contusion of ankle, right Qualifiers: Encounter type: initial encounter Qualified Code(s): S90.01XA - Contusion of right ankle, initial encounter Contusion of left hip Qualifiers: Encounter type: initial encounter Qualified Code(s): S70.02XA - Contusion of left hip, initial encounter Condition: Stable Instructions: ED Contusion Lower Ext Comments: Your x-rays show no broken bones whatsoever. You do have a bruise on the front of your ankle, as well as over your montanez and most likely bruised your hip as well. You may use ice and ibuprofen to help with the bruising. Please take 800 mg of ibuprofen every 8 hours or 600 mg every 6 hours, as needed for pain. You may also use Tylenol if needed. Please use the crutches if you feel that it is too uncomfortable to put pain on your right foot/ankle. You may use the Adeel wrap for support until the bruising goes down and you are feeling better. Discharge Date/Time: 07/02/20 00:20
[2020-07-01] MEDS ORDERED: ONDANSETRON ODT 4 MG TABLET TL STA (23:08)
[2020-07-02 00:14] VITALS: BP 123/95
--- NOTE | 2020-07-02 11:12 | XRAY Report ---
PROCEDURE: Ankle 3 View RT INDICATIONS: fall/pain TECHNIQUE: 3 views of the ankle were acquired. COMPARISON: X-ray lower extremity 07/01/2020 FINDINGS: Bones: No fractures or dislocations. Ankle mortise is normally aligned. No suspicious bony lesions . Soft tissues: No tibiotalar joint effusion. Achilles tendon appears normal. IMPRESSION: No visualized acute fracture or dislocation. However, occult injury cannot be excluded. Recommend short interval imaging follow-up in 7-10 days as clinically indicated for additional evalua tion. The above findings are concordant with preliminary report. Reviewed by: Tamiko Felder MD on 07/02/2020 11:11 AM PDT Approved by: Tamiko Felder MD on 07/02/2020 11:11 AM PDT Station ID: [id number]
--- NOTE | 2020-07-02 11:13 | XRAY Report ---
PROCEDURE: Tib/Fib RT INDICATIONS: pain/swelling after fall TECHNIQUE: 2 views of the tibia and fibula were acquired. COMPARISON: X-ray ankle FINDINGS: Bones: No fractures or dislocations. No suspicious bony lesions. Soft tissues: No suspicious soft tissue calcifications or masses. IMPRESSION: No visualized acute fracture or dislocation. However, occult injury cannot be excluded. Recommend lux rt interval imaging follow-up in 7-10 days as clinically indicated for additional evaluation. The above findings are concordant with preliminary report. Reviewed by: Tamiko Felder MD on 07/02/2020 11:12 AM PDT Approved by: Tamiko Felder MD on 07/02/2020 11:12 AM PDT Station ID: [id number]
--- NOTE | 2020-07-02 11:13 | XRAY Report ---
PROCEDURE: Hip w/Pelvis 2-3V LT INDICATIONS: fall pain TECHNIQUE: AP pelvis with lateral view(s) of the left hip(s). COMPARISON: X-ray 11/15/2019 FINDINGS: Bones: No fractures or dislocations. Pelvic ring appears intact. No suspicious bony lesions. Soft tissues: The visualized bowel gas pattern is normal. No suspicious soft tissue calcifications. IMPRESSION: No visualized acute fracture or dislocation. However, occult injury cannot be excluded. Recommend short interval imaging follow-up in 7-10 days as clinically indicated for additional evalua tion. The above findings are concordant with preliminary report. Reviewed by: Tamiko Felder MD on 07/02/2020 11:12 AM PDT Approved by: Tamiko Felder MD on 07/02/2020 11:12 AM PDT Station ID: [id number]
== END 2020-07-02 00:20 | disposition home or self-care (01) ==
LOC: ED 20:59
DX: S80.11XA Contusion of right lower leg, initial encounter (principal); S90.01XA Contusion of right ankle, initial encounter; S70.02XA Contusion of left hip, initial encounter; W18.2XXA Fall in (into) shower or empty bathtub, initial encounter; Y93.E1 Activity, personal bathing and showering; I10 Essential (primary) hypertension; E11.9 Type 2 diabetes mellitus without complications; Z79.4 Long term (current) use of insulin; Z79.82 Long term (current) use of aspirin; F17.200 Nicotine dependence, unspecified, uncomplicated
CPT/HCPCS: 73502; 73590; 73610; 96372; 99283; 99284; Q0162

== ENCOUNTER 2020-07-16 10:34 | Outpatient (CLI) | payer MEDICAID ==
[2020-07-16 18:19] LABS: MICROALBUM/CREATININE RATIO,UR 98.6 ug/mg (<30.0); MICROALBUMIN,URINE 20.4 mg/dL (0-300.0)
[2020-07-16 18:27] LABS: CALCIUM 9.7 mg/dL (8.5-10.3); CREATININE 0.7 mg/dL (0.6-1.2); POTASSIUM 4.3 mmol/L (3.5-5.0)
[2020-07-16 18:39] LABS: THYROID STIMULATING HORMONE 1.43 uIU/mL (0.34-5.60)
[2020-07-16 18:41] LABS: FREE T3 3.83 pg/mL (2.5-3.9); FREE T4 (FREE THYROXINE) 0.71 ng/dL (0.58-1.64)
[2020-07-16 20:30] LABS: ESTIMATED AVERAGE GLUCOSE 209 mg/dL (70-100); HEMOGLOBIN A1c% 8.9 % (4.27-6.07)
== END 2020-07-16 10:35 | disposition home or self-care (01) ==
LOC: LAB.WCP 10:34
PROVIDERS: ATTEND Family Medicine
DX: M51.06 Intervertebral disc disorders with myelopathy, lumbar region (principal); E05.90 Thyrotoxicosis, unspecified without thyrotoxic crisis or storm; G90.50 Complex regional pain syndrome I, unspecified; I10 Essential (primary) hypertension; E11.8 Type 2 diabetes mellitus with unspecified complications; Z79.4 Long term (current) use of insulin
CPT/HCPCS: 36415; 80048; 82043; 82570; 83036; 84439; 84443; 84481

== ENCOUNTER 2020-09-01 21:21 | Outpatient (CLI) | payer MEDICAID | END 2020-09-01 21:22 | disposition critical access hospital (66) | LOC: EMS 21:21 | DX: R07.9 Chest pain, unspecified (principal) | CPT/HCPCS: A0425; A0429; A0999 ==

== ENCOUNTER 2020-09-01 21:35 | Inpatient (IN) | payer MEDICAID ==
--- OUTSIDE RECORDS SUMMARY | 2020-09-01 21:42 | EXTERNAL MEDICAL SUMMARY RPT | Continuity of Care Document ---
: Demographics Phone Unavailable Preferred Language Honduran Marital Status Unknown Judaism Affiliation Unknown Race Unknown Ethnic Group Unknown Author Organization [facility] Address [address] [id number] Phone Care Team Providers Name Role Phone Matthew Malone Unavailable Unavailable Allergies Encounters Medications Problems date description facility [id number] [id number] Post-traumatic headache, unspecified, n ot intractable [facility] [id number] Lower abdominal pain, unspecified [facility] Results
[2020-09-01] MEDS ORDERED: SODIUM CHLORIDE 0.9% 1,000 ML IV STA ×2 (21:51→22:47)
[2020-09-01 21:54] LABS: BASOPHILS % (AUTO) 0.3 %; EOSINOPHILS # (AUTO) 0.1 10^3/uL (0.0-0.7); HCT - HEMATOCRIT 44.1 % (42.0-52.0); HGB - HEMOGLOBIN 15.1 g/dL (14.0-18.0); LYMPHOCYTES # (AUTO) 1.9 10^3/uL (1.5-3.5); LYMPHOCYTES % (AUTO) 25.8 %; MEAN CORPUSCULAR HEMOGLOBIN 31.3 pg (27.0-31.0); MEAN CORPUSCULAR HGB CONC 34.2 g/dL (32.0-36.0); MEAN CORPUSCULAR VOLUME 91.5 fL (80.0-94.0); MEAN PLATELET VOLUME 11.3 fL (7.4-11.4); MONOCYTES % (AUTO) 13.9 %; NEUTROPHILS # (AUTO) 4.3 10^3/uL (1.5-6.6); NEUTROPHILS % (AUTO) 58.6 %; PLT - PLATELET COUNT 205 10^3/uL (130-450); RED BLOOD COUNT 4.82 10^6/uL (4.70-6.10); WHITE BLOOD COUNT 7.3 x10^3/uL (4.8-10.8)
--- NOTE | 2020-09-01 21:54 | ED Physician Documentation ---
PD HPI ALTERED MENTAL STATUS - Stated complaint Stated Complaint: STROKE SYMPTOMS - Chief complaint Chief Complaint: Neuro - History obtained from History obtained from: Patient, EMS - History of Present Illness Timing - onset: Today (EMS called as patient was having chest pain general weakness and noted to have high blood sugar. On their arrival he still had some chest pain then was noted to have less interaction, drowsy and complained of headache. No focal weakness but they felt his speech was slurred. EMS called code stroke) Timing - details: Abrupt onset, Still present (patient having some slurring of speech and appeared drowsy. General weakness. Complained of chest pain.) Quality / character: Less responsive Associated symptoms: Headache, General weakness, Other (chest pain). 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 denies: Loss of vision Nose: denies: Rhinorrhea / runny nose, Congestion Throat: denies: Sore throat Cardiac: reports: Chest pain / pressure (just today) Respiratory: denies: Cough GI: denies: Abdominal Pain, Vomiting, Diarrhea PD PAST MEDICAL HISTORY - Past Medical History Cardiovascular: Hypertension, High cholesterol, MO, Murmur Respiratory: None Neuro: None Endocrine/Autoimmune: Type 2 diabetes, HyPOthyroidism GI: None : Kidney stones HEENT: None Psych: Depression, Bipolar disorder Musculoskeletal: Chronic back pain Derm: Other - Past Surgical History Past Surgical History: Yes General: Appendectomy Ortho: ACL reconstruction - Present Medications Home Medications: Ambulatory Orders Medication Instructions Recorded Confirmed Insulin Glargine,Hum.rec.anlog 25 unit SUBQ QPM 10/27/17 07/01/20 [Basaglar Kwikpen U-100] methIMAzole [Methimazole] 5 mg PO BID 10/30/18 07/01/20 Duloxetine HCl [Cymbalta] 60 mg PO DAILY 04/24/20 07/01/20 Gabapentin [Neurontin] 600 mg PO TID 04/24/20 07/01/20 Glimepiride [Amaryl] 4 mg PO DAILY 04/24/20 07/01/20 Tizanidine HCl [Zanaflex] 4 mg PO Q8H 04/24/20 07/01/20 Meloxicam [Mobic] 15 mg PO DAILY 09/01/20 09/01/20 Nortriptyline [Pamelor] 25 mg PO DAILY 09/01/20 09/01/20 - Allergies Allergies/Adverse Reactions: Allergies Allergy/AdvReac Type Severity Reaction Status Date / Time adhesive tape Allergy Rash Verified 09/01/20 23:42 pregabalin [From Lyrica] Allergy Unknown Verified 09/01/20 23:42 - Social History Does the pt smoke?: Yes Smoking Status: Current every day smoker Does the pt drink ETOH?: Yes Does the pt have substance abuse?: Yes - Immunizations Immunizations are current?: Yes - POLST Patient has POLST: No POLST Status: Full Code PD ED PE NORMAL - Vitals Vital signs reviewed: Yes - General General: No acute distress, Well developed/nourished, Other (somnolent but opens eyes to verbal and tactile. Slurred speech. No facial droop. ) - HEENT HEENT: PERRL, EOMI (left eye with mild conjunctival discharge/matting. Mild hyperemia. No photosensitivity. ), Pharynx benign - Neck Neck: Supple, no meningeal sign, No adenopathy - Cardiac Cardiac: No murmur. No: RRR (tachycardic) - Respiratory Respiratory: Clear bilaterally - Abdomen Abdomen: Soft, Non tender, Non distended - Derm Derm: Warm and dry. No: Normal color (pallor) - Extremities Extremities: No edema - Neuro Neuro: Other (general weakness and not following commands as well, but then lifts arms up on his own reaching to his face. ). No: No motor deficit (left leg weakness and numbness, left arm drift, dysarthria, left face mild weakness. ) Eye Opening: To Voice Motor: Localizes to Pain Verbal: Confused GCS Score: 12 - Psych Psych: No: Normal affect (anxious appropriately) NIHSS - Level of Consciousness Level of consciousness: (0) Alert, Keenly responsive LOC Questions: (0) Answers both Q's correct LOC Commands: (0) Performs both correctly - Gaze Best Gaze: (0) Normal - Visual Visual: (0) No loss - Facial Palsy Facial Palsy: (1) Minor paralysis - Motor Arms (both separate) Motor Arm (right): (0) No drift Motor Arm (left): (1) Drift - Motor Legs (both separate) Motor Leg (right): (0) No drift Motor Leg (left): (2) Some effort against gravity - Limb Ataxia Limb Ataxia: (1) Present in 1 limb - Sensory Sensory: (1) Nopo-pk-cpwaowwu loss - Best Language Best Language: (0) No aphasia - Dysarthria Dysarthria: (1) [id number]-ab-nixupily dysarthria - Extinction and Inattention (formally neg Extinction and inattention: (0) No abnormality - Total Score/Results Total Score/Result: 7 Results - Vitals Vitals: Vital Signs - 24 hr 09/01/20 09/01/20 09/01/20 21:39 22:57 23:00 Temperature 37.3 C Heart Rate 128 H 115 H 120 H Respiratory 10 L 17 18 Rate Blood Pressure 162/96 H 149/101 H 156/103 H O2 Saturation 99 96 97 09/01/20 09/01/20 09/01/20 23:10 23:20 23:30 Temperature Heart Rate 115 H 113 H 106 H Respiratory 15 15 Rate Blood Pressure 153/101 H 153/98 H 141/98 H O2 Saturation 95 97 09/01/20 09/02/20 09/02/20 23:45 00:00 00:30 Temperature Heart Rate 114 H 113 H 106 H Respiratory 18 Rate Blood Pressure 148/92 H 162/108 H 149/96 H O2 Saturation 97 09/02/20 09/02/20 09/02/20 01:00 01:50 02:00 Temperature Heart Rate 112 H 100 99 Respiratory 15 15 16 Rate Blood Pressure 149/88 H 143/104 H 122/96 H O2 Saturation 94 94 95 09/02/20 09/02/20 02:30 04:59 Temperature 36.9 C Heart Rate 96 90 Respiratory 11 L 11 L Rate Blood Pressure 136/100 H 139/93 H O2 Saturation 95 96 Oxygen O2 Source Room air - Labs Labs: Laboratory Tests 09/01/20 09/01/20 09/01/20 21:39 21:39 21:39 WBC 7.3 RBC 4.82 Hgb 15.1 Hct 44.1 MCV 91.5 MCH 31.3 H MCHC 34.2 RDW 12.0 Plt Count 205 MPV 11.3 Neut # (Auto) 4.3 Lymph # (Auto) 1.9 [place] # (Auto) 1.0 Eos # (Auto) 0.1 Baso # (Auto) 0.0 Absolute Nucleated RBC 0.00 Nucleated RBC % 0.0 PT 11.7 INR 1.1 APTT 27.0 Sodium 140 Potassium 3.3 L Chloride 103 Carbon Dioxide 23 Anion Gap 14.0 H BUN 12 Creatinine 0.8 Estimated GFR (MDRD) 100 Glucose 285 H Calcium 9.6 Total Bilirubin 0.4 AST 19 ALT 25 Alkaline Phosphatase 71 Troponin I High Sens Total Protein 7.4 Albumin 4.6 Globulin 2.8 Albumin/Globulin Ratio 1.6 Urine Color Urine Clarity Urine pH Ur Specific [place] Urine Protein Urine Glucose (UA) Urine Ketones Urine Occult Blood Urine Nitrite Urine Bilirubin Urine Urobilinogen Ur Leukocyte Esterase Urine RBC Urine WBC Ur Squamous Epith Cells Urine Bacteria Urine Mucus Ur Microscopic Review Urine Culture Comments Nasal Adenovirus (PCR) Nasal B. parapertussis DNA (PCR) Nasal Coronavir 229E PCR Nasal Coronavir HKU1 PCR Nasal Coronavir NL63 PCR Nasal Coronavir OC43 PCR Nasal Enterovir/Rhinovir PCR Nasal Influenza B PCR Nasal Influenza A PCR Nasal Parainfluen 1 PCR Nasal Parainfluen 2 PCR Nasal Parainfluen 3 PCR Nasal Parainfluen 4 PCR Nasal RSV (PCR) Nasal B.pertussis DNA PCR Nasal C.pneumoniae (PCR) Teddy Human Metapneumo PCR Nasal M.pneumoniae (PCR) Nasal SARS-CoV-2 (PCR) Urine Opiates Screen Ur Oxycodone Screen Urine Methadone Screen Ur Propoxyphene Screen Ur Barbiturates Screen Ur Tricyclics Screen Ur Phencyclidine Scrn Ur Amphetamine Screen U Methamphetamines Scrn U Benzodiazepines Scrn Urine Cocaine Screen U Cannabinoids Screen Ethyl Alcohol Serum Ketones 09/01/20 09/01/20 09/01/20 21:39 21:39 21:39 WBC RBC Hgb Hct MCV MCH MCHC RDW Plt Count MPV Neut # (Auto) Lymph # (Auto) [place] # (Auto) Eos # (Auto) Baso # (Auto) Absolute Nucleated RBC Nucleated RBC % PT INR APTT Sodium Potassium Chloride Carbon Dioxide Anion Gap BUN Creatinine Estimated GFR (MDRD) Glucose Calcium Total Bilirubin AST ALT Alkaline Phosphatase Troponin I High Sens 4.3 Total Protein Albumin Globulin Albumin/Globulin Ratio Urine Color Urine Clarity Urine pH Ur Specific [place] Urine Protein Urine Glucose (UA) Urine Ketones Urine Occult Blood Urine Nitrite Urine Bilirubin Urine Urobilinogen Ur Leukocyte Esterase Urine RBC Urine WBC Ur Squamous Epith Cells Urine Bacteria Urine Mucus Ur Microscopic Review Urine Culture Comments Nasal Adenovirus (PCR) Nasal B. parapertussis DNA (PCR) Nasal Coronavir 229E PCR Nasal Coronavir HKU1 PCR Nasal Coronavir NL63 PCR Nasal Coronavir OC43 PCR Nasal Enterovir/Rhinovir PCR Nasal Influenza B PCR Nasal Influenza A PCR Nasal Parainfluen 1 PCR Nasal Parainfluen 2 PCR Nasal Parainfluen 3 PCR Nasal Parainfluen 4 PCR Nasal RSV (PCR) Nasal B.pertussis DNA PCR Nasal C.pneumoniae (PCR) Teddy Human Metapneumo PCR Nasal M.pneumoniae (PCR) Nasal SARS-CoV-2 (PCR) Urine Opiates Screen Ur Oxycodone Screen Urine Methadone Screen Ur Propoxyphene Screen Ur Barbiturates Screen Ur Tricyclics Screen Ur Phencyclidine Scrn Ur Amphetamine Screen U Methamphetamines Scrn U Benzodiazepines Scrn Urine Cocaine Screen U Cannabinoids Screen Ethyl Alcohol < 5.0 Serum Ketones NEGATIVE 09/01/20 09/01/20 09/02/20 23:21 23:21 02:45 WBC RBC Hgb Hct MCV MCH MCHC RDW Plt Count MPV Neut # (Auto) Lymph # (Auto) [place] # (Auto) Eos # (Auto) Baso # (Auto) Absolute Nucleated RBC Nucleated RBC % PT INR APTT Sodium Potassium Chloride Carbon Dioxide Anion Gap BUN Creatinine Estimated GFR (MDRD) Glucose Calcium Total Bilirubin AST ALT Alkaline Phosphatase Troponin I High Sens 5.4 Total Protein Albumin Globulin Albumin/Globulin Ratio Urine Color YELLOW Urine Clarity CLEAR Urine pH 6.5 Ur Specific [place] 1.010 Urine Protein 100 H Urine Glucose (UA) 500 H Urine Ketones 15 H Urine Occult Blood MODERATE H Urine Nitrite NEGATIVE Urine Bilirubin NEGATIVE Urine Urobilinogen 0.2 (NORMAL) Ur Leukocyte Esterase NEGATIVE Urine RBC 6-10 H Urine WBC 0-3 Ur Squamous Epith Cells NONE SEEN Urine Bacteria None Seen Urine Mucus Moderate Strands Ur Microscopic Review INDICATED Urine Culture Comments NOT INDICATED Nasal Adenovirus (PCR) NOT DETECTED Nasal B. parapertussis DNA (PCR) NOT DETECTED Nasal Coronavir 229E PCR NOT DETECTED Nasal Coronavir HKU1 PCR NOT DETECTED Nasal Coronavir NL63 PCR NOT DETECTED Nasal Coronavir OC43 PCR NOT DETECTED Nasal Enterovir/Rhinovir PCR NOT DETECTED Nasal Influenza B PCR NOT DETECTED Nasal Influenza A PCR NOT DETECTED Nasal Parainfluen 1 PCR NOT DETECTED Nasal Parainfluen 2 PCR NOT DETECTED Nasal Parainfluen 3 PCR NOT DETECTED Nasal Parainfluen 4 PCR NOT DETECTED Nasal RSV (PCR) NOT DETECTED Nasal B.pertussis DNA PCR NOT DETECTED Nasal C.pneumoniae (PCR) NOT DETECTED Teddy Human Metapneumo PCR NOT DETECTED Nasal M.pneumoniae (PCR) NOT DETECTED Nasal SARS-CoV-2 (PCR) NOT DETECTED Urine Opiates Screen POSITIVE H Ur Oxycodone Screen NEGATIVE Urine Methadone Screen NEGATIVE Ur Propoxyphene Screen NEGATIVE Ur Barbiturates Screen NEGATIVE Ur Tricyclics Screen POSITIVE H Ur Phencyclidine Scrn NEGATIVE Ur Amphetamine Screen NEGATIVE U Methamphetamines Scrn NEGATIVE U Benzodiazepines Scrn NEGATIVE Urine Cocaine Screen NEGATIVE U Cannabinoids Screen POSITIVE H Ethyl Alcohol Serum Ketones - Rads (name of study) head CT stroke protocol Radiology: Prelim report reviewed, Discussed with rads (no acute findings), See rad report head/neck angio Radiology: Prelim report reviewed (normal large vessel flow. less than 50% stenoses a neck. No acute process. No noted dissection.), See rad report chest CT Radiology: Prelim report reviewed (prominent thoracic aorta without aneurysm. No acute lung process. mild atelectasis. no infiltates.), See rad report chest angio aorta Radiology: Prelim report reviewed (no aneurysms nor dissection), See rad report PD MEDICAL DECISION MAKING - ED course Complexity details: reviewed results (Initial CT/angio head and neck did not show acute process. CT chest without obvious process. I then got dedicated chest angio for aorta. This was normal, without dissection/aneurysm. ), re-evaluated patient (Still having undulating left chest pain and persists with left weakness. ), considered differential (Patient came in as code stroke because of trouble speaking and altered mental status abruptly. Quick evaluation and then to CT for imaging. History from medics was initial report of chest pain so added CT angio chest at the head imaging was already done. Rad did not want another dye load rightaway), d/w patient, d/w telecom sales consultant ([facility] stroke neurology - who felt no interventions since confounded with chest pain, no LVO, and time frame now over 3-4 hours from onset. Eval with MRI/ECHO/etc as usual for r/o CVA. However does not explain CP. Dr. Molina discussion and he felt patient better at larger facility. ) ED course: Discussion with hospitalist here was perhaps benefit at a larger facility. No beds were available at multiple facilities. had beds available discussion with neurology and cardiology both declined transfer to their services. Transfer center did not feel medicine team would take the patient though I did not talk with them directly. I discussed again with Dr. Ferris who would admit the patient here. Departure - Departure Disposition: 66 [facility] DC/Xfer Clinical Impression: Acute left-sided weakness, Left-sided chest pain, Cerebrovascular accident (CVA) Condition: Stable Record reviewed to determine appropriate education?: Yes
[2020-09-01 21:59] LABS: INR 1.1 (0.8-1.2); PT - PROTHROMBIN TIME 11.7 secs (9.9-12.6)
[2020-09-01 22:09] LABS: ALBUMIN 4.6 g/dL (3.2-5.5); ALBUMIN/GLOBULIN RATIO 1.6 (1.0-2.2); BILIRUBIN,TOTAL 0.4 mg/dL (0.2-1.0); CALCIUM 9.6 mg/dL (8.5-10.3); CREATININE 0.8 mg/dL (0.6-1.2); POTASSIUM 3.3 mmol/L (3.5-5.0); TOTAL PROTEIN 7.4 g/dL (6.7-8.2)
[2020-09-01] MEDS ORDERED: HYDROmorphone 1 MG/ML CARPUJECT IVP STA ×2 (22:47→23:31)
[2020-09-01] MEDS ORDERED: ENALAPRILAT 1.25 MG/ML VIAL IVP STA (22:48)
[2020-09-01] MEDS: IOVERSOL 320 100 ML VIAL IVP ONE (22:50)
[2020-09-01 23:27] LABS: MUDS CUTOFF CONCENTRATIONS CUTOFF CONC BELOW:
[2020-09-01 23:31] LABS: BILIRUBIN,URINE NEGATIVE (NEGATIVE); GLUCOSE, URINE (UA) 500 mg/dL (NEGATIVE); KETONES,URINE (UA) 15 mg/dL (NEGATIVE); LEUKOCYTE ESTERASE, URINE NEGATIVE (NEGATIVE); NITRITE,URINE NEGATIVE (NEGATIVE); OCCULT BLOOD,URINE MODERATE (NEGATIVE); PH,URINE 6.5 PH (5.0-7.5); PROTEIN,URINE 100 mg/dL (NEGATIVE); UROBILINOGEN,URINE 0.2 (NORMAL) E.U./dL (NORMAL)
[2020-09-01 23:32] LABS: CLARITY,URINE CLEAR (CLEAR)
[2020-09-01 23:40] LABS: BACTERIA,URINE None Seen /HPF (None Seen); MUCUS,URINE Moderate Strands; SQUAMOUS EPITHELIAL CELL,UR NONE SEEN (<= Few); WBC,URINE 0-3 /HPF (0-3)
[2020-09-01 23:48] LABS: AMPHETAMINE SCREEN,URINE NEGATIVE (NEGATIVE); BARBITURATE SCREEN,UR NEGATIVE (NEGATIVE); BENZODIAZEPINES SCREEN, URINE NEGATIVE (NEGATIVE); COCAINE SCREEN URINE NEGATIVE (NEGATIVE); METHADONE SCREEN, URINE NEGATIVE (NEGATIVE); METHAMPHETAMINES SCREEN, URINE NEGATIVE (NEGATIVE); OPIATE SCREEN, URINE POSITIVE (NEGATIVE); OXYCODONE SCREEN, URINE NEGATIVE (NEGATIVE); PROPOXYPHENE SCREEN, URINE NEGATIVE (NEGATIVE); THC CANNABINOID SCREEN, URINE POSITIVE (NEGATIVE); TRICYCLIC ANTIDEPRESSANT,URINE POSITIVE (NEGATIVE)
[2020-09-02 00:13] LABS: B. PARAPERTUSSIS- RESP PCR PAN NOT DETECTED; B. PERTUSSIS- RESP PCR PANEL NOT DETECTED; C. PNEUMONIAE- RESP PCR PANEL NOT DETECTED; CORONAVIRUS 229E-RESP PCR NOT DETECTED; CORONAVIRUS HKU1-RESP PCR NOT DETECTED; CORONAVIRUS NL63-RESP PCR NOT DETECTED; CORONAVIRUS OC43-RESP PCR NOT DETECTED; HUMAN METAPNEUMOVIRUS NOT DETECTED; INFLUENZA A- RESP PCR PANEL NOT DETECTED; INFLUENZA B - RESP PCR PANEL NOT DETECTED; M. PNEUMONIAE- RESP PCR PANEL NOT DETECTED; PARAINFLUENZA VIRUS 1 NOT DETECTED; PARAINFLUENZA VIRUS 2 NOT DETECTED; PARAINFLUENZA VIRUS 3 NOT DETECTED; PARAINFLUENZA VIRUS 4 NOT DETECTED; RHINOVIRUS/ENTEROVIRUS NOT DETECTED; RSV- RESP PCR PANEL NOT DETECTED; SARS-CoV-2 -RESP PCR PANEL NOT DETECTED
[2020-09-02] MEDS ORDERED: IOVERSOL 320 100 ML VIAL IVP ONE ×2 (01:12→02:04)
[2020-09-02] MEDS: IOVERSOL 320 100 ML VIAL IVP ONE ×3 (01:47→02:05)
[2020-09-02] MEDS ORDERED: HYDROmorphone 1 MG/ML CARPUJECT IVP STA (01:50)
[2020-09-02] MEDS ORDERED: KETOROLAC 30 MG/ML VIAL IVP STA (02:46)
[2020-09-02] MEDS ORDERED: ASPIRIN 300 MG SUPP PR STA (03:39)
[2020-09-02] MEDS ORDERED: oxyCODONE 5 MG TABLET PO PRN (05:17)
[2020-09-02] MEDS ORDERED: SODIUM CHLORIDE FLUSH 0.9% 10 ML SYRINGE IVP PRN (05:17)
--- NOTE | 2020-09-02 05:24 | HISTORY & PHYSICAL EXAMINATION ---
Chief Complaint - Chief Complaint Chief Complaint: Back pain and weakness History of Present Illness - Admitted From Admitted From:: Home - History Obtained From Records Reviewed: Yes History obtained from: Patient, ER Physician, EMR Exam Limitations: Patient has dysarhria and is difficult to comprehend. - History of Present Illness HPI Comment/Other: This is a 54-year-old male with a past medical history significant for insulin- dependent diabetes mellitus, history of stroke with minimal residual left-sided weakness, history of cardiac arrest who presents today complaining of worsening back pain and left-sided weakness. He states he has had back pain for last 3 to 4 days but this has progressed and became so severe last night. He says is predominant located in his right shoulder blade but does radiate to his chest. He denies a history of coronary artery disease or myocardial infarction. He states he did fall back in June while in the shower and hit his back. He also noticed that around 7 PM last night, he had worsening of his left sided weakness and had difficulty with his speech. When EMS arrived, they noted that he was still having chest pain became less interactive and had become more drowsy. It was also noticed that his speech was slurred and so he was brought to the emergency department as a stroke alert. The patient states he did have a stroke last year when he was hospitalized at [facility] in [place]. He reports having a cardiac arrest 3 times during that hospitalization. He states he is on aspirin at home. He reports his blood glucose has been elevated yesterday and that he has been compliant with his insulin. Rest of the history is limited due to his dysarthria. In the emergency department, he underwent a CT of the head which was unremarkable. He then underwent a CTA of the head and neck which showed no significant stenosis. There was concern for potential dissection given his severe back pain and his neurologic deficits and so he underwent further imaging with a CTA of the chest which did not reveal a dissection. His EKG did not suggest ischemia and his troponin was negative x2. After discussion with the emergency room provider, given the patient's ongoing chest pain and neuro deficits, it was felt that he might be better served at a higher level of care with cardiology and neurology. The ER physician did speak with multiple hospitals but unfortunately there were no beds available and after speaking to [facility], cardiology and neurology both declined transfer to their services and so he will be admitted here for further work-up and ma nagement. He did receive rectal aspirin in the emergency department. I did ask him about goals of care and he would like to be a full code. History - Past Medical History Cardiovascular: reports: Hypertension, High cholesterol Respiratory: reports: None Neuro: reports: CVA Endocrine/Autoimmune: reports: Type 2 diabetes, HyPOthyroidism GI: reports: None : reports: Kidney stones HEENT: reports: None Psych: reports: Depression, Bipolar disorder Musculoskeletal: reports: Chronic back pain Derm: reports: Other MRSA Hx?: No - Past Surgical History General: reports: Appendectomy Ortho: reports: ACL reconstruction - Family & Social History Family History Comment/Other: He does not know his family's medical history. Living arrangement: At home Living Situation: With family Social History Notes: The patient lives at home with his daughter. He quit smoking in 2013 but did smoke about a half a pack a day prior to that. Review of prior records reveal that he is has smoked for about 30 years. His urine toxicology is positive for marijuana. He reports minimal alcohol use. - POLST Patient has POLST: No POLST Status: Full Code Meds/Allgy - Home Medications Home Medications: Ambulatory Orders Medication Instructions Recorded Confirmed Insulin Glargine,Hum.rec.anlog 25 unit SUBQ QPM 10/27/17 07/01/20 [Basaglar Kwikpen U-100] methIMAzole [Methimazole] 5 mg PO BID 10/30/18 07/01/20 Duloxetine HCl [Cymbalta] 60 mg PO DAILY 04/24/20 07/01/20 Gabapentin [Neurontin] 600 mg PO TID 04/24/20 07/01/20 Glimepiride [Amaryl] 4 mg PO DAILY 04/24/20 07/01/20 Tizanidine HCl [Zanaflex] 4 mg PO Q8H 04/24/20 07/01/20 Meloxicam [Mobic] 15 mg PO DAILY 09/01/20 09/01/20 Nortriptyline [Pamelor] 25 mg PO DAILY 09/01/20 09/01/20 - Allergies Allergies/Adverse Reactions: Allergies Allergy/AdvReac Type Severity Reaction Status Date / Time adhesive tape Allergy Rash Verified 09/01/20 23:42 pregabalin [From Lyrica] Allergy Unknown Verified 09/01/20 23:42 Review of Systems - Constitutional Constitutional: denies: Fever, Chills - Cardiovascular Cariovascular: reports: Chest pain. denies: Exertional dyspnea, Decr. exercise tolerance - Respiratory Respiratory: denies: Cough, SOB at rest, SOB with exertion - Gastrointestinal Gastrointestinal: reports: Abdominal pain. denies: Abdominal distention, Vomiting - Genitourinary Genitourinary: denies: Dysuria, Frequency, Hematuria - Musculoskeletal Musculoskeletal: reports: Muscle pain, Back pain - Neurological Neurological: reports: General weakness, Focal weakness, Numbness, Slurred speech - All Other Systems All Other Systems: reports: Other (Review of systems is limited due to his dysarthria and distress.) Prior Level of Functionality: He is independent with his ADL's. Exam - Vital Signs Reviewed Vital Signs: Yes Vital Signs: Vital Signs x48h Temp Pulse Resp BP Pulse Ox 09/02/20 04:59 90 11 L 139/93 H 96 09/02/20 02:30 36.9 C 96 11 L 136/100 H 95 09/02/20 02:00 99 16 122/96 H 95 09/02/20 01:50 100 15 143/104 H 94 09/02/20 01:00 112 H 15 149/88 H 94 09/02/20 00:30 106 H 149/96 H 09/02/20 00:00 113 H 18 162/108 H 97 09/01/20 23:45 114 H 148/92 H 09/01/20 23:30 106 H 15 141/98 H 97 09/01/20 23:20 113 H 153/98 H 09/01/20 23:10 115 H 15 153/101 H 95 09/01/20 23:00 120 H 18 156/103 H 97 09/01/20 22:57 115 H 17 149/101 H 96 09/01/20 21:39 37.3 C 128 H 10 L 162/96 H 99 - Physical Exam General Appearance: positive: Alert, Moderate distress Eyes Bilateral: positive: Conjunctivae nml ENT: positive: ENT inspection nml Neck: positive: Nml inspection Respiratory: positive: No respiratory distress. negative: Wheezes, Rales Cardiovascular: positive: Tachycardia. negative: Irregularly irregular, Systolic murmur Abdomen: positive: Nml bowel sounds, Tenderness (Suprapubic region.). negative: Guarding, Rebound Skin: positive: Warm, Dry Extremities: positive: No pedal edema Neurologic/Psychiatric: positive: Slurred/abnml speech, Other (Sensation is intact. He has abnormal tnlpeu-rs-evod test with both the right and left upper extremities.). negative: Motor nml (He has 5 out of 5 motor strength in his right upper and lower extremities. He has about 3 out of 5 motor strength in his left upper extremity and 2 out of 5 in his left lower extremity.), Disoriented to person, Disoriented to place Conclusion/Plan - Problem List (1) Cerebrovascular accident (CVA) Conclusion/Plan: His presentation is most definitely concerning for a stroke given his significant left-sided weakness and dysarthria. He was not a candidate for TPA due to being outside of the window. CT the head was unremarkable and CT of the head and neck did not reveal any significant stenosis. Given he is already on aspirin, we will give him 3 mg of Plavix now and continue him on 75 mg daily. We will start him on Lipitor. We will allow for permissive hypertension. Obtain MRI of the brain today. Monitor on telemetry and obtain echocardiogram. Neurochecks. Check A1c and lipid panel. PT and OT have been consulted. He will be n.p.o. given the dysarthria until he is evaluated by speech therapy. We will request prior records from [facility] given he was hospitalized there last year for a stroke. (2) Chest pain Conclusion/Plan: The etiology of his chest/back pain is not clear. He does have tenderness over his thoracic spine but CT did not reveal any acute abnormalities and it would not explain the pain radiating to his chest. CTA of the chest was negative for dissection. His EKG revealed nonspecific ST segment changes. His initial troponins have been negative x2. At this time, we will obtain echocardiogram and trend his troponin. Monitor on telemetry. We will look to obtain a stress test during this hospitalization. Qualifiers: Chest pain type: unspecified Qualified Code(s): R07.9 - Chest pain, unspecified (3) Hypertension Conclusion/Plan: He does have a history of hypertension but not on any antihypertensives at home. His blood pressure is currently in the 130s although initially upon arrival it was in the 150s systolic. We will allow for permissive hypertension given the concern for stroke. Qualifiers: Hypertension type: essential hypertension Qualified Code(s): I10 - Essentia l (primary) hypertension (4) Insulin dependent type 2 diabetes mellitus, uncontrolled Conclusion/Plan: His last A1c in July was 8.9%. He is on Lantus and oral hypoglycemic agents at home. We will resume his home dose of Lantus plus sliding scale. Repeat A1c. - Lab Results Lab results reviewed: Yes Fish Bones: 09/02/20 05:38 09/02/20 05:38 - Diagnostic Imaging Results Diagnostic Imaging Results: positive: Prelim report reviewed - EKG Results EKG Interpreted Independently: Yes EKG Comparison: Changed from prior EKG (Compared to prior EKG, his rate has increased.) EKG Findings: EKG shows sinus tachycardia with nonspecific ST segment changes. Core Measures - Anticipated LOS I expect patient to be DC'd or transferred within 96 hours.: Yes - Issues Hospital Issues and Management Plan: 54-year-old male presents with back/chest pain and left-sided deficits concerning for stroke. We will admit for further stroke work-up and consideration of stress test for his chest pain. - DVT/VTE - Prophylaxis VTE/DVT Device ordered at admit?: Yes VTE/DVT Prophylaxis med ordered at admit?: Yes
--- OUTSIDE RECORDS SUMMARY | 2020-09-02 05:34 | EXTERNAL MEDICAL SUMMARY RPT | Continuity of Care Document ---
: Demographics Phone Unavailable Preferred Language Serbian Marital Status Unknown [facility] Affiliation Unknown Race Unknown Ethnic Group Unknown Author Organization [facility] Address [address] [place] [address] Phone Care Team Providers Name Role Phone Matthew Malone Unavailable Unavailable Allergies Encounters Medications Problems date description facility [id number] [id number] Post-traumatic headache, unspecified, n ot intractable [facility] [id number] Lower abdominal pain, unspecified [facility] Results
[2020-09-02 05:43] LABS: BASOPHILS % (AUTO) 0.4 %; EOSINOPHILS # (AUTO) 0.1 10^3/uL (0.0-0.7); EOSINOPHILS % (AUTO) 1.3 %; HCT - HEMATOCRIT 39.9 % (42.0-52.0); HGB - HEMOGLOBIN 13.7 g/dL (14.0-18.0); LYMPHOCYTES # (AUTO) 1.5 10^3/uL (1.5-3.5); LYMPHOCYTES % (AUTO) 19.6 %; MEAN CORPUSCULAR HEMOGLOBIN 31.6 pg (27.0-31.0); MEAN CORPUSCULAR HGB CONC 34.3 g/dL (32.0-36.0); MEAN CORPUSCULAR VOLUME 92.1 fL (80.0-94.0); MONOCYTES % (AUTO) 12.4 %; NEUTROPHILS # (AUTO) 5.2 10^3/uL (1.5-6.6); PLT - PLATELET COUNT 174 10^3/uL (130-450); RED BLOOD COUNT 4.33 10^6/uL (4.70-6.10); RED CELL DISTRIBUTION WIDTH 12.2 % (12.0-15.0); WHITE BLOOD COUNT 7.8 x10^3/uL (4.8-10.8)
[2020-09-02 05:53] LABS: CALCIUM 8.5 mg/dL (8.5-10.3); CREATININE 0.6 mg/dL (0.6-1.2); POTASSIUM 3.8 mmol/L (3.5-5.0)
[2020-09-02 06:01] LABS: CHOL/HDL RATIO 4.2 (<5.0); CHOLESTEROL 168 mg/dL; HDL CHOLESTEROL 40 mg/dL; LDL CHOLESTEROL,CALCULATED 94 mg/dL; LDL/HDL RATIO 2.4 (<3.6); TRIGLYCERIDES 169 mg/dL; VLDL CHOLESTEROL 34 mg/dL
[2020-09-02] MEDS ORDERED: CLOPIDOGREL 300 MG TABLET PO ONE (06:24)
[2020-09-02] MEDS: INSULIN REGULAR HUMAN 300 UNIT/3 ML VIAL SUBQ SCH ×3 (06:36→17:40)
[2020-09-02] MEDS: MORPHINE 2 MG/ML CARPUJECT IVP PRN ×4 (06:40→20:59)
[2020-09-02] MEDS: SODIUM CHLORIDE FLUSH 0.9% 10 ML SYRINGE IVP SCH ×2 (06:42→17:41)
[2020-09-02] MEDS: ONDANSETRON 4 MG/2 ML VIAL IVP PRN ×2 (06:50→20:40)
--- NOTE | 2020-09-02 08:21 | CT Report ---
PROCEDURE: Head W/O Stroke Protocol INDICATIONS: Altered mental status, headache TECHNIQUE: Noncontrast 4.5 mm thick angled axial sections acquired from the foramen magnum to the vertex, with c oronal reformats. For radiation dose reduction, the following was used: automated exposure control, adjustment of mA and/or kV according to patient size. COMPARISON: FINDINGS: Image quality: Excellent. CSF spaces: Basal cisterns are patent. No extra-axial fluid collections. Ventricles are normal in size and shape. Brain: No midline shift. No intracranial masses or hemorrhage. Lopez-white matter interface is norm al. Skull and face: Calvarium and visualized facial bones are intact, without suspicious lesions. Sinuses: Visualized sinuses and mastoids are clear. IMPRESSION: No acute intracranial abnormality demonstrated. No significant change from preliminary r eport. This study fulfills neurological imaging criteria for inclusion or exclusion of acute stroke therapie s based on available published neurological imaging guidelines. Reviewed by: Chacorta Wilson MD on 09/02/2020 8:20 AM PDT Approved by: Chacorta Wilson MD on 09/02/2020 8:20 AM PDT Station ID: [id number]
--- NOTE | 2020-09-02 08:35 | CT Report ---
PROCEDURE: ANGIO NECK W INDICATIONS: stroke protocol CONTRAST: IV CONTRAST: *NO IV CONTRAST PO CONTRAST: *NO PO CONTRAST TECHNIQUE: After the administration of intravenous contrast, 1.5 mm axial sections acquired from the aortic arch to the [place]. Coronal 3-D maximum intensity projection (MIP) and/or volume rendering ref ormats were then performed. For radiation dose reduction, the following was used: automated exposur e control, adjustment of mA and/or kV according to patient size. COMPARISON: None. FINDINGS: Image quality: Excellent. Carotid system: Standard 3 vessel aortic arch configuration. No stenosis of the arch branch vessel or igins. There is atherosclerotic plaque and calcification at the carotid bifurcations and extracranial internal carotid artery origins, producing approximately 40-50% stenosis on the right and minimal st enosis on the left. The remainder the extracranial carotid systems are widely patent. Posterior circulation: Origins of the vertebral arteries appear patent. There is no flow-limiting latasha nosis in the remainder of the vertebral arteries. Both vertebral arteries contribute to the basilar a rtery. Soft tissues: Regional soft tissues are within normal limits. No acute finding in the included lung a pices. No definite thyroid nodule. Bones: No suspicious bony lesions. Visualized cervical spine appears normally aligned. Degenerati ve changes. IMPRESSION: No imaging evidence for significant stenosis of the major extracranial arterial vasculature. There is approximately 40-50% stenosis in the right carotid bifurcation and internal carotid artery o rigin due to atherosclerotic plaque and calcification. The estimate of stenosis included in the report of the imaging study was calculated using the NASCET method Reviewed by: Chacorta Wilson MD on 09/02/2020 8:34 AM PDT Approved by: Chacorta Wilson MD on 09/02/2020 8:34 AM PDT Station ID: [id number]
--- NOTE | 2020-09-02 08:37 | CT Report ---
PROCEDURE: ANGIO HEAD W/WO INDICATIONS: Altered mental status, headache CONTRAST: IV CONTRAST: Optiray 320 ml: 80 PO CONTRAST: *NO PO CONTRAST TECHNIQUE: Precontrast 4.5 mm thick angled axial sections acquired from the foramen magnum to the vertex. Afte r the administration of intravenous contrast, 1 mm thick sections acquired through the [place] of [place] is. Postcontrast 4.5 mm thick sections then re-acquired from the foramen magnum to the vertex. 3-di mensional lztcbtg-zklsljuug-eyscxzrfkq (MIP) and/or volume rendering reformats were acquired of the c entral intracranial vasculature. For radiation dose reduction, the following was used: automated ex posure control, adjustment of mA and/or kV according to patient size. COMPARISON: 10/21/2016 CT angiogram of the head FINDINGS: Image quality: Excellent. Anterior circulation: Intracranial internal carotid arteries are normal in size and flow. The flow within the paired anterior cerebral arteries is normal and symmetric. The flow within the middle cer ebral arteries is normal and symmetric. The anterior communicating artery is seen. No aneurysms are seen. Posterior circulation: Visualized portions of the vertebral arteries demonstrate normal caliber, and join to form a normal appearing basilar artery. Flow within the posterior cerebral arteries is norm al and symmetric. No aneurysms are seen. CSF spaces: Ventricles are normal in size and shape. Basal cisterns are patent. No extra-axial flu id collections. Brain: No midline shift. No intracranial bleeds or masses. Lopez-white matter interface appears int act. Skull and face: Calvarium and facial bones appear intact, without suspicious lesions. Sinuses: Visualized sinuses and mastoids are clear. IMPRESSION: No hemodynamically significant stenosis or occlusion of the intracranial arterial circulation. Reviewed by: Chacorta Wilson MD on 09/02/2020 8:35 AM PDT Approved by: Chacorta Wilson MD on 09/02/2020 8:35 AM PDT Station ID: [id number]
--- NOTE | 2020-09-02 08:45 | CT Report ---
PROCEDURE: CHEST WO INDICATIONS: chest pain then altered mental status TECHNIQUE: Noncontrast 5 mm thick sections acquired from the pulmonary apices to the posterior costophrenic angl es. 7 mm thick coronal and sagittal MIP reformats were then acquired. For radiation dose reduction, the following was used: automated exposure control, adjustment of mA and/or kV according to patient size. COMPARISON: CT angiogram of chest dated 03/15/2019. FINDINGS: Image quality: Excellent. Lungs and pleura: No acute air space opacities. Dependent atelectasis in posterior aspect of bilater al lung muse are seen. No pleural effusions or pneumothorax. Central and peripheral airways are pa tent and normal in caliber. Mediastinum: Heart size is mildly enlarged. No pericardial effusion. No mediastinal adenopathy by size criteria. Thoracic aorta and central pulmonary arteries are normal in size. Esophagus is trevor l in caliber. There is a small hiatal hernia. Bones and chest wall: No suspicious bony lesions. No vertebral body compression fractures. No axil azael or supraclavicular adenopathy by size criteria. The thyroid is normal in size and there are no incidental findings. Abdomen: Visualized upper abdominal solid organs and bowel loops appear normal in the absence of con trast. IMPRESSION: 1. Dependent atelectasis in posterior aspect of bilateral lung muse. No focal infiltrate, pleural e ffusion or pneumothorax. Airway is patent. 2. No mediastinal or hilar lymphadenopathy. Borderline cardiac megaly. No significant atherosclerotic disease. Small hiatal hernia. No discrepancies from pulmonary reading. Reviewed by: Justin Byrd MD on 09/02/2020 8:44 AM PDT Approved by: Justin Byrd MD on 09/02/2020 8:44 AM PDT Station ID: [id number]
--- NOTE | 2020-09-02 08:49 | PHARMACY PROGRESS NOTE ---
- Best Possible Medication History Admit Date and Time: 09/02/20 0517 Processed by: Pharmacy Medication History completed: Yes Secondary Source(s): Physician records, Pharmacy records Medication list updated using [facility] and documentation from [facility]CP visits. As the person ultimately responsible for medication therapy, providers are able to order a medication from an existing home medication list in [facility] via the "Reconcile Routine" prior to Confirmation of that medication by senior technical support analyst. Such practice is discouraged except when the physician, in their clinical judgment, deems that a medical need exists for a medication without regard to previous use.
[2020-09-02] MEDS ORDERED: ASPIRIN EC 81 MG TABLET PO SCH (09:00)
--- NOTE | 2020-09-02 09:02 | CT Report ---
PROCEDURE: ANGIO CHEST W/WO INDICATIONS: chest pain then headache and altered MS CONTRAST: IV CONTRAST: Optiray 320 ml: 80 PO CONTRAST: *NO PO CONTRAST TECHNIQUE: After the administration of intravenous contrast, 2 mm thick sections acquired from the pulmonary api daquan to the posterior costophrenic angles. For radiation dose reduction, the following was used: aut omated exposure control, adjustment of mA and/or kV according to patient size. COMPARISON: CT of chest without contrast from the same day and CT angiogram of chest dated 12/10/2019. FINDINGS: Image quality: Excellent. Pulmonary arteries: Pulmonary arteries are normal in size, and demonstrate no large intraluminal laurie ling defects to suggest central pulmonary embolism. More distal segmental and subsegmental branches of bilateral pulmonary arteries are several optimally opacified. Lungs and pleura: Dependent atelectasis in posterior aspect of bilateral lung muse are again seen, unchanged from earlier study. No acute airspace opacity. No pleural effusions or pneumothorax. Centr al and peripheral airways are patent. Mediastinum: Heart size is borderline enlarged, without pericardial effusion. No mediastinal or hil ar adenopathy. Thoracic aorta is normal in caliber and enhancement. There is no thoracic aortic ane urysm or dissection. Esophagus is normal in caliber, with a small hiatal hernia. Bones and chest wall: No suspicious bony lesions. Ribs and thoracic spine appear intact throughout. No axillary or supraclavicular adenopathy. The thyroid is normal in size and there are no incident al findings. Abdomen: Visualized upper abdominal solid organs appear normal in the early arterial phase of enhanc ement. IMPRESSION: 1. No thoracic aortic aneurysm or dissection. 2. No large central pulmonary emboli. 3. Dependent atelectasis in posterior bilateral lung muse. No focal infiltrate, pleural effusion or pneumothorax. 4. No mediastinal or hilar lymphadenopathy. No discrepancies from pulmonary reading. Reviewed by: Justin Byrd MD on 09/02/2020 9:01 AM PDT Approved by: Justin Byrd MD on 09/02/2020 9:01 AM PDT Station ID: [id number]
[2020-09-02] MEDS: ACETAMINOPHEN 325 MG TABLET PO PRN ×2 (09:25→19:16)
[2020-09-02] MEDS: ENOXAPARIN 40 MG/0.4 ML SYRINGE SUBQ SCH (10:11)
--- NOTE | 2020-09-02 11:51 | MRI Report ---
PROCEDURE: Brain W/O INDICATIONS: Neuro deficit. TECHNIQUE: Noncontrast axial T1 spin echo, axial T2 fast spin echo, sagittal and axial FLAIR, coronal T2 fast sp in echo, axial gradient echo, axial diffusion and ADC through the brain. COMPARISON: None. FINDINGS: Image quality: Excellent. CSF Spaces: Basal cisterns are patent. No extra-axial fluid collections. Ventricles are normal in size and shape. Brain: No intracranial masses or hemorrhage. There is mild cerebral volume loss. There is a minimal degree of patchy high FLAIR signal within the periventricular and subcortical white matter. Lopez/whit e matter interface is normal. Brainstem appears normal. Diffusion-weighted images demonstrate no ac prudence ischemic insult. No chronic ischemic insults. Normal intravascular flow voids are present. Skull and face: Calvarium has normal marrow signal. Orbits appear normal. Sinuses: Sinuses and mastoids are clear. IMPRESSION: 1. Mild volume loss. Minimal small ischemic disease. 2. No acute process. No recent infarct. Reviewed by: Flor Ayala MD on 09/02/2020 11:50 AM PDT Approved by: Flor Ayala MD on 09/02/2020 11:50 AM PDT Station ID: [id number]
[2020-09-02 12:37] LABS: ESTIMATED AVERAGE GLUCOSE 229 mg/dL (70-100); HEMOGLOBIN A1c% 9.6 % (4.27-6.07)
[2020-09-02] MEDS ORDERED: INSULIN GLARGINE 300 UNIT/3 ML PEN SUBQ SCH (21:00)
[2020-09-02] MEDS ORDERED: ATORVASTATIN 40 MG TABLET PO SCH (21:00)
[2020-09-03] MEDS: INSULIN REGULAR HUMAN 300 UNIT/3 ML VIAL SUBQ SCH ×3 (00:03→11:37)
[2020-09-03] MEDS: SODIUM CHLORIDE FLUSH 0.9% 10 ML SYRINGE IVP SCH ×2 (00:05→08:50)
[2020-09-03] MEDS: ACETAMINOPHEN 325 MG TABLET PO PRN ×2 (04:27→09:00)
[2020-09-03 04:30] LABS: BASOPHILS % (AUTO) 0.3 %; EOSINOPHILS # (AUTO) 0.2 10^3/uL (0.0-0.7); EOSINOPHILS % (AUTO) 2.3 %; HCT - HEMATOCRIT 41.5 % (42.0-52.0); HGB - HEMOGLOBIN 13.9 g/dL (14.0-18.0); LYMPHOCYTES # (AUTO) 1.8 10^3/uL (1.5-3.5); LYMPHOCYTES % (AUTO) 27.8 %; MEAN CORPUSCULAR HEMOGLOBIN 31.5 pg (27.0-31.0); MEAN CORPUSCULAR HGB CONC 33.5 g/dL (32.0-36.0); MEAN CORPUSCULAR VOLUME 94.1 fL (80.0-94.0); MEAN PLATELET VOLUME 10.6 fL (7.4-11.4); MONOCYTES # (AUTO) 0.9 10^3/uL (0.0-1.0); NEUTROPHILS # (AUTO) 3.7 10^3/uL (1.5-6.6); NEUTROPHILS % (AUTO) 56.4 %; PLT - PLATELET COUNT 175 10^3/uL (130-450); RED BLOOD COUNT 4.41 10^6/uL (4.70-6.10); RED CELL DISTRIBUTION WIDTH 12.4 % (12.0-15.0); WHITE BLOOD COUNT 6.6 x10^3/uL (4.8-10.8)
[2020-09-03 04:39] LABS: CALCIUM 9.5 mg/dL (8.5-10.3); CREATININE 0.7 mg/dL (0.6-1.2); POTASSIUM 3.6 mmol/L (3.5-5.0)
[2020-09-03] MEDS: ENOXAPARIN 40 MG/0.4 ML SYRINGE SUBQ SCH (08:50)
[2020-09-03] MEDS ORDERED: polyethylene glycoL 3350 17 GM PACKET PO SCH (09:00)
[2020-09-03] MEDS ORDERED: CLOPIDOGREL 75 MG TABLET PO SCH (09:00)
--- NOTE | 2020-09-03 10:01 | DISCHARGE SUMMARY ---
Discharge Summary Admit Date: 09/02/20 Discharge Date: 09/03/20 Discharging Provider: Lilli Martines Primary Care Provider: Matthew Malone Code Status: Attempt Resuscitation Condition at Discharge: Stable Discharge Disposition: 01 Home, Self Care - DIAGNOSES Admission Diagnoses: CVA Chest pain Hypertension Insulin-dependent type 2 diabetes, uncontrolled Discharge Diagnoses with Status of Each Condition: CVA: Ruled out. MRI was negative for any acute stroke Chest pain: CT imaging was negative for any blood clots or dissection. Troponin was trended x3 and negative. Patient may follow-up with primary care physician for outpatient stress test. Hypertension: Chronic. Continue home medication Insulin-dependent type 2 diabetes, uncontrolled: Chronic. Continue home medication - HPI History of Present Illness: This is a 54-year-old male with a past medical history significant for insulin- dependent diabetes mellitus, history of stroke with minimal residual left-sided weakness, history of cardiac arrest who presents today complaining of worsening back pain and left-sided weakness. He states he has had back pain for last 3 to 4 days but this has progressed and became so severe last night. He says is predominant located in his right shoulder blade but does radiate to his chest. He denies a history of coronary artery disease or myocardial infarction. He states he did fall back in June while in the shower and hit his back. He also noticed that around 7 PM last night, he had worsening of his left sided weakness and had difficulty with his speech. When EMS arrived, they noted that he was still having chest pain became less interactive and had become more drowsy. It was also noticed that his speech was slurred and so he was brought to the emergency department as a stroke alert. The patient states he did have a stroke last year when he was hospitalized at [facility] in [place]. He reports having a cardiac arrest 3 times during that hospitalization. He states he is on aspirin at home. He reports his blood glucose has been elevated yesterday and that he has been compliant with his insulin. Rest of the history is limited due to his dysarthria. In the emergency department, he underwent a CT of the head which was unremarkable. He then underwent a CTA of the head and neck which showed no significant stenosis. There was concern for potential dissection given his severe back pain and his neurologic deficits and so he underwent further imaging with a CTA of the chest which did not reveal a dissection. His EKG did not suggest ischemia and his troponin was negative x2. After discussion with the emergency room provider, given the patient's ongoing chest pain and neuro deficits, it was felt that he might be better served at a higher level of care with cardiology and neurology. The ER physician did speak with multiple hospitals but unfortunately there were no beds available and after speaking to [facility], cardiology and neurology both declined transfer to their services and so he will be admitted here for further work-up and management. He did receive rectal aspirin in the emergency department. I did ask him about goals of care and he would like to be a full code. - HOSPITAL COURSE Hospital Course: Patient had CT and CTA head and neck which was negative for any acute processes. He also had an MRI of the brain which was negative for any acute stroke. He had a CT angio of the chest which was negative for PEs or dissections. His troponin was trended x3 and negative. 2D echocardiogram showed left ventricular ejection fraction of 55 to 60%. There was mild concentric left ventricle hypertrophy. Right ventricle was normal size. RVSP was less than 35 mmHg. There was no evidence of aortic stenosis. There was no evidence of aortic regurgitation. No mass or thrombus was identified. There was no pleural effusion. The rest of the patient's hospital stay was unremarkable. He is being discharged home in stable condition. - ALLERGIES Allergies/Adverse Reactions: Allergies Allergy/AdvReac Type Severity Reaction Status Date / Time adhesive tape Allergy Rash Verified 09/01/20 23:42 pregabalin [From Lyrica] Allergy Unknown Verified 09/01/20 23:42 - MEDICATIONS Home Medications: Ambulatory Orders Medication Instructions Recorded Confirmed Insulin Glargine,Hum.rec.anlog 30 unit SUBQ QPM 10/27/17 09/02/20 [Basaglar Cesarpen U-100] methIMAzole [Methimazole] 5 mg PO DAILY 10/30/18 09/02/20 Duloxetine HCl [Cymbalta] 120 mg PO DAILY 04/24/20 09/02/20 Gabapentin [Neurontin] 600 mg PO TID 04/24/20 09/02/20 Glimepiride [Amaryl] 4 mg PO DAILY 04/24/20 09/02/20 Tizanidine HCl [Zanaflex] 4 mg PO Q8H PRN 04/24/20 09/02/20 Meloxicam [Mobic] 15 mg PO DAILY 09/01/20 09/01/20 Nortriptyline [Pamelor] 25 mg PO DAILY 09/01/20 09/01/20 Aspirin [Aspirin EC] 81 mg PO DAILY 09/02/20 09/02/20 Insulin Aspart [Insulin Aspart 7 units SQ BIDAC 09/02/20 09/02/20 Flexpen] - PHYSICAL EXAM AT DISCHARGE General Appearance: positive: No acute distress, Alert Eyes Bilateral: positive: PERRL, EOMI ENT: positive: No signs of dehydration Neck: positive: No JVD, Trachea midline Respiratory: positive: Chest non-tender, No respiratory distress, Breath sounds nml. negative: Wheezes, Rales, Rhonchi Cardiovascular: positive: Regular rate & rhythm Abdomen: positive: Non-tender, No organomegaly, Nml bowel sounds, No distention. negative: Guarding, Rebound Back: positive: Nml inspection Skin: positive: Color nml, No rash, Warm, Dry Extremities: positive: Non-tender, Full ROM, Nml appearance, No pedal edema Neurologic/Psychiatric: positive: Oriented x3, Mood/affect nml - LABS Result Diagrams: 09/03/20 04:20 09/03/20 04:20 - TIME SPENT Time Spent in Discharge (Minutes): 25
--- NOTE | 2020-09-03 10:04 | Discharge Plan ---
Discharge Plan Problem Reviewed?: Yes Disposition: 01 Home, Self Care Condition: Stable Diet: Regular Activity Restrictions: Activity as Tolerated Health Concerns: You were admitted with complaint of left-sided weakness and chest pain with radiation to the back. Work-up included a CT of the brain and neck which was unremarkable. Further work-up included an MRI of the brain which was negative for any acute ischemic process. He also had a CT angiogram of the chest which was negative for any blood clot or dissection. You had your troponins trended x3 and they were normal. Your EKG was unremarkable for any ischemic event. You have been monitored over a 24-hour. And are stable. Consequently you are being discharged home to continue with your home medications for chronic medical problems. You may follow-up with your primary care physician As needed. To you. You expressed understanding and are in agreement with the plan. Plan of Treatment: You were admitted with complaint of left-sided weakness and chest pain with radiation to the back. Work-up included a CT of the brain and neck which was unremarkable. Further work-up included an MRI of the brain which was negative for any acute ischemic process. He also had a CT angiogram of the chest which was negative for any blood clot or dissection. You had your troponins trended x3 and they were normal. Your EKG was unremarkable for any ischemic event. You have been monitored over a 24-hour. And are stable. Consequently you are being discharged home to continue with your home medications for chronic medical problems. You may follow-up with your primary care physician As needed. To you. You expressed understanding and are in agreement with the plan. Care Goals: You were admitted with complaint of left-sided weakness and chest pain with radiation to the back. Work-up included a CT of the brain and neck which was unremarkable. Further work-up included an MRI of the brain which was negative for any acute ischemic process. He also had a CT angiogram of the chest which was negative for any blood clot or dissection. You had your troponins trended x3 and they were normal. Your EKG was unremarkable for any ischemic event. You have been monitored over a 24-hour. And are stable. Consequently you are being discharged home to continue with your home medications for chronic medical problems. You may follow-up with your primary care physician As needed. To you. You expressed understanding and are in agreement with the plan. Assessment: You were admitted with complaint of left-sided weakness and chest pain with radiation to the back. Work-up included a CT of the brain and neck which was unremarkable. Further work-up included an MRI of the brain which was negative for any acute ischemic process. He also had a CT angiogram of the chest which was negative for any blood clot or dissection. You had your troponins trended x3 and they were normal. Your EKG was unremarka ble for any ischemic event. You have been monitored over a 24-hour. And are stable. Consequently you are being discharged home to continue with your home medications for chronic medical problems. You may follow-up with your primary care physician As needed. To you. You expressed understanding and are in agreement with the plan. No Smoking: If you smoke, Please STOP! Call for help. Follow-up with: Matthew Malone MD [Primary Care Provider] -
[2020-09-03 11:35] VITALS: BP 151/94
== END 2020-09-03 12:18 | disposition home or self-care (01) | DRG 313 ==
LOC: EDUNIT# → ED 21:35 → MS2 09-02 05:17
PROVIDERS: ADMIT Internal Medicine; ATTEND Internal Medicine
DX: R07.9 Chest pain, unspecified (principal); I69.954 Hemiplegia and hemiparesis following unspecified cerebrovascular disease affecting left non-dominant side; M54.9 Dorsalgia, unspecified; R53.1 Weakness; R47.1 Dysarthria and anarthria; I10 Essential (primary) hypertension; E11.65 Type 2 diabetes mellitus with hyperglycemia; E78.00 Pure hypercholesterolemia, unspecified; E03.9 Hypothyroidism, unspecified; F31.9 Bipolar disorder, unspecified; Z20.822 Contact with and (suspected) exposure to COVID-19; Z79.4 Long term (current) use of insulin; Z79.82 Long term (current) use of aspirin; Z91.81 History of falling; Z86.74 Personal history of sudden cardiac arrest; Z79.899 Other long term (current) drug therapy; Z87.891 Personal history of nicotine dependence
CPT/HCPCS: 0202U; 36415; 70450; 70496; 70498; 70551; 71250; 71275; 80048; 80053; 80061; 80306; 80320; 81001; 82009; 83036; 84484; 85025; 85610; 85730; 92610; 93005; 93306; 96374; 96375; 96376; 99285; A9270; J1170; J1650; J1815; Q9967; 81003; 83721; 87086

== ENCOUNTER 2020-09-16 16:48 | Outpatient (CLI) | payer MEDICAID ==
--- NOTE | 2020-09-17 09:13 | XRAY Report ---
PROCEDURE: Shoulder 3 View LT INDICATIONS: NECK AND BACK PX TECHNIQUE: 3 views of the shoulder were acquired. COMPARISON: Chest CT and chest plain films from the recent past reviewed including CT scanning 021 and 09/01/2020 through the chest. This includes portions of the left shoulder FINDINGS: Bones: No fractures or dislocations. No suspicious bony lesions. Visualized ribs appear intact. Soft tissues: No suspicious soft tissue calcifications. IMPRESSION: Mild to moderate AC joint osteoarthritis. Mild narrowing of the glenohumeral joint also. No trauma found. No subluxation. No acute disease. Reviewed by: Pancho Crowell MD on 09/17/2020 9:11 AM PDT Approved by: Pancho Crowell MD on 09/17/2020 9:11 AM PDT Station ID: [id number]
--- NOTE | 2020-09-17 10:00 | XRAY Report ---
PROCEDURE: Cervical Spine 2 View INDICATIONS: NECK AND BACK PX TECHNIQUE: 4 view(s) of the cervical spine were acquired. COMPARISON: Cervical spine included in CT angiogram of the neck 09/01/2020 reviewed. FINDINGS: Bones: No fractures or dislocations to the T1 level. The lateral masses of C1 appear intact on the odontoid view. No suspicious bony lesions. There is an anterior fusion plate spanning C6-C7, with n o evidence of device loosening or disruption. A prior presumed osseous fusion or congenital fusion as a variant is present at C3-C4 involving both the vertebral bodies and the facet joints. Soft tissues: No prevertebral soft tissue swelling. IMPRESSION: Prior anterior fusion C6-7 and presumed operative osseous fusion C3-4, no subluxation or acute trauma found. Osteophytic spurring is relatively prominent anteriorly at C4-5 and C5-6. Reviewed by: Pancho Crowell MD on 09/17/2020 9:59 AM PDT Approved by: Pancho Crowell MD on 09/17/2020 9:59 AM PDT Station ID: [id number]
== END 2020-09-16 23:59 | disposition home or self-care (01) ==
LOC: DI.N 16:48
PROVIDERS: ATTEND Family Medicine
DX: Z98.1 Arthrodesis status (principal); M46.02 Spinal enthesopathy, cervical region; M19.012 Primary osteoarthritis, left shoulder